=== PATIENT | female | born 1950 | race African-American/Black ===

== ENCOUNTER → 2022-09-11 | Outpatient (CLI) | payer MEDICARE, MEDICAID ==
[~2022-09-11] MED LIST: ALBU18; AMLO-496 PO; ASPI81CH43; ATOR-47 PO; BECL80AE9; CARV25TA55 PO; DORZOLAMIDE TIMOLOL; DOXY-332 PO; FERR325T20 PO; FURO40TA4 PO; IBU800T; LOSA-69 PO; NITROSTAT; PRED20TA2 PO; SULF500T37
[2022-09-11 15:05] LABS: Eosinophils # (auto) 0 10 ^3/uL (0-0.8); Lymphocytes # (auto) 1.4 10 ^3/uL (0.4-5.4)
[2022-09-11 15:07] LABS: Basophils # (auto) 0.1 10 ^3/uL (0-0.2); Basophils % (auto) 0.7 % (0.0-2.0); Eosinophils % (auto) 0.1 % (0.0-7.0); Hematocrit 39.7 % (36.0-46.0); Hemoglobin 12.9 g/dL (12.2-16.2); Lymphocytes % (auto) 19.7 % (10.0-50.0); Mean Corpuscular Hemoglobin 26.1 pg (28.0-32.0); Mean Corpuscular Hgb Conc. 32.5 g/dL (32.0-36.0); Mean Corpuscular Volume 80.5 fL (80.0-100.0); Monocytes # (auto) 0.6 10 ^3/uL (0-1.3); Monocytes % (auto) 7.7 % (0.0-12.0); Neutrophils # (auto) 5.2 10 ^3/uL (1.6-8.6); Neutrophils % (auto) 71.8 % (37.0-80.0); Nucleated Red Blood Cells % 0.4 %; Red Blood Cells 4.93 10^6/uL (4.0-5.20); White Blood Cell 7.3 10^3/uL (4.4-10.8)
[2022-09-11 15:09] LABS: Red Cell Distribution Width 20.9 % (11.8-14.3)
[2022-09-11 16:15] LABS: Albumin 3.4 g/dL (3.4-5.0); BUN/Creatinine Ratio 17.5 (10.0-20.0); Calcium 9.3 mg/dL (8.5-10.1); Potassium 3.9 mmol/L (3.5-5.1)
[2022-09-11 16:17] LABS: Bilirubin, Total 0.8 mg/dL (0.2-1.0); Total Protein 7.6 g/dL (6.4-8.2)
== END | disposition home or self-care (01) ==
LOC: LAB 14:35
PROVIDERS: ATTEND Student in an Organized Health Care Education/Training Program
DX: I12.9 Hypertensive chronic kidney disease with stage 1 through stage 4 chronic kidney disease, or unspecified chronic kidney disease (principal); N18.31 Chronic kidney disease, stage 3a; R73.03 Prediabetes; J96.00 Acute respiratory failure, unspecified whether with hypoxia or hypercapnia; Z79.899 Other long term (current) drug therapy
CPT/HCPCS: 36415; 80053; 80061; 83036; 85025

== ENCOUNTER 2022-09-25 16:12 | Inpatient (IN) | payer MEDICARE, MEDICAID ==
[~2022-09-25] VITALS: Ht 142.2 cm; Wt 70.7 kg
[2022-09-25 17:15] LABS: Basophils # (auto) 0.1 10 ^3/uL (0-0.2); Basophils % (auto) 1.1 % (0.0-2.0); Eosinophils # (auto) 0 10 ^3/uL (0-0.8); Eosinophils % (auto) 0.1 % (0.0-7.0); Hematocrit 38.5 % (36.0-46.0); Hemoglobin 11.8 g/dL (12.2-16.2); Mean Corpuscular Hgb Conc. 30.7 g/dL (32.0-36.0); Mean Corpuscular Volume 84.8 fL (80.0-100.0); Monocytes # (auto) 0.6 10 ^3/uL (0-1.3); Monocytes % (auto) 7.6 % (0.0-12.0); Neutrophils # (auto) 5.6 10 ^3/uL (1.6-8.6); Neutrophils % (auto) 67.2 % (37.0-80.0); Nucleated Red Blood Cells % 0.1 %; Red Blood Cells 4.55 10^6/uL (4.0-5.20); White Blood Cell 8.3 10^3/uL (4.4-10.8)
[2022-09-25 17:23] LABS: Albumin 3.2 g/dL (3.4-5.0); Calcium 8.5 mg/dL (8.5-10.1); Potassium 3.9 mmol/L (3.5-5.1)
[2022-09-25 17:28] LABS: BUN/Creatinine Ratio 13.3 (10.0-20.0); Bilirubin, Total 0.9 mg/dL (0.2-1.0); Total Protein 6.8 g/dL (6.4-8.2)
[2022-09-25] MEDS ORDERED: methylPREDNISolone SOD SUCC 125 MG/2 ML VL IV ONE (17:30)
[2022-09-25] MEDS ORDERED: FUROSEMIDE 40 MG/4 ML VIAL IV ONE (17:30)
[2022-09-26] MEDS ORDERED: ACETAMINOPHEN 325 MG TAB PO PRN (01:00)
[2022-09-26] MEDS ORDERED: ALBUTEROL SULF 2.5 MG/0.5ML(0.5%) NEB SOLN NEB PRN (01:00)
[2022-09-26 01:41] VITALS: BP 158/86
[2022-09-26 01:45] LABS: Cholesterol 162 mg/dL (< 200); Triglycerides 86 mg/dL (< 150)
[2022-09-26 01:48] LABS: HDL Cholesterol 49 mg/dL (40-59); LDL Cholesterol 105 mg/dL (< 100)
[2022-09-26] MEDS: SODIUM CHLORIDE 0.9% 1,000 ML IV SCH ×2 (01:54→17:40)
[2022-09-26] MEDS: ALBUTEROL SULF 2.5 MG/0.5ML(0.5%) NEB SOLN NEB SCH ×7 (02:00→22:26)
[2022-09-26] MEDS: IPRATROPIUM BROM 0.5 MG/2.5ML INH SOL NEB SCH ×7 (02:00→22:26)
[2022-09-26] MEDS ORDERED: PATIENTS OWN MEDICATION (Ferrous Sulfate (Ferosul) 1 TAB) PO SCH (10:00)
[2022-09-26] MEDS: CARVEDILOL 12.5 MG TAB PO SCH ×2 (10:00→22:08)
[2022-09-26] MEDS ORDERED: PATIENTS OWN MEDICATION (Carvedilol 1 TAB) PO SCH (10:00)
[2022-09-26] MEDS ORDERED: PATIENTS OWN MEDICATION (Amlodipine Besylate 1 TAB) PO SCH (10:00)
[2022-09-26 10:33] LABS: INR 1.12 (0.9-1.15); Partial Thromboplastin Time 27.9 sec (24.6-33.4)
[2022-09-26] MEDS: ENOXAPARIN SOD 40 MG/0.4 ML SYRINGE SC SCH (11:29)
[2022-09-26] MEDS: FUROSEMIDE 20 MG/2 ML VIAL IV SCH (11:29)
[2022-09-26] MEDS: LOSARTAN POTASSIUM 50 MG TAB PO SCH ×2 (11:29→22:07)
[2022-09-26] MEDS: FERROUS SULFATE 325mg EC TAB PO SCH ×2 (11:30→22:08)
[2022-09-26] MEDS: ASPirin 81 mg TAB PO SCH (11:30)
[2022-09-26] MEDS: amLODIPine BESYLATE 5 MG TAB PO SCH (11:30)
[2022-09-26] MEDS ORDERED: cefTRIAXone 1GM/50ML D5W 50 ML IV ONE (12:30)
[2022-09-26] MEDS ORDERED: AZITHROMYCIN 500MG/ 250ML 250 ML IV ONE (13:15)
[2022-09-26] MEDS ORDERED: diphenhdrAMINE HCL 50 MG/1 ML VL IV ONE ×2 (15:45→16:15)
[2022-09-26] MEDS ORDERED: diphenhdrAMINE HCL 50 MG/1 ML VL ONE (15:46)
[2022-09-26] MEDS ORDERED: methylPREDNISolone SOD SUCC 125 MG/2 ML VL ONE (15:49)
[2022-09-26] MEDS ORDERED: methylPREDNISolone SOD SUCC 125 MG/2 ML VL IV ONE (16:15)
[2022-09-26 20:00] VITALS: BP 123/87
[2022-09-26] MEDS ORDERED: CLON0.1T PO (20:31)
[2022-09-26] MEDS: ATORVASTATIN 20 MG TAB PO SCH (22:07)
[2022-09-26 22:08] VITALS: BP 123/87
[2022-09-27] MEDS: ALBUTEROL SULF 2.5 MG/0.5ML(0.5%) NEB SOLN NEB SCH ×6 (02:00→22:24)
[2022-09-27] MEDS: IPRATROPIUM BROM 0.5 MG/2.5ML INH SOL NEB SCH ×6 (02:00→22:24)
[2022-09-27 04:44] VITALS: BP 102/49
[2022-09-27 06:30] LABS: Albumin 2.6 g/dL (3.4-5.0); Basophils # (auto) 0 10 ^3/uL (0-0.2); Calcium 8.5 mg/dL (8.5-10.1); Eosinophils # (auto) 0 10 ^3/uL (0-0.8); Lymphocytes # (auto) 1.2 10 ^3/uL (0.4-5.4); Lymphocytes % (auto) 9.7 % (10.0-50.0); Monocytes # (auto) 0.6 10 ^3/uL (0-1.3)
[2022-09-27 06:32] LABS: Basophils % (auto) 0.1 % (0.0-2.0); Hematocrit 32.5 % (36.0-46.0); Hemoglobin 10.3 g/dL (12.2-16.2); Mean Corpuscular Hemoglobin 26.2 pg (28.0-32.0); Mean Corpuscular Hgb Conc. 31.6 g/dL (32.0-36.0); Mean Corpuscular Volume 82.9 fL (80.0-100.0); Monocytes % (auto) 4.5 % (0.0-12.0); Neutrophils # (auto) 10.8 10 ^3/uL (1.6-8.6); Neutrophils % (auto) 85.7 % (37.0-80.0); Nucleated Red Blood Cells % 0.1 %; Red Blood Cells 3.93 10^6/uL (4.0-5.20); Red Cell Distribution Width 19.8 % (11.8-14.3); White Blood Cell 12.6 10^3/uL (4.4-10.8)
[2022-09-27 06:36] LABS: BUN/Creatinine Ratio 21.7 (10.0-20.0); Bilirubin, Total 0.4 mg/dL (0.2-1.0); Total Protein 6.3 g/dL (6.4-8.2)
[2022-09-27] MEDS ORDERED: cefTRIAXone 1GM/50ML D5W 50 ML IV SCH (09:00)
[2022-09-27 09:04] VITALS: BP 126/54
[2022-09-27] MEDS: FERROUS SULFATE 325mg EC TAB PO SCH ×2 (09:24→21:29)
[2022-09-27] MEDS: amLODIPine BESYLATE 5 MG TAB PO SCH (09:24)
[2022-09-27] MEDS: LOSARTAN POTASSIUM 50 MG TAB PO SCH ×2 (09:24→21:29)
[2022-09-27] MEDS: ASPirin 81 mg TAB PO SCH (09:25)
[2022-09-27] MEDS: FUROSEMIDE 20 MG/2 ML VIAL IV SCH (09:25)
[2022-09-27] MEDS: CARVEDILOL 12.5 MG TAB PO SCH ×2 (09:25→21:29)
[2022-09-27] MEDS: ENOXAPARIN SOD 40 MG/0.4 ML SYRINGE SC SCH (09:26)
[2022-09-27] MEDS: AZITHROMYCIN 500MG/ 250ML 250 ML IV SCH (09:26)
[2022-09-27] MEDS: SODIUM CHLORIDE 0.9% 1,000 ML IV SCH (10:20)
[2022-09-27 12:23] VITALS: BP 114/63
[2022-09-27 16:28] VITALS: BP 106/49
[2022-09-27] MEDS: ATORVASTATIN 20 MG TAB PO SCH (21:32)
[2022-09-28] VITALS (8 sets, daily range): BP systolic 101–166; BP diastolic 52–83
[2022-09-28] MEDS: IPRATROPIUM BROM 0.5 MG/2.5ML INH SOL NEB SCH ×7 (02:00→22:06)
[2022-09-28] MEDS: ALBUTEROL SULF 2.5 MG/0.5ML(0.5%) NEB SOLN NEB SCH ×7 (02:00→22:06)
[2022-09-28] MEDS: SODIUM CHLORIDE 0.9% 1,000 ML IV SCH ×2 (03:00→19:40)
[2022-09-28] MEDS: ASPirin 81 mg TAB PO SCH (09:49)
[2022-09-28] MEDS: AZITHROMYCIN 500MG/ 250ML 250 ML IV SCH (09:49)
[2022-09-28] MEDS: FUROSEMIDE 20 MG/2 ML VIAL IV SCH (09:49)
[2022-09-28] MEDS: FERROUS SULFATE 325mg EC TAB PO SCH ×2 (09:49→21:30)
[2022-09-28] MEDS: amLODIPine BESYLATE 5 MG TAB PO SCH (09:50)
[2022-09-28] MEDS: LOSARTAN POTASSIUM 50 MG TAB PO SCH ×2 (09:50→21:30)
[2022-09-28] MEDS: CARVEDILOL 12.5 MG TAB PO SCH ×2 (09:50→21:30)
[2022-09-28] MEDS: ENOXAPARIN SOD 40 MG/0.4 ML SYRINGE SC SCH (09:50)
[2022-09-28] MEDS ORDERED: ALBUAER3 IN (10:50)
[2022-09-28] MEDS ORDERED: AZIT500T66 PO (10:50)
[2022-09-28] MEDS: ATORVASTATIN 20 MG TAB PO SCH (21:30)
[2022-09-29] MEDS: IPRATROPIUM BROM 0.5 MG/2.5ML INH SOL NEB SCH ×4 (02:19→15:04)
[2022-09-29] MEDS: ALBUTEROL SULF 2.5 MG/0.5ML(0.5%) NEB SOLN NEB SCH ×4 (02:19→15:04)
[2022-09-29 03:29] VITALS: BP 154/76
[2022-09-29 05:00] VITALS: BP 111/48
[2022-09-29 08:00] VITALS: BP 135/64
[2022-09-29 08:10] VITALS: BP 135/64
[2022-09-29] MEDS: FERROUS SULFATE 325mg EC TAB PO SCH (10:18)
[2022-09-29] MEDS: CARVEDILOL 12.5 MG TAB PO SCH (10:18)
[2022-09-29] MEDS: amLODIPine BESYLATE 5 MG TAB PO SCH (10:19)
[2022-09-29] MEDS: ENOXAPARIN SOD 40 MG/0.4 ML SYRINGE SC SCH (10:20)
[2022-09-29] MEDS: FUROSEMIDE 20 MG/2 ML VIAL IV SCH (10:20)
[2022-09-29] MEDS: ASPirin 81 mg TAB PO SCH (10:20)
[2022-09-29] MEDS: AZITHROMYCIN 500MG/ 250ML 250 ML IV SCH (10:20)
[2022-09-29] MEDS: LOSARTAN POTASSIUM 50 MG TAB PO SCH (10:22)
[2022-09-29 12:15] VITALS: BP 142/63
[2022-09-29] MEDS: SODIUM CHLORIDE 0.9% 1,000 ML IV SCH (12:20)
== END 2022-09-29 16:39 | disposition home or self-care (01) | DRG 139 ==
LOC: ER 16:12 → OVERFLOW 09-26 01:04 → WEST WING 09-26 18:25
PROVIDERS: ADMIT Nurse Practitioner Family; ATTEND Family Medicine
DX: J18.9 Pneumonia, unspecified organism (principal); J96.01 Acute respiratory failure with hypoxia; I27.0 Primary pulmonary hypertension; J44.1 Chronic obstructive pulmonary disease with (acute) exacerbation; J44.0 Chronic obstructive pulmonary disease with (acute) lower respiratory infection; E66.01 Morbid (severe) obesity due to excess calories; Z20.822 Contact with and (suspected) exposure to COVID-19; Z96.651 Presence of right artificial knee joint; M06.9 Rheumatoid arthritis, unspecified; I25.10 Atherosclerotic heart disease of native coronary artery without angina pectoris; E78.00 Pure hypercholesterolemia, unspecified; Z87.891 Personal history of nicotine dependence; Z82.49 Family history of ischemic heart disease and other diseases of the circulatory system; Z68.34 Body mass index [BMI] 34.0-34.9, adult; I25.2 Old myocardial infarction; Z98.51 Tubal ligation status; Z88.8 Allergy status to other drugs, medicaments and biological substances
CPT/HCPCS: 36415; 71045; 80053; 80061; 83735; 83880; 84443; 84484; 85025; 85610; 85730; 93005; 94640; 96365; 96368; 96372; 96375; 96376; G0378; J0696

== ENCOUNTER 2023-03-16 21:32 | Inpatient (IN) | payer MEDICARE, MEDICAID ==
[~2023-03-16] VITALS: Ht 142.2 cm; Wt 64.2 kg
[~2023-03-16 21:32] MED LIST changes: +ALBUAER3 IN; -AMLO-496 PO; +AMLO1TAB23 PO; +AZIT500T66 PO; +CLON0.1T PO; -DOXY-332 PO; -LOSA-69 PO; +LOSA50TA46 PO; -PRED20TA2 PO; -SULF500T37
[2023-03-16 22:05] LABS: Basophils # (auto) 0 10 ^3/uL (0-0.2); Basophils % (auto) 0.3 % (0.0-2.0); Eosinophils # (auto) 0 10 ^3/uL (0-0.8); Eosinophils % (auto) 0.1 % (0.0-7.0); Hemoglobin 13.7 g/dL (12.2-16.2); Lymphocytes # (auto) 2.8 10 ^3/uL (0.4-5.4); Lymphocytes % (auto) 26.8 % (10.0-50.0); Mean Corpuscular Hemoglobin 27.2 pg (28.0-32.0); Monocytes # (auto) 0.9 10 ^3/uL (0-1.3); Monocytes % (auto) 8.7 % (0.0-12.0); Neutrophils # (auto) 6.6 10 ^3/uL (1.6-8.6); Neutrophils % (auto) 64.1 % (37.0-80.0); Nucleated Red Blood Cells % 0.2 %; Red Blood Cells 5.06 10^6/uL (4.0-5.20); Red Cell Distribution Width 19.3 % (11.8-14.3); White Blood Cell 10.4 10^3/uL (4.4-10.8)
[2023-03-16 22:25] LABS: Alanine Aminotransferase 24 U/L (7-40); Alkaline Phosphatase 79 U/L (46-116); Anion Gap 4 (5-15); Aspartate Aminotransferase 13 U/L (13-40); BUN/Creatinine Ratio 13.3 (10.0-20.0); Bilirubin, Total 0.8 mg/dL (0.2-1.0); Blood Urea Nitrogen 11 mg/dL (9-23); Calcium 9.8 mg/dL (8.7-10.4); Carbon Dioxide 35 mmol/L (20-30); Chloride 99 mmol/L (98-107); Glucose 117 mg/dL (74-106); Magnesium 1.8 mg/dL (1.6-2.6); Potassium 3.8 mmol/L (3.5-5.1); Sodium 138 mmol/L (136-145); Total Protein 7.1 g/dL (5.7-8.2)
[2023-03-16 22:40] LABS: INR 1.08 (0.9-1.15); Partial Thromboplastin Time 25.6 SEC (24.5-34.5); Prothrombin Time 11.3 sec (9.3-11.8)
[2023-03-16 22:45] VITALS: PULSE 55; RESP 16; O2SAT 98
[2023-03-16 23:02] LABS: Urine Bacteria NONE SEEN /hpf (None Seen); Urine Blood Negative /uL (Negative); Urine Clarity Clear (Clear); Urine Color Yellow (Yellow); Urine Protein, UAD TRACE (Negative); Urine Specific Gravity 1.014 (1.001-1.035); Urine Urobilinogen Normal (Negative); Urine WBC 1 /hpf (0 - 5)
[2023-03-17] VITALS (8 sets, daily range): BP systolic 135–175; BP diastolic 56–67; PULSE 50–83; RESP 12–22; TEMP 97.9–98.1; O2SAT 91–100
[2023-03-17] MEDS ORDERED: cloNIDine HCL 0.1 MG TAB PO PRN (10:00)
[2023-03-17] MEDS ORDERED: ONDANSETRON HCL 4 MG/2 ML VIAL IV PRN (10:15)
[2023-03-17] MEDS ORDERED: ACETAMINOPHEN 325 MG TAB PO PRN (10:15)
[2023-03-17] MEDS ORDERED: MORPHINE SULFATE 4 MG/ML SYR/VIAL IV PRN (10:15)
[2023-03-17] MEDS ORDERED: NITROGLYCERIN 0.4 MG SL TAB SL PRN (10:15)
[2023-03-17] MEDS: ASPirin 81 mg TAB PO SCH (10:23)
[2023-03-17] MEDS: LOSARTAN POTASSIUM 50 MG TAB PO SCH ×2 (10:23→22:02)
[2023-03-17] MEDS: ALBUTEROL MEDNEB 2.5 mg/3ml NEB NEB SCH ×3 (10:45→22:23)
[2023-03-17] MEDS: IPRATROPIUM BROM 0.5 MG/2.5ML INH SOL NEB SCH ×4 (10:45→22:23)
[2023-03-17 11:37] LABS: INR 1.07 (0.9-1.15); Prothrombin Time 11.2 sec (9.3-11.8)
[2023-03-17] MEDS: FUROSEMIDE 40 MG/4 ML VIAL IV SCH (18:06)
[2023-03-17] MEDS: FERROUS SULFATE 325mg EC TAB PO SCH (22:01)
[2023-03-17] MEDS: ATORVASTATIN 20 MG TAB PO SCH (22:02)
[2023-03-17] MEDS ORDERED: SILD20TA12 PO (23:49)
[2023-03-17] MEDS ORDERED: PRED10TA PO (23:49)
[2023-03-17] MEDS ORDERED: FLUT1AER17 INH (23:49)
[2023-03-17] MEDS ORDERED: ASCO500T6 PO (23:49)
[2023-03-18] VITALS (19 sets, daily range): BP systolic 108–142; BP diastolic 45–95; PULSE 41–94; RESP 16–20; TEMP 97.6–98.5; O2SAT 93–100
[2023-03-18] MEDS: ALBUTEROL MEDNEB 2.5 mg/3ml NEB NEB SCH ×6 (02:06→19:54)
[2023-03-18] MEDS: IPRATROPIUM BROM 0.5 MG/2.5ML INH SOL NEB SCH ×6 (02:06→19:55)
[2023-03-18 05:59] LABS: Basophils # (auto) 0.1 10 ^3/uL (0-0.2); Basophils % (auto) 0.6 % (0.0-2.0); Eosinophils # (auto) 0 10 ^3/uL (0-0.8); Eosinophils % (auto) 0.1 % (0.0-7.0); Hematocrit 41.5 % (36.0-46.0); Hemoglobin 13.2 g/dL (12.2-16.2); Lymphocytes # (auto) 1.9 10 ^3/uL (0.4-5.4); Lymphocytes % (auto) 19.9 % (10.0-50.0); Mean Corpuscular Hemoglobin 27.3 pg (28.0-32.0); Mean Corpuscular Hgb Conc. 31.8 g/dL (32.0-36.0); Mean Corpuscular Volume 86.1 fL (80.0-100.0); Monocytes # (auto) 0.9 10 ^3/uL (0-1.3); Neutrophils # (auto) 6.6 10 ^3/uL (1.6-8.6); Neutrophils % (auto) 70.4 % (37.0-80.0); Red Blood Cells 4.82 10^6/uL (4.0-5.20); Red Cell Distribution Width 19.4 % (11.8-14.3); White Blood Cell 9.4 10^3/uL (4.4-10.8)
[2023-03-18] MEDS: FUROSEMIDE 40 MG/4 ML VIAL IV SCH ×2 (06:02→17:43)
[2023-03-18 06:14] LABS: Alanine Aminotransferase 21 U/L (7-40); Albumin 3.5 g/dL (3.2-4.8); Alkaline Phosphatase 76 U/L (46-116); Anion Gap 5 (5-15); Aspartate Aminotransferase 13 U/L (13-40); BUN/Creatinine Ratio 18.8 (10.0-20.0); Blood Urea Nitrogen 16 mg/dL (9-23); Calcium 9.1 mg/dL (8.7-10.4); Carbon Dioxide 33 mmol/L (20-30); Chloride 100 mmol/L (98-107); Glucose 102 mg/dL (74-106); Potassium 3.7 mmol/L (3.5-5.1); Sodium 138 mmol/L (136-145); Total Protein 6.4 g/dL (5.7-8.2)
[2023-03-18] MEDS: ASPirin 81 mg TAB PO SCH (10:06)
[2023-03-18] MEDS: FERROUS SULFATE 325mg EC TAB PO SCH ×2 (10:06→21:46)
[2023-03-18] MEDS: DOCUSATE SOD 100 MG CAP PO SCH (10:06)
[2023-03-18] MEDS: LOSARTAN POTASSIUM 50 MG TAB PO SCH ×2 (10:07→21:47)
[2023-03-18] MEDS: amLODIPine BESYLATE 5 MG TAB PO SCH (10:07)
[2023-03-18] MEDS ORDERED: AZITHROMYCIN 500MG/ 250ML 250 ML IV ONE (11:45)
[2023-03-18] MEDS: THROAT LOZENGES(CEPASTAT) MT PRN ×2 (16:15→22:29)
[2023-03-18] MEDS: ATORVASTATIN 20 MG TAB PO SCH (21:46)
[2023-03-18 23:46] LABS: COVID19 ANTIGEN SOFIA FIA NEGATIVE (NEGATIVE)
[2023-03-19] VITALS (14 sets, daily range): BP systolic 93–126; BP diastolic 46–84; PULSE 30–81; RESP 12–20; TEMP 97.7–98.3; O2SAT 92–100
[2023-03-19] MEDS: IPRATROPIUM BROM 0.5 MG/2.5ML INH SOL NEB SCH ×6 (02:53→22:00)
[2023-03-19] MEDS: ALBUTEROL MEDNEB 2.5 mg/3ml NEB NEB SCH ×6 (02:53→22:00)
[2023-03-19] MEDS: FUROSEMIDE 40 MG/4 ML VIAL IV SCH ×2 (06:03→17:55)
[2023-03-19] MEDS ORDERED: REGADENOSON 0.4 MG/5 ML SYRG IV ONE ×2 (08:00→08:53)
[2023-03-19] MEDS: AZITHROMYCIN 500MG/ 250ML 250 ML IV SCH (11:14)
[2023-03-19] MEDS: ASPirin 81 mg TAB PO SCH (11:15)
[2023-03-19] MEDS: LOSARTAN POTASSIUM 50 MG TAB PO SCH ×2 (11:15→21:44)
[2023-03-19] MEDS: FERROUS SULFATE 325mg EC TAB PO SCH ×2 (11:15→21:36)
[2023-03-19] MEDS: amLODIPine BESYLATE 5 MG TAB PO SCH (11:16)
[2023-03-19] MEDS: DOCUSATE SOD 100 MG CAP PO SCH (11:16)
[2023-03-19] MEDS: ATORVASTATIN 20 MG TAB PO SCH (21:36)
[2023-03-20] VITALS (16 sets, daily range): BP systolic 51–128; BP diastolic 43–91; PULSE 56–77; RESP 16–20; TEMP 97.5–98.1; O2SAT 94–100
[2023-03-20] MEDS: IPRATROPIUM BROM 0.5 MG/2.5ML INH SOL NEB SCH ×4 (02:00→13:36)
[2023-03-20] MEDS: ALBUTEROL MEDNEB 2.5 mg/3ml NEB NEB SCH ×4 (02:00→13:36)
[2023-03-20] MEDS: FUROSEMIDE 40 MG/4 ML VIAL IV SCH ×2 (06:41→18:34)
[2023-03-20] MEDS: amLODIPine BESYLATE 5 MG TAB PO SCH (09:48)
[2023-03-20] MEDS: DOCUSATE SOD 100 MG CAP PO SCH (09:48)
[2023-03-20] MEDS: AZITHROMYCIN 500MG/ 250ML 250 ML IV SCH (09:48)
[2023-03-20] MEDS: FERROUS SULFATE 325mg EC TAB PO SCH (09:48)
[2023-03-20] MEDS: LOSARTAN POTASSIUM 50 MG TAB PO SCH (09:49)
[2023-03-20] MEDS: ASPirin 81 mg TAB PO SCH (09:49)
[2023-03-20] MEDS ORDERED: AZIT500T66 PO (11:17)
== END 2023-03-20 19:08 | disposition home or self-care (01) | DRG 137 ==
LOC: ER 21:32 → TELE 03-17 10:19 → TELE-WESTW 03-17 21:57
PROVIDERS: ADMIT Nurse Practitioner Family; ATTEND Family Medicine
DX: J15.69 Pneumonia due to other Gram-negative bacteria (principal); J96.01 Acute respiratory failure with hypoxia; I50.43 Acute on chronic combined systolic (congestive) and diastolic (congestive) heart failure; I27.20 Pulmonary hypertension, unspecified; J45.901 Unspecified asthma with (acute) exacerbation; J44.0 Chronic obstructive pulmonary disease with (acute) lower respiratory infection; J84.9 Interstitial pulmonary disease, unspecified; J15.9 Unspecified bacterial pneumonia; J44.1 Chronic obstructive pulmonary disease with (acute) exacerbation; I11.0 Hypertensive heart disease with heart failure; Z20.822 Contact with and (suspected) exposure to COVID-19; I25.10 Atherosclerotic heart disease of native coronary artery without angina pectoris; M1A.9XX0 Chronic gout, unspecified, without tophus (tophi); E78.5 Hyperlipidemia, unspecified; M06.9 Rheumatoid arthritis, unspecified; Z87.891 Personal history of nicotine dependence; Z82.49 Family history of ischemic heart disease and other diseases of the circulatory system; Z98.51 Tubal ligation status; I25.2 Old myocardial infarction; Z88.8 Allergy status to other drugs, medicaments and biological substances
CPT/HCPCS: 36415; 71045; 78452; 80053; 81001; 83735; 83880; 84484; 85025; 85610; 85730; 87426; 93005; 93017; 93306; 94640; G0378

== ENCOUNTER 2023-06-11 09:46 | Inpatient (IN) | payer MEDICARE, MEDICAID ==
[~2023-06-11] VITALS: Ht 144.8 cm; Wt 70.9 kg
[~2023-06-11 09:46] MED LIST changes: -ALBU18; +ASCO500T6 PO; -DORZOLAMIDE TIMOLOL; +FLUT1AER17 INH; -IBU800T; -NITROSTAT; +PRED10TA PO; +SILD20TA12 PO
[2023-06-11] MEDS ORDERED: methylPREDNISolone SOD SUCC 125 MG/2 ML VL IV ONE (10:15)
[2023-06-11 10:45] LABS: Basophils # (auto) 0 10 ^3/uL (0-0.2); Basophils % (auto) 0.3 % (0.0-2.0); Eosinophils # (auto) 0 10 ^3/uL (0-0.8); Eosinophils % (auto) 0.2 % (0.0-7.0); Hematocrit 40.9 % (36.0-46.0); Hemoglobin 13.1 g/dL (12.2-16.2); Lymphocytes # (auto) 1.3 10 ^3/uL (0.4-5.4); Lymphocytes % (auto) 18.3 % (10.0-50.0); Mean Corpuscular Hemoglobin 29.1 pg (28.0-32.0); Mean Corpuscular Hgb Conc. 31.9 g/dL (32.0-36.0); Monocytes # (auto) 0.6 10 ^3/uL (0-1.3); Monocytes % (auto) 8.7 % (0.0-12.0); Neutrophils # (auto) 5.3 10 ^3/uL (1.6-8.6); Neutrophils % (auto) 72.5 % (37.0-80.0); Nucleated Red Blood Cells % 0.1 %; Red Cell Distribution Width 14.9 % (11.8-14.3); White Blood Cell 7.3 10^3/uL (4.4-10.8)
[2023-06-11 10:55] LABS: Urine Epithelial Cast None Seen /hpf (<5)
[2023-06-11] MEDS ORDERED: FUROSEMIDE 40 MG/4 ML VIAL IV ONE (11:00)
[2023-06-11 11:26] LABS: Urine Bacteria NONE SEEN /hpf (None Seen); Urine Blood Negative /uL (Negative); Urine Clarity Clear (Clear); Urine Hyaline Cast FEW /lpf (0 - 2); Urine Protein, UAD 1+ (Negative); Urine Specific Gravity 1.011 (1.001-1.035); Urine Urobilinogen Normal (Negative); Urine WBC <1 /hpf (0 - 5)
[2023-06-11 11:36] LABS: Urine Color Straw (Yellow)
[2023-06-11 12:04] LABS: Alkaline Phosphatase 112 U/L (46-116); Glucose 90 mg/dL (74-106)
[2023-06-11 12:05] LABS: Magnesium 1.8 mg/dL (1.6-2.6)
[2023-06-11 12:06] LABS: Albumin 4.2 g/dL (3.2-4.8); Aspartate Aminotransferase 19 U/L (13-40); Bilirubin, Total 0.6 mg/dL (0.2-1.0); Total Protein 7.6 g/dL (5.7-8.2)
[2023-06-11 12:09] LABS: Alanine Aminotransferase 13 U/L (7-40); Anion Gap 6 (5-15); BUN/Creatinine Ratio 9.9 (10.0-20.0); Blood Urea Nitrogen 8 mg/dL (9-23); Calcium 9.6 mg/dL (8.7-10.4); Carbon Dioxide 30 mmol/L (20-30); Chloride 104 mmol/L (98-107); Sodium 140 mmol/L (136-145)
[2023-06-11 13:35] LABS: Rapid Influenza A Negative (Negative)
[2023-06-11 13:38] LABS: Rapid Influenza B Positive (Negative)
[2023-06-11 13:39] LABS: COVID19 ANTIGEN SOFIA FIA POSITIVE (NEGATIVE)
[2023-06-11] MEDS ORDERED: NITROGLYCERIN 0.4 MG SL TAB SL PRN (14:15)
[2023-06-11] MEDS ORDERED: ALBUTEROL SULF 2.5 MG/0.5ML(0.5%) NEB SOLN NEB PRN (14:15)
[2023-06-11] MEDS ORDERED: cloNIDine HCL 0.1 MG TAB PO PRN (14:15)
[2023-06-11] MEDS ORDERED: AZITHROMYCIN 500MG/ 250ML 250 ML IV ONE (14:15)
[2023-06-11] MEDS ORDERED: cefTRIAXone 1GM/50ML D5W 50 ML IV ONE ×2 (14:15→14:25)
[2023-06-11] MEDS ORDERED: ACETAMINOPHEN 325 MG TAB PO PRN (14:15)
[2023-06-11] MEDS ORDERED: MORPHINE SULFATE INJ 2 MG/ml SYRG IV PRN (14:15)
[2023-06-11 14:29] LABS: Triglycerides 101 mg/dL (< 150)
[2023-06-11 14:30] LABS: LDL Cholesterol 168 mg/dL (< 100)
[2023-06-11 14:31] LABS: Cholesterol 226 mg/dL (< 200); HDL Cholesterol 45 mg/dL (40-59)
[2023-06-11] MEDS: SODIUM CHLORIDE 0.9% 1,000 ML IV SCH (14:44)
[2023-06-11 15:26] LABS: Magnesium 1.8 mg/dL (1.6-2.6)
[2023-06-11 15:50] LABS: CRP High Sensitivity 2.71 mg/dL (<1.0)
[2023-06-11 15:54] VITALS: BP 118/52; PULSE 63; RESP 18; TEMP 98.3; O2SAT 96
[2023-06-11] MEDS: ALBUTEROL SULF 2.5 MG/0.5ML(0.5%) NEB SOLN NEB SCH ×2 (18:00→22:00)
[2023-06-11] MEDS: IPRATROPIUM BROM 0.5 MG/2.5ML INH SOL NEB SCH ×2 (18:00→22:00)
[2023-06-12] VITALS (15 sets, daily range): BP systolic 107–157; BP diastolic 36–77; PULSE 52–81; RESP 16–20; TEMP 97.6–99; O2SAT 92–98
[2023-06-12] MEDS: ALBUTEROL SULF 2.5 MG/0.5ML(0.5%) NEB SOLN NEB SCH ×2 (01:41→07:29)
[2023-06-12] MEDS: IPRATROPIUM BROM 0.5 MG/2.5ML INH SOL NEB SCH ×2 (01:41→07:28)
[2023-06-12] MEDS: ASCORBIC ACID 500 MG TAB PO SCH ×2 (01:48→09:31)
[2023-06-12] MEDS: CARVEDILOL 12.5 MG TAB PO SCH ×3 (01:48→22:01)
[2023-06-12] MEDS: LOSARTAN POTASSIUM 50 MG TAB PO SCH ×3 (01:48→22:00)
[2023-06-12] MEDS: ATORVASTATIN 20 MG TAB PO SCH ×2 (01:49→22:00)
[2023-06-12] MEDS: FERROUS SULFATE 325mg EC TAB PO SCH ×3 (01:49→22:00)
[2023-06-12] MEDS: SILDENAFIL CITRATE 20 MG TAB PO SCH ×4 (01:49→22:00)
[2023-06-12] MEDS: SODIUM CHLORIDE 0.9% 1,000 ML IV SCH (01:50)
[2023-06-12 06:29] LABS: Basophils # (auto) 0 10 ^3/uL (0-0.2); Basophils % (auto) 0.1 % (0.0-2.0); Eosinophils # (auto) 0 10 ^3/uL (0-0.8); Hematocrit 38.2 % (36.0-46.0); Hemoglobin 12.3 g/dL (12.2-16.2); Lymphocytes % (auto) 11.3 % (10.0-50.0); Mean Corpuscular Hemoglobin 28.8 pg (28.0-32.0); Mean Corpuscular Hgb Conc. 32.4 g/dL (32.0-36.0); Mean Corpuscular Volume 89.1 fL (80.0-100.0); Monocytes # (auto) 0.3 10 ^3/uL (0-1.3); Monocytes % (auto) 2.9 % (0.0-12.0); Neutrophils # (auto) 7.5 10 ^3/uL (1.6-8.6); Neutrophils % (auto) 85.7 % (37.0-80.0); Red Blood Cells 4.28 10^6/uL (4.0-5.20); Red Cell Distribution Width 14.9 % (11.8-14.3); White Blood Cell 8.8 10^3/uL (4.4-10.8)
[2023-06-12 06:44] LABS: Alanine Aminotransferase 11 U/L (7-40); Albumin 3.7 g/dL (3.2-4.8); Alkaline Phosphatase 101 U/L (46-116); Anion Gap 7 (5-15); Aspartate Aminotransferase 16 U/L (13-40); BUN/Creatinine Ratio 15.4 (10.0-20.0); Blood Urea Nitrogen 14 mg/dL (9-23); Carbon Dioxide 30 mmol/L (20-30); Chloride 102 mmol/L (98-107); Glucose 157 mg/dL (74-106); Potassium 3.4 mmol/L (3.5-5.1); Sodium 139 mmol/L (136-145)
[2023-06-12 06:45] LABS: Bilirubin, Total 0.5 mg/dL (0.2-1.0); Total Protein 6.8 g/dL (5.7-8.2)
[2023-06-12] MEDS ORDERED: cefTRIAXone 1GM/50ML D5W 50 ML IV SCH (09:00)
[2023-06-12] MEDS: DexAMETHasone SOD PHOS 10MG/1ML VIAL INJ IV SCH (09:30)
[2023-06-12] MEDS: ASCORBIC ACID 1,000 MG TAB PO SCH (09:31)
[2023-06-12] MEDS: ZINC SULFATE 220mg CAP or TAB PO SCH (09:31)
[2023-06-12] MEDS: ASPirin 81 mg TAB PO SCH (09:31)
[2023-06-12] MEDS: CHOLECALCIFEROL (VITD3) 2,000 UNIT CAP/TAB PO SCH (09:31)
[2023-06-12] MEDS: ENOXAPARIN SOD 40 MG/0.4 ML SYRINGE SC SCH (09:37)
[2023-06-12] MEDS: amLODIPine BESYLATE 5 MG TAB PO SCH (09:37)
[2023-06-12] MEDS ORDERED: AZITHROMYCIN 500MG/ 250ML 250 ML IV SCH (10:00)
[2023-06-12] MEDS ORDERED: REMDESIVIR PER PHARMACY 0 ML IV SCH (12:00)
[2023-06-12] MEDS ORDERED: REMDESIVIR 200 MG in NS 210ml LOADING DOSE ADULT IV ONE (13:00)
[2023-06-12] MEDS: ALBUTEROL SULF HFA 90MCG INH 200DOSE IN SCH ×2 (14:00→22:10)
[2023-06-12] MEDS: OSELTAMIVIR 30 MG CAP PO SCH ×2 (14:42→22:00)
[2023-06-12] MEDS: DOXYCYCLINE 100MG/250ML 250 ML IV SCH (14:43)
[2023-06-12] MEDS ORDERED: SOD CHL 0.9%/ KCL 40MEQ 1,000 ML IV ONE (15:15)
[2023-06-13] VITALS (11 sets, daily range): BP systolic 103–163; BP diastolic 44–76; PULSE 48–71; RESP 16–18; TEMP 97.5–98.7; O2SAT 91–97
[2023-06-13] MEDS: DOXYCYCLINE 100MG/250ML 250 ML IV SCH ×2 (00:07→11:49)
[2023-06-13] MEDS: ALBUTEROL SULF HFA 90MCG INH 200DOSE IN SCH ×3 (06:00→22:22)
[2023-06-13] MEDS: SILDENAFIL CITRATE 20 MG TAB PO SCH ×3 (06:15→22:34)
[2023-06-13 06:55] LABS: Basophils # (auto) 0 10 ^3/uL (0-0.2); Basophils % (auto) 0.1 % (0.0-2.0); Eosinophils # (auto) 0 10 ^3/uL (0-0.8); Hematocrit 35.4 % (36.0-46.0); Hemoglobin 11.3 g/dL (12.2-16.2); Lymphocytes % (auto) 6.6 % (10.0-50.0); Mean Corpuscular Hemoglobin 28.7 pg (28.0-32.0); Mean Corpuscular Volume 89.5 fL (80.0-100.0); Monocytes # (auto) 1.1 10 ^3/uL (0-1.3); Monocytes % (auto) 7.8 % (0.0-12.0); Neutrophils # (auto) 12.5 10 ^3/uL (1.6-8.6); Neutrophils % (auto) 85.5 % (37.0-80.0); Red Blood Cells 3.95 10^6/uL (4.0-5.20); Red Cell Distribution Width 14.8 % (11.8-14.3); White Blood Cell 14.6 10^3/uL (4.4-10.8)
[2023-06-13 07:07] LABS: Chloride 104 mmol/L (98-107); Potassium 4.4 mmol/L (3.5-5.1); Sodium 139 mmol/L (136-145)
[2023-06-13 07:08] LABS: Anion Gap 6 (5-15); Carbon Dioxide 29 mmol/L (20-30)
[2023-06-13 07:09] LABS: Calcium 8.8 mg/dL (8.5-10.1)
[2023-06-13 07:13] LABS: BUN/Creatinine Ratio 18.4 (10.0-20.0); Blood Urea Nitrogen 16 mg/dL (9-23); Glucose 100 mg/dL (74-106)
[2023-06-13] MEDS: OSELTAMIVIR 30 MG CAP PO SCH ×2 (09:52→22:09)
[2023-06-13] MEDS: ASCORBIC ACID 1,000 MG TAB PO SCH (09:52)
[2023-06-13] MEDS: ZINC SULFATE 220mg CAP or TAB PO SCH (09:52)
[2023-06-13] MEDS: LOSARTAN POTASSIUM 50 MG TAB PO SCH ×2 (09:53→22:11)
[2023-06-13] MEDS: ENOXAPARIN SOD 40 MG/0.4 ML SYRINGE SC SCH (09:53)
[2023-06-13] MEDS: CHOLECALCIFEROL (VITD3) 2,000 UNIT CAP/TAB PO SCH (09:53)
[2023-06-13] MEDS: ASPirin 81 mg TAB PO SCH (09:54)
[2023-06-13] MEDS: amLODIPine BESYLATE 5 MG TAB PO SCH (09:54)
[2023-06-13] MEDS: FERROUS SULFATE 325mg EC TAB PO SCH ×2 (09:54→22:12)
[2023-06-13] MEDS: CARVEDILOL 12.5 MG TAB PO SCH ×2 (09:55→22:12)
[2023-06-13] MEDS: DexAMETHasone SOD PHOS 10MG/1ML VIAL INJ IV SCH (09:55)
[2023-06-13] MEDS: REMDESIVIR 100mg 100 MG in SODIUM CHL 0.9% 230 ML IV SCH (14:54)
[2023-06-13] MEDS: ATORVASTATIN 20 MG TAB PO SCH (22:09)
[2023-06-14] VITALS (10 sets, daily range): BP systolic 110–153; BP diastolic 48–76; PULSE 57–75; RESP 16–21; TEMP 97.3–98.1; O2SAT 90–97
[2023-06-14] MEDS: DOXYCYCLINE 100MG/250ML 250 ML IV SCH ×2 (00:58→11:35)
[2023-06-14] MEDS: SILDENAFIL CITRATE 20 MG TAB PO SCH ×3 (05:42→22:39)
[2023-06-14] MEDS: ALBUTEROL SULF HFA 90MCG INH 200DOSE IN SCH ×3 (06:39→19:29)
[2023-06-14] MEDS: ZINC SULFATE 220mg CAP or TAB PO SCH (08:42)
[2023-06-14] MEDS: FERROUS SULFATE 325mg EC TAB PO SCH ×2 (08:45→22:37)
[2023-06-14] MEDS: ASCORBIC ACID 1,000 MG TAB PO SCH (08:46)
[2023-06-14] MEDS: OSELTAMIVIR 30 MG CAP PO SCH ×2 (08:46→22:39)
[2023-06-14] MEDS: ENOXAPARIN SOD 40 MG/0.4 ML SYRINGE SC SCH (08:46)
[2023-06-14] MEDS: CHOLECALCIFEROL (VITD3) 2,000 UNIT CAP/TAB PO SCH (08:46)
[2023-06-14] MEDS: ASPirin 81 mg TAB PO SCH (08:47)
[2023-06-14] MEDS: amLODIPine BESYLATE 5 MG TAB PO SCH (08:47)
[2023-06-14] MEDS: LOSARTAN POTASSIUM 50 MG TAB PO SCH ×2 (08:48→22:38)
[2023-06-14] MEDS: CARVEDILOL 12.5 MG TAB PO SCH ×2 (08:48→22:40)
[2023-06-14] MEDS: DexAMETHasone SOD PHOS 10MG/1ML VIAL INJ IV SCH (08:48)
[2023-06-14] MEDS: REMDESIVIR 100mg 100 MG in SODIUM CHL 0.9% 230 ML IV SCH (15:28)
[2023-06-14] MEDS: ATORVASTATIN 20 MG TAB PO SCH (22:37)
[2023-06-14] MEDS: DOXYCYCLINE 100 MG TAB/CAP PO SCH (22:40)
[2023-06-15] VITALS (10 sets, daily range): BP systolic 110–140; BP diastolic 46–66; PULSE 52–72; RESP 16–20; TEMP 97.8–98.6; O2SAT 90–96
[2023-06-15 05:50] LABS: Alanine Aminotransferase 24 U/L (7-40); Albumin 3.8 g/dL (3.2-4.8); Alkaline Phosphatase 88 U/L (46-116); Anion Gap 4 (5-15); Aspartate Aminotransferase 21 U/L (13-40); BUN/Creatinine Ratio 21.7 (10.0-20.0); Bilirubin, Total 0.4 mg/dL (0.2-1.0); Blood Urea Nitrogen 18 mg/dL (9-23); Calcium 9.5 mg/dL (8.5-10.1); Carbon Dioxide 32 mmol/L (20-30); Chloride 105 mmol/L (98-107); Glucose 92 mg/dL (74-106); Potassium 4.6 mmol/L (3.5-5.1); Sodium 141 mmol/L (136-145)
[2023-06-15 05:51] LABS: Total Protein 6.7 g/dL (5.7-8.2)
[2023-06-15] MEDS: SILDENAFIL CITRATE 20 MG TAB PO SCH ×3 (06:47→22:40)
[2023-06-15] MEDS: ALBUTEROL SULF HFA 90MCG INH 200DOSE IN SCH ×3 (07:06→19:23)
[2023-06-15] MEDS: DexAMETHasone SOD PHOS 10MG/1ML VIAL INJ IV SCH (09:40)
[2023-06-15] MEDS: ENOXAPARIN SOD 40 MG/0.4 ML SYRINGE SC SCH (09:40)
[2023-06-15] MEDS: CARVEDILOL 12.5 MG TAB PO SCH ×2 (09:42→22:47)
[2023-06-15] MEDS: FERROUS SULFATE 325mg EC TAB PO SCH ×2 (09:42→22:41)
[2023-06-15] MEDS: ZINC SULFATE 220mg CAP or TAB PO SCH (09:42)
[2023-06-15] MEDS: ASCORBIC ACID 1,000 MG TAB PO SCH (09:42)
[2023-06-15] MEDS: amLODIPine BESYLATE 5 MG TAB PO SCH (09:42)
[2023-06-15] MEDS: DOXYCYCLINE 100 MG TAB/CAP PO SCH ×2 (09:42→22:40)
[2023-06-15] MEDS: OSELTAMIVIR 30 MG CAP PO SCH ×2 (09:42→22:40)
[2023-06-15] MEDS: ASPirin 81 mg TAB PO SCH (09:43)
[2023-06-15] MEDS: CHOLECALCIFEROL (VITD3) 2,000 UNIT CAP/TAB PO SCH (09:43)
[2023-06-15] MEDS: LOSARTAN POTASSIUM 50 MG TAB PO SCH ×2 (09:43→22:45)
[2023-06-15] MEDS ORDERED: guaiFENesin 200 MG/10 ML UD PO ONE (12:00)
[2023-06-15] MEDS ORDERED: guaiFENesin 200 MG/10 ML UD PO PRN (12:00)
[2023-06-15] MEDS: REMDESIVIR 100mg 100 MG in SODIUM CHL 0.9% 230 ML IV SCH (17:40)
[2023-06-15] MEDS: ATORVASTATIN 20 MG TAB PO SCH (22:40)
[2023-06-16] VITALS (11 sets, daily range): BP systolic 117–134; BP diastolic 49–82; PULSE 46–98; RESP 14–20; TEMP 97.4–98.4; O2SAT 94–98
[2023-06-16 05:39] LABS: Basophils # (auto) 0 10 ^3/uL (0-0.2); Eosinophils # (auto) 0 10 ^3/uL (0-0.8); Hematocrit 39.1 % (36.0-46.0); Hemoglobin 12.6 g/dL (12.2-16.2); Lymphocytes % (auto) 9.7 % (10.0-50.0); Mean Corpuscular Hemoglobin 28.9 pg (28.0-32.0); Mean Corpuscular Hgb Conc. 32.2 g/dL (32.0-36.0); Mean Corpuscular Volume 89.8 fL (80.0-100.0); Monocytes # (auto) 0.8 10 ^3/uL (0-1.3); Monocytes % (auto) 7.4 % (0.0-12.0); Neutrophils # (auto) 8.4 10 ^3/uL (1.6-8.6); Neutrophils % (auto) 82.9 % (37.0-80.0); Nucleated Red Blood Cells % 0.1 %; Red Blood Cells 4.36 10^6/uL (4.0-5.20); White Blood Cell 10.2 10^3/uL (4.4-10.8)
[2023-06-16 06:10] LABS: Anion Gap 5 (5-15); Carbon Dioxide 32 mmol/L (20-30); Chloride 102 mmol/L (98-107); Potassium 4.5 mmol/L (3.5-5.1); Sodium 139 mmol/L (136-145)
[2023-06-16] MEDS: SILDENAFIL CITRATE 20 MG TAB PO SCH ×3 (06:10→22:10)
[2023-06-16 06:11] LABS: Calcium 8.9 mg/dL (8.7-10.4)
[2023-06-16 06:16] LABS: Blood Urea Nitrogen 21 mg/dL (9-23); Glucose 99 mg/dL (74-106)
[2023-06-16] MEDS: ALBUTEROL SULF HFA 90MCG INH 200DOSE IN SCH ×4 (06:45→22:11)
[2023-06-16] MEDS: LOSARTAN POTASSIUM 50 MG TAB PO SCH ×2 (11:02→23:37)
[2023-06-16] MEDS: amLODIPine BESYLATE 5 MG TAB PO SCH (11:02)
[2023-06-16] MEDS: CARVEDILOL 12.5 MG TAB PO SCH ×2 (11:03→22:10)
[2023-06-16] MEDS: ASPirin 81 mg TAB PO SCH (11:04)
[2023-06-16] MEDS: OSELTAMIVIR 30 MG CAP PO SCH ×2 (11:04→22:10)
[2023-06-16] MEDS: DOXYCYCLINE 100 MG TAB/CAP PO SCH ×2 (11:04→22:10)
[2023-06-16] MEDS: ASCORBIC ACID 1,000 MG TAB PO SCH (11:05)
[2023-06-16] MEDS: ENOXAPARIN SOD 40 MG/0.4 ML SYRINGE SC SCH (11:05)
[2023-06-16] MEDS: DexAMETHasone SOD PHOS 10MG/1ML VIAL INJ IV SCH (11:05)
[2023-06-16] MEDS: ZINC SULFATE 220mg CAP or TAB PO SCH (11:05)
[2023-06-16] MEDS: CHOLECALCIFEROL (VITD3) 2,000 UNIT CAP/TAB PO SCH (11:05)
[2023-06-16] MEDS: FERROUS SULFATE 325mg EC TAB PO SCH ×2 (11:05→22:10)
[2023-06-16] MEDS: REMDESIVIR 100mg 100 MG in SODIUM CHL 0.9% 230 ML IV SCH (15:55)
[2023-06-16] MEDS: ATORVASTATIN 20 MG TAB PO SCH (22:10)
[2023-06-17] VITALS (14 sets, daily range): BP systolic 123–143; BP diastolic 48–85; PULSE 52–90; RESP 12–20; TEMP 97.7–98.1; O2SAT 94–98
[2023-06-17] MEDS: SILDENAFIL CITRATE 20 MG TAB PO SCH ×3 (05:48→21:57)
[2023-06-17] MEDS: ALBUTEROL SULF HFA 90MCG INH 200DOSE IN SCH ×3 (06:49→21:33)
[2023-06-17] MEDS: ENOXAPARIN SOD 40 MG/0.4 ML SYRINGE SC SCH (11:29)
[2023-06-17] MEDS: DOXYCYCLINE 100 MG TAB/CAP PO SCH (11:29)
[2023-06-17] MEDS: DexAMETHasone SOD PHOS 10MG/1ML VIAL INJ IV SCH (11:29)
[2023-06-17] MEDS: CHOLECALCIFEROL (VITD3) 2,000 UNIT CAP/TAB PO SCH (11:30)
[2023-06-17] MEDS: ASCORBIC ACID 1,000 MG TAB PO SCH (11:30)
[2023-06-17] MEDS: ASPirin 81 mg TAB PO SCH (11:30)
[2023-06-17] MEDS: ZINC SULFATE 220mg CAP or TAB PO SCH (11:30)
[2023-06-17] MEDS: FERROUS SULFATE 325mg EC TAB PO SCH ×2 (11:30→21:57)
[2023-06-17] MEDS: amLODIPine BESYLATE 5 MG TAB PO SCH (11:31)
[2023-06-17] MEDS: CARVEDILOL 12.5 MG TAB PO SCH ×2 (11:32→21:47)
[2023-06-17] MEDS: LOSARTAN POTASSIUM 50 MG TAB PO SCH ×2 (11:32→21:59)
[2023-06-17] MEDS: ATORVASTATIN 20 MG TAB PO SCH (21:55)
[2023-06-18] VITALS (10 sets, daily range): BP systolic 119–166; BP diastolic 55–78; PULSE 56–78; RESP 14–18; TEMP 97.5–97.8; O2SAT 95–98
[2023-06-18] MEDS: SILDENAFIL CITRATE 20 MG TAB PO SCH ×3 (05:12→22:06)
[2023-06-18] MEDS: ALBUTEROL SULF HFA 90MCG INH 200DOSE IN SCH ×3 (08:05→22:16)
[2023-06-18] MEDS: CARVEDILOL 12.5 MG TAB PO SCH ×2 (11:12→22:07)
[2023-06-18] MEDS: ENOXAPARIN SOD 40 MG/0.4 ML SYRINGE SC SCH (11:12)
[2023-06-18] MEDS: CHOLECALCIFEROL (VITD3) 2,000 UNIT CAP/TAB PO SCH (11:12)
[2023-06-18] MEDS: DexAMETHasone SOD PHOS 10MG/1ML VIAL INJ IV SCH (11:13)
[2023-06-18] MEDS: ASPirin 81 mg TAB PO SCH (11:13)
[2023-06-18] MEDS: amLODIPine BESYLATE 5 MG TAB PO SCH (11:13)
[2023-06-18] MEDS: FERROUS SULFATE 325mg EC TAB PO SCH ×2 (11:14→22:05)
[2023-06-18] MEDS: ZINC SULFATE 220mg CAP or TAB PO SCH (11:14)
[2023-06-18] MEDS: ASCORBIC ACID 1,000 MG TAB PO SCH (11:14)
[2023-06-18] MEDS: LOSARTAN POTASSIUM 50 MG TAB PO SCH ×2 (11:14→22:06)
[2023-06-18] MEDS ORDERED: DOXY-448 PO (14:36)
[2023-06-18] MEDS ORDERED: GUAI-41 PO (14:36)
[2023-06-18] MEDS: ATORVASTATIN 20 MG TAB PO SCH (22:06)
[2023-06-19] MEDS: SILDENAFIL CITRATE 20 MG TAB PO SCH (05:35)
[2023-06-19 06:27] VITALS: PULSE 65; RESP 16; O2SAT 95
[2023-06-19] MEDS: ALBUTEROL SULF HFA 90MCG INH 200DOSE IN SCH (06:27)
[2023-06-19 06:33] VITALS: PULSE 66; RESP 18; O2SAT 97
[2023-06-19 09:00] VITALS: BP 137/79; PULSE 62; RESP 18; TEMP 97.8; O2SAT 95
[2023-06-19] MEDS: ASCORBIC ACID 1,000 MG TAB PO SCH (09:35)
[2023-06-19] MEDS: ZINC SULFATE 220mg CAP or TAB PO SCH (09:35)
[2023-06-19] MEDS: amLODIPine BESYLATE 5 MG TAB PO SCH (09:35)
[2023-06-19] MEDS: FERROUS SULFATE 325mg EC TAB PO SCH (09:36)
[2023-06-19] MEDS: LOSARTAN POTASSIUM 50 MG TAB PO SCH (09:36)
[2023-06-19] MEDS: CHOLECALCIFEROL (VITD3) 2,000 UNIT CAP/TAB PO SCH (09:36)
[2023-06-19] MEDS: CARVEDILOL 12.5 MG TAB PO SCH (09:36)
[2023-06-19] MEDS: ASPirin 81 mg TAB PO SCH (09:36)
[2023-06-19] MEDS: DexAMETHasone SOD PHOS 10MG/1ML VIAL INJ IV SCH (09:37)
[2023-06-19] MEDS: ENOXAPARIN SOD 40 MG/0.4 ML SYRINGE SC SCH (09:37)
[2023-06-19 10:15] VITALS: O2SAT 95
== END 2023-06-19 13:10 | disposition home health service (06) | DRG 137 ==
LOC: ER 09:46 → TELE 14:16 → TELE-WESTW 23:45 → WEST WING 06-13 15:13
PROVIDERS: ADMIT Nurse Practitioner Family; ATTEND Nurse Practitioner Acute Care
PROC: XW033E5 Introduction of Remdesivir Anti-infective into Peripheral Vein, Percutaneous Approach, New Technology Group 5 (ICD-10-PCS; principal; 2023-06-12)
DX: U07.1 COVID-19 (principal); J96.21 Acute and chronic respiratory failure with hypoxia; J10.08 Influenza due to other identified influenza virus with other specified pneumonia; I27.20 Pulmonary hypertension, unspecified; M06.9 Rheumatoid arthritis, unspecified; E66.01 Morbid (severe) obesity due to excess calories; E78.5 Hyperlipidemia, unspecified; I10 Essential (primary) hypertension; Z68.33 Body mass index [BMI] 33.0-33.9, adult; D64.9 Anemia, unspecified; I25.10 Atherosclerotic heart disease of native coronary artery without angina pectoris; J44.0 Chronic obstructive pulmonary disease with (acute) lower respiratory infection; M10.9 Gout, unspecified; Z82.49 Family history of ischemic heart disease and other diseases of the circulatory system; Z99.81 Dependence on supplemental oxygen
CPT/HCPCS: 36415; 71045; 71275; 80048; 80053; 80061; 81001; 82306; 82728; 83036; 83605; 83615; 83735; 83880; 84443; 84484; 85025; 85379; 86141; 87426; 87804; 93005; 94640; 96374; 96375; 97163; 99291; G0378; G9035; J1100; J3490

== ENCOUNTER → 2023-08-10 | Outpatient (CLI) | payer MEDICARE, MEDICAID ==
[~2023-08-10] MED LIST changes: +DOXY-448 PO; +GUAI-41 PO
[2023-08-10 12:03] LABS: Alanine Aminotransferase 10 U/L (7-40); Albumin 4.4 g/dL (3.2-4.8); Alkaline Phosphatase 114 U/L (46-116); Anion Gap 6 (5-15); Aspartate Aminotransferase 19 U/L (13-40); Blood Urea Nitrogen 13 mg/dL (9-23); Carbon Dioxide 32 mmol/L (20-30); Chloride 102 mmol/L (98-107); Glucose 103 mg/dL (74-106); Sodium 140 mmol/L (136-145)
[2023-08-10 12:04] LABS: Total Protein 7.4 g/dL (5.7-8.2)
[2023-08-10 12:49] LABS: Bilirubin, Total 0.4 mg/dL (0.2-1.0)
== END | disposition home or self-care (01) ==
LOC: LAB 10:22
PROVIDERS: ATTEND Student in an Organized Health Care Education/Training Program
DX: I10 Essential (primary) hypertension (principal)
CPT/HCPCS: 36415; 80053

== ENCOUNTER 2024-01-01 07:11 | Day surgery (SDC) | payer MEDICARE, MEDICAID ==
[2024-01-01] VITALS (8 sets, daily range): BP systolic 96–174; BP diastolic 32–62; PULSE 48–62; RESP 12–17; O2SAT 93–100
[~2024-01-01] VITALS: Ht 144.8 cm; Wt 65.3 kg
[~2024-01-01 07:11] MED LIST changes: -AMLO1TAB23 PO; -ASCO500T6 PO; -ASPI81CH43; -ATOR-47 PO; -AZIT500T66 PO; -BECL80AE9; -CLON0.1T PO; +DORZ2SOL18 EACHEYE; -DOXY-448 PO; +FLUT1AER17 IN; -FLUT1AER17 INH; -GUAI-41 PO; +LATA0.008 EACHEYE; -LOSA50TA46 PO; +SILD20TA12 OR; -SILD20TA12 PO
[2024-01-01] MEDS ORDERED: IODIXANOL 320MG/ML 100ML BTL IV ONE (07:52)
[2024-01-01] MEDS ORDERED: HEPARIN IN NS 1000Units/500mL 1,500 ML ONE (07:52)
[2024-01-01 08:29] LABS: Basophils # (auto) 0.1 10 ^3/uL (0-0.2); Basophils % (auto) 0.6 % (0.0-2.0); Eosinophils # (auto) 0.1 10 ^3/uL (0-0.8); Eosinophils % (auto) 0.7 % (0.0-7.0); Hematocrit 39.4 % (36.0-46.0); Hemoglobin 12.7 g/dL (12.2-16.2); Lymphocytes # (auto) 1.6 10 ^3/uL (0.4-5.4); Lymphocytes % (auto) 18.8 % (10.0-50.0); Mean Corpuscular Hemoglobin 27.3 pg (28.0-32.0); Mean Corpuscular Hgb Conc. 32.2 g/dL (32.0-36.0); Mean Corpuscular Volume 84.6 fL (80.0-100.0); Monocytes # (auto) 0.8 10 ^3/uL (0-1.3); Monocytes % (auto) 9.8 % (0.0-12.0); Neutrophils # (auto) 5.9 10 ^3/uL (1.6-8.6); Neutrophils % (auto) 70.1 % (37.0-80.0); Red Blood Cells 4.66 10^6/uL (4.0-5.20); Red Cell Distribution Width 16.8 % (11.8-14.3); White Blood Cell 8.5 10^3/uL (4.4-10.8)
[2024-01-01] MEDS ORDERED: ANGIOMAX 250 MG VIAL IV ONE (08:58)
[2024-01-01] MEDS ORDERED: fentaNYL CITRATE 100 MCG/2 ML VL ONE (08:59)
[2024-01-01] MEDS ORDERED: MIDAZOLAM HCL 2MG/2ML 2ml VIAL (1mg/ml) ONE ×2 (09:00→09:03)
[2024-01-01] MEDS ORDERED: SODIUM CHL 0.9% 0 ML ONE (09:00)
[2024-01-01] MEDS ORDERED: LIDOCAINE 2%HCL (LOCAL ANESTH.) INJ 20ML MDV ONE (09:06)
[2024-01-01 09:11] LABS: Alanine Aminotransferase 11 U/L (7-40); Albumin 4.2 g/dL (3.2-4.8); Alkaline Phosphatase 117 U/L (46-116); Anion Gap 6 (5-15); Aspartate Aminotransferase 14 U/L (13-40); BUN/Creatinine Ratio 17.7 (10.0-20.0); Bilirubin, Total 0.7 mg/dL (0.2-1.0); Blood Urea Nitrogen 14 mg/dL (9-23); Calcium 9.5 mg/dL (8.7-10.4); Carbon Dioxide 31 mmol/L (20-30); Chloride 104 mmol/L (98-107); Glucose 110 mg/dL (74-106); Potassium 3.4 mmol/L (3.5-5.1); Sodium 141 mmol/L (136-145); Total Protein 7.1 g/dL (5.7-8.2)
[2024-01-01 09:15] LABS: INR 1.07 (0.9-1.15); Partial Thromboplastin Time 28.3 SEC (24.5-34.5); Prothrombin Time 11.3 sec (9.3-11.8)
[2024-01-01] MEDS ORDERED: HEPARIN SODIUM (PORCINE) 5000 UNITS/ML 1ML VIAL ONE (09:35)
== END 2024-01-01 13:50 | disposition home or self-care (01) ==
LOC: CATH 07:11
PROVIDERS: ATTEND Student in an Organized Health Care Education/Training Program
DX: I27.20 Pulmonary hypertension, unspecified (principal); R06.02 Shortness of breath; I11.0 Hypertensive heart disease with heart failure; I50.30 Unspecified diastolic (congestive) heart failure; E78.5 Hyperlipidemia, unspecified; M06.9 Rheumatoid arthritis, unspecified
CPT/HCPCS: 36415; 80053; 85025; 85610; 85730; 93460; C1760; C1769; C1894; J1644; J2250; J3010; J7030; Q9967; 99152; 99153

== ENCOUNTER 2024-03-02 14:31 | Emergency (ER) | payer MEDICARE, MEDICAID ==
[~2024-03-02] VITALS: Ht 144.8 cm; Wt 66.7 kg
[2024-03-02] MEDS ORDERED: AMOX875T4 PO (17:03)
[2024-03-02] MEDS ORDERED: PRED20TA2 PO (17:03)
[2024-03-02] MEDS: IPRATROPIUM BROM 0.5 MG/2.5ML INH SOL NEB ONE (17:21)
[2024-03-02] MEDS: ALBUTEROL SULF 2.5 MG/0.5ML(0.5%) NEB SOLN NEB ONE (17:21)
[2024-03-02 17:56] VITALS: BP 151/64; PULSE 69; RESP 16; O2SAT 95
== END 2024-03-02 19:09 | disposition home or self-care (01) ==
LOC: ER 14:31
DX: J44.1 Chronic obstructive pulmonary disease with (acute) exacerbation (principal); I11.9 Hypertensive heart disease without heart failure; M19.90 Unspecified osteoarthritis, unspecified site; E78.5 Hyperlipidemia, unspecified; Z90.89 Acquired absence of other organs; Z98.51 Tubal ligation status; Z87.891 Personal history of nicotine dependence
CPT/HCPCS: 71046; 94640

== ENCOUNTER 2024-03-07 16:59 | Emergency (ER) | payer MEDICARE, MEDICAID ==
[~2024-03-07] VITALS: Ht 157.5 cm; Wt 50.0 kg
[~2024-03-07 16:59] MED LIST changes: +AMOX875T4 PO; +PRED20TA2 PO
[2024-03-07 17:45] VITALS: BP 108/72; PULSE 16; RESP 18; O2SAT 98
[2024-03-07] MEDS ORDERED: CEPH500C PO (18:38)
[2024-03-07] MEDS ORDERED: DIP005TP EX (18:40)
[2024-03-07] MEDS: DexAMETHasone SOD PHOS 10MG/1ML VIAL INJ IM ONE (18:44)
== END 2024-03-07 18:47 | disposition home or self-care (01) ==
LOC: ER 16:59
DX: S70.361A Insect bite (nonvenomous), right thigh, initial encounter (principal); L08.9 Local infection of the skin and subcutaneous tissue, unspecified; I10 Essential (primary) hypertension; J44.1 Chronic obstructive pulmonary disease with (acute) exacerbation; Z79.899 Other long term (current) drug therapy; Z88.1 Allergy status to other antibiotic agents; Z90.89 Acquired absence of other organs; Z98.51 Tubal ligation status; Z87.891 Personal history of nicotine dependence; W57.XXXA Bitten or stung by nonvenomous insect and other nonvenomous arthropods, initial encounter; Y93.89 Activity, other specified; Y92.89 Other specified places as the place of occurrence of the external cause; Y99.8 Other external cause status
CPT/HCPCS: 96372; 99283; J1100

== ENCOUNTER 2024-04-10 20:42 | Inpatient (IN) | payer MEDICARE, MEDICAID ==
[~2024-04-10] VITALS: Ht 142.2 cm; Wt 64.9 kg
[~2024-04-10 20:42] MED LIST changes: +CEPH500C PO; +DIP005TP EX; -SILD20TA12 OR; +SILD20TA12 PO
[2024-04-10 21:37] LABS: Basophils # (auto) 0.1 10 ^3/uL (0-0.2); Basophils % (auto) 0.9 % (0.0-2.0); Eosinophils # (auto) 0.1 10 ^3/uL (0-0.8); Eosinophils % (auto) 0.7 % (0.0-7.0); Hematocrit 48.1 % (36.0-46.0); Hemoglobin 15.7 g/dL (12.2-16.2); Lymphocytes # (auto) 2.3 10 ^3/uL (0.4-5.4); Lymphocytes % (auto) 21.4 % (10.0-50.0); Mean Corpuscular Hemoglobin 28.4 pg (28.0-32.0); Mean Corpuscular Hgb Conc. 32.8 g/dL (32.0-36.0); Mean Corpuscular Volume 86.8 fL (80.0-100.0); Monocytes # (auto) 1.3 10 ^3/uL (0-1.3); Monocytes % (auto) 12.1 % (0.0-12.0); Neutrophils # (auto) 6.9 10 ^3/uL (1.6-8.6); Neutrophils % (auto) 64.9 % (37.0-80.0); Platelet Count (auto) 212 10^3/uL (140-450); Red Blood Cells 5.54 10^6/uL (4.0-5.20); Red Cell Distribution Width 15.8 % (11.8-14.3); White Blood Cell 10.6 10^3/uL (4.4-10.8)
[2024-04-10 21:39] LABS: Chloride 98 mmol/L (98-107); Potassium 3.9 mmol/L (3.5-5.1); Sodium 140 mmol/L (136-145)
[2024-04-10 21:40] LABS: Anion Gap 7 (5-15); Calcium 10.4 mg/dL (8.7-10.4); Carbon Dioxide 35 mmol/L (20-31)
[2024-04-10 21:45] LABS: BUN/Creatinine Ratio 16.1 (10.0-20.0); Blood Urea Nitrogen 14 mg/dL (9-23); Glucose 92 mg/dL (74-106)
[2024-04-10 23:39] LABS: Urine Bacteria None Seen /hpf (None Seen)
[2024-04-10] MEDS: cloNIDine HCL 0.1 MG TAB PO ONE (23:52)
[2024-04-10 23:57] LABS: Urine Blood Negative /uL (Negative); Urine Clarity Clear (Clear); Urine Color Yellow (Yellow); Urine Protein, UAD 1+ (Negative); Urine Specific Gravity 1.017 (1.001-1.035); Urine Urobilinogen Normal (Negative); Urine WBC 2 /hpf (0 - 5); Urine pH 6.5 (5.0-9.0)
[2024-04-11] VITALS (12 sets, daily range): BP systolic 101–163; BP diastolic 53–71; PULSE 62–78; RESP 16–20; TEMP 97.6–98.4; O2SAT 80–99
--- NOTE | 2024-04-11 00:09 | ED.PDOC ---
HPI Comments This patient is a pleasant 73-year-old female who was brought to the ED due to complaints of blood pressure concerns over the past few days. Patient has had blood pressure that has been accelerated and throughout the days. Patient has a history of hypertension and states that her blood pressure is not always well controlled. Patient denies any fever nausea or vomiting. Patient was hypertensive on arrival. Chief Complaint: High Blood Pressure Time Seen by MD: 20:50 Primary Care Provider: UNKNOWN Reviewed Notes: Nurses Notes Allergies: Coded Allergies: Ceftriaxone (Verified Allergy, Intermediate, 12/31/23) RASH COUGH Levofloxacin (Verified Allergy, Unknown, 12/31/23) Home Meds Active Scripts Betamethasone Dipropionate (Betamethasone Dipropionat) 0.05 % Cre, 1 GM EX BID for 7 Days, #15 GRAMS Thin layer to the affected areas twice daily x7 days. Prov:RAY UNGER [facility] 03/07/24 Cephalexin Monohydrate (Cephalexin) 500 Mg Cap, 1 CAP PO BID for 5 Days, #10 CAP Prov:RAY UNGER [facility] 03/07/24 Prednisone (Prednisone) 20 Mg Tab, 20 MG PO DAILY for 5 Days, #5 MG Prov:ALPESH MARIN [facility] 03/02/24 Amoxicillin & Pot Clavulanate (Amoxicillin/Potassium Cla) 875 Mg Tab, 1 TAB PO BID for 7 Days, #14 TAB Prov:ALPESH MARIN [facility] 03/02/24 Albuterol Sulfate (VENTOLIN MDI) 90 Mcg Ih, 90 MCG IN Q6HR, #1 INH Prov:XIOMARA MARKS MD 09/28/22 Reported Medications Latanoprost (LATANOPROST) 0.005 % Viktoriya, 1 DROP EACHEYE QPM for GLAUCOMA, #7.5 ML 3 Refills 12/31/23 Dorzolamide-Timolol (Dorzolamide Hcl/Timolol M) 1 Ml Viktoriya, 1 DROP EACHEYE BID, #10 ML 6 Refills 12/31/23 Aviuktanuaq-Uojfzhsnfypr-Uvklj (Trelegy Ellipta 200-62.5-25 Mcg/INH) 1 Aer Aer, 1 AER IN DAILY for COPD, AER 12/31/23 Sildenafil Citrate (SILDENAFIL CITRATE) 20 Mg Tab, 20 MG OR TID for PUL. HTN, TAB 12/31/23 Prednisone (Prednisone) 10 Mg Tab, 1 TAB PO DAILY 03/17/23 Furosemide (Furosemide) 40 Mg Tab, 1 TAB PO DAILY 07/31/22 Carvedilol (Carvedilol) 25 Mg Tab, 1 TAB PO BID 07/31/22 Ferrous Sulfate (Ferosul) 325 Mg Tab, 1 TAB PO BID 07/31/22 Information Source: Patient, Friend Mode of Arrival: Ambulatory Severity: Moderate Timing: Days Duration: Intermittent Prehospital treatment: Treatment Onset: At Rest Cardiac Risk Factors: HTN PE Risk Factors: None History of: None Associated Signs and Symptoms: None Past Medical History PAST MEDICAL HISTORY: Anemia, Angina, Arthritis, Asthma, CAD, Gout, High Lipids, HTN, TX Surgical History: Tonsillectomy, Tubal Ligation DISABILITY AIDE History: No Pertinent DISABILITY AIDE History Family History Family History: Reviewed,noncontributory to illness, Family hx of heart mervat Social History Smoker: Non-Smoker, Quit Greater Than 1 Year Alcohol: Denies ETOH Use Drugs: Denies Drug Use Lives In: Home Constitutional: denies: chills, diaphoresis, fatigue, fever, malaise, sweats, weakness, others EENTM: denies: blurred vision, double vision, ear bleeding, ear discharge, ear drainage, ear pain, ear ringing, eye pain, eye redness, hearing loss, mouth pain, mouth swelling, nasal discharge, nose bleeding, nose congestion, nose pain, photophobia, tearing, throat pain, throat swelling, voice changes, others Respiratory: denies: cough, hemoptysis, orthopnea, SOB at rest, shortness of breath, SOB with excertion, stridor, wheezing, others Cardiovascular: denies: chest pain, dizzy spells, diaphoresis, Dyspnea on exertion, edema, irregular heart beat, left arm pain, lightheadedness, palpitations, PND, syncope, others Gastrointestinal: denies: abdomen distended, abdominal pain, blood streaked bowels, constipated, diarrhea, dysphagia, difficulty swallowing, hematemesis, melena, nausea, poor appetite, poor fluid intake, rectal bleeding, rectal pain, vomiting, others Genitourinary: denies: abnormal vagina bleeding, burning, dyspareunia, dysuria, flank pain, frequency, hematuria, incontinence, pain, , vagina discharge, urgency, others Neurological: denies: dizziness, fainting, headache, left sided numbness, left sided weakness, numbness, paresthesia, pre-existing deficit, right sided numbness, right sided weakness, seizure, speech problems, tingling, tremors, we akness, others Musculoskeletal: denies: back pain, gout, joint pain, joint swelling, muscle pain, muscle stiffness, neck pain, others Integumetry: denies: bruises, change in color, change in hair/nails, dryness, laceration, lesions, lumps, rash, wounds, others Allergic/Immunocompromised: denies: Difficulty Healing, Frequent Infections, Hives, Itching, others Hematologic/Lymphatic: denies: anemia, blood clots, easy bleeding, easy bruising, swollen glands, others Endocrine: denies: excessive hunger, excessive sweating, excessive thirst, excessive urination, flushing, intolerance to cold, intolerance to heat, unexplained weight gain, unexplained weight loss, others Psychiatric: denies: anxiety, bipolar disorder, depression, hopeless, panic disorder, schizophrenia, sleepless, suicidal, others Physical Exam General Appearance: Mild Distress (Patient appears to be in mild distress due to anxiety rather than any physiological concerns.), Normal HEENT: Normal ENT Inspection, Pharynx Normal, TMs Normal Neck: Full Range of Motion, Non-Tender, Normal, Normal Inspection Respiratory: Chest Non-Tender, Lungs Clear, No Accessory Muscle Use, No Respiratory Distress, Normal Breath Sounds Cardiovascular: No Edema, No JVD, No Murmur, No Gallop, Normal Peripheral Pulses, Regular Rate/Rhythm, Other (Unremarkable cardiac evaluation) Breast Exam: Deferred Gastrointestinal: No Organomegaly, Non Tender, No Pulsatile Mass, Normal Bowel Sounds, Soft Genitalia: Deferred Pelvic: Deferred Rectal: Deferred Extremities: No calf tenderness, Normal capillary refill, Normal inspection, Normal range of motion, Non-tender, No pedal edema Neurologic: Alert, Normal Affect, Normal Mood Cerebellar Function: Normal Reflexes: Normal Skin: Dry, Normal Color, Warm Lymphatic: No Adenopathy Was a procedure done? Was a procedure done?: No CP Differential Dx Differential Diagnosis: Angina, Anxiety / Panic Attack, Atrial Dysrhythmia, AV Block 1st Degree, TX Differential Diagnosis: CHF, HTN Essential X-Ray, Labs, Meds, VS Vital Signs Date Time Temp Pulse Resp B/P (MAP) Pulse Ox O2 Delivery O2 Flow Rate FiO2 04/10/24 23:52 101/71 04/10/24 23:48 97.7 76 18 101/71 (81) 99 97.7 04/10/24 21:03 76 04/10/24 20:47 97.7 75 16 178/85 (116) 92 Lab Test 04/10/24 21:17 04/10/24 21:10 04/10/24 21:04 Range/Units B-Type Natriuretic Peptide 112.09 0-100 pg/mL White Blood Count 10.6 4.4-10.8 10^3/uL Red Blood Count 5.54 H 4.0-5.20 10^6/uL Hemoglobin 15.7 12.2-16.2 g/dL Hematocrit 48.1 H 36.0-46.0 % Mean Corpuscular Volume 86.8 80.0-100.0 fL Mean Corpuscular Hemoglobin 28.4 28.0-32.0 pg Mean Corpuscular Hemoglobin Concent 32.8 32.0-36.0 g/dL Red Cell Distribution Width 15.8 H 11.8-14.3 % Platelet Count 212 140-450 10^3/uL Mean Platelet Volume 8.9 6.9-10.8 fL Neutrophils (%) (Auto) 64.9 37.0-80.0 % Lymphocytes (%) (Auto) 21.4 10.0-50.0 % Monocytes (%) (Auto) 12.1 H 0.0-12.0 % Eosinophils (%) (Auto) 0.7 0.0-7.0 % Basophils (%) (Auto) 0.9 0.0-2.0 % Neutrophils # (Auto) 6.9 1.6-8.6 10 ^3/uL Lymphocytes # (Auto) 2.3 0.4-5.4 10 ^3/uL Monocytes # (Auto) 1.3 0-1.3 10 ^3/uL Eosinophils # (Auto) 0.1 0-0.8 10 ^3/uL Basophils # (Auto) 0.1 0-0.2 10 ^3/uL Nucleated Red Blood Cells 0.0 % Sodium Level 140 136-145 mmol/L Potassium Level 3.9 3.5-5.1 mmol/L Chloride Level 98 98-107 mmol/L Carbon Dioxide Level 35 H 20-31 mmol/L Anion Gap 7 5-15 Blood Urea Nitrogen 14 9-23 mg/dL Creatinine 0.87 0.550-1.02 mg/dL Glomerular Filtration Rate Calc 71 >90 mL/min BUN/Creatinine Ratio 16.1 10.0-20.0 Serum Glucose 92 74-106 mg/dL Calcium Level 10.4 8.7-10.4 mg/dL Troponin I High Sensitivity 12 </=34 ng/L Urine Color Yellow Yellow Urine Clarity Clear Clear Urine pH 6.5 5.0-9.0 Urine Specific [place] 1.017 1.001-1.035 Urine Protein 1+ H Negative Urine Ketones Negative Negative Urine Blood Negative Negative /uL Urine Nitrite Negative Negative Urine Bilirubin Negative Negative Urine Urobilinogen Normal Negative mg/dL Urine Leukocyte Esterase 2+ Negative /uL Urine RBC 1 0 - 4 /hpf Urine WBC 2 0 - 5 /hpf Urine Squamous Epithelial Cells Few <5 /hpf Urine Bacteria None seen None Seen /hpf Urine Glucose Normal Normal mg/dL X-Ray, Labs, Meds, VS Comment All studies performed the ED today were evaluated by me personally. Laboratories revealed a mild BNP elevation but other than that were relatively unremarkable. Patient has EKG revealed a sinus rhythm with ventricular bigeminy as well as atypical right bundle branch block. Rate was 76 with a HI interval of 196 and a QT interval of 424. Patient denies any history of by Keshawn and along with her elevated blood pressure concerns for the past few days. Patient will be admitted for an acute coronary syndrome and get a cardiac evaluation tomorrow. Time of 1ST Reevaluation: 00:08 Reevaluation 1ST: Improved Consultation: PCP, Cardiology Patient Education/Counseling: Diagnosis, Treatment Family Education/Counseling: Diagnosis, Treatment Departure 1 Departure Time of Disposition: 00:08 Impression: Primary Impression: Acute coronary syndrome Disposition: 09 ADMITTED INPATIENT Condition: Stable Discharged With: Self Critical Care Note Critical Care Time?: No Stability Stability form required: No Heart Score Heart Score: Heart Score Response (Comments) Value History Slightly Suspicious 0 EKG Repolarization Disturb 1 Age >65 2 Risk Factors 1 or 2 risk factors 1 Troponin Normal limit 0 Total 4 AMANDA DIAMOND PAC Apr 11, 2024 00:09
[2024-04-11] MEDS ORDERED: ACETAMINOPHEN 325 MG TAB PO PRN (00:30)
[2024-04-11] MEDS ORDERED: hydrALAZINE HCL 20 MG/ML VL IV PRN (00:30)
[2024-04-11] MEDS ORDERED: NITROGLYCERIN 0.4 MG SL TAB SL PRN (00:30)
[2024-04-11] MEDS ORDERED: ONDANSETRON HCL 4 MG/2 ML VIAL IV PRN (00:30)
[2024-04-11] MEDS ORDERED: MORPHINE SULFATE INJ 2 MG/ml SYRG IV PRN ×2 (00:30)
--- NOTE | 2024-04-11 00:40 | DVHHPRES ---
History of Present Illness Resident Creating Document: CHERYL BAI RESIDENT History of Present Illness Piper Recinos is a 73 years old female with a PMH of asthma, COPD, rheumatoid arthritis, HTN, type 2 DM, CHF presented to the ED with the chief complaints of elevated blood pressure for past few days. Patient reported she has been monitoring her blood pressure every day, yesterday morning she checked her blood pressure which was 175/95 and then she rechecked which showed 187/101, having headaches, mild chest discomfort which is pressure-like pain substernal, nonradiating, nothing make it better words, mild dizziness which prompted her to visit ED. on my assessment patient denies fever, nausea, vomiting, palpitations, diaphoresis, and other associated symptoms. Patient has a history of hypertension and states that her blood pressure is not always well controlled. Past Medical History asthma, COPD on home oxygen 2-3 L, rheumatoid arthritis, HTN, type 2 DM, CHF Past Surgical History Both knee replacement surgeries, right eye surgery Family History: None Past Social History Lives alone. Denies smoking, alcohol and other drug abuse Review of Systems Constitutional: Yes: Other (Headache); No: Fever, Chills, Sweats, Weakness, Malaise Eyes: No: Pain, Vision change, Conjunctivae inflammation, Eyelid inflammation, Other, Redness ENT: No: Ear pain, Ear discharge, Nose pain, Nose discharge, Nose congestion, Mouth pain, Mouth swelling, Throat pain, Throat swelling, Other Respiratory: No: Cough, Dry, Shortness of breath, SOB with excertion, Wheezing, Hemoptysis, Pleuritic Pain, Sputum, Wheezing, Other Cardiovascular: Chest Pain Gastrointestinal: No: Nausea, Vomiting, Abdominal Pain, Diarrhea, Constipation, Melena, Hematochezia, Other Genitourinary: No Dysuria, No Frequency, No Incontinence, No Hematuria, No Retention, No Other Musculoskeletal: No: other, neck pain, shoulder pain, arm pain, back pain, hand pain, leg pain, foot pain Skin: No: Rash, Lesions, Jaundice, Bruising, Other Neurological: No: Weakness, Numbness, Incoordination, Change in speech, Confusion, Seizures, Other Allergies: Coded Allergies: Ceftriaxone (Verified Allergy, Intermediate, 12/31/23) RASH COUGH Levofloxacin (Verified Allergy, Unknown, 12/31/23) Medications Current Medications Medications Dose Ordered Sig/Kristen Route Start Time Stop Time Status Last Admin Dose Admin Sodium Chloride 10 ml Q8HR IV 04/11/24 06:00 Ondansetron HCl 4 mg Q4HP PRN IV 04/11/24 00:30 UNV Acetaminophen 650 mg Q6HP PRN PO 04/11/24 00:30 UNV Morphine Sulfate 2 mg Q4HPRN PRN IV 04/11/24 00:30 UNV Enoxaparin Sodium 40 mg DAILY SC 04/11/24 00:30 UNV Nitroglycerin 0.4 mg Q5MINP PRN SL 04/11/24 00:30 UNV Morphine Sulfate 2 mg Q30M PRN IV 04/11/24 00:30 UNV Albuterol 90 mcg Q6HR IN 04/11/24 06:00 UNV Furosemide 40 mg DAILY PO 04/11/24 10:00 UNV Latanoprost 1 drop QPM EACHEYE 04/11/24 18:00 UNV Patient Own Medication 1 tab BID PO 04/11/24 10:00 UNV Exam Vital Signs Vital Signs Date Time Temp Pulse Resp B/P (MAP) Pulse Ox O2 Delivery O2 Flow Rate FiO2 04/11/24 00:03 Nasal Cannula* 3 32 04/10/24 23:52 101/71 04/10/24 23:48 97.7 76 18 99 97.7 Exam Pt is lying on bed General Appearance: Alert, Oriented X3, Cooperative, Not in acute distress HEENT: Atraumatic, Mucous membranes moist/pink Respiratory: Rales and wheezing bilateral lung tellez Cardiovascular: Regular rate, Normal S1, Normal S2, No murmurs Abdominal: Active bowel sounds, Soft, no distention, no tenderness Extremities: Trace edema, Normal pulses, No tenderness/swelling Skin: No Significant rash, except past surgical scars Neuro: Normal speech, sensorimotor deficits none Psych/Mental Status: Mental status NL, Mood NL Nurse was there as sharperone during examination Labs/Xrays Labs Test 04/10/24 21:17 04/10/24 21:10 04/10/24 21:04 Range/Units B-Type Natriuretic Peptide 112.09 0-100 pg/mL White Blood Count 10.6 4.4-10.8 10^3/uL Red Blood Count 5.54 H 4.0-5.20 10^6/uL Hemoglobin 15.7 12.2-16.2 g/dL Hematocrit 48.1 H 36.0-46.0 % Mean Corpuscular Volume 86.8 80.0-100.0 fL Mean Corpuscular Hemoglobin 28.4 28.0-32.0 pg Mean Corpuscular Hemoglobin Concent 32.8 32.0-36.0 g/dL Red Cell Distribution Width 15.8 H 11.8-14.3 % Platelet Count 212 140-450 10^3/uL Mean Platelet Volume 8.9 6.9-10.8 fL Neutrophils (%) (Auto) 64.9 37.0-80.0 % Lymphocytes (%) (Auto) 21.4 10.0-50.0 % Monocytes (%) (Auto) 12.1 H 0.0-12.0 % Eosinophils (%) (Auto) 0.7 0.0-7.0 % Basophils (%) (Auto) 0.9 0.0-2.0 % Neutrophils # (Auto) 6.9 1.6-8.6 10 ^3/uL Lymphocytes # (Auto) 2.3 0.4-5.4 10 ^3/uL Monocytes # (Auto) 1.3 0-1.3 10 ^3/uL Eosinophils # (Auto) 0.1 0-0.8 10 ^3/uL Basophils # (Auto) 0.1 0-0.2 10 ^3/uL Nucleated Red Blood Cells 0.0 % Sodium Level 140 136-145 mmol/L Potassium Level 3.9 3.5-5.1 mmol/L Chloride Level 98 98-107 mmol/L Carbon Dioxide Level 35 H 20-31 mmol/L Anion Gap 7 5-15 Blood Urea Nitrogen 14 9-23 mg/dL Creatinine 0.87 0.550-1.02 mg/dL Glomerular Filtration Rate Calc 71 >90 mL/min BUN/Creatinine Ratio 16.1 10.0-20.0 Serum Glucose 92 74-106 mg/dL Calcium Level 10.4 8.7-10.4 mg/dL Troponin I High Sensitivity 12 </=34 ng/L Urine Color Yellow Yellow Urine Clarity Clear Clear Urine pH 6.5 5.0-9.0 Urine Specific [place] 1.017 1.001-1.035 Urine Protein 1+ H Negative Urine Ketones Negative Negative Urine Blood Negative Negative /uL Urine Nitrite Negative Negative Urine Bilirubin Negative Negative Urine Urobilinogen Normal Negative mg/dL Urine Leukocyte Esterase 2+ Negative /uL Urine RBC 1 0 - 4 /hpf Urine WBC 2 0 - 5 /hpf Urine Squamous Epithelial Cells Few <5 /hpf Urine Bacteria None seen None Seen /hpf Urine Glucose Normal Normal mg/dL Assessment/Plan Assessment/Plan # chest pain rule out ACS -reviewed EKG -troponins negative -ordered chest pain protocol -monitor # hypertensive urgency -closely monitor blood pressure -initially given clonidine 0.2mg -resumed home meds -IV hydralazine 10 mg p.r.n. if blood pressure is more than 160 -ordered echocardiogram, pending -cardiology consultation if needed # COPD and asthma not in exacerbation -continue breathing treatments # CHF not in exacerbation -continue Lasix as directed Lovenox No GI PPX Cardiac diet for now Reconciled home meds Goals of care discussed with the patient for more than 27 minutes: Full code status Case management discussed with Dr. Garduno, patient and nurse Plan discussed with: Patient My Orders Orders - CHERYL BAI RESIDENT Procedure Category Date Status Time Admit ADMIT 04/11/24 Transmitted 00:27 Allergies SOPHIE 04/11/24 In Process 00:27 Code Status CODE 04/11/24 Transmitted 00:27 2 Gm Sodium Diet DIET 04/11/24 Transmitted Breakfast Sodium Chloride Lock PHA 04/11/24 In Process (Saline Lock Ns) 06:00 Ondansetron Hcl PHA 04/11/24 In Process (Zofran) 00:30 Complete Blood Count LAB 04/11/24 Logged 04:00 Comprehensive LAB 04/11/24 Logged Metabolic Panel 04:00 Cardiac DIET 04/11/24 Transmitted Diet-2gna,Lofat,Lochol Breakfast Echo 2d Mode Cardiac US 04/11/24 Logged DOP 00:27 Acetaminophen Tablet PHA 04/11/24 In Process (Tylenol Tablet) 00:30 Morphine Sulfate PHA 04/11/24 In Process Injection 00:30 Enoxaparin Sodium PHA 04/11/24 In Process (Lovenox) 00:30 Nitroglycerin PHA 04/11/24 In Process Sublingual (Ntrostat 00:30 Morphine Sulfate PHA 04/11/24 In Process Injection 00:30 Oxygen By Nasal RT 04/11/24 Transmitted Cannula 00:27 Stat Ekg For Chest SOPHIE 04/11/24 In Process Pain 00:27 Notify Of Changes [facility] 04/11/24 In Process From Base 00:27 Pet Care Attendant For [facility] 04/11/24 In Process 24 Hours 00:27 Emergency Dysrhythmia [facility] 04/11/24 In Process Protocol 00:27 Rhythm Strips Once [facility] 04/11/24 In Process Every Shift 00:27 Albuterol Inhaler PHA 04/11/24 In Process (Ventolin Hfa) 06:00 Furosemide Tablet PHA 04/11/24 In Process (Lasix Tablet) 10:00 Latanoprost (Xalatan) PHA 04/11/24 In Process 18:00 Hydralazine Injection PHA 04/11/24 In Process (Apresoline Inject 00:30 Carvedilol Tablet PHA 04/11/24 In Process (Coreg Tablet) 10:00 Date of Service: Apr 10, 2024 Billing Provider: BELL GARDUNO MD Common Visit Codes: 64555-[id number] INP/OBS CARE (HIGH) Secondary Visit Codes: 27616-[id number] CARE PLAN 30 MINUTES CHERYL BAI RESIDENT Apr 11, 2024 00:40 BELL GARDUNO MD Apr 11, 2024 14:59
[2024-04-11] MEDS: ENOXAPARIN SOD 40 MG/0.4 ML SYRINGE SC SCH (01:52)
[2024-04-11] MEDS ORDERED: ALBUTEROL SULF HFA 90MCG INH 200DOSE IN SCH (06:00)
[2024-04-11] MEDS: SODIUM CHLOR 0.9% PF (SALINE LOCK) 10ML VIAL/SYR IV SCH (06:07)
--- NOTE | 2024-04-11 06:28 | ECG ---
[facility] Test Date: 2024-04-10 Test Time: 21:03:29 Pat Name: JOSE MCCULLOUGH Department: er Room: 0246T B Gender: F [employer]: kyra : 1950 Requested By: AMANDA DIAMOND Order Number: [id number] Reading MD: Lamberto Brink Measurements Intervals [place] Rate: 76 P: -20 VA: 196 QRS: 70 QRSD: 124 T: 47 QT: 424 QTc: 477 Interpretive Statements Sinus rhythm Ventricular bigeminy IVCD, consider atypical RBBB Electronically Signed On 04-17-2024 13:19:31 PST by Lamberto Brink Please click the below link to view image of tracing.
[2024-04-11 09:20] LABS: Basophils # (auto) 0 10 ^3/uL (0-0.2); Basophils % (auto) 0.5 % (0.0-2.0); Eosinophils # (auto) 0.1 10 ^3/uL (0-0.8); Eosinophils % (auto) 0.8 % (0.0-7.0); Hematocrit 43.9 % (36.0-46.0); Hemoglobin 14.5 g/dL (12.2-16.2); Lymphocytes # (auto) 1.9 10 ^3/uL (0.4-5.4); Lymphocytes % (auto) 19.8 % (10.0-50.0); Mean Corpuscular Hemoglobin 28.6 pg (28.0-32.0); Mean Corpuscular Volume 86.8 fL (80.0-100.0); Monocytes # (auto) 0.9 10 ^3/uL (0-1.3); Monocytes % (auto) 9.9 % (0.0-12.0); Neutrophils # (auto) 6.6 10 ^3/uL (1.6-8.6); Nucleated Red Blood Cells % 0.1 %; Platelet Count (auto) 228 10^3/uL (140-450); Red Blood Cells 5.06 10^6/uL (4.0-5.20); Red Cell Distribution Width 15.4 % (11.8-14.3); White Blood Cell 9.6 10^3/uL (4.4-10.8)
[2024-04-11 09:29] LABS: Alanine Aminotransferase 13 U/L (7-40); Alkaline Phosphatase 107 U/L (46-116); Blood Alcohol < 3.0 mg/dL (<10); Calcium 9.9 mg/dL (8.7-10.4); Carbon Dioxide 34 mmol/L (20-31); Chloride 100 mmol/L (98-107); Glucose 111 mg/dL (74-106); Potassium 3.8 mmol/L (3.5-5.1); Sodium 142 mmol/L (136-145)
[2024-04-11 09:30] LABS: Albumin 4.1 g/dL (3.2-4.8); Anion Gap 8 (5-15); Aspartate Aminotransferase 12 U/L (13-40); BUN/Creatinine Ratio 20.2 (10.0-20.0); Bilirubin, Total 0.9 mg/dL (0.2-1.0); Blood Urea Nitrogen 20 mg/dL (9-23); Total Protein 6.8 g/dL (5.7-8.2)
[2024-04-11 09:40] LABS: INR 1.1 (0.9-1.15); Partial Thromboplastin Time 31.6 SEC (24.5-34.5); Prothrombin Time 11.6 sec (9.3-11.8)
[2024-04-11] MEDS ORDERED: PATIENTS OWN MEDICATION (Carvedilol 1 TAB) PO SCH (10:00)
[2024-04-11] MEDS: CARVEDILOL 12.5 MG TAB PO SCH (10:10)
[2024-04-11] MEDS: FUROSEMIDE 40 MG TAB PO SCH (10:11)
--- NOTE | 2024-04-11 10:33 | DVH ---
EXAM: XY CHEST XRAY 1 VIEW Indication:CHEST DISCOMFORT Technique: Single frontal view of the chest was obtained Comparison: XY CHEST PORTABLE on DOS: 06/16/23, XY CHEST XRAY 1 VIEW on DOS: 06/13/23, XY CHEST PORTABL E on DOS: 06/11/23, XY CHEST PORTABLE on DOS: 03/16/23, XY CHEST PORTABLE on DOS: 09/25/22 FINDINGS: Lines and Tubes: None Lungs: Pulmonary vascular congestion. Pleura: No effusion. No pneumothorax. Cardiomediastinal contours: Cardiomegaly. Bones: No acute osseous abnormality. IMPRESSION: Cardiomegaly with pulmonary vascular congestion.
[2024-04-11 14:40] LABS: Urine Bacteria None Seen /hpf (None Seen)
[2024-04-11 14:53] LABS: Urine Blood Negative /uL (Negative); Urine Clarity Clear (Clear); Urine Color Yellow (Yellow); Urine Protein, UAD Negative (Negative); Urine Specific Gravity 1.017 (1.001-1.035); Urine Urobilinogen Normal (Negative); Urine WBC 1 /hpf (0 - 5)
[2024-04-11 15:05] LABS: Amphetamine Screen, Urine Neg (NEGATIVE); Barbiturate Scree,Urine Neg (NEGATIVE); Benzodiazephine Screen, Urine Neg (NEGATIVE); Cannabinoid Screen, Urine Neg (NEGATIVE); Cocaine Screen, Urine Neg (NEGATIVE); Opiate Scree,Urine Neg (NEGATIVE); Phencyclidine Screen, Urine Neg (NEGATIVE)
--- NOTE | 2024-04-11 15:15 | DVHPNRES ---
Progress Note Date Seen: Apr 11, 2024 Resident Creating Document: CALI WITT RESIDENT Medical Necessity Reason Pt with a Central, PICC or Fol: No Subjective Review of Systems patient Is 73 years old female with past medical history of congestive heart failure, hypertension, COPD, asthma, CAD, AL, hypertension, hyperlipidemia, diabetes mellitus type 2, COPD, asthma, gout, rheumatoid arthritis, anemia presented to the ED with the chief complaints of elevated blood pressure for past few days. Patient reported she has been monitoring her blood pressure every day, yesterday morning she checked her blood pressure which was 175/95 and then she rechecked which showed 187/101, having headaches, mild chest discomfort which is pressure-like pain substernal, nonradiating, nothing make it better words, mild dizziness which prompted her to visit ED. on my assessment patient denies fever, nausea, vomiting, palpitations, diaphoresis, and other associated symptoms. Patient has a history of hypertension and states that her blood pressure is not always well controlled. Patient's initial lab workup included troponin I and BNP was negative. WBC 10.6, analysis revealed leukocyte esterase 2+, WBC 2 +RBC 1. [place] urinalysis revealed- nitrite negative leukocyte esterase negative WBC 1 urine bacteria none, UDS negative, plasma alcohol < 3, CXR revealed-Cardiomegaly with pulmonary vascular congestion. PMH-heart failure, COPD, asthma, CAD, AL, hypertension, hyperlipidemia, diabetes mellitus type 2, COPD, asthma, gout, rheumatoid arthritis, anemia PSH- bilateral total knee replacement, right eye surgery, Allergy- , levofloxacin, ceftriaxone Personal History/ Social History-Lives alone. Denies smoking, alcohol and other drug abuse Patient was seen today at the bedside. Patient reports feeling okay today Cardiovascular- deny acute chest pain or shortness of breath or cough or palpitation Respiratory- denies cough or short of breath or wheezing Gastrointestinal- denies any rectal bleeding, nausea or vomiting Musculoskeletal-denies acute joint swelling or tenderness or redness Neurological- denies acute dysarthria, dysphagia, change in vision Psychiatry- denies depression or SI or HI Skin- denies acute rash or purpura Patient was seen today for clinical evaluation. Labs than chart reviewed. Patient's initial lab workup included troponin I and BNP was negative. WBC 10.6, analysis revealed leukocyte esterase 2+, WBC 2 +RBC 1. Chest pain or shortness of breath. On 03/02/2024 patient had a right and left heart catheterization which revealed- Pulmonary hypertension likely multifactorial primarily due to diastolic heart failure from hypertensive heart disease. Lung addition can not be ruled out as playing factor also. Elevated left ventricular end-diastolic pressure indicating diastolic heart failure. No significant coronary artery disease was noted in the study done today. Pending echo 2D report. Objective vital signs Vital Sign Date Time Temp Pulse Resp B/P (MAP) Pulse Ox O2 Delivery O2 Flow Rate FiO2 04/11/24 12:43 68 130/58 04/11/24 12:41 97.6 16 94 97.6 04/11/24 08:00 Nasal Cannula* 3 32 Total Intake and Output 04/10/24 04/10/24 04/11/24 15:00 23:00 07:00 Intake Total 0 ml Balance 0 ml medications Current Medications Medications Dose Ordered Sig/Kristen Route Start Time Stop Time Status Last Admin Dose Admin Sodium Chloride 10 ml Q8HR IV 04/11/24 06:00 04/11/24 13:59 10 ML Ondansetron HCl 4 mg Q4HP PRN IV 04/11/24 00:30 Acetaminophen 650 mg Q6HP PRN PO 04/11/24 00:30 Morphine Sulfate 2 mg Q4HPRN PRN IV 04/11/24 00:30 Enoxaparin Sodium 40 mg DAILY SC 04/11/24 00:30 04/11/24 10:11 40 MG Nitroglycerin 0.4 mg Q5MINP PRN SL 04/11/24 00:30 Morphine Sulfate 2 mg Q30M PRN IV 04/11/24 00:30 Furosemide 40 mg DAILY PO 04/11/24 10:00 04/11/24 10:11 40 MG Latanoprost 1 drop QPM EACHEYE 04/11/24 18:00 Patient Own Medication 1 tab BID PO 04/11/24 10:00 UNV Hydralazine HCl 10 mg Q6HPRN PRN IV 04/11/24 00:30 Carvedilol 25 mg BID PO 04/11/24 10:00 04/11/24 10:10 25 MG Albuterol 2.5 mg Q4HPRN PRN NEB 04/11/24 00:45 Examination General examination- alert, oriented, conversant HEENT- PEERLA, no acute nasal discharge Cardiovascular- S1-S2 audible, rate and rhythm regular, no murmur Respiratory- CTAB, no wheeze or rhonchi Gastrointestinal-nontender, bowel sound+. Nondistended Musculoskeletal-no acute joint swelling or tenderness or redness# Lower extremity- no leg edema Neurological- cranial nerves intact, no acute dysarthria or dysphagia Psychiatry- denies depression or SI or HI Skin- no acute rash or purpura laboratory and microbiology Laboratory Tests 04/11/24 08:55 Test 04/11/24 08:55 Range/Units Serum Glucose 111 H 74-106 mg/dL Problem List/Assessment/Plan Problem List/Assessment/Plan # hypertensive urgency -continue hydralazine 10 mg q.6h p.r.n. -continue carvedilol 25 mg p.o. b.i.d. -Lasix 40 mg p.o. daily # acute chest pain likely due to hypertensive urgency -rule out ACS -EKG with a sinus rhythm -troponin I non-significant -continue morphine p.r.n. -continue nitroglycerin p.r.n. as prescribed -ASA 81 mg p.o. q.d. #Vitamin-D deficiency -vitamin-D 23.8 -continue ergo cholecalciferol 21563 units q.week # hypertensive urgency -closely monitor blood pressure -initially given clonidine 0.2mg -resumed home meds -IV hydralazine 10 mg p.r.n. if blood pressure is more than 160 -ordered echocardiogram, pending -cardiology consultation if needed # COPD and asthma not in exacerbation -continue nebulization as prescribed # CHF not in exacerbation -carvedilol 25 mg p.o. b.i.d. -continue Lasix 40 mg p.o. daily # pulmonary hypertension -continue sildenafil 20 mg p.o. t.i.d. # history of CAD, --EKG with a sinus rhythm -troponin I non-significant -continue morphine p.r.n. -continue nitroglycerin p.r.n. as prescribed -ASA 81 mg p.o. q.d. # hyperlipidemia -continue lipid profile 20 mg q.h.s. -monitor lipid profile every 6 months # rheumatoid arthritis-no acute flare -follow up out patient # history of gout -no acute flare Goals of care/advance care planning; FULL CODE; discussed with the patient, discussion >15 minutes PUD prophylaxis: DVT prophylaxis: Lovenox Plan discussed with Dr. Banks,,, nursing staff, patient Total time spent on patient evaluation, chart review, assessment and plan, discussion discussion >20 minutes Plan discussed with: Patient Plan discussed with: Patient, Other (RN) Date of Service: Apr 11, 2024 Billing Provider: JAIME BANKS MD Common Visit Codes: 09975-[id number] INP/OBS CARE(HIGH) Secondary Visit Codes: 51009-[id number] CARE PLAN 30 MINUTES CALI WITT RESIDENT Apr 11, 2024 15:15 JAIME BANKS MD Apr 12, 2024 11:38
[2024-04-11] MEDS: ASPirin 81 mg TAB PO ONE (16:43)
[2024-04-11] MEDS: ERGOCALCIFEROL 50,000 UNIT(1.25MG) CAP PO SCH (16:44)
[2024-04-11] MEDS: LATANOPROST 0.005 % OPTH(EYE) SOL 2.5ML EACHEYE SCH (17:50)
[2024-04-11] MEDS: ATORVASTATIN 20 MG TAB PO SCH (21:42)
[2024-04-11] MEDS: SILDENAFIL CITRATE 20 MG TAB PO SCH (21:43)
[2024-04-12] VITALS (10 sets, daily range): BP systolic 100–148; BP diastolic 44–82; PULSE 52–63; RESP 14–20; TEMP 97.6–98.4; O2SAT 96–100
[2024-04-12 06:37] LABS: Basophils # (auto) 0 10 ^3/uL (0-0.2); Basophils % (auto) 0.6 % (0.0-2.0); Eosinophils # (auto) 0.1 10 ^3/uL (0-0.8); Hematocrit 40.2 % (36.0-46.0); Hemoglobin 13.2 g/dL (12.2-16.2); Lymphocytes # (auto) 1.6 10 ^3/uL (0.4-5.4); Lymphocytes % (auto) 25.5 % (10.0-50.0); Mean Corpuscular Hemoglobin 28.8 pg (28.0-32.0); Mean Corpuscular Hgb Conc. 32.9 g/dL (32.0-36.0); Mean Corpuscular Volume 87.6 fL (80.0-100.0); Monocytes # (auto) 0.8 10 ^3/uL (0-1.3); Monocytes % (auto) 12.4 % (0.0-12.0); Neutrophils # (auto) 3.9 10 ^3/uL (1.6-8.6); Neutrophils % (auto) 60.5 % (37.0-80.0); Platelet Count (auto) 175 10^3/uL (140-450); Red Blood Cells 4.59 10^6/uL (4.0-5.20); Red Cell Distribution Width 15.3 % (11.8-14.3); White Blood Cell 6.5 10^3/uL (4.4-10.8)
[2024-04-12 06:50] LABS: Anion Gap 6 (5-15); Carbon Dioxide 33 mmol/L (20-31); Chloride 101 mmol/L (98-107); Potassium 3.9 mmol/L (3.5-5.1); Sodium 140 mmol/L (136-145)
[2024-04-12 06:52] LABS: Calcium 9.5 mg/dL (8.7-10.4)
[2024-04-12 06:56] LABS: BUN/Creatinine Ratio 21.7 (10.0-20.0); Blood Urea Nitrogen 18 mg/dL (9-23); Glucose 101 mg/dL (74-106)
--- NOTE | 2024-04-12 09:05 | DVHSR ---
APPROVED REPORT EXAM: Two-dimensional and M-mode echocardiogram with Doppler and color Doppler. Blood Pressure: 163/67 mmHg INDICATION Chest Pain RISK FACTORS Height: 58, Weight: 143 DIMENSIONS LVDd3.9 (3.8-5.7cm)LA (2D)4.2 (1.9-4.0cm)Aortic Root3.4 (2.0-3.7cm) LVDs3.0 (2.5-4.0cm)LA (MM) (1.9-4.0cm)Aortic Cusp Exc1.3 (1.5-2.0cm) EF (%) 50.0 (55-70%)Rt. Atrium4.3 (1.9-4.0cm)Asc. Aorta cm Mitral Valve MitralMitral Stenosis E wave1.07m/sMV Mean GR.mmHg A wave0.72m/sMV Peak GR.79mmHg E/A ratio1.52D MVAcm2 DECEL [id number] 1/2 [id number] IVRTmsDop MVA2.81cm2 Aortic Valve Aortic ValveAortic Stenosis V10.92m/Chu Mean GR.5mmHg V21.45m/Chu Peak GR.8mmHg LVOT Diameter2.3 (1.8-2.4cm)Doppler AVA2.63cm2 Tricuspid Valve TR Velocity3.01m/s [id number] Conclusion lvef 50% by visual estimate moderate lvh rv enlargement, normal function left atrium enlarged
[2024-04-12] MEDS: ALBUTEROL SULF 2.5 MG/0.5ML(0.5%) NEB SOLN NEB PRN (10:01)
[2024-04-12] MEDS: ASPirin 81 mg TAB PO SCH (10:48)
--- NOTE | 2024-04-12 16:50 | DVHDSRES ---
Discharge Summary Date of Admission Resident Creating Document: GIOVANY RIBERA RESIDENT Apr 11, 2024 at 00:29 Date of Discharge: Apr 12, 2024 Admitting Diagnosis Hypertensive urgency. Wounds: No wounds present at this time. Labs/Diagnostic Data: Laboratory Results Test 04/12/24 06:04 04/11/24 13:47 04/11/24 08:55 04/10/24 21:17 White Blood Count 6.5 10^3/uL (4.4-10.8) Red Blood Count 4.59 10^6/uL (4.0-5.20) Hemoglobin 13.2 g/dL (12.2-16.2) Hematocrit 40.2 % (36.0-46.0) Mean Corpuscular Volume 87.6 fL (80.0-100.0) Mean Corpuscular Hemoglobin 28.8 pg (28.0-32.0) Mean Corpuscular Hemoglobin Concent 32.9 g/dL (32.0-36.0) Red Cell Distribution Width 15.3 % (11.8-14.3) Platelet Count 175 10^3/uL (140-450) Mean Platelet Volume 8.6 fL (6.9-10.8) Neutrophils (%) (Auto) 60.5 % (37.0-80.0) Lymphocytes (%) (Auto) 25.5 % (10.0-50.0) Monocytes (%) (Auto) 12.4 % (0.0-12.0) Eosinophils (%) (Auto) 1.0 % (0.0-7.0) Basophils (%) (Auto) 0.6 % (0.0-2.0) Neutrophils # (Auto) 3.9 10 ^3/uL (1.6-8.6) Lymphocytes # (Auto) 1.6 10 ^3/uL (0.4-5.4) Monocytes # (Auto) 0.8 10 ^3/uL (0-1.3) Eosinophils # (Auto) 0.1 10 ^3/uL (0-0.8) Basophils # (Auto) 0 10 ^3/uL (0-0.2) Nucleated Red Blood Cells 0.0 % Sodium Level 140 mmol/L (136-145) Potassium Level 3.9 mmol/L (3.5-5.1) Chloride Level 101 mmol/L (98-107) Carbon Dioxide Level 33 mmol/L (20-31) Anion Gap 6 (5-15) Blood Urea Nitrogen 18 mg/dL (9-23) Creatinine 0.83 mg/dL (0.550-1.02) Glomerular Filtration Rate Calc 75 mL/min (>90) BUN/Creatinine Ratio 21.7 (10.0-20.0) Serum Glucose 101 mg/dL (74-106) Calcium Level 9.5 mg/dL (8.7-10.4) Urine Color Yellow (Yellow) Urine Clarity Clear (Clear) Urine pH 6.0 (5.0-9.0) Urine Specific [place] 1.017 (1.001-1.035) Urine Protein Negative (Negative) Urine Ketones Negative (Negative) Urine Blood Negative /uL (Negative) Urine Nitrite Negative (Negative) Urine Bilirubin Negative (Negative) Urine Urobilinogen Normal mg/dL (Negative) Urine Leukocyte Esterase Negative /uL (Negative) Urine RBC None seen /hpf (0 - 4) Urine WBC 1 /hpf (0 - 5) Urine Squamous Epithelial Cells None seen /hpf (<5) Urine Bacteria None seen /hpf (None Seen) Urine Glucose Normal mg/dL (Normal) Urine Opiates Screen Neg (NEGATIVE) Urine Fentanyl Screen Neg (NEGATIVE) Urine Barbiturates Screen Neg (NEGATIVE) Urine Phencyclidine Screen Neg (NEGATIVE) Urine Amphetamines Screen Neg (NEGATIVE) Urine Benzodiazepines Screen Neg (NEGATIVE) Urine Cocaine Screen Neg (NEGATIVE) Urine Cannabinoids Screen Neg (NEGATIVE) Prothrombin Time 11.6 sec (9.3-11.8) Prothrombin Time INR 1.10 (0.9-1.15) Activated Partial Thromboplast Time 31.6 SEC (24.5-34.5) Hemoglobin A1c 5.8 % A1C (<5.7) Total Bilirubin 0.9 mg/dL (0.2-1.0) Aspartate Amino Transferase (AST) 12 U/L (13-40) Alanine Aminotransferase (ALT) 13 U/L (7-40) Alkaline Phosphatase 107 U/L (46-116) Troponin I High Sensitivity 12 ng/L (</=34) Total Protein 6.8 g/dL (5.7-8.2) Albumin 4.1 g/dL (3.2-4.8) Vitamin B12 Level 1161 pg/mL (211-911) Vitamin D 25-Hydroxy 23.8 ng/mL (30.0-100) Thyroid Stimulating Hormone (TSH) 1.39 uIU/mL (0.55-4.78) Plasma/Serum Blood Alcohol < 3.0 mg/dL (<10) B-Type Natriuretic Peptide 112.09 pg/mL (0-100) Other Laboratory Tests 04/12/24 06:04 Brief Hx & Hospital Course: This is a 73 years old female with past medical history of congestive heart failure, hypertension, COPD, asthma, CAD, [place], hypertension, hyperlipidemia, diabetes mellitus type 2, COPD, asthma, gout, rheumatoid arthritis, anemia presented to the ED with the chief complaints of elevated blood pressure for past few days. Patient reported she has been monitoring her blood pressure every day, yesterday morning she checked her blood pressure which was 175/95 and then she rechecked which showed 187/101, having headaches, mild chest discomfort which is pressure-like pain substernal, nonradiating, nothing make it better or worse, mild dizziness which prompted her to visit ED. At admission patient denied fever, nausea, vomiting, palpitations, diaphoresis, and other associated symptoms. Patient has a history of hypertension and states that her blood pressure is not always well controlled. Patient's initial lab workup included troponin I and BNP was negative. Initial WBC was 10.6. urinalysis was not suggestive of UTI. UDS negative. Patient was placed back on carvedilol 25 mg b.i.d., furosemide 40 mg p.o. and other home medicine. Blood pressure has been well controlled at this time. Today, patient was examined at bedside, denied chest pain, shortness of breath, headache or any other symptoms of dizziness. Patient states that feels well overall and wanted to go home. Patient will be discharged on her home medications and we instructed to take hydralazine 10 mg only if systolic blood pressure is above 160mmhg. Otherwise just continue on carvedilol and furosemide. Patient agrees and understands the plan. ROS Constitutional: Denies weight loss, fever and chills. HEENT: Denies changes in vision and hearing. Respiratory: Denies shortness of breath and cough Cardiovascular: Denies chest discomfort or palpitations GI: Denies abdominal pain, nausea, vomiting and diarrhea. : Denies dysuria and urinary frequency. Musculoskeletal: Denies myalgias and joint pain Skin: Denies rash and pruritus. Neurological: Denies dizziness, headache, vision or hearing problems Physical Examination General: Patient alert and oriented in person, place and time. Patient following commands. HEENT: Normocephalic, atraumatic, moist mucous membranes Respiratory/pulmonary: Clear lungs bilaterally, no associated crackles or wheezes. Cardiovascular: Normal heart sounds S1 and S2 with no associated murmurs Abdomen: Abdomen nondistended, there is no pain to palpation in any of the abdominal quadrants, no palpable masses. Extremities: There is no peripheral edema present at the lower extremities. Peripheral Pulses: 3+ Radial (R). 3+ Radial (L). 3+ Dorsalis pedis (R). 3+ Dorsalis pedis(L) Skin: No rashes or pruritus, there is no sacral edema present at this time. Neurological: Intact cranial nerves with no focal neurologic deficits Consults/Reason for consult N/A Operations or Procedures EXAM: XY CHEST XRAY 1 VIEW Indication:CHEST DISCOMFORT Technique: Single frontal view of the chest was obtained Comparison: XY CHEST PORTABLE on DOS: 06/16/23, XY CHEST XRAY 1 VIEW on DOS: 06/13/23, XY CHEST PORTABLE on DOS: 06/11/23, XY CHEST PORTABLE on DOS: 03/16/23, XY CHEST PORTABLE on DOS: 09/25/22 FINDINGS: Lines and Tubes: None Lungs: Pulmonary vascular congestion. Pleura: No effusion. No pneumothorax. Cardiomediastinal contours: Cardiomegaly. Bones: No acute osseous abnormality. IMPRESSION: Cardiomegaly with pulmonary vascular congestion. Condition at Discharge: Good Final Diagnosis/Problems List hypertensive urgency acute chest pain likely due to hypertensive urgency Vitamin-D deficiency hypertensive urgency COPD and asthma not in exacerbation CHF not in exacerbation pulmonary hypertension history of CAD, hyperlipidemia rheumatoid arthritis-no acute flare history of gout Discharge Disposition: Home Discharge Instruct/Medications Diet: Regular Activity: No Restrictions, As Tolerated Follow Up/Referral: F/U with her PCP in 1 week Medications: Hydralazine 10mg PRN just if BP is >160mmgh Discharge Statement: "Patient was advised to return to the ER or call 911 if any headaches, dizziness, shortness of breath, chest pain, abdominal pain, bleeding, fevers, or worsening of medical condition. Patient was counseled about treatment plan, medications, possible side effects, patientverbalized understanding. All questions were answered to the best of my ability. This discharge took greater then 30 minutes in planning, reviewing documentation, counseling the patient, and discussing with other team members." ASSESSMENT ASSESSMENT Assessment hypertensive urgency acute chest pain likely due to hypertensive urgency Vitamin-D deficiency hypertensive urgency COPD and asthma not in exacerbation CHF not in exacerbation pulmonary hypertension history of CAD, hyperlipidemia rheumatoid arthritis-no acute flare history of gout GIOVANY RIBERA RESIDENT Apr 12, 2024 16:50
[2024-04-12] MEDS ORDERED: HYDR-2792 PO (16:54)
== END 2024-04-12 19:20 | disposition home or self-care (01) | DRG 199 ==
LOC: ER 20:42 → TELE 04-11 00:29 → TELE-EAST 04-11 03:09
PROVIDERS: ADMIT Internal Medicine Geriatric Medicine; ATTEND Internal Medicine Geriatric Medicine
DX: I16.0 Hypertensive urgency (principal); I24.9 Acute ischemic heart disease, unspecified; I27.20 Pulmonary hypertension, unspecified; I50.9 Heart failure, unspecified; I11.0 Hypertensive heart disease with heart failure; E55.9 Vitamin D deficiency, unspecified; J44.89 Other specified chronic obstructive pulmonary disease; I25.10 Atherosclerotic heart disease of native coronary artery without angina pectoris; M10.9 Gout, unspecified; Z96.653 Presence of artificial knee joint, bilateral; M06.9 Rheumatoid arthritis, unspecified; E11.9 Type 2 diabetes mellitus without complications; E78.5 Hyperlipidemia, unspecified; Z88.1 Allergy status to other antibiotic agents; Z98.51 Tubal ligation status; I25.2 Old myocardial infarction; Z87.891 Personal history of nicotine dependence; Z82.49 Family history of ischemic heart disease and other diseases of the circulatory system
CPT/HCPCS: 36415; 71045; 80048; 80053; 80307; 80320; 81001; 82306; 82607; 83036; 83880; 84443; 84484; 85025; 85610; 85730; 93005; 93306; 94640; G0378

== ENCOUNTER 2024-07-03 20:15 | Inpatient (IN) | payer MEDICARE, MEDICAID ==
[~2024-07-03] VITALS: Ht 170.2 cm; Wt 68.8 kg
[~2024-07-03 20:15] MED LIST changes: -ALBUAER3 IN; -AMOX875T4 PO; -CEPH500C PO; -DIP005TP EX; +HYDR-2792 PO; -PRED10TA PO; -PRED20TA2 PO
--- NOTE | 2024-07-03 21:31 | DVH ---
Exam: CT CT AB PEL WO CON-NO ORAL OR IV History: abd pain Comparison Study: None Technique: Multidetector spiral CT of the abdomen was performed from lung bases to pubic symphysis. I maging was performed without IV contrast. Axial, coronal and sagittal multiplanar reformats were obta ined from the axial data set by the technologist. Radiation dose : 1. Abdomen/Pelvis: CTDIvol [CTDIvol] mGy, DLP mGy*cm. Findings: Evaluation of solid organs is limited due to lack of intravenous contrast use. Lung Bases: No abnormality demonstrated. Liver: No abnormality demonstrated. Gallbladder and biliary Tree: Gallbladder not visualized. No no evidence of biliary ductal dilatation . Spleen: No abnormality demonstrated. Pancreas: No abnormality demonstrated. Adrenal Glands: No abnormality demonstrated. Kidneys: No abnormality demonstrated. No evidence of renal calculus or hydroureteronephrosis. Cyst no nima in lower pole of right kidney. Bladder: Non distended. Bowel: Stomach appears grossly unremarkable. No dilated or thick-walled loops of large or small bowel noted. Appendix not definitely visualized. Ascites: Absent Lymphadenopathy: No evidence of lymphadenopathy. Abdominal wall and Mesentery: Unremarkable. Vasculature: Considerable calcific atherosclerotic changes in abdominal aorta and iliac arteries with out aneurysmal dilatation. Pelvic Organs: Calcified uterine fibroids. Musculoskeletal: No aggressive bony lesions or fracture. IMPRESSION: 1. No acute abdominal or pelvic findings. Radiation optimization: All CT scans at this facility use at least one of these dose optimization elsie hniques: Automated exposure control mA and/or kV adjustment per patient size (includes targeted exams where dose is matched to clinical indication) or iterative reconstruction.
--- NOTE | 2024-07-03 23:17 | ED.PDOC ---
GI ASSESSMENT HPI Comments HPI: Poor Historian. 73-year-old female presents to emergency department for right lower quadrant pain radiating to the right lumbosacral area for the last two weeks intermittent in nature. No alleviating or precipitating factors. She also states having some two day history of worsening of her shortness of breath. She has history of CHF and COPD she has 2 L oxygen dependent at home. On arrival she was hypoxic and was placed on supplemental oxygen. She also complains of constipation. Denies any chest pain or fever or any other acute symptoms. Past medical history includes COPD on 2 L nasal cannula, CHF, rheumatoid arthritis, hypertension. Past Surgical History: REVIEW OF SYSTEMS: CONSTITUTIONAL: Denies acute: fever, diaphoresis, chills, HEAD: Denies acute: headache, photophobia Eyes: Denies acute: Double vision, vision loss, eye pain, eye discharge. EARS: Denies acute: tinnitus, hearing loss, ear discharge, ear pain, THROAT: Denies acute: sore throat, swelling, difficulty swallowing , pain with swallowing, change in voice. NECK: Denies acute: neck pain, neck swelling, stiff neck. HEART: Denies acute : chest pain, palpitations, LUNGS: Denies acute: wheezing, cough, hemoptysis ABDOMEN: Denies acute: Nausea, Vomiting, diarrhea, melena , hematemesis, hematochezia SKIN: Denies acute: rash, redness, lesions, itchiness. EXTREMITIES: Denies acute: calf pain, numbness, tingling, weakness, denies pain in extremity. Neuro: Denies acute: focal neurological deficit, motor or sensory focal neurological deficit, tremors, seizure like activity, confusion, dizziness, change in mental status, loss of bowel or bladder function, cauda equina like symptoms. : Denies acute: dysuria, hematuria, flank pain, increase in urinary frequency. PSYCH: Denies acute: hallucination, suicidal ideation, homicidal ideation. FEMALE: Denies acute: abnormal vaginal bleeding, foul odor, unusual discharge. PHYSICAL EXAM: General: no acute distress, awake and alert. Head: normocephalic, atraumatic. Neck: supple, trachea is midline, no swelling. Throat: Normal phonation. Eyes:, no erythema, no purulent discharge, no proptosis, no icterus. Heart: regular rate, regular rhythm, no significant murmur appreciated. Lungs: no apparent respiratory distress, Able to speak in full sentences. No wheezing, no rhonchi, no crackles. No stridors Clear to auscultation bilaterally. Abdomen: Right lower quadrant tender to palpation, non distended, soft, no guarding, no rebound, + bowel sounds. Neuro: Awake, Alert, oriented to name, self, situation, follows commands GCS=15. Speech is normal. Skin: no petechia, no purpura, no cyanosis, non-pale, not jaundice. Lower extremities: --trace bilateral - Pitting edema no deformity, no focal swelling, no calf TTP. Makes eye contact. moves all four extremities. Face: no apparent facial droop. ED COURSE: Chief Complaint: Abdominal Pain Time Seen by MD: 20:28 Primary Care Provider: UNKNOWN Reviewed Notes: Nurses Notes, Allergies Allergies: Coded Allergies: Ceftriaxone (Verified Allergy, Intermediate, 12/31/23) RASH COUGH Levofloxacin (Verified Allergy, Unknown, 12/31/23) Home Meds Active Scripts Hydralazine Hcl (Hydralazine Hcl) 10 Mg Tab, 10 MG PO DAILY PRN for 20 Days, #20 TAB Prov:GIOVANY RIBERA RESIDENT 04/12/24 Reported Medications Latanoprost (LATANOPROST) 0.005 % Viktoriya, 1 DROP EACHEYE QPM for GLAUCOMA, #7.5 ML 3 Refills 12/31/23 Dorzolamide-Timolol (Dorzolamide Hcl/Timolol M) 1 Ml Viktoriya, 1 DROP EACHEYE BID, #10 ML 6 Refills 12/31/23 Uutspkdylqp-Ejcawbobmnkf-Lnhye (Trelegy Ellipta 200-62.5-25 Mcg/INH) 1 Aer Aer, 1 AER IN DAILY for COPD, AER 12/31/23 Sildenafil Citrate (SILDENAFIL CITRATE) 20 Mg Tab, 20 MG PO TID for PUL. HTN, TAB 12/31/23 Furosemide (Furosemide) 40 Mg Tab, 1 TAB PO DAILY 07/31/22 Carvedilol (Carvedilol) 25 Mg Tab, 1 TAB PO BID 07/31/22 Ferrous Sulfate (Ferosul) 325 Mg Tab, 1 TAB PO BID 07/31/22 Information Source: Patient Mode of Arrival: Ambulatory Past Medical History PAST MEDICAL HISTORY: Anemia, Angina, Arthritis, Asthma, CAD, Gout, High Lipids, HTN, ID Surgical History: Tonsillectomy, Tubal Ligation CLIENT SERVICE CONSULTANT History: No Pertinent CLIENT SERVICE CONSULTANT History Family History Family History: Reviewed,noncontributory to illness, Family hx of heart mervat Social History Smoker: Non-Smoker, Quit Greater Than 1 Year Alcohol: Denies ETOH Use Drugs: Denies Drug Use Lives In: Home Was a procedure done? Was a procedure done?: No GI differential Dx Differential Diagnosis: Other (As far as the abdominal pain. DDX include Diverticulitis, colitis, gastroenteritis, acute abdomen, SBO, enteritis, constipation, volvulus, appendicitis, Gallbladder disease, choledocolithiasis, ascending cholangitis, pancreatitis, intraAbdominal mass/neoplasm, hepatitis, UTI, pylonephritis, kidney stone, aneurysm, dissection, Inflammatory bowel disease, gastroparesis, ischemic bowel, As far as the dyspnea: DDx include ACS, unstable angina, anxiety, PE, pneumothroax, neoplasm, cardiac ischemia, COPD, asthma, CHF, pleural effusion, tobacco abuse, pneumonia, hypoxia, hypercapnia, anemia., infection/sepsis., pulmonary edema. Asthma, Cardiac tamponade, infection.) X-Ray, Labs, Meds, VS Vital Signs Date Time Temp Pulse Resp B/P (MAP) Pulse Ox O2 Delivery O2 Flow Rate FiO2 07/03/24 20:43 Nasal Cannula* 2 28 07/03/24 20:43 98.4 88 18 160/85 (110) 81 Lab Test 07/04/24 00:24 07/03/24 23:12 Range/Units Troponin I High Sensitivity 20 18 </=34 ng/L White Blood Count 11.1 H 4.4-10.8 10^3/uL Red Blood Count 4.54 4.0-5.20 10^6/uL Hemoglobin 12.9 12.2-16.2 g/dL Hematocrit 39.5 36.0-46.0 % Mean Corpuscular Volume 87.0 80.0-100.0 fL Mean Corpuscular Hemoglobin 28.5 28.0-32.0 pg Mean Corpuscular Hemoglobin Concent 32.7 32.0-36.0 g/dL Red Cell Distribution Width 14.6 H 11.8-14.3 % Platelet Count 286 140-450 10^3/uL Mean Platelet Volume 8.6 6.9-10.8 fL Neutrophils (%) (Auto) 67.9 37.0-80.0 % Lymphocytes (%) (Auto) 20.8 10.0-50.0 % Monocytes (%) (Auto) 9.3 0.0-12.0 % Eosinophils (%) (Auto) 1.4 0.0-7.0 % Basophils (%) (Auto) 0.6 0.0-2.0 % Neutrophils # (Auto) 7.6 1.6-8.6 10 ^3/uL Lymphocytes # (Auto) 2.3 0.4-5.4 10 ^3/uL Monocytes # (Auto) 1.0 0-1.3 10 ^3/uL Eosinophils # (Auto) 0.2 0-0.8 10 ^3/uL Basophils # (Auto) 0.1 0-0.2 10 ^3/uL Nucleated Red Blood Cells 0.0 % Urine Color Yellow Yellow Urine Clarity Clear Clear Urine pH 5.5 5.0-9.0 Urine Specific [place] 1.018 1.001-1.035 Urine Protein 2+ H Negative Urine Ketones Negative Negative Urine Blood Negative Negative /uL Urine Nitrite Negative Negative Urine Bilirubin Negative Negative Urine Urobilinogen Normal Negative mg/dL Urine Leukocyte Esterase 1+ Negative /uL Urine RBC <1 0 - 4 /hpf Urine Microscopic WBC 4 0-5 /HPF Urine Squamous Epithelial Cells Few <5 /hpf Urine Bacteria None seen None Seen /hpf Urine Hyaline Casts Few 0 - 2 /lpf Urine Mucus Few None Seen Urine Glucose Normal Normal mg/dL Sodium Level 136 136-145 mmol/L Potassium Level 4.0 3.5-5.1 mmol/L Chloride Level 101 98-107 mmol/L Carbon Dioxide Level 26 20-31 mmol/L Anion Gap 9 5-15 Blood Urea Nitrogen 19 9-23 mg/dL Creatinine 1.18 H 0.550-1.02 mg/dL Glomerular Filtration Rate Calc 49 >90 mL/min BUN/Creatinine Ratio 16.1 10.0-20.0 Serum Glucose 115 H 74-106 mg/dL Lactic Acid Level 0.9 0.4-2.0 mmol/L Calcium Level 10.1 8.7-10.4 mg/dL Total Bilirubin 0.5 0.2-1.0 mg/dL Aspartate Amino Transferase (AST) 31 13-40 U/L Alanine Aminotransferase (ALT) 23 7-40 U/L Alkaline Phosphatase 131 H 46-116 U/L B-Type Natriuretic Peptide 526.22 0-100 pg/mL Total Protein 7.3 5.7-8.2 g/dL Albumin 4.6 3.2-4.8 g/dL Lipase 30 12-53 U/L Time of 1ST Reevaluation: 03:36 Reevaluation 1ST: Improved Patient Education/Counseling: Diagnosis, Treatment Family Education/Counseling: Other Comments Patient presented with the above HPI.--abdominal pain and dyspnea----workup was initiated. patient was found with the above mentioned diagnosis. the following medications were ordered: please refer to order lists of meds and tests obtained by myself Dr. Vargas. Patient ED course and VS have been stabilized. Patient has been reassessed in the ED and remained in a stable condition. Pertinent incidental findings were discussed with the patient and/or family. Patient/family voices understanding and is agreeable with plan. Patient has been observed in the ED adequate length of time to insure improvement/stability. Escalation of care considered: Consideration of escalation to observation or admission Patient was ADMITTED to the medicine team for further evaluation and treatment of their presentation. All the reports of any imaging studies that were ordered by myself were reviewed by myself. Departure 1 Departure Time of Disposition: 23:16 Impression: Primary Impression: Hypoxemia Additional Impressions: Abdominal pain CHF exacerbation COPD exacerbation Disposition: ADMITTED INPATIENT Admit to: Tele Condition: Guarded Discharged With: Self Critical Care Note Critical Care Time?: Yes (45 min-critical care time only) Heart Score Heart Score: Heart Score Response (Comments) Value History Moderate Suspicious 1 EKG Normal 0 Age >65 2 Risk Factors >3 or Hx ASHD 2 Troponin Normal limit 0 Total 5 LIZ VARGAS DO Jul 03, 2024 23:17
[2024-07-03 23:28] LABS: Basophils # (auto) 0.1 10 ^3/uL (0-0.2); Basophils % (auto) 0.6 % (0.0-2.0); Eosinophils # (auto) 0.2 10 ^3/uL (0-0.8); Eosinophils % (auto) 1.4 % (0.0-7.0); Hematocrit 39.5 % (36.0-46.0); Hemoglobin 12.9 g/dL (12.2-16.2); Lymphocytes # (auto) 2.3 10 ^3/uL (0.4-5.4); Lymphocytes % (auto) 20.8 % (10.0-50.0); Mean Corpuscular Hemoglobin 28.5 pg (28.0-32.0); Mean Corpuscular Hgb Conc. 32.7 g/dL (32.0-36.0); Monocytes % (auto) 9.3 % (0.0-12.0); Neutrophils # (auto) 7.6 10 ^3/uL (1.6-8.6); Neutrophils % (auto) 67.9 % (37.0-80.0); Platelet Count (auto) 286 10^3/uL (140-450); Red Blood Cells 4.54 10^6/uL (4.0-5.20); Red Cell Distribution Width 14.6 % (11.8-14.3); White Blood Cell 11.1 10^3/uL (4.4-10.8)
--- NOTE | 2024-07-03 23:39 | DVH ---
CHEST RADIOGRAPH Indication: SOB Technique: Single frontal view of the chest was obtained Comparison: XY CHEST XRAY 1 VIEW on DOS: 04/11/24, XY CHEST PORTABLE on DOS: 06/16/23, XY CHEST XRAY 1 VIEW on DOS: 06/13/23. Prior CT examination of the chest June 11 2023 FINDINGS: Prior CT examination of the chest patient had grossly enlarged pulmonary arteries patient has grossly enlarged pulmonary arteries in the study. Heart size borderline is unchanged. There is mild pulmonar y vascular congestion noted bilaterally. IMPRESSION: 1. Borderline heart size with grossly enlarged pulmonary arteries. If more imaging is required I woul d recommend a CT examination chest with contrast 1. .
[2024-07-03 23:45] LABS: Alanine Aminotransferase 23 U/L (7-40); Albumin 4.6 g/dL (3.2-4.8); Anion Gap 9 (5-15); Aspartate Aminotransferase 31 U/L (13-40); BUN/Creatinine Ratio 16.1 (10.0-20.0); Blood Urea Nitrogen 19 mg/dL (9-23); Calcium 10.1 mg/dL (8.7-10.4); Carbon Dioxide 26 mmol/L (20-31); Chloride 101 mmol/L (98-107)
[2024-07-03 23:46] LABS: Bilirubin, Total 0.5 mg/dL (0.2-1.0); Total Protein 7.3 g/dL (5.7-8.2)
[2024-07-03 23:47] LABS: Alkaline Phosphatase 131 U/L (46-116); Glucose 115 mg/dL (74-106); Sodium 136 mmol/L (136-145)
[2024-07-03 23:59] LABS: Lipase 30 U/L (12-53); Urine Bacteria None Seen /hpf (None Seen)
[2024-07-04] VITALS (8 sets, daily range): BP systolic 122; BP diastolic 53; PULSE 65–87; RESP 18–20; TEMP 97.5; O2SAT 92–100
[2024-07-04 00:08] LABS: Urine Blood Negative /uL (Negative); Urine Clarity Clear (Clear); Urine Color Yellow (Yellow); Urine Hyaline Cast FEW /lpf (0 - 2); Urine Mucus FEW (None Seen); Urine Protein, UAD 2+ (Negative); Urine Specific Gravity 1.018 (1.001-1.035); Urine Squamous Epithelial Cell FEW /hpf (<5); Urine Urobilinogen Normal (Negative); Urine WBC 4 /HPF (0-5); Urine pH 5.5 (5.0-9.0)
[2024-07-04] MEDS: ALBUTEROL SULF 2.5 MG/0.5ML(0.5%) NEB SOLN ONE ×2 (06:20→11:08)
[2024-07-04] MEDS: IPRATROPIUM BROM 0.5 MG/2.5ML INH SOL ONE ×2 (06:20→11:09)
[2024-07-04] MEDS: HYDROcodone-ACET 5/325MG TAB PO ONE (06:21)
[2024-07-04] MEDS: FUROSEMIDE 40 MG/4 ML VIAL IV ONE (06:26)
[2024-07-04] MEDS: methylPREDNISolone SOD SUCC 125 MG/2 ML VL IV ONE (06:26)
[2024-07-04] MEDS: ALBUTEROL SULF 2.5 MG/0.5ML(0.5%) NEB SOLN NEB ONE (06:48)
[2024-07-04] MEDS: IPRATROPIUM BROM 0.5 MG/2.5ML INH SOL NEB ONE (06:49)
[2024-07-04] MEDS ORDERED: IPRATROPIUM BROM 0.5 MG/2.5ML INH SOL NEB PRN (10:15)
[2024-07-04] MEDS ORDERED: ALBUTEROL SULF 2.5 MG/0.5ML(0.5%) NEB SOLN NEB PRN (10:15)
[2024-07-04] MEDS ORDERED: MEROPENEM 500MG IVPB 50 ML IV ONE (10:15)
[2024-07-04] MEDS ORDERED: HYDROcodone-ACET 5/325MG TAB PO PRN (10:15)
[2024-07-04] MEDS ORDERED: ONDANSETRON HCL 4 MG/2 ML VIAL IV PRN (10:15)
[2024-07-04] MEDS ORDERED: ACETAMINOPHEN 325 MG TAB PO PRN (10:15)
--- NOTE | 2024-07-04 10:15 | DVHHP2 ---
History of Present Illness Reason for Visit: Abdominal pain History of Present Illness Piper Recinos is a 73-year-old female with past medical history of CAD, hypertension, hyperlipidemia, COPD on 2 L nasal cannula at home, asthma, CHF, gout, VA, anemia, rheumatoid arthritis, tonsillectomy, tubal ligation, bilateral knee replacements, and right foot surgery who presents to the ED with abdominal pain radiating to the back, shortness of breath, and 3+ pitting edema bilateral lower extremities x2 days. Patient complains of pain in the abdomen 5/10 pressure like and constant. Patient reports that there are no alleviating or triggering factors. Patient denies any chest pain, nausea, vomiting, diarrhea, fever, chills, lightheadedness, weakness, and dizziness. Patient also reports that she quit smoking and quit drinking and does not use illicit drugs. Cardiovascular: CAD, CHF, HTN, VA, hyperipidemia Pulmonary: Asthma, COPD Heme/Onc: Anemia NOS Rheumatologic: Gout Past Medical History Rheumatoid arthritis Past Surgical History: Other (Bilateral knee replacement and right foot surgery), Tubal Ligation, Tonsillectomy Family History: Hypertension, Other (Mom with hypertension and dad with glaucoma) Smoke: Quit ALCOHOL: none Drugs: None Lives: Alone Domestic Violence: Neg Review of Systems Constitutional: No: Fever, Chills, Sweats, Weakness, Malaise, Other Eyes: No: Pain, Vision change, Conjunctivae inflammation, Eyelid inflammation, Other, Redness ENT: No: Ear pain, Ear discharge, Nose pain, Nose discharge, Nose congestion, Mouth pain, Mouth swelling, Throat pain, Throat swelling, Other Respiratory: Shortness of breath Cardiovascular: Edema; No: Chest Pain, Palpitations, Orthopnea, Paroxysmal Noc. Dyspnea, Lt Headedness, Other Gastrointestinal: Abdominal Pain; No: Nausea, Vomiting, Diarrhea, Constipation, Melena, Hematochezia, Other Genitourinary: No Dysuria, No Frequency, No Incontinence, No Hematuria, No Retention, No Other Musculoskeletal: No: other, neck pain, shoulder pain, arm pain, back pain, hand pain, leg pain, foot pain Skin: No: Rash, Lesions, Jaundice, Bruising, Other Neurological: No: Weakness, Numbness, Incoordination, Change in speech, Confusion, Seizures, Other Allergies: Coded Allergies: Ceftriaxone (Verified Allergy, Intermediate, 12/31/23) RASH COUGH Levofloxacin (Verified Allergy, Unknown, 12/31/23) Exam Vital Signs Vital Signs Date Time Temp Pulse Resp B/P (MAP) Pulse Ox O2 Delivery O2 Flow Rate FiO2 07/04/24 06:49 18 99 Simple Mask* 6 50 07/04/24 06:35 60 07/04/24 06:35 97.6 140/62 (88) 97.6 General Appearance: Alert, Oriented X3, Cooperative, No acute distress HEENT: Atraumatic, PERRLA, EOMI, Mucous membr. moist/pink Respiratory: Normal air movement Cardiovascular: Regular rate, Normal S1, Normal S2, No murmurs Abdominal: Normal bowel sounds, Soft, No tenderness, No hepatospenomegaly, No masses Extremities: No clubbing, No cyanosis, Normal pulses Skin: No significant lesion Neuro: Normal speech, Normal tone, Sensation intact Psych/Mental Status: Mental status NL, Mood NL Labs/Xrays Labs Test 07/04/24 00:24 07/03/24 23:12 Range/Units Troponin I High Sensitivity 20 </=34 ng/L White Blood Count 11.1 H 4.4-10.8 10^3/uL Red Blood Count 4.54 4.0-5.20 10^6/uL Hemoglobin 12.9 12.2-16.2 g/dL Hematocrit 39.5 36.0-46.0 % Mean Corpuscular Volume 87.0 80.0-100.0 fL Mean Corpuscular Hemoglobin 28.5 28.0-32.0 pg Mean Corpuscular Hemoglobin Concent 32.7 32.0-36.0 g/dL Red Cell Distribution Width 14.6 H 11.8-14.3 % Platelet Count 286 140-450 10^3/uL Mean Platelet Volume 8.6 6.9-10.8 fL Neutrophils (%) (Auto) 67.9 37.0-80.0 % Lymphocytes (%) (Auto) 20.8 10.0-50.0 % Monocytes (%) (Auto) 9.3 0.0-12.0 % Eosinophils (%) (Auto) 1.4 0.0-7.0 % Basophils (%) (Auto) 0.6 0.0-2.0 % Neutrophils # (Auto) 7.6 1.6-8.6 10 ^3/uL Lymphocytes # (Auto) 2.3 0.4-5.4 10 ^3/uL Monocytes # (Auto) 1.0 0-1.3 10 ^3/uL Eosinophils # (Auto) 0.2 0-0.8 10 ^3/uL Basophils # (Auto) 0.1 0-0.2 10 ^3/uL Nucleated Red Blood Cells 0.0 % Urine Color Yellow Yellow Urine Clarity Clear Clear Urine pH 5.5 5.0-9.0 Urine Specific [place] 1.018 1.001-1.035 Urine Protein 2+ H Negative Urine Ketones Negative Negative Urine Blood Negative Negative /uL Urine Nitrite Negative Negative Urine Bilirubin Negative Negative Urine Urobilinogen Normal Negative mg/dL Urine Leukocyte Esterase 1+ Negative /uL Urine RBC <1 0 - 4 /hpf Urine Microscopic WBC 4 0-5 /HPF Urine Squamous Epithelial Cells Few <5 /hpf Urine Bacteria None seen None Seen /hpf Urine Hyaline Casts Few 0 - 2 /lpf Urine Mucus Few None Seen Urine Glucose Normal Normal mg/dL Sodium Level 136 136-145 mmol/L Potassium Level 4.0 3.5-5.1 mmol/L Chloride Level 101 98-107 mmol/L Carbon Dioxide Level 26 20-31 mmol/L Anion Gap 9 5-15 Blood Urea Nitrogen 19 9-23 mg/dL Creatinine 1.18 H 0.550-1.02 mg/dL Glomerular Filtration Rate Calc 49 >90 mL/min BUN/Creatinine Ratio 16.1 10.0-20.0 Serum Glucose 115 H 74-106 mg/dL Lactic Acid Level 0.9 0.4-2.0 mmol/L Calcium Level 10.1 8.7-10.4 mg/dL Total Bilirubin 0.5 0.2-1.0 mg/dL Aspartate Amino Transferase (AST) 31 13-40 U/L Alanine Aminotransferase (ALT) 23 7-40 U/L Alkaline Phosphatase 131 H 46-116 U/L B-Type Natriuretic Peptide 526.22 0-100 pg/mL Total Protein 7.3 5.7-8.2 g/dL Albumin 4.6 3.2-4.8 g/dL Lipase 30 12-53 U/L CTA Chest with intravenous contrast INDICATION: ENLARGED PULMONARY ARTERIES COMPARISON: CT CT ANGIO CHEST CONTRAST on DOS: 06/11/23 TECHNIQUE: Multidetector spiral CTA of the chest was performed of the chest with intravenous contrast. PULMONARY ANGIOGRAPHY PROTOCOL was utilized using a bolus- tracking technique centered on the main pulmonary artery. Axial, coronal and sagittal multiplanar and MIP reformats were performed. CONTRAST: Type of contrast: Omni 350 Contrast injected: 100 ml Radiation dose : Chest: CTDI volume is 31 mGy. Dose-length product is 558.57 mGy*cm The dose indicators for CT are the volume computed Tomography (CT) dose Index (CTDIvol) and the dose Length product (DLP), and are measured in units of mGy and mGy-cm, respectively. These indicators are not patient dose, but values generated from the CT scanner acquisition factors. The report includes radiation exposure data for exposures received during this examination. Findings: Pulmonary artery: No pulmonary embolism. Marked dilation of the main pulmonary artery suggesting pulmonary arterial hypertension. Lower neck: Normal thyroid. Lungs: Atelectasis and scarring in the lung bases. Mild patchy ground-glass opacity in both lungs. Heart/Vascular Structures: Normal heart size. No pericardial effusion. Lymph Nodes: No adenopathy Pleura: No pleural effusion or significant pneumothorax. Musculoskeletal: No acute osseous abnormality. Soft tissues: Normal. Upper abdomen: Right renal cyst. IMPRESSION: 1. No pulmonary embolism. Marked dilation of the main pulmonary artery suggesting pulmonary arterial hypertension. 2. Patchy ground-glass opacities in both lungs likely related to subsegmental atelectasis. Superimposed infectious or inflammatory process is not excluded. Clinical correlation and continued follow-up is recommended. CHEST RADIOGRAPH Indication: SOB Technique: Single frontal view of the chest was obtained Comparison: XY CHEST XRAY 1 VIEW on DOS: 04/11/24, XY CHEST PORTABLE on DOS: 06/16/23, XY CHEST XRAY 1 VIEW on DOS: 06/13/23. Prior CT examination of the chest June 11 2023 FINDINGS: Prior CT examination of the chest patient had grossly enlarged pulmonary arteries patient has grossly enlarged pulmonary arteries in the study. Heart size borderline is unchanged. There is mild pulmonary vascular congestion noted bilaterally. IMPRESSION: 1. Borderline heart size with grossly enlarged pulmonary arteries. If more imaging is required I would recommend a CT examination chest with contrast Exam: CT CT AB PEL WO CON-NO ORAL OR IV History: abd pain Comparison Study: None Technique: Multidetector spiral CT of the abdomen was performed from lung bases to pubic symphysis. Imaging was performed without IV contrast. Axial, coronal and sagittal multiplanar reformats were obtained from the axial data set by the technologist. Radiation dose : 1. Abdomen/Pelvis: CTDIvol [CTDIvol] mGy, DLP mGy*cm. Findings: Evaluation of solid organs is limited due to lack of intravenous contrast use. Lung Bases: No abnormality demonstrated. Liver: No abnormality demonstrated. Gallbladder and biliary Tree: Gallbladder not visualized. No no evidence of biliary ductal dilatation. Spleen: No abnormality demonstrated. Pancreas: No abnormality demonstrated. Adrenal Glands: No abnormality demonstrated. Kidneys: No abnormality demonstrated. No evidence of renal calculus or hydroureteronephrosis. Cyst noted in lower pole of right kidney. Bladder: Non distended. Bowel: Stomach appears grossly unremarkable. No dilated or thick-walled loops of large or small bowel noted. Appendix not definitely visualized. Ascites: Absent Lymphadenopathy: No evidence of lymphadenopathy. Abdominal wall and Mesentery: Unremarkable. Vasculature: Considerable calcific atherosclerotic changes in abdominal aorta and iliac arteries without aneurysmal dilatation. Pelvic Organs: Calcified uterine fibroids. Musculoskeletal: No aggressive bony lesions or fracture. IMPRESSION: 1. No acute abdominal or pelvic findings. Radiation optimization: All CT scans at this facility use at least one of these dose optimization techniques: Automated exposure control mA and/or kV adjustment per patient size (includes targeted exams where dose is matched to clinical indication) or iterative reconstruction. Assessment/Plan Assessment/Plan Assessment/Plan: Intractable abdominal pain Leukocytosis probable PNA vs UTI HECTOR Pulmonary hypertension Labs Respiratory treatments Steroids given in ED Pain management Diuretics BNP Chest x-ray noted EKG Trop negative x2 UA Lipase L[address] abdomen pelvis noted CTA chest IV antibiotics-meropenem + doxycycline Antiemetics A.m. labs Supportive oxygen Patient on sildenafil GI consult History of CAD History of VA Continue home medications Monitor Chronic hypertension Continue home medications Chronic hyperlipidemia Continue home medications History of COPD History of Asthma Continue home medication Patient oxygen dependent 2 L nasal cannula at home continuous History of rheumatoid arthritis Continue home medication History of CHF Continue home medication History of anemia Monitor History of gout Continue home medication FEN/PPX Diet Hep-Lock DVT prophylaxis not indicated patient ambulating PUD prophylaxis -Protonix Admit to med surg Home medications reconciled Discussed plan of care with patient and nurse Plan discussed with: Patient My Orders Orders - MANUEL MAGALLANES Procedure Category Date Status Time Chest With Contrast CT 07/04/24 Logged 10:07 Furosemide Injection PHA 07/04/24 Verified (Lasix Injection) 18:00 Admit ADMIT 07/04/24 Verified 10:08 Allergies SOPHIE 07/04/24 Verified 10:08 Code Status CODE 07/04/24 Verified 10:08 Hydrocodone-Acet PHA 07/04/24 Verified 5/325mg Tab (Immaculata 10:15 Ondansetron Hcl PHA 07/04/24 Verified (Zofran) 10:15 Complete Blood Count LAB 07/05/24 Verified 04:00 Comprehensive LAB 07/05/24 Verified Metabolic Panel 04:00 Cardiac DIET 07/04/24 Verified Diet-2gna,Lofat,Lochol Lunch Acetaminophen Tablet PHA 07/04/24 Verified (Tylenol Tablet) 10:15 Meropenem 500mg X One PHA 07/04/24 Verified Ivpb 10:15 Meropenem 1gm Q12hr PHA 07/04/24 Verified ([id number]) 22:00 Date of Service: Jul 04, 2024 Billing Provider: MANUEL MAGALLANES Common Visit Codes: [id number] INP/OBS CARE (HIGH) MANUEL MAGALLANES Jul 04, 2024 10:15
[2024-07-04] MEDS: MEROPENEM 1GM IVPB 50 ML IV ONE ×2 (10:39→10:42)
[2024-07-04] MEDS: IOHEXOL 350 MG/ML 100ML IJ ONE (12:05)
--- NOTE | 2024-07-04 12:37 | DVH ---
CTA Chest with intravenous contrast INDICATION: ENLARGED PULMONARY ARTERIES COMPARISON: CT CT ANGIO CHEST CONTRAST on DOS: 06/11/23 TECHNIQUE: Multidetector spiral CTA of the chest was performed of the chest with intravenous contrast . PULMONARY ANGIOGRAPHY PROTOCOL was utilized using a bolus-tracking technique centered on the main p ulmonary artery. Axial, coronal and sagittal multiplanar and MIP reformats were performed. CONTRAST: Type of contrast: Omni 350 Contrast injected: 100 ml Radiation dose : Chest: CTDI volume is 31 mGy. Dose-length product is 558.57 mGy*cm The dose indicators for CT are the volume computed Tomography (CT) dose Index (CTDIvol) and the dose Length product (DLP), and are measured in units of mGy and mGy-cm, respectively. These indicators are not patient dose, but values generated from the CT scanner acquisition factors. The report includes radiation exposure data for exposures received during this examination. Findings: Pulmonary artery: No pulmonary embolism. Marked dilation of the main pulmonary artery suggesting pulmonary arterial hy pertension. Lower neck: Normal thyroid. Lungs: Atelectasis and scarring in the lung bases. Mild patchy ground-glass opacity in both lungs. Heart/Vascular Structures: Normal heart size. No pericardial effusion. Lymph Nodes: No adenopathy Pleura: No pleural effusion or significant pneumothorax. Musculoskeletal: No acute osseous abnormality. Soft tissues: Normal. Upper abdomen: Right renal cyst. IMPRESSION: 1. No pulmonary embolism. Marked dilation of the main pulmonary artery suggesting pulmonary arterial hypertension. 2. Patchy ground-glass opacities in both lungs likely related to subsegmental atelectasis. Superimpos ed infectious or inflammatory process is not excluded. Clinical correlation and continued follow-up is recommended. HS:Y
[2024-07-04] MEDS: ALBUTEROL SULF 2.5 MG/0.5ML(0.5%) NEB SOLN NEB SCH (15:04)
[2024-07-04] MEDS: IPRATROPIUM BROM 0.5 MG/2.5ML INH SOL NEB SCH (15:04)
[2024-07-04] MEDS: SILDENAFIL CITRATE 20 MG TAB PO SCH (15:41)
[2024-07-04] MEDS: DOXYCYCLINE 100MG/100ML 100 ML IV SCH (16:19)
--- NOTE | 2024-07-04 16:51 | DVHCONRES ---
Date Seen: Jul 04, 2024 Resident Creating Document: JERE GEORGE RESIDENT History of Present Illness 73-year-old female with PMHX of pulmonary hypertension, hypertension, COPD on 2 L home oxygen presented the ER with a chief complaint of abdominal pain, which started 3 days back. Patient reports that the abdominal pain is right-sided, radiates to the back and is unrelated to food. Associated symptoms include constipation, last bowel movement was 2/5. Denies nausea/vomiting/diarrhea. GI consulted for abdominal pain. Patient seen and examined in the holding area. Right flank pain. Right flank tenderness. Family History: Alcoholism G8 SISTER, , Cause: Natural of unknown etiology, Not a twin Cardiovascular disease G8 MOTHER, , Cause: Natural of unknown etiology, Not a twin G8 BROTHER, , Cause: Natural of unknown etiology, Not a twin Glaucoma G8 FATHER Ischemic heart disease G8 MOTHER, , Cause: Natural of unknown etiology, Not a twin Allergies: Coded Allergies: Ceftriaxone (Verified Allergy, Intermediate, 12/31/23) RASH COUGH Levofloxacin (Verified Allergy, Unknown, 12/31/23) Home Meds Active Scripts Hydralazine Hcl (Hydralazine Hcl) 10 Mg Tab, 10 MG PO DAILY PRN for 20 Days, #20 TAB Prov:GIOVANY RIBERA RESIDENT 04/12/24 Reported Medications Latanoprost (LATANOPROST) 0.005 % Viktoriya, 1 DROP EACHEYE QPM for GLAUCOMA, #7.5 ML 3 Refills 12/31/23 Dorzolamide-Timolol (Dorzolamide Hcl/Timolol M) 1 Ml Viktoriya, 1 DROP EACHEYE BID, #10 ML 6 Refills 12/31/23 Ytotclnxpkw-Iqwyhfbrubcn-Tzcwz (Trelegy Ellipta 200-62.5-25 Mcg/INH) 1 Aer Aer, 1 AER IN DAILY for COPD, AER 12/31/23 Sildenafil Citrate (SILDENAFIL CITRATE) 20 Mg Tab, 20 MG PO TID for PUL. HTN, TAB 12/31/23 Furosemide (Furosemide) 40 Mg Tab, 1 TAB PO DAILY 07/31/22 Carvedilol (Carvedilol) 25 Mg Tab, 1 TAB PO BID 07/31/22 Ferrous Sulfate (Ferosul) 325 Mg Tab, 1 TAB PO BID 07/31/22 Current Medications Current Medications Medications (Trade) Dose Ordered Sig/Kristen Route PRN Reason Start Time Stop Time Status Last Admin Furosemide (Lasix Injection) 40 mg BIDD IV 07/04/24 18:00 Acetaminophen/ Hydrocodone Bitart ([place] 5/325MG Tab) 1 tab Q4HP PRN PO MODERATE PAIN (4-6 PAIN SCALE) 07/04/24 10:15 Ondansetron HCl (Zofran) 4 mg Q4HP PRN IV NAUSEA / VOMITING 07/04/24 10:15 Acetaminophen (Tylenol Tablet) 650 mg Q6HP PRN PO PAIN SCALE 1-3 OR TEMP>100.4 07/04/24 10:15 Meropenem 50 ml @ 17 mls/hr Q12HR IV 07/04/24 22:00 Albuterol (Ventolin Medneb) 2.5 mg Q4HWA NEB 07/04/24 14:00 07/04/24 15:04 Albuterol (Ventolin Medneb) 2.5 mg Q2HPRN PRN NEB SHORTNESS OF BREATH 07/04/24 10:15 Ipratropium [place] (Atrovent Medneb) 0.5 mg Q4HWA NEB 07/04/24 14:00 07/04/24 15:04 Ipratropium [place] (Atrovent Medneb) 0.5 mg Q2HPRN PRN NEB SHORTNESS OF BREATH 07/04/24 10:15 Latanoprost (Xalatan) 1 drop QPM EACHEYE 07/04/24 18:00 Sildenafil Citrate (Revatio) 20 mg TID PO 07/04/24 14:00 07/04/24 15:41 Carvedilol (Coreg Tablet) 12.5 mg BID PO 07/04/24 22:00 Patient Own Medication 1 drop BID EACHEYE 07/04/24 22:00 Ferrous Sulfate 325 mg BID PO 07/04/24 22:00 Budesonide (Pulmicort) 0.5 mg BID NEB 07/04/24 22:00 Doxycycline Hyclate 100 ml @ 50 mls/hr Q12H IV 07/04/24 15:45 07/04/24 16:19 Pantoprazole Sodium (Protonix) 40 mg DAILY IV 07/05/24 10:00 Lactulose 30 ml DAILY PO 07/05/24 10:00 Review of Systems Eyes: No Pain, No Vision change, No Conjunctivae inflammation, No Eyelid inflammation, No Other, No Redness ENT: No Ear pain, No Ear discharge, No Nose pain, No Nose discharge, No Nose c ongestion, No Mouth pain, No Mouth swelling, No Throat pain, No Throat swelling, No Other Cardiovascular: No Chest Pain, No Palpitations, No Orthopnea, No PND, No Edema, No Lt Headedness, No Other Respiratory: No Cough, No Dry, No Shortness of breath, No SOB with exertion, No Wheezing, No Hemoptysis, No Pleuritic Pain, No Sputum, No Other Gastrointestinal: Reports abdominal pain, denies nausea, vomiting, diarrhea Genitourinary: No Dysuria, No Frequency, No Incontinence, No Hematuria, No Retention, No Other Musculoskeletal: No other, No neck pain, No shoulder pain, No arm pain, No back pain, No hand pain, No leg pain, No foot pain Skin: No Rash, No Lesions, No Jaundice, No Bruising, No Other Vital Signs Vital Signs Date Time Temp Pulse Resp B/P (MAP) Pulse Ox O2 Delivery O2 Flow Rate FiO2 07/04/24 15:10 87 18 98 07/04/24 15:04 Nasal Cannula 2.0 07/04/24 15:04 28 07/04/24 11:17 97.5 122/53 97.5 Labs/Diagnostic Data Labs Test 07/04/24 00:24 07/03/24 23:12 Range/Units Troponin I High Sensitivity 20 </=34 ng/L White Blood Count 11.1 H 4.4-10.8 10^3/uL Red Blood Count 4.54 4.0-5.20 10^6/uL Hemoglobin 12.9 12.2-16.2 g/dL Hematocrit 39.5 36.0-46.0 % Mean Corpuscular Volume 87.0 80.0-100.0 fL Mean Corpuscular Hemoglobin 28.5 28.0-32.0 pg Mean Corpuscular Hemoglobin Concent 32.7 32.0-36.0 g/dL Red Cell Distribution Width 14.6 H 11.8-14.3 % Platelet Count 286 140-450 10^3/uL Mean Platelet Volume 8.6 6.9-10.8 fL Neutrophils (%) (Auto) 67.9 37.0-80.0 % Lymphocytes (%) (Auto) 20.8 10.0-50.0 % Monocytes (%) (Auto) 9.3 0.0-12.0 % Eosinophils (%) (Auto) 1.4 0.0-7.0 % Basophils (%) (Auto) 0.6 0.0-2.0 % Neutrophils # (Auto) 7.6 1.6-8.6 10 ^3/uL Lymphocytes # (Auto) 2.3 0.4-5.4 10 ^3/uL Monocytes # (Auto) 1.0 0-1.3 10 ^3/uL Eosinophils # (Auto) 0.2 0-0.8 10 ^3/uL Basophils # (Auto) 0.1 0-0.2 10 ^3/uL Nucleated Red Blood Cells 0.0 % Urine Color Yellow Yellow Urine Clarity Clear Clear Urine pH 5.5 5.0-9.0 Urine Specific [place] 1.018 1.001-1.035 Urine Protein 2+ H Negative Urine Ketones Negative Negative Urine Blood Negative Negative /uL Urine Nitrite Negative Negative Urine Bilirubin Negative Negative Urine Urobilinogen Normal Negative mg/dL Urine Leukocyte Esterase 1+ Negative /uL Urine RBC <1 0 - 4 /hpf Urine Microscopic WBC 4 0-5 /HPF Urine Squamous Epithelial Cells Few <5 /hpf Urine Bacteria None seen None Seen /hpf Urine Hyaline Casts Few 0 - 2 /lpf Urine Mucus Few None Seen Urine Glucose Normal Normal mg/dL Sodium Level 136 136-145 mmol/L Potassium Level 4.0 3.5-5.1 mmol/L Chloride Level 101 98-107 mmol/L Carbon Dioxide Level 26 20-31 mmol/L Anion Gap 9 5-15 Blood Urea Nitrogen 19 9-23 mg/dL Creatinine 1.18 H 0.550-1.02 mg/dL Glomerular Filtration Rate Calc 49 >90 mL/min BUN/Creatinine Ratio 16.1 10.0-20.0 Serum Glucose 115 H 74-106 mg/dL Lactic Acid Level 0.9 0.4-2.0 mmol/L Calcium Level 10.1 8.7-10.4 mg/dL Total Bilirubin 0.5 0.2-1.0 mg/dL Aspartate Amino Transferase (AST) 31 13-40 U/L Alanine Aminotransferase (ALT) 23 7-40 U/L Alkaline Phosphatase 131 H 46-116 U/L B-Type Natriuretic Peptide 526.22 0-100 pg/mL Total Protein 7.3 5.7-8.2 g/dL Albumin 4.6 3.2-4.8 g/dL Lipase 30 12-53 U/L Assessment Right-sided abdominal pain Constipation Transaminitis COPD on 2 L home oxygen Pulmonary hypertension Hypertension Plan: Follow up with liver ultrasound and LFTs One dose of MiraLax 17 g oral Lactulose 30 mL p.o. daily Diet, soft diet Case discussed with Dr. Drummond Plan discussed with: Patient JERE GEORGE RESIDENT Jul 04, 2024 16:51
[2024-07-04] MEDS: FUROSEMIDE 40 MG/4 ML VIAL IV SCH (17:34)
[2024-07-04] MEDS: LATANOPROST 0.005 % OPTH(EYE) SOL 2.5ML EACHEYE SCH (18:00)
[2024-07-04] MEDS: POLYETHYLENE GLYCOL 17 GM PWDR PO ONE (18:14)
[2024-07-04] MEDS: TIMOLOL EACHEYE SCH (22:00)
[2024-07-04] MEDS: MEROPENEM 1GM IVPB 50 ML IV SCH (22:00)
[2024-07-04] MEDS: DORZOLAMIDE EACHEYE SCH (22:00)
[2024-07-04] MEDS: FERROUS SULFATE 325mg EC TAB PO SCH (22:05)
[2024-07-04] MEDS: CARVEDILOL 12.5 MG TAB PO SCH (22:16)
[2024-07-04] MEDS: BUDESONIDE (INHALATION) 0.5 MG/2 ML NEB NEB SCH (23:00)
[2024-07-05] VITALS (15 sets, daily range): BP systolic 104–142; BP diastolic 52–80; PULSE 61–82; RESP 14–20; TEMP 97.3–98.1; O2SAT 91–100
--- NOTE | 2024-07-05 08:17 | DVH ---
INDICATION: R/O gall stones TECHNIQUE: Multiple real-time sonographic images of the abdomen were obtained. COMPARISON: None FINDINGS: The liver is homogenous in echogenicity. The liver measures 13.8 cm cm. No intrahepatic bi liary ductal dilatation is noted. The gallbladder wall measures 0.1 cm and is unremarkable. No gallstones or sludge is seen. The com mon duct measures 0.4 cm and is unremarkable. No pericholecystic fluid is noted. Negative sonographi c nichole's sign. The right kidney measures 11.5 cm. No hydronephrosis. There is a cyst in the kidney measuring 4.2 x 4.1 x 3.4 cm. The left kidney measures 9.8 cm. No hydronephrosis. The pancreas is not well visualized due to obscuration from bowel gas. The visualized portions of the IVC and aorta are grossly unremarkable. IMPRESSION: 1. No gallstones. No acute finding. 2. Right cortical renal cyst.
[2024-07-05 09:24] LABS: Basophils # (auto) 0 10 ^3/uL (0-0.2); Basophils % (auto) 0.2 % (0.0-2.0); Eosinophils # (auto) 0 10 ^3/uL (0-0.8); Hematocrit 41.9 % (36.0-46.0); Hemoglobin 13.4 g/dL (12.2-16.2); Lymphocytes # (auto) 1.3 10 ^3/uL (0.4-5.4); Lymphocytes % (auto) 9.3 % (10.0-50.0); Mean Corpuscular Hemoglobin 28.2 pg (28.0-32.0); Mean Corpuscular Hgb Conc. 32.1 g/dL (32.0-36.0); Mean Corpuscular Volume 87.9 fL (80.0-100.0); Monocytes # (auto) 1.4 10 ^3/uL (0-1.3); Monocytes % (auto) 9.7 % (0.0-12.0); Neutrophils # (auto) 11.6 10 ^3/uL (1.6-8.6); Neutrophils % (auto) 80.8 % (37.0-80.0); Nucleated Red Blood Cells % 0.1 %; Platelet Count (auto) 266 10^3/uL (140-450); Red Blood Cells 4.76 10^6/uL (4.0-5.20); Red Cell Distribution Width 14.6 % (11.8-14.3); White Blood Cell 14.3 10^3/uL (4.4-10.8)
[2024-07-05 09:45] LABS: Alanine Aminotransferase 17 U/L (7-40); Albumin 4.5 g/dL (3.2-4.8); Anion Gap 9 (5-15); Aspartate Aminotransferase 20 U/L (13-40); BUN/Creatinine Ratio 23.4 (10.0-20.0); Bilirubin, Total 0.5 mg/dL (0.2-1.0); Blood Urea Nitrogen 22 mg/dL (9-23); Calcium 9.5 mg/dL (8.7-10.4); Chloride 99 mmol/L (98-107); Glucose 105 mg/dL (74-106); Potassium 3.8 mmol/L (3.5-5.1); Sodium 139 mmol/L (136-145)
[2024-07-05 09:46] LABS: Alkaline Phosphatase 119 U/L (46-116); Carbon Dioxide 31 mmol/L (20-31); Total Protein 7.2 g/dL (5.7-8.2)
[2024-07-05] MEDS: LACTULOSE 20Gm/30ML SOLN PO SCH (10:40)
[2024-07-05] MEDS: PANTOPRAZOLE 40 MG/10 ML VIAL INJ IV SCH (10:41)
--- NOTE | 2024-07-05 13:21 | DVHPN2 ---
Changes from previous H/P or p: No Changes Eyes: No Pain, No Vision change, No Conjunctivae inflammation, No Eyelid inflammation, No Other, No Redness ENT: No Ear pain, No Ear discharge, No Nose pain, No Nose discharge, No Nose congestion, No Mouth pain, No Mouth swelling, No Throat pain, No Throat swelling, No Other Cardiovascular: No Chest Pain, No Palpitations, No Orthopnea, No Paroxysmal Noc. Dyspnea; Edema; No Lt Headedness, No Other Respiratory: Shortness of breath Gastrointestinal: No Nausea, No Vomiting; Abdominal Pain; No Diarrhea, No Constipation, No Melena, No Hematochezia, No Other Genitourinary: No Dysuria, No Frequency, No Incontinence, No Hematuria, No Retention, No Other Musculoskeletal: No other, No neck pain, No shoulder pain, No arm pain, No back pain, No hand pain, No leg pain, No foot pain Skin: No Rash, No Lesions, No Jaundice, No Bruising, No Other Objective Vitals Vital Signs Date Time Temp Pulse Resp B/P (MAP) Pulse Ox O2 Delivery O2 Flow Rate FiO2 07/05/24 11:40 68 104/52 07/05/24 09:52 16 100 07/05/24 09:46 Nasal Cannula* 2 28 07/05/24 09:03 98.1 98.1 Intake/Output Intake and Output 07/05/24 07:00 Intake Total 50 ml Balance 50 ml Intake IV Total 50 ml Medications Current Medications Medications Dose Ordered Sig/Kristen Route Start Time Stop Time Status Last Admin Dose Admin Furosemide 40 mg BIDD IV 07/04/24 18:00 07/05/24 06:22 40 MG Acetaminophen/ Hydrocodone Bitart 1 tab Q4HP PRN PO 07/04/24 10:15 Ondansetron HCl 4 mg Q4HP PRN IV 07/04/24 10:15 Acetaminophen 650 mg Q6HP PRN PO 07/04/24 10:15 Meropenem 50 ml @ 17 mls/hr Q12HR IV 07/04/24 22:00 07/05/24 10:55 17 MLS/HR Albuterol 2.5 mg Q4HWA NEB 07/04/24 14:00 07/05/24 09:45 2.5 MG Albuterol 2.5 mg Q2HPRN PRN NEB 07/04/24 10:15 Ipratropium [place] 0.5 mg Q4HWA [facility] 07/04/24 14:00 07/05/24 09:46 0.5 MG Ipratropium [place] 0.5 mg Q2HPRN PRN [facility] 07/04/24 10:15 Latanoprost 1 drop QPM EACHEYE 07/04/24 18:00 Sildenafil Citrate 20 mg TID PO 07/04/24 14:00 07/05/24 06:21 20 MG Carvedilol 12.5 mg BID PO 07/04/24 22:00 07/05/24 10:41 12.5 MG Patient Own Medication 1 drop BID EACHEYE 07/04/24 22:00 Ferrous Sulfate 325 mg BID PO 07/04/24 22:00 07/05/24 10:40 325 MG Budesonide 0.5 mg BID NEB 07/04/24 22:00 07/05/24 07:46 0.5 MG Doxycycline Hyclate 100 ml @ 50 mls/hr Q12H IV 07/04/24 15:45 07/04/24 23:29 50 MLS/HR Pantoprazole Sodium 40 mg DAILY IV 07/05/24 10:00 07/05/24 10:41 40 MG Lactulose 30 ml DAILY PO 07/05/24 10:00 07/05/24 10:40 30 ML Laboratory Results Laboratory Tests 07/05/24 08:45 Chemistry Test 07/05/24 08:45 Albumin 4.5 g/dL (3.2-4.8) Calcium Level 9.5 mg/dL (8.7-10.4) Total Protein 7.2 g/dL (5.7-8.2) LFT Test 07/05/24 08:45 Alanine Aminotransferase (ALT) 17 U/L (7-40) Alkaline Phosphatase 119 U/L (46-116) H Aspartate Amino Transferase (AST) 20 U/L (13-40) Total Bilirubin 0.5 mg/dL (0.2-1.0) Urinalysis Test 07/03/24 23:12 Urine Color Yellow (Yellow) Urine Clarity Clear (Clear) Urine pH 5.5 (5.0-9.0) Urine Specific [place] 1.018 (1.001-1.035) Urine Protein 2+ (Negative) H Urine Ketones Negative (Negative) Urine Blood Negative /uL (Negative) Urine Nitrite Negative (Negative) Urine Bilirubin Negative (Negative) Urine Urobilinogen Normal mg/dL (Negative) Urine Leukocyte Esterase 1+ /uL (Negative) Urine RBC <1 /hpf (0 - 4) Urine Microscopic WBC 4 /HPF (0-5) Urine Squamous Epithelial Cells Few /hpf (<5) Urine Bacteria None seen /hpf (None Seen) Urine Hyaline Casts Few /lpf (0 - 2) Urine Mucus Few (None Seen) Urine Glucose Normal mg/dL (Normal) Labs and/or images reviewed: Labs reviewed by me, Image(s) reviewed by me Assessment/Plan Assessment/Plan Acute abdominal pain: CT abdomen pelvis without contrast negative Bilateral pneumonia: Doxycycline meropenem albuterol Atrovent Solu-Medrol Acute COPD exacerbation Acute CHF exacerbation Pulmonary hypertension Hypertensive urgency History of CAD Constipation Transaminitis Hypercholesterolemia Rheumatoid arthritis History of gout Time Spent 65 minutes Condition guarded Patient is full code Advanced care planning time 20 minutes Plan discussed with: Patient Date of Service: Jul 05, 2024 Billing Provider: XIOMARA MARKS MD Common Visit Codes: [id number] CARE 30-74 MIN XIOMARA MARKS MD Jul 05, 2024 13:21
--- NOTE | 2024-07-05 15:10 | DVHPN2 ---
Progress Note Date Seen: Jul 05, 2024 Resident Creating Document: JERE GEORGE RESIDENT Medical Necessity Reason Pt with a Central, PICC or Fol: No Subjective Review of Systems 73-year-old female with PMHX of pulmonary hypertension, hypertension, COPD on 2 L home oxygen presented the ER with a chief complaint of abdominal pain, which started 3 days back. Patient reports that the abdominal pain is right-sided, radiates to the back and is unrelated to food. Associated symptoms include constipation, last bowel movement was 2/5. Denies nausea/vomiting/diarrhea. GI consulted for abdominal pain. Patient seen and examined at the bedside. Reports feeling better. Objective vital signs Vital Sign Date Time Temp Pulse Resp B/P (MAP) Pulse Ox O2 Delivery O2 Flow Rate FiO2 07/05/24 14:53 63 16 99 07/05/24 14:47 Nasal Cannula 2.0 07/05/24 14:47 28 07/05/24 11:40 104/52 07/05/24 09:03 98.1 98.1 Total Intake and Output 07/04/24 07/04/24 07/05/24 15:00 23:00 07:00 Intake Total 50 ml Balance 50 ml medications Current Medications Medications Dose Ordered Sig/Kristen Route Start Time Stop Time Status Last Admin Dose Admin Furosemide 40 mg BIDD IV 07/04/24 18:00 07/05/24 06:22 40 MG Acetaminophen/ Hydrocodone Bitart 1 tab Q4HP PRN PO 07/04/24 10:15 Ondansetron HCl 4 mg Q4HP PRN IV 07/04/24 10:15 Acetaminophen 650 mg Q6HP PRN PO 07/04/24 10:15 Meropenem 50 ml @ 17 mls/hr Q12HR IV 07/04/24 22:00 07/05/24 10:55 17 MLS/HR Albuterol 2.5 mg Q4HWA NEB 07/04/24 14:00 07/05/24 14:46 2.5 MG Albuterol 2.5 mg Q2HPRN PRN NEB 07/04/24 10:[address] 0.5 mg Q4HWA NEB 07/04/24 14:00 07/05/24 14:[address] 0.5 mg Q2HPRN PRN NEB 07/04/24 10:15 Latanoprost 1 drop QPM EACHEYE 07/04/24 18:00 Sildenafil Citrate 20 mg TID PO 07/04/24 14:00 07/05/24 15:04 20 MG Carvedilol 12.5 mg BID PO 07/04/24 22:00 07/05/24 10:41 12.5 MG Patient Own Medication 1 drop BID EACHEYE 07/04/24 22:00 Ferrous Sulfate 325 mg BID PO 07/04/24 22:00 07/05/24 10:40 325 MG Budesonide 0.5 mg BID NEB 07/04/24 22:00 07/05/24 07:46 0.5 MG Doxycycline Hyclate 100 ml @ 50 mls/hr Q12H IV 07/04/24 15:45 07/04/24 23:29 50 MLS/HR Pantoprazole Sodium 40 mg DAILY IV 07/05/24 10:00 07/05/24 10:41 40 MG Lactulose 30 ml DAILY PO 07/05/24 10:00 07/05/24 10:40 30 ML Examination Patient lying in bed, in no acute distress General: Well-built, afebrile, palor, mucosae are moist Cardiovascular: Regular S1 and S2. No murmurs, gallops or rubs. No JVD elevation. No pedal edema Respiratory: Normal B/L air entry on room air. Clear lung sounds on auscultation Abdomen: Soft, nontender, nondistended, normoactive bowel sounds, no rebound tenderness, no organomegaly, no masses Genitourinary: Deferred MSK/skin: Mobilizes 4 limbs. Skin is dry and warm Neurological: No motor, no sensitive deficits, normal speech. Pupils are isocoric and reactive. Psych/Mental Status: A/Ox3 laboratory and microbiology Laboratory Tests 07/05/24 08:45 Test 07/05/24 08:45 Range/Units Serum Glucose 105 74-106 mg/dL Labs and/or images reviewed: Labs reviewed by me, Image(s) reviewed by me Problem List/Assessment/Plan Problem List/Assessment/Plan Right-sided abdominal pain likely musculoskeletal versus pneumonia ? Pneumonia Constipation Transaminitis COPD on 2 L home oxygen Pulmonary hypertension Hypertension Plan: Liver ultrasound unremarkable. Right cortical renal cyst. Given the negative abdominal CT scan, negative liver ultrasound, based on clinical findings, patient's abdominal pain is likely secondary to pneumonia versus musculoskeletal. No GI intervention is required at this time. Lactulose 30 mL p.o. daily Diet, soft diet Case discussed with Dr. Drummond Plan discussed with: Patient My Orders My Orders Orders - JERE GEORGE Procedure Category Date Status Time Lactulose Oral PHA 07/05/24 In Process 10:00 LIVER US 07/05/24 Resulted 07:00 JERE GEORGE Jul 05, 2024 15:10
[2024-07-06] VITALS (17 sets, daily range): BP systolic 114–152; BP diastolic 63–83; PULSE 58–74; RESP 14–20; TEMP 97.4–98; O2SAT 91–100
--- NOTE | 2024-07-06 10:09 | DVHPN2 ---
Changes from previous H/P or p: No Changes Eyes: No Pain, No Vision change, No Conjunctivae inflammation, No Eyelid inflammation, No Other, No Redness ENT: No Ear pain, No Ear discharge, No Nose pain, No Nose discharge, No Nose congestion, No Mouth pain, No Mouth swelling, No Throat pain, No Throat swelling, No Other Cardiovascular: No Chest Pain, No Palpitations, No Orthopnea, No Paroxysmal Noc. Dyspnea; Edema; No Lt Headedness, No Other Respiratory: Shortness of breath Gastrointestinal: No Nausea, No Vomiting; Abdominal Pain; No Diarrhea, No Constipation, No Melena, No Hematochezia, No Other Genitourinary: No Dysuria, No Frequency, No Incontinence, No Hematuria, No Retention, No Other Musculoskeletal: No other, No neck pain, No shoulder pain, No arm pain, No back pain, No hand pain, No leg pain, No foot pain Skin: No Rash, No Lesions, No Jaundice, No Bruising, No Other Objective Vitals Vital Signs Date Time Temp Pulse Resp B/P (MAP) Pulse Ox O2 Delivery O2 Flow Rate FiO2 07/06/24 09:25 74 147/83 07/06/24 09:00 97.4 18 91 97.4 07/06/24 07:16 Nasal Cannula 2.0 07/06/24 07:16 28 Intake/Output Intake and Output 07/06/24 07:00 Intake Total 300 ml Balance 300 ml Intake IV Total 300 ml Medications Current Medications Medications Dose Ordered Sig/Kristen Route Start Time Stop Time Status Last Admin Dose Admin Furosemide 40 mg BIDD IV 07/04/24 18:00 07/06/24 05:19 40 MG Acetaminophen/ Hydrocodone Bitart 1 tab Q4HP PRN PO 07/04/24 10:15 Ondansetron HCl 4 mg Q4HP PRN IV 07/04/24 10:15 Acetaminophen 650 mg Q6HP PRN PO 07/04/24 10:15 Meropenem 50 ml @ 17 mls/hr Q12HR IV 07/04/24 22:00 07/06/24 09:24 17 MLS/HR Albuterol 2.5 mg Q4HWA NEB 07/04/24 14:00 07/06/24 07:16 2.5 MG Albuterol 2.5 mg Q2HPRN PRN NEB 07/04/24 10:15 Ipratropium [place] 0.5 mg Q4HWA NEB 07/04/24 14:00 07/06/24 07:16 0.5 MG Ipratropium [place] 0.5 mg Q2HPRN PRN NEB 07/04/24 10:15 Latanoprost 1 drop QPM EACHEYE 07/04/24 18:00 Sildenafil Citrate 20 mg TID PO 07/04/24 14:00 07/06/24 05:19 20 MG Carvedilol 12.5 mg BID PO 07/04/24 22:00 07/06/24 09:25 12.5 MG Patient Own Medication 1 drop BID EACHEYE 07/04/24 22:00 Ferrous Sulfate 325 mg BID PO 07/04/24 22:00 07/06/24 09:25 325 MG Budesonide 0.5 mg BID NEB 07/04/24 22:00 07/06/24 07:16 0.5 MG Doxycycline Hyclate 100 ml @ 50 mls/hr Q12H IV 07/04/24 15:45 07/06/24 04:09 50 MLS/HR Pantoprazole Sodium 40 mg DAILY IV 07/05/24 10:00 07/06/24 09:24 40 MG Lactulose 30 ml DAILY PO 07/05/24 10:00 07/06/24 09:24 30 ML Laboratory Results Laboratory Tests 07/05/24 08:45 Urinalysis Test 07/03/24 23:12 Urine Color Yellow (Yellow) Urine Clarity Clear (Clear) Urine pH 5.5 (5.0-9.0) Urine Specific [place] 1.018 (1.001-1.035) Urine Protein 2+ (Negative) H Urine Ketones Negative (Negative) Urine Blood Negative /uL (Negative) Urine Nitrite Negative (Negative) Urine Bilirubin Negative (Negative) Urine Urobilinogen Normal mg/dL (Negative) Urine Leukocyte Esterase 1+ /uL (Negative) Urine RBC <1 /hpf (0 - 4) Urine Microscopic WBC 4 /HPF (0-5) Urine Squamous Epithelial Cells Few /hpf (<5) Urine Bacteria None seen /hpf (None Seen) Urine Hyaline Casts Few /lpf (0 - 2) Urine Mucus Few (None Seen) Urine Glucose Normal mg/dL (Normal) Labs and/or images reviewed: Labs reviewed by me, Image(s) reviewed by me Assessment/Plan Assessment/Plan Acute abdominal pain: CT abdomen pelvis without contrast negative Bilateral pneumonia: Doxycycline meropenem albuterol Atrovent Solu-Medrol Possible musculoskeletal pain Acute COPD exacerbation Acute CHF exacerbation Pulmonary hypertension Hypertensive urgency History of CAD Constipation Liver ultrasound negative PE ruled out Transaminitis Hypercholesterolemia Rheumatoid arthritis History of gout History of pneumonia COVID and flu two months ago Will check rapid flu test and COVID Time Spent 55 minutes Condition guarded Patient is full code Patient lives alone in [place] Daughter Nieves [phone] is her caregiver Advanced care planning time 20 minutes Plan discussed with: Patient Date of Service: Jul 06, 2024 Billing Provider: XIOMARA MARKS MD Common Visit Codes: [id number] INP/OBS CARE(HIGH) XIOMARA MARKS MD Jul 06, 2024 10:09
[2024-07-06 14:12] LABS: COVID19 ANTIGEN SOFIA FIA NEGATIVE (NEGATIVE); Rapid Influenza A Negative (Negative); Rapid Influenza B Negative (Negative)
--- NOTE | 2024-07-06 19:04 | DVHPN2 ---
Progress Note - Dictate Date Seen: Jul 06, 2024 Medical Necessity Reason Pt with a Central, PICC or Fol: No Subjective No new complaints Ambulating and tolerating diet Rapid flu and covid negative vital signs Vital Sign Date Time Temp Pulse Resp B/P (MAP) Pulse Ox O2 Delivery O2 Flow Rate FiO2 07/06/24 17:00 97.5 66 20 138/77 (97) 96 97.5 07/06/24 16:04 Nasal Cannula 2.0 07/06/24 16:04 28 Total Intake and Output 07/05/24 07/05/24 07/06/24 15:00 23:00 07:00 Intake Total 50 ml 150 ml Balance 50 ml 150 ml medications Current Medications Medications Dose Ordered Sig/Kristen Route Start Time Stop Time Status Last Admin Dose Admin Furosemide 40 mg BIDD IV 07/04/24 18:00 07/06/24 05:19 40 MG Acetaminophen/ Hydrocodone Bitart 1 tab Q4HP PRN PO 07/04/24 10:15 Ondansetron HCl 4 mg Q4HP PRN IV 07/04/24 10:15 Acetaminophen 650 mg Q6HP PRN PO 07/04/24 10:15 Meropenem 50 ml @ 17 mls/hr Q12HR IV 07/04/24 22:00 07/06/24 09:24 17 MLS/HR Albuterol 2.5 mg Q4HWA NEB 07/04/24 14:00 07/06/24 18:54 2.5 MG Albuterol 2.5 mg Q2HPRN PRN NEB 07/04/24 10:15 Ipratropium [place] 0.5 mg Q4HWA NEB 07/04/24 14:00 07/06/24 18:54 0.5 MG Ipratropium [place] 0.5 mg Q2HPRN PRN NEB 07/04/24 10:15 Latanoprost 1 drop QPM EACHEYE 07/04/24 18:00 Sildenafil Citrate 20 mg TID PO 07/04/24 14:00 07/06/24 13:58 20 MG Carvedilol 12.5 mg BID PO 07/04/24 22:00 07/06/24 09:25 12.5 MG Patient Own Medication 1 drop BID EACHEYE 07/04/24 22:00 Ferrous Sulfate 325 mg BID PO 07/04/24 22:00 07/06/24 09:25 325 MG Budesonide 0.5 mg BID NEB 07/04/24 22:00 07/06/24 18:54 0.5 MG Doxycycline Hyclate 100 ml @ 50 mls/hr Q12H IV 07/04/24 15:45 07/06/24 15:36 50 MLS/HR Pantoprazole Sodium 40 mg DAILY IV 07/05/24 10:00 07/06/24 09:24 40 MG Lactulose 30 ml DAILY PO 07/05/24 10:00 07/06/24 09:24 30 ML laboratory and microbiology Laboratory Tests 07/05/24 08:45 Test 07/05/24 08:45 Range/Units Serum Glucose 105 74-106 mg/dL Problems(with codes): (1) CHF exacerbation (2) COPD exacerbation (3) Abdominal pain Prognosis A/P Liver ultrasound unremarkable. Right cortical renal cyst. Given the negative abdominal CT scan, negative liver ultrasound, based on clinical findings, \ patient's abdominal pain is likely secondary to pneumonia versus musculoskeletal. No GI intervention is required at this time. On IV Abx; Lactulose 30 mL p.o. daily or prn for constipation MiraLax 17 g p.o. x1 dose today Discharge planning as per hospitalist Plan discussed with: Other (Dr Licea) HANSA OLMOS MD Jul 06, 2024 19:04
[2024-07-06] MEDS: POLYETHYLENE GLYCOL 17 GM PWDR PO ONE (19:15)
[2024-07-07] VITALS (13 sets, daily range): BP systolic 136–153; BP diastolic 85–92; PULSE 64–90; RESP 15–20; TEMP 97.5–98; O2SAT 92–100
--- NOTE | 2024-07-07 10:55 | DVHDS2 ---
Discharge Summary Date of Admission Jul 04, 2024 at 10:08 Date of Discharge: Jul 07, 2024 Admitting Diagnosis Shortness of breaths and abdominal pain Wounds: None Labs/Diagnostic Data: Laboratory Results Test 07/06/24 13:41 07/05/24 08:45 07/04/24 00:24 07/03/24 23:12 Influenza Type A Antigen Negative (Negative) Influenza Type B Antigen Negative (Negative) SARS-CoV-2 Antigen (Rapid) Negative (NEGATIVE) White Blood Count 14.3 10^3/uL (4.4-10.8) Red Blood Count 4.76 10^6/uL (4.0-5.20) Hemoglobin 13.4 g/dL (12.2-16.2) Hematocrit 41.9 % (36.0-46.0) Mean Corpuscular Volume 87.9 fL (80.0-100.0) Mean Corpuscular Hemoglobin 28.2 pg (28.0-32.0) Mean Corpuscular Hemoglobin Concent 32.1 g/dL (32.0-36.0) Red Cell Distribution Width 14.6 % (11.8-14.3) Platelet Count 266 10^3/uL (140-450) Mean Platelet Volume 8.7 fL (6.9-10.8) Neutrophils (%) (Auto) 80.8 % (37.0-80.0) Lymphocytes (%) (Auto) 9.3 % (10.0-50.0) Monocytes (%) (Auto) 9.7 % (0.0-12.0) Eosinophils (%) (Auto) 0.0 % (0.0-7.0) Basophils (%) (Auto) 0.2 % (0.0-2.0) Neutrophils # (Auto) 11.6 10 ^3/uL (1.6-8.6) Lymphocytes # (Auto) 1.3 10 ^3/uL (0.4-5.4) Monocytes # (Auto) 1.4 10 ^3/uL (0-1.3) Eosinophils # (Auto) 0 10 ^3/uL (0-0.8) Basophils # (Auto) 0 10 ^3/uL (0-0.2) Nucleated Red Blood Cells 0.1 % Sodium Level 139 mmol/L (136-145) Potassium Level 3.8 mmol/L (3.5-5.1) Chloride Level 99 mmol/L (98-107) Carbon Dioxide Level 31 mmol/L (20-31) Anion Gap 9 (5-15) Blood Urea Nitrogen 22 mg/dL (9-23) Creatinine 0.94 mg/dL (0.550-1.02) Glomerular Filtration Rate Calc 65 mL/min (>90) BUN/Creatinine Ratio 23.4 (10.0-20.0) Serum Glucose 105 mg/dL (74-106) Calcium Level 9.5 mg/dL (8.7-10.4) Total Bilirubin 0.5 mg/dL (0.2-1.0) Aspartate Amino Transferase (AST) 20 U/L (13-40) Alanine Aminotransferase (ALT) 17 U/L (7-40) Alkaline Phosphatase 119 U/L (46-116) Total Protein 7.2 g/dL (5.7-8.2) Albumin 4.5 g/dL (3.2-4.8) Troponin I High Sensitivity 20 ng/L (</=34) Urine Color Yellow (Yellow) Urine Clarity Clear (Clear) Urine pH 5.5 (5.0-9.0) Urine Specific [place] 1.018 (1.001-1.035) Urine Protein 2+ (Negative) Urine Ketones Negative (Negative) Urine Blood Negative /uL (Negative) Urine Nitrite Negative (Negative) Urine Bilirubin Negative (Negative) Urine Urobilinogen Normal mg/dL (Negative) Urine Leukocyte Esterase 1+ /uL (Negative) Urine RBC <1 /hpf (0 - 4) Urine Microscopic WBC 4 /HPF (0-5) Urine Squamous Epithelial Cells Few /hpf (<5) Urine Bacteria None seen /hpf (None Seen) Urine Hyaline Casts Few /lpf (0 - 2) Urine Mucus Few (None Seen) Urine Glucose Normal mg/dL (Normal) Lactic Acid Level 0.9 mmol/L (0.4-2.0) B-Type Natriuretic Peptide 526.22 pg/mL (0-100) Lipase 30 U/L (12-53) Other Laboratory Tests 07/05/24 08:45 Brief Hx & Hospital Course: 73-year-old female with a history of COVID and flu pneumonia in the past came in complaining of shortness of breaths and abdominal pain. CT abdomen pelvis is negative. Chest x-ray showed bilateral community-acquired pneumonia treated with the doxycycline and meropenem albuterol Atrovent and Solu-Medrol. Patient has a history of COPD CHF pulmonary hypertension coronary artery disease. Liver ultrasound was negative PE ruled out flu test negative COVID test negative history of gout and rheumatoid arthritis takes infusion once in three months by Dr. Pacheco The patient being discharged to halfway facility for three weeks of IV antibiotics for pneumonia. The son Linus and the plan is acceptable to him and the patient. Consults/Reason for consult GI Dr. Pao Drummond Operations or Procedures CT abdomen pelvis without contrast Condition at Discharge: Fair Final Diagnosis/Problems List Acute abdominal pain: CT abdomen pelvis without contrast negative Bilateral pneumonia: Doxycycline meropenem albuterol Atrovent Solu-Medrol Possible musculoskeletal pain Acute COPD exacerbation Acute CHF exacerbation Pulmonary hypertension Hypertensive urgency History of CAD Constipation Liver ultrasound negative PE ruled out Transaminitis Hypercholesterolemia Rheumatoid arthritis History of gout [facility]charge [facility] Discharge Instruct/Medications Diet: Cardiac 2g Na,low cholest Activity: Light activity Follow Up/Referral: Follow up with the [facility] Medications: Rocephin 1 g IV daily for three weeks Meropenem 1 g IV q.8 hours for three weeks Both for pneumonia 39 (Time taken for discharge summary 39 minutes) Discharge Statement: "Patient was advised to return to the ER or call 911 if any headaches, dizziness, shortness of breath, chest pain, abdominal pain, bleeding, fevers, or worsening of medical condition. Patient was counseled about treatment plan, medications, possible side effects, patientverbalized understanding. All questions were answered to the best of my ability. This discharge took greater then 30 minutes in planning, reviewing documentation, counseling the patient, and discussing with other team members." ASSESSMENT ASSESSMENT Hospital Course Improved Assessment Acute abdominal pain: CT abdomen pelvis without contrast negative Bilateral pneumonia: Doxycycline meropenem albuterol Atrovent Solu-Medrol Possible musculoskeletal pain Acute COPD exacerbation Acute CHF exacerbation Pulmonary hypertension Hypertensive urgency History of CAD Constipation Liver ultrasound negative PE ruled out Transaminitis Hypercholesterolemia Rheumatoid arthritis History of gout Date of Service: Jul 07, 2024 Billing Provider: XIOMARA MARKS MD Common Visit Codes: 40534-UWJ/OBS DISCH DAY >30min XIOMARA MARKS MD Jul 07, 2024 10:55
== END 2024-07-07 17:30 | DRG 177 ==
LOC: ER 20:15 → OVERFLOW 07-04 10:08 → CENTRAL 07-05 03:30
PROVIDERS: ADMIT Family Medicine; ATTEND Family Medicine
PROC: B54MZZA Ultrasonography of Right Upper Extremity Veins, Guidance (ICD-10-PCS; principal; 2024-07-07)
PROC: 05H933Z Insertion of Infusion Device into Right Brachial Vein, Percutaneous Approach (ICD-10-PCS; 2024-07-07)
DX: J15.69 Pneumonia due to other Gram-negative bacteria (principal); I50.31 Acute diastolic (congestive) heart failure; J44.0 Chronic obstructive pulmonary disease with (acute) lower respiratory infection; J44.1 Chronic obstructive pulmonary disease with (acute) exacerbation; I11.0 Hypertensive heart disease with heart failure; J15.9 Unspecified bacterial pneumonia; Z20.822 Contact with and (suspected) exposure to COVID-19; I16.0 Hypertensive urgency; M06.9 Rheumatoid arthritis, unspecified; I27.20 Pulmonary hypertension, unspecified; K59.00 Constipation, unspecified; R74.01 Elevation of levels of liver transaminase levels; E78.00 Pure hypercholesterolemia, unspecified; I25.10 Atherosclerotic heart disease of native coronary artery without angina pectoris; N28.1 Cyst of kidney, acquired; Z96.653 Presence of artificial knee joint, bilateral; Z82.49 Family history of ischemic heart disease and other diseases of the circulatory system; Z86.16 Personal history of COVID-19; Z87.01 Personal history of pneumonia (recurrent); Z87.891 Personal history of nicotine dependence; Z88.1 Allergy status to other antibiotic agents
CPT/HCPCS: 36415; 71045; 71275; 74176; 76705; 80053; 81001; 83605; 83690; 83880; 84484; 85025; 87426; 87804; 94640; 96374; 96375; 97163; 99291; G0378; J2185; J2470

== ENCOUNTER 2024-08-11 08:07 | Inpatient (IN) | payer MEDICARE, MEDICAID ==
[~2024-08-11] VITALS: Ht 142.2 cm; Wt 63.1 kg
[2024-08-11] MEDS: ALBUTEROL SULF 2.5 MG/0.5ML(0.5%) NEB SOLN ONE (07:29)
[2024-08-11] MEDS: IPRATROPIUM BROM 0.5 MG/2.5ML INH SOL ONE (07:29)
[2024-08-11] MEDS: IPRATROPIUM BROM 0.5 MG/2.5ML INH SOL NEB ONE ×2 (08:28→08:30)
[2024-08-11] MEDS: ALBUTEROL SULF 2.5 MG/0.5ML(0.5%) NEB SOLN NEB ONE ×2 (08:28→08:30)
[2024-08-11 08:44] LABS: Basophils # (auto) 0.1 10 ^3/uL (0-0.2); Basophils % (auto) 0.8 % (0.0-2.0); Eosinophils # (auto) 0.1 10 ^3/uL (0-0.8); Eosinophils % (auto) 1.3 % (0.0-7.0); Hemoglobin 13.1 g/dL (12.2-16.2); Lymphocytes # (auto) 1.1 10 ^3/uL (0.4-5.4); Mean Corpuscular Hemoglobin 27.4 pg (28.0-32.0); Mean Corpuscular Hgb Conc. 31.9 g/dL (32.0-36.0); Mean Corpuscular Volume 85.7 fL (80.0-100.0); Monocytes # (auto) 1.1 10 ^3/uL (0-1.3); Neutrophils # (auto) 4.7 10 ^3/uL (1.6-8.6); Neutrophils % (auto) 65.9 % (37.0-80.0); Nucleated Red Blood Cells % 0.1 %; Platelet Count (auto) 276 10^3/uL (140-450); Red Blood Cells 4.78 10^6/uL (4.0-5.20); Red Cell Distribution Width 14.9 % (11.8-14.3); White Blood Cell 7.1 10^3/uL (4.4-10.8)
[2024-08-11 08:51] LABS: Potassium 3.9 mmol/L (3.5-5.1); Sodium 137 mmol/L (136-145)
[2024-08-11 08:52] LABS: Anion Gap 7 (5-15); Calcium 9.8 mg/dL (8.7-10.4)
[2024-08-11 08:57] LABS: BUN/Creatinine Ratio 15.2 (10.0-20.0); Blood Urea Nitrogen 14 mg/dL (9-23)
[2024-08-11 08:58] LABS: Carbon Dioxide 32 mmol/L (20-31); Chloride 98 mmol/L (98-107); Glucose 115 mg/dL (74-106)
--- NOTE | 2024-08-11 09:02 | ED.PDOC ---
SOB-HPI HPI Comments 73F BIBA w/ prior Hx of Asthma, COPD, CHF, 2L of O2 VIA NC at home which all may be associated to the c/c of SOB. EMS reports that the pt was picked up from [facility] and was requested to go to [facility]. EMS state that when they arrived on scene, the facility nurses were already giving the pt a breathing Trx. EMS state that the pt was in the high 80's before giving the pt 4L which after brought up the SAT levels to the low 90's. EMS note that the pt informed them that she has been having a cough for 1 week. PMHx of Anemia, Angina, Arthritis, CAD, Gout, High Lipids, HTN and [place]. SHx of Tonsillectomy and Tubal Ligation. Denies chills, fever, N/V/D, CP or no other associated symptom's, modifiers, recent injuries or sick contacts at this time. Chief Complaint: Shortness of Breath Time Seen by MD: 08:20 Primary Care Provider: SELINA Pineda notes: Nurses Notes, Agency Sales Management Assistant Notes, Medications, Allergies Information Source: Patient, Emergency Med Personnel Mode of Arrival: EMS Severity: Moderate Timing: Came on: Gradually Duration: Since onset Context: At Rest PE Risk Factors: None History of: Asthma, COPD, CHF Prehospital treatment: Breathing Tx (at [facility]), None Associated Signs and Symptoms: Cough If cough with SOB: Non-Productive Past Medical History PAST MEDICAL HISTORY: Anemia, Angina, Arthritis, Asthma, CAD, CHF, COPD, Gout, High Lipids, HTN, [place] Past Medical History (Other): Home O2 Via 2L NC Surgical History: Tonsillectomy, Tubal Ligation MARKETING FINANCE MANAGER History: No Pertinent MARKETING FINANCE MANAGER History Family History Family History: Reviewed,noncontributory to illness, Unknown, Family hx of heart mervat Social History Smoker: Non-Smoker, Quit Greater Than 1 Year Alcohol: Denies ETOH Use Drugs: Denies Drug Use Lives In: Home Constitutional: denies: chills, diaphoresis, fatigue, fever, malaise, sweats, weakness, others EENTM: denies: blurred vision, double vision, ear bleeding, ear discharge, ear drainage, ear pain, ear ringing, eye pain, eye redness, hearing loss, mouth pain, mouth swelling, nasal discharge, nose bleeding, nose congestion, nose pain, photophobia, tearing, throat pain, throat swelling, voice changes, others Respiratory: reports: cough, shortness of breath; denies: hemoptysis, orthopnea, SOB at rest, SOB with excertion, stridor, wheezing, others Cardiovascular: denies: chest pain, dizzy spells, diaphoresis, Dyspnea on exertion, edema, irregular heart beat, left arm pain, lightheadedness, palpitations, PND, syncope, others Gastrointestinal: denies: abdomen distended, abdominal pain, blood streaked bowels, constipated, diarrhea, dysphagia, difficulty swallowing, hematemesis, melena, nausea, poor appetite, poor fluid intake, rectal bleeding, rectal pain, vomiting, others Genitourinary: denies: abnormal vagina bleeding, burning, dyspareunia, dysuria, flank pain, frequency, hematuria, incontinence, pain, , vagina discharge, urgency, others Neurological: denies: dizziness, fainting, headache, left sided numbness, left sided weakness, numbness, paresthesia, pre-existing deficit, right sided numbness, right sided weakness, seizure, speech problems, tingling, tremors, weakness, others Musculoskeletal: denies: back pain, gout, joint pain, joint swelling, muscle pain, muscle stiffness, neck pain, others Integumetry: denies: bruises, change in color, change in hair/nails, dryness, laceration, lesions, lumps, rash, wounds, others Allergic/Immunocompromised: denies: Difficulty Healing, Frequent Infections, Hives, Itching, others Hematologic/Lymphatic: denies: anemia, blood clots, easy bleeding, easy bruising, swollen glands, others Endocrine: denies: excessive hunger, excessive sweating, excessive thirst, excessive urination, flushing, intolerance to cold, intolerance to heat, unexplained weight gain, unexplained weight loss, others Psychiatric: denies: anxiety, bipolar disorder, depression, hopeless, panic disorder, schizophrenia, sleepless, suicidal, others All Other Systems: Reviewed and Negative Physical Exam General Appearance: Moderate Distress, Normal HEENT: Normal ENT Inspection, Pharynx Normal, TMs Normal Neck: Full Range of Motion, Non-Tender, Normal, Normal Inspection Respiratory: Accessory Muscle Use, Chest Non-Tender, Respiratory Distress, Wheezing Cardiovascular: No Edema, No JVD, No Murmur, No Gallop, Normal Peripheral Pulses, Regular Rate/Rhythm Breast Exam: Deferred Gastrointestinal: No Organomegaly, Non Tender, No Pulsatile Mass, Normal Bowel Sounds, Soft Genitalia: Deferred Pelvic: Deferred Rectal: Deferred Extremities: No calf tenderness, Normal capillary refill, Normal inspection, Normal range of motion, Non-tender, Pedal edema Musculoskeletal : Apperance: Normal Neurologic: Alert, software quality analyst II-XII nml as Tested, No Motor Deficits, Normal Affect, Normal Mood, No Sensory Deficits Cerebellar Function: NOT DONE Reflexes: NOT DONE Skin: Dry, Normal Color, Warm Peripheral Pulses: 3+ Radial (R), 3+ Radial (L) Lymphatic: No Adenopathy Was a procedure done? Was a procedure done?: No Differential Dx Differential Diagnosis: Anxiety, Asthma, Bronchitis, CHF, COPD X-Ray, Labs, Meds, VS Vital Signs Date Time Temp Pulse Resp B/P (MAP) Pulse Ox O2 Delivery O2 Flow Rate FiO2 08/11/24 08:30 16 92 Nasal Cannula* 4 36 08/11/24 08:13 94 Nasal Cannula* 4 36 08/11/24 08:13 98.7 85 16 170/100 (123) 94 98.7 Lab Test 08/11/24 08:33 Range/Units White Blood Count 7.1 4.4-10.8 10^3/uL Red Blood Count 4.78 4.0-5.20 10^6/uL Hemoglobin 13.1 12.2-16.2 g/dL Hematocrit 41.0 36.0-46.0 % Mean Corpuscular Volume 85.7 80.0-100.0 fL Mean Corpuscular Hemoglobin 27.4 L 28.0-32.0 pg Mean Corpuscular Hemoglobin Concent 31.9 L 32.0-36.0 g/dL Red Cell Distribution Width 14.9 H 11.8-14.3 % Platelet Count 276 140-450 10^3/uL Mean Platelet Volume 8.4 6.9-10.8 fL Neutrophils (%) (Auto) 65.9 37.0-80.0 % Lymphocytes (%) (Auto) 16.0 10.0-50.0 % Monocytes (%) (Auto) 16.0 H 0.0-12.0 % Eosinophils (%) (Auto) 1.3 0.0-7.0 % Basophils (%) (Auto) 0.8 0.0-2.0 % Neutrophils # (Auto) 4.7 1.6-8.6 10 ^3/uL Lymphocytes # (Auto) 1.1 0.4-5.4 10 ^3/uL Monocytes # (Auto) 1.1 0-1.3 10 ^3/uL Eosinophils # (Auto) 0.1 0-0.8 10 ^3/uL Basophils # (Auto) 0.1 0-0.2 10 ^3/uL Nucleated Red Blood Cells 0.1 % Sodium Level 137 136-145 mmol/L Potassium Level 3.9 3.5-5.1 mmol/L Chloride Level 98 98-107 mmol/L Carbon Dioxide Level 32 H 20-31 mmol/L Anion Gap 7 5-15 Blood Urea Nitrogen 14 9-23 mg/dL Creatinine 0.92 0.550-1.02 mg/dL Glomerular Filtration Rate Calc 67 >90 mL/min BUN/Creatinine Ratio 15.2 10.0-20.0 Serum Glucose 115 H 74-106 mg/dL Calcium Level 9.8 8.7-10.4 mg/dL Troponin I High Sensitivity 15 </=34 ng/L B-Type Natriuretic Peptide 273.61 0-100 pg/mL Current Medications Medications (Trade) Dose Ordered Sig/Kristen Route Start Time Stop Time Status Last Admin Albuterol (Ventolin Medneb) 5 mg ONCE ONCE NEB 08/11/24 08:15 08/11/24 08:16 DC 08/11/24 08:28 Ipratropium Todd (Atrovent Medneb) 0.5 mg ONCE ONCE NEB 08/11/24 08:15 08/11/24 08:16 DC 08/11/24 08:28 Patient alert. Complaining of shortness a breath. Using accessory muscles. Placed on oxygen. Was given breathing treatment. Was given Lasix pain Blood pressure elevated. She does have chronic history. EKG reviewed does not show any acute changes. Explained to the patient. Continue to monitor. Time of 1ST Reevaluation: 08:50 Reevaluation 1ST: Unchanged Patient Education/Counseling: Diagnosis, Treatment, Prognosis Family Education/Counseling: No Family Present Departure 1 Departure Time of Disposition: 09:04 Impression: Primary Impression: Acute respiratory failure Qualified Codes: J96.01 - Acute respiratory failure with hypoxia Additional Impressions: COPD exacerbation CHF exacerbation Qualified Codes: I50.43 - Acute on chronic combined systolic (congestive) and diastolic (congestive) heart failure Hypertensive urgency Disposition: ADMITTED INPATIENT Admit to: Med Surg Condition: Guarded Critical Care Note Critical Care Time?: Yes (90 min-critical care time only) Critical care comment: Placed on oxygen Stability Stability form required: No Heart Score Heart Score: Heart Score Response (Comments) Value History Slightly Suspicious 0 EKG Normal 0 Age >65 2 Risk Factors >3 or Hx ASHD 2 Troponin N/A 0 Total 4 I personally scribed for SOUMYA SPRINGER MD ([email or web address]) on 08/11/24 at 09:02. Electronically submitted by Ramakrishna Taylor ([email or web address]). SOUMYA SPRINGER MD Aug 11, 2024 09:02
--- NOTE | 2024-08-11 09:05 | DVH ---
XY CHEST PORTABLE, HISTORY: sob COMPARISON: XY CHEST PORTABLE on DOS: 07/03/24, XY CHEST XRAY 1 VIEW on DOS: 04/11/24, XY CHEST PORTABL E on DOS: 06/16/23 XY CHEST PORTABLE on DOS: 07/03/24, XY CHEST XRAY 1 VIEW on DOS: 04/11/24, XY CHEST PORTABLE on DOS: TECHNICAL DATA: 1 view of the chest was obtained. FINDINGS: Lines and tubes: None Cardiomediastinal silhouette: enlarged Pulmonary vasculature: prominent Lung expansion: normal Lung airspace: Patchy bibasilar opacities. Lung interstitium: normal Pleura: normal Pneumothorax: no Bones: Unremarkable Other: no IMPRESSION: Patchy bibasilar airspace opacities. Cardiomegaly.
[2024-08-11] MEDS: cloNIDine HCL 0.1 MG TAB PO ONE (09:15)
[2024-08-11] MEDS: methylPREDNISolone SOD SUCC 125 MG/2 ML VL IV ONE (09:38)
[2024-08-11] MEDS: MAGNESIUM SULFATE 1GM/100ML 100 ML IV ONE (09:38)
[2024-08-11] MEDS: FUROSEMIDE 40 MG/4 ML VIAL IV ONE (10:19)
[2024-08-11 10:22] VITALS: RESP 18
[2024-08-11] MEDS ORDERED: ONDANSETRON HCL 4 MG/2 ML VIAL IV PRN (13:00)
[2024-08-11] MEDS ORDERED: hydrALAZINE HCL 20 MG/ML VL IV PRN (13:00)
[2024-08-11] MEDS ORDERED: cefTRIAXone 1GM/50ML D5W 50 ML IV ONE (13:00)
[2024-08-11] MEDS ORDERED: ACETAMINOPHEN 325 MG TAB PO PRN (13:00)
[2024-08-11] MEDS ORDERED: DOCUSATE SOD 100 MG CAP PO PRN (13:00)
[2024-08-11] MEDS ORDERED: HYDROcodone-ACET 5/325MG TAB PO PRN (13:00)
[2024-08-11 13:29] VITALS: BP 117/65; PULSE 103; RESP 18; TEMP 98.9; O2SAT 95
--- NOTE | 2024-08-11 13:36 | DVHHP2 ---
History of Present Illness Reason for Visit: Shortness of breath History of Present Illness Piper Recinos is a 73-year-old female with past medical history of asthma, COPD, home oxygen at 2L/NC, CHF, hypertension, rheumatoid arthritis, and hyperlipidemia that came in for shortness of breath. Patient states that she was admitted about 1 month ago for abdominal pain, pneumonia. Patient lives alone, and was sent to [facility] for rehabilitation. She states she is not getting any better there. She would like to go home after being seen here. Patient states she came in today due to shortness of breath that began this morning. Chest X-ray shows bibasilar airspace opacities. Cardiovascular: CAD, CHF, HTN, ID, hyperipidemia Pulmonary: Asthma, COPD Rheumatologic: Rheumatoid arthritis Past Surgical History: Other (right foot), Total knee replacement (Bilateral), Tubal Ligation, Tonsillectomy Family History: None Smoke: No ALCOHOL: none Drugs: None Lives: with Family Review of Systems Constitutional: No: Fever, Chills, Sweats, Weakness, Malaise, Other Eyes: No: Pain, Vision change, Conjunctivae inflammation, Eyelid inflammation, Other, Redness ENT: No: Ear pain, Ear discharge, Nose pain, Nose discharge, Nose congestion, Mouth pain, Mouth swelling, Throat pain, Throat swelling, Other Respiratory: Cough, Shortness of breath, SOB with excertion, Wheezing; No: Dry, Hemoptysis, Pleuritic Pain, Sputum, Wheezing, Other Cardiovascular: No: Chest Pain, Palpitations, Orthopnea, Paroxysmal Noc. Dyspnea, Edema, Lt Headedness, Other Gastrointestinal: No: Nausea, Vomiting, Abdominal Pain, Diarrhea, Constipation, Melena, Hematochezia, Other Genitourinary: No Dysuria, No Frequency, No Incontinence, No Hematuria, No Retention, No Other Musculoskeletal: No: other, neck pain, shoulder pain, arm pain, back pain, hand pain, leg pain, foot pain Skin: No: Rash, Lesions, Jaundice, Bruising, Other Neurological: No: Weakness, Numbness, Incoordination, Change in speech, Confusion, Seizures, Other Allergies: Coded Allergies: Ceftriaxone (Verified Allergy, Intermediate, 12/31/23) RASH COUGH Levofloxacin (Verified Allergy, Unknown, 12/31/23) Exam Vital Signs Vital Signs Date Time Temp Pulse Resp B/P (MAP) Pulse Ox O2 Delivery O2 Flow Rate FiO2 08/11/24 10:22 18 Nasal Cannula* 4 36 08/11/24 09:11 98.9 103 117/65 (82) 95 98.9 General Appearance: Alert, Oriented X3, Cooperative, moderate distress HEENT: Atraumatic, PERRLA, Mucous membr. moist/pink Cardiovascular: Regular rate, Normal S1, Normal S2 Abdominal: Normal bowel sounds, Soft, No tenderness Extremities: No clubbing, No cyanosis, Normal pulses Skin: No rashes, No breakdown, No significant lesion Neuro: Normal speech, Other (states she is weak, and gets SOB with activity) Psych/Mental Status: Mental status NL, Mood NL Labs/Xrays Labs Test 08/11/24 11:40 08/11/24 08:33 Range/Units Troponin I High Sensitivity 23 </=34 ng/L White Blood Count 7.1 4.4-10.8 10^3/uL Red Blood Count 4.78 4.0-5.20 10^6/uL Hemoglobin 13.1 12.2-16.2 g/dL Hematocrit 41.0 36.0-46.0 % Mean Corpuscular Volume 85.7 80.0-100.0 fL Mean Corpuscular Hemoglobin 27.4 L 28.0-32.0 pg Mean Corpuscular Hemoglobin Concent 31.9 L 32.0-36.0 g/dL Red Cell Distribution Width 14.9 H 11.8-14.3 % Platelet Count 276 140-450 10^3/uL Mean Platelet Volume 8.4 6.9-10.8 fL Neutrophils (%) (Auto) 65.9 37.0-80.0 % Lymphocytes (%) (Auto) 16.0 10.0-50.0 % Monocytes (%) (Auto) 16.0 H 0.0-12.0 % Eosinophils (%) (Auto) 1.3 0.0-7.0 % Basophils (%) (Auto) 0.8 0.0-2.0 % Neutrophils # (Auto) 4.7 1.6-8.6 10 ^3/uL Lymphocytes # (Auto) 1.1 0.4-5.4 10 ^3/uL Monocytes # (Auto) 1.1 0-1.3 10 ^3/uL Eosinophils # (Auto) 0.1 0-0.8 10 ^3/uL Basophils # (Auto) 0.1 0-0.2 10 ^3/uL Nucleated Red Blood Cells 0.1 % Sodium Level 137 136-145 mmol/L Potassium Level 3.9 3.5-5.1 mmol/L Chloride Level 98 98-107 mmol/L Carbon Dioxide Level 32 H 20-31 mmol/L Anion Gap 7 5-15 Blood Urea Nitrogen 14 9-23 mg/dL Creatinine 0.92 0.550-1.02 mg/dL Glomerular Filtration Rate Calc 67 >90 mL/min BUN/Creatinine Ratio 15.2 10.0-20.0 Serum Glucose 115 H 74-106 mg/dL Calcium Level 9.8 8.7-10.4 mg/dL B-Type Natriuretic Peptide 273.61 0-100 pg/mL XY CHEST PORTABLE, FINDINGS: Lines and tubes: None Cardiomediastinal silhouette: enlarged Pulmonary vasculature: prominent Lung expansion: normal Lung airspace: Patchy bibasilar opacities. Lung interstitium: normal Pleura: normal Pneumothorax: no Bones: Unremarkable Other: no IMPRESSION: Patchy bibasilar airspace opacities. Cardiomegaly. 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 Procedure Category Date Status Time Admit ADMIT 08/11/24 Transmitted 12:58 Code Status CODE 08/11/24 Transmitted 12:58 Sodium Chloride Lock PHA 08/11/24 Transmitted (Saline Lock Ns) 14:00 Hydrocodone-Acet PHA 08/11/24 Transmitted 5/325mg Tab ([place] 13:00 Ondansetron Hcl PHA 08/11/24 Transmitted (Zofran) 13:00 Docusate Sodium PHA 08/11/24 Transmitted Capsule (Colace 13:00 Fall Risk Precautions SOPHIE 08/11/[address] 12:58 Complete Blood Count LAB 08/12/24 Verified 04:00 Comprehensive LAB 08/12/24 Verified Metabolic Panel 04:00 Cardiac DIET 08/11/24 Transmitted Diet-2gna,Lofat,Lochol Lunch Pt Request For Service PT 08/11/24 Transmitted 12:58 Condition: Serious SOPHIE 08/11/24 Transmitted 12:58 Acetaminophen Tablet PHA 08/11/24 Transmitted (Tylenol Tablet) 13:00 Ceftriaxone Ivpb PHA 08/12/24 Transmitted Rocephin 09:00 Ceftriaxone Ivpb PHA 08/11/24 Transmitted Rocephin 13:00 Azithromycin 500mg/ PHA 08/12/24 Transmitted 250ml (Zithromax 50 10:00 Azithromycin 500mg/ PHA 08/11/24 Transmitted 250ml (Zithromax 50 13:00 Albuterol Medneb PHA 08/11/24 Transmitted (Ventolin Medneb) 18:00 Ipratropium Medneb PHA 08/11/24 Transmitted (Atrovent Medneb) 18:00 Methylprednisolone PHA 08/11/24 Transmitted Sod Succ (Solu Medrol 22:00 Hydralazine Injection PHA 08/11/24 Transmitted (Apresoline Inject 13:00 Furosemide Tablet PHA 08/12/24 Transmitted (Lasix Tablet) 10:00 Latanoprost (Xalatan) PHA 08/11/24 Transmitted 18:00 Sildenafil Citrate PHA 08/11/24 Transmitted (Revatio) 14:00 (Nf) Carvedilol PHA 08/11/24 Transmitted 22:00 (NF) PHA 08/11/24 Transmitted Dorzolamide-Timolol 22:00 (Nf) Ferrous Sulfate PHA 08/11/24 Transmitted (Ferosul) 22:00 Date of Service: Aug 11, 2024 Billing Provider: LEVON COLIN Common Visit Codes: [id number] INP/OBS CARE (HIGH) LEVON COLIN Aug 11, 2024 13:36
[2024-08-11] MEDS: SODIUM CHLOR 0.9% PF (SALINE LOCK) 10ML VIAL/SYR IV SCH (14:00)
[2024-08-11] MEDS: SILDENAFIL CITRATE 20 MG TAB PO SCH (15:30)
[2024-08-11] MEDS: AZITHROMYCIN 500MG/ 250ML 250 ML IV ONE (15:40)
[2024-08-11] MEDS: LATANOPROST 0.005 % OPTH(EYE) SOL 2.5ML EACHEYE SCH (18:00)
[2024-08-11 18:40] VITALS: PULSE 85; PULSE 88; RESP 18; O2SAT 100; O2SAT 99
[2024-08-11 20:26] VITALS: PULSE 92; RESP 14; O2SAT 89
[2024-08-11] MEDS: IPRATROPIUM BROM 0.5 MG/2.5ML INH SOL NEB SCH (20:32)
[2024-08-11] MEDS: ALBUTEROL SULF 2.5 MG/0.5ML(0.5%) NEB SOLN NEB SCH (20:33)
[2024-08-11 21:00] VITALS: BP 131/62; PULSE 50; RESP 15; TEMP 98.2; O2SAT 94
[2024-08-11 21:33] VITALS: BP 131/62; PULSE 50; RESP 15; TEMP 98.2; O2SAT 94
[2024-08-11] MEDS: TIMOLOL EACHEYE SCH (22:00)
[2024-08-11] MEDS: DORZOLAMIDE EACHEYE SCH (22:00)
[2024-08-11] MEDS: CARVEDILOL 12.5 MG TAB PO SCH (22:00)
[2024-08-11] MEDS ORDERED: CEFEPIME 1GM/ 50ML 50 ML IV SCH (22:00)
[2024-08-11] MEDS: methylPREDNISolone SOD SUCC 40 MG/ML VL IV SCH (22:03)
[2024-08-11] MEDS: FERROUS SULFATE 325mg EC TAB PO SCH (22:04)
[2024-08-12] VITALS (46 sets, daily range): BP systolic 89–197; BP diastolic 35–128; PULSE 65–119; RESP 13–28; TEMP 97–98.4; O2SAT 89–100
--- NOTE | 2024-08-12 00:01 | ECG ---
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
[2024-08-12 07:25] LABS: Basophils # (auto) 0 10 ^3/uL (0-0.2); Basophils % (auto) 0.4 % (0.0-2.0); Eosinophils # (auto) 0 10 ^3/uL (0-0.8); Hematocrit 36.5 % (36.0-46.0); Hemoglobin 11.9 g/dL (12.2-16.2); Lymphocytes # (auto) 0.9 10 ^3/uL (0.4-5.4); Lymphocytes % (auto) 12.7 % (10.0-50.0); Mean Corpuscular Hemoglobin 27.9 pg (28.0-32.0); Mean Corpuscular Hgb Conc. 32.6 g/dL (32.0-36.0); Mean Corpuscular Volume 85.7 fL (80.0-100.0); Monocytes # (auto) 0.6 10 ^3/uL (0-1.3); Monocytes % (auto) 8.4 % (0.0-12.0); Neutrophils # (auto) 5.7 10 ^3/uL (1.6-8.6); Neutrophils % (auto) 78.5 % (37.0-80.0); Platelet Count (auto) 302 10^3/uL (140-450); Red Blood Cells 4.25 10^6/uL (4.0-5.20); Red Cell Distribution Width 14.7 % (11.8-14.3); White Blood Cell 7.2 10^3/uL (4.4-10.8)
[2024-08-12 07:46] LABS: Alanine Aminotransferase 17 U/L (7-40); Albumin 4.2 g/dL (3.2-4.8); Anion Gap 8 (5-15); Aspartate Aminotransferase 20 U/L (13-40); BUN/Creatinine Ratio 20.7 (10.0-20.0); Bilirubin, Total 0.5 mg/dL (0.2-1.0); Blood Urea Nitrogen 18 mg/dL (9-23); Calcium 9.6 mg/dL (8.7-10.4); Chloride 100 mmol/L (98-107); Sodium 142 mmol/L (136-145); Total Protein 6.9 g/dL (5.7-8.2)
[2024-08-12 07:47] LABS: Alkaline Phosphatase 119 U/L (46-116); Carbon Dioxide 34 mmol/L (20-31); Glucose 129 mg/dL (74-106)
[2024-08-12] MEDS ORDERED: cefTRIAXone 1GM/50ML D5W 50 ML IV SCH (09:00)
[2024-08-12] MEDS: AZITHROMYCIN 500MG/ 250ML 250 ML IV SCH (09:57)
[2024-08-12] MEDS: FUROSEMIDE 40 MG TAB PO SCH (09:57)
[2024-08-12] MEDS: NOREPINEPHRINE 8 MG/250ML KIT 250 ML IV ONE (10:50)
[2024-08-12] MEDS: DOPamine 1600MCG/ML D5W 0 ML IV ONE (10:50)
[2024-08-12] MEDS: EPINEPHrine HCL 250 ML IV ONE (10:50)
[2024-08-12] MEDS: fentaNYL Drip 2500mCg/250mlNS 250 ML IV ONE (10:59)
[2024-08-12] MEDS: MIDAZOLAM DRIP 50 mg/50mL 50 ML IV ONE (11:00)
[2024-08-12] MEDS: VASOPRESSIN 20 UNIT/ML ONE (11:23)
[2024-08-12] MEDS: SODIUM BICARB 8.4% 50Meq/50ml SYR Vial IV ONE ×2 (11:39)
[2024-08-12] MEDS: HYDROCORTISONE SOD SUCC 100 MG/2ML INJ VIAL ONE (11:45)
[2024-08-12] MEDS: HYDROCORTISONE SOD SUCC 100 MG/2ML INJ VIAL IV ONE (11:46)
[2024-08-12] MEDS: ALBUTEROL SULF 2.5 MG/0.5ML(0.5%) NEB SOLN ONE (11:47)
[2024-08-12] MEDS: SODIUM CHLORIDE 0.9% 1,000 ML IV ONE (11:50)
[2024-08-12] MEDS: NOREPINEPHRINE 8 MG/250ML KIT 250 ML IV SCH (11:58)
[2024-08-12] MEDS: fentaNYL Drip 2500mCg/250mlNS 250 ML IV SCH (12:00)
[2024-08-12] MEDS: DOPamine 1600MCG/ML D5W 250 ML IV SCH (12:08)
[2024-08-12] MEDS: EPINEPHrine HCL 250 ML IV SCH (12:15)
[2024-08-12] MEDS: MIDAZOLAM DRIP 50 mg/50mL 50 ML IV SCH (12:30)
--- NOTE | 2024-08-12 12:37 | DVH ---
CHEST RADIOGRAPH Indication: s/p intubation central line Technique: Single frontal view of the chest was obtained COMPARISON: XY CHEST PORTABLE on DOS: 08/11/24, XY CHEST PORTABLE on DOS: 07/03/24, XY CHEST XRAY 1 VIEW on DOS: 04/11/24, XY CHEST PORTABLE on DOS: 06/16/23, XY CHEST XRAY 1 VIEW on DOS: 06/13/23 FINDINGS: Lines and Tubes: Endotracheal tube in satisfactory position. Left central venous catheter in uncertai n position. Lungs: Multifocal airspace disease. Pleura: No effusion. No pneumothorax. Cardiomediastinal contours: Cardiomegaly. Bones: Unremarkable IMPRESSION: Left central venous catheter overlies the left upper chest and may be not position. Clinical correla tion advised.
[2024-08-12] MEDS: VASOPRESSIN 20 UNITS in SODIUM CHL 0.9% 99 ML IV SCH (12:45)
--- NOTE | 2024-08-12 13:20 | RESUS ---
CODE BLUE ASSESSSMENT History of Events History of Events: Code assist initally paged due to MST nurse finding patient slumped over while in sitting position. Per bedside RN, patient noted to have stiffness to bilateral upper and lower extremities. Patient was unresponsive to verbal stimuli. Per bedside RN, patient then noted to become bradycardic with aganol respirations. Code assist was then converted to code blue where CPR was initiaed by bedside RN. Initial Information Date: Aug 12, 2024 Time: : [place]rest: [place] Witnessed: Yes CPR started initial time: : CPR started by whom: Hospital Staff Pre-Hospital Care: Pre-Code Care (inpatient) Type of arrest: Cardiac Spontaneous Respirations: No Pulse Present: No Monitoring: Pulse Oximetry, Telemetry Crash Cart Opened and Supplies: Yes Airway Ventilation Breathing at Onset: Assisted Oxygen Delivery Method: Ambu-Bag Time of first Assisted Ventila: :31 Artificial Ventilation: Bag/Mask Intubation Time: :40 Intubation Size: 8.0 cuffed Intubated by: Dr White Intubation Attempts: 4 Intubated orally: Yes CO2 indicator used: Yes Confirmation: Auscultation, Exhaled CO2 Suctioning (Oral/Tracheal): Yes Circulation Circulation #1: Time: 11:33 Circulation Comment: PEA Circulation #2: Time: 11:35 Circulation Comment: PEA Circulation #3: Time: 11:37 Circulation Comment: PEA Circulation #4: Time: 11:39 Circulation Comment: PEA Circulation #5: Time: 11:41 Circulation Comment: PEA Circulation #6: Time: 11:43 Pulse Rate (adult): 44 Circulation Comment: ROSC UNABLE TO OBTAIN BP PULSE LOST AT 1145 AND CPR RESUMED Circulation #7: Time: 11:45 Circulation Comment: PEA Circulation #8: Time: 11:47 Circulation Comment: PEA Circulation #9: Time: 11:49 Pulse Rate (adult): 124 Blood Pressure Systolic: 170 Blood Pressure Diastolic: 101 Circulation Comment: ROSC Procedure - IV Procedure - IV : IV Side: Left IV Location: Wrist IV Catheter Type: Saline Lock IV Placed: In Hospital Comment IV ESTABLISHED PRIOR TO CODE Procedure - Intraosseous Time of intraosseous: 11:40 Site of Intraosseous: Tibia stacy-medial Intraosseous inserted by: UNSUCCESSFUL ATTEMPT BY DR HURD. PRESSURE DRESSING APPLIED Number of attempts for Intraos: 1 Medications & Response Medications and Responses #1: Medication Time: 11:33 ADULT Medications Given ADULT: Epinephrine 1 mg Route of Administration: IV Medications and Responses #2: Medication Time: 11:36 ADULT Medications Given ADULT: Epinephrine 1 mg, Sodium Bacarbinate 50 meq Route of Administration: IV Medications and Responses #3: Medication Time: 11:39 ADULT Medications Given ADULT: Epinephrine 1 mg Route of Administration: IV Medications and Responses #4: Medication Time: 11:42 ADULT Medications Given ADULT: Epinephrine 1 mg, Sodium Bacarbinate 50 meq Medications and Responses #5: Medication Time: 11:43 ADULT Medications Given ADULT: Atropine 1 mg Route of Administration: IV Medications and Responses #6: Medication Time: 11:45 ADULT Medications Given ADULT: Epinephrine 0.5 mg Route of Administration: IV Medications and Responses #7: Medication Time: 11:48 ADULT Medications Given ADULT: Epinephrine 1 mg Route of Administration: IV Procedure - Central Venous Cat Central venous catheter time: 11:58 Central venous catheter site: Lt Subclavian Comment: DR WHITE Nurses Notes Rodessa Coma Scale Eye Opening: None (1) Rodessa Coma Scale Verbal: None (1) Angel Coma Scale Motor: None (1) Glascow Total: 3 Pupil Reaction: Sluggish Bedside Blood Glucose: 250 EKG Rhythm: Sinus Tachycardia Nurses Notes - Comment: PATIENT UPGRADED TO ICU STATUS. CARE ENDORSED TO ICU RESOURCE RN. Time Code Ended Time Code Ended: 11:49 Post Arrest Status: Ventilated Outcome of code: Successful Family notified: Yes Attending called: Yes Code Team Present: DR COTY NICHOLAS PIPE TESTER ISRRAEL PIPE TESTER TERRENCE RN RACHANA RN SHELBI PISANO RN SARAHY CCT SUZY ROSC Time of ROSC: 11:49 Sarahy Meléndez Aug 12, 2024 13:20 EDITH WHITE MD Aug 14, 2024 18:09
[2024-08-12] MEDS: ALBUTEROL SULF 2.5 MG/0.5ML(0.5%) NEB SOLN NEB ONE (13:26)
[2024-08-12 13:28] LABS: Base Excess -0.3 mmol/L (-2.0-3.0)
--- NOTE | 2024-08-12 13:29 | DVHNC2 ---
Procedure - Procedure: Endotracheal Intubation INDICATION: Acute respiratory failure, accessory muscle usage Physician: Edith White MD PGY3 Attending: Dr Bella CONSENT: Emergent procedure. Implied. Patient medications and allergies reviewed. Patient identification and proposed procedure were verified prior to the procedure by the physician, and a nurse in the patient's room. The heart rate, respiratory rate, oxygen saturations, blood pressure, adequacy of pulmonary ventilation, and response to care were monitored throughout the procedure. The physical status of the patient was reassessed after the procedure. PROCEDURE SUMMARY: A time out was performed. My hands were washed immediately prior to the procedure. I wore a surgical cap, mask with protective eyewear, gown and gloves throughout the procedure. The patient was placed on a potline monitor including continuous pulse oximetry. The patient received 16 mg Etomidate and 50 mg rocuronium for induction. Cricoid pressure was maintained from time induction agent was given to time of cuff balloon inflation. Using a MAC 4 GlideoScope and a size 8.0 endotracheal tube with stylet, the patient was intubated on the1st attempt. Patient was very anterior. The stylet was removed and cuff balloon was inflated. Appropriate endotracheal tube position was confirmed by direct visualization of vocal cord passage, fogging of the tube, CO2 colorimetric indicator and symmetric breath sounds. The tube was secured at 21 cm at the lips. Post intubation chest x-ray is demonstrates the ETT between 6 cm above the olman. CPT Code: 46366 EDITH WHITE RESIDENT Aug 12, 2024 13:29
--- NOTE | 2024-08-12 13:38 | DVHNC2 ---
EDITH WHITE RESIDENT 08/12/24 1338: Procedure - ULTRASOUND-GUIDED LEFT INTERNAL JUGULAR CENTRAL VENOUS CANNULATION CPT Codes: 57022 (ultrasound guidance) 68211 (insertion of non-tunneled centrally inserted central venous catheter) 58953 (CXR interpretation) Attending: Dr Hernandez Resident: Dr White PGY3 Patient medications and allergies reviewed. The risks and benefits of the procedure and the sedation options and risk were discussed with the patient's healthcare proxy. All questions were answered and informed consent was obtained. Patient identification and proposed procedure were verified prior to the procedure by the physician, and a nurse in the patient's room. The heart rate, respiratory rate, oxygen saturations, blood pressure, adequacy of pulmonary ventilation, and response to care were monitored throughout the pr ocedure. The physical status of the patient was reassessed after the procedure. DATE: 08/12/2024 PHYSICIAN: Edith White PREOPERATIVE DIAGNOSIS: Shock, Cardiogenic vs Septic POSTOPERATIVE DIAGNOSIS: Shock, Cardiogenic vs Septic PROCEDURE PERFORMED: Limited Ultrasound-guided LEFT internal jugular central line placement. ANESTHESIA: 2 mL of 1% lidocaine plain. ESTIMATED BLOOD LOSS: less than 5 mL. SPECIMENS: None. COMPLICATIONS: None. INDICATIONS FOR PROCEDURE: The patient is in need of large bore IV access for administration of fluids, including blood products and vasoactive drugs, possible transvenous cardiac pacing and CVP monitoring for hemodynamic instability. DESCRIPTION OF PROCEDURE IN DETAIL: The patient was lying in the Trendelenburg position with head turned 30 degrees away from the insertion site. The skin was thoroughly sponged with chlorhexidine and allowed to dry. All persons involved were shielded with hair nets, face masks and sterile gowns. With sterile-gloved hands the LEFT neck area was draped with the large disposable sterile field provided in the pre-manufactured kit. The skin and subcutaneous tissues superficial to the LEFT internal jugular vein were anesthetized with 2 mL of 1% lidocaine. The LEFT internal jugular vein was identified on ultrasound from the angle of the mandible down into the supraclavicular fossa using the linear ultrasound probe in the transverse orientation. The carotid artery was identified and avoided utilizing color-flow. The internal jugular vein was then placed in the center of the ultrasound field and compressed for patency. A movement artifact was identified as the needle was advanced through the skin and advanced toward the vessel. A real time hyperechoic signal revealed visualization of vascular needle entry into the lumen as blood was noted to flashback in the syringe. The needle was then held in place while the guide wire was advanced. The needle was then removed. Direct visualization of guide wire location within the vein was noted on ultrasound indicating proper placement and was document in the electronic medical record chart. A skin dilator was advanced over the guidewire and removed, and the triple-lumen catheter was then advanced over the guide wire into proper position. The guide wire was removed and discarded. The ports were aspirated which showed good blood return and then carefully flushed with normal saline. The catheter was stabilized and sutured to the skin with 2-0 silk at 2 anchor points. A sterile bio-patch and dressing was placed over the catheter, including the insertion site. The patient tolerated the procedure well. A chest x-ray was ordered for position confirmation. I reviewed the image immediately a fter it was taken at bedside. Post-procedure chest x-ray demonstrates the central line in the superior vena and no evidence of any pneumothorax. An image recording of the procedure accompanies the chart. ROSHAN HERNANDEZ MD 08/17/24 1158: Date of Service: Aug 12, 2024 Billing Provider: ROSHAN HERNANDEZ MD Common Visit Codes: PROCEDURE ONLY Procedure Codes: [id number] NON-TUNNEL CV CATH EDITH WHITE Aug 12, 2024 13:38 ROSHAN HERNANDEZ MD Aug 17, 2024 11:58
[2024-08-12] MEDS: PROPOFOL 100 ML IV SCH (13:45)
[2024-08-12] MEDS: PHENYLEPHRINE IV 250 ML IV SCH (13:45)
--- NOTE | 2024-08-12 13:46 | DVHNC2 ---
EDITH WHITE RESIDENT 08/12/24 1346: Procedure - Therapeutic Bronchoscopy procedure note: Indications: poor air entry, Possible mucous plugging. Medicines: See ENROLLMENT ELIGIBILITY REPRESENTATIVE notes. Complications: None Attending: Dr Hernandez Resident: Dr Domenico White PGY3. Procedure: Patient medications and allergies reviewed. The risks and benefits of the procedure and the sedation options and risk were discussed with the patient's healthcare proxy. All questions were answered and informed consent was obtained. Patient identification and proposed procedure were verified prior to the procedure by the physician, and a nurse, and the respiratory therapist in ICU room. The heart rate, respiratory rate, oxygen saturations, blood pressure, adequacy of pulmonary ventilation, and response to care were monitored throughout the procedure. The physical status of the patient was reassessed after the procedure. After obtaining informed consent, the bronchoscope was introduced through the endotracheal tube and advanced into the trachea bronchial tree of both lungs. The procedure was accomplished without difficulty. The patient tolerated the procedure well. Findings: The trachea is in normal caliber. The olman is sharp. The tracheobronchial tree of the right lung was examined to at least the first subsegmental level. The bronchial mucosa and anatomy in the right lung are normal. There are no endobronchial lesions. There was copious whitish secretions from right main stem bronchus onward throughout R1-R3. The left upper lobe, lingula, and left lower lobe were examined to at least the first subsegmental level. Bronchial mucosa and anatomy in the left upper lobe and lingula are normal. There were no endobronchial lesions. There was copious whitish secretions from left main stem bronchus onward throughout L6-L10. Mucous plugging removed from L6-L10. There was no active bleeding at the completion of the procedure. Estimated blood loss: Less than 5 mL. Impression: Left lower lobe atelectasis due to mucous plugging Mucous plugging from L6-L10 and R1-R3 Recommendation: Pulmonary toileting Procedure codes: 14580, bronchoscopy, rigid and flexible, including fluoroscopic guidance, one performed; with bronchial endobronchial removal of mucous plugging, single or multiple sites ROSHAN HERNANDEZ MD 08/17/24 1158: Date of Service: Aug 12, 2024 Billing Provider: ROSHAN HERNANDEZ MD Common Visit Codes: PROCEDURE ONLY Procedure Codes: [id number] EDITH WHITE RESIDENT Aug 12, 2024 13:46 ROSHAN HERNANDEZ MD Aug 17, 2024 11:58
--- NOTE | 2024-08-12 15:08 | DVHPN2 ---
Reviewed: Care Plan, H&P, Labs, Medications, Previous Orders, Radiology Changes from previous H/P or p: Changes (Patient coded and got intubated) Eyes: No Pain, No Vision change, No Conjunctivae inflammation, No Eyelid inflammation, No Other, No Redness ENT: No Ear pain, No Ear discharge, No Nose pain, No Nose discharge, No Nose congestion, No Mouth pain, No Mouth swelling, No Throat pain, No Throat swelling, No Other Cardiovascular: No Chest Pain, No Palpitations, No Orthopnea, No Paroxysmal Noc. Dyspnea, No Edema, No Lt Headedness, No Other Respiratory: Cough; No Dry; Shortness of breath, SOB with excertion, Wheezing; No Hemoptysis, No Pleuritic Pain, No Sputum, No Other Gastrointestinal: No Nausea, No Vomiting, No Abdominal Pain, No Diarrhea, No Constipation, No Melena, No Hematochezia, No Other Genitourinary: No Dysuria, No Frequency, No Incontinence, No Hematuria, No Retention, No Other Musculoskeletal: No other, No neck pain, No shoulder pain, No arm pain, No back pain, No hand pain, No leg pain, No foot pain Skin: No Rash, No Lesions, No Jaundice, No Bruising, No Other Objective Vitals Vital Signs Date Time Temp Pulse Resp B/P (MAP) Pulse Ox O2 Delivery O2 Flow Rate FiO2 08/12/24 14:15 86 26 187/107 (133) 100 100 08/12/24 13:26 Mechanical Ventilator+ 08/12/24 11:22 2 08/12/24 09:00 98.4 98.4 Intake/Output Intake and Output 08/12/24 07:00 Intake Total 365 ml Balance 365 ml Intake Oral 240 ml IV Total 125 ml # Voids 2 Medications Current Medications Medications Dose Ordered Sig/Kristen Route Start Time Stop Time Status Last Admin Dose Admin Sodium Chloride 10 ml Q8HR IV 08/11/24 14:00 08/12/24 05:39 10 ML Acetaminophen/ Hydrocodone Bitart 1 tab Q4HP PRN PO 08/11/24 13:00 Ondansetron HCl 4 mg Q4HP PRN IV 08/11/24 13:00 Docusate Sodium 100 mg BIDPRN PRN PO 08/11/24 13:00 Acetaminophen 650 mg Q6HP PRN PO 08/11/24 13:00 Azithromycin 250 ml @ 125 mls/hr DAILY IV 08/12/24 10:00 08/12/24 09:57 125 MLS/HR Albuterol 2.5 mg Q6HWA NEB 08/11/24 18:00 08/12/24 11:22 2.5 MG Ipratropium [facility] 0.5 mg Q6HWA NEB 08/11/24 18:00 08/12/24 11:22 0.5 MG Hydralazine HCl 10 mg Q6HP PRN IV 08/11/24 13:00 Furosemide 40 mg DAILY PO 08/12/24 10:00 08/12/24 09:57 40 MG Latanoprost 1 drop QPM EACHEYE 08/11/24 18:00 08/11/24 18:00 1 DROP Sildenafil Citrate 20 mg TID PO 08/11/24 14:00 08/12/24 05:39 20 MG Carvedilol 25 mg BID PO 08/11/24 22:00 08/12/24 09:56 25 MG Patient Own Medication 1 drop BID EACHEYE 08/11/24 22:00 Ferrous Sulfate 325 mg BID PO 08/11/24 22:00 08/12/24 09:56 325 MG Albuterol 2.5 mg Q2HPRN PRN NEB 08/11/24 20:45 Ipr[address]rop[address] [facility] 0.5 mg Q2HPRN PRN NEB 08/11/24 20:45 Dopamine HCl/ Dextrose 250 ml @ 13.069 mls/ hr Q19H8M IV 08/12/24 13:45 Epinephrine HCl 250 ml @ 7.5 mls/hr Q24H IV 08/12/24 13:45 Norepinephrine Bitartrate 250 ml @ 3.75 mls/hr Q24H IV 08/12/24 13:45 08/12/24 11:58 3.75 MLS/HR Phenylephrine HCl 250 ml @ 30 mls/hr Q8H20M IV 08/12/24 13:45 Propofol 100 ml @ 2.091 mls/ hr Q24H IV 08/12/24 13:45 Midazolam HCl 50 ml @ 1 mls/hr Q24H IV 08/12/24 13:45 Fentanyl Citrate 250 ml @ 2.5 mls/hr Q24H IV 08/12/24 13:45 Hydrocortisone Sodium Succinate 100 mg Q8HR IV 08/12/24 22:00 Vasopressin 20 units/Sodium Chloride 100 ml @ 9 mls/hr Q11H7M IV 08/12/24 13:45 Laboratory Results Laboratory Tests 08/12/24 06:21 Chemistry Test 08/12/24 06:21 Albumin 4.2 g/dL (3.2-4.8) Calcium Level 9.6 mg/dL (8.7-10.4) Total Protein 6.9 g/dL (5.7-8.2) LFT Test 08/12/24 06:21 Alanine Aminotransferase (ALT) 17 U/L (7-40) Alkaline Phosphatase 119 U/L (46-116) H Aspartate Amino Transferase (AST) 20 U/L (13-40) Total Bilirubin 0.5 mg/dL (0.2-1.0) Blood Gas Results Test 08/12/24 12:20 Arterial Blood pH 7.215 (7.350-7.450) FiO2 % 100.0 Labs and/or images reviewed: Labs reviewed by me, Image(s) reviewed by me Assessment/Plan Assessment/Plan Patient coded at 11:30 a.m. on 08/12/2024, before I saw the patient Cardiac arrest successfully resuscitated, status post intubation by Dr. White continue pressors and sedation Acute hypoxic respiratory failure: Intubated Possible aspiration pneumonia: Rocephin azithromycin Acute COPD exacerbation: Albuterol Atrovent Possible seizures after admission: Neurology consult for Dr. Mayorga Atrial flutter and bradycardia: Consult for Cardiology Dr. Schulte History of pulmonary hypertension: Continue sildenafil Acute exacerbation of chronic systolic congestive heart failure: Lasix Coreg D-dimer ordered History of gout History of rheumatoid arthritis DVT prophylaxis SCDs GI prophylaxis pantoprazole Condition serious Prognosis poor Seen in [facility] [phone], Debbie and care asst [facility] [phone] bedside and I discussed the current diagnosis management and poor prognosis with them. Time Spent 70 minutes Patient is full code Advanced care planning time 20 mts Plan discussed with: Patient My Orders Orders - XIOMARA MARKS MD Procedure Category Date Status Time D-Dimer LAB 08/12/24 Logged 14:47 *Consult CONS 08/12/24 Transmitted / 14:53 * Cardiology Consult CONS 08/12/24 Transmitted 14:53 * Neurology Consult CONS 08/12/24 Transmitted 14:53 Date of Service: Aug 12, 2024 Billing Provider: XIOMARA MARKS MD Common Visit Codes: [id number] CARE 30-74 MIN XIOMARA MARKS MD Aug 12, 2024 15:08
[2024-08-12] MEDS: PANTOPRAZOLE 40 MG/10 ML VIAL INJ IV ONE (15:22)
[2024-08-12] MEDS ORDERED: ATROPINE SULF 1 MG/10ml SYR IV ONE (15:40)
[2024-08-12 15:43] LABS: Base Excess 8.2 mmol/L (-2.0-3.0)
--- NOTE | 2024-08-12 19:21 | DVHINCON2 ---
GREGORY MENCHACA [facility] 08/12/241920: Date Seen: Aug 12, 2024 Referring Physician MD Marco A Reason for Consultation A-flutter History of Present Illness This is a 73-year-old female who presented to the emergency room via EMS with a chief complaint of SOB. At time of assessment, the patient was found endotracheally intubated with 60% FiO2, on dual vasopressors, and chemically sedated. Information obtained from records and daughter at bedside. It appears the patient spoke with her daughter over the phone with complaints of SOB with an associated cough which has been worsening over the past week. Upon EMS arrival, the patient was found with O2 saturation levels in the 80s% for which she was provided supplemental oxygenation. She was subsequently endotracheally intubated during a Code Blue earlier today. Upon assessment, a 12 lead electrocardiogram was obtained revealing a sinus rhythm with PVCs. Serial t roponin levels are negative. Follows up in the outpatient setting with primary net ui developer Dr. Quintero/Dr. Brink. Significant medical history includes moderate pulmonary hypertension, hypertension, COPD with O2 dependence, rheumatoid arthritis, and gout. Past Medical History Past medical history reviewed. No other significant than mentioned above. Past Surgical History Right foot Bilateral total knee replacement BTL Tonsillectomy Family History: Alcoholism G8 SISTER, , Cause: Natural of unknown etiology, Not a twin Cardiovascular disease G8 MOTHER, , Cause: Natural of unknown etiology, Not a twin G8 BROTHER, , Cause: Natural of unknown etiology, Not a twin Glaucoma G8 FATHER Ischemic heart disease G8 MOTHER, , Cause: Natural of unknown etiology, Not a twin Family History Family history reviewed. Social History Denies the use of illicit drugs, alcohol, or tobacco use. Allergies: Coded Allergies: Ceftriaxone (Verified Allergy, Intermediate, 12/31/23) RASH COUGH Levofloxacin (Verified Allergy, Unknown, 12/31/23) Home Meds Active Scripts Hydralazine Hcl (Hydralazine Hcl) 10 Mg Tab, 10 MG PO DAILY PRN for 20 Days, #20 TAB Prov:GIOVANY RIBERA RESIDENT 04/12/24 Reported Medications Latanoprost (LATANOPROST) 0.005 % Viktoriya, 1 DROP EACHEYE QPM for GLAUCOMA, #7.5 ML 3 Refills 8/5/24 Dorzolamide-Timolol (Dorzolamide Hcl/Timolol M) 1 Ml Viktoriya, 1 DROP EACHEYE BID, #10 ML 6 Refills 12/31/23 Pvaeuokavbb-Qvpaswuakrnl-Atcwb (Trelegy Ellipta 200-62.5-25 Mcg/INH) 1 Aer Aer, 1 AER IN DAILY for COPD, AER 12/31/23 Sildenafil Citrate (SILDENAFIL CITRATE) 20 Mg Tab, 20 MG PO TID for PUL. HTN, TAB 12/31/23 Furosemide (Furosemide) 40 Mg Tab, 1 TAB PO DAILY 07/31/22 Carvedilol (Carvedilol) 25 Mg Tab, 1 TAB PO BID 07/31/22 Ferrous Sulfate (Ferosul) 325 Mg Tab, 1 TAB PO BID 07/31/22 Home Meds Home medications reviewed. Current Medications Current Medications Medications (Trade) Dose Ordered Sig/Kristen Route PRN Reason Start Time Stop Time Status Last Admin Ceftriaxone Sodium 50 ml @ 100 mls/hr DAILY@09 IV 08/12/24 09:00 08/11/24 14:58 DC Azithromycin 250 ml @ 125 mls/hr DAILY IV 08/12/24 10:00 08/12/24 09:57 Methylprednisolone Sodium Succinate (Solu Medrol) 40 mg BID IV 08/11/24 22:00 08/12/24 13:40 DC 08/12/24 09:57 Furosemide (Lasix Tablet) 40 mg DAILY PO 08/12/24 10:00 08/12/24 09:57 Carvedilol (Coreg Tablet) 25 mg BID PO 08/11/24 22:00 08/12/24 09:56 Patient Own Medication 1 drop BID EACHEYE 08/11/24 22:00 Ferrous Sulfate 325 mg BID PO 08/11/24 22:00 08/12/24 09:56 Cefepime HCl 50 ml @ 12.5 mls/hr Q12HR IV 08/11/24 22:00 08/11/24 18:13 DC Albuterol (Ventolin Medneb) 2.5 mg Q2HPRN PRN NEB SHORTNESS OF BREATH 08/11/24 20:45 Ipratropium Ruth (Atrovent Medneb) 0.5 mg Q2HPRN PRN NEB SHORTNESS OF BREATH 08/11/24 20:45 Dopamine HCl/ Dextrose 250 ml @ 13.069 mls/ hr Q19H8M IV 08/12/24 13:45 08/12/24 12:08 Epinephrine HCl 250 ml @ 7.5 mls/hr Q24H IV 08/12/24 13:45 08/12/24 12:15 Norepinephrine Bitartrate 250 ml @ 3.75 mls/hr Q24H IV 08/12/24 13:45 08/12/24 11:58 Phenylephrine HCl 250 ml @ 30 mls/hr Q8H20M IV 08/12/24 13:45 Propofol 100 ml @ 2.091 mls/ hr Q24H IV 08/12/24 13:45 Midazolam HCl 50 ml @ 1 mls/hr Q24H IV 08/12/24 13:45 08/12/24 12:30 Fentanyl Citrate 250 ml @ 2.5 mls/hr Q24H IV 08/12/24 13:45 08/12/24 12:00 Hydrocortisone Sodium Succinate (Solu-CORTEF INJECTION) 100 mg Q8HR IV 08/12/24 22:00 Vasopressin 20 units/Sodium Chloride 100 ml @ 9 mls/hr Q11H7M IV 08/12/24 13:45 08/12/24 12:45 Pantoprazole Sodium (Protonix) 40 mg DAILY IV 08/13/24 10:00 Review of Systems Constitutional: No symptom reported Ears, Nose, & Throat: No symptom reported Eyes: No symptom reported Neurological: No symptoms reported Pulmonary/Respiratory: SOB, cough Cardiovascular: No symptom reported Gastrointestinal: No symptom reported Genitourinary: No symptom reported Musculoskeletal: No symptom reported Skin: No symptom reported Psychiatric: No symptom reported Endocrine: No symptom reported Hemotologic/Lymphatic: No symptom reported Vital Signs Vital Signs Date Time Temp Pulse Resp B/P (MAP) Pulse Ox O2 Delivery O2 Flow Rate FiO2 08/12/24 18:30 161/114 08/12/24 18:10 99 Mechanical Ventilator+ 60 60 08/12/24 18:00 68 26 08/12/24 16:31 97.9 208.2 08/12/24 11:22 2 Physical Exam General Appearance: Endotracheally intubated with 60% FiO2. Chemically sedated. On dual vasopressor Head Exam: Normal inspection Neck Exam: Normal inspection. Normal alignment Pulmonary/Respiratory: Coarse bilateral breath sounds Cardiovascular/Chest: Regular rate and rhythm. S1, S2. Sinus rhythm with PVCs. No murmurs. No JVD. Peripheral Pulses: 2+ Radial (R). 2+ Radial (L). 2+ Pedal (R). 2+ Pedal (L) Abdominal Exam: Normal bowel sounds. Soft. Ankle Exam: Negative ankle edema Lower extremities: Negative lower extremity edema Neuro/Mental Status: Chemically sedated Thoughts/Psych: Unable to assess at this time Appearance: Withdrawn Skin Exam: Normal inspection. Normal color. Warm. Dry Labs/Diagnostic Data Labs Test 08/12/24 15:55 08/12/24 15:28 08/12/24 12:20 08/12/24 06:21 Range/Units D-Dimer, Quantitative 22.61 H 0.0-0.49 mg/L FEU Blood Gas Specimen Type Arterial Blood Gas Sample Site Left radial Blood Gas Patient Temperature 37.0 Arterial Blood Date Drawn [id number] Arterial Blood pH 7.474 H 7.350-7.450 Arterial Blood Partial Pressure CO2 45.8 H 32.0-45.0 mmHg Arterial Blood Partial Pressure O2 245.1 H 83.0-108.0 mmHg Arterial Blood HCO3 32.9 H 21.0-28.0 mmol/L Arterial Blood Oxygen Saturation 99.6 H 94.0-98.0 % Arterial Blood Base Excess 8.2 H -2.0-3.0 mmol/L Arterial Blood Oxyhemoglobin 98.1 H 94.0-98.0 % Arterial Blood Carboxyhemoglobin 0.9 0.5-1.5 % Arterial Blood Methemoglobin 0.6 0.0-1.5 % Harpreet Test Modified Blood Gas Total Hemoglobin 13.50 12.0-16.0 g/dL Blood Gas Set Respiration Rate 26.0 Blood Gas Modality Vent - ac FiO2 % 100.0 Blood Gas Inspiratory Pressure 33.0 Blood Gas PEEP or CPAP 5.0 Blood Gas Liter Flow 15.00 Blood Gas Critical Value Read Back Yes Blood Gas Notified Whom Blood Gas Notified Time [id number] Blood Gas Notified By Bdownard validation engineer White Blood Count 7.2 4.4-10.8 10^3/uL Red Blood Count 4.25 4.0-5.20 10^6/uL Hemoglobin 11.9 L 12.2-16.2 g/dL Hematocrit 36.5 # 36.0-46.0 % Mean Corpuscular Volume 85.7 80.0-100.0 fL Mean Corpuscular Hemoglobin 27.9 L 28.0-32.0 pg Mean Corpuscular Hemoglobin Concent 32.6 32.0-36.0 g/dL Red Cell Distribution Width 14.7 H 11.8-14.3 % Platelet Count 302 140-450 10^3/uL Mean Platelet Volume 8.6 6.9-10.8 fL Neutrophils (%) (Auto) 78.5 37.0-80.0 % Lymphocytes (%) (Auto) 12.7 10.0-50.0 % Monocytes (%) (Auto) 8.4 0.0-12.0 % Eosinophils (%) (Auto) 0.0 0.0-7.0 % Basophils (%) (Auto) 0.4 0.0-2.0 % Neutrophils # (Auto) 5.7 1.6-8.6 10 ^3/uL Lymphocytes # (Auto) 0.9 0.4-5.4 10 ^3/uL Monocytes # (Auto) 0.6 0-1.3 10 ^3/uL Eosinophils # (Auto) 0 0-0.8 10 ^3/uL Basophils # (Auto) 0 0-0.2 10 ^3/uL Nucleated Red Blood Cells 0.0 % Sodium Level 142 # 136-145 mmol/L Potassium Level 4.0 3.5-5.1 mmol/L Chloride Level 100 98-107 mmol/L Carbon Dioxide Level 34 H 20-31 mmol/L Anion Gap 8 5-15 Blood Urea Nitrogen 18 9-23 mg/dL Creatinine 0.87 0.550-1.02 mg/dL Glomerular Filtration Rate Calc 71 >90 mL/min BUN/Creatinine Ratio 20.7 H 10.0-20.0 Serum Glucose 129 H 74-106 mg/dL Calcium Level 9.6 8.7-10.4 mg/dL Total Bilirubin 0.5 0.2-1.0 mg/dL Aspartate Amino Transferase (AST) 20 13-40 U/L Alanine Aminotransferase (ALT) 17 7-40 U/L Alkaline Phosphatase 119 H 46-116 U/L Total Protein 6.9 5.7-8.2 g/dL Albumin 4.2 3.2-4.8 g/dL Test 08/11/24 11:40 08/11/24 08:33 Range/Units Troponin I High Sensitivity 23 </=34 ng/L B-Type Natriuretic Peptide 273.61 0-100 pg/mL Assessment Cardiopulmonary arrest with ROSC Acute on chronic hypoxic respiratory failure COPD exacerbation Pulmonary hypertension Type III, moderate degree Plan/Recommendation (Dr. Caro) A transthoracic echocardiogram from 04/12/2024 revealed an LVEF of 50% with moderate LVH, RV and left atrium enlargement. The patient also underwent a recent right and left cardiac catheterization on 12/2023 revealing no significant coronary artery disease, elevated left ventricular end-diastolic pressures indicating diastolic heart failure, and pulmonary hypertension deemed to be multifactorial primarily secondary to diastolic heart failure in addition to chronic lung processes for which she was initiated on Sildenafil therapy on 04/2024. A twelve lead electrocardiogram was obtained revealing a sinus rhythm with PVCs. We will obtain a repeat transthoracic echocardiogram given car diopulmonary arrest. In the meantime, titrate down vasopressors given elevated SBPs. Rest of plan per clinical course. Thank you for allowing us to participate in this patient's care. Please call if you have any questions or concerns. Critical care time: 40 min. This medical document was created using an electronic medical record system with voice recognition software and computerized dictation system. Although this document has been carefully reviewed, there might still be some phonetic and typographical errors. Occasional wrong-word or ``sound-alike substitutions may have occurred due to the inherent limitations of voice recognition software. These areas are purely typographical due to imperfections of the software programs and do not reflect any compromise in the patient's medical care. Please read the chart carefully and recognize, using context, where these substitutions have occurred. Plan discussed with: Daughter, Other NYHA Physical activity limitations: NA Date of Service: Aug 12, 2024 Billing Provider: GREGORY MENCHACA [facility] Cardiology Common Codes: 43127-MKFFDHAB CARE 30-74 MIN CHET TAYLOR DO 08/12/241932: Date Seen: Aug 12, 2024 Family History: Alcoholism G8 SISTER, , Cause: Natural of unknown etiology, Not a twin Cardiovascular disease G8 MOTHER, , Cause: Natural of unknown etiology, Not a twin G8 BROTHER, , Cause: Natural of unknown etiology, Not a twin Glaucoma G8 FATHER Ischemic heart disease G8 MOTHER, , Cause: Natural of unknown etiology, Not a twin Allergies: Coded Allergies: Ceftriaxone (Verified Allergy, Intermediate, 12/31/23) RASH COUGH Levofloxacin (Verified Allergy, Unknown, 12/31/23) Home Meds Active Scripts Hydralazine Hcl (Hydralazine Hcl) 10 Mg Tab, 10 MG PO DAILY PRN for 20 Days, #20 TAB Prov:GIOVANY RIBERA RESIDENT 04/12/24 Reported Medications Latanoprost (LATANOPROST) 0.005 % Viktoriya, 1 DROP EACHEYE QPM for GLAUCOMA, #7.5 ML 3 Refills 12/31/23 Dorzolamide-Timolol (Dorzolamide Hcl/Timolol M) 1 Ml Viktoriya, 1 DROP EACHEYE BID, #10 ML 6 Refills 12/31/23 Czafdejyith-Ihkjfjhfpwhl-Pubjq (Trelegy Ellipta 200-62.5-25 Mcg/INH) 1 Aer Aer, 1 AER IN DAILY for COPD, AER 12/31/23 Sildenafil Citrate (SILDENAFIL CITRATE) 20 Mg Tab, 20 MG PO TID for PUL. HTN, TAB 12/31/23 Furosemide (Furosemide) 40 Mg Tab, 1 TAB PO DAILY 07/31/22 Carvedilol (Carvedilol) 25 Mg Tab, 1 TAB PO BID 07/31/22 Ferrous Sulfate (Ferosul) 325 Mg Tab, 1 TAB PO BID 07/31/22 Plan/Recommendation The patient was seen and discussed with Olga Menchaca NP. I agree with her Assessment and Plan, which was formulated with me. Plan discussed with: Other Date of Service: Aug 12, 2024 Billing Provider: CHET TAYLOR DO Cardiology Common Codes: 12221-[id number] CARE 30-74 MIN GREGORY MENCHACA [employer] Aug 12, 2024 19:21 CHET TAYLOR DO Aug 12, 2024 19:33
--- NOTE | 2024-08-12 20:22 | DVHINCON2 ---
Date of service: Aug 12, [address] Strickland Reason for Consultation Possible seizure History of Present Illness Ms. Recinos is a 73 years old female with a history of hypertension, dyslipidemia, coronary artery disease, heart attack, congestive heart failure, asthma, COPD on home oxygen, gout, anemia, the patient was admitted found her fdc on 08/11/2024 with a chief company of shortness of breath, at this time, she was intubated, sedated, nonresponsive to stroke painful stimuli, the history is obtained from her nurse and chart review The patient was admitted to the telemetry, around 08/12/2024 11:31, when she was going through respiratory therapy, the patient had an event where her body stiffened up with shaking, and she becomes cyanotic, which was followed by c ataract arrest, and code blue called out, it took about 18 minutes to resuscitate her, meanwhile she was received intubation, and was transferred to ICU after worse ABG, 08/12/2024: Respiratory acidosis, hypoxia WBC/HB/PLT/MCV, 08/12/2024: 7.2/11.9/302/85.7 CMP, 08/12/2024: Unremarkable HGB A1c, 04/11/2024: 500 TG/HDL/LDL/HDL, 05/2023: 101/2026/186/45 Vitamin B12, 03/2024: 1161 TSH, 03/2024: 1.39 Chest x-ray, 08/12/2024: Left central venous catheter overlies the left upper chest and may be not position. Clinical correlation advised. Endotracheal tube in satisfactory position. Left central venous catheter in uncertain position. Past Medical History Hypertension, dyslipidemia, coronary artery disease, heart attack, congestive heart failure, asthma, COPD on home oxygen, gout, anemia Past Surgical History Tonsillectomy, tubal ligation, bilateral knee surgery Family History: Alcoholism G8 SISTER, , Cause: Natural of unknown etiology, Not a twin Cardiovascular disease G8 MOTHER, , Cause: Natural of unknown etiology, Not a twin G8 BROTHER, , Cause: Natural of unknown etiology, Not a twin Glaucoma G8 FATHER Ischemic heart disease G8 MOTHER, , Cause: Natural of unknown etiology, Not a twin Family History Heart disease, alcohol problem Social History Smoker: Non-Smoker, Quit Greater Than 1 Year Alcohol: Denies ETOH Use Drugs: Denies Drug Use Allergies: Coded Allergies: Ceftriaxone (Verified Allergy, Intermediate, 12/31/23) RASH COUGH Levofloxacin (Verified Allergy, Unknown, 12/31/23) Home Meds Active Scripts Hydralazine Hcl (Hydralazine Hcl) 10 Mg Tab, 10 MG PO DAILY PRN for 20 Days, #20 TAB Prov:GIOVANY RIBERA RESIDENT 04/12/24 Reported Medications Latanoprost (LATANOPROST) 0.005 % Viktoriya, 1 DROP EACHEYE QPM for GLAUCOMA, #7.5 ML 3 Refills 12/31/23 Dorzolamide-Timolol (Dorzolamide Hcl/Timolol M) 1 Ml Viktoriya, 1 DROP EACHEYE BID, #10 ML 6 Refills 12/31/23 Xpoooaucytb-Rbcsehmncqzp-Vvffj (Trelegy Ellipta 200-62.5-25 Mcg/INH) 1 Aer Aer, 1 AER IN DAILY for COPD, AER 12/31/23 Sildenafil Citrate (SILDENAFIL CITRATE) 20 Mg Tab, 20 MG PO TID for PUL. HTN, TAB 12/31/23 Furosemide (Furosemide) 40 Mg Tab, 1 TAB PO DAILY 07/31/22 Carvedilol (Carvedilol) 25 Mg Tab, 1 TAB PO BID 07/31/22 Ferrous Sulfate (Ferosul) 325 Mg Tab, 1 TAB PO BID 07/31/22 Current Medications Current Medications Medications (Trade) Dose Ordered Sig/Kristen Route PRN Reason Start Time Stop Time Status Last Admin Ceftriaxone Sodium 50 ml @ 100 mls/hr DAILY@09 IV 08/12/24 09:00 08/11/24 14:58 DC Azithromycin 250 ml @ 125 mls/hr DAILY IV 08/12/24 10:00 08/12/24 09:57 Methylprednisolone Sodium Succinate (Solu Medrol) 40 mg BID IV 08/11/24 22:00 08/12/24 13:40 DC 08/12/24 09:57 Furosemide (Lasix Tablet) 40 mg DAILY PO 08/12/24 10:00 08/12/24 09:57 Carvedilol (Coreg Tablet) 25 mg BID PO 08/11/24 22:00 08/12/24 09:56 Patient Own Medication 1 drop BID EACHEYE 08/11/24 22:00 Ferrous Sulfate 325 mg BID PO 08/11/24 22:00 08/12/24 09:56 Cefepime HCl 50 ml @ 12.5 mls/hr Q12HR IV 08/11/24 22:00 08/11/24 18:13 DC Albuterol (Ventolin Medneb) 2.5 mg Q2HPRN PRN NEB SHORTNESS OF BREATH 08/11/24 20:45 Ipratropium [place] (Atrovent Medneb) 0.5 mg Q2HPRN PRN NEB SHORTNESS OF BREATH 08/11/24 20:45 Dopamine HCl/ Dextrose 250 ml @ 13.069 mls/ hr Q19H8M IV 08/12/24 13:45 08/12/24 19:20 DC 08/12/24 12:08 Epinephrine HCl 250 ml @ 7.5 mls/hr Q24H IV 08/12/24 13:45 08/12/24 19:20 DC 08/12/24 12:15 Norepinephrine Bitartrate 250 ml @ 3.75 mls/hr Q24H IV 08/12/24 13:45 08/12/24 11:58 Phenylephrine HCl 250 ml @ 30 mls/hr Q8H20M IV 08/12/24 13:45 08/12/24 19:20 DC Propofol 100 ml @ 2.091 mls/ hr Q24H IV 08/12/24 13:45 Midazolam HCl 50 ml @ 1 mls/hr Q24H IV 08/12/24 13:45 08/12/24 12:30 Fentanyl Citrate 250 ml @ 2.5 mls/hr Q24H IV 08/12/24 13:45 08/12/24 12:00 Hydrocortisone Sodium Succinate (Solu-CORTEF INJECTION) 100 mg Q8HR IV 08/12/24 22:00 Vasopressin 20 units/Sodium Chloride 100 ml @ 9 mls/hr Q11H7M IV 08/12/24 13:45 08/12/24 12:45 Pantoprazole Sodium (Protonix) 40 mg DAILY IV 08/13/24 10:00 Review of Systems Unobtainable Vital Signs Vital Signs Date Time Temp Pulse Resp B/P (MAP) Pulse Ox O2 Delivery O2 Flow Rate FiO2 08/12/24 18:30 161/114 08/12/24 18:10 99 Mechanical Ventilator+ 60 60 08/12/24 18:00 68 26 08/12/24 16:31 97.9 208.2 08/12/24 11:22 2 Physical Exam The patient is well-nourished and well-developed with no distress. The patient is intubated HEENT: Normocephalic, neck supple, no carotid bruits Lungs: Clear to auscultation Cardiovascular: Regular rate and region, S1, S2, no murmurs Abdomen: Soft, nontender, normal bowel sounds MENTAL STATUS: Not responsive to the surroundings, CRANIAL NERVES: Pupils are equal, round and reactive.There are corneal reflexes and doll's eyes phenomenon. No signs of facial weakness. There are weak gagging or coughing reflexes SENSATION: No responses to pain stimuli. MOTOR: Normal tone in the upper and lower extremity. Normal muscle bulk. No fasciculations. No spontaneous movement. REFLEXES: Deep tendon reflexes are symmetrical. No pathological reflexes. CEREBELLAR/COORDINATION: Deferred GAIT/STATION: deferred. Labs/Diagnostic Data Labs Test 08/12/24 15:55 08/12/24 15:28 08/12/24 12:20 08/12/24 06:21 Range/Units D-Dimer, Quantitative 22.61 H 0.0-0.49 mg/L FEU Blood Gas Specimen Type Arterial Blood Gas Sample Site Left radial Blood Gas Patient Temperature 37.0 Arterial Blood Date Drawn [id number] Arterial Blood pH 7.474 H 7.350-7.450 Arterial Blood Partial Pressure CO2 45.8 H 32.0-45.0 mmHg Arterial Blood Partial Pressure O2 245.1 H 83.0-108.0 mmHg Arterial Blood HCO3 32.9 H 21.0-28.0 mmol/L Arterial Blood Oxygen Saturation 99.6 H 94.0-98.0 % Arterial Blood Base Excess 8.2 H -2.0-3.0 mmol/L Arterial Blood Oxyhemoglobin 98.1 H 94.0-98.0 % Arterial Blood Carboxyhemoglobin 0.9 0.5-1.5 % Arterial Blood Methemoglobin 0.6 0.0-1.5 % Harpreet Test Modified Blood Gas Total Hemoglobin 13.50 12.0-16.0 g/dL Blood Gas Set Respiration Rate 26.0 Blood Gas Modality Vent - ac FiO2 % 100.0 Blood Gas Inspiratory Pressure 33.0 Blood Gas PEEP or CPAP 5.0 Blood Gas Liter Flow 15.00 Blood Gas Critical Value Read Back Yes Blood Gas Notified Whom Blood Gas Notified Time [id number] Blood Gas Notified By Bdownard ic designer custom White Blood Count 7.2 4.4-10.8 10^3/uL Red Blood Count 4.25 4.0-5.20 10^6/uL Hemoglobin 11.9 L 12.2-16.2 g/dL Hematocrit 36.5 # 36.0-46.0 % Mean Corpuscular Volume 85.7 80.0-100.0 fL Mean Corpuscular Hemoglobin 27.9 L 28.0-32.0 pg Mean Corpuscular Hemoglobin Concent 32.6 32.0-36.0 g/dL Red Cell Distribution Width 14.7 H 11.8-14.3 % Platelet Count 302 140-450 10^3/uL Mean Platelet Volume 8.6 6.9-10.8 fL Neutrophils (%) (Auto) 78.5 37.0-80.0 % Lymphocytes (%) (Auto) 12.7 10.0-50.0 % Monocytes (%) (Auto) 8.4 0.0-12.0 % Eosinophils (%) (Auto) 0.0 0.0-7.0 % Basophils (%) (Auto) 0.4 0.0-2.0 % Neutrophils # (Auto) 5.7 1.6-8.6 10 ^3/uL Lymphocytes # (Auto) 0.9 0.4-5.4 10 ^3/uL Monocytes # (Auto) 0.6 0-1.3 10 ^3/uL Eosinophils # (Auto) 0 0-0.8 10 ^3/uL Basophils # (Auto) 0 0-0.2 10 ^3/uL Nucleated Red Blood Cells 0.0 % Sodium Level 142 # 136-145 mmol/L Potassium Level 4.0 3.5-5.1 mmol/L Chloride Level 100 98-107 mmol/L Carbon Dioxide Level 34 H 20-31 mmol/L Anion Gap 8 5-15 Blood Urea Nitrogen 18 9-23 mg/dL Creatinine 0.87 0.550-1.02 mg/dL Glomerular Filtration Rate Calc 71 >90 mL/min BUN/Creatinine Ratio 20.7 H 10.0-20.0 Serum Glucose 129 H 74-106 mg/dL Calcium Level 9.6 8.7-10.4 mg/dL Total Bilirubin 0.5 0.2-1.0 mg/dL Aspartate Amino Transferase (AST) 20 13-40 U/L Alanine Aminotransferase (ALT) 17 7-40 U/L Alkaline Phosphatase 119 H 46-116 U/L Total Protein 6.9 5.7-8.2 g/dL Albumin 4.2 3.2-4.8 g/dL Test 08/11/24 11:40 08/11/24 08:33 Range/Units Troponin I High Sensitivity 23 </=34 ng/L B-Type Natriuretic Peptide 273.61 0-100 pg/mL Assessment Coma Hypoxic encephalopathy Metabolic encephalopathy Toxic encephalopathy Cardiopulmonary arrest Respiratory failure Hypoxia Status post CPR Acidosis Elevated D-dimer, to rule out pulmonary emboli Seizure-like activity to rule out seizure attack Plan/Recommendation Monitoring Supportive treatment ICU care Follow-up labs CT head CTA chest EEG Respiratory support/vent management Stabilize vitals/pressor drip Oxygen DVT prophylaxis GI prophylaxis More recommendation per clinical course Progress: Guarded Critical care time spent 45 minutes This medical document was created using an electronic medical record system with [employer]bit dictation system. Although this document has been carefully reviewed, there may still be some phonetic and typographical errors. These areas are purely typographical due to imperfections of the software programs, and do not reflect any compromise in the patient's medical care. Plan discussed with: Other PATRIZIA SHERWOOD MD Aug 12, 2024 20:22
[2024-08-12 20:44] LABS: Base Excess 10.6 mmol/L (-2.0-3.0)
[2024-08-12] MEDS: HYDROCORTISONE SOD SUCC 100 MG/2ML INJ VIAL IV SCH (21:39)
[2024-08-12 21:50] LABS: Base Excess 9.3 mmol/L (-2.0-3.0)
[2024-08-12] MEDS: IOHEXOL 350 MG/ML 100ML IJ ONE (21:59)
--- NOTE | 2024-08-12 22:07 | DVHNC2 ---
Procedure - Right Radial Arterial Line procedure note Indication: Hemodynamic monitoring, frequent blood ABG draws. Knitted Cloth Examiner: Dr. White Date: 08/12/24 Time: 1415 hours Consent: Consent was obtained from patient's healthcare proxy prior to procedure. Indications, risks, and benefits were explained at length. Patient medications and allergies reviewed. The risks and benefits of the procedure and the sedation options and risk were discussed with the patient's healthcare proxy. All questions were answered and informed consent was obtained. Patient identification and proposed procedure were verified prior to the procedure by the physician, and a nurse in the patient's room. The heart rate, respiratory rate, oxygen saturations, blood pressure, adequacy of pulmonary ventilation, and response to care were monitored throughout the procedure. The physical status of the patient was reassessed after the procedure. Procedure summary: A time-out was performed. My hands were washed immediately prior to the procedure. I wore surgical cap, mask with protective eyewear, sterile gown and sterile gloves throughout the procedure. After an Harpreet test was performed to ensure adequate perfusion, the RIGHT wrist was prepped using chlorhexidine scrub and draped in sterile fashion using sterile towels. The radial pulse was identified with the use of ultrasound. The wrist was positioned in the usual fashion. Anesthesia was achieved using 1% lidocaine. Using the radial arterial line kit, needle was inserted into the radial artery using ultrasound guidance. Arterial blood flow was seen to pulsate in the flash chamber. The internal guidewire was advanced easily into the radial artery. The catheter was then advanced over the wire and the needle and wire were withdrawn. The catheter was sutured into place with 1 sutures. A sterile Biopatch and Tegaderm was placed o annabelle the catheter at the insertion site. The patient tolerated the procedure without any hemodynamic compromise. At the time of procedure completion, the catheter was connected to the third steel pourer and calibrated. Appropriate waveform and blood pressure tracing was observed. Estimated blood loss is less than 5 mL. CPT: 88364 Arterial line insertion CPT: 00961 US add-on EDITH WHITE MD Aug 12, 2024 22:07
--- NOTE | 2024-08-12 22:13 | DVHINCON2 ---
Date of service: Aug 12, 2024 Referring Physician Demetris Strickland MD Reason for Consultation Acute hypoxic respiratory failure requiring mechanical ventilator History of Present Illness A 73-year-old woman with past medical history of asthma, COPD, home oxygen at 2 LPM NC, coronary artery disease, CHF, WI, hypertension, hyperlipidemia and rheumatoid arthritis who presented to ED on 08/11/24 with c/o shortness of breath. Patient reports being admitted about 1 month ago for abdominal pain, pneumonia. Patient lives alone, and was sent to [facility] for rehabilitation. Pt expressed wish to go home after being seen here since did not feel she was improving at rehab center. Patient reported shortness of breath, onset AM of presentation. Chest x-ray showed bibasilar airspace opacities. Patient was admitted for further care. Pulmonary consultation is requested for evaluation and management of acute hypoxic respiratory failure requiring mechanical ventilator. Review of Systems: Unable to obtain d/t intubated status. Past Medical History: Asthma, COPD (home oxygen at 2 LPM NC), coronary artery disease, CHF, WI, hypertension, hyperlipidemia and rheumatoid arthritis Past Surgical History: Other (right foot), Total knee replacement (Bilateral), Tubal Ligation, Tonsillectomy Medications: Reviewed. Allergies: Ceftriaxone and levofloxacin Family History: Alcoholism Cardiovascular disease Glaucoma Ischemic heart disease. Social History: Nonsmoker. No alcohol or illicit drug use. Family History: Alcoholism G8 SISTER, , Cause: Natural of unknown etiology, Not a twin Cardiovascular disease G8 MOTHER, , Cause: Natural of unknown etiology, Not a twin G8 BROTHER, , Cause: Natural of unknown etiology, Not a twin Glaucoma G8 FATHER Ischemic heart disease G8 MOTHER, , Cause: Natural of unknown etiology, Not a twin Allergies: Coded Allergies: Ceftriaxone (Verified Allergy, Intermediate, 12/31/23) RASH COUGH Levofloxacin (Verified Allergy, Unknown, 12/31/23) Home Meds Active Scripts Hydralazine Hcl (Hydralazine Hcl) 10 Mg Tab, 10 MG PO DAILY PRN for 20 Days, #20 TAB Prov:GIOVANY RIBERA RESIDENT 04/12/24 Reported Medications Latanoprost (LATANOPROST) 0.005 % Viktoriya, 1 DROP EACHEYE QPM for GLAUCOMA, #7.5 ML 3 Refills 8/5/24 Dorzolamide-Timolol (Dorzolamide Hcl/Timolol M) 1 Ml Viktoriya, 1 DROP EACHEYE BID, #10 ML 6 Refills 12/31/23 Vdyqbmlxlwh-Nzxdhkrlwsxl-Pshfw (Trelegy Ellipta 200-62.5-25 Mcg/INH) 1 Aer Aer, 1 AER IN DAILY for COPD, AER 12/31/23 Sildenafil Citrate (SILDENAFIL CITRATE) 20 Mg Tab, 20 MG PO TID for PUL. HTN, TAB 12/31/23 Furosemide (Furosemide) 40 Mg Tab, 1 TAB PO DAILY 07/31/22 Carvedilol (Carvedilol) 25 Mg Tab, 1 TAB PO BID 07/31/22 Ferrous Sulfate (Ferosul) 325 Mg Tab, 1 TAB PO BID 07/31/22 Current Medications Current Medications Medications (Trade) Dose Ordered Sig/Kristen Route PRN Reason Start Time Stop Time Status Last Admin Ceftriaxone Sodium 50 ml @ 100 mls/hr DAILY@09 IV 08/12/24 09:00 08/11/24 14:58 DC Azithromycin 250 ml @ 125 mls/hr DAILY IV 08/12/24 10:00 08/12/24 09:57 Furosemide (Lasix Tablet) 40 mg DAILY PO 08/12/24 10:00 08/12/24 09:57 Dopamine HCl/ Dextrose 250 ml @ 13.069 mls/ hr Q19H8M IV 08/12/24 13:45 08/12/24 19:20 DC 08/12/24 12:08 Epinephrine HCl 250 ml @ 7.5 mls/hr Q24H IV 08/12/24 13:45 08/12/24 19:20 DC 08/12/24 12:15 Norepinephrine Bitartrate 250 ml @ 3.75 mls/hr Q24H IV 08/12/24 13:45 08/12/24 11:58 Phenylephrine HCl 250 ml @ 30 mls/hr Q8H20M IV 08/12/24 13:45 08/12/24 19:20 DC Propofol 100 ml @ 2.091 mls/ hr Q24H IV 08/12/24 13:45 Midazolam HCl 50 ml @ 1 mls/hr Q24H IV 08/12/24 13:45 08/12/24 12:30 Fentanyl Citrate 250 ml @ 2.5 mls/hr Q24H IV 08/12/24 13:45 08/12/24 12:00 Hydrocortisone Sodium Succinate (Solu-CORTEF INJECTION) 100 mg Q8HR IV 08/12/24 22:00 08/12/24 21:39 Vasopressin 20 units/Sodium Chloride 100 ml @ 9 mls/hr Q11H7M IV 08/12/24 13:45 08/12/24 12:45 Pantoprazole Sodium (Protonix) 40 mg DAILY IV 08/13/24 10:00 Vital Signs Vital Signs Date Time Temp Pulse Resp B/P (MAP) Pulse Ox O2 Delivery O2 Flow Rate FiO2 08/12/24 21:40 105/52 08/12/24 20:29 84 20 98 40 08/12/24 20:15 97.9 208.2 08/12/24 18:10 Mechanical Ventilator+ 08/12/24 11:22 2 Physical Exam Gen.: Patient lying in bed in medical ICU. Sedated, intubated on mechanical ventilator. Head: Normocephalic, atraumatic. Eyes: PERRLA. Ears: Normal external anatomy. Throat: Endotracheal tube and orogastric tube in place. Neck: Supple, trachea midline. Chest: Transmitted breath sounds bilaterally. Decreased air entry bilaterally. No wheezing. Bibasilar crackles. Cardiovascular: Positive S1, positive S2. Regular rate and rhythm. Abdomen: Positive bowel sounds in all 4 quadrants. Soft, nontender, nondistended. : Martins in place. Normal external genitalia. Rectal: Deferred. Skin: Warm, dry. Intact. Extremities: 2+ radial pulses bilaterally. No lower extremity edema. Neuro: Sedated. Labs/Diagnostic Data Labs Test 08/12/24 21:25 08/12/24 20:20 08/12/24 15:55 08/12/24 15:28 Range/Units Blood Gas Specimen Type Arterial Blood Gas Sample Site Arterial line Blood Gas Patient Temperature 37.0 Arterial Blood Date Drawn [id number] Arterial Blood pH 7.464 H 7.350-7.450 Arterial Blood Partial Pressure CO2 49.1 H 32.0-45.0 mmHg Arterial Blood Partial Pressure O2 65.3 L 83.0-108.0 mmHg Arterial Blood HCO3 34.5 H 21.0-28.0 mmol/L Arterial Blood Oxygen Saturation 91.2 L 94.0-98.0 % Arterial Blood Base Excess 9.3 H -2.0-3.0 mmol/L Arterial Blood Oxyhemoglobin 90.3 L 94.0-98.0 % Arterial Blood Carboxyhemoglobin 0.6 0.5-1.5 % Arterial Blood Methemoglobin 0.4 0.0-1.5 % Harpreet Test N/a Blood Gas Total Hemoglobin 12.30 12.0-16.0 g/dL Blood Gas Set Respiration Rate 20.0 Blood Gas Modality Vent - ac Blood Gas Spontaneous Rate 20 FiO2 % 40.0 Blood Gas Tidal Volume 400.0 Blood Gas Spontaneous Tidal Volume 400 Blood Gas PEEP or CPAP 5.0 Bl Gas Inspiratory/Expiratory Ratio 1:2.4 Specimen Drawn By Rocael damon rt Blood Gas Comments D-Dimer, Quantitative 22.61 H 0.0-0.49 mg/L FEU Blood Gas Inspiratory Pressure 33.0 Test 08/12/24 12:20 08/12/24 06:21 08/11/24 11:40 08/11/24 08:33 Range/Units Blood Gas Liter Flow 15.00 Blood Gas Critical Value Read Back Yes Blood Gas Notified Whom Blood Gas Notified Time [id number] Blood Gas Notified By Bdownard marine water tender White Blood Count 7.2 4.4-10.8 10^3/uL Red Blood Count 4.25 4.0-5.20 10^6/uL Hemoglobin 11.9 L 12.2-16.2 g/dL Hematocrit 36.5 # 36.0-46.0 % Mean Corpuscular Volume 85.7 80.0-100.0 fL Mean Corpuscular Hemoglobin 27.9 L 28.0-32.0 pg Mean Corpuscular Hemoglobin Concent 32.6 32.0-36.0 g/dL Red Cell Distribution Width 14.7 H 11.8-14.3 % Platelet Count 302 140-450 10^3/uL Mean Platelet Volume 8.6 6.9-10.8 fL Neutrophils (%) (Auto) 78.5 37.0-80.0 % Lymphocytes (%) (Auto) 12.7 10.0-50.0 % Monocytes (%) (Auto) 8.4 0.0-12.0 % Eosinophils (%) (Auto) 0.0 0.0-7.0 % Basophils (%) (Auto) 0.4 0.0-2.0 % Neutrophils # (Auto) 5.7 1.6-8.6 10 ^3/uL Lymphocytes # (Auto) 0.9 0.4-5.4 10 ^3/uL Monocytes # (Auto) 0.6 0-1.3 10 ^3/uL Eosinophils # (Auto) 0 0-0.8 10 ^3/uL Basophils # (Auto) 0 0-0.2 10 ^3/uL Nucleated Red Blood Cells 0.0 % Sodium Level 142 # 136-145 mmol/L Potassium Level 4.0 3.5-5.1 mmol/L Chloride Level 100 98-107 mmol/L Carbon Dioxide Level 34 H 20-31 mmol/L Anion Gap 8 5-15 Blood Urea Nitrogen 18 9-23 mg/dL Creatinine 0.87 0.550-1.02 mg/dL Glomerular Filtration Rate Calc 71 >90 mL/min BUN/Creatinine Ratio 20.7 H 10.0-20.0 Serum Glucose 129 H 74-106 mg/dL Calcium Level 9.6 8.7-10.4 mg/dL Total Bilirubin 0.5 0.2-1.0 mg/dL Aspartate Amino Transferase (AST) 20 13-40 U/L Alanine Aminotransferase (ALT) 17 7-40 U/L Alkaline Phosphatase 119 H 46-116 U/L Total Protein 6.9 5.7-8.2 g/dL Albumin 4.2 3.2-4.8 g/dL Troponin I High Sensitivity 23 </=34 ng/L B-Type Natriuretic Peptide 273.61 0-100 pg/mL Assessment Impression: Acute hypoxic respiratory failure Acute hypercarbic respiratory failure On mechanical ventilator Acute metabolic encephalopathy Shock, septic vs cardiogenic Bilateral pneumonia Obesity BMI 36.1 Mucous plugging Atelectasis Pulmonary hypertension, RVSP 51 mmHg (03/2024) COPD, Moderate obstructive ventilatory defect Reduced DLCO Plan: s/p cardiac arrest. s/p intubation on mechanical ventilator. Patient was switched from PC mode to AC mode in the evening. Initially required PC mode due to difficulty with ventilation/oxygenation. ABG was alkalemic Changed RR to 20, VT 450, PEEP 5, FiO2 50% Titrate FIO2 to keep O2 saturation above 90%. VAP bundle. Daily ABG and CXR while intubated Sedate for ventilator synchrony S/p therapeutic bronchoscopy today, removed mucous plugging from L6-L10 and R1- R3. S/p central line and arterial line placement See separate procedure notes for details of procedures. On pressors for hemodynamic support Levophed 8 mcg/min, vasopressin 0.03 units/min Titrate to keep mean arterial pressure greater than 65 mmHg Off dopamine and epinephrine. CXR image and report reviewed. Devices in place. Multifocal airspace disease. No pneumothorax. No pleural effusion. ABG reviewed. Continue antibiotics. IV steroids Monitor renal function Monitor electrolytes. Supplement as necessary. Monitor ins and outs. GI prophylaxis. DVT prophylaxis. Prognosis: Poor given patient's multiple co-morbidities. Condition: Critical Rest of plan per hospitalist and other consultants. A total of 35 minutes of critical care time was spent reviewing the patient record, examining the patient, making a diagnostic and therapeutic plan, discussing this plan with the medical personnel, following up on diagnostic studies and following the patient for clinical stability excluding any and all procedures. At least 50% of this time was spent in direct, [id number] contact. Thank you, Dr. Strickland, for allowing me to participate in this patient's care. Further recommendations will depend on the patient's clinical course. Please do not hesitate to contact me if you have any questions or concerns. This medical document was created using an electronic medical record system with [employer] Experience dictation system. Although these documentations are being carefully reviewed, there may still be some phonetic and typographical changes. The errors are purely typographical, due to imperfection on the software program, and do not reflect any compromise in the patient's medical care. Plan discussed with: Other (RN/Dr. Strickland) EDITH ANSARI MD Aug 12, 2024 22:13
--- NOTE | 2024-08-12 23:48 | DVH ---
CT HEAD WITHOUT CONTRAST INDICATION: s/p CPR EXAM DATE: 08/12/2024 11:10 PM COMPARISON: None RADIATION DOSE: CTDIvol: 55.97 mGy, DLP: 1650.47 mGy*cm PROCEDURE: CT scans of the head were obtained from the vertex to the skull base. Sagittal and coronal reconstructions were provided. All CT scans at this medical facility are performed using dose modulation techniques as appropriate t o a performed exam including the following: Automated exposure control was utilized; adjustment of th e MA and/or KV according to patient size; and use of iterative reconstruction technique. FINDINGS: Dense calcifications in the vertebral arteries. There is a minimal cortical atrophy with no signs of stroke or hemorrhage. Patient has nasogastric tube in place. There is soft tissue in the right enlisted aircrew/aerial observer/gunner al auditory canal clinical correlation is advised. ML are unremarkable internal auditory canals unrem arkable. Mastoid air cells are well aerated. Paranasal sinuses unremarkable orbits are normal. Calvarium is intact. There are no midline shifts or focal mass effect hippocampal structures are symmetric and midline str uctures are unremarkable given the level of atrophy. IMPRESSION: 1. Very mild cortical atrophy otherwise unremarkable study .
[2024-08-12 23:57] LABS: Basophils # (auto) 0 10 ^3/uL (0-0.2); Basophils % (auto) 0.3 % (0.0-2.0); Eosinophils # (auto) 0 10 ^3/uL (0-0.8); Hematocrit 32.9 % (36.0-46.0); Hemoglobin 10.8 g/dL (12.2-16.2); Lymphocytes # (auto) 0.9 10 ^3/uL (0.4-5.4); Lymphocytes % (auto) 6.3 % (10.0-50.0); Mean Corpuscular Hemoglobin 28.1 pg (28.0-32.0); Mean Corpuscular Hgb Conc. 32.9 g/dL (32.0-36.0); Mean Corpuscular Volume 85.4 fL (80.0-100.0); Monocytes # (auto) 1.4 10 ^3/uL (0-1.3); Monocytes % (auto) 9.8 % (0.0-12.0); Neutrophils # (auto) 11.8 10 ^3/uL (1.6-8.6); Neutrophils % (auto) 83.6 % (37.0-80.0); Nucleated Red Blood Cells % 0.1 %; Platelet Count (auto) 264 10^3/uL (140-450); Red Blood Cells 3.85 10^6/uL (4.0-5.20); Red Cell Distribution Width 14.7 % (11.8-14.3); White Blood Cell 14.1 10^3/uL (4.4-10.8)
[2024-08-13] VITALS (107 sets, daily range): BP systolic 86–154; BP diastolic 37–81; PULSE 60–84; RESP 16–18; TEMP 95.7–98.2; O2SAT 90–100
--- NOTE | 2024-08-13 00:05 | DVH ---
INDICATION: rule out PE COMPARISON: CT CT ANGIO CHEST CONTRAST on DOS: 07/04/24, CT CT ANGIO CHEST CONTRAST on DOS: 06/11/23 TECHNIQUE: Multidetector CTA of the chest was performed of the chest with 100 cc of intravenous contr ast. PULMONARY ANGIOGRAPHY PROTOCOL was utilized using a bolus-tracking technique centered on the ginger n pulmonary artery. Axial, coronal and sagittal multiplanar and MIP reformats were performed. Radiation Dose : 1. Chest: CTDI volume is 55.97 mGy. Dose-length product is 1650.47 mGy*cm The dose indicators for CT are the volume Computed Tomography (CT) Dose Index (CTDIvol) and the Dose Length Product (DLP), and are measured in units of mGy and mGy-cm, respectively. These indicators are not patient dose, but values generated from the CT scanner acquisition factors. The report includes radiation exposure data for exposures received during this examination. Study was done after administration 100 cc of omnipaque 350 none wasted Findings:. Patient has a endotracheal tube in the trachea pulmonary arteries are grossly enlarged the main pulmo nary artery measures 5.3 cm in caliber, right pulmonary artery measures 3.13 cm in caliber in the lef t pulmonary artery measures 2.67 cm in caliber. Heart is enlarged. There is a posterior consolidated right lower lobe evidence for bilateral interstitial infiltrates and possibly edema. No evidence for pulmonary embolus the ascending aorta measures 3.77 cm. Also bilateral small consolidates in the post erior right and left lower lobes. IMPRESSION: Grossly enlarged pulmonary arteries underlying pulmonary arterial hypertension is suspect ed no pulmonary embolusThere are bilateral infiltrates in the lung bases
[2024-08-13 00:13] LABS: INR 1.17 (0.9-1.15); Partial Thromboplastin Time 24.7 SEC (24.5-34.5); Prothrombin Time 12.2 sec (9.3-11.8)
[2024-08-13] MEDS: PIPERACILLIN-TAZOB 3.375GM 100 ML IV SCH (00:15)
[2024-08-13] MEDS ORDERED: HEPARIN DRIP/D5W 100UNITS/ML 250 ML IV SCH (00:30)
[2024-08-13] MEDS ORDERED: HEPARIN SODIUM (PORCINE) 5000 UNITS/ML 1ML VIAL IV ONE (00:30)
--- NOTE | 2024-08-13 01:01 | DVH ---
Bilateral lower extremity venous duplex Clinical History: elevated d-dimer r/o dvt Comparison: None Technique: Duplex Doppler evaluation of the deep venous systems of both lower extremities from the common femora l veins to the popliteal veins including color Doppler and spectral/pulsed waveform analysis was perf ormed. Findings: RIGHT SIDE: The common femoral vein demonstrates appropriate compressibility and waveform variability. There is compressibility/patency of the great saphenous vein at the proximal thigh. The femoral vein demonstrates appropriate compressibility and waveform variability. The deep femoral vein demonstrates appropriate compressibility and waveform variability. The popliteal vein demonstrates appropriate compressibility and waveform variability. There is normal compressibility at the tibioperoneal trunk. LEFT SIDE: The common femoral vein demonstrates appropriate compressibility and waveform variability. There is compressibility/patency of the great saphenous vein at the proximal thigh. The femoral vein demonstrates appropriate compressibility and waveform variability. The deep femoral vein demonstrates appropriate compressibility and waveform variability. The popliteal vein demonstrates appropriate compressibility and waveform variability. There is normal compressibility at the tibioperoneal trunk. Impression: No evidence of right or left femoropopliteal venous thrombosis.
[2024-08-13 05:10] LABS: Basophils # (auto) 0 10 ^3/uL (0-0.2); Eosinophils # (auto) 0 10 ^3/uL (0-0.8); Lymphocytes # (auto) 0.9 10 ^3/uL (0.4-5.4); Mean Corpuscular Volume 86.4 fL (80.0-100.0)
[2024-08-13 05:13] LABS: Basophils % (auto) 0.2 % (0.0-2.0); Hematocrit 34.8 % (36.0-46.0); Lymphocytes % (auto) 7.7 % (10.0-50.0); Mean Corpuscular Hemoglobin 27.2 pg (28.0-32.0); Mean Corpuscular Hgb Conc. 31.5 g/dL (32.0-36.0); Monocytes % (auto) 8.4 % (0.0-12.0); Neutrophils # (auto) 9.5 10 ^3/uL (1.6-8.6); Neutrophils % (auto) 83.7 % (37.0-80.0); Platelet Count (auto) 252 10^3/uL (140-450); Red Blood Cells 4.02 10^6/uL (4.0-5.20); Red Cell Distribution Width 14.8 % (11.8-14.3); White Blood Cell 11.4 10^3/uL (4.4-10.8)
--- NOTE | 2024-08-13 05:15 | DVH ---
EXAM: XR Chest, 1 View CLINICAL INDICATION: INTUBATED TECHNIQUE: Frontal view of the chest. COMPARISON: XY CHEST XRAY 1 VIEW on DOS: 08/12/24, XY CHEST PORTABLE on DOS: 08/11/24, XY CHEST TIM BLE on DOS: 07/03/24, XY CHEST XRAY 1 VIEW on DOS: 04/11/24, XY CHEST PORTABLE on DOS: 06/16/23 FINDINGS: LUNGS AND PLEURAL SPACES: Mild pulmonary congestion. No consolidation. No pneumothorax. HEART: Unremarkable. No cardiomegaly. MEDIASTINUM: Unremarkable. Normal mediastinal contour. BONES/JOINTS: Unremarkable. No acute fracture. TUBES, LINES AND DEVICES: ET tube is 2.9 cm from the olman. Enteric tube tip cannot be seen but i s below the diaphragm. OTHER FINDINGS: . . IMPRESSION: 1. ET tube is 2.9 cm from the olman. 2. Mild pulmonary congestion.
[2024-08-13 05:24] LABS: Albumin 3.5 g/dL (3.2-4.8); Alkaline Phosphatase 109 U/L (46-116); Anion Gap 9 (5-15); BUN/Creatinine Ratio 25.4 (10.0-20.0); Chloride 102 mmol/L (98-107); Potassium 3.7 mmol/L (3.5-5.1); Total Protein 5.9 g/dL (5.7-8.2)
[2024-08-13 05:25] LABS: Bilirubin, Total 0.6 mg/dL (0.2-1.0)
[2024-08-13 05:47] LABS: Alanine Aminotransferase 91 U/L (7-40); Aspartate Aminotransferase 88 U/L (13-40); Blood Urea Nitrogen 31 mg/dL (9-23); Calcium 8.7 mg/dL (8.7-10.4); Carbon Dioxide 36 mmol/L (20-31); Glucose 157 mg/dL (74-106); Sodium 147 mmol/L (136-145)
[2024-08-13 07:29] LABS: Base Excess 8.9 mmol/L (-2.0-3.0)
--- NOTE | 2024-08-13 08:53 | DVHPN2 ---
Progress Note - Dictate Date Seen: Aug 13, 2024 Medical Necessity Reason Pt with a Central, PICC or Fol: Yes The following are medically ne: Martins Catheter Subjective Ms. Recinos is a 73 years old female with a history of hypertension, dyslipidemia, coronary artery disease, heart attack, congestive heart failure, asthma, COPD on home oxygen, gout, anemia, the patient was admitted found her senior living on 08/11/2024 with a chief company of shortness of breath I have seen and examined the patient, I have talked to her nurse and son. She is intubated, sedated, nonresponsive painful stimuli, pupils are reactive, she was gag reflexes ABG, 08/12/2024: Respiratory acidosis, hypoxia WBC/HB/PLT/MCV, 08/12/2024: 7.2/11.9/302/85.7 CMP, 08/12/2024: Unremarkable HGB A1c, 04/11/2024: 500 TG/HDL/LDL/HDL, 05/2023: 101/6/186/45 Vitamin B12, 03/2024: 1161 TSH, 03/2024: 1.39 Extremity venous study, 08/13/2024: No evidence of right or left femoropopliteal venous thrombosis. Chest x-ray, 08/12/2024: Left central venous catheter overlies the left upper chest and may be not position. Clinical correlation advised. Endotracheal tube in satisfactory position. Left central venous catheter in uncertain position CT head, 08/12/2024: Very mild cortical atrophy otherwise unremarkable study CTA chest, 08/13/2024: Grossly enlarged pulmonary arteries underlying pulmonary arterial hypertension is suspected no pulmonary embolus There are bilateral infiltrates in the lung bases vital signs Vital Sign Date Time Temp Pulse Resp B/P (MAP) Pulse Ox O2 Delivery O2 Flow Rate FiO2 08/13/24 07:32 76 18 128/56 (80) 95 40 08/13/24 06:45 96.8 206.2 08/13/24 06:00 Mechanical Ventilator+ 08/12/24 11:22 2 Total Intake and Output 08/12/24 08/12/24 08/13/24 15:00 23:00 07:00 Intake Total 659.275 ml 322.00 ml 279.5 ml Output Total 250 ml Balance 659.275 ml 322.00 ml 29.5 ml medications Current Medications Medications Dose Ordered Sig/Kristen Route Start Time Stop Time Status Last Admin Dose Admin Sodium Chloride 10 ml Q8HR IV 08/11/24 14:00 08/13/24 05:27 10 ML Acetaminophen/ Hydrocodone Bitart 1 tab Q4HP PRN PO 08/11/24 13:00 Ondansetron HCl 4 mg Q4HP PRN IV 08/11/24 13:00 Docusate Sodium 100 mg BIDPRN PRN PO 08/11/24 13:00 Acetaminophen 650 mg Q6HP PRN PO 08/11/24 13:00 Azithromycin 250 ml @ 125 mls/hr DAILY IV 08/12/24 10:00 08/12/24 09:57 125 MLS/HR Albuterol 2.5 mg Q6HWA NEB 08/11/24 18:00 08/13/24 06:18 2.5 MG Ipratropium [place] 0.5 mg Q6HWA NEB 08/11/24 18:00 08/13/24 06:18 0.5 MG Hydralazine HCl 10 mg Q6HP PRN IV 08/11/24 13:00 Furosemide 40 mg DAILY PO 08/12/24 10:00 08/12/24 09:57 40 MG Latanoprost 1 drop QPM EACHEYE 08/11/24 18:00 08/11/24 18:00 1 DROP Sildenafil Citrate 20 mg TID PO 08/11/24 14:00 08/13/24 05:26 20 MG Carvedilol 25 mg BID PO 08/11/24 22:00 08/12/24 09:56 25 MG Patient Own Medication 1 drop BID EACHEYE 08/11/24 22:00 Ferrous Sulfate 325 mg BID PO 08/11/24 22:00 08/12/24 21:39 325 MG Albuterol 2.5 mg Q2HPRN PRN NEB 08/11/24 20:45 Ipratropium [place] 0.5 mg Q2HPRN PRN NEB 08/11/24 20:45 Norepinephrine Bitartrate 250 ml @ 3.75 mls/hr Q24H IV 08/12/24 13:45 08/12/24 11:58 3.75 MLS/HR Propofol 100 ml @ 2.091 mls/ hr Q24H IV 08/12/24 13:45 Midazolam HCl 50 ml @ 1 mls/hr Q24H IV 08/12/24 13:45 08/13/24 04:20 5 MLS/HR Fentanyl Citrate 250 ml @ 2.5 mls/hr Q24H IV 08/12/24 13:45 08/12/24 12:00 10 MLS/HR Hydrocortisone Sodium Succinate 100 mg Q8HR IV 08/12/24 22:00 08/13/24 05:26 100 MG Vasopressin 20 units/Sodium Chloride 100 ml @ 9 mls/hr Q11H7M IV 08/12/24 13:45 08/13/24 02:04 9 MLS/HR Pantoprazole Sodium 40 mg DAILY IV 08/13/24 10:00 Piperacillin Sod/ Tazobactam Sod 100 ml @ 25 mls/hr Q8HR IV 08/12/24 23:30 08/13/24 05:26 25 MLS/HR Enoxaparin Sodium 40 mg DAILY SC 08/13/24 10:00 objective The patient is well-nourished and well-developed with no distress. The patient is intubated MENTAL STATUS: Subjective, CRANIAL NERVES: Pupils are equal, round and reactive.There are corneal reflexes and doll's eyes phenomenon. No signs of facial weakness. There are weak gagging or coughing reflexes SENSATION: No responses to pain stimuli. MOTOR: Normal tone in the upper and lower extremity. Normal muscle bulk. No fasciculations. No spontaneous movement. REFLEXES: Deep tendon reflexes are symmetrical. No pathological reflexes. CEREBELLAR/COORDINATION: Deferred GAIT/STATION: deferred. laboratory and microbiology Laboratory Tests 08/13/24 04:34 Test 08/13/24 04:34 Range/Units Serum Glucose 157 H 74-106 mg/dL Problem List Coma Hypoxic encephalopathy Metabolic encephalopathy Toxic encephalopathy Cardiopulmonary arrest Respiratory failure Hypoxia Status post CPR Acidosis Seizure-like activity to rule out seizure attack Assessment/Plan Monitoring Supportive treatment ICU care Follow-up labs Follow-up CT head (we have ordered) EEG Respiratory support/vent management Stabilize vitals/pressor drip Oxygen DVT prophylaxis GI prophylaxis More recommendation per clinical course This medical document was created using an electronic medical record system with [employer] system. Although this document has been carefully reviewed, there may still be some phonetic and typographical errors. These areas are purely typographical due to imperfections of the software programs, and do not reflect any compromise in the patient's medical care. Prognosis guarded Dietary Evaluation Review Interpretation of weight loss: up to 20% in 1 year Plan discussed with: Son, Other Critical Care Time(min): 35 PATRIZIA SHERWOOD MD Aug 13, 2024 08:53
[2024-08-13] MEDS: PANTOPRAZOLE 40 MG/10 ML VIAL INJ IV SCH (09:33)
[2024-08-13] MEDS: ENOXAPARIN SOD 40 MG/0.4 ML SYRINGE SC SCH (09:34)
--- NOTE | 2024-08-13 10:14 | DVHPN2 ---
Consult Progress Note Date Seen: Aug 13, 2024 Subjective Other Systems: No ovrnight cardiac events reported Objective vital signs Vital Sign Date Time Temp Pulse Resp B/P (MAP) Pulse Ox O2 Delivery O2 Flow Rate FiO2 08/13/24 09:36 83 98/48 08/13/24 09:34 18 95 40 08/13/24 06:45 96.8 206.2 08/13/24 06:00 Mechanical Ventilator+ 08/12/24 11:22 2 Total Intake and Output 08/12/24 08/12/24 08/13/24 15:00 23:00 07:00 Intake Total 659.275 ml 322.00 ml 279.5 ml Output Total 250 ml Balance 659.275 ml 322.00 ml 29.5 ml medications Current Medications Medications Dose Ordered Sig/Kristen Route Start Time Stop Time Status Last Admin Dose Admin Sodium Chloride 10 ml Q8HR IV 08/11/24 14:00 08/13/24 05:27 10 ML Acetaminophen/ Hydrocodone Bitart 1 tab Q4HP PRN PO 08/11/24 13:00 Ondansetron HCl 4 mg Q4HP PRN IV 08/11/24 13:00 Docusate Sodium 100 mg BIDPRN PRN PO 08/11/24 13:00 Acetaminophen 650 mg Q6HP PRN PO 08/11/24 13:00 Azithromycin 250 ml @ 125 mls/hr DAILY IV 08/12/24 10:00 08/13/24 09:37 125 MLS/HR Albuterol 2.5 mg Q6HWA NEB 08/11/24 18:00 08/13/24 06:18 2.5 MG Ipratropium [place] 0.5 mg Q6HWA NEB 08/11/24 18:00 08/13/24 06:18 0.5 MG Hydralazine HCl 10 mg Q6HP PRN IV 08/11/24 13:00 Furosemide 40 mg DAILY PO 08/12/24 10:00 08/13/24 09:36 40 MG Latanoprost 1 drop QPM EACHEYE 08/11/24 18:00 08/11/24 18:00 1 DROP Sildenafil Citrate 20 mg TID PO 08/11/24 14:00 08/13/24 05:26 20 MG Carvedilol 25 mg BID PO 08/11/24 22:00 08/12/24 09:56 25 MG Patient Own Medication 1 drop BID EACHEYE 08/11/24 22:00 Ferrous Sulfate 325 mg BID PO 08/11/24 22:00 08/13/24 09:36 325 MG Albuterol 2.5 mg Q2HPRN PRN NEB 08/11/24 20:45 Ipratropium [place] 0.5 mg Q2HPRN PRN NEB 08/11/24 20:45 Norepinephrine Bitartrate 250 ml @ 3.75 mls/hr Q24H IV 08/12/24 13:45 08/12/24 11:58 3.75 MLS/HR Propofol 100 ml @ 2.091 mls/ hr Q24H IV 08/12/24 13:45 Midazolam HCl 50 ml @ 1 mls/hr Q24H IV 08/12/24 13:45 08/13/24 04:20 5 MLS/HR Fentanyl Citrate 250 ml @ 2.5 mls/hr Q24H IV 08/12/24 13:45 08/13/24 09:37 12.5 MLS/HR Hydrocortisone Sodium Succinate 100 mg Q8HR IV 08/12/24 22:00 08/13/24 05:26 100 MG Vasopressin 20 units/Sodium Chloride 100 ml @ 9 mls/hr Q11H7M IV 08/12/24 13:45 08/13/24 02:04 9 MLS/HR Pantoprazole Sodium 40 mg DAILY IV 08/13/24 10:00 08/13/24 09:33 40 MG Piperacillin Sod/ Tazobactam Sod 100 ml @ 25 mls/hr Q8HR IV 08/12/24 23:30 08/13/24 05:26 25 MLS/HR Enoxaparin Sodium 40 mg DAILY SC 08/13/24 10:00 08/13/24 09:34 40 MG Examination: GENERAL:Abnormal, LUNGS:Abnormal (Endotracheally intubated with 40% FiO2), CVS:Abnormal (Sinus rhythm with ectopi. On low-dose levophed drip), NEURO:Abnormal (Chemically sedated) laboratory and microbiology Laboratory Tests 08/13/24 04:34 Test 08/13/24 04:34 Range/Units Serum Glucose 157 H 74-106 mg/dL Problem List/Assessment/Plan Problem List/Assessment/Plan Septic shock with bilateral pneumonia Cardiopulmonary arrest with ROSC, likely 2/2 above Acute on chronic hypoxic respiratory failure Pulmonary hypertension Type III, moderate degree, on Sildenafil Acute on chronic decompensated HFpEF COPD exacerbation Plan/Recommendation (Dr. Brink) A transthoracic echocardiogram from 04/12/2024 revealed an LVEF of 50% with moderate LVH, RV and left atrium enlargement. A recent right and left cardiac catheterization on 12/2023 revealed no significant coronary artery disease, elevated left ventricular end-diastolic pressures indicating diastolic heart failure, and pulmonary hypertension deemed to be multifactorial primarily secondary to diastolic heart failure in addition to chronic lung processes for which she was initiated on Sildenafil therapy on 04/2024. A twelve lead electrocardiogram and patient monitor reviewed with findings of a sinus rhythm with ectopi and no evidence of A-flutter/A-fib rhythms. We will obtain a repeat transthoracic echocardiogram given cardiopulmonary arrest. In the meantime, titrate down vasopressor as tolerated. ABX therapy per primary care team. Continue pulmonology recommendations. DVT/VTE prophylaxis. Follows up in the outpatient setting with Dr. Brink with upcoming appointment on 08/28/2024 at 1500. Rest of plan per clinical course. Thank you for allowing us to participate in this patient's care. Please call if you have any questions or concerns. Critical care time: 30 min. This medical document was created using an electronic medical record system with voice recognition software and computerized dictation system. Although this document has been carefully reviewed, there might still be some phonetic and typographical errors. Occasional wrong-word or ``sound-alike substitutions may have occurred due to the inherent limitations of voice recognition software. These areas are purely typographical due to imperfections of the software programs and do not reflect any compromise in the patient's medical care. Please read the chart carefully and recognize, using context, where these substitutions have occurred. Plan discussed with: Other (Brother) Date of Service: Aug 13, 2024 Billing Provider: GREGORY MENCHACA Cardiology Common Codes: 26685-[id number] CARE 30-74 MIN GREGORY MENCHACA Aug 13, 2024 10:14
[2024-08-13] MEDS: NOREPINEPHRINE 8 MG/250ML KIT 250 ML IV SCH (14:00)
[2024-08-13] MEDS ORDERED: VANCOMYCIN PER PHARMACY 0 MG IV SCH (15:30)
--- NOTE | 2024-08-13 15:38 | DVHPN2 ---
Progress Note Date Seen: Aug 13, 2024 Medical Necessity Reason Pt with a Central, PICC or Fol: Yes The following are medically ne: Central Line, Vigil Catheter Reason for vigil catheter: Strict I&O Subjective Patient reports: No new complaints Review of Systems: HEENT:Normal, CVS:Normal, RESPIRATORY:Normal, GI:Normal, :Normal, MSK:Normal, NEURO:Normal Objective vital signs Vital Sign Date Time Temp Pulse Resp B/P (MAP) Pulse Ox O2 Delivery O2 Flow Rate FiO2 08/13/24 15:00 98.2 79 18 107/50 (69) 94 208.8 110/53 (72) 08/13/24 14:00 Mechanical Ventilator+ 35 35 08/12/24 11:22 2 Total Intake and Output 08/12/24 08/12/24 08/13/24 15:00 23:00 07:00 Intake Total 659.275 ml 322.00 ml 297.0 ml Output Total 250 ml Balance 659.275 ml 322.00 ml 47.0 ml medications Current Medications Medications Dose Ordered Sig/Kristen Route Start Time Stop Time Status Last Admin Dose Admin Sodium Chloride 10 ml Q8HR IV 08/11/24 14:00 08/13/24 14:15 10 ML Ondansetron HCl 4 mg Q4HP PRN IV 08/11/24 13:00 Docusate Sodium 100 mg BIDPRN PRN PO 08/11/24 13:00 Acetaminophen 650 mg Q6HP PRN PO 08/11/24 13:00 Albuterol 2.5 mg Q6HWA NEB 08/11/24 18:00 08/13/24 11:33 2.5 MG Ipratropium [place] 0.5 mg Q6HWA NEB 08/11/24 18:00 08/13/24 11:34 0.5 MG Latanoprost 1 drop QPM EACHEYE 08/11/24 18:00 08/11/24 18:00 1 DROP Patient Own Medication 1 drop BID EACHEYE 08/11/24 22:00 08/13/24 14:16 1 DROP Albuterol 2.5 mg Q2HPRN PRN NEB 08/11/24 20:45 Ipratropium [place] 0.5 mg Q2HPRN PRN NEB 08/11/24 20:45 Propofol 100 ml @ 2.091 mls/ hr Q24H IV 08/12/24 13:45 Midazolam HCl 50 ml @ 1 mls/hr Q24H IV 08/12/24 13:45 08/13/24 14:15 5 MLS/HR Fentanyl Citrate 250 ml @ 2.5 mls/hr Q24H IV 08/12/24 13:45 08/13/24 09:37 12.5 MLS/HR Pantoprazole Sodium 40 mg DAILY IV 08/13/24 10:00 08/13/24 09:33 40 MG Piperacillin Sod/ Tazobactam Sod 100 ml @ 25 mls/hr Q8HR IV 08/12/24 23:30 08/13/24 14:15 25 MLS/HR Enoxaparin Sodium 40 mg DAILY SC 08/13/24 10:00 08/13/24 09:34 40 MG Norepinephrine Bitartrate 250 ml @ 1.875 mls/ hr Q24H IV 08/13/24 14:00 UNV Vancomycin HCl 0 ml @ 0 mls/hr UD IV 08/13/24 15:30 UNV Methylprednisolone Sodium Succinate 40 mg Q8HR IV 08/13/24 22:00 UNV Enteral Nutritional Formula 1,000 ml 30ML/HR GT 08/13/24 15:30 UNV Examination: GENERAL:Normal, HEENT:Normal, NECK:Normal, LUNGS:Normal, LUNGS:Abnormal (intubated, sedated), CVS:Normal, ABDOMEN:Normal, MSK:Normal, SKIN:Normal, NEURO:Normal, :Normal laboratory and microbiology Laboratory Tests 08/13/24 04:34 Test 08/13/24 04:34 Range/Units Serum Glucose 157 H 74-106 mg/dL Microbiology Date/Time Source Procedure Growth Status 08/13/24 02:49 Sputum Gram Stain - Final Resulted 08/13/24 02:49 Sputum Respiratory Culture Pending Resulted Problem List/Assessment/Plan Problem List/Assessment/Plan #1 acute resp failure: cont acv #2 s/p cpr #3 copd with exacerbation: cont iv steroids #4 shock ?septic: iv antibiotics, iv pressors #5 pulmonary htn #6 acute diastolic heart failure #7 acute renal failure ?vasomotor nephropathy #8 transaminitis #9 obesity #10 RA #11 gout long dw son Linus regards plan of care at bedside Plan discussed with: Son My Orders My Orders Orders - ROSHAN HERNANDEZ MD Procedure Category Date Status Time Norepinephrine 8 PHA 08/13/24 Logged Mg/250ml Kit 14:00 Urinalysis LAB 08/13/24 Uncollected 15:27 Vancomycin Per PHA 08/13/24 Logged Pharmacy 15:30 Methylprednisolone PHA 08/13/24 Logged Sod Succ (Solu Medrol 22:00 Nutritional PHA 08/13/24 Logged Supplements (Jevity 15:30 Comprehensive LAB 08/14/24 Verified Metabolic Panel 06:00 Complete Blood Count LAB 08/14/24 Verified 06:00 Chest Portable XY 08/14/24 Logged 06:00 Abg W/ Co-Ox RT 08/14/24 Logged 06:00 Dietary Evaluation Review Interpretation of weight loss: up to 20% in 1 year Critical Care Time (mins): 81 (critical care time including dw family was 81 mins) Date of Service: Aug 13, 2024 Billing Provider: ROSHAN HERNANDEZ MD Common Visit Codes: 89919-[id number] CARE 30-74 MIN, 25307-[id number] CARE-EACH +30MIN ROSHAN HERNANDEZ MD Aug 13, 2024 15:38
[2024-08-13 16:06] LABS: Urine Bacteria None Seen /hpf (None Seen)
[2024-08-13 16:15] LABS: Urine Blood 3+ /uL (Negative); Urine Budding Yeast OCCASIONAL /hpf (None Seen); Urine Clarity Ex.Turbid (Clear); Urine Color Colorless (Yellow); Urine Protein, UAD TRACE (Negative); Urine Specific Gravity 1.024 (1.001-1.035); Urine Squamous Epithelial Cell FEW /hpf (<5); Urine Urobilinogen Normal (Negative); Urine WBC 41 /HPF (0-5); Urine pH 5.5 (5.0-9.0)
[2024-08-13] MEDS: VANCOMYCIN 1GM/200ML PM 250 ML IV ONE (17:00)
[2024-08-13] MEDS: methylPREDNISolone SOD SUCC 40 MG/ML VL IV SCH (22:34)
[2024-08-13 22:47] LABS: Chloride 102 mmol/L (98-107); Potassium 3.6 mmol/L (3.5-5.1)
[2024-08-13 22:48] LABS: Anion Gap 7 (5-15)
[2024-08-13 22:53] LABS: BUN/Creatinine Ratio 21.5 (10.0-20.0)
[2024-08-13 22:54] LABS: Magnesium 2.4 mg/dL (1.6-2.6)
--- NOTE | 2024-08-13 23:00 | DVHEEG2 ---
Neurology EEG Procedural Note Procedural Note EXAM DATE: 08/13/2024 REFERRING DOCTOR: Dr. Sherwood TECHNIQUE: Eighteen channels of EEG, 2 channels of EOG, and 1 channel of EKG were recorded using the International 10/20 system. CLINICAL DATA: The patient was referred for an EEG evaluation for the evidence of seizure disorder. MEDICATIONS: See chart BACKGROUND ACTIVITY: There was significant amount of electrode artifacts in the recording. The record showed diffuse low amplitude mixed delta and theta activity over both hemispheres, that was reactive to external stimuli ACTIVATION: Hyperventilation: Not done Photic Stimulation: Not done Sleep: Unresponsiveness IMPRESSION: This is a remarkably abnormal EEG, this EEG is seen in severe cerebral dysfunction due to metabolic/hypoxic encephalopathy or medication effect, please correlate clinically The EKG channel showed an irregular heart rate of 78/min [place] [address] PATRIZIA SHERWOOD MD Aug 13, 2024 23:00
[2024-08-13 23:03] LABS: Blood Urea Nitrogen 26 mg/dL (9-23); Calcium 8.4 mg/dL (8.7-10.4); Carbon Dioxide 37 mmol/L (20-31); Glucose 117 mg/dL (74-106); Sodium 146 mmol/L (136-145)
[2024-08-14] VITALS (109 sets, daily range): BP systolic 102–182; BP diastolic 43–90; PULSE 54–111; RESP 11–23; TEMP 97.9–99; O2SAT 90–100
[2024-08-14 04:58] LABS: Basophils # (auto) 0 10 ^3/uL (0-0.2); Basophils % (auto) 0.2 % (0.0-2.0); Eosinophils # (auto) 0 10 ^3/uL (0-0.8); Hematocrit 32.9 % (36.0-46.0); Hemoglobin 10.6 g/dL (12.2-16.2); Lymphocytes # (auto) 0.6 10 ^3/uL (0.4-5.4); Lymphocytes % (auto) 6.9 % (10.0-50.0); Mean Corpuscular Hemoglobin 27.5 pg (28.0-32.0); Mean Corpuscular Hgb Conc. 32.2 g/dL (32.0-36.0); Mean Corpuscular Volume 85.4 fL (80.0-100.0); Monocytes # (auto) 0.4 10 ^3/uL (0-1.3); Monocytes % (auto) 4.6 % (0.0-12.0); Neutrophils # (auto) 8.2 10 ^3/uL (1.6-8.6); Neutrophils % (auto) 88.3 % (37.0-80.0); Nucleated Red Blood Cells % 0.2 %; Platelet Count (auto) 229 10^3/uL (140-450); Red Blood Cells 3.85 10^6/uL (4.0-5.20); Red Cell Distribution Width 15.3 % (11.8-14.3); White Blood Cell 9.3 10^3/uL (4.4-10.8)
--- NOTE | 2024-08-14 05:09 | DVH ---
CHEST RADIOGRAPH Indication: RESP FAILURE Technique: Single frontal view of the chest was obtained COMPARISON: XY CHEST PORTABLE on DOS: 08/13/24, XY CHEST XRAY 1 VIEW on DOS: 08/12/24, XY CHEST PORTABL E on DOS: 08/11/24, XY CHEST PORTABLE on DOS: 07/03/24, XY CHEST XRAY 1 VIEW on DOS: 04/11/24 FINDINGS: Lines and Tubes: Endotracheal tube in satisfactory position. Left central venous catheter in satisfac tory position and left-sided SVC. Lungs: Multifocal airspace disease. Pleura: No effusion. No pneumothorax. Cardiomediastinal contours: Unremarkable Bones: Unremarkable IMPRESSION: Lines and tubes in satisfactory position. No significant interval change.
[2024-08-14 05:17] LABS: Albumin 3.5 g/dL (3.2-4.8); Alkaline Phosphatase 92 U/L (46-116); Anion Gap 8 (5-15); BUN/Creatinine Ratio 24.4 (10.0-20.0); Bilirubin, Total 0.5 mg/dL (0.2-1.0); Chloride 103 mmol/L (98-107); Potassium 3.7 mmol/L (3.5-5.1); Total Protein 5.8 g/dL (5.7-8.2)
[2024-08-14 05:21] LABS: Alanine Aminotransferase 69 U/L (7-40); Aspartate Aminotransferase 50 U/L (13-40); Blood Urea Nitrogen 29 mg/dL (9-23); Calcium 8.5 mg/dL (8.7-10.4); Carbon Dioxide 37 mmol/L (20-31); Glucose 133 mg/dL (74-106); Sodium 148 mmol/L (136-145)
[2024-08-14 05:31] LABS: Urine Bacteria FEW /hpf (None Seen); Urine Blood 3+ /uL (Negative); Urine Budding Yeast MANY /hpf (None Seen); Urine Clarity Ex.Turbid (Clear); Urine Color Colorless (Yellow); Urine Hyaline Cast FEW /lpf (0 - 2); Urine Mucus FEW (None Seen); Urine Protein, UAD TRACE (Negative); Urine Specific Gravity 1.016 (1.001-1.035); Urine Squamous Epithelial Cell FEW /hpf (<5); Urine Urobilinogen Normal (Negative); Urine WBC 20 /HPF (0-5); Urine pH 5.5 (5.0-9.0)
[2024-08-14 07:11] LABS: Base Excess 9.2 mmol/L (-2.0-3.0)
--- NOTE | 2024-08-14 08:10 | DVHPN2 ---
Consult Progress Note Date Seen: Aug 14, 2024 Subjective Other Systems: No overnight cardiac events reported Objective vital signs Vital Sign Date Time Temp Pulse Resp B/P (MAP) Pulse Ox O2 Delivery O2 Flow Rate FiO2 08/14/24 07:55 77 18 93 Mechanical Ventilator+ 40 40 08/14/24 07:45 98.1 118/65 (82) 208.6 115/52 (73) 08/12/24 11:22 2 Total Intake and Output 08/13/24 08/13/24 08/14/24 15:00 23:00 07:00 Intake Total 189.875 ml 259.500 ml 195.000 ml Balance 189.875 ml 259.500 ml 195.000 ml medications Current Medications Medications Dose Ordered Sig/Kristen Route Start Time Stop Time Status Last Admin Dose Admin Sodium Chloride 10 ml Q8HR IV 08/11/24 14:00 08/14/24 08:03 10 ML Ondansetron HCl 4 mg Q4HP PRN IV 08/11/24 13:00 Docusate Sodium 100 mg BIDPRN PRN PO 08/11/24 13:00 Acetaminophen 650 mg Q6HP PRN PO 08/11/24 13:00 Albuterol 2.5 mg Q6HWA NEB 08/11/24 18:00 08/14/24 05:51 2.5 MG Ipratropium [place] 0.5 mg Q6HWA NEB 08/11/24 18:00 08/14/24 05:51 0.5 MG Latanoprost 1 drop QPM EACHEYE 08/11/24 18:00 08/13/24 18:00 1 DROP Patient Own Medication 1 drop BID EACHEYE 08/11/24 22:00 08/14/24 08:03 1 DROP Albuterol 2.5 mg Q2HPRN PRN NEB 08/11/24 20:45 Ipratropium [place] 0.5 mg Q2HPRN PRN NEB 08/11/24 20:45 Propofol 100 ml @ 2.091 mls/ hr Q24H IV 08/12/24 13:45 Midazolam HCl 50 ml @ 1 mls/hr Q24H IV 08/12/24 13:45 08/14/24 01:18 4 MLS/HR Fentanyl Citrate 250 ml @ 2.5 mls/hr Q24H IV 08/12/24 13:45 08/14/24 03:34 10 MLS/HR Pantoprazole Sodium 40 mg DAILY IV 08/13/24 10:00 08/14/24 08:02 40 MG Piperacillin Sod/ Tazobactam Sod 100 ml @ 25 mls/hr Q8HR IV 08/12/24 23:30 08/14/24 05:52 25 MLS/HR Enoxaparin Sodium 40 mg DAILY SC 08/13/24 10:00 08/14/24 08:02 40 MG Norepinephrine Bitartrate 250 ml @ 1.875 mls/ hr Q24H IV 08/13/24 14:00 Vancomycin HCl 0 ml @ 0 mls/hr UD IV 08/13/24 15:30 Methylprednisolone Sodium Succinate 40 mg Q8HR IV 08/13/24 22:00 08/14/24 05:52 40 MG Enteral Nutritional Formula 1,000 ml 30ML/HR GT 08/13/24 15:30 Examination: LUNGS:Abnormal (Endotracheally intubated with 40% FiO2), CVS:Normal (Off vasopressors. Sinus rhythm with ectopi), NEURO:Abnormal (Chemically sedated) laboratory and microbiology Laboratory Tests 08/14/24 04:30 Test 08/14/24 04:30 Range/Units Serum Glucose 133 H 74-106 mg/dL Problem List/Assessment/Plan Problem List/Assessment/Plan Septic shock with bilateral pneumonia Cardiopulmonary arrest with ROSC, likely 2/2 above Acute on chronic hypoxic respiratory failure Pulmonary hypertension Type III, moderate degree, on Sildenafil Acute on chronic decompensated HFpEF COPD exacerbation Plan/Recommendation (Dr. Brink) Transthoracic echocardiogram revealed a preserved left ventricular function with concentric LVH and right atrial enlargement. A recent right and left cardiac catheterization on 12/2023 revealed no significant coronary artery disease, elevated left ventricular end-diastolic pressures indicating diastolic heart failure, and pulmonary hypertension deemed to be multifactorial primarily secondary to diastolic heart failure in addition to chronic lung processes for which she was initiated on Sildenafil therapy on 04/2024. A twelve lead electrocardiogram and patient monitor reviewed with findings of a sinus rhythm with ectopi and no evidence of A-flutter/A-fib rhythms. Continue ABX therapy per primary care team. Continue pulmonology recommendations. DVT/VTE prophylaxis. Follows up in the outpatient setting with Dr. Brink with upcoming appointment on 08/28/2024 at 1500. There is no further cardiac work-up indicated at this time. Kindly call if in need to continue following up. Thank you for allowing us to participate in this patient's care. Critical care time: 30 min. This medical document was created using an electronic medical record system with voice recognition software and computerized dictation system. Although this document has been carefully reviewed, there might still be some phonetic and typographical errors. Occasional wrong-word or ``sound-alike substitutions may have occurred due to the inherent limitations of voice recognition software. These areas are purely typographical due to imperfections of the software programs and do not reflect any compromise in the patient's medical care. Please read the chart carefully and recognize, using context, where these substitutions have occurred. Plan discussed with: Other Dietary Evaluation Review Interpretation of weight loss: up to 20% in 1 year Date of Service: Aug 14, 2024 Billing Provider: GREGORY MENCHACA Cardiology Common Codes: [id number]-[id number] CARE 30-74 MIN GREGORY MENCHACA Aug 14, 2024 08:10
--- NOTE | 2024-08-14 08:21 | DVHPNRES ---
Progress Note Date Seen: Aug 14, 2024 Resident Creating Document: CALI WITT Medical Necessity Reason Pt with a Central, PICC or Fol: Yes The following are medically ne: Central Line, Vigil Catheter Reason for vigil catheter: Strict I&O Subjective Review of Systems Patient is 73 years old female with past medical history of asthma, COPD, on home oxygen NCO2 2L/mnt, CAD-MN, CHF, pulmonary hypertension, hypertension, hyperlipidemia, rheumatoid arthritis, gout, anemia came to the hospital with shortness of breaths. Information gathered from reviewing the chart and talking to the family. Having chest pain and shortness of breaths for couple of days before she came into the hospital. Patient was admitted the hospital 1 month before with the abdominal pain, pneumonia. Following discharge patient was sent to [facility] for rehabilitation. Significant initial lab workup-troponin I with a normal limit, BNP elevated 273. CXR-Patchy bibasilar airspace opacities. Cardiomegaly. CT head-08/12/2024 -Very mild cortical atrophy otherwise unremarkable study. CT angio on 08/13/2024- grossly enlarged the main pulmonary artery measures 5.3 cm in caliber, right pulmonary artery measures 3.13 cm in caliber in the left pulmonary artery measures 2.67 cm in caliber. Heart is enlarged. There is a posterior consolidated right lower lobe evidence for bilateral interstitial infiltrates and possibly edema. No evidence for pulmonary embolus the ascending aorta measures 3.77 cm. Also bilateral small consolidates in the posterior right and left lower lobes. Grossly enlarged pulmonary arteries underlying pulmonary arterial hypertension is suspected no pulmonary embolus. There are bilateral infiltrates in the lung bases. One 08/13/2024 Doppler study of the lower extremity negative for DVT. ECHO 2D on 08/14/24 revealed-LVEF 60%, concentric left ventricular hypertrophy with right ventricle and right atrial enlargement. Patient had several visits over the year in this hospital. In July 17, 2024, April 16, 2024, June 16, 2023, February 2023, August 14, 2022, September 2012, August 2012, August 2012 Code assist was called on 08/12/2024-patient was found to have unresponsive, stiffness of the bilateral upper and lower extremity, bradycardia, agonal respiration. Code assist was converted to code blue were severe was initiated by bedside RN. Status post CPR. ROSC 20 minutes Patient was intubated on 08/12/2024. Left internal jugular central line was placed on 08/12/2024 Bronchoscopy was done on 08/12/2024-impression- Left lower lobe atelectasis due to mucous plugging. Mucous plugging from L6-L10 and R1-R3 Echo 2D- 04/12/2024 revealed an LVEF of 50% with moderate LVH, RV and left atrium enlargement. The patient also underwent a recent right and left cardiac catheterization on 12/2023 revealing no significant coronary artery disease, elevated left ventricular end-diastolic pressures indicating diastolic heart failure, and pulmonary hypertension deemed to be multifactorial primarily secondary to diastolic heart failure in addition to chronic lung processes for which she was initiated on Sildenafil therapy on 04/2024. Patient had nuclear stress test in -03/19/2023 negative for ischemia, LVEF 59% PMH-heart failure, COPD, asthma, pulmonary hypertension, CAD, MN, hypertension, hyperlipidemia, diabetes mellitus type 2, COPD, asthma, gout, rheumatoid arthritis, anemia PSH- tubal ligation, right foot surgery, tonsillectomy, bilateral total knee replacement, right eye surgery, Allergy- , levofloxacin, ceftriaxone Personal History/ Social History- No history of smoking, alcohol and other drug abuse Patient on ventilator, details of the other system could not be reviewed Patient was seen today for clinical evaluation. Labs and chart reviewed. Overnight patient's BP ranging from 112-146/49-66, -pulse 56 -84, temperature 98.2-99.0, Lab workup ABG on 11/14/2024 pH 7.45, pCO2 49.9, PO2 68.4, bicarbonate 34.4. WBC 7.1> 7.2> 14.1> 11.4> 9.3 Hemoglobin 13.1> 11.9> 10.8> 11.0> 10.6 platelet 276>> 302 264> 252> 229 Sodium 137> 142> 147> 146> 148 Potassium> 3.9> 4.0> 3.7> 3.6> 3.7 Serum creatinine 0.92> 0.87> 1.22> 1.21> 1.19 Serum> bilirubin 0.5> 0.6>0.5 AST> 20 88> 50 ALT 17> 91> 69 Blood culture preliminary no growth so far Respiratory Culture preliminary no growth Drips- fentanyl, propofol, status post Levophed Patient on antibiotic Zosyn and vancomycin Patient with pulmonary hypertension, restarted sildenafil, Patient was seen by neurologist Dr. Mayorga, recommendation reviewed and appreciated, MRI of the brain in place as per recommendation of Dr. Mayorga MRI of the brain- No acute intracranial pathology Dr. Hernandez reduced methylprednisolone from 40 mg Q8H to 40 mg q.12 hours, order for wound consult in place Provider spoke to patient's daughter Ms. Nieves Levy,-[phone], discussed patient's current medical condition, plan of care, answered her questions Objective vital signs Vital Sign Date Time Temp Pulse Resp B/P (MAP) Pulse Ox O2 Delivery O2 Flow Rate FiO2 08/14/24 07:55 77 18 93 Mechanical Ventilator+ 40 40 08/14/24 07:36 106/51 (69) 08/14/24 06:45 97.9 208.2 08/12/24 11:22 2 Total Intake and Output 08/13/24 08/13/24 08/14/24 15:00 23:00 07:00 Intake Total 189.875 ml 259.500 ml 195.000 ml Balance 189.875 ml 259.500 ml 195.000 ml medications Current Medications Medications Dose Ordered Sig/Kristen Route Start Time Stop Time Status Last Admin Dose Admin Sodium Chloride 10 ml Q8HR IV 08/11/24 14:00 08/14/24 05:53 10 ML Ondansetron HCl 4 mg Q4HP PRN IV 08/11/24 13:00 Docusate Sodium 100 mg BIDPRN PRN PO 08/11/24 13:00 Acetaminophen 650 mg Q6HP PRN PO 08/11/24 13:00 Albuterol 2.5 mg Q6HWA NEB 08/11/24 18:00 08/14/24 05:51 2.5 MG Ipratropium [place] 0.5 mg Q6HWA NEB 08/11/24 18:00 08/14/24 05:51 0.5 MG Latanoprost 1 drop QPM EACHEYE 08/11/24 18:00 08/13/24 18:00 1 DROP Patient Own Medication 1 drop BID EACHEYE 08/11/24 22:00 08/13/24 14:16 1 DROP Albuterol 2.5 mg Q2HPRN PRN NEB 08/11/24 20:45 Ipratropium [place] 0.5 mg Q2HPRN PRN NEB 08/11/24 20:45 Propofol 100 ml @ 2.091 mls/ hr Q24H IV 08/12/24 13:45 Midazolam HCl 50 ml @ 1 mls/hr Q24H IV 08/12/24 13:45 08/14/24 01:18 4 MLS/HR Fentanyl Citrate 250 ml @ 2.5 mls/hr Q24H IV 08/12/24 13:45 08/14/24 03:34 10 MLS/HR Pantoprazole Sodium 40 mg DAILY IV 08/13/24 10:00 08/13/24 09:33 40 MG Piperacillin Sod/ Tazobactam Sod 100 ml @ 25 mls/hr Q8HR IV 08/12/24 23:30 08/14/24 05:52 25 MLS/HR Enoxaparin Sodium 40 mg DAILY SC 08/13/24 10:00 08/13/24 09:34 40 MG Norepinephrine Bitartrate 250 ml @ 1.875 mls/ hr Q24H IV 08/13/24 14:00 Vancomycin HCl 0 ml @ 0 mls/hr UD IV 08/13/24 15:30 Methylprednisolone Sodium Succinate 40 mg Q8HR IV 08/13/24 22:00 08/14/24 05:52 40 MG Enteral Nutritional Formula 1,000 ml 30ML/HR GT 08/13/24 15:30 Examination General examination- patient on mechanical ventilation, on sedation HEENT- PEERLA, no acute nasal discharge Cardiovascular- S1-S2 audible, rate and rhythm regular, no murmur Respiratory- bilateral lung crackles+, + wheezing Gastrointestinal-nontender, bowel sound+. Nondistended Musculoskeletal-swan neck deformity on bilateral hands+, edematous bilateral hands Lower extremity- mild pedal edema+ Neurological- Could not be assessed as patient is on ventilator and sedation Skin- no acute rash or purpura laboratory and microbiology Laboratory Tests 08/14/24 04:30 Test 08/14/24 04:30 Range/Units Serum Glucose 133 H 74-106 mg/dL Microbiology Date/Time Source Procedure Growth Status 08/13/24 04:40 Blood Blood Culture - Preliminary NO GROWTH AFTER 24 HOURS OF INCUBATION. Resulted 08/13/24 02:49 Sputum Gram Stain - Final Resulted 3/19/25 02:49 Sputum Respiratory Culture Pending Resulted Problem List/Assessment/Plan Problem List/Assessment/Plan Assessment and plan Neurology # metabolic encephalopathy/toxic encephalopathy/hypoxic encephalopathy -status post cardiac arrest, status post CPR -patient on mechanical ventilation, on sedation -CT head very mild cortical atrophy -MRI of the brain- No acute intracranial pathology -continue current management Cardiovascular -Acute diastolic heart failure -echo 2D on 08/13/2024-LVEF 60%, concentric LVH with right ventricle and right atrial enlargement. -CAD -pulmonary hypertension -history of hypertension -hyperlipidemia -continue nebulization Respiratory -acute respiratory failure -acute exacerbation of COPD -pulmonary hypertension -Blood culture preliminary no growth so far -Respiratory Culture preliminary no growth -continue nebulization -methylprednisolone 40 mg IV q.12 hours -sildenafil 20 mg t.i.d. Gastrointestinal -transaminitis -monitor CMP Genitourinary/renal -HECTOR likely due to VMN -right kidney cyst in the lower pole -avoid dehydration and nephrotoxic drugs Infectious disease -? Septic shock -acute pneumonia Gram-positive versus Gram-negative -continue Zosyn and vancomycin as prescribed Hemato oncology -anemia of chronic disease -monitor CBC Endocrinology/ metabolic disorder -obesity Musculoskeletal -rheumatoid arthritis -gout -continue current management Skin or elementary -wound care consult in place Lines-left internal jugular central line and right radial artery line Drips-fentanyl, midazolam ETT Vigil's catheter Goals of care/advance care planning Code status ; discussed with >15 minutes PUD prophylaxis: Pantoprazole DVT prophylaxis: Lovenox Plan discussed with Dr. Hernandez , nursing staff, daughter Total time spent on patient evaluation, chart review, assessment and plan, total critical time spent including monitoring mechanical ventilation and excluding procedures was 81 minutes Plan discussed with: Daughter (RN) Dietary Evaluation Review Interpretation of weight loss: up to 20% in 1 year Date of Service: Aug 14, 2024 Billing Provider: ROSHAN HERNANDEZ MD Common Visit Codes: 66368-[id number] CARE 30-74 MIN, 10209-MFAFCCFQ CARE-EACH +30MIN CALI WITT Aug 14, 2024 08:21 ROSHAN HERNANDEZ MD Aug 17, 2024 12:16
--- NOTE | 2024-08-14 09:34 | ECG ---
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
--- NOTE | 2024-08-14 09:36 | DVHSR ---
APPROVED REPORT EXAM: Two-dimensional and M-mode echocardiogram with Doppler and color Doppler. Blood Pressure: 128/56 mmHg INDICATION Cardiac Arrest RISK FACTORS Height: 4'8", Weight: 161 DIMENSIONS LVDd3.5 (3.8-5.7cm)LA (2D)3.8 (1.9-4.0cm)Aortic Root3.0 (2.0-3.7cm) LVDs2.4 (2.5-4.0cm)LA (MM) (1.9-4.0cm)Aortic Cusp Exc1.2 (1.5-2.0cm) EF (%) 60.0 (55-70%)Rt. Atrium4.7 (1.9-4.0cm)Asc. Aorta cm IVSd1.0 (0.7-1.1cm)RV (D)4.1 (1.8-2.4cm) PWd1.2 (0.7-1.1cm) Mitral Valve MitralMitral Stenosis E wave1.09m/sMV Mean GR.mmHg A wave0.37m/sMV Peak GR.mmHg E/A ratio2.92D MVAcm2 DECEL [id number] 1/2 Timems Aortic Valve Aortic ValveAortic Stenosis V10.78m/Chu Mean GR.4mmHg V21.32m/Chu Peak GR.7mmHg LVOT Diameter1.9 (1.8-2.4cm)Doppler AVA1.67cm2 Pulmonic Valve V21.01m/s Tricuspid Valve TR Velocity3.05m/s [id number] Other Information Quality : Technically LimitedRhythm : Technically limited study due to body habitus and on vent. Conclusion Technically good study. Undetermined rhythm. Concentric LVH with right ventricle and right atrial enlargement. Mild concentric LVH. Valves appear to be structurally normal. Mild aortic sclerosis without stenosis. Right ventricular function appears preserved. Left ventricular function appears normal however there is abnormal septal motion due to an intraventricular conduction delay. Doppler reveals moderate tricuspid regurgitation. No pericardial effusion masses or vegetations discernible.
[2024-08-14] MEDS ORDERED: FUROSEMIDE 20 MG/2 ML VIAL IV SCH (10:00)
--- NOTE | 2024-08-14 10:40 | DVHPN2 ---
Progress Note - Dictate Date Seen: Aug 14, 2024 Medical Necessity Reason Pt with a Central, PICC or Fol: Yes The following are medically ne: Central Line, Vigil Catheter Reason for vigil catheter: Strict I&O Subjective Ms. Recinos is a 73 years old female with a history of hypertension, dyslipidemia, coronary artery disease, heart attack, congestive heart failure, asthma, COPD on home oxygen, gout, anemia, the patient was admitted found her custodial on 08/11/2024 with a chief company of shortness of breath I have seen and examined the patient, I have talked to her nurse and son. She is intubated, sedated, responsive to painful stimuli, pupils are equal and reactive (RN: Right pupil is slightly bigger earlier this morning) ABG, 08/12/2024: Respiratory acidosis, hypoxia WBC/HB/PLT/MCV, 08/12/2024: 7.2/11.9/302/85.7 CMP, 08/12/2024: Unremarkable HGB A1c, 04/11/2024: 500 TG/HDL/LDL/HDL, 05/2023: 101/6/186/45 Vitamin B12, 03/2024: 1161 TSH, 03/2024: 1.39 EEG 08/13/2024: Remarkably abnormal Extremity venous study, 08/13/2024: No evidence of right or left femoropopliteal venous thrombosis. Chest x-ray, 08/12/2024: Left central venous catheter overlies the left upper chest and may be not position. Clinical correlation advised. Endotracheal tube in satisfactory position. Left central venous catheter in uncertain position CT head, 08/12/2024: Very mild cortical atrophy otherwise unremarkable study CTA chest, 08/13/2024: Grossly enlarged pulmonary arteries underlying pulmonary arterial hypertension is suspected no pulmonary embolus There are bilateral infiltrates in the lung bases vital signs Vital Sign Date Time Temp Pulse Resp B/P (MAP) Pulse Ox O2 Delivery O2 Flow Rate FiO2 08/14/24 10:27 69 18 139/70 (93) 98 40 08/14/24 09:35 Mechanical Ventilator+ 08/14/24 09:15 98.1 208.6 08/12/24 11:22 2 Total Intake and Output 08/13/24 08/13/24 08/14/24 15:00 23:00 07:00 Intake Total 189.875 ml 259.500 ml 202.000 ml Balance 189.875 ml 259.500 ml 202.000 ml medications Current Medications Medications Dose Ordered Sig/Kristen Route Start Time Stop Time Status Last Admin Dose Admin Sodium Chloride 10 ml Q8HR IV 08/11/24 14:00 08/14/24 08:03 10 ML Ondansetron HCl 4 mg Q4HP PRN IV 08/11/24 13:00 Docusate Sodium 100 mg BIDPRN PRN PO 08/11/24 13:00 Acetaminophen 650 mg Q6HP PRN PO 08/11/24 13:00 Albuterol 2.5 mg Q6HWA NEB 08/11/24 18:00 08/14/24 05:51 2.5 MG Ipratropium [place] 0.5 mg Q6HWA NEB 08/11/24 18:00 08/14/24 05:51 0.5 MG Latanoprost 1 drop QPM EACHEYE 08/11/24 18:00 08/13/24 18:00 1 DROP Patient Own Medication 1 drop BID EACHEYE 08/11/24 22:00 08/14/24 08:03 1 DROP Albuterol 2.5 mg Q2HPRN PRN NEB 08/11/24 20:45 Ipratropium [place] 0.5 mg Q2HPRN PRN NEB 08/11/24 20:45 Propofol 100 ml @ 2.091 mls/ hr Q24H IV 08/12/24 13:45 Midazolam HCl 50 ml @ 1 mls/hr Q24H IV 08/12/24 13:45 08/14/24 01:18 4 MLS/HR Fentanyl Citrate 250 ml @ 2.5 mls/hr Q24H IV 08/12/24 13:45 08/14/24 03:34 10 MLS/HR Pantoprazole Sodium 40 mg DAILY IV 08/13/24 10:00 08/14/24 08:02 40 MG Piperacillin Sod/ Tazobactam Sod 100 ml @ 25 mls/hr Q8HR IV 08/12/24 23:30 08/14/24 05:52 25 MLS/HR Enoxaparin Sodium 40 mg DAILY SC 08/13/24 10:00 08/14/24 08:02 40 MG Norepinephrine Bitartrate 250 ml @ 1.875 mls/ hr Q24H IV 08/13/24 14:00 Vancomycin HCl 0 ml @ 0 mls/hr UD IV 08/13/24 15:30 Methylprednisolone Sodium Succinate 40 mg Q8HR IV 08/13/24 22:00 08/14/24 05:52 40 MG Enteral Nutritional Formula 1,000 ml 30ML/HR GT 08/13/24 15:30 Vancomycin HCl 100 ml @ 100 mls/hr Q24H IV 08/14/24 17:00 objective The patient is well-nourished and well-developed with no distress. The patient is intubated MENTAL STATUS: Subjective, CRANIAL NERVES: Pupils are equal, round and reactive.There are corneal reflexes and doll's eyes phenomenon. No signs of facial weakness. There are weak gagging or coughing reflexes SENSATION: No responses to pain stimuli. MOTOR: Normal tone in the upper and lower extremity. Normal muscle bulk. No fasciculations. No spontaneous movement. REFLEXES: Deep tendon reflexes are symmetrical. No pathological reflexes. CEREBELLAR/COORDINATION: Deferred GAIT/STATION: deferred. laboratory and microbiology Laboratory Tests 08/14/24 04:30 Test 08/14/24 04:30 Range/Units Serum Glucose 133 H 74-106 mg/dL Problem List Coma Hypoxic encephalopathy Metabolic encephalopathy Toxic encephalopathy Cardiopulmonary arrest Respiratory failure Hypoxia Status post CPR Acidosis Seizure-like activity to rule out seizure attack Reported anisocoria with right-sided slightly weaker on 08/14/2024 Assessment/Plan Monitoring Supportive treatment ICU care Follow-up labs MR brain Follow-up CT head if the patient was not a MRI candidate Respiratory support/vent management Stabilize vitals/pressor drip Oxygen DVT prophylaxis GI prophylaxis More recommendation per clinical course This medical document was created using an electronic medical record system with [employer] dictation system. Although this document has been carefully reviewed, there may still be some phonetic and typographical errors. These areas are purely typographical due to imperfections of the software programs, and do not reflect any compromise in the patient's medical care. Prognosis guarded Dietary Evaluation Review Interpretation of weight loss: up to 20% in 1 year Plan discussed with: Son, Other Critical Care Time(min): 30 PATRIZIA SHERWOOD MD Aug 14, 2024 10:40
--- NOTE | 2024-08-14 10:54 | ECG ---
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
[2024-08-14] MEDS: SILDENAFIL CITRATE 20 MG TAB PO SCH (12:28)
[2024-08-14] MEDS: FREE WATER GT SCH (12:28)
--- NOTE | 2024-08-14 15:58 | DVH ---
MR brain HISTORY: s/p cardiac arrest Comparison: CT brain 08/12/2024 TECHNIQUE: MR was performed with a surface coil at 1.5 T magnet. Sagittal, axial and coronal T1 and T 2-weighted images were obtained. FINDINGS: No areas of restricted diffusion on diffusion-weighted images. No areas of T2 star signal hypointensity on gradient echo images No areas of T2 signal hyperintensity on FLAIR imaging sequences No hydrocephalus. No midline shift. No extra-axial fluid collections Orbits paranasal sinuses sella and cerebellopontine angles are unremarkable in appearance IMPRESSION: 1. No acute intracranial pathology
--- NOTE | 2024-08-14 16:13 | ECG ---
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
[2024-08-14] MEDS: VANCOMYCIN 750MG KIT 100 ML IV SCH (16:31)
[2024-08-14] MEDS: methylPREDNISolone SOD SUCC 40 MG/ML VL IV SCH (21:32)
[2024-08-15] VITALS (113 sets, daily range): BP systolic 110–187; BP diastolic 49–112; PULSE 14–130; RESP 14–29; TEMP 97.3–100.3; O2SAT 88–100
[2024-08-15 05:12] LABS: Basophils # (auto) 0 10 ^3/uL (0-0.2); Eosinophils # (auto) 0 10 ^3/uL (0-0.8); Hematocrit 32.7 % (36.0-46.0); Hemoglobin 10.5 g/dL (12.2-16.2); Lymphocytes # (auto) 0.8 10 ^3/uL (0.4-5.4); Lymphocytes % (auto) 6.3 % (10.0-50.0); Mean Corpuscular Hemoglobin 27.7 pg (28.0-32.0); Mean Corpuscular Hgb Conc. 32.3 g/dL (32.0-36.0); Mean Corpuscular Volume 85.8 fL (80.0-100.0); Monocytes # (auto) 0.7 10 ^3/uL (0-1.3); Monocytes % (auto) 5.6 % (0.0-12.0); Neutrophils # (auto) 10.7 10 ^3/uL (1.6-8.6); Neutrophils % (auto) 88.1 % (37.0-80.0); Platelet Count (auto) 217 10^3/uL (140-450); Red Blood Cells 3.81 10^6/uL (4.0-5.20); White Blood Cell 12.1 10^3/uL (4.4-10.8)
[2024-08-15 05:32] LABS: Albumin 3.5 g/dL (3.2-4.8); Alkaline Phosphatase 88 U/L (46-116); Anion Gap 7 (5-15); Aspartate Aminotransferase 37 U/L (13-40); BUN/Creatinine Ratio 26.5 (10.0-20.0); Calcium 8.9 mg/dL (8.7-10.4); Chloride 104 mmol/L (98-107); Potassium 3.7 mmol/L (3.5-5.1); Total Protein 5.9 g/dL (5.7-8.2)
[2024-08-15 05:33] LABS: Bilirubin, Total 0.5 mg/dL (0.2-1.0)
[2024-08-15 05:34] LABS: Alanine Aminotransferase 56 U/L (7-40); Blood Urea Nitrogen 26 mg/dL (9-23); Carbon Dioxide 37 mmol/L (20-31); Glucose 134 mg/dL (74-106); Magnesium 2.7 mg/dL (1.6-2.6); Sodium 148 mmol/L (136-145)
--- NOTE | 2024-08-15 05:47 | DVH ---
CHEST RADIOGRAPH Indication: PNA Technique: Single frontal view of the chest was obtained Comparison: XY CHEST PORTABLE on DOS: 08/14/24 FINDINGS: Lines and Tubes: The endotracheal tube, enteric tube are unchanged in position. Left central venous catheter also unchanged in position. Lungs: Hazy bilateral opacities are unchanged. Pleura: No effusion. No pneumothorax. Cardiomediastinal contours: Enlarged but stable Cardiovascular silhouette. Bones: No acute osseous abnormality. IMPRESSION: 1. No significant interval change.
--- NOTE | 2024-08-15 06:52 | DVHPNRES ---
Progress Note Date Seen: Aug 15, 2024 Resident Creating Document: CALI WITT RESIDENT Medical Necessity Reason Pt with a Central, PICC or Fol: Yes The following are medically ne: Central Line, Vigil Catheter Reason for vigil catheter: Strict I&O Subjective Review of Systems Patient is 73 years old female with past medical history of asthma, COPD, on home oxygen NCO2 2L/mnt, CAD-[place], CHF, pulmonary hypertension, hypertension, hyperlipidemia, rheumatoid arthritis, gout, anemia came to the hospital with shortness of breaths. Information gathered from reviewing the chart and talking to the family. Having chest pain and shortness of breaths for couple of days before she came into the hospital. Patient was admitted the hospital 1 month before with the abdominal pain, pneumonia. Following discharge patient was sent to [facility] for rehabilitation. Significant initial lab workup-troponin I with a normal limit, BNP elevated 273. CXR-Patchy bibasilar airspace opacities. Cardiomegaly. CT head-08/12/2024 -Very mild cortical atrophy otherwise unremarkable study. CT angio on 08/13/2024- grossly enlarged the main pulmonary artery measures 5.3 cm in caliber, right pulmonary artery measures 3.13 cm in caliber in the left pulmonary artery measures 2.67 cm in caliber. Heart is enlarged. There is a posterior consolidated right lower lobe evidence for bilateral interstitial infiltrates and possibly edema. No evidence for pulmonary embolus the ascending aorta measures 3.77 cm. Also bilateral small consolidates in the posterior right and left lower lobes. Grossly enlarged pulmonary arteries underlying pulmonary arterial hypertension is suspected no pulmonary embolus. There are bilateral infiltrates in the lung bases. One 08/13/2024 Doppler study of the lower extremity negative for DVT. ECHO 2D on 08/14/24 revealed-LVEF 60%, concentric left ventricular hypertrophy with right ventricle and right atrial enlargement. Patient had several visits over the year in this hospital. In July 17, 2024, April 16, 2024, June 16, 2023, February 2023, August 14, 2022, September 2012, August 2012, August 2012 Code assist was called on 08/12/2024-patient was found to have unresponsive, stiffness of the bilateral upper and lower extremity, bradycardia, agonal respiration. Code assist was converted to code blue were severe was initiated by bedside RN. Status post CPR. ROSC 20 minutes Patient was intubated on 08/12/2024. Left internal jugular central line was placed on 08/12/2024 Bronchoscopy was done on 08/12/2024-impression- Left lower lobe atelectasis due to mucous plugging. Mucous plugging from L6-L10 and R1-R3 Echo 2D- 04/12/2024 revealed an LVEF of 50% with moderate LVH, RV and left atrium enlargement. The patient also underwent a recent right and left cardiac catheterization on 12/2023 revealing no significant coronary artery disease, elevated left ventricular end-diastolic pressures indicating diastolic heart failure, and pulmonary hypertension deemed to be multifactorial primarily secondary to diastolic heart failure in addition to chronic lung processes for which she was initiated on Sildenafil therapy on 04/2024. Patient had nuclear stress test in -03/19/2023 negative for ischemia, LVEF 59% PMH-heart failure, COPD, asthma, pulmonary hypertension, CAD, [place], hypertension, hyperlipidemia, diabetes mellitus type 2, COPD, asthma, gout, rheumatoid arthritis, anemia PSH- tubal ligation, right foot surgery, tonsillectomy, bilateral total knee replacement, right eye surgery, Allergy- , levofloxacin, ceftriaxone Personal History/ Social History- No history of smoking, alcohol and other drug abuse Patient was seen today for clinical evaluation. Labs and chart reviewed. On 08/15/2024 failed CPAP trial as patient was not awake or alert, off sedation or pressor Plan is to do CPAP trial at a.m. No sedative please Overnight patient's BP ranging from 108-160/55-89, -pulse 70-110, temperature 98.1-98.0, I/O- intake 1268, output 1000 mL, positive balance 268 Lab workup All sedatives were off, patient with a poor response, CPAP trial failed this morning. ABG on 11/15/2024-Ph- 7.43, PCO2 46.1, PO2 80.4, bicarbonate 30.5 WBC 7.1> 7.2> 14.1> 11.4> 9.3> 12.1 Hemoglobin 13.1> 11.9> 10.8> 11.0> 10.5 platelet 276>> 302 264> 252> 229> 217 Sodium 137> 142> 147> 146> 148> 148 Potassium> 3.9> 4.0> 3.7> 3.6> 3.7> 3.7 Serum creatinine 0.92> 0.87> 1.22> 1.21> 1.19> 0.98 BUN 18> 31> 26> 29> 26 Serum> bilirubin 0.5> 0.6>0.5> 0.5 AST> 20 88> 50> 37 ALT 17> 91> 69> 56 Blood culture no growth [place] far [place] [id number] colony-forming units per mL yeast Respiratory Culture preliminary no growth Patient on antibiotic Zosyn and vancomycin Provider spoke to patient's daughter Ms. Nieves Levy,-[phone], discussed patient's current medical condition, plan of care, answered her questions Objective vital signs Vital Sign Date Time Temp Pulse Resp B/P (MAP) Pulse Ox O2 Delivery O2 Flow Rate FiO2 08/15/24 06:30 88 18 128/71 (90) 94 141/72 (95) 08/15/24 06:13 35 08/15/24 06:00 Mechanical Ventilator+ 08/15/24 04:01 98.2 98.2 Total Intake and Output 08/14/24 08/14/24 08/15/24 15:00 23:00 07:00 Intake Total 108.5 ml 600 ml 553 ml Output Total 400 ml 600 ml Balance 108.5 ml 200 ml -47 ml medications Current Medications Medications Dose Ordered Sig/Kristen Route Start Time Stop Time Status Last Admin Dose Admin Sodium Chloride 10 ml Q8HR IV 08/11/24 14:00 08/15/24 05:35 10 ML Ondansetron HCl 4 mg Q4HP PRN IV 08/11/24 13:00 Docusate Sodium 100 mg BIDPRN PRN PO 08/11/24 13:00 Acetaminophen 650 mg Q6HP PRN PO 08/11/24 13:00 Albuterol 2.5 mg Q6HWA NEB 08/11/24 18:00 08/15/24 06:13 2.5 MG Ipratropium Auberry 0.5 mg Q6HWA NEB 08/11/24 18:00 08/15/24 06:13 0.5 MG Latanoprost 1 drop QPM EACHEYE 08/11/24 18:00 08/14/24 17:31 1 DROP Patient Own Medication 1 drop BID EACHEYE 08/11/24 22:00 08/14/24 22:00 1 DROP Albuterol 2.5 mg Q2HPRN PRN NEB 08/11/24 20:45 Ipratropium Auberry 0.5 mg Q2HPRN PRN NEB 08/11/24 20:45 Propofol 100 ml @ 2.091 mls/ hr Q24H IV 08/12/24 13:45 Midazolam HCl 50 ml @ 1 mls/hr Q24H IV 08/12/24 13:45 08/14/24 01:18 4 MLS/HR Fentanyl Citrate 250 ml @ 2.5 mls/hr Q24H IV 08/12/24 13:45 08/14/24 03:34 10 MLS/HR Pantoprazole Sodium 40 mg DAILY IV 08/13/24 10:00 08/14/24 08:02 40 MG Piperacillin Sod/ Tazobactam Sod 100 ml @ 25 mls/hr Q8HR IV 08/12/24 23:30 08/15/24 05:35 25 MLS/HR Enoxaparin Sodium 40 mg DAILY SC 08/13/24 10:00 08/14/24 08:02 40 MG Norepinephrine Bitartrate 250 ml @ 1.875 mls/ hr Q24H IV 08/13/24 14:00 Vancomycin HCl 0 ml @ 0 mls/hr UD IV 08/13/24 15:30 Enteral Nutritional Formula 1,000 ml 30ML/HR GT 08/13/24 15:30 Vancomycin HCl 100 ml @ 100 mls/hr Q24H IV 08/14/24 17:00 08/14/24 16:31 100 MLS/HR Purified Water 200 ml Q6HR GT 08/14/24 12:00 08/15/24 05:35 200 ML Methylprednisolone Sodium Succinate 40 mg Q12HR IV 08/14/24 22:00 08/14/24 21:32 40 MG Sildenafil Citrate 20 mg TID@08,14,20 PO 08/14/24 14:00 08/14/24 20:12 20 MG Examination General examination- patient on mechanical ventilation, on sedation HEENT- PEERLA, no acute nasal discharge Cardiovascular- S1-S2 audible, rate and rhythm regular, no murmur Respiratory- bilateral lung crackles+, + wheezing Gastrointestinal-nontender, bowel sound+. Nondistended Musculoskeletal-swan neck deformity on bilateral hands+, edematous bilateral hands Lower extremity- mild pedal edema+ Neurological- Could not be assessed as patient is on ventilator and sedation Skin- no acute rash or purpura laboratory and microbiology Laboratory Tests 08/15/24 04:55 Test 08/15/24 04:55 Range/Units Serum Glucose 134 H 74-106 mg/dL Microbiology Date/Time Source Procedure Growth Status 08/13/24 04:40 Blood Blood Culture - Preliminary NO GROWTH AFTER 48 HOURS OF INCUBATION. Resulted 08/13/24 03:00 Urine - Vigil Port Urine Culture - Preliminary Resulted 08/13/24 02:49 Sputum Gram Stain - Final Resulted 08/13/24 02:49 Sputum Respiratory Culture - Preliminary Resulted Problem List/Assessment/Plan Problem List/Assessment/Plan Assessment and plan On 08/15/2024 failed CPAP trial as patient was not awake or alert, off sedation or pressor Plan is to do CPAP trial at a.m. No sedative please Neurology # metabolic encephalopathy/toxic encephalopathy/hypoxic encephalopathy -status post cardiac arrest, status post CPR -patient on mechanical ventilation, on sedation -CT head very mild cortical atrophy -MRI of the brain- No acute intracranial pathology -continue current management Cardiovascular -Acute diastolic heart failure -echo 2D on 08/13/2024-LVEF 60%, concentric LVH with right ventricle and right atrial enlargement. -CAD -pulmonary hypertension -history of hypertension -hyperlipidemia -continue nebulization Respiratory -acute respiratory failure -acute exacerbation of COPD -pulmonary hypertension -failed CPAP trial on 08/15/2024 -Blood culture no growth so far -Urine [place] [id number] colony-forming units per mL yeast -Respiratory Culture preliminary no growth -continue nebulization -methylprednisolone 40 mg IV q.12 hours -sildenafil 20 mg t.i.d. Gastrointestinal -transaminitis -monitor CMP Genitourinary/renal -HECTOR likely due to VMN -right kidney cyst in the lower pole -avoid dehydration and nephrotoxic drugs Infectious disease -? Septic shock -acute pneumonia Gram-positive versus Gram-negative -continue Zosyn and vancomycin as prescribed Hemato oncology -anemia of chronic disease -monitor CBC Endocrinology/ metabolic disorder -obesity Musculoskeletal -rheumatoid arthritis -gout -continue current management Skin or elementary -wound care consult in place Lines-left internal jugular central line and right radial artery line Drips- ETT Vigil's catheter Goals of care/advance care planning Code status ; discussed with >15 minutes PUD prophylaxis: Pantoprazole DVT prophylaxis: Lovenox Plan discussed with Dr. Ortega , nursing staff, daughter Total time spent on patient evaluation, chart review, assessment and plan, total critical time spent including monitoring mechanical ventilation, CPAP trial 83 minutes Plan discussed with: Daughter (RN), Other (RN) My Orders My Orders Orders - CALI WITT Procedure Category Date Status Time Abg W/ Co-Ox RT 08/15/24 Logged 06:00 Chest Portable XY 08/15/24 Resulted 05:00 Dietary Evaluation Review Comments: 1) EN Glucerna Jevity Jose Alejandro @ 35ml/hr(goal) along with Pro-stat 1 pk TID. Start @ 30ml/hr increase 10ml/hr Q4H until goal is reached. water flush 50ml Q4H if allowed. 2) Consider TPN/PN if NPO>7 days 3) Advance diet as medically feasible 4) Continue current plan of care Expected Outcomes/Goals: Pt will meet >75% estimated needs Fu 2-3 days Interpretation of weight loss: up to 20% in 1 year CALI WITT RESIDENT Aug 15, 2024 06:52
[2024-08-15] MEDS: ALBUTEROL SULF 2.5 MG/0.5ML(0.5%) NEB SOLN NEB ONE (07:54)
[2024-08-15] MEDS: IPRATROPIUM BROM 0.5 MG/2.5ML INH SOL NEB ONE (07:54)
[2024-08-15] MEDS: FLUCONAZOLE 200MG/100ML 100 ML IV ONE (08:03)
[2024-08-15] MEDS: FUROSEMIDE 20 MG/2 ML VIAL IV ONE (08:04)
[2024-08-15 08:05] LABS: Base Excess 5.5 mmol/L (-2.0-3.0)
[2024-08-15] MEDS: hydrALAZINE HCL 20 MG/ML VL IV PRN (17:02)
--- NOTE | 2024-08-15 21:09 | DVHPN2 ---
Progress Note - Dictate Date Seen: Aug 15, 2024 Medical Necessity Reason Pt with a Central, PICC or Fol: Yes The following are medically ne: Central Line, Vigil Catheter Reason for vigil catheter: Strict I&O Subjective Ms. Recinos is a 73 years old female with a history of hypertension, dyslipidemia, coronary artery disease, heart attack, congestive heart failure, asthma, COPD on home oxygen, gout, anemia, the patient was admitted found her residential on 08/11/2024 with a chief company of shortness of breath I have seen and examined the patient, I have talked to her nurse She is intubated, sedated, responsive to painful stimuli, pupils are equal and reactive She was on CPAP earlier today Fentanyl 25 mcg/hour, preset 0.4 mcg ABG, 08/12/2024: Respiratory acidosis, hypoxia WBC/HB/PLT/MCV, 08/12/2024: 7.2/11.9/302/85.7 CMP, 08/12/2024: Unremarkable HGB A1c, 04/11/2024: 500 TG/HDL/LDL/HDL, 05/2023: 101/6/186/45 Vitamin B12, 03/2024: 1161 TSH, 03/2024: 1.39 EEG 08/13/2024: Remarkably abnormal Extremity venous study, 08/13/2024: No evidence of right or left femoropopliteal venous thrombosis. Chest x-ray, 08/12/2024: Left central venous catheter overlies the left upper chest and may be not position. Clinical correlation advised. Endotracheal tube in satisfactory position. Left central venous catheter in uncertain position Chest x-ray, 08/15/24: Hazy bilateral opacities are unchanged CT head, 08/12/2024: Very mild cortical atrophy otherwise unremarkable study CTA chest, 08/13/2024: Grossly enlarged pulmonary arteries underlying pulmonary arterial hypertension is suspected no pulmonary embolus There are bilateral infiltrates in the lung bases MRI brain, 07/17/24: No acute intracranial pathology vital signs Vital Sign Date Time Temp Pulse Resp B/P (MAP) Pulse Ox O2 Delivery O2 Flow Rate FiO2 08/15/24 20:00 35 08/15/24 20:00 78 08/15/24 20:00 18 93 Mechanical Ventilator+ 08/15/24 19:20 163/100 08/15/24 17:15 99.3 99.3 Total Intake and Output 08/14/24 08/14/24 08/15/24 15:00 23:00 07:00 Intake Total 108.5 ml 600 ml 553 ml Output Total 400 ml 600 ml Balance 108.5 ml 200 ml -47 ml medications Current Medications Medications Dose Ordered Sig/Kristen Route Start Time Stop Time Status Last Admin Dose Admin Sodium Chloride 10 ml Q8HR IV 08/11/24 14:00 08/15/24 08:04 10 ML Ondansetron HCl 4 mg Q4HP PRN IV 08/11/24 13:00 Docusate Sodium 100 mg BIDPRN PRN PO 08/11/24 13:00 Acetaminophen 650 mg Q6HP PRN PO 08/11/24 13:00 Albuterol 2.5 mg Q6HWA NEB 08/11/24 18:00 08/15/24 18:57 2.5 MG Ipratropium Casper 0.5 mg Q6HWA [facility] 08/11/24 18:00 08/15/24 18:57 0.5 MG Latanoprost 1 drop QPM EACHEYE 08/11/24 18:00 08/15/24 16:31 1 DROP Patient Own Medication 1 drop BID EACHEYE 08/11/24 22:00 08/15/24 08:04 1 DROP Albuterol 2.5 mg Q2HPRN PRN NEB 08/11/24 20:45 Ipratropium Casper 0.5 mg Q2HPRN PRN NEB 08/11/24 20:45 Propofol 100 ml @ 2.091 mls/ hr Q24H IV 08/12/24 13:45 Midazolam HCl 50 ml @ 1 mls/hr Q24H IV 08/12/24 13:45 08/14/24 01:18 4 MLS/HR Fentanyl Citrate 250 ml @ 2.5 mls/hr Q24H IV 08/12/24 13:45 08/15/24 19:20 2.5 MLS/HR Pantoprazole Sodium 40 mg DAILY IV 08/13/24 10:00 08/15/24 08:03 40 MG Piperacillin Sod/ Tazobactam Sod 100 ml @ 25 mls/hr Q8HR IV 08/12/24 23:30 08/15/24 13:18 25 MLS/HR Enoxaparin Sodium 40 mg DAILY SC 08/13/24 10:00 08/15/24 08:03 40 MG Norepinephrine Bitartrate 250 ml @ 1.875 mls/ hr Q24H IV 08/13/24 14:00 Vancomycin HCl 0 ml @ 0 mls/hr UD IV 08/13/24 15:30 Enteral Nutritional Formula 1,000 ml 30ML/HR GT 08/13/24 15:30 Vancomycin HCl 100 ml @ 100 mls/hr Q24H IV 08/14/24 17:00 08/15/24 16:33 100 MLS/HR Purified Water 200 ml Q6HR GT 08/14/24 12:00 08/15/24 16:31 200 ML Methylprednisolone Sodium Succinate 40 mg Q12HR IV 08/14/24 22:00 08/15/24 08:03 40 MG Sildenafil Citrate 20 mg TID@08,14,20 PO 08/14/24 14:00 08/15/24 19:56 20 MG Fluconazole 100 ml @ 100 mls/hr DAILY IV 08/16/24 10:00 Hydralazine HCl 10 mg Q6HP PRN IV 08/15/24 15:30 08/15/24 17:02 10 MG Dexmedetomidine HCl 400 mcg/ Dextrose 100 ml @ 3.655 mls/ hr Q24H IV 08/15/24 17:30 08/15/24 17:38 3.655 MLS/HR objective The patient is well-nourished and well-developed with no distress. The patient is intubated MENTAL STATUS: Subjective, CRANIAL NERVES: Pupils are equal, round and reactive.There are corneal reflexes and doll's eyes phenomenon. No signs of facial weakness. There are weak gagging or coughing reflexes SENSATION: Responses to pain stimuli. MOTOR: Normal tone in the upper and lower extremity. Normal muscle bulk. No fasciculations. No spontaneous movement. REFLEXES: Deep tendon reflexes are symmetrical. No pathological reflexes. CEREBELLAR/COORDINATION: Deferred GAIT/STATION: deferred. laboratory and microbiology Laboratory Tests 08/15/24 04:55 Test 08/15/24 04:55 Range/Units Serum Glucose 134 H 74-106 mg/dL Problem List Coma Hypoxic encephalopathy Metabolic encephalopathy Toxic encephalopathy Cardiopulmonary arrest Respiratory failure Hypoxia Status post CPR Sepsis Pneumonia Acidosis Seizure-like activity to rule out seizure attack Reported anisocoria with right-sided slightly weaker on 08/14/2024 Assessment/Plan Monitoring Supportive treatment ICU care Follow-up labs Respiratory support/vent management Stabilize vitals Antibiotics Oxygen DVT prophylaxis GI prophylaxis More recommendation per clinical course This medical document was created using an electronic medical record system with [employer] dictation system. Although this document has been carefully reviewed, there may still be some phonetic and typographical errors. These areas are purely typographical due to imperfections of the software programs, and do not reflect any compromise in the patient's medical care. Prognosis Guarded Dietary Evaluation Review Comments: 1) EN Glucerna Jevity Jose Alejandro @ 35ml/hr(goal) along with Pro-stat 1 pk TID. Start @ 30ml/hr increase 10ml/hr Q4H until goal is reached. water flush 50ml Q4H if allowed. 2) Consider TPN/PN if NPO>7 days 3) Advance diet as medically feasible 4) Continue current plan of care Expected Outcomes/Goals: Pt will meet >75% estimated needs Fu 2-3 days Interpretation of weight loss: up to 20% in 1 year Plan discussed with: Other PATRIZIA SHERWOOD MD Aug 15, 2024 21:09
[2024-08-16] VITALS (108 sets, daily range): BP systolic 84–190; BP diastolic 53–128; PULSE 51–126; RESP 11–31; TEMP 97.7–99.3; O2SAT 16–99
[2024-08-16 03:42] LABS: Basophils # (auto) 0 10 ^3/uL (0-0.2); Basophils % (auto) 0.1 % (0.0-2.0); Eosinophils # (auto) 0 10 ^3/uL (0-0.8); Hematocrit 37.4 % (36.0-46.0); Hemoglobin 11.9 g/dL (12.2-16.2); Lymphocytes # (auto) 0.8 10 ^3/uL (0.4-5.4); Lymphocytes % (auto) 5.9 % (10.0-50.0); Mean Corpuscular Hemoglobin 27.2 pg (28.0-32.0); Mean Corpuscular Hgb Conc. 31.9 g/dL (32.0-36.0); Mean Corpuscular Volume 85.2 fL (80.0-100.0); Monocytes # (auto) 0.6 10 ^3/uL (0-1.3); Neutrophils # (auto) 11.5 10 ^3/uL (1.6-8.6); Platelet Count (auto) 228 10^3/uL (140-450); Red Blood Cells 4.39 10^6/uL (4.0-5.20); Red Cell Distribution Width 15.2 % (11.8-14.3); White Blood Cell 12.9 10^3/uL (4.4-10.8)
[2024-08-16 03:49] LABS: Alkaline Phosphatase 93 U/L (46-116); Anion Gap 7 (5-15); BUN/Creatinine Ratio 27.8 (10.0-20.0); Bilirubin, Total 0.8 mg/dL (0.2-1.0); Blood Urea Nitrogen 22 mg/dL (9-23); Calcium 9.6 mg/dL (8.7-10.4); Chloride 103 mmol/L (98-107); Magnesium 2.6 mg/dL (1.6-2.6); Sodium 143 mmol/L (136-145); Total Protein 6.6 g/dL (5.7-8.2)
[2024-08-16 03:51] LABS: Alanine Aminotransferase 58 U/L (7-40); Aspartate Aminotransferase 43 U/L (13-40); Carbon Dioxide 33 mmol/L (20-31); Glucose 160 mg/dL (74-106); Potassium 3.5 mmol/L (3.5-5.1)
--- NOTE | 2024-08-16 06:19 | DVH ---
CHEST RADIOGRAPH Indication: PNA/CHF Technique: Single frontal view of the chest was obtained COMPARISON: XY CHEST PORTABLE on DOS: 08/15/24, XY CHEST PORTABLE on DOS: 08/14/24, XY CHEST PORTABLE o n DOS: 08/13/24, XY CHEST XRAY 1 VIEW on DOS: 08/12/24, XY CHEST PORTABLE on DOS: 08/11/24 FINDINGS: Lines and Tubes: Lines and tubes are unchanged. Lungs: Multifocal bilateral pulmonary opacities are stable in appearance. Pleura: No effusion. No pneumothorax. Cardiomediastinal contours: Unremarkable Bones: Unremarkable IMPRESSION: 1. No evidence of significant interval change. Stable appearing multifocal bilateral pulmonary opacit ies.
[2024-08-16 06:36] LABS: Base Excess 6.9 mmol/L (-2.0-3.0)
[2024-08-16] MEDS: FLUCONAZOLE 200MG/100ML 100 ML IV SCH (07:43)
[2024-08-16] MEDS: POTASSIUM CHL 20MEQ/50ML 50 ML IV SCH (09:19)
--- NOTE | 2024-08-16 14:21 | DVHPN2 ---
Subjective no respons to pain, titrate sedation, doing otherwise well on CPAP. add oral medication to assist sedation titration critical care time 50 minutes Reviewed: Care Plan, H&P, Labs, Medications, Previous Orders, Radiology Changes from previous H/P or p: No Changes Eyes: No Pain, No Vision change, No Conjunctivae inflammation, No Eyelid inflammation, No Other, No Redness ENT: No Ear pain, No Ear discharge, No Nose pain, No Nose discharge, No Nose congestion, No Mouth pain, No Mouth swelling, No Throat pain, No Throat swelling, No Other Cardiovascular: No Chest Pain, No Palpitations, No Orthopnea, No Paroxysmal Noc. Dyspnea, No Edema, No Lt Headedness, No Other Respiratory: Cough; No Dry; Shortness of breath, SOB with excertion, Wheezing; No Hemoptysis, No Pleuritic Pain, No Sputum, No Other Gastrointestinal: No Nausea, No Vomiting, No Abdominal Pain, No Diarrhea, No Constipation, No Melena, No Hematochezia, No Other Genitourinary: No Dysuria, No Frequency, No Incontinence, No Hematuria, No Retention, No Other Musculoskeletal: No other, No neck pain, No shoulder pain, No arm pain, No back pain, No hand pain, No leg pain, No foot pain Skin: No Rash, No Lesions, No Jaundice, No Bruising, No Other Objective Vitals Vital Signs Date Time Temp Pulse Resp B/P (MAP) Pulse Ox O2 Delivery O2 Flow Rate FiO2 08/16/24 13:33 22 94 Mechanical Ventilator+ 35 35 08/16/24 13:33 118 08/16/24 13:15 172/107 (128) 08/16/24 12:00 99.1 99.1 Intake/Output Intake and Output 08/16/24 07:00 Intake Total 1086.385 ml Output Total 3175 ml Balance -2088.615 ml Intake Oral 500 ml IV Total 586.385 ml Output Urine Total 3175 ml Medications Current Medications Medications Dose Ordered Sig/Kristen Route Start Time Stop Time Status Last Admin Dose Admin Sodium Chloride 10 ml Q8HR IV 08/11/24 14:00 08/16/24 09:23 10 ML Ondansetron HCl 4 mg Q4HP PRN IV 08/11/24 13:00 Docusate Sodium 100 mg BIDPRN PRN PO 08/11/24 13:00 Acetaminophen 650 mg Q6HP PRN PO 08/11/24 13:00 Albuterol 2.5 mg Q6HWA NEB 08/11/24 18:00 08/16/24 12:31 2.5 MG Ipratropium [place] 0.5 mg Q6HWA NEB 08/11/24 18:00 08/16/24 12:31 0.5 MG Latanoprost 1 drop QPM EACHEYE 08/11/24 18:00 08/15/24 16:31 1 DROP Patient Own Medication 1 drop BID EACHEYE 08/11/24 22:00 08/16/24 07:39 1 DROP Albuterol 2.5 mg Q2HPRN PRN NEB 08/11/24 20:45 Ipratropium [place] 0.5 mg Q2HPRN PRN NEB 08/11/24 20:45 Propofol 100 ml @ 2.091 mls/ hr Q24H IV 08/12/24 13:45 Midazolam HCl 50 ml @ 1 mls/hr Q24H IV 08/12/24 13:45 08/14/24 01:18 4 MLS/HR Fentanyl Citrate 250 ml @ 2.5 mls/hr Q24H IV 08/12/24 13:45 08/15/24 19:20 2.5 MLS/HR Pantoprazole Sodium 40 mg DAILY IV 08/13/24 10:00 08/16/24 07:42 40 MG Piperacillin Sod/ Tazobactam Sod 100 ml @ 25 mls/hr Q8HR IV 08/12/24 23:30 08/16/24 12:51 25 MLS/HR Enoxaparin Sodium 40 mg DAILY SC 08/13/24 10:00 08/16/24 07:43 40 MG Norepinephrine Bitartrate 250 ml @ 1.875 mls/ hr Q24H IV 08/13/24 14:00 Vancomycin HCl 0 ml @ 0 mls/hr UD IV 08/13/24 15:30 Enteral Nutritional Formula 1,000 ml 30ML/HR GT 08/13/24 15:30 Vancomycin HCl 100 ml @ 100 mls/hr Q24H IV 08/14/24 17:00 08/15/24 16:33 100 MLS/HR Purified Water 200 ml Q6HR GT 08/14/24 12:00 08/16/24 12:00 200 ML Methylprednisolone Sodium Succinate 40 mg Q12HR IV 08/14/24 22:00 08/16/24 07:43 40 MG Sildenafil Citrate 20 mg TID@08,14,20 PO 08/14/24 14:00 08/16/24 12:51 20 MG Fluconazole 100 ml @ 100 mls/hr DAILY IV 08/16/24 10:00 08/16/24 07:43 100 MLS/HR Hydralazine HCl 10 mg Q6HP PRN IV 08/15/24 15:30 08/16/24 12:52 10 MG Dexmedetomidine HCl 400 mcg/ Dextrose 100 ml @ 3.655 mls/ hr Q24H IV 08/15/24 17:30 08/16/24 05:13 5.483 MLS/HR Laboratory Results Laboratory Tests 08/16/24 02:51 Chemistry Test 08/16/24 02:51 Albumin 4.0 g/dL (3.2-4.8) Calcium Level 9.6 mg/dL (8.7-10.4) Magnesium Level 2.6 mg/dL (1.6-2.6) Total Protein 6.6 g/dL (5.7-8.2) LFT Test 08/16/24 02:51 Alanine Aminotransferase (ALT) 58 U/L (7-40) H Alkaline Phosphatase 93 U/L (46-116) Aspartate Amino Transferase (AST) 43 U/L (13-40) H Total Bilirubin 0.8 mg/dL (0.2-1.0) Urinalysis Test 08/14/24 04:30 Urine Color Colorless (Yellow) Urine Clarity Ex.turbid (Clear) Urine pH 5.5 (5.0-9.0) Urine Specific [place] 1.016 (1.001-1.035) Urine Protein Trace (Negative) H Urine Ketones Negative (Negative) Urine Blood 3+ /uL (Negative) H Urine Nitrite Negative (Negative) Urine Bilirubin Negative (Negative) Urine Urobilinogen Normal mg/dL (Negative) Urine Leukocyte Esterase 1+ /uL (Negative) Urine RBC 494 /hpf (0 - 4) Urine Microscopic WBC 20 /HPF (0-5) H Urine Squamous Epithelial Cells Few /hpf (<5) Urine Uric Acid Crystals Many /hpf (None Seen) Urine Bacteria Few /hpf (None Seen) H Urine Hyaline Casts Few /lpf (0 - 2) Urine Mucus Few (None Seen) Urine Yeast (Budding) Many /hpf (None Seen) Urine Glucose Normal mg/dL (Normal) Blood Gas Results Test 08/16/24 06:32 Arterial Blood pH 7.484 (7.350-7.450) FiO2 % 35.0 Microbiology Microbiology Date/Time Source Procedure Growth Status 08/13/24 04:40 Blood Blood Culture - Preliminary NO GROWTH AFTER 72 HOURS OF INCUBATION. Resulted 08/13/24 03:00 Urine - [place] Urine Culture - Final Complete 08/13/24 02:49 Sputum Gram Stain - Final Complete 08/13/24 02:49 Sputum Respiratory Culture - Final Complete Assessment/Plan Assessment/Plan On 08/15/2024 failed CPAP trial as patient was not awake or alert, off sedation or pressor Plan is to do CPAP trial at a.m. No sedative please Neurology # metabolic encephalopathy/toxic encephalopathy/hypoxic encephalopathy -status post cardiac arrest, status post CPR -patient on mechanical ventilation, on sedation -CT head very mild cortical atrophy -MRI of the brain- No acute intracranial pathology -continue current management daily SAT Cardiovascular -Acute diastolic heart failure -echo 2D on 08/13/2024-LVEF 60%, concentric LVH with right ventricle and right atrial enlargement. -CAD -pulmonary hypertension -history of hypertension -hyperlipidemia -continue nebulization Respiratory -acute respiratory failure -acute exacerbation of COPD -pulmonary hypertension -failed CPAP trial on 08/15/2024 -Blood culture no growth so far -Urine culture less than 42253 colony-forming units per mL yeast -Respiratory Culture preliminary no growth -continue nebulization -methylprednisolone 40 mg IV q.12 hours -sildenafil 20 mg t.i.d. doing well on CPAP, no mental status Gastrointestinal -transaminitis -monitor CMP Genitourinary/renal -HECTOR likely due to VMN -right kidney cyst in the lower pole -avoid dehydration and nephrotoxic drugs Infectious disease -? Septic shock -acute pneumonia Gram-positive versus Gram-negative -continue Zosyn and vancomycin as prescribed Hemato oncology -anemia of chronic disease -monitor CBC Endocrinology/ metabolic disorder -obesity Musculoskeletal -rheumatoid arthritis -gout -continue current management Skin or elementary -wound care consult in place Plan discussed with: Raul Date of Service: Aug 16, 2024 Billing Provider: EVANGELIST BOUDREAUX MD Common Visit Codes: [id number] CARE 30-74 MIN EVANGELIST BOUDREAUX MD Aug 16, 2024 14:21
--- NOTE | 2024-08-16 20:13 | DVHPN2 ---
Progress Note - Dictate Date Seen: Aug 16, 2024 Medical Necessity Reason Pt with a Central, PICC or Fol: Yes The following are medically ne: Central Line, Vigil Catheter Reason for vigil catheter: Strict I&O Subjective Patient seen and examined at bedside. Intubated on mechanical ventilator. Overnight events reviewed. vital signs Vital Sign Date Time Temp Pulse Resp B/P (MAP) Pulse Ox O2 Delivery O2 Flow Rate FiO2 08/16/24 18:55 81 18 161/84 (109) 98 30 08/16/24 18:45 98.3 98.3 08/16/24 17:35 Mechanical Ventilator+ Total Intake and Output 08/15/24 08/15/24 08/16/24 15:00 23:00 07:00 Intake Total 150 ml 767.905 ml 168.48 ml Output Total 1650 ml 1525 ml Balance 150 ml -882.095 ml -1356.52 ml medications Current Medications Medications Dose Ordered Sig/Kristen Route Start Time Stop Time Status Last Admin Dose Admin Sodium Chloride 10 ml Q8HR IV 08/11/24 14:00 08/16/24 09:23 10 ML Ondansetron HCl 4 mg Q4HP PRN IV 08/11/24 13:00 Docusate Sodium 100 mg BIDPRN PRN PO 08/11/24 13:00 Acetaminophen 650 mg Q6HP PRN PO 08/11/24 13:00 Albuterol 2.5 mg Q6HWA NEB 08/11/24 18:00 08/16/24 18:55 2.5 MG Ipratropium [place] 0.5 mg Q6HWA NEB 08/11/24 18:00 08/16/24 18:55 0.5 MG Latanoprost 1 drop QPM EACHEYE 08/11/24 18:00 08/16/24 16:33 1 DROP Patient Own Medication 1 drop BID EACHEYE 08/11/24 22:00 08/16/24 07:39 1 DROP Albuterol 2.5 mg Q2HPRN PRN NEB 08/11/24 20:45 Ipratropium [place] 0.5 mg Q2HPRN PRN NEB 08/11/24 20:45 Propofol 100 ml @ 2.091 mls/ hr Q24H IV 08/12/24 13:45 Midazolam HCl 50 ml @ 1 mls/hr Q24H IV 08/12/24 13:45 08/14/24 01:18 4 MLS/HR Fentanyl Citrate 250 ml @ 2.5 mls/hr Q24H IV 08/12/24 13:45 08/15/24 19:20 2.5 MLS/HR Pantoprazole Sodium 40 mg DAILY IV 08/13/24 10:00 08/16/24 07:42 40 MG Piperacillin Sod/ Tazobactam Sod 100 ml @ 25 mls/hr Q8HR IV 08/12/24 23:30 08/16/24 12:51 25 MLS/HR Enoxaparin Sodium 40 mg DAILY SC 08/13/24 10:00 08/16/24 07:43 40 MG Norepinephrine Bitartrate 250 ml @ 1.875 mls/ hr Q24H IV 08/13/24 14:00 Vancomycin HCl 0 ml @ 0 mls/hr UD IV 08/13/24 15:30 Enteral Nutritional Formula 1,000 ml 30ML/HR GT 08/13/24 15:30 Vancomycin HCl 100 ml @ 100 mls/hr Q24H IV 08/14/24 17:00 08/16/24 16:33 100 MLS/HR Purified Water 200 ml Q6HR GT 08/14/24 12:00 08/16/24 16:33 200 ML Methylprednisolone Sodium Succinate 40 mg Q12HR IV 08/14/24 22:00 08/16/24 07:43 40 MG Sildenafil Citrate 20 mg TID@08,14,20 PO 08/14/24 14:00 08/16/24 19:37 20 MG Fluconazole 100 ml @ 100 mls/hr DAILY IV 08/16/24 10:00 08/16/24 07:43 100 MLS/HR Hydralazine HCl 10 mg Q6HP PRN IV 08/15/24 15:30 08/16/24 12:52 10 MG Dexmedetomidine HCl 400 mcg/ Dextrose 100 ml @ 3.655 mls/ hr Q24H IV 08/15/24 17:30 08/16/24 19:14 7.31 MLS/HR objective Gen.: Patient lying in bed in medical ICU. Intubated on mechanical ventilator. Head: Normocephalic, atraumatic. Eyes: PERRLA. Ears: Normal external anatomy. Throat: Endotracheal tube and orogastric tube in place. Neck: Supple, trachea midline. Chest: Transmitted breath sounds bilaterally. Decreased air entry bilaterally. No wheezing. Bibasilar crackles. Cardiovascular: Positive S1, positive S2. Regular rate and rhythm. Abdomen: Positive bowel sounds in all 4 quadrants. Soft, nontender, nondistended. : Vigil in place. Normal external genitalia. Rectal: Deferred. Skin: Warm, dry. Intact. Extremities: 2+ radial pulses bilaterally. No lower extremity edema. Neuro: Off sedation laboratory and microbiology Laboratory Tests 08/16/24 02:51 Test 08/16/24 02:51 Range/Units Serum Glucose 160 H 74-106 mg/dL Assessment/Plan Impression: Acute hypoxic respiratory failure Acute hypercarbic respiratory failure On mechanical ventilator Acute metabolic encephalopathy Shock, septic vs cardiogenic Bilateral pneumonia Obesity BMI 36.1 Mucous plugging Atelectasis Pulmonary hypertension, RVSP 51 mmHg (03/2024) COPD, Moderate obstructive ventilatory defect Reduced DLCO Events: Remains on vent support AC mode; RR 18, VT 400, PEEP 5, FiO2 30% Off sedation On Precedex drip IV fluids Fentanyl drip 25 mcg/hr for analgesia Continue antibiotics ABG reviewed, notable for alkalemia CXR reviewed, shows stable-appearing multifocal bilateral pulmonary opacities. Placed on CPAP at 10:53 AM- PS 10, PEEP 5. Labs and imaging reviewed. Rest of plan as noted below. Plan: s/p cardiac arrest. s/p intubation on mechanical ventilator. AC mode; RR 18, VT 400, PEEP 5, FiO2 30% Titrate FIO2 to keep O2 saturation above 90%. VAP bundle. Daily ABG and CXR while intubated Off sedation S/p therapeutic bronchoscopy on 08/12/24, removed mucous plugging from L6-L10 and R1-R3. S/p central line and arterial line placement See separate procedure notes for details of procedures. Pressors if necessary for hemodynamic support Titrate to keep mean arterial pressure greater than 65 mmHg Continue antibiotics. IV steroids Monitor renal function Monitor electrolytes. Supplement as necessary. Monitor ins and outs. GI prophylaxis. DVT prophylaxis. Prognosis: Poor given patient's multiple co-morbidities. Condition: Critical Rest of plan per hospitalist and other consultants. A total of 35 minutes of critical care time was spent reviewing the patient record, examining the patient, making a diagnostic and therapeutic plan, discussing this plan with the medical personnel, following up on diagnostic studies and following the patient for clinical stability excluding any and all procedures. At least 50% of this time was spent in direct, [id number]-sddw contact. Thank you, Dr. Strickland, for allowing me to participate in this patient's care. Further recommendations will depend on the patient's clinical course. Please do not hesitate to contact me if you have any questions or concerns. This medical document was created using an electronic medical record system with [employer] dictation system. Although these documentations are being carefully reviewed, there may still be some phonetic and typographical changes. The errors are purely typographical, due to imperfection on the software program, and do not reflect any compromise in the patient's medical care. Dietary Evaluation Review Recommendations by RD: Protein Supplementation Comments: 1) Increase TF rate from 30 mL/hr to 35 mL/hr. Initiate Pro-Stat @ 30 mL bid. Goal rate (including Pro-Stat) will provide 1208 kcals, 77g Pro, and 1178 mL free H2O (including flushes) per 24 hrs. Goal rate will meet ~ 100% estimated daily energy needs and ~94% estimated daily protein needs 2) Initiate vitamin C @ 500 mg and zinc sulfate @ 220 mg qd for 7 days 3) Advance to cardiac diet when medically feasible, pending OFFSET LABEL REWINDER approval 4) F/u with cardiology and pulmonology 5) Continue to monitor I&O, labs, and skin integrity Expected Outcomes/Goals: 1) appetite and labs to improve 2) diet to advance 3) f/u in 2-3 Interpretation of weight loss: up to 20% in 1 year Plan discussed with: Other (KIKO Joy) Critical Care Time(min): 35 EDITH ANSARI MD Aug 16, 2024 20:13
[2024-08-16] MEDS: Jevity 1.2 Cal/Fiber 1 Liter GT SCH (22:24)
[2024-08-17] VITALS (90 sets, daily range): BP systolic 93–193; BP diastolic 53–130; PULSE 58–129; RESP 10–26; TEMP 97–98.3; O2SAT 91–99
[2024-08-17 05:28] LABS: Basophils # (auto) 0 10 ^3/uL (0-0.2); Eosinophils # (auto) 0 10 ^3/uL (0-0.8); Hematocrit 38.5 % (36.0-46.0); Hemoglobin 12.5 g/dL (12.2-16.2); Lymphocytes # (auto) 0.7 10 ^3/uL (0.4-5.4); Lymphocytes % (auto) 5.8 % (10.0-50.0); Mean Corpuscular Hemoglobin 27.6 pg (28.0-32.0); Mean Corpuscular Hgb Conc. 32.4 g/dL (32.0-36.0); Mean Corpuscular Volume 85.2 fL (80.0-100.0); Monocytes # (auto) 0.5 10 ^3/uL (0-1.3); Monocytes % (auto) 3.8 % (0.0-12.0); Neutrophils # (auto) 11.6 10 ^3/uL (1.6-8.6); Neutrophils % (auto) 90.4 % (37.0-80.0); Platelet Count (auto) 242 10^3/uL (140-450); Red Blood Cells 4.52 10^6/uL (4.0-5.20); Red Cell Distribution Width 15.1 % (11.8-14.3); White Blood Cell 12.9 10^3/uL (4.4-10.8)
[2024-08-17 05:45] LABS: Alkaline Phosphatase 96 U/L (46-116); Anion Gap 10 (5-15); BUN/Creatinine Ratio 30.8 (10.0-20.0); Bilirubin, Total 1.2 mg/dL (0.2-1.0); Calcium 9.7 mg/dL (8.7-10.4); Chloride 99 mmol/L (98-107); Potassium 3.8 mmol/L (3.5-5.1); Sodium 140 mmol/L (136-145); Total Protein 6.7 g/dL (5.7-8.2)
[2024-08-17 05:50] LABS: Alanine Aminotransferase 70 U/L (7-40); Aspartate Aminotransferase 49 U/L (13-40); Blood Urea Nitrogen 24 mg/dL (9-23); Carbon Dioxide 31 mmol/L (20-31); Glucose 163 mg/dL (74-106)
[2024-08-17 07:18] LABS: Base Excess 2.5 mmol/L (-2.0-3.0)
[2024-08-17] MEDS ORDERED: METOPROLOL SUCCINATE XL 50 MG TAB PO SCH (13:00)
--- NOTE | 2024-08-17 13:49 | DVHPN2 ---
Subjective still no mental status, tachy off sedation, pupil more sluggish compared to yest, repeat CTH. discusse eduardo son bedside if her mental status not improcing might have to aim for trach critical care time 50 minutes Reviewed: Care Plan, H&P, Labs, Medications, Previous Orders, Radiology Changes from previous H/P or p: No Changes Eyes: No Pain, No Vision change, No Conjunctivae inflammation, No Eyelid inflammation, No Other, No Redness ENT: No Ear pain, No Ear discharge, No Nose pain, No Nose discharge, No Nose congestion, No Mouth pain, No Mouth swelling, No Throat pain, No Throat swelling, No Other Cardiovascular: No Chest Pain, No Palpitations, No Orthopnea, No Paroxysmal Noc. Dyspnea, No Edema, No Lt Headedness, No Other Respiratory: Cough; No Dry; Shortness of breath, SOB with excertion, Wheezing; No Hemoptysis, No Pleuritic Pain, No Sputum, No Other Gastrointestinal: No Nausea, No Vomiting, No Abdominal Pain, No Diarrhea, No Constipation, No Melena, No Hematochezia, No Other Genitourinary: No Dysuria, No Frequency, No Incontinence, No Hematuria, No Retention, No Other Musculoskeletal: No other, No neck pain, No shoulder pain, No arm pain, No back pain, No hand pain, No leg pain, No foot pain Skin: No Rash, No Lesions, No Jaundice, No Bruising, No Other Objective Vitals Vital Signs Date Time Temp Pulse Resp B/P (MAP) Pulse Ox O2 Delivery O2 Flow Rate FiO2 08/17/24 13:20 119 19 175/110 96 08/17/24 12:02 30 08/17/24 12:00 Mechanical Ventilator+ 08/17/24 12:00 98.3 98.3 Intake/Output Intake and Output 08/17/24 07:00 Intake Total 1671.980 ml Output Total 1550 ml Balance 121.980 ml Intake Oral 850 ml IV Total 721.980 ml Tube Feeding 100 ml Output Urine Total 1550 ml Medications Current Medications Medications Dose Ordered Sig/Kristen Route Start Time Stop Time Status Last Admin Dose Admin Sodium Chloride 10 ml Q8HR IV 08/11/24 14:00 08/17/24 07:53 10 ML Ondansetron HCl 4 mg Q4HP PRN IV 08/11/24 13:00 Docusate Sodium 100 mg BIDPRN PRN PO 08/11/24 13:00 Acetaminophen 650 mg Q6HP PRN PO 08/11/24 13:00 Albuterol 2.5 mg Q6HWA NEB 08/11/24 18:00 08/17/24 12:01 2.5 MG Ipratropium [place] 0.5 mg Q6HWA NEB 08/11/24 18:00 08/17/24 12:01 0.5 MG Latanoprost 1 drop QPM EACHEYE 08/11/24 18:00 08/16/24 16:33 1 DROP Patient Own Medication 1 drop BID EACHEYE 08/11/24 22:00 08/17/24 07:52 1 DROP Albuterol 2.5 mg Q2HPRN PRN NEB 08/11/24 20:45 Ipratropium [place] 0.5 mg Q2HPRN PRN NEB 08/11/24 20:45 Propofol 100 ml @ 2.091 mls/ hr Q24H IV 08/12/24 13:45 Midazolam HCl 50 ml @ 1 mls/hr Q24H IV 08/12/24 13:45 08/14/24 01:18 4 MLS/HR Fentanyl Citrate 250 ml @ 2.5 mls/hr Q24H IV 08/12/24 13:45 08/15/24 19:20 2.5 MLS/HR Pantoprazole Sodium 40 mg DAILY IV 08/13/24 10:00 08/17/24 07:52 40 MG Piperacillin Sod/ Tazobactam Sod 100 ml @ 25 mls/hr Q8HR IV 08/12/24 23:30 08/17/24 06:03 25 MLS/HR Enoxaparin Sodium 40 mg DAILY SC 08/13/24 10:00 08/17/24 07:52 40 MG Vancomycin HCl 0 ml @ 0 mls/hr UD IV 08/13/24 15:30 Enteral Nutritional Formula 1,000 ml 30ML/HR GT 08/13/24 15:30 08/16/24 22:24 1,000 ML Vancomycin HCl 100 ml @ 100 mls/hr Q24H IV 08/14/24 17:00 08/16/24 16:33 100 MLS/HR Purified Water 200 ml Q6HR GT 08/14/24 12:00 08/17/24 11:13 200 ML Methylprednisolone Sodium Succinate 40 mg Q12HR IV 08/14/24 22:00 08/17/24 07:52 40 MG Sildenafil Citrate 20 mg TID@08,14,20 PO 08/14/24 14:00 08/17/24 07:52 20 MG Fluconazole 100 ml @ 100 mls/hr DAILY IV 08/16/24 10:00 08/17/24 07:52 100 MLS/HR Hydralazine HCl 10 mg Q6HP PRN IV 08/15/24 15:30 08/17/24 06:32 10 MG Dexmedetomidine HCl 400 mcg/ Dextrose 100 ml @ 3.655 mls/ hr Q24H IV 08/15/24 17:30 08/17/24 09:01 9.138 MLS/HR Metoprolol Succinate 25 mg BID PO 08/17/24 22:00 Laboratory Results Laboratory Tests 08/17/24 04:40 Chemistry Test 08/17/24 04:40 Albumin 4.0 g/dL (3.2-4.8) Calcium Level 9.7 mg/dL (8.7-10.4) Total Protein 6.7 g/dL (5.7-8.2) LFT Test 08/17/24 04:40 Alanine Aminotransferase (ALT) 70 U/L (7-40) H Alkaline Phosphatase 96 U/L (46-116) Aspartate Amino Transferase (AST) 49 U/L (13-40) H Total Bilirubin 1.2 mg/dL (0.2-1.0) H Urinalysis Test 08/14/24 04:30 Urine Color Colorless (Yellow) Urine Clarity Ex.turbid (Clear) Urine pH 5.5 (5.0-9.0) Urine Specific [place] 1.016 (1.001-1.035) Urine Protein Trace (Negative) H Urine Ketones Negative (Negative) Urine Blood 3+ /uL (Negative) H Urine Nitrite Negative (Negative) Urine Bilirubin Negative (Negative) Urine Urobilinogen Normal mg/dL (Negative) Urine Leukocyte Esterase 1+ /uL (Negative) Urine RBC 494 /hpf (0 - 4) Urine Microscopic WBC 20 /HPF (0-5) H Urine Squamous Epithelial Cells Few /hpf (<5) Urine Uric Acid Crystals Many /hpf (None Seen) Urine Bacteria Few /hpf (None Seen) H Urine Hyaline Casts Few /lpf (0 - 2) Urine Mucus Few (None Seen) Urine Yeast (Budding) Many /hpf (None Seen) Urine Glucose Normal mg/dL (Normal) Blood Gas Results Test 08/17/24 07:13 Arterial Blood pH 7.471 (7.350-7.450) FiO2 % 30.0 Microbiology Microbiology Date/Time Source Procedure Growth Status 08/13/24 04:40 Blood Blood Culture - Preliminary NO GROWTH AFTER 72 HOURS OF INCUBATION. Resulted 08/13/24 03:00 Urine - [place] Urine Culture - Final Complete 08/13/24 02:49 Sputum Gram Stain - Final Complete 08/13/24 02:49 Sputum Respiratory Culture - Final Complete Assessment/Plan Assessment/Plan On 08/15/2024 failed CPAP trial as patient was not awake or alert, off sedation or pressor Plan is to do CPAP trial at a.m. No sedative please Neurology # metabolic encephalopathy/toxic encephalopathy/hypoxic encephalopathy -status post cardiac arrest, status post CPR -patient on mechanical ventilation, on sedation -CT head very mild cortical atrophy -MRI of the brain- No acute intracranial pathology -continue current management daily SAT [facility] Cardiovascular -Acute diastolic heart failure -echo 2D on 08/13/2024-LVEF 60%, concentric LVH with right ventricle and right atrial enlargement. -CAD -pulmonary hypertension -history of hypertension -hyperlipidemia -continue nebulization Respiratory -acute respiratory failure -acute exacerbation of COPD -pulmonary hypertension -failed CPAP trial on 08/15/2024 -Blood culture no growth so far -Urine culture less [place] 34148 colony-forming units per mL yeast -Respiratory Culture preliminary no growth -continue nebulization -methylprednisolone 40 mg IV q.12 hours -sildenafil 20 mg t.i.d. doing well on CPAP, no mental status Gastrointestinal -transaminitis -monitor CMP Genitourinary/renal -HECTOR likely due to VMN -right kidney cyst in the lower pole -avoid dehydration and nephrotoxic drugs Infectious disease -? Septic shock -acute pneumonia Gram-positive versus Gram-negative -continue Zosyn and vancomycin as prescribed Hemato oncology -anemia of chronic disease -monitor CBC Endocrinology/ metabolic disorder -obesity Musculoskeletal -rheumatoid arthritis -gout -continue current management Skin or elementary -wound care consult in place Plan discussed with: Son My Orders Orders - EVANGELIST BOUDREAUX MD Procedure Category Date Status Time Electrocardigram EKG 08/17/24 Logged 07:[address] 08/17/24 Logged 12:17 Metoprolol Xl PHA 08/17/24 In Process Succinate (Toprol Xl) 22:00 Date of Service: Aug 17, 2024 Billing Provider: EVANGELIST BOUDREAUX MD Common Visit Codes: [id number] CARE 30-74 MIN EVANGELIST BOUDREAUX MD Aug 17, 2024 13:49
[2024-08-17] MEDS: METOPROLOL SUCCINATE XL 50 MG TAB PO ONE (14:05)
--- NOTE | 2024-08-17 15:01 | DVH ---
CT HEAD WITHOUT CONTRAST INDICATION: MENTAL STATUS EXAM DATE: 08/17/2024 02:31 PM COMPARISON: CT HEAD WITHOUT CONTRAST on DOS: 08/12/24 RADIATION DOSE: CTDIvol: 58.21 mGy, DLP: 1030.68 mGy*cm PROCEDURE: CT scans of the head were obtained from the vertex to the skull base. Sagittal and coronal reconstructions were provided. All CT scans at this medical facility are performed using dose modulation techniques as appropriate t o a performed exam including the following: Automated exposure control was utilized; adjustment of th e MA and/or KV according to patient size; and use of iterative reconstruction technique. FINDINGS: There is sulcal and ventricular prominence. The brainshows normal morphology and wolf-whi te matter differentiation, without intracranial hemorrhage, extra-axial fluid collection, mass effect or acute large vessel infarct. The ventricles are normal in size. The basal cisterns are patent. The skull and visible facial bones are intact. The paranasal sinuses, mastoid air cells and middle ear c avities are well-aerated. The soft tissues of the scalp are unremarkable. IMPRESSION: No acute intracranial abnormality.
[2024-08-17] MEDS ORDERED: VANCOMYCIN 750mg/150ml 150 ML IV SCH (17:30)
[2024-08-17] MEDS: METOPROLOL SUCCINATE XL 50 MG TAB PO SCH (22:11)
--- NOTE | 2024-08-17 23:04 | DVHPN2 ---
Progress Note - Dictate Date Seen: Aug 17, 2024 Medical Necessity Reason Pt with a Central, PICC or Fol: Yes The following are medically ne: Central Line, Vigil Catheter Reason for vigil catheter: Strict I&O Subjective Patient seen and examined at bedside. Intubated on mechanical ventilator. Overnight events reviewed. vital signs Vital Sign Date Time Temp Pulse Resp B/P (MAP) Pulse Ox O2 Delivery O2 Flow Rate FiO2 08/17/24 22:30 92 17 156/78 (104) 95 08/17/24 22:24 30 08/17/24 22:00 Mechanical Ventilator+ 08/17/24 20:00 97.8 97.8 Total Intake and Output 08/16/24 08/16/24 08/17/24 15:00 23:00 07:00 Intake Total 335.309 ml 748.48 ml 588.191 ml Output Total 950 ml 600 ml Balance 335.309 ml -201.52 ml -11.809 ml medications Current Medications Medications Dose Ordered Sig/Kristen Route Start Time Stop Time Status Last Admin Dose Admin Sodium Chloride 10 ml Q8HR IV 08/11/24 14:00 08/17/24 22:09 10 ML Ondansetron HCl 4 mg Q4HP PRN IV 08/11/24 13:00 Docusate Sodium 100 mg BIDPRN PRN PO 08/11/24 13:00 Acetaminophen 650 mg Q6HP PRN PO 08/11/24 13:00 Albuterol 2.5 mg Q6HWA NEB 08/11/24 18:00 08/17/24 18:15 2.5 MG Ipratropium [place] 0.5 mg Q6HWA NEB 08/11/24 18:00 08/17/24 18:15 0.5 MG Latanoprost 1 drop QPM EACHEYE 08/11/24 18:00 08/17/24 17:34 1 DROP Patient Own Medication 1 drop BID EACHEYE 08/11/24 22:00 08/17/24 22:09 1 DROP Albuterol 2.5 mg Q2HPRN PRN NEB 08/11/24 20:45 Ipratropium [place] 0.5 mg Q2HPRN PRN NEB 08/11/24 20:45 Propofol 100 ml @ 2.091 mls/ hr Q24H IV 08/12/24 13:45 Midazolam HCl 50 ml @ 1 mls/hr Q24H IV 08/12/24 13:45 08/14/24 01:18 4 MLS/HR Fentanyl Citrate 250 ml @ 2.5 mls/hr Q24H IV 08/12/24 13:45 08/15/24 19:20 2.5 MLS/HR Pantoprazole Sodium 40 mg DAILY IV 08/13/24 10:00 08/17/24 07:52 40 MG Piperacillin Sod/ Tazobactam Sod 100 ml @ 25 mls/hr Q8HR IV 08/12/24 23:30 08/17/24 22:13 25 MLS/HR Enoxaparin Sodium 40 mg DAILY SC 08/13/24 10:00 08/17/24 07:52 40 MG Vancomycin HCl 0 ml @ 0 mls/hr UD IV 08/13/24 15:30 Enteral Nutritional Formula 1,000 ml 30ML/HR GT 08/13/24 15:30 08/16/24 22:24 1,000 ML Purified Water 200 ml Q6HR GT 08/14/24 12:00 08/17/24 17:34 200 ML Methylprednisolone Sodium Succinate 40 mg Q12HR IV 08/14/24 22:00 08/17/24 22:12 40 MG Sildenafil Citrate 20 mg TID@08,14,20 PO 08/14/24 14:00 08/17/24 19:34 20 MG Fluconazole 100 ml @ 100 mls/hr DAILY IV 08/16/24 10:00 08/17/24 07:52 100 MLS/HR Hydralazine HCl 10 mg Q6HP PRN IV 08/15/24 15:30 08/17/24 18:23 10 MG Dexmedetomidine HCl 400 mcg/ Dextrose 100 ml @ 3.655 mls/ hr Q24H IV 08/15/24 17:30 08/17/24 09:01 9.138 MLS/HR Metoprolol Succinate 25 mg BID PO 08/17/24 22:00 08/17/24 22:11 25 MG Vancomycin HCl 150 ml @ 150 mls/hr Q12H IV 08/18/24 05:00 objective Gen.: Patient lying in bed in medical ICU. Intubated on mechanical ventilator. Head: Normocephalic, atraumatic. Eyes: PERRLA. Ears: Normal external anatomy. Throat: Endotracheal tube and orogastric tube in place. Neck: Supple, trachea midline. Chest: Transmitted breath sounds bilaterally. Decreased air entry bilaterally. No wheezing. Bibasilar crackles. Cardiovascular: Positive S1, positive S2. Regular rate and rhythm. Abdomen: Positive bowel sounds in all 4 quadrants. Soft, nontender, nondistended. : Vigil in place. Normal external genitalia. Rectal: Deferred. Skin: Warm, dry. Intact. Extremities: 2+ radial pulses bilaterally. No lower extremity edema. Neuro: Off sedation laboratory and microbiology Laboratory Tests 08/17/24 04:40 Test 08/17/24 04:40 Range/Units Serum Glucose 163 H 74-106 mg/dL Assessment/Plan Impression: Acute hypoxic respiratory failure Acute hypercarbic respiratory failure On mechanical ventilator Acute metabolic encephalopathy Shock, septic vs cardiogenic Bilateral pneumonia Obesity BMI 36.1 Mucous plugging Atelectasis Pulmonary hypertension, RVSP 51 mmHg (03/2024) COPD, Moderate obstructive ventilatory defect Reduced DLCO Events: Remains on vent support AC mode; RR 18, VT 400, PEEP 5, FiO2 30% Off sedation On Precedex drip Fentanyl drip for analgesia Continue antibiotics ABG reviewed, notable for alkalemia Placed on CPAP - patient tolerated CT head obtained today, results pending Labs and imaging reviewed. Rest of plan as noted below. Plan: s/p cardiac arrest. s/p intubation on mechanical ventilator. AC mode; RR 18, VT 400, PEEP 5, FiO2 30% Titrate FIO2 to keep O2 saturation above 90%. VAP bundle. Daily ABG and CXR while intubated Off sedation S/p therapeutic bronchoscopy on 08/12/24, removed mucous plugging from L6-L10 and R1-R3. S/p central line and arterial line placement See separate procedure notes for details of procedures. Pressors if necessary for hemodynamic support Titrate to keep mean arterial pressure greater than 65 mmHg Continue antibiotics. IV steroids Monitor renal function Monitor electrolytes. Supplement as necessary. Monitor ins and outs. GI prophylaxis. DVT prophylaxis. Prognosis: Poor given patient's multiple co-morbidities. Condition: Critical Rest of plan per hospitalist and other consultants. A total of 35 minutes of critical care time was spent reviewing the patient record, examining the patient, making a diagnostic and therapeutic plan, discussing this plan with the medical personnel, following up on diagnostic studies and following the patient for clinical stability excluding any and all procedures. At least 50% of this time was spent in direct, [id number] contact. Thank you, Dr. Strickland, for allowing me to participate in this patient's care. Further recommendations will depend on the patient's clinical course. Please do not hesitate to contact me if you have any questions or concerns. This medical document was created using an electronic medical record system with [employer] dictation system. Although these documentations are being carefully reviewed, there may still be some phonetic and typographical changes. The errors are purely typographical, due to imperfection on the software program, and do not reflect any compromise in the patient's medical care. Dietary Evaluation Review Recommendations by RD: Protein Supplementation Comments: 1) Increase TF rate from 30 mL/hr to 35 mL/hr. Initiate Pro-Stat @ 30 mL bid. Goal rate (including Pro-Stat) will provide 1208 kcals, 77g Pro, and 1178 mL free H2O (including flushes) per 24 hrs. Goal rate will meet ~ 100% estimated daily energy needs and ~94% estimated daily protein needs 2) Initiate vitamin C @ 500 mg and zinc sulfate @ 220 mg qd for 7 days 3) Advance to cardiac diet when medically feasible, pending [employer] approval 4) F/u with cardiology and pulmonology 5) Continue to monitor I&O, labs, and skin integrity Expected Outcomes/Goals: 1) appetite and labs to improve 2) diet to advance 3) f/u in 2-3 Interpretation of weight loss: up to 20% in 1 year Plan discussed with: Other (RN Rogerio) Critical Care Time(min): 35 EDITH ANSARI MD Aug 17, 2024 23:04
--- NOTE | 2024-08-17 23:40 | DVHPN2 ---
Progress Note - Dictate Date Seen: Aug 17, 2024 Medical Necessity Reason Pt with a Central, PICC or Fol: Yes The following are medically ne: Central Line, Vigil Catheter Reason for vigil catheter: Strict I&O Subjective Ms. Recinos is a 73 years old female with a history of hypertension, dyslipidemia, coronary artery disease, heart attack, congestive heart failure, asthma, COPD on home oxygen, gout, anemia, the patient was admitted found her correction on 08/11/2024 with a chief company of shortness of breath I have seen and examined the patient, I have talked to her nurse She is intubated, sedated, eyes are open, but he is nonresponsive to verbal stimuli Fentanyl 25 mcg/hour, preset 0.4 mcg ABG, 08/12/2024: Respiratory acidosis, hypoxia WBC/HB/PLT/MCV, 08/12/2024: 7.2/11.9/302/85.7 CMP, 08/12/2024: Unremarkable HGB A1c, 04/11/2024: 500 TG/HDL/LDL/HDL, 05/2023: 101/6/186/45 Vitamin B12, 03/2024: 1161 TSH, 03/2024: 1.39 EEG 08/13/2024: Remarkably abnormal Extremity venous study, 08/13/2024: No evidence of right or left femoropopliteal venous thrombosis. Chest x-ray, 08/12/2024: Left central venous catheter overlies the left upper chest and may be not position. Clinical correlation advised. Endotracheal tube in satisfactory position. Left central venous catheter in uncertain position Chest x-ray, 08/15/24: Hazy bilateral opacities are unchanged CT head, 08/12/2024: Very mild cortical atrophy otherwise unremarkable study CT head, 08/17/2024: No acute intracranial abnormality CTA chest, 08/13/2024: Grossly enlarged pulmonary arteries underlying pulmonary arterial hypertension is suspected no pulmonary embolus There are bilateral infiltrates in the lung bases MRI brain, 07/17/24: No acute intracranial pathology vital signs Vital Sign Date Time Temp Pulse Resp B/P (MAP) Pulse Ox O2 Delivery O2 Flow Rate FiO2 08/17/24 22:30 92 17 156/78 (104) 95 08/17/24 22:24 30 08/17/24 22:00 Mechanical Ventilator+ 08/17/24 20:00 97.8 97.8 Total Intake and Output 08/16/24 08/16/24 08/17/24 15:00 23:00 07:00 Intake Total 335.309 ml 748.48 ml 588.191 ml Output Total 950 ml 600 ml Balance 335.309 ml -201.52 ml -11.809 ml medications Current Medications Medications Dose Ordered Sig/Kristen Route Start Time Stop Time Status Last Admin Dose Admin Sodium Chloride 10 ml Q8HR IV 08/11/24 14:00 08/17/24 22:09 10 ML Ondansetron HCl 4 mg Q4HP PRN IV 08/11/24 13:00 Docusate Sodium 100 mg BIDPRN PRN PO 08/11/24 13:00 Acetaminophen 650 mg Q6HP PRN PO 08/11/24 13:00 Albuterol 2.5 mg Q6HWA NEB 08/11/24 18:00 08/17/24 18:15 2.5 MG Ipratropium [place] 0.5 mg Q6HWA NEB 08/11/24 18:00 08/17/24 18:15 0.5 MG Latanoprost 1 drop QPM EACHEYE 08/11/24 18:00 08/17/24 17:34 1 DROP Patient Own Medication 1 drop BID EACHEYE 08/11/24 22:00 08/17/24 22:09 1 DROP Albuterol 2.5 mg Q2HPRN PRN NEB 08/11/24 20:45 Ipratropium [place] 0.5 mg Q2HPRN PRN NEB 08/11/24 20:45 Propofol 100 ml @ 2.091 mls/ hr Q24H IV 08/12/24 13:45 Midazolam HCl 50 ml @ 1 mls/hr Q24H IV 08/12/24 13:45 08/14/24 01:18 4 MLS/HR Fentanyl Citrate 250 ml @ 2.5 mls/hr Q24H IV 08/12/24 13:45 08/15/24 19:20 2.5 MLS/HR Pantoprazole Sodium 40 mg DAILY IV 08/13/24 10:00 08/17/24 07:52 40 MG Piperacillin Sod/ Tazobactam Sod 100 ml @ 25 mls/hr Q8HR IV 08/12/24 23:30 08/17/24 22:13 25 MLS/HR Enoxaparin Sodium 40 mg DAILY SC 08/13/24 10:00 08/17/24 07:52 40 MG Vancomycin HCl 0 ml @ 0 mls/hr UD IV 08/13/24 15:30 Enteral Nutritional Formula 1,000 ml 30ML/HR GT 08/13/24 15:30 08/16/24 22:24 1,000 ML Purified Water 200 ml Q6HR GT 08/14/24 12:00 08/17/24 17:34 200 ML Methylprednisolone Sodium Succinate 40 mg Q12HR IV 08/14/24 22:00 08/17/24 22:12 40 MG Sildenafil Citrate 20 mg TID@08,14,20 PO 08/14/24 14:00 08/17/24 19:34 20 MG Fluconazole 100 ml @ 100 mls/hr DAILY IV 08/16/24 10:00 08/17/24 07:52 100 MLS/HR Hydralazine HCl 10 mg Q6HP PRN IV 08/15/24 15:30 08/17/24 18:23 10 MG Dexmedetomidine HCl 400 mcg/ Dextrose 100 ml @ 3.655 mls/ hr Q24H IV 08/15/24 17:30 08/17/24 09:01 9.138 MLS/HR Metoprolol Succinate 25 mg BID PO 08/17/24 22:00 08/17/24 22:11 25 MG Vancomycin HCl 150 ml @ 150 mls/hr Q12H IV 08/18/24 05:00 objective The patient is well-nourished and well-developed with no distress. The patient is intubated MENTAL STATUS: Subjective, CRANIAL NERVES: Pupils are equal, round and reactive. There are corneal reflexes and doll's eyes phenomenon. No signs of facial weakness. There are gagging or coughing reflexes SENSATION: Responses to pain stimuli. MOTOR: Normal tone in the upper and lower extremity. Normal muscle bulk. No fasciculations. No spontaneous movement. REFLEXES: Deep tendon reflexes are symmetrical. No pathological reflexes. CEREBELLAR/COORDINATION: Deferred GAIT/STATION: deferred. laboratory and microbiology Laboratory Tests 08/17/24 04:40 Test 08/17/24 04:40 Range/Units Serum Glucose 163 H 74-106 mg/dL Problem List Coma Hypoxic encephalopathy Metabolic encephalopathy Toxic encephalopathy Cardiopulmonary arrest Respiratory failure Hypoxia Status post CPR Sepsis Pneumonia Acidosis Seizure-like activity to rule out seizure attack Reported anisocoria with right-sided slightly weaker on 08/14/2024 Assessment/Plan Monitoring Supportive treatment ICU care Follow-up labs Respiratory support/vent management Stabilize vitals Antibiotics Oxygen DVT prophylaxis GI prophylaxis More recommendation per clinical course This medical document was created using an electronic medical record system with [employer] dictation system. Although this document has been carefully reviewed, there may still be some phonetic and typographical errors. These areas are purely typographical due to imperfections of the software programs, and do not reflect any compromise in the patient's medical care. Prognosis Guarded Dietary Evaluation Review Recommendations by RD: Protein Supplementation Comments: 1) Increase TF rate from 30 mL/hr to 35 mL/hr. Initiate Pro-Stat @ 30 mL bid. Goal rate (including Pro-Stat) will provide 1208 kcals, 77g Pro, and 1178 mL free H2O (including flushes) per 24 hrs. Goal rate will meet ~ 100% estimated daily energy needs and ~94% estimated daily protein needs 2) Initiate vitamin C @ 500 mg and zinc sulfate @ 220 mg qd for 7 days 3) Advance to cardiac diet when medically feasible, pending [employer] approval 4) F/u with cardiology and pulmonology 5) Continue to monitor I&O, labs, and skin integrity Expected Outcomes/Goals: 1) appetite and labs to improve 2) diet to advance 3) f/u in 2-3 Interpretation of weight loss: up to 20% in 1 year Plan discussed with: PATRIZIA Gottlieb MD Aug 17, 2024 23:40
[2024-08-18] VITALS (110 sets, daily range): BP systolic 93–216; BP diastolic 50–127; PULSE 59–122; RESP 15–27; TEMP 97.9–99; O2SAT 91–98
[2024-08-18] MEDS: VANCOMYCIN 750mg/150ml 150 ML IV SCH (04:53)
--- NOTE | 2024-08-18 06:57 | DVHPNRES ---
Progress Note Date Seen: Aug 18, 2024 Resident Creating Document: CALI WITT Medical Necessity Reason Pt with a Central, PICC or Fol: Yes The following are medically ne: Central Line, Vigil Catheter Reason for vigil catheter: Strict I&O Subjective Review of Systems Patient is 73 years old female with past medical history of asthma, COPD, on home oxygen NCO2 2L/mnt, CAD-NH, CHF, pulmonary hypertension, hypertension, hyperlipidemia, rheumatoid arthritis, gout, anemia came to the hospital with shortness of breaths. Information gathered from reviewing the chart and talking to the family. Having chest pain and shortness of breaths for couple of days before she came into the hospital. Patient was admitted the hospital 1 month before with the abdominal pain, pneumonia. Following discharge patient was sent to [facility] for rehabilitation. Significant initial lab workup-troponin I with a normal limit, BNP elevated 273. CXR-Patchy bibasilar airspace opacities. Cardiomegaly. CT head-08/12/2024 -Very mild cortical atrophy otherwise unremarkable study. CT angio on 08/13/2024- grossly enlarged the main pulmonary artery measures 5.3 cm in caliber, right pulmonary artery measures 3.13 cm in caliber in the left pulmonary artery measures 2.67 cm in caliber. Heart is enlarged. There is a posterior consolidated right lower lobe evidence for bilateral interstitial infiltrates and possibly edema. No evidence for pulmonary embolus the ascending aorta measures 3.77 cm. Also bilateral small consolidates in the posterior right and left lower lobes. Grossly enlarged pulmonary arteries underlying pulmonary arterial hypertension is suspected no pulmonary embolus. There are bilateral infiltrates in the lung bases. One 08/13/2024 Doppler study of the lower extremity negative for DVT. ECHO 2D on 08/14/24 revealed-LVEF 60%, concentric left ventricular hypertrophy with right ventricle and right atrial enlargement. On 08/14/2024- MRI of the brain-no acute abnormality noted. On 08/18/2023 CT head- No acute intracranial abnormality.. Patient had several visits over the year in this hospital. In July 17, 2024, April 16, 2024, June 16, 2023, February 2023, August 14, 2022, September 2012, August 2012, August 2012 Code assist was called on 08/12/2024-patient was found to have unresponsive, stiffness of the bilateral upper and lower extremity, bradycardia, agonal respiration. Code assist was converted to code blue were severe was initiated by bedside RN. Status post CPR. ROSC 20 minutes Patient was intubated on 08/12/2024. Left internal jugular central line was placed on 08/12/2024 Bronchoscopy was done on 08/12/2024-impression- Left lower lobe atelectasis due to mucous plugging. Mucous plugging from L6-L10 and R1-R3 Echo 2D- 04/12/2024 revealed an LVEF of 50% with moderate LVH, RV and left atrium enlargement. The patient also underwent a recent right and left cardiac catheterization on 12/2023 revealing no significant coronary artery disease, elevated left ventricular end-diastolic pressures indicating diastolic heart failure, and pulmonary hypertension deemed to be multifactorial primarily secondary to diastolic heart failure in addition to chronic lung processes for which she was initiated on Sildenafil therapy on 04/2024. Patient had nuclear stress test in -03/19/2023 negative for ischemia, LVEF 59% PMH-heart failure, COPD, asthma, pulmonary hypertension, CAD, NH, hypertension, hyperlipidemia, diabetes mellitus type 2, COPD, asthma, gout, rheumatoid arthritis, anemia PSH- tubal ligation, right foot surgery, tonsillectomy, bilateral total knee replacement, right eye surgery, Allergy- , levofloxacin, ceftriaxone Personal History/ Social History- No history of smoking, alcohol and other drug abuse Failed CPAP trial on 0 08/15/24, 08/16/2024, 08/18/24, Patient was not fully awake. On 08/18/2023 CT head- No acute intracranial abnormality. Patient was seen by neurologist, recommendation reviewed and appreciated Patient was seen today for clinical evaluation. Labs and chart reviewed. Overnight patient's BP ranging from 93-175/53-107, -pulse 61-117, temperature 97.0-98.3, Restarted home medication Coreg 6.25 mg b.i.d. I/O- intake 1846, output 1300 mL, positive balance 464 Lab workup ABG on 11/18/2024-PH 7.46, PCO2 43.3, PO2 77.9, HCO3 30.2, WBC 7.1> 7.2> 14.1> 11.4> 9.3> 12.1>? 12.9 >12.9> 15.5 Hemoglobin 13.1> 11.9> 10.8> 11.0> 10.5> 11.9> 12.5> 13.4 platelet 276>> 302 264> 252> 229> 217> 228> 242> 295 Sodium 137> 142> 147> 146> 148> 148> 143> 148>> 143 >140> 139 Potassium> 3.9> 4.0> 3.7> 3.6> 3.7> 3.7> 3.5> 3.8> 3.5> 3.8> 3.9 Serum creatinine 0.92> 0.87> 1.22> 1.21> 1.19> 0.98> 0.78> 0.81>0.88 BUN 18> 31> 26> 29> 26> 22> 24> 31 Serum> bilirubin 0.5> 0.6>0.5> 0.5 0.8> 1.2> AST> 20 88> 50> 37> 43> 49 ALT 17> 91> 69> 56> 58> 70 Blood culture no growth so far Urine culture <[id number] CFU Yeast Respiratory Culture preliminary no growth Patient on antibiotic Zosyn and vancomycin Provider spoke to patient's daughter Ms. Nieves Levy,-[phone], discussed patient's current medical condition, plan of care, answered her questions Objective vital signs Vital Sign Date Time Temp Pulse Resp B/P (MAP) Pulse Ox O2 Delivery O2 Flow Rate FiO2 08/18/24 06:45 68 18 110/61 (77) 94 08/18/24 06:07 30 08/18/24 06:00 Mechanical Ventilator+ 08/18/24 04:00 98.1 98.1 Total Intake and Output 08/17/24 08/17/24 08/18/24 15:00 23:00 07:00 Intake Total 302.723 ml 607.808 ml 818.67 ml Output Total 750 ml 550 ml Balance 302.723 ml -142.192 ml 268.67 ml medications Current Medications Medications Dose Ordered Sig/Kristen Route Start Time Stop Time Status Last Admin Dose Admin Sodium Chloride 10 ml Q8HR IV 08/11/24 14:00 08/18/24 05:43 10 ML Ondansetron HCl 4 mg Q4HP PRN IV 08/11/24 13:00 Docusate Sodium 100 mg BIDPRN PRN PO 08/11/24 13:00 Acetaminophen 650 mg Q6HP PRN PO 08/11/24 13:00 Albuterol 2.5 mg Q6HWA NEB 08/11/24 18:00 08/18/24 06:06 2.5 MG Ipratropium [place] 0.5 mg Q6HWA NEB 08/11/24 18:00 08/18/24 06:06 0.5 MG Latanoprost 1 drop QPM EACHEYE 08/11/24 18:00 08/17/24 17:34 1 DROP Patient Own Medication 1 drop BID EACHEYE 08/11/24 22:00 08/17/24 22:09 1 DROP Albuterol 2.5 mg Q2HPRN PRN NEB 08/11/24 20:45 Ipratropium [place] 0.5 mg Q2HPRN PRN NEB 08/11/24 20:45 Propofol 100 ml @ 2.091 mls/ hr Q24H IV 08/12/24 13:45 Midazolam HCl 50 ml @ 1 mls/hr Q24H IV 08/12/24 13:45 08/14/24 01:18 4 MLS/HR Fentanyl Citrate 250 ml @ 2.5 mls/hr Q24H IV 08/12/24 13:45 08/15/24 19:20 2.5 MLS/HR Pantoprazole Sodium 40 mg DAILY IV 08/13/24 10:00 08/17/24 07:52 40 MG Piperacillin Sod/ Tazobactam Sod 100 ml @ 25 mls/hr Q8HR IV 08/12/24 23:30 08/18/24 05:43 25 MLS/HR Enoxaparin Sodium 40 mg DAILY SC 08/13/24 10:00 08/17/24 07:52 40 MG Vancomycin HCl 0 ml @ 0 mls/hr UD IV 08/13/24 15:30 Enteral Nutritional Formula 1,000 ml 30ML/HR GT 08/13/24 15:30 08/16/24 22:24 1,000 ML Purified Water 200 ml Q6HR GT 08/14/24 12:00 08/18/24 05:43 200 ML Methylprednisolone Sodium Succinate 40 mg Q12HR IV 08/14/24 22:00 08/17/24 22:12 40 MG Sildenafil Citrate 20 mg TID@08,14,20 PO 08/14/24 14:00 08/17/24 19:34 20 MG Fluconazole 100 ml @ 100 mls/hr DAILY IV 08/16/24 10:00 08/17/24 07:52 100 MLS/HR Hydralazine HCl 10 mg Q6HP PRN IV 08/15/24 15:30 08/18/24 00:16 10 MG Dexmedetomidine HCl 400 mcg/ Dextrose 100 ml @ 3.655 mls/ hr Q24H IV 08/15/24 17:30 08/18/24 00:22 7.31 MLS/HR Metoprolol Succinate 25 mg BID PO 08/17/24 22:00 08/17/24 22:11 25 MG Vancomycin HCl 150 ml @ 150 mls/hr Q12H IV 08/18/24 05:00 08/18/24 04:53 150 MLS/HR Examination General examination- patient on mechanical ventilation, on sedation HEENT- PEERLA, no acute nasal discharge Cardiovascular- S1-S2 audible, rate and rhythm regular, no murmur Respiratory- bilateral lung crackles+, + wheezing Gastrointestinal-nontender, bowel sound+. Nondistended Musculoskeletal-swan neck deformity on bilateral hands+, edematous bilateral hands Lower extremity- mild pedal edema+ Neurological- Could not be assessed as patient is on ventilator and sedation Skin- no acute rash or purpura laboratory and microbiology Laboratory Tests 08/18/24 04:42 08/17/24 04:40 Test 08/17/24 04:40 Range/Units Serum Glucose 163 H 74-106 mg/dL Microbiology Date/Time Source Procedure Growth Status 08/13/24 04:40 Blood Blood Culture - Final NO GROWTH AFTER 5 DAYS OF INCUBATION. Complete 08/13/24 03:00 Urine - Vigil [place] Urine Culture - Final Complete 08/13/24 02:49 Sputum Gram Stain - Final Complete 08/13/24 02:49 Sputum Respiratory Culture - Final Complete Problem List/Assessment/Plan Problem List/Assessment/Plan Assessment and plan On 08/15/2024 failed CPAP trial as patient was not awake or alert, off sedation or pressor Plan is to do CPAP trial at a.m. No sedative please Neurology # metabolic encephalopathy/toxic encephalopathy/hypoxic encephalopathy -status post cardiac arrest, status post CPR -patient on mechanical ventilation, on sedation -CT head very mild cortical atrophy -MRI of the brain- No acute intracranial pathology -continue current management Cardiovascular -Acute diastolic heart failure -echo 2D on 08/13/2024-LVEF 60%, concentric LVH with right ventricle and right atrial enlargement. -CAD -pulmonary hypertension -history of hypertension -hyperlipidemia -continue nebulization -continue Coreg 6.25 mg b.i.d. Respiratory -acute hypoxic respiratory failure -acute exacerbation of COPD -pulmonary hypertension -failed CPAP trial on 08/18/2024 -Blood culture no growth so far -Urine culture less [place] 59056 colony-forming units per mL yeast -Respiratory Culture preliminary no growth -continue nebulization -methylprednisolone 40 mg IV q.12 hours -sildenafil 20 mg t.i.d. Gastrointestinal -transaminitis -monitor CMP Genitourinary/renal -HECTOR likely due to VMN -right kidney cyst in the lower pole -avoid dehydration and nephrotoxic drugs Infectious disease -? Septic shock -acute pneumonia Gram-positive versus Gram-negative -continue Zosyn and vancomycin as prescribed Hemato oncology -anemia of chronic disease -monitor CBC Endocrinology/ metabolic disorder -obesity Musculoskeletal -rheumatoid arthritis -gout -continue current management Skin or elementary -wound care consult in place Lines-left internal jugular central line and right radial artery line-08/12/2024 Drips- ETT Vigil's catheter Arterial line placed on 08/12/2024 Goals of care/advance care planning Code status ; discussed with >15 minutes PUD prophylaxis: Pantoprazole DVT prophylaxis: Lovenox Plan discussed with Dr. Hernandez, nursing staff, daughter Total time spent on patient evaluation, chart review, assessment and plan, total critical time spent including monitoring mechanical ventilation, CPAP trial, excluding procedure 63 minutes Plan discussed with: Daughter, Other (RN) Dietary Evaluation Review Recommendations by RD: Protein Supplementation Comments: 1) Increase TF rate from 30 mL/hr to 35 mL/hr. Initiate Pro-Stat @ 30 mL bid. Goal rate (including Pro-Stat) will provide 1208 kcals, 77g Pro, and 1178 mL free H2O (including flushes) per 24 hrs. Goal rate will meet ~ 100% estimated daily energy needs and ~94% estimated daily protein needs 2) Initiate vitamin C @ 500 mg and zinc sulfate @ 220 mg qd for 7 days 3) Advance to cardiac diet when medically feasible, pending PRESS TENDER STAR SIGNAL approval 4) F/u with cardiology and pulmonology 5) Continue to monitor I&O, labs, and skin integrity Expected Outcomes/Goals: 1) appetite and labs to improve 2) diet to advance 3) f/u in 2-3 Interpretation of weight loss: up to 20% in 1 year Date of Service: Aug 18, 2024 Billing Provider: ROSHAN HERNANDEZ MD Common Visit Codes: 47431-[id number] CARE 30-74 MIN CALI WITT RESIDENT Aug 18, 2024 06:57 ROSHAN HERNANDEZ MD Aug 19, 2024 15:06
[2024-08-18 07:28] LABS: Base Excess 5.8 mmol/L (-2.0-3.0)
[2024-08-18 07:38] LABS: Anion Gap 11 (5-15); Carbon Dioxide 31 mmol/L (20-31); Potassium 3.9 mmol/L (3.5-5.1); Sodium 139 mmol/L (136-145)
[2024-08-18 07:39] LABS: Calcium 9.8 mg/dL (8.7-10.4); Chloride 97 mmol/L (98-107)
[2024-08-18 07:43] LABS: Basophils # (auto) 0 10 ^3/uL (0-0.2); Basophils % (auto) 0.1 % (0.0-2.0); Eosinophils # (auto) 0 10 ^3/uL (0-0.8); Hematocrit 42.1 % (36.0-46.0); Hemoglobin 13.4 g/dL (12.2-16.2); Lymphocytes # (auto) 0.9 10 ^3/uL (0.4-5.4); Mean Corpuscular Hgb Conc. 31.8 g/dL (32.0-36.0); Mean Corpuscular Volume 84.8 fL (80.0-100.0); Monocytes # (auto) 0.6 10 ^3/uL (0-1.3); Monocytes % (auto) 4.3 % (0.0-12.0); Neutrophils # (auto) 13.4 10 ^3/uL (1.6-8.6); Neutrophils % (auto) 89.6 % (37.0-80.0); Platelet Count (auto) 295 10^3/uL (140-450); Red Blood Cells 4.96 10^6/uL (4.0-5.20); Red Cell Distribution Width 15.3 % (11.8-14.3)
[2024-08-18 07:44] LABS: BUN/Creatinine Ratio 35.2 (10.0-20.0); Blood Urea Nitrogen 31 mg/dL (9-23); Glucose 213 mg/dL (74-106)
--- NOTE | 2024-08-18 08:05 | ECG ---
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
--- NOTE | 2024-08-18 09:21 | DVHPN2 ---
Progress Note - Dictate Date Seen: Aug 18, 2024 Medical Necessity Reason Pt with a Central, PICC or Fol: Yes The following are medically ne: Central Line, Vigil Catheter Reason for vigil catheter: Strict I&O Subjective Ms. Recinos is a 73 years old female with a history of hypertension, dyslipidemia, coronary artery disease, heart attack, congestive heart failure, asthma, COPD on home oxygen, gout, anemia, the patient was admitted found her group home on 08/11/2024 with a chief company of shortness of breath I have seen and examined the patient, I have talked to her nurse She is intubated, sedated, eyes are open, she is responsive to verbal stimuli, but not able to follow Her nurse is trying to wean her off sedation, and she was on CPAP intermittently in the last few days Fentanyl 25 mcg/hour, preset 0. 2mcg ABG, 08/12/2024: Respiratory acidosis, hypoxia WBC/HB/PLT/MCV, 08/12/2024: 7.2/11.9/302/85.7 CMP, 08/12/2024: Unremarkable HGB A1c, 04/11/2024: 500 TG/HDL/LDL/HDL, 05/2023: 101/2026/186/45 Vitamin B12, 03/2024: 1161 TSH, 03/2024: 1.39 EEG 08/13/2024: Remarkably abnormal Extremity venous study, 08/13/2024: No evidence of right or left femoropopliteal venous thrombosis. Chest x-ray, 08/12/2024: Left central venous catheter overlies the left upper chest and may be not position. Clinical correlation advised. Endotracheal tube in satisfactory position. Left central venous catheter in uncertain position Chest x-ray, 08/15/24: Hazy bilateral opacities are unchanged CT head, 08/12/2024: Very mild cortical atrophy otherwise unremarkable study CT head, 08/17/2024: No acute intracranial abnormality CTA chest, 08/13/2024: Grossly enlarged pulmonary arteries underlying pulmonary arterial hypertension is suspected no pulmonary embolus There are bilateral infiltrates in the lung bases MRI brain, 07/17/24: No acute intracranial pathology vital signs Vital Sign Date Time Temp Pulse Resp B/P (MAP) Pulse Ox O2 Delivery O2 Flow Rate FiO2 08/18/24 08:00 79 21 176/110 (132) 96 30 08/18/24 08:00 99.0 99.0 08/18/24 07:45 Mechanical Ventilator+ Total Intake and Output 08/17/24 08/17/24 08/18/24 15:00 23:00 07:00 Intake Total 302.723 ml 607.808 ml 851.653 ml Output Total 750 ml 550 ml Balance 302.723 ml -142.192 ml 301.653 ml medications Current Medications Medications Dose Ordered Sig/Kristen Route Start Time Stop Time Status Last Admin Dose Admin Sodium Chloride 10 ml Q8HR IV 08/11/24 14:00 08/18/24 05:43 10 ML Ondansetron HCl 4 mg Q4HP PRN IV 08/11/24 13:00 Docusate Sodium 100 mg BIDPRN PRN PO 08/11/24 13:00 Acetaminophen 650 mg Q6HP PRN PO 08/11/24 13:00 Albuterol 2.5 mg Q6HWA NEB 08/11/24 18:00 08/18/24 06:06 2.5 MG Ipratropium [place] 0.5 mg Q6HWA NEB 08/11/24 18:00 08/18/24 06:06 0.5 MG Latanoprost 1 drop QPM EACHEYE 08/11/24 18:00 08/17/24 17:34 1 DROP Patient Own Medication 1 drop BID EACHEYE 08/11/24 22:00 08/18/24 07:58 1 DROP Albuterol 2.5 mg Q2HPRN PRN NEB 08/11/24 20:45 Ipratropium [place] 0.5 mg Q2HPRN PRN NEB 08/11/24 20:45 Propofol 100 ml @ 2.091 mls/ hr Q24H IV 08/12/24 13:45 Midazolam HCl 50 ml @ 1 mls/hr Q24H IV 08/12/24 13:45 08/14/24 01:18 4 MLS/HR Fentanyl Citrate 250 ml @ 2.5 mls/hr Q24H IV 08/12/24 13:45 08/15/24 19:20 2.5 MLS/HR Pantoprazole Sodium 40 mg DAILY IV 08/13/24 10:00 08/18/24 08:11 40 MG Piperacillin Sod/ Tazobactam Sod 100 ml @ 25 mls/hr Q8HR IV 08/12/24 23:30 08/18/24 05:43 25 MLS/HR Enoxaparin Sodium 40 mg DAILY SC 08/13/24 10:00 08/18/24 08:12 40 MG Vancomycin HCl 0 ml @ 0 mls/hr UD IV 08/13/24 15:30 Enteral Nutritional Formula 1,000 ml 30ML/HR GT 08/13/24 15:30 08/16/24 22:24 1,000 ML Purified Water 200 ml Q6HR GT 08/14/24 12:00 08/18/24 05:43 200 ML Methylprednisolone Sodium Succinate 40 mg Q12HR IV 08/14/24 22:00 08/18/24 08:11 40 MG Sildenafil Citrate 20 mg TID@08,14,20 PO 08/14/24 14:00 08/18/24 08:11 20 MG Fluconazole 100 ml @ 100 mls/hr DAILY IV 08/16/24 10:00 08/18/24 08:11 100 MLS/HR Hydralazine HCl 10 mg Q6HP PRN IV 08/15/24 15:30 08/18/24 00:16 10 MG Dexmedetomidine HCl 400 mcg/ Dextrose 100 ml @ 3.655 mls/ hr Q24H IV 08/15/24 17:30 08/18/24 00:22 7.31 MLS/HR Metoprolol Succinate 25 mg BID PO 08/17/24 22:00 08/17/24 22:11 25 MG Vancomycin HCl 150 ml @ 150 mls/hr Q12H IV 08/18/24 05:00 08/18/24 04:53 150 MLS/HR objective The patient is well-nourished and well-developed with no distress. The patient is intubated MENTAL STATUS: Subjective, CRANIAL NERVES: Pupils are equal, round and reactive. There are corneal reflexes and doll's eyes phenomenon. No signs of facial weakness. There are gagging or coughing reflexes SENSATION: Responses to pain stimuli. MOTOR: Normal tone in the upper and lower extremity. Normal muscle bulk. No fasciculations. No spontaneous movement. REFLEXES: Deep tendon reflexes are symmetrical. No pathological reflexes. CEREBELLAR/COORDINATION: Deferred GAIT/STATION: deferred. laboratory and microbiology Laboratory Tests 08/18/24 04:42 Test 08/18/24 04:42 Range/Units Serum Glucose 213 H 74-106 mg/dL Problem List Coma Hypoxic encephalopathy Metabolic encephalopathy Toxic encephalopathy Cardiopulmonary arrest Respiratory failure Hypoxia Status post CPR Sepsis Pneumonia Acidosis Seizure-like activity to rule out seizure attack Reported anisocoria with right-sided slightly weaker on 08/14/2024 Assessment/Plan Monitoring Supportive treatment ICU care Follow-up labs Respiratory support/vent management Stabilize vitals Antibiotics Oxygen DVT prophylaxis GI prophylaxis Gradually wean off sedation as tolerated More recommendation per clinical course This medical document was created using an electronic medical record system with [employer] dictation system. Although this document has been carefully reviewed, there may still be some phonetic and typographical errors. These areas are purely typographical due to imperfections of the software programs, and do not reflect any compromise in the patient's medical care. Prognosis guarded Dietary Evaluation Review Recommendations by RD: Protein Supplementation Comments: 1) Increase TF rate from 30 mL/hr to 35 mL/hr. Initiate Pro-Stat @ 30 mL bid. Goal rate (including Pro-Stat) will provide 1208 kcals, 77g Pro, and 1178 mL free H2O (including flushes) per 24 hrs. Goal rate will meet ~ 100% estimated daily energy needs and ~94% estimated daily protein needs 2) Initiate vitamin C @ 500 mg and zinc sulfate @ 220 mg qd for 7 days 3) Advance to cardiac diet when medically feasible, pending CONTROL ROOM OPERATOR approval 4) F/u with cardiology and pulmonology 5) Continue to monitor I&O, labs, and skin integrity Expected Outcomes/Goals: 1) appetite and labs to improve 2) diet to advance 3) f/u in 2-3 Interpretation of weight loss: up to 20% in 1 year Plan discussed with: PATRIZIA Gottlieb MD Aug 18, 2024 09:21
[2024-08-18] MEDS: cloNIDine HCL 0.1 MG TAB PO ONE (11:01)
[2024-08-18] MEDS: LABETALOL HCL 20 MG/4 ML VL IV PRN (12:34)
[2024-08-18] MEDS: LACTULOSE 20Gm/30ML SOLN PO ONE (15:58)
[2024-08-18] MEDS: CARVEDILOL 12.5 MG TAB PO ONE (15:59)
[2024-08-18] MEDS: FREE WATER GT SCH (16:33)
[2024-08-18] MEDS: LACTULOSE 20Gm/30ML SOLN PO SCH (18:41)
[2024-08-18] MEDS: LABETALOL HCL 20 MG/4 ML VL IV ONE (20:58)
[2024-08-18] MEDS: CARVEDILOL 12.5 MG TAB PO SCH (21:15)
[2024-08-19] VITALS (109 sets, daily range): BP systolic 89–206; BP diastolic 52–116; PULSE 62–102; RESP 12–28; TEMP 97.6–98.4; O2SAT 91–99
[2024-08-19 05:37] LABS: Basophils # (auto) 0 10 ^3/uL (0-0.2); Basophils % (auto) 0.2 % (0.0-2.0); Eosinophils # (auto) 0 10 ^3/uL (0-0.8)
[2024-08-19 05:43] LABS: Hematocrit 41.3 % (36.0-46.0); Hemoglobin 12.9 g/dL (12.2-16.2); Lymphocytes # (auto) 0.6 10 ^3/uL (0.4-5.4); Lymphocytes % (auto) 4.6 % (10.0-50.0); Mean Corpuscular Hgb Conc. 31.2 g/dL (32.0-36.0); Mean Corpuscular Volume 86.5 fL (80.0-100.0); Monocytes # (auto) 0.7 10 ^3/uL (0-1.3); Neutrophils # (auto) 12.5 10 ^3/uL (1.6-8.6); Neutrophils % (auto) 90.2 % (37.0-80.0); Nucleated Red Blood Cells % 0.1 %; Platelet Count (auto) 167 10^3/uL (140-450); Red Blood Cells 4.77 10^6/uL (4.0-5.20); Red Cell Distribution Width 15.7 % (11.8-14.3); White Blood Cell 13.9 10^3/uL (4.4-10.8)
[2024-08-19 06:00] LABS: Alanine Aminotransferase 108 U/L (7-40); Albumin 3.8 g/dL (3.2-4.8); Alkaline Phosphatase 86 U/L (46-116); Anion Gap 9 (5-15); Aspartate Aminotransferase 61 U/L (13-40); BUN/Creatinine Ratio 31.1 (10.0-20.0); Bilirubin, Total 0.9 mg/dL (0.2-1.0); Blood Urea Nitrogen 23 mg/dL (9-23); Carbon Dioxide 29 mmol/L (20-31); Chloride 102 mmol/L (98-107); Glucose 184 mg/dL (74-106); Magnesium 2.2 mg/dL (1.6-2.6); Potassium 3.2 mmol/L (3.5-5.1); Sodium 140 mmol/L (136-145); Total Protein 6.2 g/dL (5.7-8.2)
--- NOTE | 2024-08-19 06:04 | DVH ---
EXAM: XR Chest, 1 View CLINICAL INDICATION: PNA TECHNIQUE: Frontal view of the chest. COMPARISON: XY CHEST PORTABLE on DOS: 08/16/24, XY CHEST PORTABLE on DOS: 08/15/24, XY CHEST PORTABLE on DOS: 08/14/24, XY CHEST PORTABLE on DOS: 08/13/24, XY CHEST XRAY 1 VIEW on DOS: 08/12/24 FINDINGS: LUNGS AND PLEURAL SPACES: See below. HEART: Cardiomegaly with mild congestion. MEDIASTINUM: Unremarkable. Normal mediastinal contour. BONES/JOINTS: Unremarkable. No acute fracture. TUBES, LINES AND DEVICES: Stable tubes and lines. OTHER FINDINGS: . .. IMPRESSION: Cardiomegaly with mild congestion.
[2024-08-19 06:11] LABS: Calcium 9.1 mg/dL (8.7-10.4)
[2024-08-19] MEDS ORDERED: POTASSIUM CHL 20MEQ/100ML 100 ML IV SCH (06:45)
--- NOTE | 2024-08-19 07:27 | DVHPNRES ---
Progress Note Date Seen: Aug 19, 2024 Resident Creating Document: CALI WITT Medical Necessity Reason Pt with a Central, PICC or Fol: Yes The following are medically ne: Central Line, Vigil Catheter Reason for vigil catheter: Strict I&O Subjective Review of Systems Patient is 73 years old female with past medical history of asthma, COPD, on home oxygen NCO2 2L/mnt, CAD-MO, CHF, pulmonary hypertension, hypertension, hyperlipidemia, rheumatoid arthritis, gout, anemia came to the hospital with shortness of breaths. Information gathered from reviewing the chart and talking to the family. Having chest pain and shortness of breaths for couple of days before she came into the hospital. Patient was admitted the hospital 1 month before with the abdominal pain, pneumonia. Following discharge patient was sent to [facility] for rehabilitation. Significant initial lab workup-troponin I with a normal limit, BNP elevated 273. CXR-Patchy bibasilar airspace opacities. Cardiomegaly. CT head-08/12/2024 -Very mild cortical atrophy otherwise unremarkable study. CT angio on 08/13/2024- grossly enlarged the main pulmonary artery measures 5.3 cm in caliber, right pulmonary artery measures 3.13 cm in caliber in the left pulmonary artery measures 2.67 cm in caliber. Heart is enlarged. There is a posterior consolidated right lower lobe evidence for bilateral interstitial infiltrates and possibly edema. No evidence for pulmonary embolus the ascending aorta measures 3.77 cm. Also bilateral small consolidates in the posterior right and left lower lobes. Grossly enlarged pulmonary arteries underlying pulmonary arterial hypertension is suspected no pulmonary embolus. There are bilateral infiltrates in the lung bases. One 08/13/2024 Doppler study of the lower extremity negative for DVT. ECHO 2D on 08/14/24 revealed-LVEF 60%, concentric left ventricular hypertrophy with right ventricle and right atrial enlargement. On 08/14/2024- MRI of the brain-no acute abnormality noted. On 08/18/2023 CT head- No acute intracranial abnormality.. Patient had several visits over the year in this hospital. In July 17, 2024, April 16, 2024, June 16, 2023, February 2023, August 14, 2022, September 2012, August 2012, August 2012 Code assist was called on 08/12/2024-patient was found to have unresponsive, stiffness of the bilateral upper and lower extremity, bradycardia, agonal respiration. Code assist was converted to code blue were severe was initiated by bedside RN. Status post CPR. ROSC 20 minutes Patient was intubated on 08/12/2024. Left internal jugular central line was placed on 08/12/2024 Bronchoscopy was done on 08/12/2024-impression- Left lower lobe atelectasis due to mucous plugging. Mucous plugging from L6-L10 and R1-R3 Echo 2D- 04/12/2024 revealed an LVEF of 50% with moderate LVH, RV and left atrium enlargement. The patient also underwent a recent right and left cardiac catheterization on 12/2023 revealing no significant coronary artery disease, elevated left ventricular end-diastolic pressures indicating diastolic heart failure, and pulmonary hypertension deemed to be multifactorial primarily secondary to diastolic heart failure in addition to chronic lung processes for which she was initiated on Sildenafil therapy on 04/2024. Patient had nuclear stress test in -03/19/2023 negative for ischemia, LVEF 59% PMH-heart failure, COPD, asthma, pulmonary hypertension, CAD, MO, hypertension, hyperlipidemia, diabetes mellitus type 2, COPD, asthma, gout, rheumatoid arthritis, anemia PSH- tubal ligation, right foot surgery, tonsillectomy, bilateral total knee replacement, right eye surgery, Allergy- , levofloxacin, ceftriaxone Personal History/ Social History- No history of smoking, alcohol and other drug abuse Patient is off sedation but patient, awake but not following, Patient was seen today for clinical evaluation. Labs and chart reviewed. Overnight patient's BP ranging from 134-196/24-103, -pulse 70-102, temperature 97.5-99.0 Discontinued hydralazine, ordered clonidine 0.1 mg p.o. b.i.d., amlodipine 10 mg p.o. daily, increase labetalol 20 mg IV q.2h p.r.n. I/O- intake 1836, output 1450 mL, positive balance 86 Lab workup ABG on 08/19/2024-pH 7.45, pCO2 41.5, PO2 86.4, bicarbonate 28.3 WBC 7.1> 7.2> 14.1> 11.4> 9.3> 12.1>? 12.9 >12.9> 15.0> 13.9 Hemoglobin 13.1> 11.9> 10.8> 11.0> 10.5> 11.9> 12.5> 13.4> 12.9 platelet 276>> 302 264> 252> 229> 217> 228> 242> 295> 167 Sodium 137> 142> 147> 146> 148> 148> 143> 148>> 143 >140> 139> 140 Potassium> 3.9> 4.0> 3.7> 3.6> 3.7> 3.7> 3.5> 3.8> 3.5> 3.8> 3.9> 3.2 Serum creatinine 0.92> 0.87> 1.22> 1.21> 1.19> 0.98> 0.78> 0.81>0.88> 0.74 BUN 18> 31> 26> 29> 26> 22> 24> 31> 23 Serum> bilirubin 0.5> 0.6>0.5> 0.5 0.8> 1.2> 0.9 AST> 20 88> 50> 37> 43> 49> 61 ALT 17> 91> 69> 56> 58> 70> 108 Blood culture no growth so far Urine culture <[id number] CFU Yeast Respiratory Culture preliminary no growth Patient on antibiotic Zosyn and vancomycin Provider spoke to patient's daughter Ms. Nieves Levy,-[phone], discussed patient's current medical condition, plan of care, answered her questions Objective vital signs Vital Sign Date Time Temp Pulse Resp B/P (MAP) Pulse Ox O2 Delivery O2 Flow Rate FiO2 08/19/24 07:00 86 24 173/97 (122) 96 30 08/19/24 06:00 Mechanical Ventilator+ 08/19/24 04:00 97.6 97.6 Total Intake and Output 08/18/24 08/18/24 08/19/24 15:00 23:00 07:00 Intake Total 246.552 ml 690.208 ml 416.448 ml Output Total 850 ml 600 ml Balance 246.552 ml -159.792 ml -183.552 ml medications Current Medications Medications Dose Ordered Sig/Kristen Route Start Time Stop Time Status Last Admin Dose Admin Sodium Chloride 10 ml Q8HR IV 08/11/24 14:00 08/19/24 05:10 10 ML Ondansetron HCl 4 mg Q4HP PRN IV 08/11/24 13:00 Docusate Sodium 100 mg BIDPRN PRN PO 08/11/24 13:00 Acetaminophen 650 mg Q6HP PRN PO 08/11/24 13:00 Albuterol 2.5 mg Q6HWA NEB 08/11/24 18:00 08/19/24 05:31 2.5 MG Ipratropium [place] 0.5 mg Q6HWA NEB 08/11/24 18:00 08/19/24 05:31 0.5 MG Latanoprost 1 drop QPM EACHEYE 08/11/24 18:00 08/18/24 21:16 1 DROP Patient Own Medication 1 drop BID EACHEYE 08/11/24 22:00 08/18/24 22:22 1 DROP Albuterol 2.5 mg Q2HPRN PRN NEB 08/11/24 20:45 Ipratropium [place] 0.5 mg Q2HPRN PRN NEB 08/11/24 20:45 Propofol 100 ml @ 2.091 mls/ hr Q24H IV 08/12/24 13:45 Midazolam HCl 50 ml @ 1 mls/hr Q24H IV 08/12/24 13:45 08/14/24 01:18 4 MLS/HR Fentanyl Citrate 250 ml @ 2.5 mls/hr Q24H IV 08/12/24 13:45 08/15/24 19:20 2.5 MLS/HR Pantoprazole Sodium 40 mg DAILY IV 08/13/24 10:00 08/18/24 08:11 40 MG Piperacillin Sod/ Tazobactam Sod 100 ml @ 25 mls/hr Q8HR IV 08/12/24 23:30 08/19/24 06:21 25 MLS/HR Enoxaparin Sodium 40 mg DAILY SC 08/13/24 10:00 08/18/24 08:12 40 MG Vancomycin HCl 0 ml @ 0 mls/hr UD IV 08/13/24 15:30 Enteral Nutritional Formula 1,000 ml 30ML/HR GT 08/13/24 15:30 08/16/24 22:24 1,000 ML Methylprednisolone Sodium Succinate 40 mg Q12HR IV 08/14/24 22:00 08/18/24 21:14 40 MG Sildenafil Citrate 20 mg TID@08,14,20 PO 08/14/24 14:00 08/18/24 21:13 20 MG Fluconazole 100 ml @ 100 mls/hr DAILY IV 08/16/24 10:00 08/18/24 08:11 100 MLS/HR Hydralazine HCl 10 mg Q6HP PRN IV 08/15/24 15:30 08/19/24 06:22 10 MG Dexmedetomidine HCl 400 mcg/ Dextrose 100 ml @ 3.655 mls/ hr Q24H IV 08/15/24 17:30 08/18/24 17:14 5.483 MLS/HR Vancomycin HCl 150 ml @ 150 mls/hr Q12H IV 08/18/24 05:00 08/19/24 05:09 150 MLS/HR Labetalol HCl 10 mg Q2HPRN PRN IV 08/18/24 12:15 08/18/24 22:23 10 MG Purified Water 100 ml Q6HR GT 08/18/24 18:00 08/19/24 05:09 100 ML Carvedilol 25 mg Q12HR PO 08/18/24 22:00 08/18/24 21:15 25 MG Lactulose 30 ml Q6HR PO 08/18/24 18:00 08/18/24 23:54 30 ML Potassium Chloride 50 ml @ 25 mls/hr Q2H IV 08/19/24 07:00 08/19/24 10:59 Examination General examination- patient on mechanical ventilation, on sedation HEENT- PEERLA, no acute nasal discharge Cardiovascular- S1-S2 audible, rate and rhythm regular, no murmur Respiratory- bilateral lung crackles+, + wheezing Gastrointestinal-nontender, bowel sound+. Nondistended Musculoskeletal-swan neck deformity on bilateral hands+, edematous bilateral hands Lower extremity- mild pedal edema+ Neurological- Could not be assessed as patient is on ventilator and sedation Skin- no acute rash or purpura laboratory and microbiology Laboratory Tests 08/19/24 04:50 Test 08/19/24 04:50 Range/Units Serum Glucose 184 H 74-106 mg/dL Microbiology Date/Time Source Procedure Growth Status 08/13/24 04:40 Blood Blood Culture - Final NO GROWTH AFTER 5 DAYS OF INCUBATION. Complete 08/13/24 03:00 Urine - Vigil [place] Urine Culture - Final Complete 08/13/24 02:49 Sputum Gram Stain - Final Complete 08/13/24 02:49 Sputum Respiratory Culture - Final Complete Problem List/Assessment/Plan Problem List/Assessment/Plan Assessment and plan On 08/15/2024 failed CPAP trial as patient was not awake or alert, off sedation or pressor Plan is to do CPAP trial at a.m. No sedative please Neurology # metabolic encephalopathy/toxic encephalopathy/hypoxic encephalopathy -status post cardiac arrest, status post CPR -patient on mechanical ventilation, on sedation -CT head very mild cortical atrophy -MRI of the brain- No acute intracranial pathology -continue current management Cardiovascular -Acute diastolic heart failure -echo 2D on 08/13/2024-LVEF 60%, concentric LVH with right ventricle and right atrial enlargement. -CAD -pulmonary hypertension -history of hypertension -hyperlipidemia -continue nebulization -continue Coreg 6.25 mg b.i.d. Respiratory -acute hypoxic respiratory failure -acute exacerbation of COPD -pulmonary hypertension -failed CPAP trial on 08/18/2024 -Blood culture no growth so far -Urine culture less [place] 23221 colony-forming units per mL yeast -Respiratory Culture preliminary no growth -continue nebulization -methylprednisolone 40 mg IV q.12 hours -sildenafil 20 mg t.i.d. Gastrointestinal -transaminitis -monitor CMP Genitourinary/renal -HECTOR likely due to VMN -right kidney cyst in the lower pole -avoid dehydration and nephrotoxic drugs Infectious disease -? Septic shock -acute pneumonia Gram-positive versus Gram-negative -continue Zosyn and vancomycin as prescribed Hemato oncology -anemia of chronic disease -monitor CBC Endocrinology/ metabolic disorder -obesity Musculoskeletal -rheumatoid arthritis -gout -continue current management Skin or elementary -wound care consult in place Lines-left internal jugular central line and right radial artery line-08/12/2024 Drips- ETT Vigil's catheter Arterial line placed on 08/12/2024 Goals of care/advance care planning Code status ; discussed with >25 minutes PUD prophylaxis: Pantoprazole DVT prophylaxis: Lovenox Plan discussed with Dr. Hernandez, nursing staff, daughter Total time spent on patient evaluation, chart review, assessment and plan, total critical time spent including monitoring mechanical ventilation, excluding procedure 67 minutes Plan discussed with: Daughter, Other (RN) My Orders My Orders Orders - CALI WITT RESIDENT Procedure Category Date Status Time Cpap Trial For Am ORDERS 08/18/24 Transmitted 09:58 Labetalol Hcl PHA 08/18/24 In Process (Labetalol Hcl) 12:15 Chest Portable XY 08/19/24 Resulted 04:00 Abg W/ Co-Ox RT 08/19/24 Logged 05:00 Cpap Trial For Am ORDERS 08/18/24 Transmitted 17:16 Dietary Evaluation Review Recommendations by RD: Protein Supplementation Comments: 1) Increase TF rate from 30 mL/hr to 35 mL/hr. Initiate Pro-Stat @ 30 mL bid. Goal rate (including Pro-Stat) will provide 1208 kcals, 77g Pro, and 1178 mL free H2O (including flushes) per 24 hrs. Goal rate will meet ~ 100% estimated daily energy needs and ~94% estimated daily protein needs 2) Initiate vitamin C @ 500 mg and zinc sulfate @ 220 mg qd for 7 days 3) Advance to cardiac diet when medically feasible, pending SHIPPING AND RECEIVING approval 4) F/u with cardiology and pulmonology 5) Continue to monitor I&O, labs, and skin integrity Expected Outcomes/Goals: 1) appetite and labs to improve 2) diet to advance 3) f/u in 2-3 Interpretation of weight loss: up to 20% in 1 year Date of Service: Aug 19, 2024 Billing Provider: ROSHAN HERNANDEZ MD Common Visit Codes: [id number] CARE 30-74 MIN CALI WITT RESIDENT Aug 19, 2024 07:27 ROSHAN HERNANDEZ MD Aug 20, 2024 16:09
[2024-08-19] MEDS: hydrALAZINE HCL 25 MG TAB PO ONE (08:53)
[2024-08-19] MEDS: POTASSIUM CHL 20MEQ/50ML 50 ML IV SCH (09:26)
[2024-08-19] MEDS: hydrALAZINE HCL 25 MG TAB PO SCH (09:35)
--- NOTE | 2024-08-19 10:31 | DVHPN2 ---
Progress Note - Dictate Date Seen: Aug 19, 2024 Medical Necessity Reason Pt with a Central, PICC or Fol: Yes The following are medically ne: Central Line, Vigil Catheter Reason for vigil catheter: Strict I&O Subjective Ms. Recinos is a 73 years old female with a history of hypertension, dyslipidemia, coronary artery disease, heart attack, congestive heart failure, asthma, COPD on home oxygen, gout, anemia, the patient was admitted found her intermediate on 08/11/2024 with a chief company of shortness of breath I have seen and examined the patient, I have talked to her nurse. She is intubated, sedated, eyes are open, she is not responsive to visual threat or verbal stimuli, she does not move the extremities Precedex 0.2 mcg ABG, 08/12/2024: Respiratory acidosis, hypoxia WBC/HB/PLT/MCV, 08/12/2024: 7.2/11.9/302/85.7, 08/19/2024: 13.9/12.9/167/86.5 CMP, 08/12/2024: Unremarkable HGB A1c, 04/11/2024: 500 TBI/AST/ALT/AP, 08/19/2024: 0.19/61/108/86 TG/HDL/LDL/HDL, 05/2023: 101/2026/186/45 Vitamin B12, 03/2024: 1161 TSH, 03/2024: 1.39 EEG 08/13/2024: Remarkably abnormal Extremity venous study, 08/13/2024: No evidence of right or left femoropopliteal venous thrombosis. Chest x-ray, 08/12/2024: Left central venous catheter overlies the left upper chest and may be not position. Clinical correlation advised. Endotracheal tube in satisfactory position. Left central venous catheter in uncertain position Chest x-ray, 08/15/24: Hazy bilateral opacities are unchanged CT head, 08/12/2024: Very mild cortical atrophy otherwise unremarkable study CT head, 08/17/2024: No acute intracranial abnormality CTA chest, 08/13/2024: Grossly enlarged pulmonary arteries underlying pulmonary arterial hypertension is suspected no pulmonary embolus There are bilateral infiltrates in the lung bases MRI brain, 07/17/24: No acute intracranial pathology vital signs Vital Sign Date Time Temp Pulse Resp B/P (MAP) Pulse Ox O2 Delivery O2 Flow Rate FiO2 08/19/24 09:35 198/99 08/19/24 09:04 101 23 94 30 08/19/24 08:00 97.9 97.9 08/19/24 06:00 Mechanical Ventilator+ Total Intake and Output 08/18/24 08/18/24 08/19/24 15:00 23:00 07:00 Intake Total 246.552 ml 690.208 ml 566.448 ml Output Total 850 ml 600 ml Balance 246.552 ml -159.792 ml -33.552 ml medications Current Medications Medications Dose Ordered Sig/Kristen Route Start Time Stop Time Status Last Admin Dose Admin Sodium Chloride 10 ml Q8HR IV 08/11/24 14:00 08/19/24 05:10 10 ML Ondansetron HCl 4 mg Q4HP PRN IV 08/11/24 13:00 Docusate Sodium 100 mg BIDPRN PRN PO 08/11/24 13:00 Acetaminophen 650 mg Q6HP PRN PO 08/11/24 13:00 Albuterol 2.5 mg Q6HWA NEB 08/11/24 18:00 08/19/24 05:31 2.5 MG Ipratropium [place] 0.5 mg Q6HWA NEB 08/11/24 18:00 08/19/24 05:31 0.5 MG Latanoprost 1 drop QPM EACHEYE 08/11/24 18:00 08/18/24 21:16 1 DROP Patient Own Medication 1 drop BID EACHEYE 08/11/24 22:00 08/19/24 10:00 1 DROP Albuterol 2.5 mg Q2HPRN PRN NEB 08/11/24 20:45 Ipratropium [place] 0.5 mg Q2HPRN PRN NEB 08/11/24 20:45 Propofol 100 ml @ 2.091 mls/ hr Q24H IV 08/12/24 13:45 Midazolam HCl 50 ml @ 1 mls/hr Q24H IV 08/12/24 13:45 08/14/24 01:18 4 MLS/HR Fentanyl Citrate 250 ml @ 2.5 mls/hr Q24H IV 08/12/24 13:45 08/15/24 19:20 2.5 MLS/HR Pantoprazole Sodium 40 mg DAILY IV 08/13/24 10:00 08/19/24 09:44 40 MG Piperacillin Sod/ Tazobactam Sod 100 ml @ 25 mls/hr Q8HR IV 08/12/24 23:30 08/19/24 06:21 25 MLS/HR Enoxaparin Sodium 40 mg DAILY SC 08/13/24 10:00 08/19/24 09:45 40 MG Vancomycin HCl 0 ml @ 0 mls/hr UD IV 08/13/24 15:30 Enteral Nutritional Formula 1,000 ml 30ML/HR GT 08/13/24 15:30 08/16/24 22:24 1,000 ML Methylprednisolone Sodium Succinate 40 mg Q12HR IV 08/14/24 22:00 08/19/24 09:45 40 MG Sildenafil Citrate 20 mg TID@08,14,20 PO 08/14/24 14:00 08/19/24 09:44 20 MG Fluconazole 100 ml @ 100 mls/hr DAILY IV 08/16/24 10:00 08/18/24 08:11 100 MLS/HR Hydralazine HCl 10 mg Q6HP PRN IV 08/15/24 15:30 08/19/24 06:22 10 MG Dexmedetomidine HCl 400 mcg/ Dextrose 100 ml @ 3.655 mls/ hr Q24H IV 08/15/24 17:30 08/18/24 17:14 5.483 MLS/HR Vancomycin HCl 150 ml @ 150 mls/hr Q12H IV 08/18/24 05:00 08/19/24 05:09 150 MLS/HR Labetalol HCl 10 mg Q2HPRN PRN IV 08/18/24 12:15 08/18/24 22:23 10 MG Purified Water 100 ml Q6HR GT 08/18/24 18:00 08/19/24 05:09 100 ML Carvedilol 25 mg Q12HR PO 08/18/24 22:00 08/18/24 21:15 25 MG Lactulose 30 ml Q6HR PO 08/18/24 18:00 08/18/24 23:54 30 ML Potassium Chloride 50 ml @ 25 mls/hr Q2H IV 08/19/24 07:00 08/19/24 10:59 08/19/24 09:26 25 MLS/HR Hydralazine HCl 50 mg Q12HR PO 08/19/24 10:00 objective The patient is well-nourished and well-developed with no distress. The patient is intubated MENTAL STATUS: Subjective, CRANIAL NERVES: Pupils are equal, round and reactive, right to is minimally bigger. Eyes are neutral position. No signs of facial weakness. There are gagging or coughing reflexes SENSATION: Responses to pain stimuli. MOTOR: Normal tone in the upper and lower extremity. Normal muscle bulk. No fasciculations. No spontaneous movement. REFLEXES: Deep tendon reflexes are symmetrical. No pathological reflexes. CEREBELLAR/COORDINATION: Deferred GAIT/STATION: deferred. laboratory and microbiology Laboratory Tests 08/19/24 04:50 Test 08/19/24 04:50 Range/Units Serum Glucose 184 H 74-106 mg/dL Problem List Coma Hypoxic encephalopathy Metabolic encephalopathy Toxic encephalopathy Cardiopulmonary arrest Respiratory failure Hypoxia Status post CPR Sepsis Pneumonia Acidosis Seizure-like activity to rule out seizure attack Reported anisocoria with right-sided slightly weaker on 08/14/2024, evident physical examination on 08/19/2024 Assessment/Plan Monitoring Supportive treatment ICU care Follow-up labs Respiratory support/vent management Stabilize vitals Antibiotics Oxygen DVT prophylaxis GI prophylaxis Gradually wean off sedation as tolerated More recommendation per clinical course This medical document was created using an electronic medical record system with [employer] dictation system. Although this document has been carefully reviewed, there may still be some phonetic and typographical errors. These areas are purely typographical due to imperfections of the software programs, and do not reflect any compromise in the patient's medical care. Prognosis guarded Dietary Evaluation Review Recommendations by RD: Protein Supplementation Comments: 1) Increase TF rate from 30 mL/hr to 35 mL/hr. Initiate Pro-Stat @ 30 mL bid. Goal rate (including Pro-Stat) will provide 1208 kcals, 77g Pro, and 1178 mL free H2O (including flushes) per 24 hrs. Goal rate will meet ~ 100% estimated daily energy needs and ~94% estimated daily protein needs 2) Initiate vitamin C @ 500 mg and zinc sulfate @ 220 mg qd for 7 days 3) Advance to cardiac diet when medically feasible, pending BIND[employer] TECHNICIAN approval 4) F/u with cardiology and pulmonology 5) Continue to monitor I&O, labs, and skin integrity Expected Outcomes/Goals: 1) appetite and labs to improve 2) diet to advance 3) f/u in 2-3 Interpretation of weight loss: up to 20% in 1 year Plan discussed with: Other PATRIZIA SHERWOOD MD Aug 19, 2024 10:31
[2024-08-19] MEDS: cloNIDine HCL 0.1 MG TAB PO ONE (15:45)
[2024-08-19] MEDS: amLODIPine BESYLATE 5 MG TAB PO ONE (16:26)
[2024-08-19] MEDS: LABETALOL HCL 20 MG/4 ML VL IV PRN (17:19)
[2024-08-19] MEDS: VANCOMYCIN 1GM/200ML PM 250 ML IV SCH (21:01)
[2024-08-19] MEDS: cloNIDine HCL 0.1 MG TAB PO SCH (21:43)
[2024-08-20] VITALS (109 sets, daily range): BP systolic 101–185; BP diastolic 47–97; PULSE 71–93; RESP 16–25; TEMP 97.4–98.9; O2SAT 92–100
--- NOTE | 2024-08-20 05:00 | DVH ---
CHEST RADIOGRAPH Indication: PNA Technique: Single frontal view of the chest was obtained Comparison: XY CHEST PORTABLE on DOS: 08/19/24 FINDINGS: Lines and Tubes: The endotracheal tube and enteric tube are unchanged in position. Lungs: Pulmonary vascular congestion is unchanged. Pleura: No effusion. No pneumothorax. Cardiomediastinal contours: Stable Cardiovascular silhouette. Bones: No acute osseous abnormality. IMPRESSION: Unchanged pulmonary vascular congestion.
[2024-08-20 05:35] LABS: Basophils # (auto) 0 10 ^3/uL (0-0.2); Basophils % (auto) 0.1 % (0.0-2.0); Eosinophils # (auto) 0 10 ^3/uL (0-0.8); Hematocrit 39.6 % (36.0-46.0); Hemoglobin 12.7 g/dL (12.2-16.2); Lymphocytes # (auto) 0.6 10 ^3/uL (0.4-5.4); Lymphocytes % (auto) 3.9 % (10.0-50.0); Mean Corpuscular Volume 84.6 fL (80.0-100.0); Monocytes # (auto) 0.7 10 ^3/uL (0-1.3); Monocytes % (auto) 4.3 % (0.0-12.0); Neutrophils # (auto) 14.2 10 ^3/uL (1.6-8.6); Neutrophils % (auto) 91.7 % (37.0-80.0); Nucleated Red Blood Cells % 0.1 %; Platelet Count (auto) 221 10^3/uL (140-450); Red Blood Cells 4.68 10^6/uL (4.0-5.20); Red Cell Distribution Width 14.9 % (11.8-14.3); White Blood Cell 15.5 10^3/uL (4.4-10.8)
[2024-08-20 05:46] LABS: Albumin 3.7 g/dL (3.2-4.8); Alkaline Phosphatase 83 U/L (46-116); Anion Gap 6 (5-15); Aspartate Aminotransferase 33 U/L (13-40); BUN/Creatinine Ratio 29.2 (10.0-20.0); Blood Urea Nitrogen 19 mg/dL (9-23); Calcium 9.3 mg/dL (8.7-10.4); Carbon Dioxide 30 mmol/L (20-31); Chloride 101 mmol/L (98-107); Magnesium 2.4 mg/dL (1.6-2.6); Potassium 3.6 mmol/L (3.5-5.1); Sodium 137 mmol/L (136-145); Total Protein 6.1 g/dL (5.7-8.2)
[2024-08-20 05:54] LABS: Alanine Aminotransferase 80 U/L (7-40); Glucose 183 mg/dL (74-106)
--- NOTE | 2024-08-20 06:14 | DVHPNRES ---
Progress Note Date Seen: Aug 20, 2024 Resident Creating Document: CALI WITT Medical Necessity Reason Pt with a Central, PICC or Fol: Yes The following are medically ne: Central Line, Vigil Catheter Reason for vigil catheter: Strict I&O Subjective Review of Systems Patient is 73 years old female with past medical history of asthma, COPD, on home oxygen NCO2 2L/mnt, CAD-CA, CHF, pulmonary hypertension, hypertension, hyperlipidemia, rheumatoid arthritis, gout, anemia came to the hospital with shortness of breaths. Information gathered from reviewing the chart and talking to the family. Having chest pain and shortness of breaths for couple of days before she came into the hospital. Patient was admitted the hospital 1 month before with the abdominal pain, pneumonia. Following discharge patient was sent to [facility] for rehabilitation. Significant initial lab workup-troponin I with a normal limit, BNP elevated 273. CXR-Patchy bibasilar airspace opacities. Cardiomegaly. CT head-08/12/2024 -Very mild cortical atrophy otherwise unremarkable study. CT angio on 08/13/2024- grossly enlarged the main pulmonary artery measures 5.3 cm in caliber, right pulmonary artery measures 3.13 cm in caliber in the left pulmonary artery measures 2.67 cm in caliber. Heart is enlarged. There is a posterior consolidated right lower lobe evidence for bilateral interstitial infiltrates and possibly edema. No evidence for pulmonary embolus the ascending aorta measures 3.77 cm. Also bilateral small consolidates in the posterior right and left lower lobes. Grossly enlarged pulmonary arteries underlying pulmonary arterial hypertension is suspected no pulmonary embolus. There are bilateral infiltrates in the lung bases. One 08/13/2024 Doppler study of the lower extremity negative for DVT. ECHO 2D on 08/14/24 revealed-LVEF 60%, concentric left ventricular hypertrophy with right ventricle and right atrial enlargement. On 08/14/2024- MRI of the brain-no acute abnormality noted. On 08/18/2023 CT head- No acute intracranial abnormality.. Patient had several visits over the year in this hospital. In July 17, 2024, April 16, 2024, June 16, 2023, February 2023, August 14, 2022, September 2012, August 2012, August 2012 Code assist was called on 08/12/2024-patient was found to have unresponsive, stiffness of the bilateral upper and lower extremity, bradycardia, agonal respiration. Code assist was converted to code blue were severe was initiated by bedside RN. Status post CPR. ROSC 20 minutes Patient was intubated on 08/12/2024. Left internal jugular central line was placed on 08/12/2024 Bronchoscopy was done on 08/12/2024-impression- Left lower lobe atelectasis due to mucous plugging. Mucous plugging from L6-L10 and R1-R3 Echo 2D- 04/12/2024 revealed an LVEF of 50% with moderate LVH, RV and left atrium enlargement. The patient also underwent a recent right and left cardiac catheterization on 12/2023 revealing no significant coronary artery disease, elevated left ventricular end-diastolic pressures indicating diastolic heart failure, and pulmonary hypertension deemed to be multifactorial primarily secondary to diastolic heart failure in addition to chronic lung processes for which she was initiated on Sildenafil therapy on 04/2024. Patient had nuclear stress test in -03/19/2023 negative for ischemia, LVEF 59% PMH-heart failure, COPD, asthma, pulmonary hypertension, CAD, CA, hypertension, hyperlipidemia, diabetes mellitus type 2, COPD, asthma, gout, rheumatoid arthritis, anemia PSH- tubal ligation, right foot surgery, tonsillectomy, bilateral total knee replacement, right eye surgery, Allergy- , levofloxacin, ceftriaxone Personal History/ Social History- No history of smoking, alcohol and other drug abuse Patient was seen today for clinical evaluation. Labs and chart reviewed. Overnight patient's BP ranging from 132-162/68-88, Pulse 77-94, temperature 97.6-98.7 I/O , intake 603, output 675, negative balance 71 Lab workup Decreased methylprednisolone from 40-20 mg b.i.d. Discontinue central line, order for PICC line in place Patient with eye opening but not following command, Arterial line to cough on 08/20/2024 ABG on 08/19/2024-PH 7.46, PCO2 43.2, PO2 85.0, bicarbonate 30.5 CXR no significant change WBC 7.1> 7.2> 14.1> 11.4> 9.3> 12.1>? 12.9 >12.9> 15.0> 13.9> 15.5 Hemoglobin 13.1> 11.9> 10.8> 11.0> 10.5> 11.9> 12.5> 13.4> 12.9> 12.7 platelet 276>> 302 264> 252> 229> 217> 228> 242> 295> 167> 221 Sodium 137> 142> 147> 146> 148> 148> 143> 148>> 143 >140> 139> 140> 137 Potassium> 3.9> 4.0> 3.7> 3.6> 3.7> 3.7> 3.5> 3.8> 3.5> 3.8> 3.9> 3.2> 3.2 Serum creatinine 0.92> 0.87> 1.22> 1.21> 1.19> 0.98> 0.78> 0.81>0.88> 0.74> 0.65 BUN 18> 31> 26> 29> 26> 22> 24> 31> 23> 19 Serum> bilirubin 0.5> 0.6>0.5> 0.5 0.8> 1.2> 0.9 > 1.0 AST> 20 88> 50> 37> 43> 49> 61> 33 ALT 17> 91> 69> 56> 58> 70> 108> 80 Blood culture no growth so far Urine culture <63010 CFU Yeast Respiratory Culture preliminary no growth Patient on antibiotic Zosyn and vancomycin Provider spoke to patient's daughter Ms. Nieves Levy,-[phone], discussed patient's current medical condition, plan of care, answered her questions Objective vital signs Vital Sign Date Time Temp Pulse Resp B/P (MAP) Pulse Ox O2 Delivery O2 Flow Rate FiO2 08/20/24 05:15 87 20 149/79 (102) 96 164/77 (106) 08/20/24 04:10 30 08/20/24 04:00 Mechanical Ventilator+ 08/20/24 04:00 97.4 97.4 Total Intake and Output 08/19/24 08/19/24 08/20/24 15:00 23:00 07:00 Intake Total 223.758 ml 380 ml Output Total 675 ml Balance 223.758 ml -295 ml medications Current Medications Medications Dose Ordered Sig/Kristen Route Start Time Stop Time Status Last Admin Dose Admin Sodium Chloride 10 ml Q8HR IV 08/11/24 14:00 08/20/24 05:41 10 ML Ondansetron HCl 4 mg Q4HP PRN IV 08/11/24 13:00 Docusate Sodium 100 mg BIDPRN PRN PO 08/11/24 13:00 Acetaminophen 650 mg Q6HP PRN PO 08/11/24 13:00 Albuterol 2.5 mg Q6HWA NEB 08/11/24 18:00 08/19/24 18:07 2.5 MG Ipratropium [place] 0.5 mg Q6HWA NEB 08/11/24 18:00 08/19/24 18:07 0.5 MG Latanoprost 1 drop QPM EACHEYE 08/11/24 18:00 08/18/24 21:16 1 DROP Patient Own Medication 1 drop BID EACHEYE 08/11/24 22:00 08/19/24 21:56 1 DROP Albuterol 2.5 mg Q2HPRN PRN NEB 08/11/24 20:45 Ipratropium [place] 0.5 mg Q2HPRN PRN NEB 08/11/24 20:45 Fentanyl Citrate 250 ml @ 2.5 mls/hr Q24H IV 08/12/24 13:45 08/15/24 19:20 2.5 MLS/HR Pantoprazole Sodium 40 mg DAILY IV 08/13/24 10:00 08/19/24 09:44 40 MG Piperacillin Sod/ Tazobactam Sod 100 ml @ 25 mls/hr Q8HR IV 08/12/24 23:30 08/19/24 22:48 25 MLS/HR Enoxaparin Sodium 40 mg DAILY SC 08/13/24 10:00 08/19/24 09:45 40 MG Vancomycin HCl 0 ml @ 0 mls/hr UD IV 08/13/24 15:30 Enteral Nutritional Formula 1,000 ml 30ML/HR GT 08/13/24 15:30 08/16/24 22:24 1,000 ML Methylprednisolone Sodium Succinate 40 mg Q12HR IV 08/14/24 22:00 08/19/24 21:40 40 MG Sildenafil Citrate 20 mg TID@08,14,20 PO 08/14/24 14:00 08/19/24 20:16 20 MG Fluconazole 100 ml @ 100 mls/hr DAILY IV 08/16/24 10:00 08/19/24 11:19 100 MLS/HR Hydralazine HCl 10 mg Q6HP PRN IV 08/15/24 15:30 08/19/24 06:22 10 MG Dexmedetomidine HCl 400 mcg/ Dextrose 100 ml @ 3.655 mls/ hr Q24H IV 08/15/24 17:30 08/18/24 17:14 5.483 MLS/HR Purified Water 100 ml Q6HR GT 08/18/24 18:00 08/19/24 23:40 100 ML Carvedilol 25 mg Q12HR PO 08/18/24 22:00 08/19/24 21:42 25 MG Vancomycin HCl 250 ml @ 200 mls/hr Q16H IV 08/19/24 21:00 08/19/24 21:01 200 MLS/HR Labetalol HCl 20 mg Q2HPRN PRN IV 08/19/24 15:15 08/19/24 23:09 20 MG Amlodipine Besylate 10 mg DAILY PO 08/20/24 10:00 Clonidine HCl 0.1 mg BID PO 08/19/24 22:00 08/19/24 21:43 0.1 MG Examination General examination- patient on mechanical ventilation, HEENT- PEERLA, no acute nasal discharge Cardiovascular- S1-S2 audible, rate and rhythm regular, no murmur Respiratory- bilateral lung crackles+, + wheezing Gastrointestinal-nontender, bowel sound+. Nondistended Musculoskeletal-swan neck deformity on bilateral hands+, edematous bilateral hands Lower extremity- mild pedal edema+ Skin- no acute rash or purpura laboratory and microbiology Laboratory Tests 08/20/24 04:45 Test 08/20/24 04:45 Range/Units Serum Glucose 183 H 74-106 mg/dL Microbiology Date/Time Source Procedure Growth Status 08/13/24 04:40 Blood Blood Culture - Final NO GROWTH AFTER 5 DAYS OF INCUBATION. Complete 08/13/24 03:00 Urine - Vigil [place] Urine Culture - Final Complete 08/13/24 02:49 Sputum Gram Stain - Final Complete 08/13/24 02:49 Sputum Respiratory Culture - Final Complete Problem List/Assessment/Plan Problem List/Assessment/Plan Assessment and plan Neurology # metabolic encephalopathy/toxic encephalopathy/hypoxic encephalopathy -status post cardiac arrest, status post CPR -patient on mechanical ventilation, on sedation -CT head very mild cortical atrophy -MRI of the brain- No acute intracranial pathology -continue current management Cardiovascular -Acute diastolic heart failure -echo 2D on 08/13/2024-LVEF 60%, concentric LVH with right ventricle and right atrial enlargement. -CAD -pulmonary hypertension -history of hypertension -hyperlipidemia -continue nebulization -continue Coreg 6.25 mg b.i.d. Respiratory -acute hypoxic respiratory failure -acute exacerbation of COPD -pulmonary hypertension -Blood culture no growth so far -Urine culture [place] 25023 colony-forming units per mL yeast -Respiratory Culture preliminary no growth -continue nebulization -methylprednisolone 20 mg IV q.12 hours -sildenafil 20 mg t.i.d. Gastrointestinal -transaminitis -monitor CMP Genitourinary/renal -HECTOR likely due to VMN -right kidney cyst in the lower pole -avoid dehydration and nephrotoxic drugs Infectious disease -? Septic shock -acute pneumonia Gram-positive versus Gram-negative -continue Zosyn and vancomycin as prescribed Hemato oncology -anemia of chronic disease -monitor CBC Endocrinology/ metabolic disorder -obesity Musculoskeletal -rheumatoid arthritis -gout -continue current management Skin or elementary -wound care consult in place Lines-left internal jugular central line and right radial artery line- 08/12/2024, took off on 08/20/2024 PICC line ETT Vigil's catheter Goals of care/advance care planning Code status ; discussed with >25 minutes PUD prophylaxis: Pantoprazole DVT prophylaxis: Lovenox Plan discussed with Dr. Hernandez, nursing staff, daughter Total time spent on patient evaluation, chart review, assessment and plan, total critical time spent including monitoring mechanical ventilation excluding procedure 53 minutes Plan discussed with: Son, Other My Orders My Orders Orders - CALI WITT RESIDENT Procedure Category Date Status Time Abg W/ Co-Ox RT 08/20/24 Logged 05:00 Chest Portable XY 08/20/24 Resulted 07:00 Dietary Evaluation Review Recommendations by RD: Protein Supplementation Comments: 1) Increase TF rate from 30 mL/hr to 35 mL/hr. Initiate Pro-Stat @ 30 mL bid. Goal rate (including Pro-Stat) will provide 1208 kcals, 77g Pro, and 1178 mL free H2O (including flushes) per 24 hrs. Goal rate will meet ~ 100% estimated daily energy needs and ~94% estimated daily protein needs 2) Initiate vitamin C @ 500 mg and zinc sulfate @ 220 mg qd for 7 days 3) Advance to cardiac diet when medically feasible, pending HEART DOCTOR approval 4) F/u with cardiology and pulmonology 5) Continue to monitor I&O, labs, and skin integrity Expected Outcomes/Goals: 1) appetite and labs to improve 2) diet to advance 3) f/u in 2-3 Interpretation of weight loss: up to 20% in 1 year Date of Service: Aug 20, 2024 Billing Provider: ROSHAN HERNANDEZ MD Common Visit Codes: [id number] CARE 30-74 MIN CALI WITT RESIDENT Aug 20, 2024 06:14 ROSHAN HERNANDEZ MD Aug 21, 2024 12:56
--- NOTE | 2024-08-20 09:47 | DVHPN2 ---
Progress Note - Dictate Date Seen: Aug 20, 2024 Medical Necessity Reason Pt with a Central, PICC or Fol: Yes The following are medically ne: Central Line, Vigil Catheter Reason for vigil catheter: Strict I&O Subjective Ms. Recinos is a 73 years old female with a history of hypertension, dyslipidemia, coronary artery disease, heart attack, congestive heart failure, asthma, COPD on home oxygen, gout, anemia, the [facility] with a chief company of shortness of breath I have seen and examined the patient, I have talked to her nurse. She is intubated, eyes are open, she is not responsive to visual threat or verbal stimuli, she does not track, she moves the jaw, but does not move the extremities She has been off the EEG and since 08/19/24 3:00 p.m. ABG, 08/12/2024: Respiratory acidosis, hypoxia WBC/HB/PLT/MCV, 08/12/2024: 7.2/11.9/302/85.7, 08/19/2024: 13.9/12.9/167/86.5 CMP, 08/12/2024: Unremarkable HGB A1c, 04/11/2024: 500 TBI/AST/ALT/AP, 08/19/2024: 0.19/61/108/86 TG/HDL/LDL/HDL, 05/2023: 101/2026/186/45 Vitamin B12, 03/2024: 1161 TSH, 03/2024: 1.39 EEG 08/13/2024: Remarkably abnormal Extremity venous study, 08/13/2024: No evidence of right or left femoropopliteal venous thrombosis. Chest x-ray, 08/12/2024: Left central venous catheter overlies the left upper chest and may be not position. Clinical correlation advised. Endotracheal tube in satisfactory position. Left central venous catheter in uncertain position Chest x-ray, 08/15/24: Hazy bilateral opacities are unchanged CT head, 08/12/2024: Very mild cortical atrophy otherwise unremarkable study CT head, 08/17/2024: No acute intracranial abnormality CTA chest, 08/13/2024: Grossly enlarged pulmonary arteries underlying pulmonary arterial hypertension is suspected no pulmonary embolus There are bilateral infiltrates in the lung bases MRI brain, 07/17/24: No acute intracranial pathology vital signs Vital Sign Date Time Temp Pulse Resp B/P (MAP) Pulse Ox O2 Delivery O2 Flow Rate FiO2 08/20/24 08:08 79 20 171/84 (113) 100 30 08/20/24 08:03 Mechanical Ventilator+ 08/20/24 08:00 98.2 98.2 Total Intake and Output 08/19/24 08/19/24 08/20/24 15:00 23:00 07:00 Intake Total 223.758 ml 630 ml 100 ml Output Total 675 ml 700 ml Balance 223.758 ml -45 ml -600 ml medications Current Medications Medications Dose Ordered Sig/Kristen Route Start Time Stop Time Status Last Admin Dose Admin Sodium Chloride 10 ml Q8HR IV 08/11/24 14:00 08/20/24 05:41 10 ML Ondansetron HCl 4 mg Q4HP PRN IV 08/11/24 13:00 Docusate Sodium 100 mg BIDPRN PRN PO 08/11/24 13:00 Acetaminophen 650 mg Q6HP PRN PO 08/11/24 13:00 Albuterol 2.5 mg Q6HWA NEB 08/11/24 18:00 08/20/24 06:48 2.5 MG Ipratropium [place] 0.5 mg Q6HWA NEB 08/11/24 18:00 08/20/24 06:48 0.5 MG Latanoprost 1 drop QPM EACHEYE 08/11/24 18:00 08/18/24 21:16 1 DROP Patient Own Medication 1 drop BID EACHEYE 08/11/24 22:00 08/19/24 21:56 1 DROP Albuterol 2.5 mg Q2HPRN PRN NEB 08/11/24 20:45 Ipratropium [place] 0.5 mg Q2HPRN PRN NEB 08/11/24 20:45 Fentanyl Citrate 250 ml @ 2.5 mls/hr Q24H IV 08/12/24 13:45 08/15/24 19:20 2.5 MLS/HR Pantoprazole Sodium 40 mg DAILY IV 08/13/24 10:00 08/19/24 09:44 40 MG Piperacillin Sod/ Tazobactam Sod 100 ml @ 25 mls/hr Q8HR IV 08/12/24 23:30 08/20/24 06:14 25 MLS/HR Enoxaparin Sodium 40 mg DAILY SC 08/13/24 10:00 08/19/24 09:45 40 MG Vancomycin HCl 0 ml @ 0 mls/hr UD IV 08/13/24 15:30 Enteral Nutritional Formula 1,000 ml 30ML/HR GT 08/13/24 15:30 08/16/24 22:24 1,000 ML Methylprednisolone Sodium Succinate 40 mg Q12HR IV 08/14/24 22:00 08/19/24 21:40 40 MG Sildenafil Citrate 20 mg TID@08,14,20 PO 08/14/24 14:00 08/19/24 20:16 20 MG Fluconazole 100 ml @ 100 mls/hr DAILY IV 08/16/24 10:00 08/19/24 11:19 100 MLS/HR Hydralazine HCl 10 mg Q6HP PRN IV 08/15/24 15:30 08/19/24 06:22 10 MG Dexmedetomidine HCl 400 mcg/ Dextrose 100 ml @ 3.655 mls/ hr Q24H IV 08/15/24 17:30 08/18/24 17:14 5.483 MLS/HR Purified Water 100 ml Q6HR GT 08/18/24 18:00 08/19/24 23:40 100 ML Carvedilol 25 mg Q12HR PO 08/18/24 22:00 08/19/24 21:42 25 MG Vancomycin HCl 250 ml @ 200 mls/hr Q16H IV 08/19/24 21:00 08/19/24 21:01 200 MLS/HR Labetalol HCl 20 mg Q2HPRN PRN IV 08/19/24 15:15 08/20/24 06:20 20 MG Amlodipine Besylate 10 mg DAILY PO 08/20/24 10:00 Clonidine HCl 0.1 mg BID PO 08/19/24 22:00 08/19/24 21:43 0.1 MG objective The patient is well-nourished and well-developed with no distress. The patient is intubated MENTAL STATUS: Subjective, CRANIAL NERVES: Pupils are equal, round and reactive. Eyes are neutral position, spontaneous blinking. No signs of facial weakness. There are gagging or coughing reflexes SENSATION: Responses to pain stimuli. MOTOR: Normal tone in the upper and lower extremity. Normal muscle bulk. No fasciculations. No spontaneous movement. REFLEXES: Deep tendon reflexes are symmetrical. No pathological reflexes. CEREBELLAR/COORDINATION: Deferred GAIT/STATION: deferred. laboratory and microbiology Laboratory Tests 08/20/24 04:45 Test 08/20/24 04:45 Range/Units Serum Glucose 183 H 74-106 mg/dL Problem List Coma, resolved Hypoxic encephalopathy Metabolic encephalopathy Toxic encephalopathy ? Permanent vegetative status Cardiopulmonary arrest Respiratory failure Hypoxia Status post CPR Sepsis Pneumonia Acidosis Seizure-like activity to rule out seizure attack Reported anisocoria with right-sided slightly weaker on 08/14/2024, evident physical examination on 08/19/2024 Assessment/Plan Monitoring Supportive treatment ICU care Follow-up labs Respiratory support/vent management Stabilize vitals Antibiotics Oxygen DVT prophylaxis GI prophylaxis Gradually wean off sedation as tolerated More recommendation per clinical course What try to talk to her daughterlv, This medical document was created using an electronic medical record system with [employer] dictation system. Although this document has been carefully reviewed, there may still be some phonetic and typographical errors. These areas are purely typographical due to imperfections of the software programs, and do not reflect any compromise in the patient's medical care. Prognosis guarded Dietary Evaluation Review Recommendations by RD: Protein Supplementation Comments: 1) Increase TF rate from 30 mL/hr to 35 mL/hr. Initiate Pro-Stat @ 30 mL bid. Goal rate (including Pro-Stat) will provide 1208 kcals, 77g Pro, and 1178 mL free H2O (including flushes) per 24 hrs. Goal rate will meet ~ 100% estimated daily energy needs and ~94% estimated daily protein needs 2) Initiate vitamin C @ 500 mg and zinc sulfate @ 220 mg qd for 7 days 3) Advance to cardiac diet when medically feasible, pending [employer] approval 4) F/u with cardiology and pulmonology 5) Continue to monitor I&O, labs, and skin integrity Expected Outcomes/Goals: 1) appetite and labs to improve 2) diet to advance 3) f/u in 2-3 Interpretation of weight loss: up to 20% in 1 year Plan discussed with: Other Critical Care Time(min): 30 PATRIZIA SHERWOOD MD Aug 20, 2024 09:47
[2024-08-20] MEDS: IPRATROPIUM BROM 0.5 MG/2.5ML INH SOL NEB PRN (10:09)
[2024-08-20] MEDS: ALBUTEROL SULF 2.5 MG/0.5ML(0.5%) NEB SOLN NEB PRN (10:09)
[2024-08-20] MEDS: amLODIPine BESYLATE 5 MG TAB PO SCH (11:44)
[2024-08-20 17:45] LABS: INR 1.13 (0.9-1.15); Partial Thromboplastin Time 28.5 SEC (24.5-34.5); Prothrombin Time 11.8 sec (9.3-11.8)
[2024-08-20] MEDS: LIDOCAINE 1% (LOCAL ANESTH.) PF 5ml SDV ID ONE (19:00)
--- NOTE | 2024-08-20 19:47 | DVH ---
EXAM: XY CHEST PORTABLE TECHNIQUE: Single frontal chest radiograph CLINICAL HISTORY: PICC LINE PLACEMENT. COMPARISON: XY CHEST PORTABLE on DOS: 08/20/24, CT angio chest from 07/04/2024 Findings/Impression: Frontal chest radiograph demonstrates that the patient is rotated to the left. no acute osseous or pace perficial soft tissue abnormalities. Endotracheal tube terminates 5.2 cm from the olman. Enteric tube is overlying the plane of the stoma ch. Left-sided IJ catheter and left upper extremity PICC are located within a left-sided, duplicated SVC. The trachea is midline. Cardiomegaly with enlarged pulmonary arteries. Coarsened interstitial markings. No pneumothorax, pleural effusions, or consolidations.
[2024-08-20] MEDS: SODIUM CHLOR 0.9% PF (SALINE LOCK) 10ML VIAL/SYR IV SCH (22:00)
[2024-08-20] MEDS: methylPREDNISolone SOD SUCC 40 MG/ML VL IV SCH (22:08)
[2024-08-21] VITALS (109 sets, daily range): BP systolic 88–149; BP diastolic 41–80; PULSE 36–90; RESP 14–24; TEMP 97.7–98.8; O2SAT 92–100
--- NOTE | 2024-08-21 07:42 | DVHPNRES ---
Progress Note Date Seen: Aug 21, 2024 Resident Creating Document: CALI WITT Medical Necessity Reason Pt with a Central, PICC or Fol: Yes The following are medically ne: Central Line, Vigil Catheter Reason for vigil catheter: Strict I&O Subjective Review of Systems Patient had several visits over the year in this hospital. In July 17, 2024, April 16, 2024, June 16, 2023, February 2023, August 14, 2022, September 2012, August 2012, August 2012 Code assist was called on 08/12/2024-patient was found to have unresponsive, stiffness of the bilateral upper and lower extremity, bradycardia, agonal respiration. Code assist was converted to code blue were severe was initiated by bedside RN. Status post CPR. ROSC 20 minutes Patient was intubated on 08/12/2024. Left internal jugular central line was placed on 08/12/2024 Bronchoscopy was done on 08/12/2024-impression- Left lower lobe atelectasis due to mucous plugging. Mucous plugging from L6-L10 and R1-R3 Echo 2D- 04/12/2024 revealed an LVEF of 50% with moderate LVH, RV and left atrium enlargement. The patient also underwent a recent right and left cardiac catheterization on 12/2023 revealing no significant coronary artery disease, elevated left ventricular end-diastolic pressures indicating diastolic heart failure, and pulmonary hypertension deemed to be multifactorial primarily secondary to diastolic heart failure in addition to chronic lung processes for which she was initiated on Sildenafil therapy on 04/2024. Patient had nuclear stress test in -03/19/2023 negative for ischemia, LVEF 59% PMH-heart failure, COPD, asthma, pulmonary hypertension, CAD, NV, hypertension, hyperlipidemia, diabetes mellitus type 2, COPD, asthma, gout, rheumatoid arthritis, anemia PSH- tubal ligation, right foot surgery, tonsillectomy, bilateral total knee replacement, right eye surgery, Allergy- , levofloxacin, ceftriaxone Personal History/ Social History- No history of smoking, alcohol and other drug abuse Patient was seen today for clinical evaluation. Labs and chart reviewed. Overnight patient's BP ranging from 99-143/44-88, Pulse 53-87, temperature 97.4- 98.9 I/O , intake 1298, output 950, negative balance 348 Patient off sedation or vasopressor, on eye-opening but no communication or defensive reflects mechanism. Patient still on ventilator, plan is to do a tracheostomy Patient was having bradycardia, blood pressure also trending down time to time, reduced Coreg from 25to 12.5 mg b.i.d. Arterial line and central line was removed Lab workup EKG -AF ABG -pH 7.46, pCO2 38.7, PO2 80.0, bicarbonate 27.1 CXR no significant change WBC 7.1> 7.2> 14.1> 11.4> 9.3> 12.1>? 12.9 >12.9> 15.0> 13.9> 15.5> 16.1, Hemoglobin 13.1> 11.9> 10.8> 11.0> 10.5> 11.9> 12.5> 13.4> 12.9> 12.7> 11.9 platelet 276>> 302 264> 252> 229> 217> 228> 242> 295> 167> 221> 197 Sodium 137> 142> 147> 146> 148> 148> 143> 148>> 143 >140> 139> 140> 137> 138 Potassium> 3.9> 4.0> 3.7> 3.6> 3.7> 3.7> 3.5> 3.8> 3.5> 3.8> 3.9> 3.2> 3.2> 3.6> 3.7 Serum creatinine 0.92> 0.87> 1.22> 1.21> 1.19> 0.98> 0.78> 0.81>0.88> 0.74> 0.65> 0.74 BUN 18> 31> 26> 29> 26> 22> 24> 31> 23> 19> 19 Serum> bilirubin 0.5> 0.6>0.5> 0.5 0.8> 1.2> 0.9 > 1.0> 0.8 AST> 20 88> 50> 37> 43> 49> 61> 33> 28 ALT 17> 91> 69> 56> 58> 70> 108> 80> 63 Blood culture no growth so far Urine culture <62850 CFU Yeast Respiratory Culture preliminary no growth Patient on antibiotic Zosyn and vancomycin Provider spoke to patient's daughter Ms. Nieves Levy,-[phone], discussed patient's current medical condition, plan of care, answered her questions Objective vital signs Vital Sign Date Time Temp Pulse Resp B/P (MAP) Pulse Ox O2 Delivery O2 Flow Rate FiO2 08/21/24 06:45 75 18 111/55 (73) 96 08/21/24 06:03 30 08/21/24 06:00 Mechanical Ventilator+ 08/21/24 04:00 97.7 97.7 Total Intake and Output 08/20/24 08/20/24 08/21/24 15:00 23:00 07:00 Intake Total 100 ml 380 ml 818 ml Output Total 0 ml 500 ml 450 ml Balance 100 ml -120 ml 368 ml medications Current Medications Medications Dose Ordered Sig/Kristen Route Start Time Stop Time Status Last Admin Dose Admin Sodium Chloride 10 ml Q8HR IV 08/11/24 14:00 08/21/24 06:11 10 ML Ondansetron HCl 4 mg Q4HP PRN IV 08/11/24 13:00 Docusate Sodium 100 mg BIDPRN PRN PO 08/11/24 13:00 Acetaminophen 650 mg Q6HP PRN PO 08/11/24 13:00 Albuterol 2.5 mg Q6HWA NEB 08/11/24 18:00 08/21/24 06:02 2.5 MG Ipratropium [place] 0.5 mg Q6HWA NEB 08/11/24 18:00 08/21/24 06:03 0.5 MG Latanoprost 1 drop QPM EACHEYE 08/11/24 18:00 08/18/24 21:16 1 DROP Patient Own Medication 1 drop BID EACHEYE 08/11/24 22:00 08/20/24 22:09 1 DROP Albuterol 2.5 mg Q2HPRN PRN NEB 08/11/24 20:45 08/20/24 10:09 2.5 MG Ipratropium [place] 0.5 mg Q2HPRN PRN NEB 08/11/24 20:45 08/20/24 10:09 0.5 MG Fentanyl Citrate 250 ml @ 2.5 mls/hr Q24H IV 08/12/24 13:45 08/15/24 19:20 2.5 MLS/HR Pantoprazole Sodium 40 mg DAILY IV 08/13/24 10:00 08/20/24 10:29 40 MG Piperacillin Sod/ Tazobactam Sod 100 ml @ 25 mls/hr Q8HR IV 08/12/24 23:30 08/21/24 06:10 25 MLS/HR Enoxaparin Sodium 40 mg DAILY SC 08/13/24 10:00 08/20/24 10:36 40 MG Vancomycin HCl 0 ml @ 0 mls/hr UD IV 08/13/24 15:30 Enteral Nutritional Formula 1,000 ml 30ML/HR GT 08/13/24 15:30 08/16/24 22:24 1,000 ML Sildenafil Citrate 20 mg TID@08,14,20 PO 08/14/24 14:00 08/20/24 20:53 20 MG Fluconazole 100 ml @ 100 mls/hr DAILY IV 08/16/24 10:00 08/20/24 10:29 100 MLS/HR Hydralazine HCl 10 mg Q6HP PRN IV 08/15/24 15:30 08/19/24 06:22 10 MG Dexmedetomidine HCl 400 mcg/ Dextrose 100 ml @ 3.655 mls/ hr Q24H IV 08/15/24 17:30 08/18/24 17:14 5.483 MLS/HR Purified Water 100 ml Q6HR GT 08/18/24 18:00 08/21/24 06:10 100 ML Carvedilol 25 mg Q12HR PO 08/18/24 22:00 08/20/24 22:07 25 MG Vancomycin HCl 250 ml @ 200 mls/hr Q16H IV 08/19/24 21:00 08/21/24 04:55 200 MLS/HR Labetalol HCl 20 mg Q2HPRN PRN IV 08/19/24 15:15 08/20/24 06:20 20 MG Amlodipine Besylate 10 mg DAILY PO 08/20/24 10:00 08/20/24 11:44 10 MG Clonidine HCl 0.1 mg BID PO 08/19/24 22:00 08/20/24 22:08 0.1 MG Methylprednisolone Sodium Succinate 20 mg Q12HR IV 08/20/24 22:00 08/20/24 22:08 20 MG Sodium Chloride 10 ml QSHIFT@10,22 IV 08/20/24 22:00 Examination General examination- patient on mechanical ventilation, HEENT- PEERLA, no acute nasal discharge Cardiovascular- S1-S2 audible, rate and rhythm regular, no murmur Respiratory- bilateral lung crackles+, + wheezing Gastrointestinal-nontender, bowel sound+. Nondistended Musculoskeletal-swan neck deformity on bilateral hands+, edematous bilateral hands Lower extremity- No leg edema Skin- no acute rash or purpura laboratory and microbiology Laboratory Tests 08/20/24 04:45 Test 08/20/24 04:45 Range/Units Serum Glucose 183 H 74-106 mg/dL Microbiology Date/Time Source Procedure Growth Status 08/13/24 04:40 Blood Blood Culture - Final NO GROWTH AFTER 5 DAYS OF INCUBATION. Complete 08/13/24 03:00 Urine - Vigil [place] Urine Culture - Final Complete 08/13/24 02:49 Sputum Gram Stain - Final Complete 08/13/24 02:49 Sputum Respiratory Culture - Final Complete Problem List/Assessment/Plan Problem List/Assessment/Plan Assessment and plan Neurology # metabolic encephalopathy/toxic encephalopathy/hypoxic encephalopathy -status post cardiac arrest, status post CPR -patient on mechanical ventilation, -CT head very mild cortical atrophy -MRI of the brain- No acute intracranial pathology -continue current management Cardiovascular -Acute diastolic heart failure -New One set AF patient on DVT prophylaxis -paroxysmal Bradycardia -echo 2D on 08/13/2024-LVEF 60%, concentric LVH with right ventricle and right atrial enlargement. -CAD -pulmonary hypertension -history of hypertension -hyperlipidemia -continue nebulization -continue Coreg 12.5 mg b.i.d. Respiratory -acute hypoxic respiratory failure -acute exacerbation of COPD -pulmonary hypertension -failed CPAP trial on 08/18/2024 -Blood culture no growth so far -Urine culture less [place] 76272 colony-forming units per mL yeast -Respiratory Culture preliminary no growth -continue nebulization -methylprednisolone 20 mg IV q.12 hours -sildenafil 20 mg t.i.d. Gastrointestinal -transaminitis -monitor CMP Genitourinary/renal -HECTOR likely due to VMN -right kidney cyst in the lower pole -avoid dehydration and nephrotoxic drugs Infectious disease -? Septic shock -acute pneumonia Gram-positive versus Gram-negative -continue Zosyn and vancomycin as prescribed Hemato oncology -anemia of chronic disease -monitor CBC Endocrinology/ metabolic disorder -obesity Musculoskeletal -rheumatoid arthritis -gout -continue current management Skin or elementary -wound care consult in place PICC line ETT Vigil's catheter Goals of care/advance care planning Code status ; discussed with >25 minutes PUD prophylaxis: Pantoprazole DVT prophylaxis: Lovenox Plan discussed with Dr. Hernandez, nursing staff, daughter Total time spent on patient evaluation, chart review, assessment and plan, total critical time spent including monitoring mechanical ventilation excluding procedure 61 minutes Plan discussed with: Daughter (RN ), Other (RN) Dietary Evaluation Review Recommendations by RD: Protein Supplementation Comments: 1) Increase TF rate from 30 mL/hr to 35 mL/hr. Initiate Pro-Stat @ 30 mL bid. Goal rate (including Pro-Stat) will provide 1208 kcals, 77g Pro, and 1178 mL free H2O (including flushes) per 24 hrs. Goal rate will meet ~ 100% estimated daily energy needs and ~94% estimated daily protein needs 2) Initiate vitamin C @ 500 mg and zinc sulfate @ 220 mg qd for 7 days 3) Advance to cardiac diet when medically feasible, pending CARE SERVICES MANAGER approval 4) F/u with cardiology and pulmonology 5) Continue to monitor I&O, labs, and skin integrity Expected Outcomes/Goals: 1) appetite and labs to improve 2) diet to advance 3) f/u in 2-3 Interpretation of weight loss: up to 20% in 1 year Date of Service: Aug 21, 2024 Billing Provider: ROSHAN HERNANDEZ MD Common Visit Codes: 85132-IKUSOMQO CARE 30-74 MIN CALI WITT RESIDENT Aug 21, 2024 07:42 ROSHAN HERNANDEZ MD Aug 23, 2024 20:08
[2024-08-21 08:05] LABS: Base Excess 3.2 mmol/L (-2.0-3.0)
--- NOTE | 2024-08-21 08:17 | DVH ---
EXAM: XY CHEST PORTABLE Indication: Re-eval left sided PICC tip location Technique: Single frontal view of the chest was obtained Comparison: XY CHEST PORTABLE on DOS: 08/20/24, XY CHEST PORTABLE on DOS: 08/20/24, XY CHEST PORTABLE o n DOS: 08/19/24, XY CHEST PORTABLE on DOS: 08/16/24, XY CHEST PORTABLE on DOS: 08/15/24 FINDINGS: Lines and Tubes: Endotracheal tube projects 5 cm above the olman. Enteric tube tip projects over th e expected region stomach. Left-sided IJ catheter and left upper extremity PICC are located within a left-sided, duplicated SVC. Lungs: Pulmonary vascular congestion. Pleura: No effusion. No pneumothorax. Cardiomediastinal contours: Cardiomegaly. Atherosclerotic vascular calcifications of the thoracic aor ta are noted. Bones: No acute osseous abnormality. IMPRESSION: No significant change compared to prior exam.
[2024-08-21 08:25] LABS: Basophils # (auto) 0 10 ^3/uL (0-0.2); Basophils % (auto) 0.1 % (0.0-2.0); Eosinophils # (auto) 0 10 ^3/uL (0-0.8); Hematocrit 36.7 % (36.0-46.0); Hemoglobin 11.9 g/dL (12.2-16.2); Lymphocytes # (auto) 0.6 10 ^3/uL (0.4-5.4); Lymphocytes % (auto) 3.6 % (10.0-50.0); Mean Corpuscular Hemoglobin 27.3 pg (28.0-32.0); Mean Corpuscular Hgb Conc. 32.3 g/dL (32.0-36.0); Mean Corpuscular Volume 84.6 fL (80.0-100.0); Monocytes # (auto) 0.8 10 ^3/uL (0-1.3); Monocytes % (auto) 5.2 % (0.0-12.0); Neutrophils # (auto) 14.7 10 ^3/uL (1.6-8.6); Neutrophils % (auto) 91.1 % (37.0-80.0); Platelet Count (auto) 197 10^3/uL (140-450); Red Blood Cells 4.34 10^6/uL (4.0-5.20); Red Cell Distribution Width 14.7 % (11.8-14.3); White Blood Cell 16.1 10^3/uL (4.4-10.8)
[2024-08-21 08:40] LABS: Albumin 3.6 g/dL (3.2-4.8); Alkaline Phosphatase 77 U/L (46-116); Anion Gap 11 (5-15); Aspartate Aminotransferase 28 U/L (13-40); BUN/Creatinine Ratio 25.7 (10.0-20.0); Bilirubin, Total 0.8 mg/dL (0.2-1.0); Blood Urea Nitrogen 19 mg/dL (9-23); Calcium 9.2 mg/dL (8.7-10.4); Carbon Dioxide 29 mmol/L (20-31); Chloride 98 mmol/L (98-107); Magnesium 2.2 mg/dL (1.6-2.6); Potassium 3.7 mmol/L (3.5-5.1); Sodium 138 mmol/L (136-145); Total Protein 5.8 g/dL (5.7-8.2)
[2024-08-21 08:51] LABS: Alanine Aminotransferase 63 U/L (7-40); Glucose 197 mg/dL (74-106)
--- NOTE | 2024-08-21 10:41 | DVHPN2 ---
Progress Note - Dictate Date Seen: Aug 21, 2024 Medical Necessity Reason Pt with a Central, PICC or Fol: Yes The following are medically ne: Central Line, Vigil Catheter Reason for vigil catheter: Strict I&O Subjective Ms. Recinos is a 73 years old female with a history of hypertension, dyslipidemia, coronary artery disease, heart attack, congestive heart failure, asthma, COPD on home oxygen, gout, anemia, the patient was admitted found her prison on 08/11/2024 with a chief company of shortness of breath I have seen and examined the patient, I have talked to her nurse. She is intubated, eyes are closed (was open earlier), she is not responsive to visual threat, sudden loud noise/verbal stimuli, she does not move the extremities She has been off sedation since 08/19/24 3:00 p.m. ABG, 08/12/2024: Respiratory acidosis, hypoxia WBC/HB/PLT/MCV, 08/12/2024: 7.2/11.9/302/85.7, 08/19/2024: 13.9/12.9/167/86.5 CMP, 08/12/2024: Unremarkable HGB A1c, 04/11/2024: 500 TBI/AST/ALT/AP, 08/19/2024: 0.19/61/108/86 TG/HDL/LDL/HDL, 05/2023: 101/6/186/45 Vitamin B12, 03/2024: 1161 TSH, 03/2024: 1.39 EEG 08/13/2024: Remarkably abnormal Extremity venous study, 08/13/2024: No evidence of right or left femoropopliteal venous thrombosis. Chest x-ray, 08/12/2024: Left central venous catheter overlies the left upper chest and may be not position. Clinical correlation advised. Endotracheal tube in satisfactory position. Left central venous catheter in uncertain position Chest x-ray, 08/15/24: Hazy bilateral opacities are unchanged CT head, 08/12/2024: Very mild cortical atrophy otherwise unremarkable study CT head, 08/17/2024: No acute intracranial abnormality CTA chest, 08/13/2024: Grossly enlarged pulmonary arteries underlying pulmonary arterial hypertension is suspected no pulmonary embolus There are bilateral infiltrates in the lung bases MRI brain, 07/17/24: No acute intracranial pathology vital signs Vital Sign Date Time Temp Pulse Resp B/P (MAP) Pulse Ox O2 Delivery O2 Flow Rate FiO2 08/21/24 10:30 73 15 122/56 (78) 97 08/21/24 10:00 30 08/21/24 09:56 Mechanical Ventilator+ 08/21/24 08:00 98.1 98.1 Total Intake and Output 08/20/24 08/20/24 08/21/24 15:00 23:00 07:00 Intake Total 100 ml 380 ml 843 ml Output Total 0 ml 500 ml 450 ml Balance 100 ml -120 ml 393 ml medications Current Medications Medications Dose Ordered Sig/Kristen Route Start Time Stop Time Status Last Admin Dose Admin Sodium Chloride 10 ml Q8HR IV 08/11/24 14:00 08/21/24 06:11 10 ML Ondansetron HCl 4 mg Q4HP PRN IV 08/11/24 13:00 Docusate Sodium 100 mg BIDPRN PRN PO 08/11/24 13:00 Acetaminophen 650 mg Q6HP PRN PO 08/11/24 13:00 Albuterol 2.5 mg Q6HWA NEB 08/11/24 18:00 08/21/24 06:02 2.5 MG Ipratropium [place] 0.5 mg Q6HWA NEB 08/11/24 18:00 08/21/24 06:03 0.5 MG Latanoprost 1 drop QPM EACHEYE 08/11/24 18:00 08/18/24 21:16 1 DROP Patient Own Medication 1 drop BID EACHEYE 08/11/24 22:00 08/20/24 22:09 1 DROP Albuterol 2.5 mg Q2HPRN PRN NEB 08/11/24 20:45 08/20/24 10:09 2.5 MG Ipratropium [place] 0.5 mg Q2HPRN PRN NEB 08/11/24 20:45 08/20/24 10:09 0.5 MG Fentanyl Citrate 250 ml @ 2.5 mls/hr Q24H IV 08/12/24 13:45 08/15/24 19:20 2.5 MLS/HR Pantoprazole Sodium 40 mg DAILY IV 08/13/24 10:00 08/21/24 08:47 40 MG Piperacillin Sod/ Tazobactam Sod 100 ml @ 25 mls/hr Q8HR IV 08/12/24 23:30 08/21/24 06:10 25 MLS/HR Enoxaparin Sodium 40 mg DAILY SC 08/13/24 10:00 08/21/24 08:47 40 MG Vancomycin HCl 0 ml @ 0 mls/hr UD IV 08/13/24 15:30 Enteral Nutritional Formula 1,000 ml 30ML/HR GT 08/13/24 15:30 08/16/24 22:24 1,000 ML Sildenafil Citrate 20 mg TID@08,14,20 PO 08/14/24 14:00 08/20/24 20:53 20 MG Fluconazole 100 ml @ 100 mls/hr DAILY IV 08/16/24 10:00 08/21/24 08:46 100 MLS/HR Hydralazine HCl 10 mg Q6HP PRN IV 08/15/24 15:30 08/19/24 06:22 10 MG Dexmedetomidine HCl 400 mcg/ Dextrose 100 ml @ 3.655 mls/ hr Q24H IV 08/15/24 17:30 08/18/24 17:14 5.483 MLS/HR Purified Water 100 ml Q6HR GT 08/18/24 18:00 08/21/24 06:10 100 ML Carvedilol 25 mg Q12HR PO 08/18/24 22:00 08/21/24 10:09 25 MG Labetalol HCl 20 mg Q2HPRN PRN IV 08/19/24 15:15 08/20/24 06:20 20 MG Amlodipine Besylate 10 mg DAILY PO 08/20/24 10:00 08/21/24 08:48 10 MG Clonidine HCl 0.1 mg BID PO 08/19/24 22:00 08/21/24 10:09 0.1 MG Methylprednisolone Sodium Succinate 20 mg Q12HR IV 08/20/24 22:00 08/21/24 08:47 20 MG Sodium Chloride 10 ml QSHIFT@10,22 IV 08/20/24 22:00 08/21/24 08:47 10 ML Vancomycin HCl 250 ml @ 200 mls/hr Q12H IV 08/21/24 17:00 objective The patient is well-nourished and well-developed with no distress. The patient is intubated MENTAL STATUS: Subjective, CRANIAL NERVES: Pupils are equal, round and reactive. Eyes are neutral position, spontaneous blinking. No signs of facial weakness. There are gagging or coughing reflexes SENSATION: Responses to pain stimuli. MOTOR: Normal tone in the upper and lower extremity. Normal muscle bulk. No fasciculations. No spontaneous movement. REFLEXES: Deep tendon reflexes are symmetrical. No pathological reflexes. CEREBELLAR/COORDINATION: Deferred GAIT/STATION: deferred. laboratory and microbiology Laboratory Tests 08/21/24 04:31 Test 08/21/24 04:31 Range/Units Serum Glucose 197 H 74-106 mg/dL Problem List Coma, resolved Hypoxic encephalopathy Metabolic encephalopathy Toxic encephalopathy ? Permanent vegetative status Cardiopulmonary arrest Respiratory failure Hypoxia Status post CPR Sepsis Pneumonia Acidosis Seizure-like activity to rule out seizure attack Reported anisocoria with right-sided slightly weaker on 08/14/2024, evident physical examination on 08/19/2024 Assessment/Plan Monitoring Supportive treatment ICU care Follow-up labs Respiratory support/vent management Stabilize vitals Antibiotics Oxygen DVT prophylaxis GI prophylaxis Gradually wean off sedation as tolerated More recommendation per clinical course Will try to talk to her daughter, lv, This medical document was created using an electronic medical record system with [employer] dictation system. Although this document has been carefully reviewed, there may still be some phonetic and typographical errors. These areas are purely typographical due to imperfections of the software programs, and do not reflect any compromise in the patient's medical care. Prognosis guarded Dietary Evaluation Review Recommendations by RD: Protein Supplementation Comments: 1) Increase TF rate from 30 mL/hr to 35 mL/hr. Initiate Pro-Stat @ 30 mL bid. Goal rate (including Pro-Stat) will provide 1208 kcals, 77g Pro, and 1178 mL free H2O (including flushes) per 24 hrs. Goal rate will meet ~ 100% estimated daily energy needs and ~94% estimated daily protein needs 2) Initiate vitamin C @ 500 mg and zinc sulfate @ 220 mg qd for 7 days 3) Advance to cardiac diet when medically feasible, pending LICENSED EMBALMER SUPERVISOR approval 4) F/u with cardiology and pulmonology 5) Continue to monitor I&O, labs, and skin integrity Expected Outcomes/Goals: 1) appetite and labs to improve 2) diet to advance 3) f/u in 2-3 Interpretation of weight loss: up to 20% in 1 year Plan discussed with: PATRIZIA Gottlieb MD Aug 21, 2024 10:41
[2024-08-21] MEDS ORDERED: Jevity 1.2 Cal/Fiber 1 Liter GT SCH (13:00)
[2024-08-21] MEDS: VANCOMYCIN 1GM/200ML PM 250 ML IV SCH (17:02)
[2024-08-21] MEDS: CARVEDILOL 12.5 MG TAB PO SCH (22:32)
[2024-08-22] VITALS (114 sets, daily range): BP systolic 106–135; BP diastolic 48–90; PULSE 49–94; RESP 15–35; TEMP 97.5–98.6; O2SAT 94–100
[2024-08-22 05:23] LABS: Albumin 3.5 g/dL (3.2-4.8); Alkaline Phosphatase 75 U/L (46-116); Anion Gap 7 (5-15); Aspartate Aminotransferase 27 U/L (13-40); BUN/Creatinine Ratio 28.7 (10.0-20.0); Calcium 9.2 mg/dL (8.7-10.4); Carbon Dioxide 30 mmol/L (20-31); Chloride 102 mmol/L (98-107); Magnesium 2.3 mg/dL (1.6-2.6); Sodium 139 mmol/L (136-145)
[2024-08-22 05:24] LABS: Alanine Aminotransferase 53 U/L (7-40); Blood Urea Nitrogen 25 mg/dL (9-23); Glucose 243 mg/dL (74-106); Potassium 3.5 mmol/L (3.5-5.1); Total Protein 5.6 g/dL (5.7-8.2)
[2024-08-22 05:25] LABS: Bilirubin, Total 0.7 mg/dL (0.2-1.0)
--- NOTE | 2024-08-22 05:56 | DVH ---
EXAM: XR Chest, 1 View CLINICAL INDICATION: PNA TECHNIQUE: Frontal view of the chest. COMPARISON: XY CHEST PORTABLE on DOS: 08/21/24, XY CHEST PORTABLE on DOS: 08/20/24, XY CHEST PORTABLE on DOS: 08/20/24, XY CHEST PORTABLE on DOS: 08/19/24, XY CHEST PORTABLE on DOS: 08/16/24 FINDINGS: LUNGS AND PLEURAL SPACES: Pulmonary congestion and edema. Pneumonia cannot be excluded. No pneumot horax. HEART: Unremarkable. No cardiomegaly. MEDIASTINUM: Unremarkable. Normal mediastinal contour. BONES/JOINTS: Unremarkable. No acute fracture. TUBES, LINES AND DEVICES: The endotracheal tube (ETT) is in satisfactory position. OTHER FINDINGS: . Enteric below. IMPRESSION: Pulmonary congestion and edema. Pneumonia cannot be excluded.
--- NOTE | 2024-08-22 05:58 | DVH ---
Exam: US US GUIDED VASCULAR ACCESS Date: 08/21/2024 10:16 AM Clinical History: picc line placement Comparison: None Findings: Targeted sonographic evaluation of the right basilic vein was obtained utilizing grayscale and color Doppler imaging. IMPRESSION: Sonographic assistance for central line placement. Please refer to procedural report for detailed fin dings.
--- NOTE | 2024-08-22 07:00 | DVHPNRES ---
Progress Note Date Seen: Aug 22, 2024 Resident Creating Document: CALI WITT Medical Necessity Reason Pt with a Central, PICC or Fol: Yes The following are medically ne: Central Line, Vigil Catheter Reason for vigil catheter: Strict I&O Subjective Review of Systems Patient had several visits over the year in this hospital. In July 17, 2024, April 16, 2024, June 16, 2023, February 2023, August 14, 2022, September 2012, August 2012, August 2012 Code assist was called on 08/12/2024-patient was found to have unresponsive, stiffness of the bilateral upper and lower extremity, bradycardia, agonal respiration. Code assist was converted to code blue were severe was initiated by bedside RN. Status post CPR. ROSC 20 minutes Patient was intubated on 08/12/2024. Left internal jugular central line was placed on 08/12/2024 Bronchoscopy was done on 08/12/2024-impression- Left lower lobe atelectasis due to mucous plugging. Mucous plugging from L6-L10 and R1-R3 Echo 2D- 04/12/2024 revealed an LVEF of 50% with moderate LVH, RV and left atrium enlargement. The patient also underwent a recent right and left cardiac catheterization on 12/2023 revealing no significant coronary artery disease, elevated left ventricular end-diastolic pressures indicating diastolic heart failure, and pulmonary hypertension deemed to be multifactorial primarily secondary to diastolic heart failure in addition to chronic lung processes for which she was initiated on Sildenafil therapy on 04/2024. Patient had nuclear stress test in -03/19/2023 negative for ischemia, LVEF 59% PMH-heart failure, COPD, asthma, pulmonary hypertension, CAD, OR, hypertension, hyperlipidemia, diabetes mellitus type 2, COPD, asthma, gout, rheumatoid arthritis, anemia PSH- tubal ligation, right foot surgery, tonsillectomy, bilateral total knee replacement, right eye surgery, Allergy- , levofloxacin, ceftriaxone Personal History/ Social History- No history of smoking, alcohol and other drug abuse Patient was seen today for clinical evaluation. Labs and chart reviewed. Overnight patient's BP ranging from 112-125/52-71, pulse 49-71, temperature with a 7 point 5-98.5 I/O , intake 1728, output 1200, negative balance 528 Patient is off sedatives or vasopressor. Patient is awake but not communicative Ordered Lasix 20 mg IV b.i.d. Plan is to do a CPAP trial tomorrow a.m if patient is awake and alert and communicative and patient is able to protect her airway Ordered fecal occult blood test as hemoglobin dropped down to 9.5 Lab workup On monitor patient still running AFib, ordered cardiology consult ABG -PH 7.45, pCO2 38, PO2 76.6, bicarbonate 26.5 CXR no significant change WBC 7.1> 7.2> 14.1> 11.4> 9.3> 12.1>? 12.9 >12.9> 15.0> 13.9> 15.5> 16.1> 14.4 Hemoglobin 13.1> 11.9> 10.8> 11.0> 10.5> 11.9> 12.5> 13.4> 12.9> 12.7> 11.9> 9.5- platelet 276>> 302 264> 252> 229> 217> 228> 242> 295> 167> 221> 197> 148 Sodium 137> 142> 147> 146> 148> 148> 143> 148>> 143 >140> 139> 140> 137> 138> one 139 Potassium> 3.9> 4.0> 3.7> 3.6> 3.7> 3.7> 3.5> 3.8> 3.5> 3.8> 3.9> 3.2> 3.2> 3.6> 3.7> 3.5 Serum creatinine 0.92> 0.87> 1.22> 1.21> 1.19> 0.98> 0.78> 0.81>0.88> 0.74> 0.65> 0.74> 0.84 BUN 18> 31> 26> 29> 26> 22> 24> 31> 23> 19> 19> 25 Serum> bilirubin 0.5> 0.6>0.5> 0.5 0.8> 1.2> 0.9 > 1.0> 0.8> 0.7 AST> 20 88> 50> 37> 43> 49> 61> 33> 28> 27 ALT 17> 91> 69> 56> 58> 70> 108> 80> 63> 53 Blood culture no growth so far Urine culture <[id number] CFU Yeast Respiratory Culture preliminary no growth Patient on antibiotic Zosyn and vancomycin Provider spoke to patient's daughter Ms. Nieves Levy,-[phone], discussed patient's current medical condition, plan of care, answered her questions Objective vital signs Vital Sign Date Time Temp Pulse Resp B/P (MAP) Pulse Ox O2 Delivery O2 Flow Rate FiO2 08/22/24 06:45 58 19 113/62 (79) 97 08/22/24 06:43 30 08/22/24 06:00 Mechanical Ventilator+ 08/22/24 04:00 98.0 98.0 Total Intake and Output 08/21/24 08/21/24 08/22/24 15:00 23:00 07:00 Intake Total 200 ml 785 ml 718 ml Output Total 450 ml 750 ml Balance 200 ml 335 ml -32 ml medications Current Medications Medications Dose Ordered Sig/Kristen Route Start Time Stop Time Status Last Admin Dose Admin Sodium Chloride 10 ml Q8HR IV 08/11/24 14:00 08/22/24 05:52 10 ML Ondansetron HCl 4 mg Q4HP PRN IV 08/11/24 13:00 Docusate Sodium 100 mg BIDPRN PRN PO 08/11/24 13:00 Acetaminophen 650 mg Q6HP PRN PO 08/11/24 13:00 Albuterol 2.5 mg Q6HWA NEB 08/11/24 18:00 08/22/24 06:43 2.5 MG Ipratropium [place] 0.5 mg Q6HWA NEB 08/11/24 18:00 08/22/24 06:43 0.5 MG Latanoprost 1 drop QPM EACHEYE 08/11/24 18:00 08/18/24 21:16 1 DROP Patient Own Medication 1 drop BID EACHEYE 08/11/24 22:00 08/21/24 22:33 1 DROP Albuterol 2.5 mg Q2HPRN PRN NEB 08/11/24 20:45 08/20/24 10:09 2.5 MG Ipratropium [place] 0.5 mg Q2HPRN PRN NEB 08/11/24 20:45 08/20/24 10:09 0.5 MG Pantoprazole Sodium 40 mg DAILY IV 08/13/24 10:00 08/21/24 08:47 40 MG Piperacillin Sod/ Tazobactam Sod 100 ml @ 25 mls/hr Q8HR IV 08/12/24 23:30 08/22/24 05:52 25 MLS/HR Enoxaparin Sodium 40 mg DAILY SC 08/13/24 10:00 08/21/24 08:47 40 MG Vancomycin HCl 0 ml @ 0 mls/hr UD IV 08/13/24 15:30 Sildenafil Citrate 20 mg TID@08,14,20 PO 08/14/24 14:00 08/21/24 20:13 20 MG Fluconazole 100 ml @ 100 mls/hr DAILY IV 08/16/24 10:00 08/21/24 08:46 100 MLS/HR Hydralazine HCl 10 mg Q6HP PRN IV 08/15/24 15:30 08/19/24 06:22 10 MG Dexmedetomidine HCl 400 mcg/ Dextrose 100 ml @ 3.655 mls/ hr Q24H IV 08/15/24 17:30 08/18/24 17:14 5.483 MLS/HR Purified Water 100 ml Q6HR GT 08/18/24 18:00 08/21/24 17:02 100 ML Labetalol HCl 20 mg Q2HPRN PRN IV 08/19/24 15:15 08/20/24 06:20 20 MG Amlodipine Besylate 10 mg DAILY PO 08/20/24 10:00 08/21/24 08:48 10 MG Clonidine HCl 0.1 mg BID PO 08/19/24 22:00 08/21/24 22:32 0.1 MG Methylprednisolone Sodium Succinate 20 mg Q12HR IV 08/20/24 22:00 08/21/24 22:31 20 MG Sodium Chloride 10 ml QSHIFT@10,22 IV 08/20/24 22:00 08/21/24 08:47 10 ML Vancomycin HCl 250 ml @ 200 mls/hr Q12H IV 08/21/24 17:00 08/22/24 04:55 200 MLS/HR Carvedilol 12.5 mg Q12HR PO 08/21/24 22:00 08/21/24 22:32 12.5 MG Enteral Nutritional Formula 1,000 ml 40ML/HR GT 08/21/24 13:00 Examination General examination- patient on mechanical ventilation, HEENT- PEERLA, no acute nasal discharge Cardiovascular- S1-S2 audible, rate and rhythm regular, no murmur Respiratory- bilateral lung crackles+, + wheezing Gastrointestinal-nontender, bowel sound+. Nondistended Musculoskeletal-swan neck deformity on bilateral hands+, edematous bilateral hands Lower extremity- No leg edema Skin- no acute rash or purpura laboratory and microbiology Laboratory Tests 08/22/24 04:30 Test 08/22/24 04:30 Range/Units Serum Glucose 243 H 74-106 mg/dL Microbiology Date/Time Source Procedure Growth Status 08/13/24 04:40 Blood Blood Culture - Final NO GROWTH AFTER 5 DAYS OF INCUBATION. Complete 08/13/24 03:00 Urine - Vigil [place] Urine Culture - Final Complete 08/13/24 02:49 Sputum Gram Stain - Final Complete 08/13/24 02:49 Sputum Respiratory Culture - Final Complete Problem List/Assessment/Plan Problem List/Assessment/Plan Assessment and plan Patient is off sedatives or vasopressor. Patient is awake but not communicative Ordered Lasix 20 mg IV b.i.d. Plan is to do a CPAP trial tomorrow a.m. if patient is awake and alert and communicative and patient is able to protect her airway Ordered fecal occult blood test as hemoglobin dropped down to 9.5 Neurology # metabolic encephalopathy/toxic encephalopathy/hypoxic encephalopathy -status post cardiac arrest, status post CPR -patient on mechanical ventilation, -Reported anisocoria with right-sided slightly weaker -CT head very mild cortical atrophy -MRI of the brain- No acute intracranial pathology -continue current management Cardiovascular -Acute diastolic heart failure -[place] set AF patient on DVT prophylaxis -paroxysmal Bradycardia -Echo 2D on 08/13/2024-LVEF 60%, concentric LVH with right ventricle and right atrial enlargement. -CAD -pulmonary hypertension -history of hypertension -hyperlipidemia -continue nebulization -continue Coreg 12.5 mg b.i.d.- hold if bradycardia Respiratory -acute hypoxic respiratory failure -acute exacerbation of COPD -pulmonary hypertension -failed CPAP trial on 08/18/2024 -Blood culture no growth so far -Urine culture less than 41925 colony-forming units per mL yeast -Respiratory Culture preliminary no growth -continue nebulization -methylprednisolone 20 mg IV q.12 hours -sildenafil 20 mg t.i.d. Gastrointestinal -transaminitis -monitor CMP Genitourinary/renal -HECTOR likely due to VMN -right kidney cyst in the lower pole -avoid dehydration and nephrotoxic drugs Infectious disease -? Septic shock -acute pneumonia Gram-positive versus Gram-negative -continue Zosyn and vancomycin as prescribed Hemato oncology -anemia of chronic disease -ordered fecal occult blood test -monitor CBC Endocrinology/ metabolic disorder -obesity Musculoskeletal -rheumatoid arthritis -gout -continue current management Skin or elementary -wound care consult in place PICC line ETT Vigil's catheter Goals of care/advance care planning Code status ; discussed with >25 minutes PUD prophylaxis: Pantoprazole DVT prophylaxis: Lovenox Plan discussed with Dr. Ortega, nursing staff, daughter Total time spent on patient evaluation, chart review, assessment and plan, total critical time spent including monitoring mechanical ventilation excluding procedure 61 minutes Plan discussed with: Daughter, Other (RN) My Orders My Orders Orders - CALI WITT Procedure Category Date Status Time Complete Blood Count LAB 08/22/24 Logged 04:00 Chest Portable XY 08/22/24 Resulted 04:00 Abg W/ Co-Ox RT 08/22/24 Logged 05:00 Dietary Evaluation Review Recommendations by RD: Protein Supplementation Comments: 1) Increase TF rate from 30 mL/hr to 35 mL/hr. Initiate Pro-Stat @ 30 mL bid. Goal rate (including Pro-Stat) will provide 1208 kcals, 77g Pro, and 1178 mL free H2O (including flushes) per 24 hrs. Goal rate will meet ~ 100% estimated daily energy needs and ~94% estimated daily protein needs 2) Initiate vitamin C @ 500 mg and zinc sulfate @ 220 mg qd for 7 days 3) Advance to cardiac diet when medically feasible, pending CORE RESCUER approval 4) F/u with cardiology and pulmonology 5) Continue to monitor I&O, labs, and skin integrity Expected Outcomes/Goals: 1) appetite and labs to improve 2) diet to advance 3) f/u in 2-3 Interpretation of weight loss: up to 20% in 1 year CALI WITT Aug 22, 2024 07:00
[2024-08-22 08:47] LABS: Base Excess 2.4 mmol/L (-2.0-3.0)
[2024-08-22 09:05] LABS: Hematocrit 30.4 % (36.0-46.0); Hemoglobin 9.5 g/dL (12.2-16.2); Mean Corpuscular Hgb Conc. 31.2 g/dL (32.0-36.0); Mean Corpuscular Volume 86.6 fL (80.0-100.0); Platelet Count (auto) 148 10^3/uL (140-450); Red Blood Cells 3.51 10^6/uL (4.0-5.20); White Blood Cell 14.4 10^3/uL (4.4-10.8)
[2024-08-22 09:09] LABS: Band Neutrophils % (manual) 0; Basophils % (manual) 0 (0.0-2.0); Blast Cells 0; Eosinophils % (manual) 0 (0-7); Metamyelocytes % 0; Myelocytes % 0; Promyelocytes % 0; Reactive Lymphocytes 0
[2024-08-22 10:11] LABS: Lymphocytes % (manual) 4 (10.0-50.0); Monocytes % (manual) 6 (0-12); Platelet Estimate Adequate
--- NOTE | 2024-08-22 11:48 | DVHPN2 ---
Progress Note - Dictate Date Seen: Aug 22, 2024 Medical Necessity Reason Pt with a Central, PICC or Fol: Yes The following are medically ne: Central Line, Vigil Catheter Reason for vigil catheter: Strict I&O Subjective Ms. Recinos is a 73 years old female with a history of hypertension, dyslipidemia, coronary artery disease, heart attack, congestive heart failure, asthma, COPD on home oxygen, gout, anemia, the patient was admitted found her snf on 08/11/2024 with a chief company of shortness of breath I have seen and examined the patient, I have talked to her nurse. Her son is in the room with her, eyes open, but she does not follow verbal commands. Nurse and her son reports the patient was followed earlier this morning A returned to the units last evening, talking to her daughter, son and other family member. At that time, I confirmed the patient was was able to follow verbal commands from her family members ABG, 08/12/2024: Respiratory acidosis, hypoxia WBC/HB/PLT/MCV, 08/12/2024: 7.2/11.9/302/85.7, 08/19/2024: 13.9/12.9/167/86.5 CMP, 08/12/2024: Unremarkable HGB A1c, 04/11/2024: 500 TBI/AST/ALT/AP, 08/19/2024: 0.19/61/108/86 TG/HDL/LDL/HDL, 05/2023: 101/6/186/45 Vitamin B12, 03/2024: 1161 TSH, 03/2024: 1.39 EEG 08/13/2024: Remarkably abnormal Extremity venous study, 08/13/2024: No evidence of right or left femoropopliteal venous thrombosis. Chest x-ray, 08/12/2024: Left central venous catheter overlies the left upper chest and may be not position. Clinical correlation advised. Endotracheal tube in satisfactory position. Left central venous catheter in uncertain position Chest x-ray, 08/15/24: Hazy bilateral opacities are unchanged CT head, 08/12/2024: Very mild cortical atrophy otherwise unremarkable study CT head, 08/17/2024: No acute intracranial abnormality CTA chest, 08/13/2024: Grossly enlarged pulmonary arteries underlying pulmonary arterial hypertension is suspected no pulmonary embolus There are bilateral infiltrates in the lung bases MRI brain, 07/17/24: No acute intracranial pathology vital signs Vital Sign Date Time Temp Pulse Resp B/P (MAP) Pulse Ox O2 Delivery O2 Flow Rate FiO2 08/22/24 11:35 30 08/22/24 11:35 18 95 Mechanical Ventilator+ 08/22/24 11:30 66 119/56 (77) 08/22/24 08:00 97.5 97.5 Total Intake and Output 08/21/24 08/21/24 08/22/24 15:00 23:00 07:00 Intake Total 200 ml 785 ml 743 ml Output Total 450 ml 750 ml Balance 200 ml 335 ml -7 ml medications Current Medications Medications Dose Ordered Sig/Kristen Route Start Time Stop Time Status Last Admin Dose Admin Sodium Chloride 10 ml Q8HR IV 08/11/24 14:00 08/22/24 05:52 10 ML Ondansetron HCl 4 mg Q4HP PRN IV 08/11/24 13:00 Docusate Sodium 100 mg BIDPRN PRN PO 08/11/24 13:00 Acetaminophen 650 mg Q6HP PRN PO 08/11/24 13:00 Albuterol 2.5 mg Q6HWA NEB 08/11/24 18:00 08/22/24 06:43 2.5 MG Ipratropium [place] 0.5 mg Q6HWA NEB 08/11/24 18:00 08/22/24 06:43 0.5 MG Latanoprost 1 drop QPM EACHEYE 08/11/24 18:00 08/18/24 21:16 1 DROP Patient Own Medication 1 drop BID EACHEYE 08/11/24 22:00 08/21/24 22:33 1 DROP Albuterol 2.5 mg Q2HPRN PRN NEB 08/11/24 20:45 08/20/24 10:09 2.5 MG Ipratropium [place] 0.5 mg Q2HPRN PRN NEB 08/11/24 20:45 08/20/24 10:09 0.5 MG Pantoprazole Sodium 40 mg DAILY IV 08/13/24 10:00 08/22/24 07:54 40 MG Piperacillin Sod/ Tazobactam Sod 100 ml @ 25 mls/hr Q8HR IV 08/12/24 23:30 08/22/24 05:52 25 MLS/HR Enoxaparin Sodium 40 mg DAILY SC 08/13/24 10:00 08/22/24 07:55 40 MG Vancomycin HCl 0 ml @ 0 mls/hr UD IV 08/13/24 15:30 Sildenafil Citrate 20 mg TID@08,14,20 PO 08/14/24 14:00 08/22/24 07:54 20 MG Fluconazole 100 ml @ 100 mls/hr DAILY IV 08/16/24 10:00 08/22/24 07:54 100 MLS/HR Hydralazine HCl 10 mg Q6HP PRN IV 08/15/24 15:30 08/19/24 06:22 10 MG Dexmedetomidine HCl 400 mcg/ Dextrose 100 ml @ 3.655 mls/ hr Q24H IV 08/15/24 17:30 08/18/24 17:14 5.483 MLS/HR Purified Water 100 ml Q6HR GT 08/18/24 18:00 08/21/24 17:02 100 ML Labetalol HCl 20 mg Q2HPRN PRN IV 08/19/24 15:15 08/20/24 06:20 20 MG Amlodipine Besylate 10 mg DAILY PO 08/20/24 10:00 08/22/24 10:01 10 MG Clonidine HCl 0.1 mg BID PO 08/19/24 22:00 08/21/24 22:32 0.1 MG Methylprednisolone Sodium Succinate 20 mg Q12HR IV 08/20/24 22:00 08/22/24 07:54 20 MG Sodium Chloride 10 ml QSHIFT@10,22 IV 08/20/24 22:00 08/22/24 07:55 10 ML Vancomycin HCl 250 ml @ 200 mls/hr Q12H IV 08/21/24 17:00 08/22/24 04:55 200 MLS/HR Carvedilol 12.5 mg Q12HR PO 08/21/24 22:00 08/21/24 22:32 12.5 MG Enteral Nutritional Formula 1,000 ml 40ML/HR GT 08/21/24 13:00 objective The patient is well-nourished and well-developed with no distress. MENTAL STATUS: Subjective, CRANIAL NERVES: pupils are equal round and reactive to light briskly, normal external eye movement, normal sensation and motor examination in the lateral trigeminal nerve distribution, no facial weakness SENSATION: Responses to pain stimuli. MOTOR: Normal tone in the upper and lower extremity. Normal muscle bulk. No fasciculations. Move the fingers minimally REFLEXES: Deep tendon reflexes are symmetrical. No pathological reflexes. CEREBELLAR/COORDINATION: Deferred GAIT/STATION: deferred. laboratory and microbiology Laboratory Tests 08/22/24 08:15 08/22/24 04:30 Test 08/22/24 04:30 Range/Units Serum Glucose 243 H 74-106 mg/dL Problem List Coma, resolved Hypoxic encephalopathy Metabolic encephalopathy Toxic encephalopathy Cardiopulmonary arrest Respiratory failure Hypoxia Status post CPR Sepsis Pneumonia Acidosis Seizure-like activity to rule out seizure attack Reported anisocoria with right-sided slightly weaker on 08/14/2024, evident physical examination on 08/19/2024 Assessment/Plan Monitoring Supportive treatment ICU care Follow-up labs Respiratory support Stabilize vitals Antibiotics Oxygen DVT prophylaxis GI prophylaxis More recommendation per clinical course This medical document was created using an electronic medical record system with [employer] dictation system. Although this document has been carefully reviewed, there may still be some phonetic and typographical errors. These areas are purely typographical due to imperfections of the software programs, and do not reflect any compromise in the patient's medical care. Prognosis poor Dietary Evaluation Review Recommendations by RD: Protein Supplementation Comments: 1) Increase TF rate from 30 mL/hr to 35 mL/hr. Initiate Pro-Stat @ 30 mL bid. Goal rate (including Pro-Stat) will provide 1208 kcals, 77g Pro, and 1178 mL free H2O (including flushes) per 24 hrs. Goal rate will meet ~ 100% estimated daily energy needs and ~94% estimated daily protein needs 2) Initiate vitamin C @ 500 mg and zinc sulfate @ 220 mg qd for 7 days 3) Advance to cardiac diet when medically feasible, pending S[employer]OL [employer]SPORTATION DIRECTOR approval 4) F/u with cardiology and pulmonology 5) Continue to monitor I&O, labs, and skin integrity Expected Outcomes/Goals: 1) appetite and labs to improve 2) diet to advance 3) f/u in 2-3 Interpretation of weight loss: up to 20% in 1 year Plan discussed with: Raul, Daniel PATRIZIA SHERWOOD MD Aug 22, 2024 11:48
--- NOTE | 2024-08-22 12:27 | ECG ---
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
--- NOTE | 2024-08-22 15:30 | ECG ---
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: : 1950 Requested By: ROSHAN HERNANDEZ Order Number: [id number] Reading MD: Lamberto Brink Measurements Intervals [place] Rate: 56 P: 0 OR: 0 QRS: 97 QRSD: 110 T: -85 QT: 446 QTc: 430 Interpretive Statements Atrial fibrillation with slow ventricular response with premature ventricular or aberrantly conducted complexes Possible Right ventricular hypertrophy ST & T wave abnormality, consider inferior ischemia or digitalis effect ST & T wave abnormality, consider anterolateral ischemia or digitalis effect Electronically Signed On 08-27-2024 20:46:23 PDT by Lamberto Brink Please click the below link to view image of tracing.
--- NOTE | 2024-08-22 15:31 | ECG ---
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
[2024-08-22] MEDS: FUROSEMIDE 20 MG/2 ML VIAL IV ONE (17:23)
--- NOTE | 2024-08-22 22:14 | DVHINCON2 ---
Date of service: Aug 22, 2024 Referring Physician Jase Reason for Consultation A-fib History of Present Illness This is a 73 year old female with a PMH of Asthma, COPD, CHF who was brought in by EMS from [facility] on 08/11 with complaints of SOB and a cough. EMS stated that when they arrived on scene, [facility] nurses were already giving the patient a breathing treatment. EMS noted that the patient's O2 sats were in the high 80's before placing her 4L O2 which after brought up the sat levels to the low 90's. Chest x-ray showed patchy bibasilar airspace opacities and cardiomegaly. Patient was admitted to the hospital. Patient was subsequently endotracheally intubated during a Code Blue on 08/12. I have been asked to evaluate this patient from cardiology perspective. Family History: Alcoholism G8 SISTER, , Cause: Natural of unknown etiology, Not a twin Cardiovascular disease G8 MOTHER, , Cause: Natural of unknown etiology, Not a twin G8 BROTHER, , Cause: Natural of unknown etiology, Not a twin Glaucoma G8 FATHER Ischemic heart disease G8 MOTHER, , Cause: Natural of unknown etiology, Not a twin Allergies: Coded Allergies: Ceftriaxone (Verified Allergy, Intermediate, 12/31/23) RASH COUGH Levofloxacin (Verified Allergy, Unknown, 12/31/23) Home Meds Active Scripts Hydralazine Hcl (Hydralazine Hcl) 10 Mg Tab, 10 MG PO DAILY PRN for 20 Days, #20 TAB Prov:GIOVANY RIBERA RESIDENT 04/12/24 Reported Medications Latanoprost (LATANOPROST) 0.005 % Viktoriya, 1 DROP EACHEYE QPM for GLAUCOMA, #7.5 ML 3 Refills 12/31/23 Dorzolamide-Timolol (Dorzolamide Hcl/Timolol M) 1 Ml Viktoriya, 1 DROP EACHEYE BID, #10 ML 6 Refills 12/31/23 Mbtvqiwhvgd-Wmpvnwdbixhz-Obddm (Trelegy Ellipta 200-62.5-25 Mcg/INH) 1 Aer Aer, 1 AER IN DAILY for COPD, AER 12/31/23 Sildenafil Citrate (SILDENAFIL CITRATE) 20 Mg Tab, 20 MG PO TID for PUL. HTN, TAB 12/31/23 Furosemide (Furosemide) 40 Mg Tab, 1 TAB PO DAILY 07/31/22 Carvedilol (Carvedilol) 25 Mg Tab, 1 TAB PO BID 07/31/22 Ferrous Sulfate (Ferosul) 325 Mg Tab, 1 TAB PO BID 07/31/22 Current Medications Current Medications Medications (Trade) Dose Ordered Sig/Kristen Route PRN Reason Start Time Stop Time Status Last Admin Vancomycin HCl 250 ml @ 200 mls/hr Q12H IV 08/21/24 17:00 08/22/24 04:55 Carvedilol (Coreg Tablet) 12.5 mg Q12HR PO 08/21/24 22:00 08/21/24 22:32 Review of Systems Unable to review: Patient is intubated. Vital Signs Vital Signs Date Time Temp Pulse Resp B/P (MAP) Pulse Ox O2 Delivery O2 Flow Rate FiO2 08/22/24 13:37 30 08/22/24 13:37 78 08/22/24 13:36 18 97 Mechanical Ventilator+ 08/22/24 13:35 113/57 (75) 08/22/24 12:00 98.4 98.4 Physical Exam GENERAL: Intubated on ventilator. LUNGS: Decreased breath sounds. CARDIOVASCULAR: Heart sounds are good. ABDOMEN: Soft. Labs/Diagnostic Data Labs Test 08/22/24 08:34 08/22/24 08:15 08/22/24 04:30 08/21/24 04:31 Range/Units Blood Gas Specimen Type Arterial Blood Gas Sample Site Left radial Blood Gas Patient Temperature 37.0 Arterial Blood Date Drawn [id number] Arterial Blood pH 7.456 H 7.350-7.450 Arterial Blood Partial Pressure CO2 38.4 32.0-45.0 mmHg Arterial Blood Partial Pressure O2 76.6 L 83.0-108.0 mmHg Arterial Blood HCO3 26.5 21.0-28.0 mmol/L Arterial Blood Oxygen Saturation 94.9 94.0-98.0 % Arterial Blood Base Excess 2.4 -2.0-3.0 mmol/L Arterial Blood Oxyhemoglobin 93.8 L 94.0-98.0 % Arterial Blood Carboxyhemoglobin 0.6 0.5-1.5 % Arterial Blood Methemoglobin 0.6 0.0-1.5 % Harpreet Test Modified Blood Gas Total Hemoglobin 8.60 L 12.0-16.0 g/dL Blood Gas Set Respiration Rate 18.0 Blood Gas Modality Vent - ac FiO2 % 30.0 Blood Gas Tidal Volume 400.0 Blood Gas PEEP or CPAP 5.0 White Blood Count 14.4 H 4.4-10.8 10^3/uL Red Blood Count 3.51 L 4.0-5.20 10^6/uL Hemoglobin 9.5 #L 12.2-16.2 g/dL Hematocrit 30.4 #L 36.0-46.0 % Mean Corpuscular Volume 86.6 80.0-100.0 fL Mean Corpuscular Hemoglobin 27.0 L 28.0-32.0 pg Mean Corpuscular Hemoglobin Concent 31.2 L 32.0-36.0 g/dL Red Cell Distribution Width 15.0 H 11.8-14.3 % Platelet Count 148 140-450 10^3/uL Mean Platelet Volume 9.8 6.9-10.8 fL Neutrophils (%) (Auto) 37.0-80.0 % Lymphocytes (%) (Auto) 10.0-50.0 % Monocytes (%) (Auto) 0.0-12.0 % Basophils (%) (Auto) 0.0-2.0 % Neutrophils # (Auto) 1.6-8.6 10 ^3/uL Lymphocytes # (Auto) 0.4-5.4 10 ^3/uL Monocytes # (Auto) 0-1.3 10 ^3/uL Differential Total Cells Counted 100.0 100 Neutrophils % (Manual) 90 H 37.0-80.0 Band Neutrophils % (Manual) 0 Lymphocytes % (Manual) 4 L 10.0-50.0 Monocytes % (Manual) 6 0-12 Eosinophils % (Manual) 0 0-7 Basophils % (Manual) 0 0.0-2.0 Metamyelocytes % (manual) 0 Myelocytes % (Manual) 0 Promyelocytes % (Manual) 0 Blast Cells % (Manual) 0 Reactive Lymphocytes 0 Platelet Estimate Adequate Sodium Level 139 136-145 mmol/L Potassium Level 3.5 3.5-5.1 mmol/L Chloride Level 102 98-107 mmol/L Carbon Dioxide Level 30 20-31 mmol/L Anion Gap 7 5-15 Blood Urea Nitrogen 25 H 9-23 mg/dL Creatinine 0.87 0.550-1.02 mg/dL Glomerular Filtration Rate Calc 71 >90 mL/min BUN/Creatinine Ratio 28.7 H 10.0-20.0 Serum Glucose 243 H 74-106 mg/dL Calcium Level 9.2 8.7-10.4 mg/dL Magnesium Level 2.3 1.6-2.6 mg/dL Total Bilirubin 0.7 0.2-1.0 mg/dL Aspartate Amino Transferase (AST) 27 13-40 U/L Alanine Aminotransferase (ALT) 53 H 7-40 U/L Alkaline Phosphatase 75 46-116 U/L Total Protein 5.6 L 5.7-8.2 g/dL Albumin 3.5 3.2-4.8 g/dL Eosinophils (%) (Auto) 0.0 0.0-7.0 % Eosinophils # (Auto) 0 0-0.8 10 ^3/uL Basophils # (Auto) 0 0-0.2 10 ^3/uL Nucleated Red Blood Cells 0.0 % Vancomycin Level Trough 13.6 H 5-10 ug/mL Test 08/20/24 14:09 08/16/24 06:32 08/14/24 04:30 08/12/24 21:25 Range/Units Prothrombin Time 11.8 9.3-11.8 sec Prothrombin Time INR 1.13 0.9-1.15 Activated Partial Thromboplast Time 28.5 24.5-34.5 SEC Blood Gas Comments Urine Color Colorless Yellow Urine Clarity Ex.turbid Clear Urine pH 5.5 5.0-9.0 Urine Specific [place] 1.016 1.001-1.035 Urine Protein Trace H Negative Urine Ketones Negative Negative Urine Blood 3+ H Negative /uL Urine Nitrite Negative Negative Urine Bilirubin Negative Negative Urine Urobilinogen Normal Negative mg/dL Urine Leukocyte Esterase 1+ Negative /uL Urine RBC 494 0 - 4 /hpf Urine Microscopic WBC 20 H 0-5 /HPF Urine Squamous Epithelial Cells Few <5 /hpf Urine Uric Acid Crystals Many None Seen /hpf Urine Bacteria Few H None Seen /hpf Urine Hyaline Casts Few 0 - 2 /lpf Urine Mucus Few None Seen Urine Yeast (Budding) Many None Seen /hpf Urine Glucose Normal Normal mg/dL Random Vancomycin Level 10.4 H 5-10 ug/mL Blood Gas Spontaneous Rate 20 Blood Gas Spontaneous Tidal Volume 400 Bl Gas Inspiratory/Expiratory Ratio 1:2.4 Specimen Drawn By Rocael damon rt Test 08/12/24 15:55 08/12/24 15:28 08/12/24 12:20 08/11/24 11:40 Range/Units D-Dimer, Quantitative 22.61 H 0.0-0.49 mg/L FEU Blood Gas Inspiratory Pressure 33.0 Blood Gas Liter Flow 15.00 Blood Gas Critical Value Read Back Yes Blood Gas Notified Whom Blood Gas Notified Time [id number] Blood Gas Notified By Bdownard radio electrician Troponin I High Sensitivity 23 </=34 ng/L Test 08/11/24 08:33 Range/Units B-Type Natriuretic Peptide 273.61 0-100 pg/mL Microbiology Date/Time Source Procedure Growth Status 08/13/24 04:40 Blood Blood Culture - Final NO GROWTH AFTER 5 DAYS OF INCUBATION. Complete 08/13/24 03:00 Urine - [place] Urine Culture - Final Complete 08/13/24 02:49 Sputum Gram Stain - Final Complete 08/13/24 02:49 Sputum Respiratory Culture - Final Complete Assessment Metabolic encephalopathy/toxic encephalopathy/hypoxic encephalopathy. Status post cardiac arrest. Acute diastolic heart failure. New onset AFib. Paroxysmal Bradycardia . Acute hypoxic respiratory failure. Acute exacerbation of COPD. Pulmonary hypertension. Transaminitis. HECTOR. Pneumonia. Anemia of chronic disease. Obesity. Rheumatoid arthritis. Gout. Hypertension. Hyperlipidemia. Plan/Recommendation I agree with your ongoing assessment and care of plan. Coreg, Amlodipine, Clonidine. DVT and GI prophylactics. Diuretics with Lasix. IV Labetalol for SBP >150 IV Hydralazine for SBP > 150. IV antibiotics as ordered. Additional plan as per the hospital course. Critical care time of 90 minutes provided to include time spent evaluation of patient at bedside, when appropriate patient/family education for diagnosis, treatment plan, review of pertinent medical information and discussion of care with specialty providers and PCP. Mechanical ventilator parameters, treatment and adjustments have personally been reviewed by me and treatment plan by spinning operator has also been reviewed. Plan discussed with: Other ASHLEY BRADFORD MD Aug 22, 2024 14:25
[2024-08-23] VITALS (109 sets, daily range): BP systolic 100–139; BP diastolic 45–82; PULSE 62–98; RESP 14–27; TEMP 97.5–99.1; O2SAT 82–100
--- NOTE | 2024-08-23 04:17 | DVH ---
CHEST RADIOGRAPH Indication: PNA Technique: Single frontal view of the chest was obtained COMPARISON: XY CHEST PORTABLE on DOS: 08/22/24, XY CHEST PORTABLE on DOS: 08/21/24, XY CHEST PORTABLE o n DOS: 08/20/24, XY CHEST PORTABLE on DOS: 08/20/24, XY CHEST PORTABLE on DOS: 08/19/24 FINDINGS: Lines and Tubes: Unchanged Lungs: Persistent mild diffuse increased prominence of the pulmonary vasculature. No evidence of foca l consolidation. Pleura: No effusion. No pneumothorax. Cardiomediastinal contours: Unremarkable Bones: Unremarkable IMPRESSION: 1. Stable mild diffuse increased prominence of the pulmonary vasculature. 2. Lines and tubes unchanged.
[2024-08-23] MEDS: FUROSEMIDE 20 MG/2 ML VIAL IV SCH (05:57)
[2024-08-23 06:03] LABS: Basophils # (auto) 0 10 ^3/uL (0-0.2); Basophils % (auto) 0.1 % (0.0-2.0); Eosinophils # (auto) 0 10 ^3/uL (0-0.8); Hematocrit 36.4 % (36.0-46.0); Hemoglobin 11.6 g/dL (12.2-16.2); Lymphocytes # (auto) 0.4 10 ^3/uL (0.4-5.4); Lymphocytes % (auto) 2.3 % (10.0-50.0); Mean Corpuscular Hemoglobin 27.1 pg (28.0-32.0); Mean Corpuscular Hgb Conc. 31.8 g/dL (32.0-36.0); Mean Corpuscular Volume 85.2 fL (80.0-100.0); Monocytes # (auto) 0.9 10 ^3/uL (0-1.3); Monocytes % (auto) 4.7 % (0.0-12.0); Neutrophils # (auto) 16.9 10 ^3/uL (1.6-8.6); Neutrophils % (auto) 92.9 % (37.0-80.0); Platelet Count (auto) 177 10^3/uL (140-450); Red Blood Cells 4.27 10^6/uL (4.0-5.20); Red Cell Distribution Width 15.4 % (11.8-14.3); White Blood Cell 18.2 10^3/uL (4.4-10.8)
[2024-08-23 06:19] LABS: Albumin 3.6 g/dL (3.2-4.8); Alkaline Phosphatase 76 U/L (46-116); Anion Gap 5 (5-15); Aspartate Aminotransferase 28 U/L (13-40); BUN/Creatinine Ratio 24.5 (10.0-20.0); Bilirubin, Total 0.7 mg/dL (0.2-1.0); Calcium 9.2 mg/dL (8.7-10.4); Chloride 102 mmol/L (98-107); Magnesium 2.4 mg/dL (1.6-2.6); Sodium 140 mmol/L (136-145)
[2024-08-23 06:25] LABS: Alanine Aminotransferase 49 U/L (7-40); Blood Urea Nitrogen 24 mg/dL (9-23); Carbon Dioxide 33 mmol/L (20-31); Glucose 265 mg/dL (74-106); Potassium 3.5 mmol/L (3.5-5.1); Total Protein 5.7 g/dL (5.7-8.2)
[2024-08-23 08:29] LABS: Base Excess 4.6 mmol/L (-2.0-3.0)
[2024-08-23] MEDS ORDERED: VANCOMYCIN 1GM/200ML PM 250 ML IV ONE (13:00)
[2024-08-23] MEDS: AZITHROMYCIN 500MG/ 250ML 250 ML IV ONE (13:45)
[2024-08-23] MEDS ORDERED: DEXTROSE (50%) 50ML SYRG IV PRN (14:15)
--- NOTE | 2024-08-23 17:03 | DVHPN2 ---
Subjective Intubated Reviewed: Care Plan, H&P, Labs, Medications, Previous Orders, Radiology, Other (Consultants) Changes from previous H/P or p: No Changes Objective Vitals Vital Signs Date Time Temp Pulse Resp B/P (MAP) Pulse Ox O2 Delivery O2 Flow Rate FiO2 08/23/24 16:00 18 100 Mechanical Ventilator+ 30 30 08/23/24 16:00 80 08/23/24 15:45 118/69 (85) 08/23/24 12:00 98.3 98.3 Intake/Output Intake and Output 08/23/24 07:00 Intake Total 1193 ml Output Total 1800 ml Balance -607 ml Intake Oral 280 ml IV Total 325 ml Tube Feeding 588 ml Output Urine Total 1800 ml General Appearance: Other (Intubated. Minimally opens the eyes and close them tight when I tried to check her pupils) HEENT: Atraumatic Lungs: Other (Few crackles bilaterally) Cardiovascular: Regular rate Abdomen: Soft Neuro: Other (Not following commands) Medications Current Medications Medications Dose Ordered Sig/Kristen Route Start Time Stop Time Status Last Admin Dose Admin Sodium Chloride 10 ml Q8HR IV 08/11/24 14:00 08/23/24 14:00 10 ML Ondansetron HCl 4 mg Q4HP PRN IV 08/11/24 13:00 Docusate Sodium 100 mg BIDPRN PRN PO 08/11/24 13:00 Acetaminophen 650 mg Q6HP PRN PO 08/11/24 13:00 Albuterol 2.5 mg Q6HWA NEB 08/11/24 18:00 08/23/24 11:47 2.5 MG Ipratropium [place] 0.5 mg Q6HWA NEB 08/11/24 18:00 08/23/24 11:46 0.5 MG Latanoprost 1 drop QPM EACHEYE 08/11/24 18:00 08/18/24 21:16 1 DROP Patient Own Medication 1 drop BID EACHEYE 08/11/24 22:00 08/23/24 10:00 1 DROP Albuterol 2.5 mg Q2HPRN PRN NEB 08/11/24 20:45 08/20/24 10:09 2.5 MG Ipratropium [place] 0.5 mg Q2HPRN PRN NEB 08/11/24 20:45 08/20/24 10:09 0.5 MG Pantoprazole Sodium 40 mg DAILY IV 08/13/24 10:00 08/23/24 08:40 40 MG Piperacillin Sod/ Tazobactam Sod 100 ml @ 25 mls/hr Q8HR IV 08/12/24 23:30 08/23/24 16:00 25 MLS/HR Enoxaparin Sodium 40 mg DAILY SC 08/13/24 10:00 08/23/24 08:42 40 MG Sildenafil Citrate 20 mg TID@08,14,20 PO 08/14/24 14:00 08/23/24 15:59 20 MG Hydralazine HCl 10 mg Q6HP PRN IV 08/15/24 15:30 08/19/24 06:22 10 MG Purified Water 100 ml Q6HR GT 08/18/24 18:00 08/23/24 12:00 100 ML Labetalol HCl 20 mg Q2HPRN PRN IV 08/19/24 15:15 08/20/24 06:20 20 MG Amlodipine Besylate 10 mg DAILY PO 08/20/24 10:00 08/22/24 10:01 10 MG Clonidine HCl 0.1 mg BID PO 08/19/24 22:00 08/21/24 22:32 0.1 MG Methylprednisolone Sodium Succinate 20 mg Q12HR IV 08/20/24 22:00 08/23/24 08:40 20 MG Sodium Chloride 10 ml QSHIFT@10,22 IV 08/20/24 22:00 08/23/24 08:41 10 ML Carvedilol 12.5 mg Q12HR PO 08/21/24 22:00 08/21/24 22:32 12.5 MG Enteral Nutritional Formula 1,000 ml 40ML/HR GT 08/21/24 13:00 Furosemide 20 mg BIDD IV 08/23/24 06:00 08/23/24 05:57 20 MG Azithromycin 250 ml @ 125 mls/hr DAILY IV 08/24/24 10:00 Linezolid 300 ml @ 150 mls/hr Q12HR IV 08/23/24 22:00 Diagnostic Test (Pha) 1 strip ACHS 08/23/24 17:00 Insulin Human Regular ACHS SC 08/23/24 17:00 Dextrose 50 ml UD PRN IV 08/23/24 14:15 Laboratory Results Laboratory Tests 08/23/24 05:35 Chemistry Test 08/23/24 05:35 Albumin 3.6 g/dL (3.2-4.8) Calcium Level 9.2 mg/dL (8.7-10.4) Magnesium Level 2.4 mg/dL (1.6-2.6) Total Protein 5.7 g/dL (5.7-8.2) LFT Test 08/23/24 05:35 Alanine Aminotransferase (ALT) 49 U/L (7-40) H Alkaline Phosphatase 76 U/L (46-116) Aspartate Amino Transferase (AST) 28 U/L (13-40) Total Bilirubin 0.7 mg/dL (0.2-1.0) Urinalysis Test 08/14/24 04:30 Urine Color Colorless (Yellow) Urine Clarity Ex.turbid (Clear) Urine pH 5.5 (5.0-9.0) Urine Specific [place] 1.016 (1.001-1.035) Urine Protein Trace (Negative) H Urine Ketones Negative (Negative) Urine Blood 3+ /uL (Negative) H Urine Nitrite Negative (Negative) Urine Bilirubin Negative (Negative) Urine Urobilinogen Normal mg/dL (Negative) Urine Leukocyte Esterase 1+ /uL (Negative) Urine RBC 494 /hpf (0 - 4) Urine Microscopic WBC 20 /HPF (0-5) H Urine Squamous Epithelial Cells Few /hpf (<5) Urine Uric Acid Crystals Many /hpf (None Seen) Urine Bacteria Few /hpf (None Seen) H Urine Hyaline Casts Few /lpf (0 - 2) Urine Mucus Few (None Seen) Urine Yeast (Budding) Many /hpf (None Seen) Urine Glucose Normal mg/dL (Normal) Blood Gas Results Test 08/23/24 07:13 Arterial Blood pH 7.452 (7.350-7.450) FiO2 % 30.0 Microbiology Microbiology Date/Time Source Procedure Growth Status 08/13/24 04:40 Blood Blood Culture - Final NO GROWTH AFTER 5 DAYS OF INCUBATION. Complete 08/13/24 03:00 Urine - [place] Urine Culture - Final Complete 08/13/24 02:49 Sputum Gram Stain - Final Complete 08/13/24 02:49 Sputum Respiratory Culture - Final Complete Assessment/Plan Assessment/Plan Status post cardiac arrest/CPR Acute respiratory failure COPD exacerbation and pneumonia Heart failure with acute exacerbation Pulmonary hypertension Coronary artery disease Chronic respiratory failure AFib Dyslipidemia Gout Hypertension Rheumatoid arthritis Plan: Discontinue vancomycin due to the deterioration of kidney function. Repeat labs. Add Zyvox. Add Zithromax. CPK. Urine culture. Chest x-ray BNP and ABGs. Further plan per orders. Total critical care time 50 minutes Plan discussed with: Son, Other (Nursing) My Orders Orders - SAM MA MD Procedure Category Date Status Time Azithromycin 500mg/ PHA 08/24/24 In Process 250ml (Zithromax 50 10:00 Linezolid 600mg/300ml PHA 08/23/24 In Process (Zyvox) 22:00 Complete Blood Count LAB 08/24/24 Verified 06:00 Comprehensive LAB 08/24/24 Verified Metabolic Panel 06:00 B-Type Natriuretic LAB 08/24/24 Verified Peptide 06:00 Chest Portable XY 08/24/24 Logged 06:00 Abg W/ Co-Ox RT 08/24/24 Logged 06:00 Urinalysis LAB 08/23/24 Logged 13:39 Urine Bacterial MADELINE 08/23/24 Logged Culture 13:39 Date of Service: Aug 23, 2024 Billing Provider: SAM MA MD Common Visit Codes: [id number] CARE 30-74 MIN SAM MA MD Aug 23, 2024 17:03
[2024-08-23] MEDS: ACCU-CHEK COMFORT CURVE STRIP VI SCH (17:25)
[2024-08-23] MEDS: InsuLIN REG 1unit/0.01ml Soln (100units/ml) SC SCH (17:32)
[2024-08-23 19:06] LABS: Urine Bacteria FEW /hpf (None Seen); Urine Blood 2+ /uL (Negative); Urine Budding Yeast FEW /hpf (None Seen); Urine Clarity Turbid (Clear); Urine Color Colorless (Yellow); Urine Mucus FEW (None Seen); Urine Protein, UAD Negative (Negative); Urine Specific Gravity 1.006 (1.001-1.035); Urine Squamous Epithelial Cell None Seen /hpf (<5); Urine Urobilinogen Normal (Negative); Urine WBC 80 /HPF (0-5); Urine WBC Clumps PRESENT /hpf (None Seen); Urine pH 6.5 (5.0-9.0)
[2024-08-23] MEDS: LINEZOLID 600MG/300ML 300 ML IV SCH (20:57)
--- NOTE | 2024-08-23 21:24 | DVHPN2 ---
Progress Note - Dictate Date Seen: Aug 23, 2024 Medical Necessity Reason Pt with a Central, PICC or Fol: Yes The following are medically ne: Central Line, Vigil Catheter Reason for vigil catheter: Strict I&O Subjective Ms. Recinos is a 73 years old female with a history of hypertension, dyslipidemia, coronary artery disease, heart attack, congestive heart failure, asthma, COPD on home oxygen, gout, anemia, the patient was admitted found her senior care on 08/11/2024 with a chief company of shortness of breath I have seen and examined the patient, I have talked to her nurse. She looks weakness day, she was awake, she tracks, but she does not follow verbal commands, she does not move her arms or legs ABG, 08/12/2024: Respiratory acidosis, hypoxia WBC/HB/PLT/MCV, 08/12/2024: 7.2/11.9/302/85.7, 08/19/2024: 13.9/12.9/167/86.5 CMP, 08/12/2024: Unremarkable HGB A1c, 04/11/2024: 500 TBI/AST/ALT/AP, 08/19/2024: 0.19/61/108/86 TG/HDL/LDL/HDL, 05/2023: 101/6/186/45 Vitamin B12, 03/2024: 1161 TSH, 03/2024: 1.39 EEG 08/13/2024: Remarkably abnormal Extremity venous study, 08/13/2024: No evidence of right or left femoropopliteal venous thrombosis. Chest x-ray, 08/12/2024: Left central venous catheter overlies the left upper chest and may be not position. Clinical correlation advised. Endotracheal tube in satisfactory position. Left central venous catheter in uncertain position Chest x-ray, 08/15/24: Hazy bilateral opacities are unchanged CT head, 08/12/2024: Very mild cortical atrophy otherwise unremarkable study CT head, 08/17/2024: No acute intracranial abnormality CTA chest, 08/13/2024: Grossly enlarged pulmonary arteries underlying pulmonary arterial hypertension is suspected no pulmonary embolus There are bilateral infiltrates in the lung bases MRI brain, 07/17/24: No acute intracranial pathology vital signs Vital Sign Date Time Temp Pulse Resp B/P (MAP) Pulse Ox O2 Delivery O2 Flow Rate FiO2 08/23/24 20:10 78 18 116/59 (78) 97 30 08/23/24 20:00 98.3 98.3 08/23/24 20:00 Mechanical Ventilator+ Total Intake and Output 08/22/24 08/22/24 08/23/24 15:00 23:00 07:00 Intake Total 200 ml 555 ml 438 ml Output Total 625 ml 1175 ml Balance 200 ml -70 ml -737 ml medications Current Medications Medications Dose Ordered Sig/Kristen Route Start Time Stop Time Status Last Admin Dose Admin Sodium Chloride 10 ml Q8HR IV 08/11/24 14:00 08/23/24 14:00 10 ML Ondansetron HCl 4 mg Q4HP PRN IV 08/11/24 13:00 Docusate Sodium 100 mg BIDPRN PRN PO 08/11/24 13:00 Acetaminophen 650 mg Q6HP PRN PO 08/11/24 13:00 Albuterol 2.5 mg Q6HWA NEB 08/11/24 18:00 08/23/24 18:52 2.5 MG Ipratropium [place] 0.5 mg Q6HWA NEB 08/11/24 18:00 08/23/24 18:52 0.5 MG Latanoprost 1 drop QPM EACHEYE 08/11/24 18:00 08/18/24 21:16 1 DROP Patient Own Medication 1 drop BID EACHEYE 08/11/24 22:00 08/23/24 10:00 1 DROP Albuterol 2.5 mg Q2HPRN PRN NEB 08/11/24 20:45 08/20/24 10:09 2.5 MG Ipratropium [place] 0.5 mg Q2HPRN PRN NEB 08/11/24 20:45 08/20/24 10:09 0.5 MG Pantoprazole Sodium 40 mg DAILY IV 08/13/24 10:00 08/23/24 08:40 40 MG Piperacillin Sod/ Tazobactam Sod 100 ml @ 25 mls/hr Q8HR IV 08/12/24 23:30 08/23/24 16:00 25 MLS/HR Enoxaparin Sodium 40 mg DAILY SC 08/13/24 10:00 08/23/24 08:42 40 MG Sildenafil Citrate 20 mg TID@08,14,20 PO 08/14/24 14:00 08/23/24 19:50 20 MG Hydralazine HCl 10 mg Q6HP PRN IV 08/15/24 15:30 08/19/24 06:22 10 MG Purified Water 100 ml Q6HR GT 08/18/24 18:00 08/23/24 17:33 100 ML Labetalol HCl 20 mg Q2HPRN PRN IV 08/19/24 15:15 08/20/24 06:20 20 MG Amlodipine Besylate 10 mg DAILY PO 08/20/24 10:00 08/22/24 10:01 10 MG Clonidine HCl 0.1 mg BID PO 08/19/24 22:00 08/21/24 22:32 0.1 MG Methylprednisolone Sodium Succinate 20 mg Q12HR IV 08/20/24 22:00 08/23/24 08:40 20 MG Sodium Chloride 10 ml QSHIFT@10,22 IV 08/20/24 22:00 08/23/24 08:41 10 ML Carvedilol 12.5 mg Q12HR PO 08/21/24 22:00 08/21/24 22:32 12.5 MG Enteral Nutritional Formula 1,000 ml 40ML/HR GT 08/21/24 13:00 Furosemide 20 mg BIDD IV 08/23/24 06:00 08/23/24 17:33 20 MG Azithromycin 250 ml @ 125 mls/hr DAILY IV 08/24/24 10:00 Linezolid 300 ml @ 150 mls/hr Q12HR IV 08/23/24 22:00 08/23/24 20:57 150 MLS/HR Diagnostic Test (Pha) 1 strip ACHS 08/23/24 17:00 08/23/24 17:25 1 STRIP Insulin Human Regular ACHS SC 08/23/24 17:00 08/23/24 17:32 8 UNITS Dextrose 50 ml UD PRN IV 08/23/24 14:15 objective The patient is well-nourished and well-developed with no distress. MENTAL STATUS: Subjective, CRANIAL NERVES: pupils are equal round and reactive to light briskly, normal external eye movement, normal sensation and motor examination in the lateral trigeminal nerve distribution, no facial weakness SENSATION: Responses to pain stimuli. MOTOR: Normal tone in the upper and lower extremity. Normal muscle bulk. No fasciculations. No spontaneous extremity movement REFLEXES: Deep tendon reflexes are symmetrical. No pathological reflexes. CEREBELLAR/COORDINATION: Deferred GAIT/STATION: deferred. laboratory and microbiology Laboratory Tests 08/23/24 05:35 Test 08/23/24 05:35 Range/Units Serum Glucose 265 H 74-106 mg/dL Problem List Coma, resolved Hypoxic encephalopathy Metabolic encephalopathy Toxic encephalopathy Cardiopulmonary arrest Respiratory failure Hypoxia Status post CPR Sepsis Pneumonia Acidosis Seizure-like activity to rule out seizure attack Reported anisocoria with right-sided slightly weaker on 08/14/2024, evident physical examination on 08/19/2024 Assessment/Plan Monitoring Supportive treatment ICU care Follow-up labs Respiratory support Stabilize vitals Antibiotics Oxygen DVT prophylaxis GI prophylaxis More recommendation per clinical course This medical document was created using an electronic medical record system with doxo dictation system. Although this document has been carefully reviewed, there may still be some phonetic and typographical errors. These areas are purely typographical due to imperfections of the software programs, and do not reflect any compromise in the patient's medical care. Prognosis guarded Dietary Evaluation Review Recommendations by RD: Protein Supplementation Comments: 1) Increase TF rate from 30 mL/hr to 35 mL/hr. Initiate Pro-Stat @ 30 mL bid. Goal rate (including Pro-Stat) will provide 1208 kcals, 77g Pro, and 1178 mL free H2O (including flushes) per 24 hrs. Goal rate will meet ~ 100% estimated daily energy needs and ~94% estimated daily protein needs 2) Initiate vitamin C @ 500 mg and zinc sulfate @ 220 mg qd for 7 days 3) Advance to cardiac diet when medically feasible, pending DEPUTY COURT approval 4) F/u with cardiology and pulmonology 5) Continue to monitor I&O, labs, and skin integrity Expected Outcomes/Goals: 1) appetite and labs to improve 2) diet to advance 3) f/u in 2-3 Interpretation of weight loss: up to 20% in 1 year Plan discussed with: PATRIZIA Gottlieb MD Aug 23, 2024 21:24
--- NOTE | 2024-08-23 22:50 | DVHPN2 ---
Progress Note - Dictate Date Seen: Aug 23, 2024 Medical Necessity Reason Pt with a Central, PICC or Fol: Yes The following are medically ne: Central Line, Vigil Catheter Reason for vigil catheter: Strict I&O Subjective Patient seen and examined at bedside. Intubated on mechanical ventilator. Overnight events reviewed. vital signs Vital Sign Date Time Temp Pulse Resp B/P (MAP) Pulse Ox O2 Delivery O2 Flow Rate FiO2 08/23/24 22:17 83 18 120/64 (82) 95 30 08/23/24 22:00 Mechanical Ventilator+ 08/23/24 20:00 98.3 98.3 Total Intake and Output 08/22/24 08/22/24 08/23/24 15:00 23:00 07:00 Intake Total 200 ml 555 ml 438 ml Output Total 625 ml 1175 ml Balance 200 ml -70 ml -737 ml medications Current Medications Medications Dose Ordered Sig/Kristen Route Start Time Stop Time Status Last Admin Dose Admin Sodium Chloride 10 ml Q8HR IV 08/11/24 14:00 08/23/24 22:08 10 ML Ondansetron HCl 4 mg Q4HP PRN IV 08/11/24 13:00 Docusate Sodium 100 mg BIDPRN PRN PO 08/11/24 13:00 Acetaminophen 650 mg Q6HP PRN PO 08/11/24 13:00 Albuterol 2.5 mg Q6HWA NEB 08/11/24 18:00 08/23/24 18:52 2.5 MG Ipratropium [place] 0.5 mg Q6HWA NEB 08/11/24 18:00 08/23/24 18:52 0.5 MG Latanoprost 1 drop QPM EACHEYE 08/11/24 18:00 08/18/24 21:16 1 DROP Patient Own Medication 1 drop BID EACHEYE 08/11/24 22:00 08/23/24 22:08 1 DROP Albuterol 2.5 mg Q2HPRN PRN NEB 08/11/24 20:45 08/20/24 10:09 2.5 MG Ipratropium [place] 0.5 mg Q2HPRN PRN NEB 08/11/24 20:45 08/20/24 10:09 0.5 MG Pantoprazole Sodium 40 mg DAILY IV 08/13/24 10:00 08/23/24 08:40 40 MG Piperacillin Sod/ Tazobactam Sod 100 ml @ 25 mls/hr Q8HR IV 08/12/24 23:30 08/23/24 16:00 25 MLS/HR Enoxaparin Sodium 40 mg DAILY SC 08/13/24 10:00 08/23/24 08:42 40 MG Sildenafil Citrate 20 mg TID@08,14,20 PO 08/14/24 14:00 08/23/24 19:50 20 MG Hydralazine HCl 10 mg Q6HP PRN IV 08/15/24 15:30 08/19/24 06:22 10 MG Purified Water 100 ml Q6HR GT 08/18/24 18:00 08/23/24 17:33 100 ML Labetalol HCl 20 mg Q2HPRN PRN IV 08/19/24 15:15 08/20/24 06:20 20 MG Amlodipine Besylate 10 mg DAILY PO 08/20/24 10:00 08/22/24 10:01 10 MG Clonidine HCl 0.1 mg BID PO 08/19/24 22:00 08/21/24 22:32 0.1 MG Methylprednisolone Sodium Succinate 20 mg Q12HR IV 08/20/24 22:00 08/23/24 22:08 20 MG Sodium Chloride 10 ml QSHIFT@10,22 IV 08/20/24 22:00 08/23/24 08:41 10 ML Carvedilol 12.5 mg Q12HR PO 08/21/24 22:00 08/21/24 22:32 12.5 MG Enteral Nutritional Formula 1,000 ml 40ML/HR GT 08/21/24 13:00 Furosemide 20 mg BIDD IV 08/23/24 06:00 08/23/24 17:33 20 MG Azithromycin 250 ml @ 125 mls/hr DAILY IV 08/24/24 10:00 Linezolid 300 ml @ 150 mls/hr Q12HR IV 08/23/24 22:00 08/23/24 20:57 150 MLS/HR Diagnostic Test (Pha) 1 strip ACHS 08/23/24 17:00 08/23/24 22:08 1 STRIP Insulin Human Regular ACHS SC 08/23/24 17:00 08/23/24 22:09 6 UNITS Dextrose 50 ml UD PRN IV 08/23/24 14:15 objective Gen.: Patient lying in bed in medical ICU. Intubated on mechanical ventilator. Head: Normocephalic, atraumatic. Eyes: PERRLA. Ears: Normal external anatomy. Throat: Endotracheal tube and orogastric tube in place. Neck: Supple, trachea midline. Chest: Transmitted breath sounds bilaterally. Decreased air entry bilaterally. No wheezing. Bibasilar crackles. Cardiovascular: Positive S1, positive S2. Regular rate and rhythm. Abdomen: Positive bowel sounds in all 4 quadrants. Soft, nontender, nondistended. : Vigil in place. Normal external genitalia. Rectal: Deferred. Skin: Warm, dry. Intact. Extremities: 2+ radial pulses bilaterally. No lower extremity edema. Neuro: Off sedation laboratory and microbiology Laboratory Tests 08/23/24 05:35 Test 08/23/24 05:35 Range/Units Serum Glucose 265 H 74-106 mg/dL Assessment/Plan Impression: Acute hypoxic respiratory failure Acute hypercarbic respiratory failure On mechanical ventilator Acute metabolic encephalopathy Shock, septic vs cardiogenic Bilateral pneumonia Obesity BMI 36.1 Mucous plugging Atelectasis Pulmonary hypertension, RVSP 51 mmHg (03/2024) COPD, Moderate obstructive ventilatory defect Reduced DLCO Events: Remains on vent support AC mode; RR 18, VT 400, PEEP 5, FiO2 30% Remains off sedation ABG reviewed, notable for alkalemia CXR reveals stable mild diffuse increased prominence of the pulmonary vasculature. Devices in place. Continue antibiotics Continue antifungals Continue bronchodilators Steroids IV. Accu-Cheks, ISS. Diurese PRN Monitor renal function Tube feeds for nutritional support Awaiting for mentation to improve Labs and imaging reviewed. Rest of plan as noted below. Plan: s/p cardiac arrest. s/p intubation on mechanical ventilator. AC mode; RR 18, VT 400, PEEP 5, FiO2 30% Titrate FIO2 to keep O2 saturation above 90%. VAP bundle. Daily ABG and CXR while intubated Off sedation S/p therapeutic bronchoscopy on 08/12/24, removed mucous plugging from L6-L10 and R1-R3. S/p central line and arterial line placement See separate procedure notes for details of procedures. Pressors if necessary for hemodynamic support Titrate to keep mean arterial pressure greater than 65 mmHg Continue antibiotics. IV steroids Monitor renal function Monitor electrolytes. Supplement as necessary. Monitor ins and outs. GI prophylaxis. DVT prophylaxis. Prognosis: Poor given patient's multiple co-morbidities. Condition: Critical Rest of plan per hospitalist and other consultants. A total of 35 minutes of critical care time was spent reviewing the patient record, examining the patient, making a diagnostic and therapeutic plan, discussing this plan with the medical personnel, following up on diagnostic studies and following the patient for clinical stability excluding any and all procedures. At least 50% of this time was spent in direct, [id number] contact. Thank you, Dr. Strickland, for allowing me to participate in this patient's care. Further recommendations will depend on the patient's clinical course. Please do not hesitate to contact me if you have any questions or concerns. This medical document was created using an electronic medical record system with [employer] dictation system. Although these documentations are being carefully reviewed, there may still be some phonetic and typographical changes. The errors are purely typographical, due to imperfection on the software program, and do not reflect any compromise in the patient's medical care. Dietary Evaluation Review Recommendations by RD: Protein Supplementation Comments: 1) Increase TF rate from 30 mL/hr to 35 mL/hr. Initiate Pro-Stat @ 30 mL bid. Goal rate (including Pro-Stat) will provide 1208 kcals, 77g Pro, and 1178 mL free H2O (including flushes) per 24 hrs. Goal rate will meet ~ 100% estimated daily energy needs and ~94% estimated daily protein needs 2) Initiate vitamin C @ 500 mg and zinc sulfate @ 220 mg qd for 7 days 3) Advance to cardiac diet when medically feasible, pending [employer] approval 4) F/u with cardiology and pulmonology 5) Continue to monitor I&O, labs, and skin integrity Expected Outcomes/Goals: 1) appetite and labs to improve 2) diet to advance 3) f/u in 2-3 Interpretation of weight loss: up to 20% in 1 year Plan discussed with: Other (KIKO Montesinos) Critical Care Time(min): 35 EDITH ANSARI MD Aug 23, 2024 22:50
--- NOTE | 2024-08-23 23:45 | DVHPN2 ---
Progress Note - Dictate Date Seen: Aug 23, 2024 Medical Necessity Reason Pt with a Central, PICC or Fol: Yes The following are medically ne: Central Line, Vigil Catheter Reason for vigil catheter: Strict I&O Subjective Patient was seen and evaluated in follow up in the ICU. Patient is intubated and sedated on ventilator. 30% FiO2. Patient is able to open eyes however does not follow verbal commands. WBC 18.2, CO2 33, BUN 24, ALT 49. Chest x-ray shows stable mild diffuse increased prominence of the pulmonary vasculature. vital signs Vital Sign Date Time Temp Pulse Resp B/P (MAP) Pulse Ox O2 Delivery O2 Flow Rate FiO2 08/23/24 12:00 98.3 82 20 114/58 (76) 100 98.3 08/23/24 10:00 Mechanical Ventilator+ 30 30 Total Intake and Output 08/22/24 08/22/24 08/23/24 15:00 23:00 07:00 Intake Total 200 ml 555 ml 438 ml Output Total 625 ml 1175 ml Balance 200 ml -70 ml -737 ml medications Current Medications Medications Dose Ordered Sig/Kristen Route Start Time Stop Time Status Last Admin Dose Admin Sodium Chloride 10 ml Q8HR IV 08/11/24 14:00 08/23/24 05:53 10 ML Ondansetron HCl 4 mg Q4HP PRN IV 08/11/24 13:00 Docusate Sodium 100 mg BIDPRN PRN PO 08/11/24 13:00 Acetaminophen 650 mg Q6HP PRN PO 08/11/24 13:00 Albuterol 2.5 mg Q6HWA NEB 08/11/24 18:00 08/23/24 11:47 2.5 MG Ipratropium [place] 0.5 mg Q6HWA NEB 08/11/24 18:00 08/23/24 11:46 0.5 MG Latanoprost 1 drop QPM EACHEYE 08/11/24 18:00 08/18/24 21:16 1 DROP Patient Own Medication 1 drop BID EACHEYE 08/11/24 22:00 08/23/24 10:00 1 DROP Albuterol 2.5 mg Q2HPRN PRN NEB 08/11/24 20:45 08/20/24 10:09 2.5 MG Ipratropium [place] 0.5 mg Q2HPRN PRN NEB 08/11/24 20:45 08/20/24 10:09 0.5 MG Pantoprazole Sodium 40 mg DAILY IV 08/13/24 10:00 08/23/24 08:40 40 MG Piperacillin Sod/ Tazobactam Sod 100 ml @ 25 mls/hr Q8HR IV 08/12/24 23:30 08/23/24 05:56 25 MLS/HR Enoxaparin Sodium 40 mg DAILY SC 08/13/24 10:00 08/23/24 08:42 40 MG Vancomycin HCl 0 ml @ 0 mls/hr UD IV 08/13/24 15:30 Sildenafil Citrate 20 mg TID@08,14,20 PO 08/14/24 14:00 08/23/24 08:39 20 MG Hydralazine HCl 10 mg Q6HP PRN IV 08/15/24 15:30 08/19/24 06:22 10 MG Purified Water 100 ml Q6HR GT 08/18/24 18:00 08/21/24 17:02 100 ML Labetalol HCl 20 mg Q2HPRN PRN IV 08/19/24 15:15 08/20/24 06:20 20 MG Amlodipine Besylate 10 mg DAILY PO 08/20/24 10:00 08/22/24 10:01 10 MG Clonidine HCl 0.1 mg BID PO 08/19/24 22:00 08/21/24 22:32 0.1 MG Methylprednisolone Sodium Succinate 20 mg Q12HR IV 08/20/24 22:00 08/23/24 08:40 20 MG Sodium Chloride 10 ml QSHIFT@10,22 IV 08/20/24 22:00 08/23/24 08:41 10 ML Carvedilol 12.5 mg Q12HR PO 08/21/24 22:00 08/21/24 22:32 12.5 MG Enteral Nutritional Formula 1,000 ml 40ML/HR GT 08/21/24 13:00 Furosemide 20 mg BIDD IV 08/23/24 06:00 08/23/24 05:57 20 MG objective GENERAL: Intubated on ventilator. LUNGS: Decreased breath sounds. CARDIOVASCULAR: Heart sounds are good. ABDOMEN: Soft. laboratory and microbiology Laboratory Tests 08/23/24 05:35 Test 08/23/24 05:35 Range/Units Serum Glucose 265 H 74-106 mg/dL Problem List Metabolic encephalopathy/toxic encephalopathy/hypoxic encephalopathy. Status post cardiac arrest. Acute diastolic heart failure. New onset AFib. Paroxysmal Bradycardia . Acute hypoxic respiratory failure. Acute exacerbation of COPD. Pulmonary hypertension. Transaminitis. HECTOR. Pneumonia. Anemia of chronic disease. Obesity. Rheumatoid arthritis. Gout. Hypertension. Hyperlipidemia. Assessment/Plan Continued all current supportive medical care. Coreg, Amlodipine, Clonidine. DVT and GI prophylactics. Diuretics with Lasix. IV Labetalol for SBP >150 IV Hydralazine for SBP > 150. IV antibiotics as ordered. Additional plan as per the hospital course. Critical care time of 45 minutes provided to include time spent evaluation of patient at bedside, when appropriate patient/family education for diagnosis, treatment plan, review of pertinent medical information and discussion of care with specialty providers and PCP. 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 Dietary Evaluation Review Recommendations by RD: Protein Supplementation Comments: 1) Increase TF rate from 30 mL/hr to 35 mL/hr. Initiate Pro-Stat @ 30 mL bid. Goal rate (including Pro-Stat) will provide 1208 kcals, 77g Pro, and 1178 mL free H2O (including flushes) per 24 hrs. Goal rate will meet ~ 100% estimated daily energy needs and ~94% estimated daily protein needs 2) Initiate vitamin C @ 500 mg and zinc sulfate @ 220 mg qd for 7 days 3) Advance to cardiac diet when medically feasible, pending [employer]OX [employer] approval 4) F/u with cardiology and pulmonology 5) Continue to monitor I&O, labs, and skin integrity Expected Outcomes/Goals: 1) appetite and labs to improve 2) diet to advance 3) f/u in 2-3 Interpretation of weight loss: up to 20% in 1 year Plan discussed with: ASHLEY Waggoner MD Aug 23, 2024 12:54
[2024-08-24] VITALS (103 sets, daily range): BP systolic 103–167; BP diastolic 45–99; PULSE 60–102; RESP 16–24; TEMP 97.5–98.5; O2SAT 81–100
--- NOTE | 2024-08-24 02:17 | DVH ---
CHEST RADIOGRAPH Indication: fu Technique: Single frontal view of the chest was obtained COMPARISON: XY CHEST PORTABLE on DOS: 08/23/24, XY CHEST PORTABLE on DOS: 08/22/24, XY CHEST PORTABLE o n DOS: 08/21/24, XY CHEST PORTABLE on DOS: 08/20/24, XY CHEST PORTABLE on DOS: 08/20/24 FINDINGS: Lines and Tubes: Unchanged Lungs: Clear Pleura: No effusion. No pneumothorax. Cardiomediastinal contours: Unremarkable Bones: Unremarkable IMPRESSION: 1. No acute disease. 2. Lines and tubes unchanged.
[2024-08-24 05:47] LABS: Basophils # (auto) 0 10 ^3/uL (0-0.2); Basophils % (auto) 0.1 % (0.0-2.0); Eosinophils # (auto) 0 10 ^3/uL (0-0.8); Hematocrit 36.3 % (36.0-46.0); Hemoglobin 11.5 g/dL (12.2-16.2); Lymphocytes # (auto) 0.4 10 ^3/uL (0.4-5.4); Lymphocytes % (auto) 1.9 % (10.0-50.0); Mean Corpuscular Hemoglobin 27.1 pg (28.0-32.0); Mean Corpuscular Hgb Conc. 31.8 g/dL (32.0-36.0); Mean Corpuscular Volume 85.4 fL (80.0-100.0); Monocytes % (auto) 4.8 % (0.0-12.0); Neutrophils # (auto) 18.7 10 ^3/uL (1.6-8.6); Neutrophils % (auto) 93.2 % (37.0-80.0); Platelet Count (auto) 177 10^3/uL (140-450); Red Blood Cells 4.25 10^6/uL (4.0-5.20); White Blood Cell 20.1 10^3/uL (4.4-10.8)
[2024-08-24 06:01] LABS: Albumin 3.7 g/dL (3.2-4.8); Alkaline Phosphatase 83 U/L (46-116); Anion Gap 9 (5-15); Aspartate Aminotransferase 21 U/L (13-40); BUN/Creatinine Ratio 24.7 (10.0-20.0); Bilirubin, Total 0.7 mg/dL (0.2-1.0); Blood Urea Nitrogen 23 mg/dL (9-23); Calcium 9.3 mg/dL (8.7-10.4); Sodium 136 mmol/L (136-145); Total Protein 5.9 g/dL (5.7-8.2)
[2024-08-24 06:21] LABS: Base Excess 5.9 mmol/L (-2.0-3.0)
[2024-08-24 06:43] LABS: Alanine Aminotransferase 42 U/L (7-40); Carbon Dioxide 33 mmol/L (20-31); Chloride 94 mmol/L (98-107); Glucose 334 mg/dL (74-106); Potassium 3.5 mmol/L (3.5-5.1)
[2024-08-24] MEDS: AZITHROMYCIN 500MG/ 250ML 250 ML IV SCH (10:37)
[2024-08-24] MEDS ORDERED: ERTAPENEM SOD INJ 1 GM in SODIUM CHL 0.9% 50 ML IV ONE (13:15)
[2024-08-24] MEDS ORDERED: BISACODYL 10 MG RECT SUPP PR PRN ×2 (14:00→14:15)
--- NOTE | 2024-08-24 14:02 | DVHPN2 ---
Subjective Intubated. Not following command Reviewed: Care Plan, H&P, Labs, Medications, Previous Orders, Radiology, Other (Consultants) Changes from previous H/P or p: No Changes Objective Vitals Vital Signs Date Time Temp Pulse Resp B/P (MAP) Pulse Ox O2 Delivery O2 Flow Rate FiO2 08/24/24 12:45 67 18 118/76 (90) 100 30 08/24/24 12:00 98.5 98.5 08/24/24 08:00 Mechanical Ventilator+ Intake/Output Intake and Output 08/24/24 07:00 Intake Total 1621 ml Output Total 2225 ml Balance -604 ml Intake Oral 500 ml IV Total 475 ml Tube Feeding 646 ml Output Urine Total 2225 ml General Appearance: Other (Intubated. Not following command) HEENT: Atraumatic Lungs: Other (Few crackles bilaterally) Cardiovascular: Regular rate Abdomen: Soft Neuro: Other (Closes eyes tight when trying to examine her pupils) Medications Current Medications Medications Dose Ordered Sig/Kristen Route Start Time Stop Time Status Last Admin Dose Admin Sodium Chloride 10 ml Q8HR IV 08/11/24 14:00 08/24/24 06:16 10 ML Ondansetron HCl 4 mg Q4HP PRN IV 08/11/24 13:00 Docusate Sodium 100 mg BIDPRN PRN PO 08/11/24 13:00 Acetaminophen 650 mg Q6HP PRN PO 08/11/24 13:00 Albuterol 2.5 mg Q6HWA NEB 08/11/24 18:00 08/24/24 12:55 2.5 MG Ipratropium [place] 0.5 mg Q6HWA NEB 08/11/24 18:00 08/24/24 12:55 0.5 MG Latanoprost 1 drop QPM EACHEYE 08/11/24 18:00 08/18/24 21:16 1 DROP Patient Own Medication 1 drop BID EACHEYE 08/11/24 22:00 08/24/24 10:00 1 DROP Albuterol 2.5 mg Q2HPRN PRN NEB 08/11/24 20:45 08/20/24 10:09 2.5 MG Ipratropium [place] 0.5 mg Q2HPRN PRN NEB 08/11/24 20:45 08/20/24 10:09 0.5 MG Pantoprazole Sodium 40 mg DAILY IV 08/13/24 10:00 08/24/24 10:35 40 MG Sildenafil Citrate 20 mg TID@08,14,20 PO 08/14/24 14:00 08/24/24 10:35 20 MG Hydralazine HCl 10 mg Q6HP PRN IV 08/15/24 15:30 08/19/24 06:22 10 MG Purified Water 100 ml Q6HR GT 08/18/24 18:00 08/23/24 17:33 100 ML Labetalol HCl 20 mg Q2HPRN PRN IV 08/19/24 15:15 08/20/24 06:20 20 MG Amlodipine Besylate 10 mg DAILY PO 08/20/24 10:00 08/22/24 10:01 10 MG Clonidine HCl 0.1 mg BID PO 08/19/24 22:00 08/21/24 22:32 0.1 MG Methylprednisolone Sodium Succinate 20 mg Q12HR IV 08/20/24 22:00 08/24/24 10:36 20 MG Sodium Chloride 10 ml QSHIFT@10,22 IV 08/20/24 22:00 08/24/24 10:36 10 ML Carvedilol 12.5 mg Q12HR PO 08/21/24 22:00 08/24/24 10:48 12.5 MG Enteral Nutritional Formula 1,000 ml 40ML/HR GT 08/21/24 13:00 Furosemide 20 mg BIDD IV 08/23/24 06:00 08/24/24 06:24 20 MG Azithromycin 250 ml @ 125 mls/hr DAILY IV 08/24/24 10:00 08/24/24 10:37 125 MLS/HR Linezolid 300 ml @ 150 mls/hr Q12HR IV 08/23/24 22:00 08/24/24 10:37 150 MLS/HR Diagnostic Test (Pha) 1 strip ACHS 08/23/24 17:00 08/24/24 11:30 1 STRIP Insulin Human Regular ACHS SC 08/23/24 17:00 08/24/24 12:13 8 UNITS Dextrose 50 ml UD PRN IV 08/23/24 14:15 Micafungin Sodium 100 mg/Sodium Chloride 100 ml @ 100 mls/hr DAILY IV 08/25/24 10:00 Ertapenem 1 gm/ Sodium Chloride 50 ml @ 100 mls/hr DAILY IV 08/25/24 10:00 Future hold Laboratory Results Laboratory Tests 08/24/24 05:14 Chemistry Test 08/24/24 05:14 Albumin 3.7 g/dL (3.2-4.8) Calcium Level 9.3 mg/dL (8.7-10.4) Total Protein 5.9 g/dL (5.7-8.2) Cardiac Markers Test 08/24/24 05:14 B-Type Natriuretic Peptide 301.08 pg/mL (0-100) LFT Test 08/24/24 05:14 Alanine Aminotransferase (ALT) 42 U/L (7-40) H Alkaline Phosphatase 83 U/L (46-116) Aspartate Amino Transferase (AST) 21 U/L (13-40) Total Bilirubin 0.7 mg/dL (0.2-1.0) Urinalysis Test 08/14/24 04:30 08/23/24 18:36 Urine Uric Acid Crystals Many /hpf (None Seen) Urine Hyaline Casts Few /lpf (0 - 2) Urine Color Colorless (Yellow) Urine Clarity Turbid (Clear) H Urine pH 6.5 (5.0-9.0) Urine Specific [place] 1.006 (1.001-1.035) Urine Protein Negative (Negative) Urine Ketones Negative (Negative) Urine Blood 2+ /uL (Negative) H Urine Nitrite Negative (Negative) Urine Bilirubin Negative (Negative) Urine Urobilinogen Normal mg/dL (Negative) Urine Leukocyte Esterase 3+ /uL (Negative) Urine RBC 110 /hpf (0 - 4) Urine WBC Clumps Present /hpf (None Seen) Urine Microscopic WBC 80 /HPF (0-5) H Urine Squamous Epithelial Cells None seen /hpf (<5) Urine Bacteria Few /hpf (None Seen) H Urine Mucus Few (None Seen) Urine Yeast (Budding) Few /hpf (None Seen) Urine Glucose 2+ mg/dL (Normal) H Blood Gas Results Test 08/24/24 06:14 Arterial Blood pH 7.450 (7.350-7.450) FiO2 % 30.0 Microbiology Microbiology Date/Time Source Procedure Growth Status 08/23/24 18:36 Voided Urine Urine Culture - Preliminary Resulted 08/13/24 04:40 Blood Blood Culture - Final NO GROWTH AFTER 5 DAYS OF INCUBATION. Complete 08/13/24 02:49 Sputum Gram Stain - Final Complete 08/13/24 02:49 Sputum Respiratory Culture - Final Complete Assessment/Plan Assessment/Plan Status post cardiac arrest/CPR Acute respiratory failure COPD exacerbation and pneumonia Heart failure with acute exacerbation Pulmonary hypertension Coronary artery disease Chronic respiratory failure AFib Dyslipidemia Gout Hypertension Rheumatoid arthritis Plan: Add anti fungus. Start ertapenem. Waiting for urine culture. Repeat CBC. Head CT. Further plan per orders. Total critical care time 40 minutes Plan discussed with: Son, Other (Nursing) My Orders Orders - SAM MA MD Procedure Category Date Status Time Micafungin Sodium PHA 08/25/24 In Process (Mycamine) 10:00 Micafungin Sodium PHA 08/24/24 In Process (Mycamine) 13:15 Ertapenem Sod Inj PHA 08/25/24 In Process (Invanz) 10:00 Ertapenem Sod Inj PHA 08/24/24 In Process (Invanz) 14:00 Date of Service: Aug 24, 2024 Billing Provider: SAM MA MD Common Visit Codes: [id number] CARE 30-74 MIN SAM MA MD Aug 24, 2024 14:02
[2024-08-24] MEDS: MICAFUNGIN SODIUM 100 MG in SODIUM CHL 0.9% 100 ML IV ONE (16:08)
[2024-08-24] MEDS: ERTAPENEM SOD INJ 1 GM in SODIUM CHL 0.9% 50 ML IV ONE (16:09)
--- NOTE | 2024-08-24 16:12 | DVH ---
EXAM: CT HEAD WITHOUT CONTRAST INDICATION: OFF SEDATION X5 DAYS. NON-RESPONSIVE TO COMMANDS TECHNIQUE: CT of the head without intravenous contrast. Radiation Dose Information: CT Dose: CTDI volume is 53.0 mGy. Dose-length product is 938.66 mGy*cm The dose indicators for CT are the volume Computed Tomography (CT) Dose Index (CTDIvol) and the Dose Length Product (DLP), and are measured in units of mGy and mGy-cm, respectively. These indicators are not patient dose, but values generated from the CT scanner acquisition factors. The report includes radiation exposure data for exposures received during this examination. COMPARISON: CT HEAD WITHOUT CONTRAST on DOS: 08/17/24, CT HEAD WITHOUT CONTRAST on DOS: 08/12/24 FINDINGS: There is no evidence of acute intracranial hemorrhage, extra-axial collection, mass effect, midline s hift, herniation or hydrocephalus. The ventricles, sulci and cisterns are age appropriate. The wolf-white differentiation is intact. Patchy periventricular and subcortical white matter hypoattenuation is nonspecific but may be related to small vessel ischemic disease. The visualized paranasal sinuses and mastoid air cells are clear. The surrounding soft tissues and osseous structures are unremarkable. IMPRESSION: 1. No acute intracranial hemorrhage. 2. No CT findings of territorial ischemia. HS:Y
[2024-08-24] MEDS: POTASSIUM CHL 20MEQ/50ML 50 ML IV SCH (21:01)
--- NOTE | 2024-08-24 21:05 | DVHPN2 ---
Progress Note - Dictate Date Seen: Aug 24, 2024 Medical Necessity Reason Pt with a Central, PICC or Fol: Yes The following are medically ne: Central Line, Vigil Catheter Reason for vigil catheter: Strict I&O Subjective Patient seen and examined at bedside. Intubated on mechanical ventilator. Overnight events reviewed. vital signs Vital Sign Date Time Temp Pulse Resp B/P (MAP) Pulse Ox O2 Delivery O2 Flow Rate FiO2 08/24/24 20:30 88 18 145/73 (97) 100 08/24/24 20:00 30 08/24/24 20:00 Mechanical Ventilator+ 08/24/24 20:00 97.8 97.8 Total Intake and Output 08/23/24 08/23/24 08/24/24 14:59 22:59 06:59 Intake Total 75 ml 744 ml 827 ml Output Total 1125 ml 1100 ml Balance 75 ml -381 ml -273 ml medications Current Medications Medications Dose Ordered Sig/Kristen Route Start Time Stop Time Status Last Admin Dose Admin Sodium Chloride 10 ml Q8HR IV 08/11/24 14:00 08/24/24 16:09 10 ML Ondansetron HCl 4 mg Q4HP PRN IV 08/11/24 13:00 Docusate Sodium 100 mg BIDPRN PRN PO 08/11/24 13:00 Acetaminophen 650 mg Q6HP PRN PO 08/11/24 13:00 Albuterol 2.5 mg Q6HWA [facility] 08/11/24 18:00 08/24/24 18:05 2.5 MG Ipratropium [place] 0.5 mg Q6HWA NEB 08/11/24 18:00 08/24/24 18:05 0.5 MG Latanoprost 1 drop QPM EACHEYE 08/11/24 18:00 08/24/24 18:09 1 DROP Patient Own Medication 1 drop BID EACHEYE 08/11/24 22:00 08/24/24 10:00 1 DROP Albuterol 2.5 mg Q2HPRN PRN NEB 08/11/24 20:45 08/20/24 10:09 2.5 MG Ipratropium [place] 0.5 mg Q2HPRN PRN NEB 08/11/24 20:45 08/20/24 10:09 0.5 MG Pantoprazole Sodium 40 mg DAILY IV 08/13/24 10:00 08/24/24 10:35 40 MG Sildenafil Citrate 20 mg TID@08,14,20 PO 08/14/24 14:00 08/24/24 20:52 20 MG Hydralazine HCl 10 mg Q6HP PRN IV 08/15/24 15:30 08/24/24 18:01 10 MG Purified Water 100 ml Q6HR GT 08/18/24 18:00 08/23/24 17:33 100 ML Labetalol HCl 20 mg Q2HPRN PRN IV 08/19/24 15:15 08/20/24 06:20 20 MG Amlodipine Besylate 10 mg DAILY PO 08/20/24 10:00 08/22/24 10:01 10 MG Clonidine HCl 0.1 mg BID PO 08/19/24 22:00 08/21/24 22:32 0.1 MG Methylprednisolone Sodium Succinate 20 mg Q12HR IV 08/20/24 22:00 08/24/24 10:36 20 MG Sodium Chloride 10 ml QSHIFT@10,22 IV 08/20/24 22:00 08/24/24 10:36 10 ML Carvedilol 12.5 mg Q12HR PO 08/21/24 22:00 08/24/24 10:48 12.5 MG Enteral Nutritional Formula 1,000 ml 40ML/HR GT 08/21/24 13:00 Furosemide 20 mg BIDD IV 08/23/24 06:00 08/24/24 18:00 20 MG Azithromycin 250 ml @ 125 mls/hr DAILY IV 08/24/24 10:00 08/24/24 10:37 125 MLS/HR Linezolid 300 ml @ 150 mls/hr Q12HR IV 08/23/24 22:00 08/24/24 10:37 150 MLS/HR Diagnostic Test (Pha) 1 strip ACHS 08/23/24 17:00 08/24/24 17:00 1 STRIP Insulin Human Regular ACHS SC 08/23/24 17:00 08/24/24 17:53 6 UNITS Dextrose 50 ml UD PRN IV 08/23/24 14:15 Micafungin Sodium 100 mg/Sodium Chloride 100 ml @ 100 mls/hr DAILY IV 08/25/24 10:00 Ertapenem 1 gm/ Sodium Chloride 50 ml @ 100 mls/hr DAILY IV 08/25/24 10:00 Future hold Bisacodyl [address] 08/24/24 14:15 Potassium Chloride 100 ml @ 50 mls/hr Q2H IV 08/24/24 22:00 08/25/24 01:59 UNV Potassium Chloride 50 ml @ 25 mls/hr Q2H IV 08/24/24 19:45 08/24/24 23:44 objective Gen.: Patient lying in bed in medical ICU. Intubated on mechanical ventilator. Head: Normocephalic, atraumatic. Eyes: PERRLA. Ears: Normal external anatomy. Throat: Endotracheal tube and orogastric tube in place. Neck: Supple, trachea midline. Chest: Transmitted breath sounds bilaterally. Decreased air entry bilaterally. No wheezing. Bibasilar crackles. Cardiovascular: Positive S1, positive S2. Regular rate and rhythm. Abdomen: Positive bowel sounds in all 4 quadrants. Soft, nontender, nondistended. : Vigil in place. Normal external genitalia. Rectal: Deferred. Skin: Warm, dry. Intact. Extremities: 2+ radial pulses bilaterally. No lower extremity edema. Neuro: Off sedation laboratory and microbiology Laboratory Tests 08/24/24 05:14 Test 08/24/24 05:14 Range/Units Serum Glucose 334 H 74-106 mg/dL Assessment/Plan Impression: Acute hypoxic respiratory failure Acute hypercarbic respiratory failure On mechanical ventilator Acute metabolic encephalopathy Shock, septic vs cardiogenic Bilateral pneumonia Obesity BMI 36.1 Mucous plugging Atelectasis Pulmonary hypertension, RVSP 51 mmHg (03/2024) COPD, Moderate obstructive ventilatory defect Reduced DLCO Events: Remains on vent support AC mode; RR 18, VT 400, PEEP 5, FiO2 30% Remains off sedation Head CT showed no acute intracranial hemorrhage or ischemia. ABG reviewed, compensated CXR reviewed, shows no acute disease. Devices in place. Continue antibiotics Continue antifungals Continue bronchodilators Steroids IV. Accu-Cheks, ISS. Diurese PRN Monitor renal function Tube feeds for nutritional support Awaiting for mentation to improve CPAP in AM. Labs and imaging reviewed. Rest of plan as noted below. Plan: s/p cardiac arrest. s/p intubation on mechanical ventilator. AC mode; RR 18, VT 400, PEEP 5, FiO2 30% Titrate FIO2 to keep O2 saturation above 90%. VAP bundle. Daily ABG and CXR while intubated Off sedation S/p therapeutic bronchoscopy on 08/12/24, removed mucous plugging from L6-L10 and R1-R3. S/p central line and arterial line placement See separate procedure notes for details of procedures. Pressors if necessary for hemodynamic support Titrate to keep mean arterial pressure greater than 65 mmHg Continue antibiotics. IV steroids Monitor renal function Monitor electrolytes. Supplement as necessary. Monitor ins and outs. GI prophylaxis. DVT prophylaxis. Prognosis: Poor given patient's multiple co-morbidities. Condition: Critical Rest of plan per hospitalist and other consultants. A total of 35 minutes of critical care time was spent reviewing the patient record, examining the patient, making a diagnostic and therapeutic plan, discussing this plan with the medical personnel, following up on diagnostic studies and following the patient for clinical stability excluding any and all procedures. At least 50% of this time was spent in direct, [id number] contact. Thank you, Dr. Strickland, for allowing me to participate in this patient's care. Further recommendations will depend on the patient's clinical course. Please do not hesitate to contact me if you have any questions or concerns. This medical document was created using an electronic medical record system with [employer] computerized dictation system. Although these documentations are being carefully reviewed, there may still be some phonetic and typographical changes. The errors are purely typographical, due to imperfection on the software program, and do not reflect any compromise in the patient's medical care. Dietary Evaluation Review Recommendations by RD: Protein Supplementation Comments: 1) Increase TF rate from 30 mL/hr to 35 mL/hr. Initiate Pro-Stat @ 30 mL bid. Goal rate (including Pro-Stat) will provide 1208 kcals, 77g Pro, and 1178 mL free H2O (including flushes) per 24 hrs. Goal rate will meet ~ 100% estimated daily energy needs and ~94% estimated daily protein needs 2) Initiate vitamin C @ 500 mg and zinc sulfate @ 220 mg qd for 7 days 3) Advance to cardiac diet when medically feasible, pending FREIGHT REPRESENTATIVE approval 4) F/u with cardiology and pulmonology 5) Continue to monitor I&O, labs, and skin integrity Expected Outcomes/Goals: 1) appetite and labs to improve 2) diet to advance 3) f/u in 2-3 Interpretation of weight loss: up to 20% in 1 year Plan discussed with: Other (KIKO Saavedra) Critical Care Time(min): 35 EDITH ANSARI MD Aug 24, 2024 21:05
[2024-08-24] MEDS ORDERED: POTASSIUM CHL 20MEQ/100ML 100 ML IV SCH (22:00)
[2024-08-25] VITALS (78 sets, daily range): BP systolic 107–163; BP diastolic 50–90; PULSE 71–99; RESP 10–24; TEMP 97.1–99.3; O2SAT 98–100
--- NOTE | 2024-08-25 | DVHPN2 ---
Progress Note - Dictate Date Seen: Aug 24, 2024 Medical Necessity Reason Pt with a Central, PICC or Fol: Yes The following are medically ne: Central Line, Vigil Catheter Reason for vigil catheter: Strict I&O Subjective Patient was seen and evaluated in follow up in the ICU. Patient is intubated and sedated on ventilator. 30% FiO2. Patient is awake, opens eyes and tracks however does not follow verbal commands or move extremities. WBC 20.1, CL 94, CO2 33, GLUC 302. vital signs Vital Sign Date Time Temp Pulse Resp B/P (MAP) Pulse Ox O2 Delivery O2 Flow Rate FiO2 08/24/24 12:45 67 18 118/76 (90) 100 30 08/24/24 12:00 98.5 98.5 08/24/24 08:00 Mechanical Ventilator+ Total Intake and Output 08/23/24 08/23/24 08/24/24 15:00 23:00 07:00 Intake Total 50 ml 744 ml 827 ml Output Total 1125 ml 1100 ml Balance 50 ml -381 ml -273 ml medications Current Medications Medications Dose Ordered Sig/Kristen Route Start Time Stop Time Status Last Admin Dose Admin Sodium Chloride 10 ml Q8HR IV 08/11/24 14:00 08/24/24 06:16 10 ML Ondansetron HCl 4 mg Q4HP PRN IV 08/11/24 13:00 Docusate Sodium 100 mg BIDPRN PRN PO 08/11/24 13:00 Acetaminophen 650 mg Q6HP PRN PO 08/11/24 13:00 Albuterol 2.5 mg Q6HWA NEB 08/11/24 18:00 08/24/24 12:55 2.5 MG Ipratropium [place] 0.5 mg Q6HWA NEB 08/11/24 18:00 08/24/24 12:55 0.5 MG Latanoprost 1 drop QPM EACHEYE 08/11/24 18:00 08/18/24 21:16 1 DROP Patient Own Medication 1 drop BID EACHEYE 08/11/24 22:00 08/24/24 10:00 1 DROP Albuterol 2.5 mg Q2HPRN PRN NEB 08/11/24 20:45 08/20/24 10:09 2.5 MG Ipratropium [place] 0.5 mg Q2HPRN PRN NEB 08/11/24 20:45 08/20/24 10:09 0.5 MG Pantoprazole Sodium 40 mg DAILY IV 08/13/24 10:00 08/24/24 10:35 40 MG Sildenafil Citrate 20 mg TID@08,14,20 PO 08/14/24 14:00 08/24/24 10:35 20 MG Hydralazine HCl 10 mg Q6HP PRN IV 08/15/24 15:30 08/19/24 06:22 10 MG Purified Water 100 ml Q6HR GT 08/18/24 18:00 08/23/24 17:33 100 ML Labetalol HCl 20 mg Q2HPRN PRN IV 08/19/24 15:15 08/20/24 06:20 20 MG Amlodipine Besylate 10 mg DAILY PO 08/20/24 10:00 08/22/24 10:01 10 MG Clonidine HCl 0.1 mg BID PO 08/19/24 22:00 08/21/24 22:32 0.1 MG Methylprednisolone Sodium Succinate 20 mg Q12HR IV 08/20/24 22:00 08/24/24 10:36 20 MG Sodium Chloride 10 ml QSHIFT@10,22 IV 08/20/24 22:00 08/24/24 10:36 10 ML Carvedilol 12.5 mg Q12HR PO 08/21/24 22:00 08/24/24 10:48 12.5 MG Enteral Nutritional Formula 1,000 ml 40ML/HR GT 08/21/24 13:00 Furosemide 20 mg BIDD IV 08/23/24 06:00 08/24/24 06:24 20 MG Azithromycin 250 ml @ 125 mls/hr DAILY IV 08/24/24 10:00 08/24/24 10:37 125 MLS/HR Linezolid 300 ml @ 150 mls/hr Q12HR IV 08/23/24 22:00 08/24/24 10:37 150 MLS/HR Diagnostic Test (Pha) 1 strip ACHS 08/23/24 17:00 08/24/24 11:30 1 STRIP Insulin Human Regular ACHS SC 08/23/24 17:00 08/24/24 12:13 8 UNITS Dextrose 50 ml UD PRN IV 08/23/24 14:15 Micafungin Sodium 100 mg/Sodium Chloride 100 ml @ 100 mls/hr DAILY IV 08/25/24 10:00 Ertapenem 1 gm/ Sodium Chloride 50 ml @ 100 mls/hr DAILY IV 08/25/24 10:00 Future hold Bisacodyl 10 mg QHSP PRN NE 08/24/24 14:15 objective GENERAL: Intubated on ventilator. LUNGS: Decreased breath sounds. CARDIOVASCULAR: Heart sounds are good. ABDOMEN: Soft. laboratory and microbiology Laboratory Tests 08/24/24 05:14 Test 08/24/24 05:14 Range/Units Serum Glucose 334 H 74-106 mg/dL Problem List Metabolic encephalopathy/toxic encephalopathy/hypoxic encephalopathy. Status post cardiac arrest. Acute diastolic heart failure. New onset AFib. Paroxysmal Bradycardia . Acute hypoxic respiratory failure. Acute exacerbation of COPD. Pulmonary hypertension. Transaminitis. HECTOR. Pneumonia. Anemia of chronic disease. Obesity. Rheumatoid arthritis. Gout. Hypertension. Hyperlipidemia. Assessment/Plan Continued all current supportive medical care. Coreg, Amlodipine, Clonidine. DVT and GI prophylactics. Diuretics with Lasix. IV Labetalol for SBP >150 IV Hydralazine for SBP > 150. IV antibiotics as ordered. Additional plan as per the hospital course. Critical care time of 45 minutes provided to include time spent evaluation of patient at bedside, when appropriate patient/family education for diagnosis, treatment plan, review of pertinent medical information and discussion of care with specialty providers and PCP. Mechanical ventilator parameters, treatment and adjustments have personally been reviewed by me and treatment plan by clinician oncology has also been reviewed. Dietary Evaluation Review Recommendations by RD: Protein Supplementation Comments: 1) Increase TF rate from 30 mL/hr to 35 mL/hr. Initiate Pro-Stat @ 30 mL bid. Goal rate (including Pro-Stat) will provide 1208 kcals, 77g Pro, and 1178 mL free H2O (including flushes) per 24 hrs. Goal rate will meet ~ 100% estimated daily energy needs and ~94% estimated daily protein needs 2) Initiate vitamin C @ 500 mg and zinc sulfate @ 220 mg qd for 7 days 3) Advance to cardiac diet when medically feasible, pending ENERGY ENGINEER approval 4) F/u with cardiology and pulmonology 5) Continue to monitor I&O, labs, and skin integrity Expected Outcomes/Goals: 1) appetite and labs to improve 2) diet to advance 3) f/u in 2-3 Interpretation of weight loss: up to 20% in 1 year Plan discussed with: Other ASHLEY BRADFORD MD Aug 24, 2024 14:44
[2024-08-25 07:19] LABS: Base Excess 4.7 mmol/L (-2.0-3.0)
--- NOTE | 2024-08-25 08:00 | DVHPNRES ---
Progress Note Date Seen: Aug 25, 2024 Resident Creating Document: CALI WITT Medical Necessity Reason Pt with a Central, PICC or Fol: Yes The following are medically ne: Central Line, Vigil Catheter Reason for vigil catheter: Strict I&O Subjective Review of Systems Patient is 73 years old female with past medical history of asthma, COPD, on home oxygen NCO2 2L/mnt, CAD-MD, CHF, pulmonary hypertension, hypertension, hyperlipidemia, rheumatoid arthritis, gout, anemia came to the hospital with shortness of breaths. Information gathered from reviewing the chart and talking to the family. Having chest pain and shortness of breaths for couple of days before she came into the hospital. Patient was admitted the hospital 1 month before with the abdominal pain, pneumonia. Following discharge patient was sent to [facility] for rehabilitation. Significant initial lab workup-troponin I with a normal limit, BNP elevated 273. CXR-Patchy bibasilar airspace opacities. Cardiomegaly. CT head-08/12/2024 -Very mild cortical atrophy otherwise unremarkable study. CT angio on 08/13/2024- grossly enlarged the main pulmonary artery measures 5.3 cm in caliber, right pulmonary artery measures 3.13 cm in caliber in the left pulmonary artery measures 2.67 cm in caliber. Heart is enlarged. There is a posterior consolidated right lower lobe evidence for bilateral interstitial infiltrates and possibly edema. No evidence for pulmonary embolus the ascending aorta measures 3.77 cm. Also bilateral small consolidates in the posterior right and left lower lobes. Grossly enlarged pulmonary arteries underlying pulmonary arterial hypertension is suspected no pulmonary embolus. There are bilateral infiltrates in the lung bases. One 08/13/2024 Doppler study of the lower extremity negative for DVT. ECHO 2D on 08/14/24 revealed-LVEF 60%, concentric left ventricular hypertrophy with right ventricle and right atrial enlargement. On 08/14/2024- MRI of the brain-no acute abnormality noted. On 08/18/2023 CT head- No acute intracranial abnormality.. Patient had several visits over the year in this hospital. In July 17, 2024, April 16, 2024, June 16, 2023, February 2023, August 14, 2022, September 2012, August 2012, August 2012 Code assist was called on 08/12/2024-patient was found to have unresponsive, stiffness of the bilateral upper and lower extremity, bradycardia, agonal respiration. Code assist was converted to code blue were severe was initiated by bedside RN. Status post CPR. ROSC 20 minutes Patient was intubated on 08/12/2024. Left internal jugular central line was placed on 08/12/2024 Bronchoscopy was done on 08/12/2024-impression- Left lower lobe atelectasis due to mucous plugging. Mucous plugging from L6-L10 and R1-R3 Echo 2D- 04/12/2024 revealed an LVEF of 50% with moderate LVH, RV and left atrium enlargement. The patient also underwent a recent right and left cardiac catheterization on 12/2023 revealing no significant coronary artery disease, elevated left ventricular end-diastolic pressures indicating diastolic heart failure, and pulmonary hypertension deemed to be multifactorial primarily secondary to diastolic heart failure in addition to chronic lung processes for which she was initiated on Sildenafil therapy on 04/2024. Patient had nuclear stress test in -03/19/2023 negative for ischemia, LVEF 59% PMH-heart failure, COPD, asthma, pulmonary hypertension, CAD, MD, hypertension, hyperlipidemia, diabetes mellitus type 2, COPD, asthma, gout, rheumatoid arthritis, anemia PSH- tubal ligation, right foot surgery, tonsillectomy, bilateral total knee replacement, right eye surgery, Allergy- , levofloxacin, ceftriaxone Personal History/ Social History- No history of smoking, alcohol and other drug abuse Patient was seen today for clinical evaluation. Labs and chart reviewed. Overnight patient's BP ranging from 118-158/61-99, pulse 71-94 temperature-97.2-98.5 I/O , intake 1728, output 1200, negative balance 528 Patient's eye opening but no communication, Patient was Started on ertapenem ON 08/23/2024 urine culture negative Ordered for surgeon consult for tracheostomy tube in place Lab workup CT head on 08/24/2024-1. No acute intracranial hemorrhage. 2. No CT findings of territorial ischemia. ABG -7.46, pCO2 41.2, PO2 88.9, bicarbonate 28.9 CXR no significant change WBC 7.1> 7.2> 14.1> 11.4> 9.3> 12.1>? 12.9 >12.9> 15.0> 13.9> 15.5> 16.1> 14.4> 18.2> 20.1> 21.3 Hemoglobin 13.1> 11.9> 10.8> 11.0> 10.5> 11.9> 12.5> 13.4> 12.9> 12.7> 11.9> 9.5> 11.6> 11.5> 11.9 platelet 276>> 302 264> 252> 229> 217> 228> 242> 295> 167> 221> 197> 148> 177> 177> 189 Sodium 137> 142> 147> 146> 148> 148> 143> 148>> 143 >140> 139> 140> 137> 138> 139> 140> 136> 136 Potassium> 3.9> 4.0> 3.7> 3.6> 3.7> 3.7> 3.5> 3.8> 3.5> 3.8> 3.9> 3.2> 3.2> 3.6> 3.7> 3.5> 4.1 Serum creatinine 0.92> 0.87> 1.22> 1.21> 1.19> 0.98> 0.78> 0.81>0.88> 0.74> 0.65> 0.74> 0.84> 0.91 BUN 18> 31> 26> 29> 26> 22> 24> 31> 23> 19> 19> 25> 23> 23 Serum> bilirubin 0.5> 0.6>0.5> 0.5 0.8> 1.2> 0.9 > 1.0> 0.8> 0.7 AST> 20 88> 50> 37> 43> 49> 61> 33> 28> 27 ALT 17> 91> 69> 56> 58> 70> 108> 80> 63> 53> 41 Blood culture no growth so far Respiratory Culture no growth Patient on antibiotic ertapenem Provider spoke to patient's daughter Ms. Nieves Levy,-[phone], discussed patient's current medical condition, plan of care, answered her questions Objective vital signs Vital Sign Date Time Temp Pulse Resp B/P (MAP) Pulse Ox O2 Delivery O2 Flow Rate FiO2 08/25/24 07:22 91 20 153/82 (105) 100 30 08/25/24 06:00 Mechanical Ventilator+ 08/25/24 04:00 97.2 97.2 Total Intake and Output 08/24/24 08/24/24 08/25/24 15:00 23:00 07:00 Intake Total 955 ml 757 ml Output Total 1325 ml 850 ml Balance -370 ml -93 ml medications Current Medications Medications Dose Ordered Sig/Kristen Route Start Time Stop Time Status Last Admin Dose Admin Sodium Chloride 10 ml Q8HR IV 08/11/24 14:00 08/25/24 06:20 10 ML Ondansetron HCl 4 mg Q4HP PRN IV 08/11/24 13:00 Docusate Sodium 100 mg BIDPRN PRN PO 08/11/24 13:00 Acetaminophen 650 mg Q6HP PRN PO 08/11/24 13:00 Albuterol 2.5 mg Q6HWA NEB 08/11/24 18:00 08/25/24 05:51 2.5 MG Ipratropium [place] 0.5 mg Q6HWA NEB 08/11/24 18:00 08/25/24 05:51 0.5 MG Latanoprost 1 drop QPM EACHEYE 08/11/24 18:00 08/24/24 18:09 1 DROP Patient Own Medication 1 drop BID EACHEYE 08/11/24 22:00 08/24/24 22:16 1 DROP Albuterol 2.5 mg Q2HPRN PRN NEB 08/11/24 20:45 08/20/24 10:09 2.5 MG Ipratropium [place] 0.5 mg Q2HPRN PRN NEB 08/11/24 20:45 08/20/24 10:09 0.5 MG Pantoprazole Sodium 40 mg DAILY IV 08/13/24 10:00 08/24/24 10:35 40 MG Sildenafil Citrate 20 mg TID@08,14,20 PO 08/14/24 14:00 08/24/24 20:52 20 MG Hydralazine HCl 10 mg Q6HP PRN IV 08/15/24 15:30 08/24/24 18:01 10 MG Purified Water 100 ml Q6HR GT 08/18/24 18:00 08/23/24 17:33 100 ML Labetalol HCl 20 mg Q2HPRN PRN IV 08/19/24 15:15 08/20/24 06:20 20 MG Amlodipine Besylate 10 mg DAILY PO 08/20/24 10:00 08/22/24 10:01 10 MG Clonidine HCl 0.1 mg BID PO 08/19/24 22:00 08/21/24 22:32 0.1 MG Methylprednisolone Sodium Succinate 20 mg Q12HR IV 08/20/24 22:00 08/24/24 22:15 20 MG Sodium Chloride 10 ml QSHIFT@10,22 IV 08/20/24 22:00 08/24/24 10:36 10 ML Carvedilol 12.5 mg Q12HR PO 08/21/24 22:00 08/24/24 22:14 12.5 MG Enteral Nutritional Formula 1,000 ml 40ML/HR GT 08/21/24 13:00 Furosemide 20 mg BIDD IV 08/23/24 06:00 08/25/24 06:23 20 MG Linezolid 300 ml @ 150 mls/hr Q12HR IV 08/23/24 22:00 08/24/24 22:16 150 MLS/HR Diagnostic Test (Pha) 1 strip ACHS 08/23/24 17:00 08/25/24 06:45 1 STRIP Insulin Human Regular ACHS SC 08/23/24 17:00 08/25/24 06:47 8 UNITS Dextrose 50 ml UD PRN IV 08/23/24 14:15 Bisacodyl 10 mg QHSP PRN [place] 08/24/24 14:15 Potassium Chloride 100 ml @ 50 mls/hr Q2H IV 08/24/24 22:00 08/25/24 01:59 UNV Azithromycin 250 ml @ 125 mls/hr 1200 IV 08/25/24 12:00 Micafungin Sodium 100 mg/Sodium Chloride 100 ml @ 100 mls/hr 0000 IV 08/26/24 00:00 Ertapenem 1 gm/ Sodium Chloride 50 ml @ 100 mls/hr 1400 IV 08/25/24 14:00 Examination General examination- patient on mechanical ventilation, HEENT- PEERLA, no acute nasal discharge Cardiovascular- S1-S2 audible, rate and rhythm regular, no murmur Respiratory- bilateral lung crackles+, + wheezing Gastrointestinal-nontender, bowel sound+. Nondistended Musculoskeletal-swan neck deformity on bilateral hands+, edematous bilateral hands Lower extremity- No leg edema Skin- no acute rash or purpura laboratory and microbiology Laboratory Tests 08/24/24 05:14 Test 08/24/24 05:14 Range/Units Serum Glucose 334 H 74-106 mg/dL Microbiology Date/Time Source Procedure Growth Status 08/23/24 18:36 Voided Urine Urine Culture - Preliminary Resulted 08/13/24 04:40 Blood Blood Culture - Final NO GROWTH AFTER 5 DAYS OF INCUBATION. Complete 08/13/24 02:49 Sputum Gram Stain - Final Complete 08/13/24 02:49 Sputum Respiratory Culture - Final Complete Problem List/Assessment/Plan Problem List/Assessment/Plan Assessment and plan Neurology # metabolic encephalopathy/toxic encephalopathy/hypoxic encephalopathy -status post cardiac arrest, status post CPR -patient on mechanical ventilation, -Reported anisocoria with right-sided slightly weaker -CT head very mild cortical atrophy -MRI of the brain- No acute intracranial pathology -continue current management Cardiovascular -Acute diastolic heart failure -New One set AF patient on DVT prophylaxis -paroxysmal Bradycardia -Echo 2D on 08/13/2024-LVEF 60%, concentric LVH with right ventricle and right atrial enlargement. -CAD -pulmonary hypertension -history of hypertension -hyperlipidemia -continue nebulization -continue Coreg 12.5 mg b.i.d.- hold if bradycardia Respiratory -acute hypoxic respiratory failure -acute exacerbation of COPD -pulmonary hypertension -failed CPAP trial on 08/18/2024 -Blood culture no growth so far -Urine culture [place] 50293 colony-forming units per mL yeast -Respiratory Culture preliminary no growth -continue nebulization -sildenafil 20 mg t.i.d. Gastrointestinal -transaminitis -monitor CMP Genitourinary/renal -HECTOR likely due to VMN -right kidney cyst in the lower pole -avoid dehydration and nephrotoxic drugs Infectious disease -? Septic shock -acute pneumonia Gram-positive versus Gram-negative -continue ertapenem as prescribed Hemato oncology -anemia of chronic disease -monitor CBC Endocrinology/ metabolic disorder -obesity Musculoskeletal -rheumatoid arthritis -gout -continue current management Skin or elementary -wound care consult in place PICC line ETT Vigil's catheter Goals of care/advance care planning Code status ; discussed with >25 minutes PUD prophylaxis: Pantoprazole DVT prophylaxis: Lovenox Plan discussed with Dr. Hernandez, nursing staff, daughter Total time spent on patient evaluation, chart review, assessment and plan, total critical time spent including monitoring mechanical ventilation excluding procedure 63 minutes Plan discussed with: Daughter, Other (RN) Dietary Evaluation Review Recommendations by RD: Protein Supplementation Comments: 1) Increase TF rate from 30 mL/hr to 35 mL/hr. Initiate Pro-Stat @ 30 mL bid. Goal rate (including Pro-Stat) will provide 1208 kcals, 77g Pro, and 1178 mL free H2O (including flushes) per 24 hrs. Goal rate will meet ~ 100% estimated daily energy needs and ~94% estimated daily protein needs 2) Initiate vitamin C @ 500 mg and zinc sulfate @ 220 mg qd for 7 days 3) Advance to cardiac diet when medically feasible, pending UPHOLSTERY TECH approval 4) F/u with cardiology and pulmonology 5) Continue to monitor I&O, labs, and skin integrity Expected Outcomes/Goals: 1) appetite and labs to improve 2) diet to advance 3) f/u in 2-3 Interpretation of weight loss: up to 20% in 1 year Date of Service: Aug 25, 2024 Billing Provider: ROSHAN HERNANDEZ MD Common Visit Codes: 56170-DMEMAZRZ CARE 30-74 MIN CALI WITT RESIDENT Aug 25, 2024 08:00 ROSHAN HERNANDEZ MD Aug 26, 2024 15:48
[2024-08-25 09:13] LABS: Hematocrit 36.3 % (36.0-46.0); Hemoglobin 11.9 g/dL (12.2-16.2); Mean Corpuscular Hemoglobin 27.6 pg (28.0-32.0); Mean Corpuscular Hgb Conc. 32.7 g/dL (32.0-36.0); Mean Corpuscular Volume 84.5 fL (80.0-100.0); Platelet Count (auto) 189 10^3/uL (140-450); Red Blood Cells 4.29 10^6/uL (4.0-5.20); Red Cell Distribution Width 15.2 % (11.8-14.3); White Blood Cell 21.3 10^3/uL (4.4-10.8)
[2024-08-25 09:30] LABS: Albumin 3.8 g/dL (3.2-4.8); Alkaline Phosphatase 86 U/L (46-116); Aspartate Aminotransferase 26 U/L (13-40); BUN/Creatinine Ratio 25.3 (10.0-20.0); Bilirubin, Total 0.5 mg/dL (0.2-1.0); Blood Urea Nitrogen 23 mg/dL (9-23); Calcium 9.4 mg/dL (8.7-10.4); Magnesium 2.1 mg/dL (1.6-2.6); Potassium 4.1 mmol/L (3.5-5.1); Sodium 136 mmol/L (136-145); Total Protein 6.1 g/dL (5.7-8.2)
[2024-08-25 09:33] LABS: Alanine Aminotransferase 41 U/L (7-40); Carbon Dioxide 33 mmol/L (20-31); Glucose 294 mg/dL (74-106)
[2024-08-25 09:39] LABS: INR 1.07 (0.9-1.15); Partial Thromboplastin Time 23.7 SEC (24.5-34.5); Prothrombin Time 11.3 sec (9.3-11.8)
[2024-08-25 09:51] LABS: Band Neutrophils % (manual) 0; Basophils % (manual) 0 (0.0-2.0); Blast Cells 0; Eosinophils % (manual) 0 (0-7); Metamyelocytes % 0; Myelocytes % 0; Promyelocytes % 0; Reactive Lymphocytes 0
--- NOTE | 2024-08-25 09:56 | DVHPN2 ---
Progress Note - Dictate Date Seen: Aug 25, 2024 Medical Necessity Reason Pt with a Central, PICC or Fol: Yes The following are medically ne: Central Line, Vigil Catheter Reason for vigil catheter: Strict I&O Subjective Ms. Recinos is a 73 years old female with a history of hypertension, dyslipidemia, coronary artery disease, heart attack, congestive heart failure, asthma, COPD on home oxygen, gout, anemia, the patient was admitted found her [facility] on 08/11/2024 with a chief company of shortness of breath I have seen and examined the patient, I have talked to her nurse. She is awake, her eyes closed with strong resistance when I tried to open them, she does not follow any verbal commands, she does not move the arms and legs ABG, 08/12/2024: Respiratory acidosis, hypoxia WBC/HB/PLT/MCV, 08/12/2024: 7.2/11.9/302/85.7, 08/19/2024: 13.9/12.9/167/86.5 CMP, 08/12/2024: Unremarkable HGB A1c, 04/11/2024: 500 TBI/AST/ALT/AP, 08/19/2024: 0.19/61/108/86 TG/HDL/LDL/HDL, 05/2023: 101/2026/186/45 Vitamin B12, 03/2024: 1161 TSH, 03/2024: 1.39 EEG 08/13/2024: Remarkably abnormal Extremity venous study, 08/13/2024: No evidence of right or left femoropopliteal venous thrombosis. Chest x-ray, 08/12/2024: Left central venous catheter overlies the left upper chest and may be not position. Clinical correlation advised. Endotracheal tube in satisfactory position. Left central venous catheter in uncertain position Chest x-ray, 08/15/24: Hazy bilateral opacities are unchanged CT head, 08/12/2024: Very mild cortical atrophy otherwise unremarkable study CT head, 08/17/2024: No acute intracranial abnormality CT head, 08/24/2024: 1. No acute intracranial hemorrhage. 2. No CT findings of territorial ischemia CTA chest, 08/13/2024: Grossly enlarged pulmonary arteries underlying pulmonary arterial hypertension is suspected no pulmonary embolus There are bilateral infiltrates in the lung bases MRI brain, 07/17/24: No acute intracranial pathology vital signs Vital Sign Date Time Temp Pulse Resp B/P (MAP) Pulse Ox O2 Delivery O2 Flow Rate FiO2 08/25/24 09:19 90 19 112/58 (76) 100 30 08/25/24 08:00 Mechanical Ventilator+ 08/25/24 04:00 97.2 97.2 Total Intake and Output 08/24/24 08/24/24 08/25/24 15:00 23:00 07:00 Intake Total 955 ml 757 ml Output Total 1325 ml 850 ml Balance -370 ml -93 ml medications Current Medications Medications Dose Ordered Sig/Kristen Route Start Time Stop Time Status Last Admin Dose Admin Ondansetron HCl 4 mg Q4HP PRN IV 08/11/24 13:00 Docusate Sodium 100 mg BIDPRN PRN PO 08/11/24 13:00 Acetaminophen 650 mg Q6HP PRN PO 08/11/24 13:00 Albuterol 2.5 mg Q6HWA NEB 08/11/24 18:00 08/25/24 05:51 2.5 MG Ipratropium [place] 0.5 mg Q6HWA NEB 08/11/24 18:00 08/25/24 05:51 0.5 MG Latanoprost 1 drop QPM EACHEYE 08/11/24 18:00 08/24/24 18:09 1 DROP Patient Own Medication 1 drop BID EACHEYE 08/11/24 22:00 08/25/24 08:00 1 DROP Albuterol 2.5 mg Q2HPRN PRN NEB 08/11/24 20:45 08/20/24 10:09 2.5 MG Ipratropium [place] 0.5 mg Q2HPRN PRN NEB 08/11/24 20:45 08/20/24 10:09 0.5 MG Pantoprazole Sodium 40 mg DAILY IV 08/13/24 10:00 08/24/24 10:35 40 MG Sildenafil Citrate 20 mg TID@08,14,20 PO 08/14/24 14:00 08/25/24 07:57 20 MG Hydralazine HCl 10 mg Q6HP PRN IV 08/15/24 15:30 08/24/24 18:01 10 MG Purified Water 100 ml Q6HR GT 08/18/24 18:00 08/23/24 17:33 100 ML Labetalol HCl 20 mg Q2HPRN PRN IV 08/19/24 15:15 08/20/24 06:20 20 MG Amlodipine Besylate 10 mg DAILY PO 08/20/24 10:00 08/22/24 10:01 10 MG Clonidine HCl 0.1 mg BID PO 08/19/24 22:00 08/21/24 22:32 0.1 MG Methylprednisolone Sodium Succinate 20 mg Q12HR IV 08/20/24 22:00 08/24/24 22:15 20 MG Sodium Chloride 10 ml QSHIFT@10,22 IV 08/20/24 22:00 08/24/24 10:36 10 ML Carvedilol 12.5 mg Q12HR PO 08/21/24 22:00 08/24/24 22:14 12.5 MG Enteral Nutritional Formula 1,000 ml 40ML/HR GT 08/21/24 13:00 Furosemide 20 mg BIDD IV 08/23/24 06:00 08/25/24 06:23 20 MG Linezolid 300 ml @ 150 mls/hr Q12HR IV 08/23/24 22:00 08/24/24 22:16 150 MLS/HR Diagnostic Test (Pha) 1 strip ACHS 08/23/24 17:00 08/25/24 06:45 1 STRIP Insulin Human Regular ACHS SC 08/23/24 17:00 08/25/24 06:47 8 UNITS Dextrose 50 ml UD PRN IV 08/23/24 14:15 Bisacodyl 10 mg QHSP PRN [place] 08/24/24 14:15 Potassium Chloride 100 ml @ 50 mls/hr Q2H IV 08/24/24 22:00 08/25/24 01:59 UNV Azithromycin 250 ml @ 125 mls/hr 1200 IV 08/25/24 12:00 Micafungin Sodium 100 mg/Sodium Chloride 100 ml @ 100 mls/hr 0000 IV 08/26/24 00:00 Ertapenem 1 gm/ Sodium Chloride 50 ml @ 100 mls/hr 1400 IV 08/25/24 14:00 objective The patient is well-nourished and well-developed with no distress. MENTAL STATUS: Subjective, CRANIAL NERVES: pupils are equal round and reactive to light briskly, normal external eye movement, normal sensation and motor examination in the lateral trigeminal nerve distribution, no facial weakness SENSATION: Responses to pain stimuli. MOTOR: Normal tone in the upper and lower extremity. Normal muscle bulk. No fasciculations. No spontaneous extremity movement REFLEXES: Deep tendon reflexes are symmetrical. No pathological reflexes. CEREBELLAR/COORDINATION: Deferred GAIT/STATION: deferred. laboratory and microbiology Laboratory Tests 08/25/24 08:17 Test 08/25/24 08:17 Range/Units Serum Glucose 294 H 74-106 mg/dL Problem List Coma, resolved Hypoxic encephalopathy Metabolic encephalopathy Toxic encephalopathy Cardiopulmonary arrest Respiratory failure Hypoxia Status post CPR Sepsis Pneumonia Acidosis Seizure-like activity to rule out seizure attack Reported anisocoria with right-sided slightly weaker on 08/14/2024, evident physical examination on 08/19/2024 Assessment/Plan Monitoring Supportive treatment ICU care Follow-up labs Respiratory support Stabilize vitals Antibiotics Oxygen DVT prophylaxis GI prophylaxis Up to chair Physical therapy More recommendation per clinical course This medical document was created using an electronic medical record system with [employer] dictation system. Although this document has been carefully reviewed, there may still be some phonetic and typographical errors. These areas are purely typographical due to imperfections of the software programs, and do not reflect any compromise in the patient's medical care. Prognosis poor Dietary Evaluation Review Recommendations by RD: Protein Supplementation Comments: 1) Increase TF rate from 30 mL/hr to 35 mL/hr. Initiate Pro-Stat @ 30 mL bid. Goal rate (including Pro-Stat) will provide 1208 kcals, 77g Pro, and 1178 mL free H2O (including flushes) per 24 hrs. Goal rate will meet ~ 100% estimated daily energy needs and ~94% estimated daily protein needs 2) Initiate vitamin C @ 500 mg and zinc sulfate @ 220 mg qd for 7 days 3) Advance to cardiac diet when medically feasible, pending PEDICURIST approval 4) F/u with cardiology and pulmonology 5) Continue to monitor I&O, labs, and skin integrity Expected Outcomes/Goals: 1) appetite and labs to improve 2) diet to advance 3) f/u in 2-3 Interpretation of weight loss: up to 20% in 1 year Plan discussed with: PATRIZIA Gottlieb MD Aug 25, 2024 09:56
[2024-08-25] MEDS ORDERED: MICAFUNGIN SODIUM 100 MG in SODIUM CHL 0.9% 100 ML IV SCH (10:00)
[2024-08-25] MEDS ORDERED: ERTAPENEM SOD INJ 1 GM in SODIUM CHL 0.9% 50 ML IV SCH (10:00)
[2024-08-25 10:14] LABS: Anion Gap 5 (5-15); Chloride 98 mmol/L (98-107)
[2024-08-25 11:29] LABS: Lymphocytes % (manual) 4 (10.0-50.0); Monocytes % (manual) 3 (0-12); Platelet Estimate Adequate
[2024-08-25] MEDS ORDERED: Glucerna 1.2 Cal 1Liter BOTTLE GT SCH (12:00)
[2024-08-25] MEDS: AZITHROMYCIN 500MG/ 250ML 250 ML IV SCH (12:36)
--- NOTE | 2024-08-25 14:17 | DVH ---
EXAM: XY CHEST PORTABLE Indication: Pain Pneumonia Technique: Single frontal view of the chest was obtained Comparison: XY CHEST PORTABLE on DOS: 08/24/24, XY CHEST PORTABLE on DOS: 08/23/24, XY CHEST PORTABLE o n DOS: 08/22/24, XY CHEST PORTABLE on DOS: 08/21/24, XY CHEST PORTABLE on DOS: 08/20/24 FINDINGS: Lines and Tubes: Enteric tube projects over expected region of the stomach. Endotracheal tube project s 4 cm above the olman. Lungs: Mild pulmonary vascular congestion. Pleura: No effusion. No pneumothorax. Cardiomediastinal contours: Cardiomegaly. Bones: No acute osseous abnormality. IMPRESSION: Cardiomegaly with mild pulmonary vascular congestion.
[2024-08-25] MEDS: ERTAPENEM SOD INJ 1 GM in SODIUM CHL 0.9% 50 ML IV SCH (15:34)
--- NOTE | 2024-08-25 17:16 | DVHINCON2 ---
Date of service: Aug 25, 2024 Family History: Alcoholism G8 SISTER, , Cause: Natural of unknown etiology, Not a twin Cardiovascular disease G8 MOTHER, , Cause: Natural of unknown etiology, Not a twin G8 BROTHER, , Cause: Natural of unknown etiology, Not a twin Glaucoma G8 FATHER Ischemic heart disease G8 MOTHER, , Cause: Natural of unknown etiology, Not a twin Allergies: Coded Allergies: Ceftriaxone (Verified Allergy, Intermediate, 12/31/23) RASH COUGH Levofloxacin (Verified Allergy, Unknown, 12/31/23) Home Meds Active Scripts Hydralazine Hcl (Hydralazine Hcl) 10 Mg Tab, 10 MG PO DAILY PRN for 20 Days, #20 TAB Prov:GIOVANY RIBERA RESIDENT 04/12/24 Reported Medications Latanoprost (LATANOPROST) 0.005 % Viktoriya, 1 DROP EACHEYE QPM for GLAUCOMA, #7.5 ML 3 Refills 12/31/23 Dorzolamide-Timolol (Dorzolamide Hcl/Timolol M) 1 Ml Viktoriya, 1 DROP EACHEYE BID, #10 ML 6 Refills 12/31/23 Cdmsdjtqjug-Rstzqyxaefqz-Fisvt (Trelegy Ellipta 200-62.5-25 Mcg/INH) 1 Aer Aer, 1 AER IN DAILY for COPD, AER 12/31/23 Sildenafil Citrate (SILDENAFIL CITRATE) 20 Mg Tab, 20 MG PO TID for PUL. HTN, TAB 12/31/23 Furosemide (Furosemide) 40 Mg Tab, 1 TAB PO DAILY 07/31/22 Carvedilol (Carvedilol) 25 Mg Tab, 1 TAB PO BID 07/31/22 Ferrous Sulfate (Ferosul) 325 Mg Tab, 1 TAB PO BID 07/31/22 Current Medications Current Medications Medications (Trade) Dose Ordered Sig/Kristen Route PRN Reason Start Time Stop Time Status Last Admin Micafungin Sodium 100 mg/Sodium Chloride 100 ml @ 100 mls/hr DAILY IV 08/25/24 10:00 08/25/24 07:43 DC Ertapenem 1 gm/ Sodium Chloride 50 ml @ 100 mls/hr DAILY IV 08/25/24 10:00 08/25/24 07:44 DC Potassium Chloride 100 ml @ 50 mls/hr Q2H IV 08/24/24 22:00 08/25/24 01:59 UNV Potassium Chloride 50 ml @ 25 mls/hr Q2H IV 08/24/24 19:45 08/24/24 23:44 DC 08/24/24 22:13 Azithromycin 250 ml @ 125 mls/hr 1200 IV 08/25/24 12:00 08/25/24 15:28 DC 08/25/24 12:36 Micafungin Sodium 100 mg/Sodium Chloride 100 ml @ 100 mls/hr 0000 IV 08/26/24 00:00 08/25/24 15:28 DC Ertapenem 1 gm/ Sodium Chloride 50 ml @ 100 mls/hr 1400 IV 08/25/24 14:00 08/25/24 15:34 Enteral Nutritional Formula (Glucerna 1.2 Jose Alejandro) 1,000 ml 35ML/HR GT 08/25/24 12:00 Amino Acid Protein (Pro-Stat Sugar Free) 30 ml BID GT 08/25/24 22:00 Vital Signs Vital Signs Date Time Temp Pulse Resp B/P (MAP) Pulse Ox O2 Delivery O2 Flow Rate FiO2 08/25/24 16:18 92 19 121/77 (92) 100 30 08/25/24 16:00 Mechanical Ventilator+ 08/25/24 12:00 99.3 99.3 Labs/Diagnostic Data Labs Test 08/25/24 11:26 08/25/24 08:17 08/25/24 06:42 08/24/24 05:14 Range/Units POC Glucose 286 H 70-106 mg/dl White Blood Count 21.3 H 4.4-10.8 10^3/uL Red Blood Count 4.29 4.0-5.20 10^6/uL Hemoglobin 11.9 L 12.2-16.2 g/dL Hematocrit 36.3 36.0-46.0 % Mean Corpuscular Volume 84.5 80.0-100.0 fL Mean Corpuscular Hemoglobin 27.6 L 28.0-32.0 pg Mean Corpuscular Hemoglobin Concent 32.7 32.0-36.0 g/dL Red Cell Distribution Width 15.2 H 11.8-14.3 % Platelet Count 189 140-450 10^3/uL Mean Platelet Volume 10.1 6.9-10.8 fL Neutrophils (%) (Auto) 37.0-80.0 % Lymphocytes (%) (Auto) 10.0-50.0 % Monocytes (%) (Auto) 0.0-12.0 % Basophils (%) (Auto) 0.0-2.0 % Neutrophils # (Auto) 1.6-8.6 10 ^3/uL Lymphocytes # (Auto) 0.4-5.4 10 ^3/uL Monocytes # (Auto) 0-1.3 10 ^3/uL Differential Total Cells Counted 100.0 100 Neutrophils % (Manual) 93 H 37.0-80.0 Band Neutrophils % (Manual) 0 Lymphocytes % (Manual) 4 L 10.0-50.0 Monocytes % (Manual) 3 0-12 Eosinophils % (Manual) 0 0-7 Basophils % (Manual) 0 0.0-2.0 Metamyelocytes % (manual) 0 Myelocytes % (Manual) 0 Promyelocytes % (Manual) 0 Blast Cells % (Manual) 0 Reactive Lymphocytes 0 Platelet Estimate Adequate Prothrombin Time 11.3 9.3-11.8 sec Prothrombin Time INR 1.07 0.9-1.15 Activated Partial Thromboplast Time 23.7 L 24.5-34.5 SEC Sodium Level 136 136-145 mmol/L Potassium Level 4.1 3.5-5.1 mmol/L Chloride Level 98 98-107 mmol/L Carbon Dioxide Level 33 H 20-31 mmol/L Anion Gap 5 5-15 Blood Urea Nitrogen 23 9-23 mg/dL Creatinine 0.91 0.550-1.02 mg/dL Glomerular Filtration Rate Calc 67 >90 mL/min BUN/Creatinine Ratio 25.3 H 10.0-20.0 Serum Glucose 294 H 74-106 mg/dL Calcium Level 9.4 8.7-10.4 mg/dL Magnesium Level 2.1 1.6-2.6 mg/dL Total Bilirubin 0.5 0.2-1.0 mg/dL Aspartate Amino Transferase (AST) 26 13-40 U/L Alanine Aminotransferase (ALT) 41 H 7-40 U/L Alkaline Phosphatase 86 46-116 U/L Total Protein 6.1 5.7-8.2 g/dL Albumin 3.8 3.2-4.8 g/dL Blood Gas Specimen Type Arterial Blood Gas Sample Site Right radial Blood Gas Patient Temperature 37.0 Arterial Blood Date Drawn [id number] Arterial Blood pH 7.464 H 7.350-7.450 Arterial Blood Partial Pressure CO2 41.2 32.0-45.0 mmHg Arterial Blood Partial Pressure O2 88.9 83.0-108.0 mmHg Arterial Blood HCO3 28.9 H 21.0-28.0 mmol/L Arterial Blood Oxygen Saturation 96.6 94.0-98.0 % Arterial Blood Base Excess 4.7 H -2.0-3.0 mmol/L Arterial Blood Oxyhemoglobin 95.3 94.0-98.0 % Arterial Blood Carboxyhemoglobin 0.8 0.5-1.5 % Arterial Blood Methemoglobin 0.5 0.0-1.5 % Harpreet Test Modified Blood Gas Total Hemoglobin 13.00 12.0-16.0 g/dL Blood Gas Set Respiration Rate 18.0 Blood Gas Modality Vent - ac FiO2 % 30.0 Blood Gas Tidal Volume 400.0 Blood Gas PEEP or CPAP 5.0 Eosinophils (%) (Auto) 0.0 0.0-7.0 % Eosinophils # (Auto) 0 0-0.8 10 ^3/uL Basophils # (Auto) 0 0-0.2 10 ^3/uL Nucleated Red Blood Cells 0.0 % B-Type Natriuretic Peptide 301.08 0-100 pg/mL Random Vancomycin Level 18.1 H 5-10 ug/mL Test 08/23/24 18:36 08/23/24 05:35 08/22/24 16:04 08/16/24 06:32 Range/Units Urine Color Colorless Yellow Urine Clarity Turbid H Clear Urine pH 6.5 5.0-9.0 Urine Specific [place] 1.006 1.001-1.035 Urine Protein Negative Negative Urine Ketones Negative Negative Urine Blood 2+ H Negative /uL Urine Nitrite Negative Negative Urine Bilirubin Negative Negative Urine Urobilinogen Normal Negative mg/dL Urine Leukocyte Esterase 3+ Negative /uL Urine RBC 110 0 - 4 /hpf Urine WBC Clumps Present None Seen /hpf Urine Microscopic WBC 80 H 0-5 /HPF Urine Squamous Epithelial Cells None seen <5 /hpf Urine Bacteria Few H None Seen /hpf Urine Mucus Few None Seen Urine Yeast (Budding) Few None Seen /hpf Urine Glucose 2+ H Normal mg/dL Creatine Kinase 22 L 34-145 U/L Vancomycin Level Trough 25.4 H 5-10 ug/mL Blood Gas Comments Test 08/14/24 04:30 08/12/24 21:25 08/12/24 15:55 08/12/24 15:28 Range/Units Urine Uric Acid Crystals Many None Seen /hpf Urine Hyaline Casts Few 0 - 2 /lpf Blood Gas Spontaneous Rate 20 Blood Gas Spontaneous Tidal Volume 400 Bl Gas Inspiratory/Expiratory Ratio 1:2.4 Specimen Drawn By Rocael damon rt D-Dimer, Quantitative 22.61 H 0.0-0.49 mg/L FEU Blood Gas Inspiratory Pressure 33.0 Test 08/12/24 12:20 08/11/24 11:40 Range/Units Blood Gas Liter Flow 15.00 Blood Gas Critical Value Read Back Yes Blood Gas Notified Whom Blood Gas Notified Time [id number] Blood Gas Notified By Bdownard tube molder fiberglass Troponin I High Sensitivity 23 </=34 ng/L Microbiology Date/Time Source Procedure Growth Status 08/23/24 18:36 Voided Urine Urine Culture - Preliminary Resulted 08/13/24 04:40 Blood Blood Culture - Final NO GROWTH AFTER 5 DAYS OF INCUBATION. Complete 08/13/24 02:49 Sputum Gram Stain - Final Complete 08/13/24 02:49 Sputum Respiratory Culture - Final Complete Assessment [id number] VENTILATOR DEPENDENCE CONSIDER TRACH BASED ON FAMILY DECISION Plan discussed with: Other SHELBY OLMOS MD Aug 25, 2024 17:16
--- NOTE | 2024-08-25 18:09 | DVHINCON2 ---
DATE OF CONSULTATION: 08/25/2024 HISTORY OF PRESENT ILLNESS: This patient is 73 years old, intubated, not able to give history. Most of the information obtained from the records and nursing staff and family. They were present at the bedside. I was asked to see her regarding a possibility of elective tracheostomy. She has been intubated for more than two weeks and she has history of asthma, COPD, home oxygen, hypertension, rheumatoid arthritis and was in rehab for pneumonia in ____. She came in with shortness of breath. Chest x-ray showed opacities and was intubated. PAST MEDICAL HISTORY: CAD, CHF, hypertension. PAST SURGICAL HISTORY: Please refer to records. She has had right foot total knee replacement, tubal ligation and a tonsillectomy. PHYSICAL EXAMINATION: VITAL SIGNS: Afebrile, stable signs. Intubated. CHEST AND LUNGS: Clear. HEART: Within normal limits. ABDOMEN: Soft. NEUROLOGIC: Not assessed. CLINICAL IMPRESSION: Ventilator dependence. PLAN: Will be to consider tracheostomy. Family is going to decide and let us know and then she can be planned for that elective procedure. MD MANUEL Cummings/ALIDA/CHRISTIAN TID: [id number] RECEIPT: [id number] cc:
--- NOTE | 2024-08-25 22:05 | DVHPN2 ---
Progress Note - Dictate Date Seen: Aug 25, 2024 Medical Necessity Reason Pt with a Central, PICC or Fol: Yes The following are medically ne: Central Line, Vigil Catheter Reason for vigil catheter: Strict I&O Subjective Patient was seen and evaluated in follow up in the ICU. Patient is intubated and sedated on ventilator. 30% FiO2. Patient is awake. Does not follow commands. Family to discuss possible trach. WBC 21.3, CO2 33, ALT 41.Chest x-ray shows cardiomegaly with mild pulmonary vascular congestion. vital signs Vital Sign Date Time Temp Pulse Resp B/P (MAP) Pulse Ox O2 Delivery O2 Flow Rate FiO2 08/25/24 21:50 86 19 142/67 (92) 100 30 08/25/24 20:00 98.2 98.2 08/25/24 18:00 Mechanical Ventilator+ Total Intake and Output 08/24/24 08/24/24 08/25/24 15:00 23:00 07:00 Intake Total 955 ml 757 ml Output Total 1325 ml 850 ml Balance -370 ml -93 ml medications Current Medications Medications Dose Ordered Sig/Kristen Route Start Time Stop Time Status Last Admin Dose Admin Ondansetron HCl 4 mg Q4HP PRN IV 08/11/24 13:00 Docusate Sodium 100 mg BIDPRN PRN PO 08/11/24 13:00 Acetaminophen 650 mg Q6HP PRN PO 08/11/24 13:00 Albuterol 2.5 mg Q6HWA NEB 08/11/24 18:00 08/25/24 18:29 2.5 MG Ipratropium [place] 0.5 mg Q6HWA NEB 08/11/24 18:00 08/25/24 18:29 0.5 MG Latanoprost 1 drop QPM EACHEYE 08/11/24 18:00 08/25/24 17:58 1 DROP Patient Own Medication 1 drop BID EACHEYE 08/11/24 22:00 08/25/24 08:00 1 DROP Albuterol 2.5 mg Q2HPRN PRN NEB 08/11/24 20:45 08/20/24 10:09 2.5 MG Ipratropium [place] 0.5 mg Q2HPRN PRN NEB 08/11/24 20:45 08/20/24 10:09 0.5 MG Pantoprazole Sodium 40 mg DAILY IV 08/13/24 10:00 08/25/24 11:14 40 MG Sildenafil Citrate 20 mg TID@08,14,20 PO 08/14/24 14:00 08/25/24 20:48 20 MG Hydralazine HCl 10 mg Q6HP PRN IV 08/15/24 15:30 08/24/24 18:01 10 MG Labetalol HCl 20 mg Q2HPRN PRN IV 08/19/24 15:15 08/20/24 06:20 20 MG Amlodipine Besylate 10 mg DAILY PO 08/20/24 10:00 08/25/24 11:15 10 MG Clonidine HCl 0.1 mg BID PO 08/19/24 22:00 08/25/24 12:35 0.1 MG Sodium Chloride 10 ml QSHIFT@10,22 IV 08/20/24 22:00 08/25/24 11:14 10 ML Carvedilol 12.5 mg Q12HR PO 08/21/24 22:00 08/25/24 17:54 12.5 MG Furosemide 20 mg BIDD IV 08/23/24 06:00 08/25/24 17:58 20 MG Diagnostic Test (Pha) 1 strip ACHS 08/23/24 17:00 08/25/24 17:00 1 STRIP Insulin Human Regular ACHS SC 08/23/24 17:00 08/25/24 17:57 6 UNITS Dextrose 50 ml UD PRN IV 08/23/24 14:15 Bisacodyl 10 mg QHSP PRN FL 08/24/24 14:15 Potassium Chloride 100 ml @ 50 mls/hr Q2H IV 08/24/24 22:00 08/25/24 01:59 UNV Ertapenem 1 gm/ Sodium Chloride 50 ml @ 100 mls/hr 1400 IV 08/25/24 14:00 08/25/24 15:34 100 MLS/HR Enteral Nutritional Formula 1,000 ml 35ML/HR GT 08/25/24 12:00 Amino Acid Protein 30 ml BID GT 08/25/24 22:00 objective GENERAL: Intubated on ventilator. LUNGS: Decreased breath sounds. CARDIOVASCULAR: Heart sounds are good. ABDOMEN: Soft. laboratory and microbiology Laboratory Tests 08/25/24 08:17 Test 08/25/24 08:17 Range/Units Serum Glucose 294 H 74-106 mg/dL Problem List Metabolic encephalopathy/toxic encephalopathy/hypoxic encephalopathy. Status post cardiac arrest. Acute diastolic heart failure. New onset AFib. Paroxysmal Bradycardia . Acute hypoxic respiratory failure. Acute exacerbation of COPD. Pulmonary hypertension. Transaminitis. HECTOR. Pneumonia. Anemia of chronic disease. Obesity. Rheumatoid arthritis. Gout. Hypertension. Hyperlipidemia. Assessment/Plan Continued all current supportive medical care. Coreg, Amlodipine, Clonidine. DVT and GI prophylactics. Diuretics with Lasix. IV Labetalol for SBP >150 IV Hydralazine for SBP > 150. IV antibiotics as ordered. Additional plan as per the hospital course. Critical care time of 45 minutes provided to include time spent evaluation of patient at bedside, when appropriate patient/family education for diagnosis, treatment plan, review of pertinent medical information and discussion of care with specialty providers and PCP. Mechanical ventilator parameters, treatment and adjustments have personally been reviewed by me and treatment plan by washing tub operator has also been reviewed. Dietary Evaluation Review Recommendations by RD: Protein Supplementation Comments: 1) Increase TF rate from 30 mL/hr to 35 mL/hr. Initiate Pro-Stat @ 30 mL bid. Goal rate (including Pro-Stat) will provide 1208 kcals, 77g Pro, and 1178 mL free H2O (including flushes) per 24 hrs. Goal rate will meet ~ 100% estimated daily energy needs and ~94% estimated daily protein needs 2) Initiate vitamin C @ 500 mg and zinc sulfate @ 220 mg qd for 7 days 3) Advance to cardiac diet when medically feasible, pending DRIVE AWAY DRIVER approval 4) F/u with cardiology and pulmonology 5) Continue to monitor I&O, labs, and skin integrity Expected Outcomes/Goals: 1) appetite and labs to improve 2) diet to advance 3) f/u in 2-3 Interpretation of weight loss: up to 20% in 1 year Plan discussed with: ASHLEY Waggoner MD Aug 25, 2024 22:05
[2024-08-25] MEDS: Pro-Stat SF 30ml Vanilla GT SCH (22:12)
[2024-08-26] VITALS (58 sets, daily range): BP systolic 90–125; BP diastolic 42–80; PULSE 64–100; RESP 13–21; TEMP 97.4–98.9; O2SAT 96–100
[2024-08-26] MEDS ORDERED: MICAFUNGIN SODIUM 100 MG in SODIUM CHL 0.9% 100 ML IV SCH
--- NOTE | 2024-08-26 05:16 | DVH ---
EXAM: XR Chest, 1 View CLINICAL INDICATION: PNA TECHNIQUE: Frontal view of the chest. COMPARISON: XY CHEST PORTABLE on DOS: 08/25/24, XY CHEST PORTABLE on DOS: 08/24/24, XY CHEST PORTABLE on DOS: 08/23/24, XY CHEST PORTABLE on DOS: 08/22/24, XY CHEST PORTABLE on DOS: 08/21/24, XR Chest date d 08/25/2024 FINDINGS: LUNGS AND PLEURAL SPACES: Pulmonary venous congestion. No consolidation. No pneumothorax. HEART: Unremarkable. No cardiomegaly. MEDIASTINUM: Unremarkable. Normal mediastinal contour. BONES/JOINTS: Unremarkable. No acute fracture. TUBES, LINES AND DEVICES: The endotracheal tube (ETT) is in satisfactory position. Enteric tube ti p cannot be seen but is below the diaphragm. OTHER FINDINGS: . IMPRESSION: Pulmonary venous congestion.
[2024-08-26 05:29] LABS: Basophils # (auto) 0 10 ^3/uL (0-0.2); Basophils % (auto) 0.2 % (0.0-2.0); Eosinophils # (auto) 0 10 ^3/uL (0-0.8); Eosinophils % (auto) 0.1 % (0.0-7.0); Hematocrit 34.7 % (36.0-46.0); Hemoglobin 11.3 g/dL (12.2-16.2); Lymphocytes % (auto) 5.2 % (10.0-50.0); Mean Corpuscular Hemoglobin 27.6 pg (28.0-32.0); Mean Corpuscular Hgb Conc. 32.7 g/dL (32.0-36.0); Mean Corpuscular Volume 84.3 fL (80.0-100.0); Monocytes # (auto) 1.3 10 ^3/uL (0-1.3); Monocytes % (auto) 6.5 % (0.0-12.0); Neutrophils # (auto) 17.3 10 ^3/uL (1.6-8.6); Platelet Count (auto) 179 10^3/uL (140-450); Red Blood Cells 4.12 10^6/uL (4.0-5.20); Red Cell Distribution Width 15.3 % (11.8-14.3); White Blood Cell 19.7 10^3/uL (4.4-10.8)
[2024-08-26 05:34] LABS: Alanine Aminotransferase 33 U/L (7-40); Alkaline Phosphatase 81 U/L (46-116); Anion Gap 3 (5-15); Aspartate Aminotransferase 23 U/L (13-40); BUN/Creatinine Ratio 33.3 (10.0-20.0); Calcium 9.7 mg/dL (8.7-10.4); Chloride 100 mmol/L (98-107); Potassium 3.7 mmol/L (3.5-5.1); Sodium 138 mmol/L (136-145); Total Protein 5.8 g/dL (5.7-8.2)
[2024-08-26 05:35] LABS: Albumin 3.7 g/dL (3.2-4.8); Bilirubin, Total 0.5 mg/dL (0.2-1.0)
[2024-08-26 05:43] LABS: Blood Urea Nitrogen 26 mg/dL (9-23); Carbon Dioxide 35 mmol/L (20-31); Glucose 124 mg/dL (74-106)
[2024-08-26 07:00] LABS: Base Excess 5.5 mmol/L (-2.0-3.0)
--- NOTE | 2024-08-26 07:02 | DVHPNRES ---
Progress Note Date Seen: Aug 26, 2024 Resident Creating Document: CALI WITT Medical Necessity Reason Pt with a Central, PICC or Fol: Yes The following are medically ne: Central Line, Vigil Catheter Reason for vigil catheter: Strict I&O Subjective Review of Systems Patient is 73 years old female with past medical history of asthma, COPD, on home oxygen NCO2 2L/mnt, CAD-FL, CHF, pulmonary hypertension, hypertension, hyperlipidemia, rheumatoid arthritis, gout, anemia came to the hospital with shortness of breaths. Information gathered from reviewing the chart and talking to the family. Having chest pain and shortness of breaths for couple of days before she came into the hospital. Patient was admitted the hospital 1 month before with the abdominal pain, pneumonia. Following discharge patient was sent to [facility] for rehabilitation. Significant initial lab workup-troponin I with a normal limit, BNP elevated 273. CXR-Patchy bibasilar airspace opacities. Cardiomegaly. CT head-08/12/2024 -Very mild cortical atrophy otherwise unremarkable study. CT angio on 08/13/2024- grossly enlarged the main pulmonary artery measures 5.3 cm in caliber, right pulmonary artery measures 3.13 cm in caliber in the left pulmonary artery measures 2.67 cm in caliber. Heart is enlarged. There is a posterior consolidated right lower lobe evidence for bilateral interstitial infiltrates and possibly edema. No evidence for pulmonary embolus the ascending aorta measures 3.77 cm. Also bilateral small consolidates in the posterior right and left lower lobes. Grossly enlarged pulmonary arteries underlying pulmonary arterial hypertension is suspected no pulmonary embolus. There are bilateral infiltrates in the lung bases. One 08/13/2024 Doppler study of the lower extremity negative for DVT. ECHO 2D on 08/14/24 revealed-LVEF 60%, concentric left ventricular hypertrophy with right ventricle and right atrial enlargement. On 08/14/2024- MRI of the brain-no acute abnormality noted. On 08/18/2023 CT head- No acute intracranial abnormality.. Patient had several visits over the year in this hospital. In July 17, 2024, April 16, 2024, June 16, 2023, February 2023, August 14, 2022, September 2012, August 2012, August 2012 Code assist was called on 08/12/2024-patient was found to have unresponsive, stiffness of the bilateral upper and lower extremity, bradycardia, agonal respiration. Code assist was converted to code blue were severe was initiated by bedside RN. Status post CPR. ROSC 20 minutes Patient was intubated on 08/12/2024. Left internal jugular central line was placed on 08/12/2024 Bronchoscopy was done on 08/12/2024-impression- Left lower lobe atelectasis due to mucous plugging. Mucous plugging from L6-L10 and R1-R3 Echo 2D- 04/12/2024 revealed an LVEF of 50% with moderate LVH, RV and left atrium enlargement. The patient also underwent a recent right and left cardiac catheterization on 12/2023 revealing no significant coronary artery disease, elevated left ventricular end-diastolic pressures indicating diastolic heart failure, and pulmonary hypertension deemed to be multifactorial primarily secondary to diastolic heart failure in addition to chronic lung processes for which she was initiated on Sildenafil therapy on 04/2024. Patient had nuclear stress test in -03/19/2023 negative for ischemia, LVEF 59% PMH-heart failure, COPD, asthma, pulmonary hypertension, CAD, [place], hypertension, hyperlipidemia, diabetes mellitus type 2, COPD, asthma, gout, rheumatoid arthritis, anemia PSH- tubal ligation, right foot surgery, tonsillectomy, bilateral total knee replacement, right eye surgery, Allergy- , levofloxacin, ceftriaxone Personal History/ Social History- No history of smoking, alcohol and other drug abuse Patient was seen today for clinical evaluation. Labs and chart reviewed. Overnight patient's BP ranging from 99-142/53-70, pulse 64-92, temperature-97.2-98.9 I/O , intake 1336, output 2225, negative balance 889 Patient's eye opening but no communication, Patient on Ertapenem On 08/23/2024 urine culture negative Ordered for surgeon consult for tracheostomy tube in place -patient was seen surgery Dr. Drummond, recommendation reviewed and appreciated. Had a meeting with the family today. Family agreed for tracheostomy and PEG tube placement Consult for tracheostomy and PEG tube in place Patient's family still deciding about tracheostomy Patient has Vigil's catheter was changed on 0 08/25/[address] head on 08/24/2024-1. No acute intracranial hemorrhage. 2. No CT findings of territorial ischemia. ABG -pH 7.47, pCO2 41.0, PO2 101.2, bicarbonate 29.6 CXR no significant change WBC 7.1> 7.2> 14.1> 11.4> 9.3> 12.1>? 12.9 >12.9> 15.0> 13.9> 15.5> 16.1> 14.4> 18.2> 20.1> 21.3> 19.7 Hemoglobin 13.1> 11.9> 10.8> 11.0> 10.5> 11.9> 12.5> 13.4> 12.9> 12.7> 11.9> 9.5> 11.6> 11.5> 11.9> 11.3 platelet 276>> 302 264> 252> 229> 217> 228> 242> 295> 167> 221> 197> 148> 177> 177> 189> 179 Sodium 137> 142> 147> 146> 148> 148> 143> 148>> 143 >140> 139> 140> 137> 138> 139> 140> 136> 136> 138 Potassium> 3.9> 4.0> 3.7> 3.6> 3.7> 3.7> 3.5> 3.8> 3.5> 3.8> 3.9> 3.2> 3.2> 3.6> 3.7> 3.5> 4.1> 3.7 Serum creatinine 0.92> 0.87> 1.22> 1.21> 1.19> 0.98> 0.78> 0.81>0.88> 0.74> 0.65> 0.74> 0.84> 0.91> 0.78 BUN 18> 31> 26> 29> 26> 22> 24> 31> 23> 19> 19> 25> 23> 23> 35 Serum> bilirubin 0.5> 0.6>0.5> 0.5 0.8> 1.2> 0.9 > 1.0> 0.8> 0.7> .5 AST> 20 88> 50> 37> 43> 49> 61> 33> 28> 23 ALT 17> 91> 69> 56> 58> 70> 108> 80> 63> 53> 41>33 Blood culture no growth so far Respiratory Culture no growth Patient on antibiotic ertapenem Provider spoke to patient's daughter Ms. Nieves Levy,-[phone], discussed patient's current medical condition, plan of care, answered her questions Objective vital signs Vital Sign Date Time Temp Pulse Resp B/P (MAP) Pulse Ox O2 Delivery O2 Flow Rate FiO2 08/26/24 06:16 103/64 08/26/24 06:01 79 21 98 30 08/26/24 06:00 Mechanical Ventilator+ 08/26/24 04:00 97.6 97.6 Total Intake and Output 08/25/24 08/25/24 08/26/24 15:00 23:00 07:00 Intake Total 300 ml 1036 ml 0 ml Output Total 1375 ml 850 ml Balance 300 ml -339 ml -850 ml medications Current Medications Medications Dose Ordered Sig/Kristen Route Start Time Stop Time Status Last Admin Dose Admin Ondansetron HCl 4 mg Q4HP PRN IV 08/11/24 13:00 Docusate Sodium 100 mg BIDPRN PRN PO 08/11/24 13:00 Acetaminophen 650 mg Q6HP PRN PO 08/11/24 13:00 Albuterol 2.5 mg Q6HWA NEB 08/11/24 18:00 08/26/24 06:01 2.5 MG Ipratropium [place] 0.5 mg Q6HWA NEB 08/11/24 18:00 08/26/24 06:01 0.5 MG Latanoprost 1 drop QPM EACHEYE 08/11/24 18:00 08/25/24 17:58 1 DROP Patient Own Medication 1 drop BID EACHEYE 08/11/24 22:00 08/25/24 22:13 1 DROP Albuterol 2.5 mg Q2HPRN PRN NEB 08/11/24 20:45 08/20/24 10:09 2.5 MG Ipratropium [place] 0.5 mg Q2HPRN PRN NEB 08/11/24 20:45 08/20/24 10:09 0.5 MG Pantoprazole Sodium 40 mg DAILY IV 08/13/24 10:00 08/25/24 11:14 40 MG Sildenafil Citrate 20 mg TID@08,14,20 PO 08/14/24 14:00 08/25/24 20:48 20 MG Hydralazine HCl 10 mg Q6HP PRN IV 08/15/24 15:30 08/24/24 18:01 10 MG Labetalol HCl 20 mg Q2HPRN PRN IV 08/19/24 15:15 08/20/24 06:20 20 MG Amlodipine Besylate 10 mg DAILY PO 08/20/24 10:00 08/25/24 11:15 10 MG Clonidine HCl 0.1 mg BID PO 08/19/24 22:00 08/26/24 01:15 0.1 MG Sodium Chloride 10 ml QSHIFT@10,22 IV 08/20/24 22:00 08/25/24 22:11 10 ML Carvedilol 12.5 mg Q12HR PO 08/21/24 22:00 08/25/24 22:11 12.5 MG Furosemide 20 mg BIDD IV 08/23/24 06:00 08/26/24 06:16 20 MG Diagnostic Test (Pha) 1 strip ACHS 08/23/24 17:00 08/26/24 06:46 1 STRIP Insulin Human Regular ACHS SC 08/23/24 17:00 08/25/24 22:39 6 UNITS Dextrose 50 ml UD PRN IV 08/23/24 14:15 Bisacodyl 10 mg QHSP PRN [place] 08/24/24 14:15 Potassium Chloride 100 ml @ 50 mls/hr Q2H IV 08/24/24 22:00 08/25/24 01:59 UNV Ertapenem 1 gm/ Sodium Chloride 50 ml @ 100 mls/hr 1400 IV 08/25/24 14:00 08/25/24 15:34 100 MLS/HR Enteral Nutritional Formula 1,000 ml 35ML/HR GT 08/25/24 12:00 Amino Acid Protein 30 ml BID GT 08/25/24 22:00 08/25/24 22:12 30 ML Examination General examination- patient on mechanical ventilation, HEENT- PEERLA, no acute nasal discharge Cardiovascular- S1-S2 audible, rate and rhythm regular, no murmur Respiratory-CTAB Gastrointestinal-nontender, bowel sound+. Nondistended Musculoskeletal-swan neck deformity on bilateral hands+, edematous bilateral hands Lower extremity- No leg edema Skin- no acute rash or purpura laboratory and microbiology Laboratory Tests 08/26/24 04:30 Test 08/26/24 04:30 Range/Units Serum Glucose 124 H 74-106 mg/dL Microbiology Date/Time Source Procedure Growth Status 08/23/24 18:36 Voided Urine Urine Culture - Preliminary Resulted 08/13/24 04:40 Blood Blood Culture - Final NO GROWTH AFTER 5 DAYS OF INCUBATION. Complete 08/13/24 02:49 Sputum Gram Stain - Final Complete 08/13/24 02:49 Sputum Respiratory Culture - Final Complete Problem List/Assessment/Plan Problem List/Assessment/Plan Assessment and plan Neurology # metabolic encephalopathy/toxic encephalopathy/hypoxic encephalopathy -status post cardiac arrest, status post CPR -patient on mechanical ventilation, -Reported anisocoria with right-sided slightly weaker -CT head very mild cortical atrophy -MRI of the brain- No acute intracranial pathology -continue current management Cardiovascular -Acute diastolic heart failure -[place] set AF patient on DVT prophylaxis -paroxysmal Bradycardia -Echo 2D on 08/13/2024-LVEF 60%, concentric LVH with right ventricle and right atrial enlargement. -CAD -pulmonary hypertension -history of hypertension -hyperlipidemia -continue nebulization -continue Coreg 12.5 mg b.i.d.- hold if bradycardia Respiratory -acute hypoxic respiratory failure -acute exacerbation of COPD -pulmonary hypertension -failed CPAP trial on 08/18/2024 -Blood culture no growth so far -Urine culture [place] 28289 colony-forming units per mL yeast -Respiratory Culture preliminary no growth -continue nebulization -sildenafil 20 mg t.i.d. Gastrointestinal -transaminitis -monitor CMP Genitourinary/renal -suspected UTI -HECTOR likely due to VMN -right kidney cyst in the lower pole -avoid dehydration and nephrotoxic drugs Infectious disease -Septic shock- Improved -acute pneumonia Gram-positive versus Gram-negative -continue ertapenem as prescribed Hemato oncology -anemia of chronic disease -monitor CBC Endocrinology/ metabolic disorder -obesity Musculoskeletal -rheumatoid arthritis -gout -continue current management Skin or elementary -wound care consult in place PICC line ETT Vigil's catheter Goals of care/advance care planning Code status ; discussed with >25 minutes PUD prophylaxis: Pantoprazole DVT prophylaxis: Lovenox Plan discussed with Dr. Hernandez, nursing staff, daughter Total time spent on patient evaluation, chart review, assessment and plan, total critical time spent including monitoring mechanical ventilation excluding procedure 53 minutes Plan discussed with: Daughter, Son, Other (RN) My Orders My Orders Orders - CALI WITT RESIDENT Procedure Category Date Status Time * Dietary Consult CONS 08/25/24 Transmitted 09:10 Mrsa Screen MADELINE 08/25/24 Logged 13:30 Nutritional PHA 08/25/24 In Process Supplements (Glucerna 12:00 Amino Acids-Protein PHA 08/25/24 In Process Hydrolysat (Pro-Stat 22:00 Chest Portable XY 08/25/24 Resulted 13:07 * Surgical Consult CONS 08/25/24 Transmitted Mrsa Screen MADELINE 08/25/24 In Process 13:42 Chest Portable XY 08/26/24 Resulted 04:00 Abg W/ Co-Ox RT 08/26/24 Logged 05:00 Magnesium LAB 08/26/24 Logged 06:52 Dietary Evaluation Review Recommendations by RD: Protein Supplementation Comments: 1) Increase TF rate from 30 mL/hr to 35 mL/hr. Initiate Pro-Stat @ 30 mL bid. Goal rate (including Pro-Stat) will provide 1208 kcals, 77g Pro, and 1178 mL free H2O (including flushes) per 24 hrs. Goal rate will meet ~ 100% estimated daily energy needs and ~94% estimated daily protein needs 2) Initiate vitamin C @ 500 mg and zinc sulfate @ 220 mg qd for 7 days 3) Advance to cardiac diet when medically feasible, pending INDUSTRIAL WASTE INSPECTOR approval 4) F/u with cardiology and pulmonology 5) Continue to monitor I&O, labs, and skin integrity Expected Outcomes/Goals: 1) appetite and labs to improve 2) diet to advance 3) f/u in 2-3 Interpretation of weight loss: up to 20% in 1 year Date of Service: Aug 26, 2024 Billing Provider: ROSHAN HERNANDEZ MD Common Visit Codes: [id number] CARE 30-74 MIN CALI WITT RESIDENT Aug 26, 2024 07:02 ROSHAN HERNANDEZ MD Sep 06, 2024 20:12
--- NOTE | 2024-08-26 08:26 | DVHPN2 ---
Progress Note Date Seen: Aug 26, 2024 Medical Necessity Reason Pt with a Central, PICC or Fol: Yes The following are medically ne: Central Line, Vigil Catheter Reason for vigil catheter: Strict I&O Objective vital signs Vital Sign Date Time Temp Pulse Resp B/P (MAP) Pulse Ox O2 Delivery O2 Flow Rate FiO2 08/26/24 08:02 91 18 111/59 (76) 99 30 08/26/24 08:00 97.7 97.7 08/26/24 06:00 Mechanical Ventilator+ Total Intake and Output 08/25/24 08/25/24 08/26/24 15:00 23:00 07:00 Intake Total 300 ml 1036 ml 0 ml Output Total 1375 ml 850 ml Balance 300 ml -339 ml -850 ml medications Current Medications Medications Dose Ordered Sig/Kristen Route Start Time Stop Time Status Last Admin Dose Admin Ondansetron HCl 4 mg Q4HP PRN IV 08/11/24 13:00 Docusate Sodium 100 mg BIDPRN PRN PO 08/11/24 13:00 Acetaminophen 650 mg Q6HP PRN PO 08/11/24 13:00 Albuterol 2.5 mg Q6HWA NEB 08/11/24 18:00 08/26/24 06:01 2.5 MG Ipratropium [place] 0.5 mg Q6HWA NEB 08/11/24 18:00 08/26/24 06:01 0.5 MG Latanoprost 1 drop QPM EACHEYE 08/11/24 18:00 08/25/24 17:58 1 DROP Patient Own Medication 1 drop BID EACHEYE 08/11/24 22:00 08/25/24 22:13 1 DROP Albuterol 2.5 mg Q2HPRN PRN NEB 08/11/24 20:45 08/20/24 10:09 2.5 MG Ipratropium [place] 0.5 mg Q2HPRN PRN NEB 08/11/24 20:45 08/20/24 10:09 0.5 MG Pantoprazole Sodium 40 mg DAILY IV 08/13/24 10:00 08/25/24 11:14 40 MG Sildenafil Citrate 20 mg TID@08,14,20 PO 08/14/24 14:00 08/25/24 20:48 20 MG Hydralazine HCl 10 mg Q6HP PRN IV 08/15/24 15:30 08/24/24 18:01 10 MG Labetalol HCl 20 mg Q2HPRN PRN IV 08/19/24 15:15 08/20/24 06:20 20 MG Amlodipine Besylate 10 mg DAILY PO 08/20/24 10:00 08/25/24 11:15 10 MG Clonidine HCl 0.1 mg BID PO 08/19/24 22:00 08/26/24 01:15 0.1 MG Sodium Chloride 10 ml QSHIFT@10,22 IV 08/20/24 22:00 08/25/24 22:11 10 ML Carvedilol 12.5 mg Q12HR PO 08/21/24 22:00 08/25/24 22:11 12.5 MG Furosemide 20 mg BIDD IV 08/23/24 06:00 08/26/24 06:16 20 MG Diagnostic Test (Pha) 1 strip ACHS 08/23/24 17:00 08/26/24 06:46 1 STRIP Insulin Human Regular ACHS SC 08/23/24 17:00 08/25/24 22:39 6 UNITS Dextrose 50 ml UD PRN IV 08/23/24 14:15 Bisacodyl 10 mg QHSP PRN [place] 08/24/24 14:15 Potassium Chloride 100 ml @ 50 mls/hr Q2H IV 08/24/24 22:00 08/25/24 01:59 UNV Ertapenem 1 gm/ Sodium Chloride 50 ml @ 100 mls/hr 1400 IV 08/25/24 14:00 08/25/24 15:34 100 MLS/HR Enteral Nutritional Formula 1,000 ml 35ML/HR GT 08/25/24 12:00 Amino Acid Protein 30 ml BID GT 08/25/24 22:00 08/25/24 22:12 30 ML laboratory and microbiology Laboratory Tests 08/26/24 04:30 Test 08/26/24 04:30 Range/Units Serum Glucose 124 H 74-106 mg/dL Microbiology Date/Time Source Procedure Growth Status 08/23/24 18:36 Voided Urine Urine Culture - Preliminary Resulted 08/13/24 04:40 Blood Blood Culture - Final NO GROWTH AFTER 5 DAYS OF INCUBATION. Complete 08/13/24 02:49 Sputum Gram Stain - Final Complete 08/13/24 02:49 Sputum Respiratory Culture - Final Complete Problem List/Assessment/Plan Problem List/Assessment/Plan INTUBATED AFEBRILE VSS ABD SOFT FAMILY TO DECIDE FOR ELECTIVE TRACHEOSTOMY Plan discussed with: Other Dietary Evaluation Review Recommendations by RD: Protein Supplementation Comments: 1) Increase TF rate from 30 mL/hr to 35 mL/hr. Initiate Pro-Stat @ 30 mL bid. Goal rate (including Pro-Stat) will provide 1208 kcals, 77g Pro, and 1178 mL free H2O (including flushes) per 24 hrs. Goal rate will meet ~ 100% estimated daily energy needs and ~94% estimated daily protein needs 2) Initiate vitamin C @ 500 mg and zinc sulfate @ 220 mg qd for 7 days 3) Advance to cardiac diet when medically feasible, pending STORAGE ADMINISTRATOR approval 4) F/u with cardiology and pulmonology 5) Continue to monitor I&O, labs, and skin integrity Expected Outcomes/Goals: 1) appetite and labs to improve 2) diet to advance 3) f/u in 2-3 Interpretation of weight loss: up to 20% in 1 year SHELBY OLMOS MD Aug 26, 2024 08:26
--- NOTE | 2024-08-26 14:19 | DVHPN2 ---
Progress Note - Dictate Date Seen: Aug 26, 2024 Medical Necessity Reason Pt with a Central, PICC or Fol: Yes The following are medically ne: Central Line, Vigil Catheter Reason for vigil catheter: Strict I&O Subjective Ms. Recinos is a 73 years old female with a history of hypertension, dyslipidemia, coronary artery disease, heart attack, congestive heart failure, asthma, COPD on home oxygen, gout, anemia, the patient was admitted found her alf on 08/11/2024 with a chief company of shortness of breath I have seen and examined the patient, I have talked to her nurse. She is awake, she tracks twice during my physical examination, but she does not move the extremities, or follows verbal commands Later, she tracks her son Pupils are equal ABG, 08/12/2024: Respiratory acidosis, hypoxia WBC/HB/PLT/MCV, 08/12/2024: 7.2/11.9/302/85.7, 08/19/2024: 13.9/12.9/167/86.5 CMP, 08/12/2024: Unremarkable HGB A1c, 04/11/2024: 500 TBI/AST/ALT/AP, 08/19/2024: 0.19/61/108/86 TG/HDL/LDL/HDL, 05/2023: 101/2026/186/45 Vitamin B12, 03/2024: 1161 TSH, 03/2024: 1.39 EEG 08/13/2024: Remarkably abnormal Extremity venous study, 08/13/2024: No evidence of right or left femoropopliteal venous thrombosis. Chest x-ray, 08/12/2024: Left central venous catheter overlies the left upper chest and may be not position. Clinical correlation advised. Endotracheal tube in satisfactory position. Left central venous catheter in uncertain position Chest x-ray, 08/15/24: Hazy bilateral opacities are unchanged CXR, 08/26/2024: Pulmonary venous congestion CT head, 08/12/2024: Very mild cortical atrophy otherwise unremarkable study CT head, 08/17/2024: No acute intracranial abnormality CT head, 08/24/2024: 1. No acute intracranial hemorrhage. 2. No CT findings of territorial ischemia CTA chest, 08/13/2024: Grossly enlarged pulmonary arteries underlying pulmonary arterial hypertension is suspected no pulmonary embolus There are bilateral infiltrates in the lung bases MRI brain, 07/17/24: No acute intracranial pathology vital signs Vital Sign Date Time Temp Pulse Resp B/P (MAP) Pulse Ox O2 Delivery O2 Flow Rate FiO2 08/26/24 12:00 82 08/26/24 12:00 30 08/26/24 12:00 18 100 Mechanical Ventilator+ 08/26/24 12:00 97.7 114/60 (78) 97.7 Total Intake and Output 08/25/24 08/25/24 08/26/24 15:00 23:00 07:00 Intake Total 300 ml 1036 ml 0 ml Output Total 1375 ml 850 ml Balance 300 ml -339 ml -850 ml medications Current Medications Medications Dose Ordered Sig/Kristen Route Start Time Stop Time Status Last Admin Dose Admin Ondansetron HCl 4 mg Q4HP PRN IV 08/11/24 13:00 Docusate Sodium 100 mg BIDPRN PRN PO 08/11/24 13:00 Acetaminophen 650 mg Q6HP PRN PO 08/11/24 13:00 Albuterol 2.5 mg Q6HWA NEB 08/11/24 18:00 08/26/24 11:58 2.5 MG Ipratropium [place] 0.5 mg Q6HWA NEB 08/11/24 18:00 08/26/24 11:58 0.5 MG Latanoprost 1 drop QPM EACHEYE 08/11/24 18:00 08/25/24 17:58 1 DROP Patient Own Medication 1 drop BID EACHEYE 08/11/24 22:00 08/26/24 11:09 1 DROP Albuterol 2.5 mg Q2HPRN PRN NEB 08/11/24 20:45 08/20/24 10:09 2.5 MG Ipratropium [place] 0.5 mg Q2HPRN PRN NEB 08/11/24 20:45 08/20/24 10:09 0.5 MG Pantoprazole Sodium 40 mg DAILY IV 08/13/24 10:00 08/26/24 11:10 40 MG Sildenafil Citrate 20 mg TID@08,14,20 PO 08/14/24 14:00 08/26/24 09:00 20 MG Hydralazine HCl 10 mg Q6HP PRN IV 08/15/24 15:30 08/24/24 18:01 10 MG Labetalol HCl 20 mg Q2HPRN PRN IV 08/19/24 15:15 08/20/24 06:20 20 MG Amlodipine Besylate 10 mg DAILY PO 08/20/24 10:00 08/25/24 11:15 10 MG Clonidine HCl 0.1 mg BID PO 08/19/24 22:00 08/26/24 11:11 0.1 MG Sodium Chloride 10 ml QSHIFT@10,22 IV 08/20/24 22:00 08/26/24 11:10 10 ML Carvedilol 12.5 mg Q12HR PO 08/21/24 22:00 08/26/24 11:11 12.5 MG Furosemide 20 mg BIDD IV 08/23/24 06:00 08/26/24 06:16 20 MG Diagnostic Test (Pha) 1 strip ACHS 08/23/24 17:00 08/26/24 11:13 1 STRIP Insulin Human Regular ACHS SC 08/23/24 17:00 08/26/24 11:13 3 UNITS Dextrose 50 ml UD PRN IV 08/23/24 14:15 Bisacodyl 10 mg QHSP PRN [place] 08/24/24 14:15 Potassium Chloride 100 ml @ 50 mls/hr Q2H IV 08/24/24 22:00 08/25/24 01:59 UNV Ertapenem 1 gm/ Sodium Chloride 50 ml @ 100 mls/hr 1400 IV 08/25/24 14:00 08/25/24 15:34 100 MLS/HR Enteral Nutritional Formula 1,000 ml 35ML/HR GT 08/25/24 12:00 Amino Acid Protein 30 ml BID GT 08/25/24 22:00 08/26/24 11:09 30 ML objective The patient is well-nourished and well-developed with no distress. MENTAL STATUS: Subjective, CRANIAL NERVES: pupils are equal round and reactive to light briskly, normal external eye movement, normal sensation and motor examination in the lateral trigeminal nerve distribution, no facial weakness SENSATION: Responses to pain stimuli. MOTOR: Normal tone in the upper and lower extremity. Normal muscle bulk. No fasciculations. No spontaneous extremity movement REFLEXES: Deep tendon reflexes are symmetrical. No pathological reflexes. CEREBELLAR/COORDINATION: Deferred GAIT/STATION: deferred. laboratory and microbiology Laboratory Tests 08/26/24 04:30 Test 08/26/24 04:30 Range/Units Serum Glucose 124 H 74-106 mg/dL Problem List Coma, resolved Hypoxic encephalopathy Metabolic encephalopathy Toxic encephalopathy Cardiopulmonary arrest Respiratory failure Hypoxia Status post CPR Sepsis Pneumonia Acidosis Seizure-like activity to rule out seizure attack Reported anisocoria with right-sided slightly weaker on 08/14/2024, evident physical examination on 08/19/2024 Assessment/Plan Monitoring Supportive treatment ICU care Follow-up labs Respiratory support Stabilize vitals Antibiotics Oxygen DVT prophylaxis GI prophylaxis Up to chair Physical therapy More recommendation per clinical course This medical document was created using an electronic medical record system with [employer] dictation system. Although this document has been carefully reviewed, there may still be some phonetic and typographical errors. These areas are purely typographical due to imperfections of the software programs, and do not reflect any compromise in the patient's medical care. Prognosis guarded Dietary Evaluation Review Recommendations by RD: Protein Supplementation Comments: 1) Increase TF rate from 30 mL/hr to 35 mL/hr. Initiate Pro-Stat @ 30 mL bid. Goal rate (including Pro-Stat) will provide 1208 kcals, 77g Pro, and 1178 mL free H2O (including flushes) per 24 hrs. Goal rate will meet ~ 100% estimated daily energy needs and ~94% estimated daily protein needs 2) Initiate vitamin C @ 500 mg and zinc sulfate @ 220 mg qd for 7 days 3) Advance to cardiac diet when medically feasible, pending MANAGER INTERNSHIP approval 4) F/u with cardiology and pulmonology 5) Continue to monitor I&O, labs, and skin integrity Expected Outcomes/Goals: 1) appetite and labs to improve 2) diet to advance 3) f/u in 2-3 Interpretation of weight loss: up to 20% in 1 year Plan discussed with: Raul, Other PATRIZIA SHERWOOD MD Aug 26, 2024 14:19
[2024-08-26] MEDS: predniSONE 5 MG TAB NG ONE (18:22)
--- NOTE | 2024-08-26 19:12 | DVHINCON2 ---
Date of service: Aug 26, [address] Del Rio Reason for Consultation Possible PEG tube placement History of Present Illness 73 y.o.female currently with prolonged ventilator dependence. She has history of asthma, COPD, home oxygen, hypertension, rheumatoid arthritis She was admitted with hypoxic respiratory failure and pneumonia requiring intubation. Chest x-ray showed opacities. Pt is scheduled for a tentative tracheostomy tomorrow Gi is being consulted for possible PEG tube placement Past Medical History Cardiovascular: CAD, CHF, HTN, [place], hyperipidemia Pulmonary: Asthma, COPD Rheumatologic: Rheumatoid arthritis Past Surgical History Past Surgical History: Other (right foot), Total knee replacement (Bilateral), Tubal Ligation, Tonsillectomy Family History: Alcoholism G8 SISTER, , Cause: Natural of unknown etiology, Not a twin Cardiovascular disease G8 MOTHER, , Cause: Natural of unknown etiology, Not a twin G8 BROTHER, , Cause: Natural of unknown etiology, Not a twin Glaucoma G8 FATHER Ischemic heart disease G8 MOTHER, , Cause: Natural of unknown etiology, Not a twin Allergies: Coded Allergies: Ceftriaxone (Verified Allergy, Intermediate, 12/31/23) RASH COUGH Levofloxacin (Verified Allergy, Unknown, 12/31/23) Home Meds Active Scripts Hydralazine Hcl (Hydralazine Hcl) 10 Mg Tab, 10 MG PO DAILY PRN for 20 Days, #20 TAB Prov:GIOVANY RIBERA RESIDENT 04/12/24 Reported Medications Latanoprost (LATANOPROST) 0.005 % Viktoriya, 1 DROP EACHEYE QPM for GLAUCOMA, #7.5 ML 3 Refills 12/31/23 Dorzolamide-Timolol (Dorzolamide Hcl/Timolol M) 1 Ml Viktoriya, 1 DROP EACHEYE BID, #10 ML 6 Refills 12/31/23 Fjwntzincfg-Rhbsmzinnlyc-Rwwss (Trelegy Ellipta 200-62.5-25 Mcg/INH) 1 Aer Aer, 1 AER IN DAILY for COPD, AER 12/31/23 Sildenafil Citrate (SILDENAFIL CITRATE) 20 Mg Tab, 20 MG PO TID for PUL. HTN, TAB 12/31/23 Furosemide (Furosemide) 40 Mg Tab, 1 TAB PO DAILY 07/31/22 Carvedilol (Carvedilol) 25 Mg Tab, 1 TAB PO BID 07/31/22 Ferrous Sulfate (Ferosul) 325 Mg Tab, 1 TAB PO BID 07/31/22 Current Medications Current Medications Medications (Trade) Dose Ordered Sig/Kristen Route PRN Reason Start Time Stop Time Status Last Admin Micafungin Sodium 100 mg/Sodium Chloride 100 ml @ 100 mls/hr 0000 IV 08/26/24 00:00 08/25/24 15:28 DC Amino Acid Protein (Pro-Stat Sugar Free) 30 ml BID GT 08/25/24 22:00 08/26/24 11:09 Prednisone 10 mg DAILY NG 08/27/24 10:00 Amlodipine Besylate (Norvasc Tablet) 10 mg DAILY@1700 PO 08/27/24 17:00 Vital Signs Vital Signs Date Time Temp Pulse Resp B/P (MAP) Pulse Ox O2 Delivery O2 Flow Rate FiO2 08/26/24 18:25 113/50 08/26/24 18:00 89 08/26/24 18:00 30 08/26/24 18:00 18 98 Mechanical Ventilator+ 08/26/24 16:00 98.9 98.9 Physical Exam VITAL SIGNS: Afebrile, stable signs. Intubated.sedated CHEST AND LUNGS: b/l coarse breath sounds HEART: Within normal limits.S1S2 rrr ABDOMEN: Soft.NT ND Ext no c/c/e Labs/Diagnostic Data Labs Test 08/26/24 17:07 08/26/24 06:46 08/26/24 04:30 08/25/24 08:17 Range/Units POC Glucose 175 H 70-106 mg/dl Blood Gas Specimen Type Arterial Blood Gas Sample Site Right radial Blood Gas Patient Temperature 37.0 Arterial Blood Date Drawn [id number] Arterial Blood pH 7.476 H 7.350-7.450 Arterial Blood Partial Pressure CO2 41.0 32.0-45.0 mmHg Arterial Blood Partial Pressure O2 101.2 83.0-108.0 mmHg Arterial Blood HCO3 29.6 H 21.0-28.0 mmol/L Arterial Blood Oxygen Saturation 97.5 94.0-98.0 % Arterial Blood Base Excess 5.5 H -2.0-3.0 mmol/L Arterial Blood Oxyhemoglobin 96.4 94.0-98.0 % Arterial Blood Carboxyhemoglobin 0.5 0.5-1.5 % Arterial Blood Methemoglobin 0.6 0.0-1.5 % Harpreet Test Modified Blood Gas Total Hemoglobin 12.80 12.0-16.0 g/dL Blood Gas Set Respiration Rate 18.0 Blood Gas Modality Vent - ac FiO2 % 30.0 Blood Gas Tidal Volume 400.0 Blood Gas PEEP or CPAP 5.0 White Blood Count 19.7 H 4.4-10.8 10^3/uL Red Blood Count 4.12 4.0-5.20 10^6/uL Hemoglobin 11.3 L 12.2-16.2 g/dL Hematocrit 34.7 L 36.0-46.0 % Mean Corpuscular Volume 84.3 80.0-100.0 fL Mean Corpuscular Hemoglobin 27.6 L 28.0-32.0 pg Mean Corpuscular Hemoglobin Concent 32.7 32.0-36.0 g/dL Red Cell Distribution Width 15.3 H 11.8-14.3 % Platelet Count 179 140-450 10^3/uL Mean Platelet Volume 10.4 6.9-10.8 fL Neutrophils (%) (Auto) 88.0 H 37.0-80.0 % Lymphocytes (%) (Auto) 5.2 L 10.0-50.0 % Monocytes (%) (Auto) 6.5 0.0-12.0 % Eosinophils (%) (Auto) 0.1 0.0-7.0 % Basophils (%) (Auto) 0.2 0.0-2.0 % Neutrophils # (Auto) 17.3 H 1.6-8.6 10 ^3/uL Lymphocytes # (Auto) 1.0 0.4-5.4 10 ^3/uL Monocytes # (Auto) 1.3 0-1.3 10 ^3/uL Eosinophils # (Auto) 0 0-0.8 10 ^3/uL Basophils # (Auto) 0 0-0.2 10 ^3/uL Nucleated Red Blood Cells 0.0 % Sodium Level 138 136-145 mmol/L Potassium Level 3.7 3.5-5.1 mmol/L Chloride Level 100 98-107 mmol/L Carbon Dioxide Level 35 H 20-31 mmol/L Anion Gap 3 L 5-15 Blood Urea Nitrogen 26 H 9-23 mg/dL Creatinine 0.78 0.550-1.02 mg/dL Glomerular Filtration Rate Calc 81 >90 mL/min BUN/Creatinine Ratio 33.3 H 10.0-20.0 Serum Glucose 124 H 74-106 mg/dL Calcium Level 9.7 8.7-10.4 mg/dL Magnesium Level 2.2 1.6-2.6 mg/dL Total Bilirubin 0.5 0.2-1.0 mg/dL Aspartate Amino Transferase (AST) 23 13-40 U/L Alanine Aminotransferase (ALT) 33 7-40 U/L Alkaline Phosphatase 81 46-116 U/L Total Protein 5.8 5.7-8.2 g/dL Albumin 3.7 3.2-4.8 g/dL Differential Total Cells Counted 100.0 100 Neutrophils % (Manual) 93 H 37.0-80.0 Band Neutrophils % (Manual) 0 Lymphocytes % (Manual) 4 L 10.0-50.0 Monocytes % (Manual) 3 0-12 Eosinophils % (Manual) 0 0-7 Basophils % (Manual) 0 0.0-2.0 Metamyelocytes % (manual) 0 Myelocytes % (Manual) 0 Promyelocytes % (Manual) 0 Blast Cells % (Manual) 0 Reactive Lymphocytes 0 Platelet Estimate Adequate Prothrombin Time 11.3 9.3-11.8 sec Prothrombin Time INR 1.07 0.9-1.15 Activated Partial Thromboplast Time 23.7 L 24.5-34.5 SEC Test 08/24/24 05:14 08/23/24 18:36 08/23/24 05:35 08/22/24 16:04 Range/Units B-Type Natriuretic Peptide 301.08 0-100 pg/mL Random Vancomycin Level 18.1 H 5-10 ug/mL Urine Color Colorless Yellow Urine Clarity Turbid H Clear Urine pH 6.5 5.0-9.0 Urine Specific [place] 1.006 1.001-1.035 Urine Protein Negative Negative Urine Ketones Negative Negative Urine Blood 2+ H Negative /uL Urine Nitrite Negative Negative Urine Bilirubin Negative Negative Urine Urobilinogen Normal Negative mg/dL Urine Leukocyte Esterase 3+ Negative /uL Urine RBC 110 0 - 4 /hpf Urine WBC Clumps Present None Seen /hpf Urine Microscopic WBC 80 H 0-5 /HPF Urine Squamous Epithelial Cells None seen <5 /hpf Urine Bacteria Few H None Seen /hpf Urine Mucus Few None Seen Urine Yeast (Budding) Few None Seen /hpf Urine Glucose 2+ H Normal mg/dL Creatine Kinase 22 L 34-145 U/L Vancomycin Level Trough 25.4 H 5-10 ug/mL Test 08/16/24 06:32 08/14/24 04:30 08/12/24 21:25 08/12/24 15:55 Range/Units Blood Gas Comments Urine Uric Acid Crystals Many None Seen /hpf Urine Hyaline Casts Few 0 - 2 /lpf Blood Gas Spontaneous Rate 20 Blood Gas Spontaneous Tidal Volume 400 Bl Gas Inspiratory/Expiratory Ratio 1:2.4 Specimen Drawn By Rocael damon rt D-Dimer, Quantitative 22.61 H 0.0-0.49 mg/L FEU Test 08/12/24 15:28 08/12/24 12:20 08/11/24 11:40 Range/Units Blood Gas Inspiratory Pressure 33.0 Blood Gas Liter Flow 15.00 Blood Gas Critical Value Read Back Yes Blood Gas Notified Whom Blood Gas Notified Time [id number] Blood Gas Notified By Bdownard inspector canvas products Troponin I High Sensitivity 23 </=34 ng/L Microbiology Date/Time Source Procedure Growth Status 08/25/24 13:42 Nose MRSA Screen - Final Complete 08/23/24 18:36 Voided Urine Urine Culture - Preliminary Presumptive Nell albicans Resulted 08/13/24 04:40 Blood Blood Culture - Final NO GROWTH AFTER 5 DAYS OF INCUBATION. Complete 08/13/24 02:49 Sputum Gram Stain - Final Complete 08/13/24 02:49 Sputum Respiratory Culture - Final Complete CXR IMPRESSION: Pulmonary venous congestion. Problems(with codes): (1) Ventilator dependence (2) Pneumonia (3) CHF exacerbation (4) COPD exacerbation (5) Acute respiratory failure (6) Pulmonary vascular congestion Plan/Recommendation Plan Patient is scheduled for a tentative tracheostomy in the next couple of days After that I will follow up with the patient and arrange a PEG tube placement later this week Discussed with the family at bedside risks and ulcer were explained Further recommendations as per clinical course Plan discussed with: Other (Dr Del Rio and family at bedside) HANSA OLMOS MD Aug 26, 2024 19:12
--- NOTE | 2024-08-26 21:40 | DVHPN2 ---
Progress Note - Dictate Date Seen: Aug 26, 2024 Medical Necessity Reason Pt with a Central, PICC or Fol: Yes The following are medically ne: Central Line, Vigil Catheter Reason for vigil catheter: Strict I&O Subjective Patient was seen and evaluated in follow up in the ICU. Patient is intubated and sedated on ventilator. 30% FiO2. Patient opens eyes and tracks but does not follow commands. Patient is deciding for elective tracheostomy. WBC 19.7, CO2 35, BUN 26. Chest x-ray shows pulmonary venous congestion. MRSA is negative. vital signs Vital Sign Date Time Temp Pulse Resp B/P (MAP) Pulse Ox O2 Delivery O2 Flow Rate FiO2 08/26/24 20:00 97.4 86 18 112/68 (83) 97 97.4 08/26/24 18:00 30 08/26/24 18:00 Mechanical Ventilator+ Total Intake and Output 08/25/24 08/25/24 08/26/24 15:00 23:00 07:00 Intake Total 300 ml 1036 ml 0 ml Output Total 1375 ml 850 ml Balance 300 ml -339 ml -850 ml medications Current Medications Medications Dose Ordered Sig/Kristen Route Start Time Stop Time Status Last Admin Dose Admin Ondansetron HCl 4 mg Q4HP PRN IV 08/11/24 13:00 Docusate Sodium 100 mg BIDPRN PRN PO 08/11/24 13:00 Acetaminophen 650 mg Q6HP PRN PO 08/11/24 13:00 Albuterol 2.5 mg Q6HWA NEB 08/11/24 18:00 08/26/24 18:00 2.5 MG Ipratropium [place] 0.5 mg Q6HWA NEB 08/11/24 18:00 08/26/24 18:00 0.5 MG Albuterol 2.5 mg Q2HPRN PRN NEB 08/11/24 20:45 08/20/24 10:09 2.5 MG Ipratropium [place] 0.5 mg Q2HPRN PRN NEB 08/11/24 20:45 08/20/24 10:09 0.5 MG Pantoprazole Sodium 40 mg DAILY IV 08/13/24 10:00 08/26/24 11:10 40 MG Sildenafil Citrate 20 mg TID@08,14,20 PO 08/14/24 14:00 08/26/24 20:43 20 MG Hydralazine HCl 10 mg Q6HP PRN IV 08/15/24 15:30 08/24/24 18:01 10 MG Labetalol HCl 20 mg Q2HPRN PRN IV 08/19/24 15:15 08/20/24 06:20 20 MG Clonidine HCl 0.1 mg BID PO 08/19/24 22:00 08/26/24 11:11 0.1 MG Sodium Chloride 10 ml QSHIFT@10,22 IV 08/20/24 22:00 08/26/24 11:10 10 ML Carvedilol 12.5 mg Q12HR PO 08/21/24 22:00 08/26/24 11:11 12.5 MG Furosemide 20 mg BIDD IV 08/23/24 06:00 08/26/24 18:25 20 MG Diagnostic Test (Pha) 1 strip ACHS 08/23/24 17:00 08/26/24 18:22 1 STRIP Insulin Human Regular ACHS SC 08/23/24 17:00 08/26/24 18:23 3 UNITS Dextrose 50 ml UD PRN IV 08/23/24 14:15 Bisacodyl 10 mg QHSP PRN WA 08/24/24 14:15 Potassium Chloride 100 ml @ 50 mls/hr Q2H IV 08/24/24 22:00 08/25/24 01:59 UNV Ertapenem 1 gm/ Sodium Chloride 50 ml @ 100 mls/hr 1400 IV 08/25/24 14:00 08/26/24 16:26 100 MLS/HR Enteral Nutritional Formula 1,000 ml 35ML/HR GT 08/25/24 12:00 Amino Acid Protein 30 ml BID GT 08/25/24 22:00 08/26/24 11:09 30 ML Prednisone 10 mg DAILY NG 08/27/24 10:00 Amlodipine Besylate 10 mg DAILY@1700 PO 08/27/24 17:00 objective GENERAL: Intubated on ventilator. LUNGS: Decreased breath sounds. CARDIOVASCULAR: Heart sounds are good. ABDOMEN: Soft. laboratory and microbiology Laboratory Tests 08/26/24 04:30 Test 08/26/24 04:30 Range/Units Serum Glucose 124 H 74-106 mg/dL Problem List Metabolic encephalopathy/toxic encephalopathy/hypoxic encephalopathy. Status post cardiac arrest. Acute diastolic heart failure. New onset AFib. Paroxysmal Bradycardia . Acute hypoxic respiratory failure. Acute exacerbation of COPD. Pulmonary hypertension. Transaminitis. HECTOR. Pneumonia. Anemia of chronic disease. Obesity. Rheumatoid arthritis. Gout. Hypertension. Hyperlipidemia. Assessment/Plan Continued all current supportive medical care. Amlodipine, Coreg, Clonidine. IV antibiotics as ordered. Diuretics with Lasix. IV Labetalol for SBP >150 IV Hydralazine for SBP > 150. GI prophylactics. Additional plan as per the hospital course. Critical care time of 45 minutes provided to include time spent evaluation of patient at bedside, when appropriate patient/family education for diagnosis, treatment plan, review of pertinent medical information and discussion of care with specialty providers and PCP. Mechanical ventilator parameters, treatment and adjustments have personally been reviewed by me and treatment plan by seo coordinator has also been reviewed. Dietary Evaluation Review Recommendations by RD: Protein Supplementation Comments: 1) Increase TF rate from 30 mL/hr to 35 mL/hr. Initiate Pro-Stat @ 30 mL bid. Goal rate (including Pro-Stat) will provide 1208 kcals, 77g Pro, and 1178 mL free H2O (including flushes) per 24 hrs. Goal rate will meet ~ 100% estimated daily energy needs and ~94% estimated daily protein needs 2) Initiate vitamin C @ 500 mg and zinc sulfate @ 220 mg qd for 7 days 3) Advance to cardiac diet when medically feasible, pending NOVELTY PRINTING MACHINE OPERATOR approval 4) F/u with cardiology and pulmonology 5) Continue to monitor I&O, labs, and skin integrity Expected Outcomes/Goals: 1) appetite and labs to improve 2) diet to advance 3) f/u in 2-3 Interpretation of weight loss: up to 20% in 1 year Plan discussed with: ASHLEY Waggoner MD Aug 26, 2024 21:40
[2024-08-27] VITALS (64 sets, daily range): BP systolic 61–142; BP diastolic 34–94; PULSE 67–99; RESP 14–34; TEMP 97.4–99.4; O2SAT 95–100
[2024-08-27 05:10] LABS: Basophils # (auto) 0 10 ^3/uL (0-0.2); Basophils % (auto) 0.2 % (0.0-2.0); Eosinophils # (auto) 0 10 ^3/uL (0-0.8); Eosinophils % (auto) 0.2 % (0.0-7.0); Hematocrit 35.4 % (36.0-46.0); Hemoglobin 11.7 g/dL (12.2-16.2); Lymphocytes # (auto) 0.7 10 ^3/uL (0.4-5.4); Lymphocytes % (auto) 4.7 % (10.0-50.0); Mean Corpuscular Hemoglobin 27.8 pg (28.0-32.0); Mean Corpuscular Hgb Conc. 32.9 g/dL (32.0-36.0); Mean Corpuscular Volume 84.3 fL (80.0-100.0); Monocytes % (auto) 6.2 % (0.0-12.0); Neutrophils # (auto) 13.5 10 ^3/uL (1.6-8.6); Neutrophils % (auto) 88.7 % (37.0-80.0); Platelet Count (auto) 149 10^3/uL (140-450); Red Cell Distribution Width 15.3 % (11.8-14.3); White Blood Cell 15.2 10^3/uL (4.4-10.8)
--- NOTE | 2024-08-27 05:15 | DVH ---
EXAM: XR Chest, 1 View CLINICAL INDICATION: PNA TECHNIQUE: Frontal view of the chest. COMPARISON: XY CHEST PORTABLE on DOS: 08/26/24, XY CHEST PORTABLE on DOS: 08/25/24, XY CHEST PORTABLE on DOS: 08/24/24, XY CHEST PORTABLE on DOS: 08/23/24, XY CHEST PORTABLE on DOS: 08/22/24 FINDINGS: LUNGS AND PLEURAL SPACES: See below. HEART: Cardiomegaly with mild congestion. MEDIASTINUM: Unremarkable. Normal mediastinal contour. BONES/JOINTS: Unremarkable. No acute fracture. TUBES, LINES AND DEVICES: Stable tubes and lines. OTHER FINDINGS: . .. IMPRESSION: Cardiomegaly with mild congestion.
[2024-08-27 05:24] LABS: INR 1.05 (0.9-1.15); Prothrombin Time 11.1 sec (9.3-11.8)
[2024-08-27 05:30] LABS: Alanine Aminotransferase 33 U/L (7-40); Alkaline Phosphatase 97 U/L (46-116); Anion Gap 8 (5-15); Aspartate Aminotransferase 23 U/L (13-40); BUN/Creatinine Ratio 42.2 (10.0-20.0); Calcium 9.7 mg/dL (8.7-10.4); Chloride 98 mmol/L (98-107); Potassium 3.6 mmol/L (3.5-5.1); Sodium 139 mmol/L (136-145)
[2024-08-27 05:31] LABS: Albumin 3.8 g/dL (3.2-4.8); Bilirubin, Total 0.7 mg/dL (0.2-1.0)
[2024-08-27 05:33] LABS: Blood Urea Nitrogen 38 mg/dL (9-23); Carbon Dioxide 33 mmol/L (20-31); Glucose 158 mg/dL (74-106)
--- NOTE | 2024-08-27 06:19 | DVHPNRES ---
Progress Note Date Seen: Aug 27, 2024 Resident Creating Document: CALI WITT Medical Necessity Reason Pt with a Central, PICC or Fol: Yes The following are medically ne: Central Line, Vigil Catheter Reason for vigil catheter: Strict I&O Subjective Review of Systems Patient is 73 years old female with past medical history of asthma, COPD, on home oxygen NCO2 2L/mnt, CAD-CA, CHF, pulmonary hypertension, hypertension, hyperlipidemia, rheumatoid arthritis, gout, anemia came to the hospital with shortness of breaths. Information gathered from reviewing the chart and talking to the family. Having chest pain and shortness of breaths for couple of days before she came into the hospital. Patient was admitted the hospital 1 month before with the abdominal pain, pneumonia. Following discharge patient was sent to [facility] for rehabilitation. Significant initial lab workup-troponin I with a normal limit, BNP elevated 273. CXR-Patchy bibasilar airspace opacities. Cardiomegaly. CT head-08/12/2024 -Very mild cortical atrophy otherwise unremarkable study. CT angio on 08/13/2024- grossly enlarged the main pulmonary artery measures 5.3 cm in caliber, right pulmonary artery measures 3.13 cm in caliber in the left pulmonary artery measures 2.67 cm in caliber. Heart is enlarged. There is a posterior consolidated right lower lobe evidence for bilateral interstitial infiltrates and possibly edema. No evidence for pulmonary embolus the ascending aorta measures 3.77 cm. Also bilateral small consolidates in the posterior right and left lower lobes. Grossly enlarged pulmonary arteries underlying pulmonary arterial hypertension is suspected no pulmonary embolus. There are bilateral infiltrates in the lung bases. One 08/13/2024 Doppler study of the lower extremity negative for DVT. ECHO 2D on 08/14/24 revealed-LVEF 60%, concentric left ventricular hypertrophy with right ventricle and right atrial enlargement. On 08/14/2024- MRI of the brain-no acute abnormality noted. On 08/18/2023 CT head- No acute intracranial abnormality.. Patient had several visits over the year in this hospital. In July 17, 2024, April 16, 2024, June 16, 2023, February 2023, August 14, 2022, September 2012, August 2012, August 2012 Code assist was called on 08/12/2024-patient was found to have unresponsive, stiffness of the bilateral upper and lower extremity, bradycardia, agonal respiration. Code assist was converted to code blue were severe was initiated by bedside RN. Status post CPR. ROSC 20 minutes Patient was intubated on 08/12/2024. Left internal jugular central line was placed on 08/12/2024 Bronchoscopy was done on 08/12/2024-impression- Left lower lobe atelectasis due to mucous plugging. Mucous plugging from L6-L10 and R1-R3 Echo 2D- 04/12/2024 revealed an LVEF of 50% with moderate LVH, RV and left atrium enlargement. The patient also underwent a recent right and left cardiac catheterization on 12/2023 revealing no significant coronary artery disease, elevated left ventricular end-diastolic pressures indicating diastolic heart failure, and pulmonary hypertension deemed to be multifactorial primarily secondary to diastolic heart failure in addition to chronic lung processes for which she was initiated on Sildenafil therapy on 04/2024. Patient had nuclear stress test in -03/19/2023 negative for ischemia, LVEF 59% PMH-heart failure, COPD, asthma, pulmonary hypertension, CAD, CA, hypertension, hyperlipidemia, diabetes mellitus type 2, COPD, asthma, gout, rheumatoid arthritis, anemia PSH- tubal ligation, right foot surgery, tonsillectomy, bilateral total knee replacement, right eye surgery, Allergy- , levofloxacin, ceftriaxone Personal History/ Social History- No history of smoking, alcohol and other drug abuse Patient was seen today for clinical evaluation. Labs and chart reviewed. Overnight patient's BP ranging from 82-112/34- 66, pulse 67-95, temperature--7.4 98.9 I/O , intake 943, output 1650, negative balance 707 Patient's eye opening but no communication, Patient on Ertapenem On 08/23/2024 urine culture presumptive Nell albicans Patient is due for tracheostomy today Patient has Vigil's catheter was changed on 0 08/25/[address] head on 08/24/2024-1. No acute intracranial hemorrhage. 2. No CT findings of territorial ischemia. ABG CXR no significant change WBC 7.1> 7.2> 14.1> 11.4> 9.3> 12.1>? 12.9 >12.9> 15.0> 13.9> 15.5> 16.1> 14.4> 18.2> 20.1> 21.3> 19.7> 15.2 Hemoglobin 13.1> 11.9> 10.8> 11.0> 10.5> 11.9> 12.5> 12.9> 12.7> 11.9> 9.5> 11.6> 11.5> 11.9> 11.3> 11.7 platelet 276>> 302 264> 252> 229> 217> 228> 242> 295> 167> 221> 197> 148> 177> 177> 189> 179> 149 Sodium 137> 142> 147> 146> 148> 148> 143> 148>> 143 >140> 139> 140> 137> 138> 139> 140> 136> 136> 138> 139 Potassium> 3.9> 4.0> 3.7> 3.6> 3.7> 3.7> 3.5> 3.8> 3.5> 3.8> 3.9> 3.2> 3.2> 3.6> 3.7> 3.5> 4.1> 3.7> 3.6> 3.6 Serum creatinine 0.92> 0.87> 1.22> 1.21> 1.19> 0.98> 0.78> 0.81>0.88> 0.74> 0.65> 0.74> 0.84> 0.91> 0.78> 0.90 BUN 18> 31> 26> 29> 26> 22> 24> 31> 23> 19> 19> 25> 23> 23> 35> 38 Serum> bilirubin 0.5> 0.6>0.5> 0.5 0.8> 1.2> 0.9 > 1.0> 0.8> 0.7> .5 >0.7 AST> 20 88> 50> 37> 43> 49> 61> 33> 28> 23> 23 ALT 17> 91> 69> 56> 58> 70> 108> 80> 63> 53> 41>33> 33 Blood culture no growth so far Respiratory Culture no growth Patient on antibiotic ertapenem Provider spoke to patient's daughter Ms. Nieves Levy,-[phone], discussed patient's current medical condition, plan of care, answered her questions Objective vital signs Vital Sign Date Time Temp Pulse Resp B/P (MAP) Pulse Ox O2 Delivery O2 Flow Rate FiO2 4/2/25 06:03 112/56 08/27/24 05:57 92 18 98 30 08/27/24 04:00 98.7 98.7 08/27/24 04:00 Mechanical Ventilator+ Total Intake and Output 08/26/24 08/26/24 08/27/24 15:00 23:00 07:00 Intake Total 943 ml 0 ml Output Total 525 ml 1125 ml Balance 418 ml -1125 ml medications Current Medications Medications Dose Ordered Sig/Kristen Route Start Time Stop Time Status Last Admin Dose Admin Ondansetron HCl 4 mg Q4HP PRN IV 08/11/24 13:00 Docusate Sodium 100 mg BIDPRN PRN PO 08/11/24 13:00 Acetaminophen 650 mg Q6HP PRN PO 08/11/24 13:00 Albuterol 2.5 mg Q6HWA NEB 08/11/24 18:00 08/27/24 05:57 2.5 MG Ipratropium [place] 0.5 mg Q6HWA NEB 08/11/24 18:00 08/27/24 05:57 0.5 MG Albuterol 2.5 mg Q2HPRN PRN NEB 08/11/24 20:45 08/20/24 10:09 2.5 MG Ipratropium [place] 0.5 mg Q2HPRN PRN NEB 08/11/24 20:45 08/20/24 10:09 0.5 MG Pantoprazole Sodium 40 mg DAILY IV 08/13/24 10:00 08/26/24 11:10 40 MG Sildenafil Citrate 20 mg TID@08,14,20 PO 08/14/24 14:00 08/26/24 20:43 20 MG Hydralazine HCl 10 mg Q6HP PRN IV 08/15/24 15:30 08/24/24 18:01 10 MG Labetalol HCl 20 mg Q2HPRN PRN IV 08/19/24 15:15 08/20/24 06:20 20 MG Clonidine HCl 0.1 mg BID PO 08/19/24 22:00 08/26/24 21:52 0.1 MG Sodium Chloride 10 ml QSHIFT@10,22 IV 08/20/24 22:00 08/26/24 21:50 10 ML Carvedilol 12.5 mg Q12HR PO 08/21/24 22:00 08/26/24 23:59 12.5 MG Furosemide 20 mg BIDD IV 08/23/24 06:00 08/27/24 06:03 20 MG Diagnostic Test (Pha) 1 strip ACHS 08/23/24 17:00 08/26/24 21:50 1 STRIP Insulin Human Regular ACHS SC 08/23/24 17:00 08/26/24 21:51 3 UNITS Dextrose 50 ml UD PRN IV 08/23/24 14:15 Bisacodyl 10 mg QHSP PRN AK 08/24/24 14:15 Potassium Chloride 100 ml @ 50 mls/hr Q2H IV 08/24/24 22:00 08/25/24 01:59 UNV Ertapenem 1 gm/ Sodium Chloride 50 ml @ 100 mls/hr 1400 IV 08/25/24 14:00 08/26/24 16:26 100 MLS/HR Enteral Nutritional Formula 1,000 ml 35ML/HR GT 08/25/24 12:00 Amino Acid Protein 30 ml BID GT 08/25/24 22:00 08/26/24 21:49 30 ML Prednisone 10 mg DAILY NG 08/27/24 10:00 Amlodipine Besylate 10 mg DAILY@1700 PO 08/27/24 17:00 Examination General examination- patient on mechanical ventilation, HEENT- PEERLA, no acute nasal discharge Cardiovascular- S1-S2 audible, rate and rhythm regular, no murmur Respiratory-CTAB Gastrointestinal-nontender, bowel sound+. Nondistended Musculoskeletal-swan neck deformity on bilateral hands+, edematous bilateral hands Lower extremity- No leg edema Skin- no acute rash or purpura laboratory and microbiology Laboratory Tests 08/27/24 04:30 Test 08/27/24 04:30 Range/Units Serum Glucose 158 H 74-106 mg/dL Microbiology Date/Time Source Procedure Growth Status 08/25/24 13:42 Nose MRSA Screen - Final Complete 08/23/24 18:36 Voided Urine Urine Culture - Preliminary Presumptive Nell albicans Resulted 08/13/24 04:40 Blood Blood Culture - Final NO GROWTH AFTER 5 DAYS OF INCUBATION. Complete 08/13/24 02:49 Sputum Gram Stain - Final Complete 08/13/24 02:49 Sputum Respiratory Culture - Final Complete Problem List/Assessment/Plan Problem List/Assessment/Plan Assessment and plan Neurology # metabolic encephalopathy/toxic encephalopathy/hypoxic encephalopathy -status post cardiac arrest, status post CPR -patient on mechanical ventilation, -Reported anisocoria with right-sided slightly weaker -CT head very mild cortical atrophy -MRI of the brain- No acute intracranial pathology -continue current management Cardiovascular -Acute diastolic heart failure -[place] set AF patient on DVT prophylaxis -paroxysmal Bradycardia -Echo 2D on 08/13/2024-LVEF 60%, concentric LVH with right ventricle and right atrial enlargement. -CAD -pulmonary hypertension -history of hypertension -hyperlipidemia -continue nebulization -continue Coreg 12.5 mg b.i.d.- hold if bradycardia -patient is due for tracheostomy today Respiratory -acute hypoxic respiratory failure -acute exacerbation of COPD -pulmonary hypertension -failed CPAP trial on 08/18/2024 -Blood culture no growth so far -[place] [address] colony-forming units per mL yeast -Respiratory Culture preliminary no growth -continue nebulization -sildenafil 20 mg t.i.d. Gastrointestinal -transaminitis -monitor CMP Genitourinary/renal -suspected UTI -HECTOR likely due to VMN -right kidney cyst in the lower pole -avoid dehydration and nephrotoxic drugs Infectious disease -Septic shock- Improved -acute pneumonia Gram-positive versus Gram-negative -continue ertapenem as prescribed Hemato oncology -anemia of chronic disease -monitor CBC Endocrinology/ metabolic disorder -obesity Musculoskeletal -rheumatoid arthritis -gout -continue current management Skin or elementary -wound care consult in place PICC line ETT Vigil's catheter Goals of care/advance care planning Code status ; discussed with >25 minutes PUD prophylaxis: Pantoprazole DVT prophylaxis: Lovenox Plan discussed with Dr. Topete, nursing staff, daughter Total time spent on patient evaluation, chart review, assessment and plan, total critical time spent including monitoring mechanical ventilation excluding procedure 83 minutes Plan discussed with: Daughter, Other (RN) My Orders My Orders Orders - CALI WITT RESIDENT Procedure Category Date Status Time Chest Portable XY 08/27/24 Resulted 04:00 Abg W/ Co-Ox RT 08/27/24 Logged 04:00 Prednisone Tablet PHA 08/27/24 In Process 10:00 * Gi Dvh Camera Supervisor CONS 08/26/24 Transmitted 16:59 Dietary Evaluation Review Recommendations by RD: Protein Supplementation Comments: 1) Increase TF rate from 30 mL/hr to 35 mL/hr. Initiate Pro-Stat @ 30 mL bid. Goal rate (including Pro-Stat) will provide 1208 kcals, 77g Pro, and 1178 mL free H2O (including flushes) per 24 hrs. Goal rate will meet ~ 100% estimated daily energy needs and ~94% estimated daily protein needs 2) Initiate vitamin C @ 500 mg and zinc sulfate @ 220 mg qd for 7 days 3) Advance to cardiac diet when medically feasible, pending MANAGER STATISTICAL approval 4) F/u with cardiology and pulmonology 5) Continue to monitor I&O, labs, and skin integrity Expected Outcomes/Goals: 1) appetite and labs to improve 2) diet to advance 3) f/u in 2-3 Interpretation of weight loss: up to 20% in 1 year CALI WITT RESIDENT Aug 27, 2024 06:19
[2024-08-27 08:50] LABS: Base Excess 7.2 mmol/L (-2.0-3.0)
--- NOTE | 2024-08-27 09:48 | DVHPN2 ---
Progress Note - Dictate Date Seen: Aug 27, 2024 Medical Necessity Reason Pt with a Central, PICC or Fol: Yes The following are medically ne: Central Line, Vigil Catheter Reason for vigil catheter: Strict I&O Subjective Ms. Recinos is a 73 years old female with a history of hypertension, dyslipidemia, coronary artery disease, heart attack, congestive heart failure, asthma, COPD on home oxygen, gout, anemia, the patient was admitted found her [facility] on 08/11/2024 with a chief company of shortness of breath I have seen and examined the patient, I have talked to her nurse. She was does not respond to my verbal stimuli, Eyes are closed with strong resistance when I tried to open them. No spontaneous movement in the extremities Pupils are equal (inadequate physical examination) ABG, 08/12/2024: Respiratory acidosis, hypoxia WBC/HB/PLT/MCV, 08/12/2024: 7.2/11.9/302/85.7, 08/19/2024: 13.9/12.9/167/86.5 CMP, 08/12/2024: Unremarkable HGB A1c, 04/11/2024: 500 TBI/AST/ALT/AP, 08/19/2024: 0.19/61/108/86 TG/HDL/LDL/HDL, 05/2023: 101/2026/186/45 Vitamin B12, 03/2024: 1161 TSH, 03/2024: 1.39 EEG 08/13/2024: Remarkably abnormal Extremity venous study, 08/13/2024: No evidence of right or left femoropopliteal venous thrombosis. Chest x-ray, 08/12/2024: Left central venous catheter overlies the left upper chest and may be not position. Clinical correlation advised. Endotracheal tube in satisfactory position. Left central venous catheter in uncertain position Chest x-ray, 08/15/24: Hazy bilateral opacities are unchanged CXR, 08/26/2024: Pulmonary venous congestion CT head, 08/12/2024: Very mild cortical atrophy otherwise unremarkable study CT head, 08/17/2024: No acute intracranial abnormality CT head, 08/24/2024: 1. No acute intracranial hemorrhage. 2. No CT findings of territorial ischemia CTA chest, 08/13/2024: Grossly enlarged pulmonary arteries underlying pulmonary arterial hypertension is suspected no pulmonary embolus There are bilateral infiltrates in the lung bases MRI brain, 07/17/24: No acute intracranial pathology vital signs Vital Sign Date Time Temp Pulse Resp B/P (MAP) Pulse Ox O2 Delivery O2 Flow Rate FiO2 08/27/24 08:16 78 19 107/57 (74) 99 30 08/27/24 08:00 98.7 98.7 08/27/24 06:00 Mechanical Ventilator+ Total Intake and Output 08/26/24 08/26/24 08/27/24 15:00 23:00 07:00 Intake Total 943 ml 0 ml Output Total 525 ml 1125 ml Balance 418 ml -1125 ml medications Current Medications Medications Dose Ordered Sig/Kristen Route Start Time Stop Time Status Last Admin Dose Admin Ondansetron HCl 4 mg Q4HP PRN IV 08/11/24 13:00 Docusate Sodium 100 mg BIDPRN PRN PO 08/11/24 13:00 Acetaminophen 650 mg Q6HP PRN PO 08/11/24 13:00 Albuterol 2.5 mg Q6HWA NEB 08/11/24 18:00 08/27/24 05:57 2.5 MG Ipratropium [place] 0.5 mg Q6HWA NEB 08/11/24 18:00 08/27/24 05:57 0.5 MG Albuterol 2.5 mg Q2HPRN PRN NEB 08/11/24 20:45 08/20/24 10:09 2.5 MG Ipratropium [place] 0.5 mg Q2HPRN PRN NEB 08/11/24 20:45 08/20/24 10:09 0.5 MG Pantoprazole Sodium 40 mg DAILY IV 08/13/24 10:00 08/26/24 11:10 40 MG Sildenafil Citrate 20 mg TID@08,14,20 PO 08/14/24 14:00 08/26/24 20:43 20 MG Hydralazine HCl 10 mg Q6HP PRN IV 08/15/24 15:30 08/24/24 18:01 10 MG Labetalol HCl 20 mg Q2HPRN PRN IV 08/19/24 15:15 08/20/24 06:20 20 MG Clonidine HCl 0.1 mg BID PO 08/19/24 22:00 08/26/24 21:52 0.1 MG Sodium Chloride 10 ml QSHIFT@10,22 IV 08/20/24 22:00 08/26/24 21:50 10 ML Carvedilol 12.5 mg Q12HR PO 08/21/24 22:00 08/26/24 23:59 12.5 MG Furosemide 20 mg BIDD IV 08/23/24 06:00 08/27/24 06:03 20 MG Diagnostic Test (Pha) 1 strip ACHS 08/23/24 17:00 08/27/24 06:36 1 STRIP Insulin Human Regular ACHS SC 08/23/24 17:00 08/27/24 06:37 3 UNITS Dextrose 50 ml UD PRN IV 08/23/24 14:15 Bisacodyl 10 mg QHSP PRN MA 08/24/24 14:15 Potassium Chloride 100 ml @ 50 mls/hr Q2H IV 08/24/24 22:00 08/25/24 01:59 UNV Ertapenem 1 gm/ Sodium Chloride 50 ml @ 100 mls/hr 1400 IV 08/25/24 14:00 08/26/24 16:26 100 MLS/HR Enteral Nutritional Formula 1,000 ml 35ML/HR GT 08/25/24 12:00 Amino Acid Protein 30 ml BID GT 08/25/24 22:00 08/26/24 21:49 30 ML Prednisone 10 mg DAILY NG 08/27/24 10:00 Amlodipine Besylate 10 mg DAILY@1700 PO 08/27/24 17:00 objective The patient is well-nourished and well-developed with no distress. MENTAL STATUS: Subjective, CRANIAL NERVES: pupils are equal round and reactive to light briskly, normal external eye movement, normal sensation and motor examination in the lateral trigeminal nerve distribution, no facial weakness SENSATION: Responses to pain stimuli. MOTOR: Normal tone in the upper and lower extremity. Normal muscle bulk. No fasciculations. No spontaneous extremity movement REFLEXES: Deep tendon reflexes are symmetrical. No pathological reflexes. CEREBELLAR/COORDINATION: Deferred GAIT/STATION: deferred. laboratory and microbiology Laboratory Tests 08/27/24 04:30 Test 08/27/24 04:30 Range/Units Serum Glucose 158 H 74-106 mg/dL Problem List Coma, resolved Hypoxic encephalopathy Metabolic encephalopathy Toxic encephalopathy Cardiopulmonary arrest Respiratory failure Hypoxia Status post CPR Sepsis Pneumonia Acidosis Seizure-like activity to rule out seizure attack Reported anisocoria with right-sided slightly weaker on 08/14/2024, evident physical examination on 08/19/2024 Assessment/Plan Monitoring Supportive treatment ICU care Follow-up labs MRI head Respiratory support Stabilize vitals Antibiotics Oxygen DVT prophylaxis GI prophylaxis Up to chair Physical therapy More recommendation per clinical course This medical document was created using an electronic medical record system with [employer] dictation system. Although this document has been carefully reviewed, there may still be some phonetic and typographical errors. These areas are purely typographical due to imperfections of the software programs, and do not reflect any compromise in the patient's medical care. Prognosis guarded Dietary Evaluation Review Recommendations by RD: Protein Supplementation Comments: 1) Increase TF rate from 30 mL/hr to 35 mL/hr. Initiate Pro-Stat @ 30 mL bid. Goal rate (including Pro-Stat) will provide 1208 kcals, 77g Pro, and 1178 mL free H2O (including flushes) per 24 hrs. Goal rate will meet ~ 100% estimated daily energy needs and ~94% estimated daily protein needs 2) Initiate vitamin C @ 500 mg and zinc sulfate @ 220 mg qd for 7 days 3) Advance to cardiac diet when medically feasible, pending CHIEF TELEPHONE OPERATOR approval 4) F/u with cardiology and pulmonology 5) Continue to monitor I&O, labs, and skin integrity Expected Outcomes/Goals: 1) appetite and labs to improve 2) diet to advance 3) f/u in 2-3 Interpretation of weight loss: up to 20% in 1 year Plan discussed with: PATRIZIA Gottlieb MD Aug 27, 2024 09:48
[2024-08-27] MEDS ORDERED: LORazepam 2MG/ML-1ML VIAL IV PRN (10:00)
[2024-08-27] MEDS: predniSONE 5 MG TAB NG SCH (10:00)
[2024-08-27] MEDS ORDERED: ePHEDrine SULFATE 50 MG/ML AMP IV PRN (12:15)
[2024-08-27] MEDS ORDERED: ONDANSETRON HCL 4 MG/2 ML VIAL IV PRN (12:15)
[2024-08-27] MEDS ORDERED: FLUMAZENIL 0.1 MG/ML INJ 10ML MDV IV PRN (12:15)
[2024-08-27] MEDS ORDERED: HYDROmorphone HCL 2 MG/ML VL/or syr IV PRN (12:15)
[2024-08-27] MEDS ORDERED: oxyCODONE HCL 5MG TAB PO PRN (12:15)
[2024-08-27] MEDS ORDERED: NALOXONE HCL 0.4 MG/ML VIAL IV PRN (12:15)
[2024-08-27] MEDS ORDERED: fentaNYL CITRATE 100 MCG/2 ML VL IV PRN (12:15)
[2024-08-27] MEDS ORDERED: hydrALAZINE HCL 20 MG/ML VL IV PRN (12:15)
[2024-08-27] MEDS ORDERED: HYDROCORTISONE SOD SUCC 100 MG/2ML INJ VIAL ONE (12:31)
[2024-08-27] MEDS ORDERED: MIDAZOLAM HCL 2MG/2ML 2ml VIAL (1mg/ml) ONE (12:31)
[2024-08-27] MEDS ORDERED: MORPHINE SULF PF 5 MG/10 ML VIAL ONE (12:31)
[2024-08-27] MEDS ORDERED: SODIUM CHLORIDE LOCK 10 ML ONE (12:31)
[2024-08-27] MEDS ORDERED: DexAMETHasone SOD PHOS 10MG/1ML VIAL INJ ONE (12:31)
[2024-08-27] MEDS ORDERED: ROCURONIUM 10MG/ML 10ML VIAL IV ONE (12:31)
[2024-08-27] MEDS ORDERED: fentaNYL CITRATE 5 ML ONE (12:31)
[2024-08-27] MEDS ORDERED: KETAMINE 50mg/ML 1ml syringe ONE (12:31)
[2024-08-27] MEDS: BUPIVACAINE 0.25% INJ 50ML VIAL ONE (13:07)
[2024-08-27] MEDS: VANCOMYCIN HCL 1000 MG VL ONE (13:14)
--- NOTE | 2024-08-27 14:08 | DVHOP2 ---
Operative Report [id number] VENTILATOR DEPENDENCE ELECTIVE TRACHEOSTOMY EBL 5 CC NO DRAINS NO ACTIVE BLEEDING NO COMPLICATIONS SHELBY OLMOS MD Aug 27, 2024 14:08
--- NOTE | 2024-08-27 14:38 | DVHOP ---
DATE OF SURGERY: 08/27/2024 PREOPERATIVE DIAGNOSIS: Ventilator dependence. POSTOPERATIVE DIAGNOSIS: Ventilator dependence. PROCEDURE: Elective tracheostomy. SURGEON: Viral Drummond MD PATTERN CLEANER: None. ANESTHESIA: General. BLOOD LOSS: Close to 5 mL. DRAINS: No drains were used. COMPLICATIONS: No complications were encountered. DESCRIPTION OF PROCEDURE: The patient was prepped and draped in the usual sterile fashion in the supine position with the neck extended out and the incision was applied in a transverse fashion anteriorly a finger and a half breadth above the sternal notch, going from the sternomastoid on the left side to the right side and then going around to the platysma. It was divided. The cervical fascia was divided in the midline. The strap muscles were retracted. The thyroid isthmus was divided and secured on either side with the Vicryl suture for hemostasis and then the tracheal rings were exposed, 2, 3 and 4. Cricoid hook was applied to retract the cricoid cartilage upwards and then a U-shaped flap was created on the second, third and fourth tracheal rings, starting from the mid inferior side and then the hinge was on the upper side. A Prolene suture was applied to secure the flap for future identification in case needed postoperatively. The opening was then identified and the ETT was withdrawn, suctioning was done. The opening was dilated and a size 7.5 tracheostomy tube was advanced into position, the bulb inflated to about 7-10 mL and the connection with the ventilator established with good flows as per anesthesia. With the tracheostomy in place, the suturing was done for the platysma on either side using Vicryl suture and skin incision was brought together on either side using silk suture interrupted mattress fashion. Xeroform strip was applied around it. There was no active bleeding noted and the flanges of the tracheostomy tube were secured in place using silk sutures in all 4 quadrants and the patient tolerated the procedure well and was taken back to the ICU in a stable condition. There were no injuries occurred to the major nerves or vessels during the procedure at any time. MD MANUEL Cummings/JOE/IVAN TID: [id number] RECEIPT: [id number] cc: Marty Theodore M.D.
--- NOTE | 2024-08-27 15:12 | DVHPN2 ---
Progress Note - Dictate Date Seen: Aug 27, 2024 Medical Necessity Reason Pt with a Central, PICC or Fol: Yes The following are medically ne: Central Line, Vigil Catheter Reason for vigil catheter: Strict I&O Subjective Patient underwent a tracheostomy today Patient is back on a ventilator vital signs Vital Sign Date Time Temp Pulse Resp B/P (MAP) Pulse Ox O2 Delivery O2 Flow Rate FiO2 08/27/24 12:30 92 16 123/75 (91) 98 08/27/24 12:05 30 08/27/24 12:00 Mechanical Ventilator+ 08/27/24 12:00 99.4 99.4 Total Intake and Output 08/26/24 08/26/24 08/27/24 15:00 23:00 07:00 Intake Total 943 ml 0 ml Output Total 525 ml 1125 ml Balance 418 ml -1125 ml medications Current Medications Medications Dose Ordered Sig/Kristen Route Start Time Stop Time Status Last Admin Dose Admin Ondansetron HCl 4 mg Q4HP PRN IV 08/11/24 13:00 Docusate Sodium 100 mg BIDPRN PRN PO 08/11/24 13:00 Acetaminophen 650 mg Q6HP PRN PO 08/11/24 13:00 Albuterol 2.5 mg Q6HWA NEB 08/11/24 18:00 08/27/24 12:05 2.5 MG Ipratropium [place] 0.5 mg Q6HWA NEB 08/11/24 18:00 08/27/24 12:05 0.5 MG Albuterol 2.5 mg Q2HPRN PRN NEB 08/11/24 20:45 08/20/24 10:09 2.5 MG Ipratropium [place] 0.5 mg Q2HPRN PRN NEB 08/11/24 20:45 08/20/24 10:09 0.5 MG Pantoprazole Sodium 40 mg DAILY IV 08/13/24 10:00 08/27/24 10:43 40 MG Sildenafil Citrate 20 mg TID@08,14,20 PO 08/14/24 14:00 08/27/24 14:47 20 MG Hydralazine HCl 10 mg Q6HP PRN IV 08/15/24 15:30 08/24/24 18:01 10 MG Labetalol HCl 20 mg Q2HPRN PRN IV 08/19/24 15:15 08/20/24 06:20 20 MG Clonidine HCl 0.1 mg BID PO 08/19/24 22:00 08/26/24 21:52 0.1 MG Sodium Chloride 10 ml QSHIFT@10,22 IV 08/20/24 22:00 08/27/24 10:43 10 ML Carvedilol 12.5 mg Q12HR PO 08/21/24 22:00 08/26/24 23:59 12.5 MG Furosemide 20 mg BIDD IV 08/23/24 06:00 08/27/24 06:03 20 MG Diagnostic Test (Pha) 1 strip ACHS 08/23/24 17:00 08/27/24 11:30 1 STRIP Insulin Human Regular ACHS SC 08/23/24 17:00 08/27/24 06:37 3 UNITS Dextrose 50 ml UD PRN IV 08/23/24 14:15 Bisacodyl 10 mg QHSP PRN WI 08/24/24 14:15 Potassium Chloride 100 ml @ 50 mls/hr Q2H IV 08/24/24 22:00 08/25/24 01:59 UNV Ertapenem 1 gm/ Sodium Chloride 50 ml @ 100 mls/hr 1400 IV 08/25/24 14:00 08/27/24 14:48 100 MLS/HR Enteral Nutritional Formula 1,000 ml 35ML/HR GT 08/25/24 12:00 Amino Acid Protein 30 ml BID GT 08/25/24 22:00 08/26/24 21:49 30 ML Prednisone 10 mg DAILY NG 08/27/24 10:00 Amlodipine Besylate 10 mg DAILY@1700 PO 08/27/24 17:00 Lorazepam 1 mg ONCE PRN IV 08/27/24 10:00 objective VITAL SIGNS: Afebrile, stable signs. Intubated.sedated CHEST AND LUNGS: b/l coarse breath sounds HEART: Within normal limits.S1S2 rrr ABDOMEN: Soft.NT ND Ext no c/c/e laboratory and microbiology Laboratory Tests 08/27/24 04:30 Test 08/27/24 04:30 Range/Units Serum Glucose 158 H 74-106 mg/dL Problems(with codes): (1) Pulmonary vascular congestion (2) Ventilator dependence (3) Pneumonia (4) CHF exacerbation (5) COPD exacerbation Prognosis Plan Resume G-tube feedings NPO after midnight on I will tentatively plan to schedule her for an EGD with bedside PEG on 08/29/2024 Dietary Evaluation Review Recommendations by RD: Protein Supplementation Comments: 1) Increase TF rate from 30 mL/hr to 35 mL/hr. Initiate Pro-Stat @ 30 mL bid. Goal rate (including Pro-Stat) will provide 1208 kcals, 77g Pro, and 1178 mL free H2O (including flushes) per 24 hrs. Goal rate will meet ~ 100% estimated daily energy needs and ~94% estimated daily protein needs 2) Initiate vitamin C @ 500 mg and zinc sulfate @ 220 mg qd for 7 days 3) Advance to cardiac diet when medically feasible, pending LEATHER SOFTENER approval 4) F/u with cardiology and pulmonology 5) Continue to monitor I&O, labs, and skin integrity Expected Outcomes/Goals: 1) appetite and labs to improve 2) diet to advance 3) f/u in 2-3 Interpretation of weight loss: up to 20% in 1 year Plan discussed with: Other (Dr Del Rio) HANSA OLMOS MD Aug 27, 2024 15:12
[2024-08-27] MEDS: ceFAZolin 1GM/50ML 50 ML IV ONE (15:15)
--- NOTE | 2024-08-27 16:22 | DVH ---
CHEST RADIOGRAPH Indication: NGT PLACEMENT CONFIRMATION Technique: Single frontal view of the chest was obtained COMPARISON: XY CHEST PORTABLE on DOS: 08/27/24, XY CHEST PORTABLE on DOS: 08/26/24, XY CHEST PORTABLE on DOS: 08/25/24, XY CHEST PORTABLE on DOS: 08/24/24, XY CHEST PORTABLE on DOS: 08/23/24 FINDINGS: Lines and Tubes: Tracheostomy and enteric catheter in satisfactory position. Left central venous cath eter and left-sided SVC, unchanged. Lungs: Congestion Pleura: No effusion. No pneumothorax. Cardiomediastinal contours: Cardiomegaly Bones: Unremarkable IMPRESSION: Nasogastric tube in satisfactory position. No significant interval change.
[2024-08-27] MEDS ORDERED: CARBAMIDE PEROXIDE 6.5% OTIC(EAR) SOLN 15ML EACH EAR ONE (17:30)
[2024-08-27] MEDS: amLODIPine BESYLATE 5 MG TAB PO SCH (17:49)
[2024-08-27] MEDS: CARBAMIDE PEROXIDE 6.5% OTIC(EAR) SOLN 15ML EACH EAR SCH (17:55)
--- NOTE | 2024-08-27 23:45 | DVHPN2 ---
Progress Note - Dictate Date Seen: Aug 27, 2024 Medical Necessity Reason Pt with a Central, PICC or Fol: Yes The following are medically ne: Central Line, Vigil Catheter Reason for vigil catheter: Strict I&O Subjective Patient was seen and evaluated in follow up in the ICU. Patient is intubated and sedated on ventilator. 30% FiO2. Patient is unresponsive to verbal stimuli. WBC 15.2, CO2 33, BUN 38. Chest x-ray cardiomegaly with mild congestion. Patients family would like to proceed with trach and is scheduled for procedure today. vital signs Vital Sign Date Time Temp Pulse Resp B/P (MAP) Pulse Ox O2 Delivery O2 Flow Rate FiO2 08/27/24 12:05 87 15 120/64 (82) 98 30 08/27/24 12:00 99.4 99.4 08/27/24 10:00 Mechanical Ventilator+ Total Intake and Output 08/26/24 08/26/24 08/27/24 15:00 23:00 07:00 Intake Total 943 ml 0 ml Output Total 525 ml 1125 ml Balance 418 ml -1125 ml medications Current Medications Medications Dose Ordered Sig/Kristen Route Start Time Stop Time Status Last Admin Dose Admin Ondansetron HCl 4 mg Q4HP PRN IV 08/11/24 13:00 Docusate Sodium 100 mg BIDPRN PRN PO 08/11/24 13:00 Acetaminophen 650 mg Q6HP PRN PO 08/11/24 13:00 Albuterol 2.5 mg Q6HWA NEB 08/11/24 18:00 08/27/24 12:05 2.5 MG Ipratropium [place] 0.5 mg Q6HWA NEB 08/11/24 18:00 08/27/24 12:05 0.5 MG Albuterol 2.5 mg Q2HPRN PRN NEB 08/11/24 20:45 08/20/24 10:09 2.5 MG Ipratropium [place] 0.5 mg Q2HPRN PRN NEB 08/11/24 20:45 08/20/24 10:09 0.5 MG Pantoprazole Sodium 40 mg DAILY IV 08/13/24 10:00 08/27/24 10:43 40 MG Sildenafil Citrate 20 mg TID@08,14,20 PO 08/14/24 14:00 08/26/24 20:43 20 MG Hydralazine HCl 10 mg Q6HP PRN IV 08/15/24 15:30 08/24/24 18:01 10 MG Labetalol HCl 20 mg Q2HPRN PRN IV 08/19/24 15:15 08/20/24 06:20 20 MG Clonidine HCl 0.1 mg BID PO 08/19/24 22:00 08/26/24 21:52 0.1 MG Sodium Chloride 10 ml QSHIFT@10,22 IV 08/20/24 22:00 08/27/24 10:43 10 ML Carvedilol 12.5 mg Q12HR PO 08/21/24 22:00 08/26/24 23:59 12.5 MG Furosemide 20 mg BIDD IV 08/23/24 06:00 08/27/24 06:03 20 MG Diagnostic Test (Pha) 1 strip ACHS 08/23/24 17:00 08/27/24 06:36 1 STRIP Insulin Human Regular ACHS SC 08/23/24 17:00 08/27/24 06:37 3 UNITS Dextrose 50 ml UD PRN IV 08/23/24 14:15 Bisacodyl 10 mg QHSP PRN [place] 08/24/24 14:15 Potassium Chloride 100 ml @ 50 mls/hr Q2H IV 08/24/24 22:00 08/25/24 01:59 UNV Ertapenem 1 gm/ Sodium Chloride 50 ml @ 100 mls/hr 1400 IV 08/25/24 14:00 08/26/24 16:26 100 MLS/HR Enteral Nutritional Formula 1,000 ml 35ML/HR GT 08/25/24 12:00 Amino Acid Protein 30 ml BID GT 08/25/24 22:00 08/26/24 21:49 30 ML Prednisone 10 mg DAILY NG 08/27/24 10:00 Amlodipine Besylate 10 mg DAILY@1700 PO 08/27/24 17:00 Lorazepam 1 mg ONCE PRN IV 08/27/24 10:00 Fentanyl Citrate 25 mcg Q1HP PRN IV 08/27/24 12:15 08/27/24 15:00 Hydromorphone HCl 0.5 mg Q10M PRN IV 08/27/24 12:15 08/27/24 15:00 Oxycodone HCl 10 mg ONCE PRN PO 08/27/24 12:15 08/27/24 15:00 objective GENERAL: Intubated on ventilator. LUNGS: Decreased breath sounds. CARDIOVASCULAR: Heart sounds are good. ABDOMEN: Soft. laboratory and microbiology Laboratory Tests 08/27/24 04:30 Test 08/27/24 04:30 Range/Units Serum Glucose 158 H 74-106 mg/dL Problem List Metabolic encephalopathy/toxic encephalopathy/hypoxic encephalopathy. Status post cardiac arrest. Acute diastolic heart failure. New onset AFib. Paroxysmal Bradycardia . Acute hypoxic respiratory failure. Acute exacerbation of COPD. Pulmonary hypertension. Transaminitis. HECTOR. Pneumonia. Anemia of chronic disease. Obesity. Rheumatoid arthritis. Gout. Hypertension. Hyperlipidemia. Assessment/Plan Continued all current supportive medical care. Amlodipine, Coreg, Clonidine. IV antibiotics as ordered. Diuretics with Lasix. IV Labetalol for SBP >150 IV Hydralazine for SBP > 150. GI prophylactics. Additional plan as per the hospital course. Critical care time of 45 minutes provided to include time spent evaluation of patient at bedside, when appropriate patient/family education for diagnosis, treatment plan, review of pertinent medical information and discussion of care with specialty providers and PCP. Mechanical ventilator parameters, treatment and adjustments have personally been reviewed by me and treatment plan by development engineer has also been reviewed. Dietary Evaluation Review Recommendations by RD: Protein Supplementation Comments: 1) Increase TF rate from 30 mL/hr to 35 mL/hr. Initiate Pro-Stat @ 30 mL bid. Goal rate (including Pro-Stat) will provide 1208 kcals, 77g Pro, and 1178 mL free H2O (including flushes) per 24 hrs. Goal rate will meet ~ 100% estimated daily energy needs and ~94% estimated daily protein needs 2) Initiate vitamin C @ 500 mg and zinc sulfate @ 220 mg qd for 7 days 3) Advance to cardiac diet when medically feasible, pending AUTOMOBILE BODY REPAIR CHIEF approval 4) F/u with cardiology and pulmonology 5) Continue to monitor I&O, labs, and skin integrity Expected Outcomes/Goals: 1) appetite and labs to improve 2) diet to advance 3) f/u in 2-3 Interpretation of weight loss: up to 20% in 1 year Plan discussed with: ASHLEY Waggoner MD Aug 27, 2024 13:13
[2024-08-28] VITALS (100 sets, daily range): BP systolic 76–141; BP diastolic 43–85; PULSE 79–100; RESP 17–23; TEMP 97.3–98.5; O2SAT 94–100
[2024-08-28 04:53] LABS: Basophils # (auto) 0 10 ^3/uL (0-0.2); Basophils % (auto) 0.2 % (0.0-2.0); Eosinophils # (auto) 0 10 ^3/uL (0-0.8); Hematocrit 38.9 % (36.0-46.0); Hemoglobin 12.8 g/dL (12.2-16.2); Lymphocytes # (auto) 0.4 10 ^3/uL (0.4-5.4); Mean Corpuscular Hemoglobin 27.8 pg (28.0-32.0); Mean Corpuscular Volume 84.3 fL (80.0-100.0); Monocytes # (auto) 0.6 10 ^3/uL (0-1.3); Monocytes % (auto) 4.3 % (0.0-12.0); Neutrophils # (auto) 13.6 10 ^3/uL (1.6-8.6); Neutrophils % (auto) 92.5 % (37.0-80.0); Platelet Count (auto) 193 10^3/uL (140-450); Red Blood Cells 4.61 10^6/uL (4.0-5.20); Red Cell Distribution Width 15.8 % (11.8-14.3); White Blood Cell 14.7 10^3/uL (4.4-10.8)
[2024-08-28 05:11] LABS: Alanine Aminotransferase 35 U/L (7-40); Albumin 4.2 g/dL (3.2-4.8); Alkaline Phosphatase 109 U/L (46-116); Anion Gap 9 (5-15); Aspartate Aminotransferase 31 U/L (13-40); BUN/Creatinine Ratio 37.3 (10.0-20.0); Calcium 9.8 mg/dL (8.7-10.4); Chloride 102 mmol/L (98-107); Potassium 3.6 mmol/L (3.5-5.1); Sodium 142 mmol/L (136-145); Total Protein 6.6 g/dL (5.7-8.2)
[2024-08-28 05:12] LABS: Bilirubin, Total 0.9 mg/dL (0.2-1.0)
[2024-08-28 05:14] LABS: Blood Urea Nitrogen 38 mg/dL (9-23); Carbon Dioxide 31 mmol/L (20-31); Glucose 207 mg/dL (74-106)
[2024-08-28 06:01] LABS: Base Excess 4.8 mmol/L (-2.0-3.0)
--- NOTE | 2024-08-28 06:11 | DVH ---
EXAM: XR Chest, 1 View CLINICAL INDICATION: CHF TECHNIQUE: Frontal view of the chest. COMPARISON: XY CHEST PORTABLE on DOS: 08/27/24, XY CHEST PORTABLE on DOS: 08/27/24, XY CHEST PORTABLE o n DOS: 08/26/24, XY CHEST PORTABLE on DOS: 08/25/24, XY CHEST PORTABLE on DOS: 08/24/24 FINDINGS: LUNGS AND PLEURAL SPACES: Mild congestive heart failure. No consolidation. No pneumothorax. HEART: Unremarkable. No cardiomegaly. MEDIASTINUM: Unremarkable. Normal mediastinal contour. BONES/JOINTS: Unremarkable. No acute fracture. TUBES, LINES AND DEVICES: Tracheostomy tube in satisfactory position. Enteric tube tip cannot be s een but is below the diaphragm. OTHER FINDINGS: . IMPRESSION: Mild congestive heart failure.
--- NOTE | 2024-08-28 06:46 | DVHPNRES ---
Progress Note Date Seen: Aug 28, 2024 Resident Creating Document: CALI WITT Medical Necessity Reason Pt with a Central, PICC or Fol: Yes The following are medically ne: Central Line, Vigil Catheter Reason for vigil catheter: Strict I&O Subjective Review of Systems Patient is 73 years old female with past medical history of asthma, COPD, on home oxygen NCO2 2L/mnt, CAD-NC, CHF, pulmonary hypertension, hypertension, hyperlipidemia, rheumatoid arthritis, gout, anemia came to the hospital with shortness of breaths. Information gathered from reviewing the chart and talking to the family. Having chest pain and shortness of breaths for couple of days before she came into the hospital. Patient was admitted the hospital 1 month before with the abdominal pain, pneumonia. Following discharge patient was sent to [facility] for rehabilitation. Significant initial lab workup-troponin I with a normal limit, BNP elevated 273. CXR-Patchy bibasilar airspace opacities. Cardiomegaly. CT head-08/12/2024 -Very mild cortical atrophy otherwise unremarkable study. CT angio on 08/13/2024- grossly enlarged the main pulmonary artery measures 5.3 cm in caliber, right pulmonary artery measures 3.13 cm in caliber in the left pulmonary artery measures 2.67 cm in caliber. Heart is enlarged. There is a posterior consolidated right lower lobe evidence for bilateral interstitial infiltrates and possibly edema. No evidence for pulmonary embolus the ascending aorta measures 3.77 cm. Also bilateral small consolidates in the posterior right and left lower lobes. Grossly enlarged pulmonary arteries underlying pulmonary arterial hypertension is suspected no pulmonary embolus. There are bilateral infiltrates in the lung bases. One 08/13/2024 Doppler study of the lower extremity negative for DVT. ECHO 2D on 08/14/24 revealed-LVEF 60%, concentric left ventricular hypertrophy with right ventricle and right atrial enlargement. On 08/14/2024- MRI of the brain-no acute abnormality noted. On 08/18/2023 CT head- No acute intracranial abnormality. Patient has been off sedatives for over weeks, patient in vegetative state, only opening, no communication or falling,. Patient had several visits over the year in this hospital. In July 17, 2024, April 16, 2024, June 16, 2023, February 2023, August 14, 2022, September 2012, August 2012, August 2012 Code assist was called on 08/12/2024-patient was found to have unresponsive, stiffness of the bilateral upper and lower extremity, bradycardia, agonal respiration. Code assist was converted to code blue were severe was initiated by bedside RN. Status post CPR. ROSC 20 minutes Patient was intubated on 08/12/2024. Left internal jugular central line was placed on 08/12/2024 Bronchoscopy was done on 08/12/2024-impression- Left lower lobe atelectasis due to mucous plugging. Mucous plugging from L6-L10 and R1-R3 Echo 2D- 04/12/2024 revealed an LVEF of 50% with moderate LVH, RV and left atrium enlargement. The patient also underwent a recent right and left cardiac catheterization on 12/2023 revealing no significant coronary artery disease, elevated left ventricular end-diastolic pressures indicating diastolic heart failure, and pulmonary hypertension deemed to be multifactorial primarily secondary to diastolic heart failure in addition to chronic lung processes for which she was initiated on Sildenafil therapy on 04/2024. Patient had nuclear stress test in -03/19/2023 negative for ischemia, LVEF 59% PMH-heart failure, COPD, asthma, pulmonary hypertension, CAD, NC, hypertension, hyperlipidemia, diabetes mellitus type 2, COPD, asthma, gout, rheumatoid arthritis, anemia PSH- tubal ligation, right foot surgery, tonsillectomy, bilateral total knee replacement, right eye surgery, Allergy- , levofloxacin, ceftriaxone Personal History/ Social History- No history of smoking, alcohol and other drug abuse Patient was seen today for clinical evaluation. Labs and chart reviewed. Overnight patient's BP ranging from -96 142/58-77, pulse 82-98, temperature--97.4 -99.4 I/O , intake 568, output 1876, negative balance 1308 Lab workup ABG -pH 7.54, pCO2 32.3, PO2 67.8, HCO3 27.0 CXR no significant change WBC 7.1> 7.2> 14.1> 11.4> 9.3> 12.1>? 12.9 >12.9> 15.0> 13.9> 15.5> 16.1> 14.4> 18.2> 20.1> 21.3> 19.7> 15.2> 14.7 Hemoglobin 13.1> 11.9> 10.8> 11.0> 10.5> 11.9> 12.5> 12.9> 12.7> 11.9> 9.5> 11.6> 11.5> 11.9> 11.3> 11.7> 12.8 platelet 276>> 302 264> 252> 229> 217> 228> 242> 295> 167> 221> 197> 148> 177> 177> 189> 179> 149> 193 Sodium 137> 142> 147> 146> 148> 148> 143> 148>> 143 >140> 139> 140> 137> 138> 139> 140> 136> 136> 138> 139> 142 Potassium> 3.9> 4.0> 3.7> 3.6> 3.7> 3.7> 3.5> 3.8> 3.5> 3.8> 3.9> 3.2> 3.2> 3.6> 3.7> 3.5> 4.1> 3.7> 3.6> 3.6> 3.6 Serum creatinine 0.92> 0.87> 1.22> 1.21> 1.19> 0.98> 0.78> 0.81>0.88> 0.74> 0.65> 0.74> 0.84> 0.91> 0.78> 0.90> 1.02 BUN 18> 31> 26> 29> 26> 22> 24> 31> 23> 19> 19> 25> 23> 23> 35> 38> 38 Serum> bilirubin 0.5> 0.6>0.5> 0.5 0.8> 1.2> 0.9 > 1.0> 0.8> 0.7> .5 >0.7> 0.9 AST> 20 88> 50> 37> 43> 49> 61> 33> 28> 23> 23> 31 ALT 17> 91> 69> 56> 58> 70> 108> 80> 63> 53> 41>33> 33> 35 Blood culture no growth so far Respiratory Culture no growth Patient on Ertapenem On 08/23/2024 urine culture presumptive Nell albicans Patient had tracheostomy done on 08/27/2024 Patient has Vigil's catheter was changed on 0 08/25/24 CT head on 08/24/2024-1. No acute intracranial hemorrhage. 2. No CT findings of territorial ischemia. Provider spoke to patient's daughter Ms. Nieves Levy,-[phone], discussed patient's current medical condition, plan of care, answered her questions Objective vital signs Vital Sign Date Time Temp Pulse Resp B/P (MAP) Pulse Ox O2 Delivery O2 Flow Rate FiO2 08/28/24 06:30 90 18 118/67 (84) 96 08/28/24 06:00 30 08/28/24 06:00 Mechanical Ventilator+ 08/28/24 04:00 98.0 98.0 Total Intake and Output 08/27/24 08/27/24 08/28/24 15:00 23:00 07:00 Intake Total 304 ml 264 ml Output Total 976 ml 900 ml Balance -672 ml -636 ml medications Current Medications Medications Dose Ordered Sig/Kristen Route Start Time Stop Time Status Last Admin Dose Admin Ondansetron HCl 4 mg Q4HP PRN IV 08/11/24 13:00 Docusate Sodium 100 mg BIDPRN PRN PO 08/11/24 13:00 Acetaminophen 650 mg Q6HP PRN PO 08/11/24 13:00 Albuterol 2.5 mg Q6HWA NEB 08/11/24 18:00 08/28/24 05:55 2.5 MG Ipratropium [place] 0.5 mg Q6HWA NEB 08/11/24 18:00 08/28/24 05:55 0.5 MG Albuterol 2.5 mg Q2HPRN PRN NEB 08/11/24 20:45 08/20/24 10:09 2.5 MG Ipratropium [place] 0.5 mg Q2HPRN PRN NEB 08/11/24 20:45 08/20/24 10:09 0.5 MG Pantoprazole Sodium 40 mg DAILY IV 08/13/24 10:00 08/27/24 10:43 40 MG Sildenafil Citrate 20 mg TID@08,14,20 PO 08/14/24 14:00 08/27/24 21:38 20 MG Hydralazine HCl 10 mg Q6HP PRN IV 08/15/24 15:30 08/24/24 18:01 10 MG Labetalol HCl 20 mg Q2HPRN PRN IV 08/19/24 15:15 08/20/24 06:20 20 MG Clonidine HCl 0.1 mg BID PO 08/19/24 22:00 08/27/24 21:39 0.1 MG Sodium Chloride 10 ml QSHIFT@10,22 IV 08/20/24 22:00 08/27/24 21:39 10 ML Carvedilol 12.5 mg Q12HR PO 08/21/24 22:00 08/27/24 21:38 12.5 MG Furosemide 20 mg BIDD IV 08/23/24 06:00 08/28/24 06:17 20 MG Diagnostic Test (Pha) 1 strip ACHS 08/23/24 17:00 08/28/24 06:18 1 STRIP Insulin Human Regular ACHS SC 08/23/24 17:00 08/28/24 06:19 4 UNITS Dextrose 50 ml UD PRN IV 08/23/24 14:15 Bisacodyl 10 mg QHSP PRN MA 08/24/24 14:15 Potassium Chloride 100 ml @ 50 mls/hr Q2H IV 08/24/24 22:00 08/25/24 01:59 UNV Ertapenem 1 gm/ Sodium Chloride 50 ml @ 100 mls/hr 1400 IV 08/25/24 14:00 08/27/24 14:48 100 MLS/HR Enteral Nutritional Formula 1,000 ml 35ML/HR GT 08/25/24 12:00 Amino Acid Protein 30 ml BID GT 08/25/24 22:00 08/27/24 21:40 30 ML Prednisone 10 mg DAILY NG 08/27/24 10:00 Amlodipine Besylate 10 mg DAILY@1700 PO 08/27/24 17:00 08/27/24 17:49 10 MG Lorazepam 1 mg ONCE PRN IV 08/27/24 10:00 Carbamide Peroxide 5 drop Q12H EACH EAR 08/27/24 18:00 08/28/24 06:17 5 DROP Examination General examination- patient on mechanical ventilation, HEENT- PEERLA, no acute nasal discharge Cardiovascular- S1-S2 audible, rate and rhythm regular, no murmur Respiratory-CTAB Gastrointestinal-nontender, bowel sound+. Nondistended Musculoskeletal-swan neck deformity on bilateral hands+, edematous bilateral hands Lower extremity- No leg edema Skin- no acute rash or purpura laboratory and microbiology Laboratory Tests 08/28/24 04:26 Test 08/28/24 04:26 Range/Units Serum Glucose 207 H 74-106 mg/dL Microbiology Date/Time Source Procedure Growth Status 08/25/24 13:42 Nose MRSA Screen - Final Complete 08/23/24 18:36 Voided Urine Urine Culture - Final Presumptive Nell albicans Complete 08/13/24 04:40 Blood Blood Culture - Final NO GROWTH AFTER 5 DAYS OF INCUBATION. Complete 08/13/24 02:49 Sputum Gram Stain - Final Complete 08/13/24 02:49 Sputum Respiratory Culture - Final Complete Problem List/Assessment/Plan Problem List/Assessment/Plan Assessment and plan Neurology # metabolic encephalopathy/toxic encephalopathy/hypoxic encephalopathy -status post cardiac arrest, status post CPR -patient on mechanical ventilation, -Reported anisocoria with right-sided slightly weaker -CT head very mild cortical atrophy -MRI of the brain- No acute intracranial pathology -continue current management Cardiovascular -Acute diastolic heart failure -[place] set AF patient on DVT prophylaxis -paroxysmal Bradycardia -Echo 2D on 08/13/2024-LVEF 60%, concentric LVH with right ventricle and right atrial enlargement. -CAD -pulmonary hypertension -history of hypertension -hyperlipidemia -continue nebulization -continue Coreg 12.5 mg b.i.d.- hold if bradycardia -patient is due for tracheostomy today Respiratory -acute hypoxic respiratory failure -acute exacerbation of COPD -pulmonary hypertension -failed CPAP trial on 08/18/2024 -Blood culture no growth so far -U[place] [id number] colony-forming units per mL yeast -Respiratory Culture preliminary no growth -continue nebulization -sildenafil 20 mg t.i.d. Gastrointestinal -transaminitis -monitor CMP Genitourinary/renal -suspected UTI -HECTOR likely due to VMN -right kidney cyst in the lower pole -avoid dehydration and nephrotoxic drugs Infectious disease -Septic shock- Improved -acute pneumonia Gram-positive versus Gram-negative -continue ertapenem as prescribed Hemato oncology -anemia of chronic disease -monitor CBC Endocrinology/ metabolic disorder -obesity Musculoskeletal -rheumatoid arthritis -gout -continue current management Skin or elementary -wound care consult in place PICC line ETT Vigil's catheter Goals of care/advance care planning Code status ; discussed with >25 minutes PUD prophylaxis: Pantoprazole DVT prophylaxis: Lovenox Plan discussed with Dr. Topete, nursing staff, daughter Total time spent on patient evaluation, chart review, assessment and plan, total critical time spent including monitoring mechanical ventilation excluding procedure 83 minutes My Orders My Orders Orders - CALI WITT RESIDENT Procedure Category Date Status Time Dietary NOTICE 08/27/24 Transmitted Recommendations 10:50 * Silk Conditioner CONS 08/27/24 Transmitted Consult Chest Portable XY 08/28/24 Resulted 04:00 Chest Portable XY 08/27/24 Resulted 15:33 Carbamide Peroxide PHA 08/27/24 In Process Otic (Ear) (Debrox Ot 18:00 Abg W/ Co-Ox RT 08/28/24 Logged 05:39 Dietary Evaluation Review Recommendations by RD: Protein Supplementation Comments: 1) Increase TF rate from 30 mL/hr to 35 mL/hr. Initiate Pro-Stat @ 30 mL bid. Goal rate (including Pro-Stat) will provide 1208 kcals, 77g Pro, and 1178 mL free H2O (including flushes) per 24 hrs. Goal rate will meet ~ 100% estimated daily energy needs and ~94% estimated daily protein needs 2) Initiate vitamin C @ 500 mg and zinc sulfate @ 220 mg qd for 7 days 3) Advance to cardiac diet when medically feasible, pending MATERIAL CREW SUPERVISOR approval 4) F/u with cardiology and pulmonology 5) Continue to monitor I&O, labs, and skin integrity Expected Outcomes/Goals: 1) appetite and labs to improve 2) diet to advance 3) f/u in 2-3 Interpretation of weight loss: up to 20% in 1 year CALI WITT RESIDENT Aug 28, 2024 06:46
--- NOTE | 2024-08-28 09:20 | DVHPN2 ---
Progress Note Date Seen: Aug 28, 2024 Medical Necessity Reason Pt with a Central, PICC or Fol: Yes The following are medically ne: Central Line, Vigil Catheter Reason for vigil catheter: Strict I&O Objective vital signs Vital Sign Date Time Temp Pulse Resp B/P (MAP) Pulse Ox O2 Delivery O2 Flow Rate FiO2 08/28/24 07:53 98 18 111/71 (84) 94 30 08/28/24 06:00 Mechanical Ventilator+ 08/28/24 04:00 98.0 98.0 Total Intake and Output 08/27/24 08/27/24 08/28/24 15:00 23:00 07:00 Intake Total 304 ml 264 ml Output Total 976 ml 900 ml Balance -672 ml -636 ml medications Current Medications Medications Dose Ordered Sig/Kristen Route Start Time Stop Time Status Last Admin Dose Admin Ondansetron HCl 4 mg Q4HP PRN IV 08/11/24 13:00 Docusate Sodium 100 mg BIDPRN PRN PO 08/11/24 13:00 Acetaminophen 650 mg Q6HP PRN PO 08/11/24 13:00 Albuterol 2.5 mg Q6HWA NEB 08/11/24 18:00 08/28/24 05:55 2.5 MG Ipratropium [place] 0.5 mg Q6HWA NEB 08/11/24 18:00 08/28/24 05:55 0.5 MG Albuterol 2.5 mg Q2HPRN PRN NEB 08/11/24 20:45 08/20/24 10:09 2.5 MG Ipratropium [place] 0.5 mg Q2HPRN PRN NEB 08/11/24 20:45 08/20/24 10:09 0.5 MG Pantoprazole Sodium 40 mg DAILY IV 08/13/24 10:00 08/27/24 10:43 40 MG Sildenafil Citrate 20 mg TID@08,14,20 PO 08/14/24 14:00 08/28/24 07:59 20 MG Hydralazine HCl 10 mg Q6HP PRN IV 08/15/24 15:30 08/24/24 18:01 10 MG Labetalol HCl 20 mg Q2HPRN PRN IV 08/19/24 15:15 08/20/24 06:20 20 MG Clonidine HCl 0.1 mg BID PO 08/19/24 22:00 08/27/24 21:39 0.1 MG Sodium Chloride 10 ml QSHIFT@10,22 IV 08/20/24 22:00 08/27/24 21:39 10 ML Carvedilol 12.5 mg Q12HR PO 08/21/24 22:00 08/27/24 21:38 12.5 MG Furosemide 20 mg BIDD IV 08/23/24 06:00 08/28/24 06:17 20 MG Diagnostic Test (Pha) 1 strip ACHS 08/23/24 17:00 08/28/24 06:18 1 STRIP Insulin Human Regular ACHS SC 08/23/24 17:00 08/28/24 06:19 4 UNITS Dextrose 50 ml UD PRN IV 08/23/24 14:15 Bisacodyl 10 mg QHSP PRN CA 08/24/24 14:15 Potassium Chloride 100 ml @ 50 mls/hr Q2H IV 08/24/24 22:00 08/25/24 01:59 UNV Ertapenem 1 gm/ Sodium Chloride 50 ml @ 100 mls/hr 1400 IV 08/25/24 14:00 08/27/24 14:48 100 MLS/HR Enteral Nutritional Formula 1,000 ml 35ML/HR GT 08/25/24 12:00 Amino Acid Protein 30 ml BID GT 08/25/24 22:00 08/27/24 21:40 30 ML Prednisone 10 mg DAILY NG 08/27/24 10:00 Amlodipine Besylate 10 mg DAILY@1700 PO 08/27/24 17:00 08/27/24 17:49 10 MG Lorazepam 1 mg ONCE PRN IV 08/27/24 10:00 Carbamide Peroxide 5 drop Q12H EACH EAR 08/27/24 18:00 08/28/24 06:17 5 DROP laboratory and microbiology Laboratory Tests 08/28/24 04:26 Test 08/28/24 04:26 Range/Units Serum Glucose 207 H 74-106 mg/dL Microbiology Date/Time Source Procedure Growth Status 08/25/24 13:42 Nose MRSA Screen - Final Complete 08/23/24 18:36 Voided Urine Urine Culture - Final Presumptive Nell albicans Complete 08/13/24 04:40 Blood Blood Culture - Final NO GROWTH AFTER 5 DAYS OF INCUBATION. Complete 08/13/24 02:49 Sputum Gram Stain - Final Complete 08/13/24 02:49 Sputum Respiratory Culture - Final Complete Problem List/Assessment/Plan Problem List/Assessment/Plan INTUBATED AFEBRILE VSS S/P TRACHEOSTOMY NO ACTIVE BLEEDING NO COMPLICATIONS Plan discussed with: Patient Dietary Evaluation Review Recommendations by RD: Protein Supplementation Comments: 1) Increase TF rate from 30 mL/hr to 35 mL/hr. Initiate Pro-Stat @ 30 mL bid. Goal rate (including Pro-Stat) will provide 1208 kcals, 77g Pro, and 1178 mL free H2O (including flushes) per 24 hrs. Goal rate will meet ~ 100% estimated daily energy needs and ~94% estimated daily protein needs 2) Initiate vitamin C @ 500 mg and zinc sulfate @ 220 mg qd for 7 days 3) Advance to cardiac diet when medically feasible, pending [employer]ER approval 4) F/u with cardiology and pulmonology 5) Continue to monitor I&O, labs, and skin integrity Expected Outcomes/Goals: 1) appetite and labs to improve 2) diet to advance 3) f/u in 2-3 Interpretation of weight loss: up to 20% in 1 year SHELBY OLMOS MD Aug 28, 2024 09:20
--- NOTE | 2024-08-28 10:27 | DVH ---
Date: 08/28/2024 09:56 AM Examination: XY KUB ABDOMEN SINGLE VIEW History: DISTENDED ABD Comparison: None TECHNIQUE: Frontal views of the abdomen was obtained. FINDINGS: NG tube in stomach. Diffusely distended loops of small bowel. The lung bases are unremarkable. No acute osseous abnormality identified. IMPRESSION: NG tube in stomach. Diffusely distended loops of small bowel.
--- NOTE | 2024-08-28 10:41 | DVHPN2 ---
Progress Note - Dictate Date Seen: Aug 28, 2024 Medical Necessity Reason Pt with a Central, PICC or Fol: Yes The following are medically ne: Central Line, Vigil Catheter Reason for vigil catheter: Strict I&O Subjective Ms. Recinos is a 73 years old female with a history of hypertension, dyslipidemia, coronary artery disease, heart attack, congestive heart failure, asthma, COPD on home oxygen, gout, anemia, the patient was admitted found her intermediate on 08/11/2024 with a chief company of shortness of breath I have seen and examined the patient, I have talked to her nurse. She is responsive to verbal stimuli, but does not open her eyes or follow any verbal commands. There is strong resistance when I tried to open her eyes. No spontaneous movement in the extremities Status post tracheostomy ABG, 08/12/2024: Respiratory acidosis, hypoxia WBC/HB/PLT/MCV, 08/12/2024: 7.2/11.9/302/85.7, 08/19/2024: 13.9/12.9/167/86.5 CMP, 08/12/2024: Unremarkable HGB A1c, 04/11/2024: 500 TBI/AST/ALT/AP, 08/19/2024: 0.19/61/108/86 TG/HDL/LDL/HDL, 05/2023: 101/2026/186/45 Vitamin B12, 03/2024: 1161 TSH, 03/2024: 1.39 EEG 08/13/2024: Remarkably abnormal Extremity venous study, 08/13/2024: No evidence of right or left femoropopliteal venous thrombosis. Chest x-ray, 08/12/2024: Left central venous catheter overlies the left upper chest and may be not position. Clinical correlation advised. Endotracheal tube in satisfactory position. Left central venous catheter in uncertain position Chest x-ray, 08/15/24: Hazy bilateral opacities are unchanged CXR, 08/26/2024: Pulmonary venous congestion CT head, 08/12/2024: Very mild cortical atrophy otherwise unremarkable study CT head, 08/17/2024: No acute intracranial abnormality CT head, 08/24/2024: 1. No acute intracranial hemorrhage. 2. No CT findings of territorial ischemia CTA chest, 08/13/2024: Grossly enlarged pulmonary arteries underlying pulmonary arterial hypertension is suspected no pulmonary embolus There are bilateral infiltrates in the lung bases MRI brain, 07/17/24: No acute intracranial pathology vital signs Vital Sign Date Time Temp Pulse Resp B/P (MAP) Pulse Ox O2 Delivery O2 Flow Rate FiO2 08/28/24 10:27 92 105/72 08/28/24 10:04 23 96 30 08/28/24 08:00 Mechanical Ventilator+ 08/28/24 04:00 98.0 98.0 Total Intake and Output 08/27/24 08/27/24 08/28/24 15:00 23:00 07:00 Intake Total 304 ml 264 ml Output Total 976 ml 900 ml Balance -672 ml -636 ml medications Current Medications Medications Dose Ordered Sig/Kristen Route Start Time Stop Time Status Last Admin Dose Admin Ondansetron HCl 4 mg Q4HP PRN IV 08/11/24 13:00 Docusate Sodium 100 mg BIDPRN PRN PO 08/11/24 13:00 Acetaminophen 650 mg Q6HP PRN PO 08/11/24 13:00 Albuterol 2.5 mg Q6HWA NEB 08/11/24 18:00 08/28/24 05:55 2.5 MG Ipratropium [place] 0.5 mg Q6HWA NEB 08/11/24 18:00 08/28/24 05:55 0.5 MG Albuterol 2.5 mg Q2HPRN PRN NEB 08/11/24 20:45 08/20/24 10:09 2.5 MG Ipratropium [place] 0.5 mg Q2HPRN PRN NEB 08/11/24 20:45 08/20/24 10:09 0.5 MG Pantoprazole Sodium 40 mg DAILY IV 08/13/24 10:00 08/28/24 10:24 40 MG Sildenafil Citrate 20 mg TID@08,14,20 PO 08/14/24 14:00 08/28/24 07:59 20 MG Hydralazine HCl 10 mg Q6HP PRN IV 08/15/24 15:30 08/24/24 18:01 10 MG Labetalol HCl 20 mg Q2HPRN PRN IV 08/19/24 15:15 08/20/24 06:20 20 MG Clonidine HCl 0.1 mg BID PO 08/19/24 22:00 08/27/24 21:39 0.1 MG Sodium Chloride 10 ml QSHIFT@10,22 IV 08/20/24 22:00 08/28/24 10:25 10 ML Carvedilol 12.5 mg Q12HR PO 08/21/24 22:00 08/28/24 10:27 12.5 MG Furosemide 20 mg BIDD IV 08/23/24 06:00 08/28/24 06:17 20 MG Diagnostic Test (Pha) 1 strip ACHS 08/23/24 17:00 08/28/24 06:18 1 STRIP Insulin Human Regular ACHS SC 08/23/24 17:00 08/28/24 06:19 4 UNITS Dextrose 50 ml UD PRN IV 08/23/24 14:15 Bisacodyl 10 mg QHSP PRN [place] 08/24/24 14:15 Potassium Chloride 100 ml @ 50 mls/hr Q2H IV 08/24/24 22:00 08/25/24 01:59 UNV Ertapenem 1 gm/ Sodium Chloride 50 ml @ 100 mls/hr 1400 IV 08/25/24 14:00 08/27/24 14:48 100 MLS/HR Enteral Nutritional Formula 1,000 ml 35ML/HR GT 08/25/24 12:00 Amino Acid Protein 30 ml BID GT 08/25/24 22:00 08/28/24 10:29 30 ML Prednisone 10 mg DAILY NG 08/27/24 10:00 08/28/24 10:25 10 MG Amlodipine Besylate 10 mg DAILY@1700 PO 08/27/24 17:00 08/27/24 17:49 10 MG Lorazepam 1 mg ONCE PRN IV 08/27/24 10:00 Carbamide Peroxide 5 drop Q12H EACH EAR 08/27/24 18:00 08/28/24 06:17 5 DROP objective The patient is well-nourished and well-developed with no distress. MENTAL STATUS: Subjective, CRANIAL NERVES: pupils are equal round and reactive to light briskly, normal external eye movement, normal sensation and motor examination in the lateral trigeminal nerve distribution, no facial weakness SENSATION: Responses to pain stimuli. MOTOR: Normal tone in the upper and lower extremity. Normal muscle bulk. No fasciculations. No spontaneous extremity movement REFLEXES: Deep tendon reflexes are symmetrical. No pathological reflexes. CEREBELLAR/COORDINATION: Deferred GAIT/STATION: deferred. laboratory and microbiology Laboratory Tests 08/28/24 04:26 Test 08/28/24 04:26 Range/Units Serum Glucose 207 H 74-106 mg/dL Problem List Coma, resolved Hypoxic encephalopathy Metabolic encephalopathy Toxic encephalopathy Cardiopulmonary arrest Respiratory failure Hypoxia Status post CPR Sepsis Pneumonia Acidosis Seizure-like activity to rule out seizure attack Reported anisocoria with right-sided slightly weaker on 08/14/2024, evident physical examination on 08/19/2024 Assessment/Plan Monitoring Supportive treatment ICU care Follow-up labs MRI head Respiratory support Stabilize vitals Antibiotics Oxygen DVT prophylaxis GI prophylaxis Up to chair Physical therapy More recommendation per clinical course This medical document was created using an electronic medical record system with [employer] dictation system. Although this document has been carefully reviewed, there may still be some phonetic and typographical errors. These areas are purely typographical due to imperfections of the software programs, and do not reflect any compromise in the patient's medical care. Prognosis poor Dietary Evaluation Review Recommendations by RD: Protein Supplementation Comments: 1) Increase TF rate from 30 mL/hr to 35 mL/hr. Initiate Pro-Stat @ 30 mL bid. Goal rate (including Pro-Stat) will provide 1208 kcals, 77g Pro, and 1178 mL free H2O (including flushes) per 24 hrs. Goal rate will meet ~ 100% estimated daily energy needs and ~94% estimated daily protein needs 2) Initiate vitamin C @ 500 mg and zinc sulfate @ 220 mg qd for 7 days 3) Advance to cardiac diet when medically feasible, pending [employer] approval 4) F/u with cardiology and pulmonology 5) Continue to monitor I&O, labs, and skin integrity Expected Outcomes/Goals: 1) appetite and labs to improve 2) diet to advance 3) f/u in 2-3 Interpretation of weight loss: up to 20% in 1 year Plan discussed with: Other PATRIZIA SHERWOOD MD Aug 28, 2024 10:41
[2024-08-28] MEDS: LORazepam 2MG/ML-1ML VIAL IV ONE (10:45)
--- NOTE | 2024-08-28 11:58 | DVHDSRES ---
Discharge Summary Date of Admission Resident Creating Document: CALI WITT RESIDENT Aug 11, 2024 at 12:58 Date of Discharge: Aug 28, 2024 Admitting Diagnosis Acute hypoxic respiratory failure Labs/Diagnostic Data: Laboratory Results Test 08/28/24 06:02 08/28/24 05:54 08/28/24 04:26 08/27/24 04:30 POC Glucose 218 mg/dl (70-106) Blood Gas Specimen Type Arterial Blood Gas Sample Site Right radial Blood Gas Patient Temperature 37.0 Arterial Blood Date Drawn [id number] Arterial Blood pH 7.540 (7.350-7.450) Arterial Blood Partial Pressure CO2 32.3 mmHg (32.0-45.0) Arterial Blood Partial Pressure O2 67.8 mmHg (83.0-108.0) Arterial Blood HCO3 27.0 mmol/L (21.0-28.0) Arterial Blood Oxygen Saturation 92.9 % (94.0-98.0) Arterial Blood Base Excess 4.8 mmol/L (-2.0-3.0) Arterial Blood Oxyhemoglobin 91.9 % (94.0-98.0) Arterial Blood Carboxyhemoglobin 0.6 % (0.5-1.5) Arterial Blood Methemoglobin 0.5 % (0.0-1.5) Harpreet Test Yes Blood Gas Total Hemoglobin 13.50 g/dL (12.0-16.0) Blood Gas Set Respiration Rate 18.0 Blood Gas Modality Vent - ac FiO2 % 30.0 Blood Gas Tidal Volume 400.0 Blood Gas PEEP or CPAP 5.0 White Blood Count 14.7 10^3/uL (4.4-10.8) Red Blood Count 4.61 10^6/uL (4.0-5.20) Hemoglobin 12.8 g/dL (12.2-16.2) Hematocrit 38.9 % (36.0-46.0) Mean Corpuscular Volume 84.3 fL (80.0-100.0) Mean Corpuscular Hemoglobin 27.8 pg (28.0-32.0) Mean Corpuscular Hemoglobin Concent 33.0 g/dL (32.0-36.0) Red Cell Distribution Width 15.8 % (11.8-14.3) Platelet Count 193 10^3/uL (140-450) Mean Platelet Volume 10.5 fL (6.9-10.8) Neutrophils (%) (Auto) 92.5 % (37.0-80.0) Lymphocytes (%) (Auto) 3.0 % (10.0-50.0) Monocytes (%) (Auto) 4.3 % (0.0-12.0) Eosinophils (%) (Auto) 0.0 % (0.0-7.0) Basophils (%) (Auto) 0.2 % (0.0-2.0) Neutrophils # (Auto) 13.6 10 ^3/uL (1.6-8.6) Lymphocytes # (Auto) 0.4 10 ^3/uL (0.4-5.4) Monocytes # (Auto) 0.6 10 ^3/uL (0-1.3) Eosinophils # (Auto) 0 10 ^3/uL (0-0.8) Basophils # (Auto) 0 10 ^3/uL (0-0.2) Nucleated Red Blood Cells 0.0 % Sodium Level 142 mmol/L (136-145) Potassium Level 3.6 mmol/L (3.5-5.1) Chloride Level 102 mmol/L (98-107) Carbon Dioxide Level 31 mmol/L (20-31) Anion Gap 9 (5-15) Blood Urea Nitrogen 38 mg/dL (9-23) Creatinine 1.02 mg/dL (0.550-1.02) Glomerular Filtration Rate Calc 59 mL/min (>90) BUN/Creatinine Ratio 37.3 (10.0-20.0) Serum Glucose 207 mg/dL (74-106) Calcium Level 9.8 mg/dL (8.7-10.4) Total Bilirubin 0.9 mg/dL (0.2-1.0) Aspartate Amino Transferase (AST) 31 U/L (13-40) Alanine Aminotransferase (ALT) 35 U/L (7-40) Alkaline Phosphatase 109 U/L (46-116) Total Protein 6.6 g/dL (5.7-8.2) Albumin 4.2 g/dL (3.2-4.8) Prothrombin Time 11.1 sec (9.3-11.8) Prothrombin Time INR 1.05 (0.9-1.15) Test 08/26/24 04:30 08/25/24 08:17 08/24/24 05:14 08/23/24 18:36 Magnesium Level 2.2 mg/dL (1.6-2.6) Differential Total Cells Counted 100.0 (100) Neutrophils % (Manual) 93 (37.0-80.0) Band Neutrophils % (Manual) 0 Lymphocytes % (Manual) 4 (10.0-50.0) Monocytes % (Manual) 3 (0-12) Eosinophils % (Manual) 0 (0-7) Basophils % (Manual) 0 (0.0-2.0) Metamyelocytes % (manual) 0 Myelocytes % (Manual) 0 Promyelocytes % (Manual) 0 Blast Cells % (Manual) 0 Reactive Lymphocytes 0 Platelet Estimate Adequate Activated Partial Thromboplast Time 23.7 SEC (24.5-34.5) B-Type Natriuretic Peptide 301.08 pg/mL (0-100) Random Vancomycin Level 18.1 ug/mL (5-10) Urine Color Colorless (Yellow) Urine Clarity Turbid (Clear) Urine pH 6.5 (5.0-9.0) Urine Specific Rumely 1.006 (1.001-1.035) Urine Protein Negative (Negative) Urine Ketones Negative (Negative) Urine Blood 2+ /uL (Negative) Urine Nitrite Negative (Negative) Urine Bilirubin Negative (Negative) Urine Urobilinogen Normal mg/dL (Negative) Urine Leukocyte Esterase 3+ /uL (Negative) Urine RBC 110 /hpf (0 - 4) Urine WBC Clumps Present /hpf (None Seen) Urine Microscopic WBC 80 /HPF (0-5) Urine Squamous Epithelial Cells None seen /hpf (<5) Urine Bacteria Few /hpf (None Seen) Urine Mucus Few (None Seen) Urine Yeast (Budding) Few /hpf (None Seen) Urine Glucose 2+ mg/dL (Normal) Test 08/23/24 05:35 08/22/24 16:04 08/16/24 06:32 08/14/24 04:30 Creatine Kinase 22 U/L (34-145) Vancomycin Level Trough 25.4 ug/mL (5-10) Blood Gas Comments Urine Uric Acid Crystals Many /hpf (None Seen) Urine Hyaline Casts Few /lpf (0 - 2) Test 08/12/24 21:25 08/12/24 15:55 08/12/24 15:28 08/12/24 12:20 Blood Gas Spontaneous Rate 20 Blood Gas Spontaneous Tidal Volume 400 Bl Gas Inspiratory/Expiratory Ratio 1:2.4 Specimen Drawn By Rocael damon rt D-Dimer, Quantitative 22.61 mg/L FEU (0.0-0.49) Blood Gas Inspiratory Pressure 33.0 Blood Gas Liter Flow 15.00 Blood Gas Critical Value Read Back Yes Blood Gas Notified Whom Blood Gas Notified Time [id number] Blood Gas Notified By Monica oxygen therapy technician Test 08/11/24 11:40 Troponin I High Sensitivity 23 ng/L (</=34) Other Laboratory Tests 08/28/24 04:26 Brief Hx & Hospital Course: Patient is 73 years old female with past medical history of asthma, COPD, on home oxygen NCO2 2L/mnt, CAD-MN, CHF, pulmonary hypertension, hypertension, hyperlipidemia, rheumatoid arthritis, gout, anemia came to the hospital with shortness of breaths. Information gathered from reviewing the chart and talking to the family. Having chest pain and shortness of breaths for couple of days before she came into the hospital. Patient was admitted the hospital 1 month before with the abdominal pain, pneumonia. Following discharge patient was sent to [facility] for rehabilitation. Significant initial lab workup-troponin I with a normal limit, BNP elevated 273. CXR-Patchy bibasilar airspace opacities. Cardiomegaly. CT head-08/12/2024 -Very mild cortical atrophy otherwise unremarkable study. CT angio on 08/13/2024- grossly enlarged the main pulmonary artery measures 5.3 cm in caliber, right pulmonary artery measures 3.13 cm in caliber in the left pulmonary artery measures 2.67 cm in caliber. Heart is enlarged. There is a posterior consolidated right lower lobe evidence for bilateral interstitial infiltrates and possibly edema. No evidence for pulmonary embolus the ascending aorta measures 3.77 cm. Also bilateral small consolidates in the posterior right and left lower lobes. Grossly enlarged pulmonary arteries underlying pulmonary arterial hypertension is suspected no pulmonary embolus. There are bilateral infiltrates in the lung bases. One 08/13/2024 Doppler study of the lower extremity negative for DVT. ECHO 2D on 08/14/24 revealed-LVEF 60%, concentric left ventricular hypertrophy with right ventricle and right atrial enlargement.Bronchoscopy was done on 08/12/2024-impression- Left lower lobe atelectasis due to mucous plugging. Mucous plugging from L6-L10 and R1-R3 On 08/14/2024- MRI of the brain-no acute abnormality noted. On 08/18/2023 CT head- No acute intracranial abnormality. Code assist was called on 08/12/2024-patient was found to have unresponsive, stiffness of the bilateral upper and lower extremity, bradycardia, agonal respiration. Code assist was converted to code blue were severe was initiated by bedside RN. Status post CPR. ROSC 20 minutes Patient was intubated on 08/12/2024. CT head on 08/24/2024-1. No acute intracranial hemorrhage. 2. No CT findings of territorial ischemia. During hospital course patient had leukocytosis, no significant source of infection was found, patient was on a ertapenem IV antibiotic. No significant growth on blood//urine/respiratory culture. Several attempts were made to put patient on CPAP trial but even after shutting off all the sedatives patient was only eye opening, no communication or not falling, for subsequently 6-7 days. Patient was in vegetative state. Following discussion with the family tracheostomy was done on 08/27/2024. Currently not on any sedatives or vasopressor. Patient had tracheostomy done on 08/27/2024 PEG tube placement scheduled for 08/29/2024 Echo 2D- 04/12/2024 revealed an LVEF of 50% with moderate LVH, RV and left atrium enlargement. The patient also underwent a recent right and left cardiac catheterization on 12/2023 revealing no significant coronary artery disease, elevated left ventricular end-diastolic pressures indicating diastolic heart failure, and pulmonary hypertension deemed to be multifactorial primarily secondary to diastolic heart failure in addition to chronic lung processes for which she was initiated on Sildenafil therapy on 04/2024. Patient had nuclear stress test in -03/19/2023 negative for ischemia, LVEF 59% Blood culture no growth so far Respiratory Culture no growth Patient on Ertapenem On 08/23/2024 urine culture presumptive Nell albicans Patient has Martins's catheter was changed on 0 08/25/24 Patient is waiting to be transferred to LTAC after PEG tube placement tomorrow on 08/29/24. Social service consult in place. As per social service prosthesis going on. On 08/28/2024 MRI of the brain ordered by Dr. Mayorga- 1. No evidence of acute infarction, intracranial hemorrhage, mass effect or hydrocephalus. Mild changes of chronic microvascular ischemic disease. 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 Right mastoid effusion. Total time spent for chart review, clinical evaluation including monitoring mechanical ventilation, discharge 60 minutes. Operations or Procedures [address] [address] Ph: [phone] DIAGNOSTIC IMAGING Diagnostic Imaging Report : [id number] Signed PATIENT: JOSE MCCULLOUGH ACCT: [id number] UNIT: [id number] : 1950 LOC: ER ROOM / BED: / AGE / SEX: 73 / F ADM STATUS: REG ER SERVICE 9 ORDERING PHYSICIAN: SOUMYA SPRINGER MD PROCEDURE(s): CXRP - CHEST PORTABLE REASON: sob ORDER NUMBER(s): [id number], ACCESSION NUMBER(s): [id number] XY CHEST PORTABLE, HISTORY: sob COMPARISON: XY CHEST PORTABLE on DOS: 07/03/24, XY CHEST XRAY 1 VIEW on DOS: 04/11/24, XY CHEST PORTABLE on DOS: 06/16/23 XY CHEST PORTABLE on DOS: 07/03/24, XY CHEST XRAY 1 VIEW on DOS: 04/11/24, XY CHEST PORTABLE on DOS: 06/16/23 TECHNICAL DATA: 1 view of the chest was obtained. FINDINGS: Lines and tubes: None Cardiomediastinal silhouette: enlarged Pulmonary vasculature: prominent Lung expansion: normal Lung airspace: Patchy bibasilar opacities. Lung interstitium: normal Pleura: normal Pneumothorax: no Bones: Unremarkable Other: no IMPRESSION: Patchy bibasilar airspace opacities. Cardiomegaly. ATED BY: JULIO MAYORGA MD DICTATED DATE/TIME: 08/11/24902 SIGNED BY: JULIO MAYORGA MD SIGNED DATE/TIME: 08/11/24902 CC: [address] [address] Ph: [phone] DIAGNOSTIC IMAGING Diagnostic Imaging Report : [id number] Signed PATIENT: JOSE MCCULLOUGH ACCT: [id number] UNIT: [id number] : 1950 LOC: ICU CENTRL ROOM / BED: [facility] / A AGE / SEX: 73 / F ADM STATUS: ADM IN SERVICE 08 ORDERING PHYSICIAN: EDITH ANSARI MD PROCEDURE(s): HWOCT - HEAD WITHOUT CONTRAST REASON: s/p CPR ORDER NUMBER(s): [id number], ACCESSION NUMBER(s): [id number] CT HEAD WITHOUT CONTRAST INDICATION: s/p CPR EXAM DATE: 08/12/2024 11:10 PM COMPARISON: None RADIATION DOSE: CTDIvol: 55.97 mGy, DLP: 1650.47 mGy*cm PROCEDURE: CT scans of the head were obtained from the vertex to the skull base. Sagittal and coronal reconstructions were provided. All CT scans at this medical facility are performed using dose modulation techniques as appropriate to a performed exam including the following: Automated exposure control was utilized; adjustment of the MA and/or KV according to patient size; and use of iterative reconstruction technique. FINDINGS: Dense calcifications in the vertebral arteries. There is a minimal cortical atrophy with no signs of stroke or hemorrhage. Patient has nasogastric tube in place. There is soft tissue in the right external auditory canal clinical correlation is advised. ML are unremarkable internal auditory canals unremarkable. Mastoid air cells are well aerated. Paranasal sinuses unremarkable orbits are normal. Calvarium is intact. There are no midline shifts or focal mass effect hippocampal structures are symmetric and midline structures are unremarkable given the level of atrophy. IMPRESSION: 1. Very mild cortical atrophy otherwise unremarkable study . ATED BY: ANIL SANDERS MD DICTATED DATE/TIME: 08/12/242344 SIGNED BY: ANIL SANDERS MD SIGNED DATE/TIME: 08/12/242344 CC: [place] [address] Ph: [phone] DIAGNOSTIC IMAGING Diagnostic Imaging Report : [id number] Signed PATIENT: JOSE MCCULLOUGH ACCT: [id number] UNIT: [id number] : 1950 LOC: ICU CENTRL ROOM / BED: [facility] / A AGE / SEX: 73 / F ADM STATUS: ADM IN SERVICE 39 ORDERING PHYSICIAN: EDITH ANSARI MD PROCEDURE(s): CTACH - CT ANGIO CHEST CONTRAST REASON: rule out PE ORDER NUMBER(s): [id number], ACCESSION NUMBER(s): [id number] INDICATION: rule out PE COMPARISON: CT CT ANGIO CHEST CONTRAST on DOS: 07/04/24, CT CT ANGIO CHEST CONTRAST on DOS: 06/11/23 TECHNIQUE: Multidetector CTA of the chest was performed of the chest with 100 cc of intravenous contrast. PULMONARY ANGIOGRAPHY PROTOCOL was utilized using a bolus-tracking technique centered on the main pulmonary artery. Axial, coronal and sagittal multiplanar and MIP reformats were performed. Radiation Dose : 1. Chest: CTDI volume is 55.97 mGy. Dose-length product is 1650.47 mGy*cm The dose indicators for CT are the volume Computed Tomography (CT) Dose Index (CTDIvol) and the Dose Length Product (DLP), and are measured in units of mGy and mGy-cm, respectively. These indicators are not patient dose, but values generated from the CT scanner acquisition factors. The report includes radiation exposure data for exposures received during this examination. Study was done after administration 100 cc of omnipaque 350 none wasted Findings:. Patient has a endotracheal tube in the trachea pulmonary arteries are grossly enlarged the main pulmonary artery measures 5.3 cm in caliber, right pulmonary artery measures 3.13 cm in caliber in the left pulmonary artery measures 2.67 cm in caliber. Heart is enlarged. There is a posterior consolidated right lower lobe evidence for bilateral interstitial infiltrates and possibly edema. No evidence for pulmonary embolus the ascending aorta measures 3.77 cm. Also bilateral small consolidates in the posterior right and left lower lobes. IMPRESSION: Grossly enlarged pulmonary arteries underlying pulmonary arterial hypertension is suspected no pulmonary embolusThere are bilateral infiltrates in the lung bases ATED BY: ANIL SANDERS MD DICTATED DATE/TIME: 08/13/24 0002 SIGNED BY: ANIL SANDERS MD SIGNED DATE/TIME: 08/13/24 0002 CC: [place] [address] Ph: [phone] DIAGNOSTIC IMAGING Diagnostic Imaging Report : [id number] Signed PATIENT: JOSE MCCULLOUGH ACCT: [id number] UNIT: [id number] : 1950 LOC: [facility] ROOM / BED: [facility] / A AGE / SEX: 73 / F ADM STATUS: ADM IN SERVICE 1207 ORDERING PHYSICIAN: EDITH ANSARI MD PROCEDURE(s): CXR1 - CHEST XRAY 1 VIEW REASON: s/p intubation & central line ORDER NUMBER(s): [id number], ACCESSION NUMBER(s): [id number] CHEST RADIOGRAPH Indication: s/p intubation central line Technique: Single frontal view of the chest was obtained COMPARISON: XY CHEST PORTABLE on DOS: 08/11/24, XY CHEST PORTABLE on DOS: 07/03/24, XY CHEST XRAY 1 VIEW on DOS: 04/11/24, XY CHEST PORTABLE on DOS: 06/16/23, XY CHEST XRAY 1 VIEW on DOS: 06/13/23 FINDINGS: Lines and Tubes: Endotracheal tube in satisfactory position. Left central venous catheter in uncertain position. Lungs: Multifocal airspace disease. Pleura: No effusion. No pneumothorax. Cardiomediastinal contours: Cardiomegaly. Bones: Unremarkable IMPRESSION: Left central venous catheter overlies the left upper chest and may be not position. Clinical correlation advised. ATED BY: RIKY MADRID MD DICTATED DATE/TIME: 08/12/24 123 SIGNED BY: RIKY MADRID MD SIGNED DATE/TIME: 08/12/24 1235 CC: [place] [address] Ph: [phone] DIAGNOSTIC IMAGING Diagnostic Imaging Report : [id number] Signed PATIENT: JOSE MCCULLOUGH ACCT: [id number] UNIT: [id number] : 1950 LOC: [facility] CENTR ROOM / BED: [facility] / A AGE / SEX: 73 / F ADM STATUS: ADM IN SERVICE 0000 ORDERING PHYSICIAN: XIOMARA MARKS MD PROCEDURE(s): BLDVT - BiLat Lower DVT REASON: elevated d-dimer r/o dvt ORDER NUMBER(s): [id number], ACCESSION NUMBER(s): [id number] Bilateral lower extremity venous duplex Clinical History: elevated d-dimer r/o dvt Comparison: None Technique: Duplex Doppler evaluation of the deep venous systems of both lower extremities from the common femoral veins to the popliteal veins including color Doppler and spectral/pulsed waveform analysis was performed. Findings: RIGHT SIDE: The common femoral vein demonstrates appropriate compressibility and waveform variability. There is compressibility/patency of the great saphenous vein at the proximal thigh. The femoral vein demonstrates appropriate compressibility and waveform variability. The deep femoral vein demonstrates appropriate compressibility and waveform variability. The popliteal vein demonstrates appropriate compressibility and waveform variability. There is normal compressibility at the tibioperoneal trunk. LEFT SIDE: The common femoral vein demonstrates appropriate compressibility and waveform variability. There is compressibility/patency of the great saphenous vein at the proximal thigh. The femoral vein demonstrates appropriate compressibility and waveform variability. The deep femoral vein demonstrates appropriate compressibility and waveform variability. The popliteal vein demonstrates appropriate compressibility and waveform variability. There is normal compressibility at the tibioperoneal trunk. Impression: No evidence of right or left femoropopliteal venous thrombosis. ATED BY: LASHA PIZANO MD DICTATED DATE/TIME: 08/13/2458 SIGNED BY: LASHA PIZANO MD SIGNED DATE/TIME: 08/13/2458 CC: [place] [address] Ph: [phone] DIAGNOSTIC IMAGING Diagnostic Imaging Report : [id number] Signed PATIENT: JOSE MCCULLOUGH ACCT: [id number] UNIT: [id number] : 1950 LOC: ICU CENTR ROOM / BED: [facility] / A AGE / SEX: 73 / F ADM STATUS: ADM IN SERVICE 0600 ORDERING PHYSICIAN: ROSHAN HERNANDEZ MD PROCEDURE(s): CXRP - CHEST PORTABLE REASON: RESP FAILURE ORDER NUMBER(s): [id number], ACCESSION NUMBER(s): [id number] CHEST RADIOGRAPH Indication: RESP FAILURE Technique: Single frontal view of the chest was obtained COMPARISON: XY CHEST PORTABLE on DOS: 08/13/24, XY CHEST XRAY 1 VIEW on DOS: 08/12/24, XY CHEST PORTABLE on DOS: 08/11/24, XY CHEST PORTABLE on DOS: 07/03/24, XY CHEST XRAY 1 VIEW on DOS: 04/11/24 FINDINGS: Lines and Tubes: Endotracheal tube in satisfactory position. Left central venous catheter in satisfactory position and left-sided SVC. Lungs: Multifocal airspace disease. Pleura: No effusion. No pneumothorax. Cardiomediastinal contours: Unremarkable Bones: Unremarkable IMPRESSION: Lines and tubes in satisfactory position. No significant interval change. ATED BY: RIKY MADRID MD DICTATED DATE/TIME: 08/14/24505 SIGNED BY: RIKY MADRID MD SIGNED DATE/TIME: 08/14/24505 CC: [place] [address] Ph: [phone] DIAGNOSTIC IMAGING Diagnostic Imaging Report : [id number] Signed PATIENT: JOSE MCCULLOUGH ACCT: [id number] UNIT: [id number] : 1950 LOC: ICU CENTRL ROOM / BED: [address] [place] [address] AGE / SEX: 73 / F ADM STATUS: ADM IN SERVICE 1213 ORDERING PHYSICIAN: PATRIZIA MAYORGA MD PROCEDURE(s): MBHL - BRAIN HEAD WO CONTRAST REASON: s/p cardiac arrest ORDER NUMBER(s): [id number], ACCESSION NUMBER(s): [id number] MR brain HISTORY: s/p cardiac arrest Comparison: CT brain 08/12/2024 TECHNIQUE: MR was performed with a surface coil at 1.5 T magnet. Sagittal, axial and coronal T1 and T2-weighted images were obtained. FINDINGS: No areas of restricted diffusion on diffusion-weighted images. No areas of T2 star signal hypointensity on gradient echo images No areas of T2 signal hyperintensity on FLAIR imaging sequences No hydrocephalus. No midline shift. No extra-axial fluid collections Orbits paranasal sinuses sella and cerebellopontine angles are unremarkable in appearance IMPRESSION: 1. No acute intracranial pathology ATED BY: SAGAR CHEN MD DICTATED DATE/TIME: 08/14/24 1556 SIGNED BY: SAGAR CHEN MD SIGNED DATE/TIME: 08/14/24 155 CC: [address] [address] Ph: [phone] DIAGNOSTIC IMAGING Diagnostic Imaging Report : [id number] Signed PATIENT: JOSE MCCULLOUGH ACCT: [id number] UNIT: [id number] : 1950 LOC: ICU CENTRL ROOM / BED: [facility] / A AGE / SEX: 73 / F ADM STATUS: ADM IN SERVICE 0400 ORDERING PHYSICIAN: CALI WITT PROCEDURE(s): CXRP - CHEST PORTABLE REASON: PNA/CHF ORDER NUMBER(s): [id number], ACCESSION NUMBER(s): [id number] CHEST RADIOGRAPH Indication: PNA/CHF Technique: Single frontal view of the chest was obtained COMPARISON: XY CHEST PORTABLE on DOS: 08/15/24, XY CHEST PORTABLE on DOS: 08/14/24, XY CHEST PORTABLE on DOS: 08/13/24, XY CHEST XRAY 1 VIEW on DOS: 08/12/24, XY CHEST PORTABLE on DOS: 08/11/24 FINDINGS: Lines and Tubes: Lines and tubes are unchanged. Lungs: Multifocal bilateral pulmonary opacities are stable in appearance. Pleura: No effusion. No pneumothorax. Cardiomediastinal contours: Unremarkable Bones: Unremarkable IMPRESSION: 1. No evidence of significant interval change. Stable appearing multifocal bilateral pulmonary opacities. ATED BY: GILBERT KRAUS MD DICTATED DATE/TIME: 08/16/24615 SIGNED BY: GILBERT KRAUS MD SIGNED DATE/TIME: 08/16/24615 CC: [address] [address] Ph: [phone] DIAGNOSTIC IMAGING Diagnostic Imaging Report : [id number] Signed PATIENT: JOSE MCCULLOUGH ACCT: [id number] UNIT: [id number] : 1950 LOC: ICU CENTRL ROOM / BED: [facility] / A AGE / SEX: 73 / F ADM STATUS: ADM IN SERVICE 1217 ORDERING PHYSICIAN: EVANGELIST BOUDREAUX MD PROCEDURE(s): HWOCT - HEAD WITHOUT CONTRAST REASON: MENTAL STATUS ORDER NUMBER(s): [id number], ACCESSION NUMBER(s): [id number] CT HEAD WITHOUT CONTRAST INDICATION: MENTAL STATUS EXAM DATE: 08/17/2024 02:31 PM COMPARISON: CT HEAD WITHOUT CONTRAST on DOS: 08/12/24 RADIATION DOSE: CTDIvol: 58.21 mGy, DLP: 1030.68 mGy*cm PROCEDURE: CT scans of the head were obtained from the vertex to the skull base. Sagittal and coronal reconstructions were provided. All CT scans at this medical facility are performed using dose modulation techniques as appropriate to a performed exam including the following: Automated exposure control was utilized; adjustment of the MA and/or KV according to patient size; and use of iterative reconstruction technique. FINDINGS: There is sulcal and ventricular prominence. The brainshows normal morphology and wolf-white matter differentiation, without intracranial hemorrhage, extra-axial fluid collection, mass effect or acute large vessel infarct. The ventricles are normal in size. The basal cisterns are patent. The skull and visible facial bones are intact. The paranasal sinuses, mastoid air cells and middle ear cavities are well-aerated. The soft tissues of the scalp are unremarkable. IMPRESSION: No acute intracranial abnormality. ATED BY: JULIO MAYORGA MD DICTATED DATE/TIME: 08/17/241457 SIGNED BY: JULIO MAYORGA MD SIGNED DATE/TIME: 08/17/241457 CC: [place] [address] Ph: [phone] DIAGNOSTIC IMAGING Diagnostic Imaging Report : [id number] Signed PATIENT: JOSE MCCULLOUGH ACCT: [id number] UNIT: [id number] : 1950 LOC: ICU CENTR ROOM / BED: 0261 / A AGE / SEX: 73 / F ADM STATUS: ADM IN SERVICE 1903 ORDERING PHYSICIAN: ROSHAN HERNANDEZ MD PROCEDURE(s): USGUIVASAC - US Guided Vascular Access REASON: PICC LINE PLACEMENT ORDER NUMBER(s): [id number], ACCESSION NUMBER(s): [id number] Exam: US US GUIDED VASCULAR ACCESS Date: 08/21/2024 10:16 AM Clinical History: picc line placement Comparison: None Findings: Targeted sonographic evaluation of the right basilic vein was obtained utilizing grayscale and color Doppler imaging. IMPRESSION: Sonographic assistance for central line placement. Please refer to procedural report for detailed findings. ATED BY: FAUSTO ZAVALA MD DICTATED DATE/TIME: 08/22/24554 SIGNED BY: FAUSTO ZAVALA MD SIGNED DATE/TIME: 08/22/24554 CC: [place] [address] Ph: [phone] DIAGNOSTIC IMAGING Diagnostic Imaging Report : [id number] Signed PATIENT: JOSE MCCULLOUGH ACCT: [id number] UNIT: [id number] : 1950 LOC: ICU [facility] ROOM / BED: [address] [place] [address] AGE / SEX: 73 / F ADM STATUS: ADM IN SERVICE 06 ORDERING PHYSICIAN: SAM MA MD PROCEDURE(s): CXRP - CHEST PORTABLE REASON: fu ORDER NUMBER(s): [id number], ACCESSION NUMBER(s): [id number] CHEST RADIOGRAPH Indication: fu Technique: Single frontal view of the chest was obtained COMPARISON: XY CHEST PORTABLE on DOS: 08/23/24, XY CHEST PORTABLE on DOS: 08/22/24, XY CHEST PORTABLE on DOS: 08/21/24, XY CHEST PORTABLE on DOS: 08/20/24, XY CHEST PORTABLE on DOS: 08/20/24 FINDINGS: Lines and Tubes: Unchanged Lungs: Clear Pleura: No effusion. No pneumothorax. Cardiomediastinal contours: Unremarkable Bones: Unremarkable IMPRESSION: 1. No acute disease. 2. Lines and tubes unchanged. ATED BY: GILBERT KRAUS MD DICTATED DATE/TIME: 08/24/24214 SIGNED BY: GILBERT KRAUS MD SIGNED DATE/TIME: 08/24/24214 CC: [address] [id number] Ph: [phone] DIAGNOSTIC IMAGING Diagnostic Imaging Report : [id number] Signed PATIENT: JOSE MCCULLOUGH ACCT: [id number] UNIT: [id number] : 1950 LOC: ICU [facility] ROOM / BED: [facility] / A AGE / SEX: 73 / F ADM STATUS: ADM IN SERVICE 1347 ORDERING PHYSICIAN: SAM MA MD PROCEDURE(s): HWOCT - HEAD WITHOUT CONTRAST REASON: OFF SEDATION X5 DAYS. NON-RESPONSIVE TO COMMANDS ORDER NUMBER(s): [id number], ACCESSION NUMBER(s): [id number] EXAM: CT HEAD WITHOUT CONTRAST INDICATION: OFF SEDATION X5 DAYS. NON-RESPONSIVE TO COMMANDS TECHNIQUE: CT of the head without intravenous contrast. Radiation Dose Information: CT Dose: CTDI volume is 53.0 mGy. Dose-length product is 938.66 mGy*cm The dose indicators for CT are the volume Computed Tomography (CT) Dose Index (CTDIvol) and the Dose Length Product (DLP), and are measured in units of mGy and mGy-cm, respectively. These indicators are not patient dose, but values generated from the CT scanner acquisition factors. The report includes radiation exposure data for exposures received during this examination. COMPARISON: CT HEAD WITHOUT CONTRAST on DOS: 08/17/24, CT HEAD WITHOUT CONTRAST on DOS: 08/12/24 FINDINGS: There is no evidence of acute intracranial hemorrhage, extra-axial collection, mass effect, midline shift, herniation or hydrocephalus. The ventricles, sulci and cisterns are age appropriate. The wolf-white differentiation is intact. Patchy periventricular and subcortical white matter hypoattenuation is nonspecific but may be related to small vessel ischemic disease. The visualized paranasal sinuses and mastoid air cells are clear. The surrounding soft tissues and osseous structures are unremarkable. IMPRESSION: 1. No acute intracranial hemorrhage. 2. No CT findings of territorial ischemia. HS:Y ATED BY: PETRUZZO,SAGAR T Jr. DO DICTATED DATE/TIME: 08/24/241609 SIGNED BY: SAGAR POP Jr., DO SIGNED DATE/TIME: 08/24/241609 CC: [place] [address] Ph: [phone] DIAGNOSTIC IMAGING Diagnostic Imaging Report : [id number] Signed PATIENT: JOSE MCCULLOUGH ACCT: [id number] UNIT: [id number] : 1950 LOC: ICU [facility] ROOM / BED: [facility] / A AGE / SEX: 73 / F ADM STATUS: ADM IN SERVICE 0400 ORDERING PHYSICIAN: CALI WITT RESIDENT PROCEDURE(s): CXRP - CHEST PORTABLE REASON: PNA ORDER NUMBER(s): [id number], ACCESSION NUMBER(s): [id number] EXAM: XR Chest, 1 View CLINICAL INDICATION: PNA TECHNIQUE: Frontal view of the chest. COMPARISON: XY CHEST PORTABLE on DOS: 08/26/24, XY CHEST PORTABLE on DOS: 08/25/24, XY CHEST PORTABLE on DOS: 08/24/24, XY CHEST PORTABLE on DOS: 08/23/24, XY CHEST PORTABLE on DOS: 08/22/24 FINDINGS: LUNGS AND PLEURAL SPACES: See below. HEART: Cardiomegaly with mild congestion. MEDIASTINUM: Unremarkable. Normal mediastinal contour. BONES/JOINTS: Unremarkable. No acute fracture. TUBES, LINES AND DEVICES: Stable tubes and lines. OTHER FINDINGS: . .. IMPRESSION: Cardiomegaly with mild congestion. ATED BY: AMANDA BOSCH MD DICTATED DATE/TIME: 08/27/24512 SIGNED BY: AMANDA BOSCH MD SIGNED DATE/TIME: 08/27/24512 CC: [address] [id number] Ph: [phone] DIAGNOSTIC IMAGING Diagnostic Imaging Report : [id number] Signed PATIENT: JOSE MCCULLOUGH ACCT: [id number] UNIT: [id number] : 1950 LOC: ICU [facility] ROOM / BED: [facility] / A AGE / SEX: 73 / F ADM STATUS: ADM IN SERVICE 0831 ORDERING PHYSICIAN: CALI WITT PROCEDURE(s): KUB - KUB ABDOMEN SINGLE VIEW REASON: DISTENDED ABD ORDER NUMBER(s): [id number], ACCESSION NUMBER(s): [id number] Date: 08/28/2024 09:56 AM Examination: XY KUB ABDOMEN SINGLE VIEW History: DISTENDED ABD Comparison: None TECHNIQUE: Frontal views of the abdomen was obtained. FINDINGS: NG tube in stomach. Diffusely distended loops of small bowel. The lung bases are unremarkable. No acute osseous abnormality identified. IMPRESSION: NG tube in stomach. Diffusely distended loops of small bowel. ATED BY: FAUSTO ZAVALA MD DICTATED DATE/TIME: 08/28/24 102 SIGNED BY: FAUSTO ZAVALA MD SIGNED DATE/TIME: 08/28/24 1025 CC: [place] [address] Ph: [phone] DIAGNOSTIC IMAGING Diagnostic Imaging Report : [id number] Signed PATIENT: JOSE MCCULLOUGH ACCT: [id number] UNIT: [id number] : 1950 LOC: [facility] ROOM / BED: [facility] A AGE / SEX: 73 / F ADM STATUS: ADM IN SERVICE 0400 ORDERING PHYSICIAN: CALI WITT PROCEDURE(s): CXRP - CHEST PORTABLE REASON: CHF ORDER NUMBER(s): [id number], ACCESSION NUMBER(s): [id number] EXAM: XR Chest, 1 View CLINICAL INDICATION: CHF TECHNIQUE: Frontal view of the chest. COMPARISON: XY CHEST PORTABLE on DOS: 08/27/24, XY CHEST PORTABLE on DOS: 08/27/24, XY CHEST PORTABLE on DOS: 08/26/24, XY CHEST PORTABLE on DOS: 08/25/24, XY CHEST PORTABLE on DOS: 08/24/24 FINDINGS: LUNGS AND PLEURAL SPACES: Mild congestive heart failure. No consolidation. No pneumothorax. HEART: Unremarkable. No cardiomegaly. MEDIASTINUM: Unremarkable. Normal mediastinal contour. BONES/JOINTS: Unremarkable. No acute fracture. TUBES, LINES AND DEVICES: Tracheostomy tube in satisfactory position. Enteric tube tip cannot be seen but is below the diaphragm. OTHER FINDINGS: . IMPRESSION: Mild congestive heart failure. ATED BY: AMANDA BOSCH MD DICTATED DATE/TIME: 08/28/24608 SIGNED BY: AMANDA BOSCH MD SIGNED DATE/TIME: 08/28/24 06 CC: [place] [address] Ph: [phone] DIAGNOSTIC IMAGING Diagnostic Imaging Report : [id number] Signed PATIENT: JOSE MCCULLOUGH ACCT: [id number] UNIT: [id number] : 1950 LOC: ICU [facility] ROOM / BED: [facility] / A AGE / SEX: 73 / F ADM STATUS: ADM IN SERVICE 0 ORDERING PHYSICIAN: CALI WITT RESIDENT PROCEDURE(s): KUB - KUB ABDOMEN SINGLE VIEW REASON: DISTENDED ABD ORDER NUMBER(s): [id number], ACCESSION NUMBER(s): [id number] Date: 08/28/2024 09:56 AM Examination: XY KUB ABDOMEN SINGLE VIEW History: DISTENDED ABD Comparison: None TECHNIQUE: Frontal views of the abdomen was obtained. FINDINGS: NG tube in stomach. Diffusely distended loops of small bowel. The lung bases are unremarkable. No acute osseous abnormality identified. IMPRESSION: NG tube in stomach. Diffusely distended loops of small bowel. ATED BY: FAUSTO ZAVALA MD DICTATED DATE/TIME: 08/28/24 102 SIGNED BY: FAUSTO ZAVALA MD SIGNED DATE/TIME: 08/28/24 102 CC: Condition at Discharge: Stable Final Diagnosis/Problems List # metabolic encephalopathy/toxic encephalopathy/hypoxic encephalopathy -acute hypoxic respiratory failure-tracheostomy done on 08/27/2022 -acute exacerbation of COPD -Acute diastolic heart failure s/p Cardiac Arrest -Septic shock- -New [place] set AF patient -paroxysmal Bradycardia -resolved -pulmonary hypertension -history of hypertension -hyperlipidemia -pulmonary hypertension -transaminitis -suspected UTI -HECTOR likely due to VMN -right kidney cyst in the lower pole -acute pneumonia Gram-positive versus Gram-negative -anemia of chronic disease -obesity -rheumatoid arthritis -gout Discharge Disposition: Acute Care Facility Discharge Instruct/Medications Diet: Cardiac 2g Na,low cholest Follow Up/Referral: Follow up with the MD at acute care facility Medications: As per EMR Discharge Statement: "Patient was advised to return to the ER or call 911 if any headaches, dizziness, shortness of breath, chest pain, abdominal pain, bleeding, fevers, or worsening of medical condition. Patient was counseled about treatment plan, medications, possible side effects, patientverbalized understanding. All questions were answered to the best of my ability. This discharge took greater then 30 minutes in planning, reviewing documentation, counseling the patient, and discussing with other team members." ASSESSMENT ASSESSMENT Assessment CALI WITT RESIDENT Aug 28, 2024 11:58
[2024-08-28 12:08] LABS: Basophils # (auto) 0.1 10 ^3/uL (0-0.2); Basophils % (auto) 0.4 % (0.0-2.0); Eosinophils # (auto) 0 10 ^3/uL (0-0.8); Hematocrit 39.1 % (36.0-46.0); Hemoglobin 12.5 g/dL (12.2-16.2); Lymphocytes # (auto) 0.7 10 ^3/uL (0.4-5.4); Lymphocytes % (auto) 3.5 % (10.0-50.0); Mean Corpuscular Hemoglobin 27.2 pg (28.0-32.0); Mean Corpuscular Hgb Conc. 32.1 g/dL (32.0-36.0); Mean Corpuscular Volume 84.9 fL (80.0-100.0); Monocytes # (auto) 1.3 10 ^3/uL (0-1.3); Neutrophils # (auto) 16.7 10 ^3/uL (1.6-8.6); Neutrophils % (auto) 89.1 % (37.0-80.0); Platelet Count (auto) 182 10^3/uL (140-450); Red Blood Cells 4.61 10^6/uL (4.0-5.20); Red Cell Distribution Width 15.6 % (11.8-14.3); White Blood Cell 18.7 10^3/uL (4.4-10.8)
[2024-08-28] MEDS: FLEET ENEMA(ADULT) 135 ML PR ONE (12:23)
--- NOTE | 2024-08-28 15:20 | DVH ---
PROCEDURE: MRI BRAIN HEAD WO CONTRAST INDICATION: ALOC EXAM DATE: 08/28/2024 02:29 PM COMPARISON: MRI BRAIN HEAD WO CONTRAST on DOS: 08/14/24 TECHNIQUE: MRI of the brain without intravenous contrast. FINDINGS: Limited by motion. Diffusion weighted images of the brain demonstrate no evidence of acute infarction. There is no evidence of acute intracranial hemorrhage, extra-axial collection, mass effect, midline s hift, herniation or hydrocephalus. Stable configuration of the lateral ventricles with mild dilation of the posterior horns right greate r than left. Mild changes of chronic microvascular ischemic disease. There are no signal abnormalities on the susceptibility weighted sequences. The major vascular flow voids are present. Right mastoid effusion. Mucous retention cyst posterior right ethmoid air cell. The surrounding soft tissues and osseous structures are unremarkable. IMPRESSION: 1. No evidence of acute infarction, intracranial hemorrhage, mass effect or hydrocephalus. Mild nguyen es of chronic microvascular ischemic disease. 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 Right mastoid effusion. HS:Y
--- NOTE | 2024-08-28 18:40 | DVHPN2 ---
Progress Note - Dictate Date Seen: Aug 28, 2024 Medical Necessity Reason Pt with a Central, PICC or Fol: Yes The following are medically ne: Central Line, Vigil Catheter Reason for vigil catheter: Strict I&O Subjective Patient underwent a tracheostomy Patient is back on a ventilator vital signs Vital Sign Date Time Temp Pulse Resp B/P (MAP) Pulse Ox O2 Delivery O2 Flow Rate FiO2 08/28/24 18:09 88 18 119/67 (84) 95 30 08/28/24 16:00 98.2 98.2 08/28/24 14:00 Mechanical Ventilator+ Total Intake and Output 08/27/24 08/27/24 08/28/24 15:00 23:00 07:00 Intake Total 304 ml 264 ml Output Total 976 ml 900 ml Balance -672 ml -636 ml medications Current Medications Medications Dose Ordered Sig/Kristen Route Start Time Stop Time Status Last Admin Dose Admin Ondansetron HCl 4 mg Q4HP PRN IV 08/11/24 13:00 Docusate Sodium 100 mg BIDPRN PRN PO 08/11/24 13:00 Acetaminophen 650 mg Q6HP PRN PO 08/11/24 13:00 Albuterol 2.5 mg Q6HWA NEB 08/11/24 18:00 08/28/24 18:09 2.5 MG Ipratropium [place] 0.5 mg Q6HWA NEB 08/11/24 18:00 08/28/24 18:09 0.5 MG Albuterol 2.5 mg Q2HPRN PRN NEB 08/11/24 20:45 08/20/24 10:09 2.5 MG Ipratropium [place] 0.5 mg Q2HPRN PRN NEB 08/11/24 20:45 08/20/24 10:09 0.5 MG Pantoprazole Sodium 40 mg DAILY IV 08/13/24 10:00 08/28/24 10:24 40 MG Sildenafil Citrate 20 mg TID@08,14,20 PO 08/14/24 14:00 08/28/24 16:05 20 MG Hydralazine HCl 10 mg Q6HP PRN IV 08/15/24 15:30 08/24/24 18:01 10 MG Labetalol HCl 20 mg Q2HPRN PRN IV 08/19/24 15:15 08/20/24 06:20 20 MG Clonidine HCl 0.1 mg BID PO 08/19/24 22:00 08/27/24 21:39 0.1 MG Sodium Chloride 10 ml QSHIFT@10,22 IV 08/20/24 22:00 08/28/24 10:25 10 ML Carvedilol 12.5 mg Q12HR PO 08/21/24 22:00 08/28/24 10:27 12.5 MG Furosemide 20 mg BIDD IV 08/23/24 06:00 08/28/24 17:55 20 MG Diagnostic Test (Pha) 1 strip ACHS 08/23/24 17:00 08/28/24 17:55 1 STRIP Insulin Human Regular ACHS SC 08/23/24 17:00 08/28/24 17:57 3 UNITS Dextrose 50 ml UD PRN IV 08/23/24 14:15 Bisacodyl 10 mg QHSP PRN TN 08/24/24 14:15 Potassium Chloride 100 ml @ 50 mls/hr Q2H IV 08/24/24 22:00 08/25/24 01:59 UNV Ertapenem 1 gm/ Sodium Chloride 50 ml @ 100 mls/hr 1400 IV 08/25/24 14:00 08/28/24 16:05 100 MLS/HR Enteral Nutritional Formula 1,000 ml 35ML/HR GT 08/25/24 12:00 Amino Acid Protein 30 ml BID GT 08/25/24 22:00 08/28/24 10:29 30 ML Prednisone 10 mg DAILY NG 08/27/24 10:00 08/28/24 10:25 10 MG Amlodipine Besylate 10 mg DAILY@1700 PO 08/27/24 17:00 08/28/24 17:55 10 MG Lorazepam 1 mg ONCE PRN IV 08/27/24 10:00 Carbamide Peroxide 5 drop Q12H EACH EAR 08/27/24 18:00 08/28/24 17:59 5 DROP objective VITAL SIGNS: Afebrile, stable signs. Intubated.sedated CHEST AND LUNGS: b/l coarse breath sounds HEART: Within normal limits.S1S2 rrr ABDOMEN: Soft.NT ND Ext no c/c/e laboratory and microbiology Laboratory Tests 08/28/24 11:44 08/28/24 04:26 Test 08/28/24 04:26 Range/Units Serum Glucose 207 H 74-106 mg/dL Problems(with codes): (1) Ventilator dependence (2) Pneumonia (3) CHF exacerbation Prognosis Plan NPO after midnight I will arrange EGD with PEG tube tomorrow Patient is also in the process of possibly being transferred to acute care facility Dietary Evaluation Review Recommendations by RD: Protein Supplementation Comments: 1) Increase TF rate from 30 mL/hr to 35 mL/hr. Initiate Pro-Stat @ 30 mL bid. Goal rate (including Pro-Stat) will provide 1208 kcals, 77g Pro, and 1178 mL free H2O (including flushes) per 24 hrs. Goal rate will meet ~ 100% estimated daily energy needs and ~94% estimated daily protein needs 2) Initiate vitamin C @ 500 mg and zinc sulfate @ 220 mg qd for 7 days 3) Advance to cardiac diet when medically feasible, pending HIGH WORKER approval 4) F/u with cardiology and pulmonology 5) Continue to monitor I&O, labs, and skin integrity Expected Outcomes/Goals: 1) appetite and labs to improve 2) diet to advance 3) f/u in 2-3 Interpretation of weight loss: up to 20% in 1 year Plan discussed with: Other (None) HANSA OLMOS MD Aug 28, 2024 18:40
--- NOTE | 2024-08-28 23:41 | DVHPN2 ---
Progress Note - Dictate Date Seen: Aug 28, 2024 Medical Necessity Reason Pt with a Central, PICC or Fol: Yes The following are medically ne: Central Line, Vigil Catheter Reason for vigil catheter: Strict I&O Subjective Patient was seen and evaluated in follow up in the ICU. Patient is intubated and sedated on ventilator. 30% FiO2. Patient is responsive to verbal stimuli however does not open eyes or follow verbal commands. KUB showed NG tube in stomach, diffusely distended loops of small bowel. WBC 18.7, BUN 38. MRI brain shows no evidence of acute infarction, intracranial hemorrhage, mass effect or hydrocephalus. Mild changes of chronic microvascular ischemic disease. 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 Right mastoid effusion. vital signs Vital Sign Date Time Temp Pulse Resp B/P (MAP) Pulse Ox O2 Delivery O2 Flow Rate FiO2 08/28/24 12:08 90 108/59 08/28/24 12:00 98.1 18 96 98.1 08/28/24 12:00 30 08/28/24 08:00 Mechanical Ventilator+ Total Intake and Output 08/27/24 08/27/24 08/28/24 14:59 22:59 06:59 Intake Total 304 ml 264 ml Output Total 976 ml 900 ml Balance -672 ml -636 ml medications Current Medications Medications Dose Ordered Sig/Kristen Route Start Time Stop Time Status Last Admin Dose Admin Ondansetron HCl 4 mg Q4HP PRN IV 08/11/24 13:00 Docusate Sodium 100 mg BIDPRN PRN PO 08/11/24 13:00 Acetaminophen 650 mg Q6HP PRN PO 08/11/24 13:00 Albuterol 2.5 mg Q6HWA NEB 08/11/24 18:00 08/28/24 12:00 2.5 MG Ipratropium [place] 0.5 mg Q6HWA NEB 08/11/24 18:00 08/28/24 12:00 0.5 MG Albuterol 2.5 mg Q2HPRN PRN NEB 08/11/24 20:45 08/20/24 10:09 2.5 MG Ipratropium [place] 0.5 mg Q2HPRN PRN NEB 08/11/24 20:45 08/20/24 10:09 0.5 MG Pantoprazole Sodium 40 mg DAILY IV 08/13/24 10:00 08/28/24 10:24 40 MG Sildenafil Citrate 20 mg TID@08,14,20 PO 08/14/24 14:00 08/28/24 07:59 20 MG Hydralazine HCl 10 mg Q6HP PRN IV 08/15/24 15:30 08/24/24 18:01 10 MG Labetalol HCl 20 mg Q2HPRN PRN IV 08/19/24 15:15 08/20/24 06:20 20 MG Clonidine HCl 0.1 mg BID PO 08/19/24 22:00 08/27/24 21:39 0.1 MG Sodium Chloride 10 ml QSHIFT@10,22 IV 08/20/24 22:00 08/28/24 10:25 10 ML Carvedilol 12.5 mg Q12HR PO 08/21/24 22:00 08/28/24 10:27 12.5 MG Furosemide 20 mg BIDD IV 08/23/24 06:00 08/28/24 06:17 20 MG Diagnostic Test (Pha) 1 strip ACHS 08/23/24 17:00 08/28/24 12:09 1 STRIP Insulin Human Regular ACHS SC 08/23/24 17:00 08/28/24 12:13 3 UNITS Dextrose 50 ml UD PRN IV 08/23/24 14:15 Bisacodyl 10 mg QHSP PRN [place] 08/24/24 14:15 Potassium Chloride 100 ml @ 50 mls/hr Q2H IV 08/24/24 22:00 08/25/24 01:59 UNV Ertapenem 1 gm/ Sodium Chloride 50 ml @ 100 mls/hr 1400 IV 08/25/24 14:00 08/27/24 14:48 100 MLS/HR Enteral Nutritional Formula 1,000 ml 35ML/HR GT 08/25/24 12:00 Amino Acid Protein 30 ml BID GT 08/25/24 22:00 08/28/24 10:29 30 ML Prednisone 10 mg DAILY NG 08/27/24 10:00 08/28/24 10:25 10 MG Amlodipine Besylate 10 mg DAILY@1700 PO 08/27/24 17:00 08/27/24 17:49 10 MG Lorazepam 1 mg ONCE PRN IV 08/27/24 10:00 Carbamide Peroxide 5 drop Q12H EACH EAR 08/27/24 18:00 08/28/24 06:17 5 DROP objective GENERAL: Intubated on ventilator. LUNGS: Decreased breath sounds. CARDIOVASCULAR: Heart sounds are good. ABDOMEN: Soft. laboratory and microbiology Laboratory Tests 08/28/24 11:44 08/28/24 04:26 Test 08/28/24 04:26 Range/Units Serum Glucose 207 H 74-106 mg/dL Problem List Metabolic encephalopathy/toxic encephalopathy/hypoxic encephalopathy. Status post cardiac arrest. Acute diastolic heart failure. New onset AFib. Paroxysmal Bradycardia . Acute hypoxic respiratory failure. Acute exacerbation of COPD. Pulmonary hypertension. Transaminitis. HECTOR. Pneumonia. Anemia of chronic disease. Obesity. Rheumatoid arthritis. Gout. Hypertension. Hyperlipidemia. Assessment/Plan Continued all current supportive medical care. Amlodipine, Coreg, Clonidine. IV antibiotics as ordered. Diuretics with Lasix. IV Labetalol for SBP >150 IV Hydralazine for SBP > 150. GI prophylactics. Additional plan as per the hospital course. Critical care time of 45 minutes provided to include time spent evaluation of patient at bedside, when appropriate patient/family education for diagnosis, treatment plan, review of pertinent medical information and discussion of care with specialty providers and PCP. Mechanical ventilator parameters, treatment and adjustments have personally been reviewed by me and treatment plan by assistant research scientist has also been reviewed. Dietary Evaluation Review Recommendations by RD: Protein Supplementation Comments: 1) Increase TF rate from 30 mL/hr to 35 mL/hr. Initiate Pro-Stat @ 30 mL bid. Goal rate (including Pro-Stat) will provide 1208 kcals, 77g Pro, and 1178 mL free H2O (including flushes) per 24 hrs. Goal rate will meet ~ 100% estimated daily energy needs and ~94% estimated daily protein needs 2) Initiate vitamin C @ 500 mg and zinc sulfate @ 220 mg qd for 7 days 3) Advance to cardiac diet when medically feasible, pending PATTERN MARKER approval 4) F/u with cardiology and pulmonology 5) Continue to monitor I&O, labs, and skin integrity Expected Outcomes/Goals: 1) appetite and labs to improve 2) diet to advance 3) f/u in 2-3 Interpretation of weight loss: up to 20% in 1 year Plan discussed with: Other ASHLEY BRADFORD MD Aug 28, 2024 13:12
[2024-08-29] VITALS (106 sets, daily range): BP systolic 70–161; BP diastolic 41–85; PULSE 71–102; RESP 15–20; TEMP 97.7–101.5; O2SAT 94–100
--- NOTE | 2024-08-29 05:14 | DVH ---
INDICATION: MECHANICAL VENTILATION TECHNIQUE: Frontal view of the chest. COMPARISON: XY CHEST PORTABLE on DOS: 08/28/24, XY CHEST PORTABLE on DOS: 08/27/24, XY CHEST PORTABLE on DOS: 08/27/24, XY CHEST PORTABLE on DOS: 08/26/24, XY CHEST PORTABLE on DOS: 08/25/24, XY CHEST PORTABLE o n DOS: 08/28/24 FINDINGS: LUNGS AND PLEURAL SPACES: Mild congestive heart failure. No consolidation. No pneumothorax. HEART: Unremarkable. No cardiomegaly. MEDIASTINUM: Unremarkable. Normal mediastinal contour. BONES/JOINTS: Unremarkable. No acute fracture. TUBES, LINES AND DEVICES: Tracheostomy tube in satisfactory position. Enteric tube tip cannot be s een but is below the diaphragm. OTHER FINDINGS: . IMPRESSION: Mild congestive heart failure.
[2024-08-29 06:29] LABS: Basophils # (auto) 0 10 ^3/uL (0-0.2); Eosinophils # (auto) 0 10 ^3/uL (0-0.8); Eosinophils % (auto) 0.1 % (0.0-7.0); Hemoglobin 11.8 g/dL (12.2-16.2); Lymphocytes # (auto) 0.9 10 ^3/uL (0.4-5.4)
[2024-08-29 06:32] LABS: Hematocrit 36.3 % (36.0-46.0); Lymphocytes % (auto) 5.1 % (10.0-50.0); Mean Corpuscular Hemoglobin 27.2 pg (28.0-32.0); Mean Corpuscular Hgb Conc. 32.4 g/dL (32.0-36.0); Mean Corpuscular Volume 84.1 fL (80.0-100.0); Monocytes # (auto) 0.9 10 ^3/uL (0-1.3); Monocytes % (auto) 5.3 % (0.0-12.0); Neutrophils # (auto) 15.7 10 ^3/uL (1.6-8.6); Neutrophils % (auto) 89.5 % (37.0-80.0); Platelet Count (auto) 169 10^3/uL (140-450); Red Blood Cells 4.32 10^6/uL (4.0-5.20); Red Cell Distribution Width 16.1 % (11.8-14.3); White Blood Cell 17.6 10^3/uL (4.4-10.8)
[2024-08-29 06:35] LABS: INR 1.08 (0.9-1.15); Partial Thromboplastin Time 24.7 SEC (24.5-34.5); Prothrombin Time 11.4 sec (9.3-11.8)
[2024-08-29 06:40] LABS: Base Excess 6.5 mmol/L (-2.0-3.0)
[2024-08-29 06:44] LABS: Alanine Aminotransferase 32 U/L (7-40); Albumin 3.8 g/dL (3.2-4.8); Alkaline Phosphatase 105 U/L (46-116); Anion Gap 12 (5-15); Aspartate Aminotransferase 33 U/L (13-40); BUN/Creatinine Ratio 47.9 (10.0-20.0); Bilirubin, Total 0.8 mg/dL (0.2-1.0); Blood Urea Nitrogen 46 mg/dL (9-23); Calcium 9.8 mg/dL (8.7-10.4); Carbon Dioxide 30 mmol/L (20-31); Chloride 103 mmol/L (98-107); Glucose 116 mg/dL (74-106); Potassium 3.1 mmol/L (3.5-5.1); Sodium 145 mmol/L (136-145)
[2024-08-29] MEDS ORDERED: VANCOMYCIN PER PHARMACY 0 MG IV SCH (09:45)
[2024-08-29] MEDS: VANCOMYCIN 750mg/150ml 150 ML IV SCH (10:56)
--- NOTE | 2024-08-29 11:36 | DVHPN2 ---
Progress Note - Dictate Date Seen: Aug 29, 2024 Medical Necessity Reason Pt with a Central, PICC or Fol: Yes The following are medically ne: Central Line, Vigil Catheter Reason for vigil catheter: Strict I&O Subjective Covering for Dr. Bella Patient seen and examined Overnight events reviewed vital signs Vital Sign Date Time Temp Pulse Resp B/P (MAP) Pulse Ox O2 Delivery O2 Flow Rate FiO2 08/29/24 11:23 89 18 126/84 (98) 98 30 08/29/24 06:00 Mechanical Ventilator+ 08/29/24 04:00 101.5 101.5 Total Intake and Output 08/28/24 08/28/24 08/29/24 15:00 23:00 07:00 Intake Total 283 ml Output Total 650 ml 575 ml Balance -367 ml -575 ml medications Current Medications Medications Dose Ordered Sig/Kristen Route Start Time Stop Time Status Last Admin Dose Admin Ondansetron HCl 4 mg Q4HP PRN IV 08/11/24 13:00 Docusate Sodium 100 mg BIDPRN PRN PO 08/11/24 13:00 Acetaminophen 650 mg Q6HP PRN PO 08/11/24 13:00 Albuterol 2.5 mg Q6HWA NEB 08/11/24 18:00 08/29/24 11:22 2.5 MG Ipratropium [place] 0.5 mg Q6HWA NEB 08/11/24 18:00 08/29/24 11:22 0.5 MG Albuterol 2.5 mg Q2HPRN PRN NEB 08/11/24 20:45 08/20/24 10:09 2.5 MG Ipratropium [place] 0.5 mg Q2HPRN PRN NEB 08/11/24 20:45 08/20/24 10:09 0.5 MG Pantoprazole Sodium 40 mg DAILY IV 08/13/24 10:00 08/29/24 10:57 40 MG Sildenafil Citrate 20 mg TID@08,14,20 PO 08/14/24 14:00 08/29/24 10:49 20 MG Hydralazine HCl 10 mg Q6HP PRN IV 08/15/24 15:30 08/24/24 18:01 10 MG Labetalol HCl 20 mg Q2HPRN PRN IV 08/19/24 15:15 08/20/24 06:20 20 MG Clonidine HCl 0.1 mg BID PO 08/19/24 22:00 08/29/24 10:55 0.1 MG Sodium Chloride 10 ml QSHIFT@10,22 IV 08/20/24 22:00 08/29/24 10:57 10 ML Carvedilol 12.5 mg Q12HR PO 08/21/24 22:00 08/29/24 10:55 12.5 MG Furosemide 20 mg BIDD IV 08/23/24 06:00 08/29/24 05:56 20 MG Diagnostic Test (Pha) 1 strip ACHS 08/23/24 17:00 08/29/24 11:29 1 STRIP Insulin Human Regular ACHS SC 08/23/24 17:00 08/29/24 11:30 2 UNITS Dextrose 50 ml UD PRN IV 08/23/24 14:15 Bisacodyl 10 mg QHSP PRN [place] 08/24/24 14:15 Potassium Chloride 100 ml @ 50 mls/hr Q2H IV 08/24/24 22:00 08/25/24 01:59 UNV Ertapenem 1 gm/ Sodium Chloride 50 ml @ 100 mls/hr 1400 IV 08/25/24 14:00 08/28/24 16:05 100 MLS/HR Enteral Nutritional Formula 1,000 ml 35ML/HR GT 08/25/24 12:00 Amino Acid Protein 30 ml BID GT 08/25/24 22:00 08/28/24 10:29 30 ML Prednisone 10 mg DAILY NG 08/27/24 10:00 08/29/24 10:55 10 MG Amlodipine Besylate 10 mg DAILY@1700 PO 08/27/24 17:00 08/28/24 17:55 10 MG Lorazepam 1 mg ONCE PRN IV 08/27/24 10:00 Carbamide Peroxide 5 drop Q12H EACH EAR 08/27/24 18:00 08/29/24 05:56 5 DROP Vancomycin HCl 0 ml @ 0 mls/hr UD IV 08/29/24 09:45 Vancomycin HCl 150 ml @ 150 mls/hr Q12H IV 08/29/24 11:00 08/29/24 10:56 150 MLS/HR laboratory and microbiology Laboratory Tests 08/29/24 04:41 Test 08/29/24 04:41 Range/Units Serum Glucose 116 H 74-106 mg/dL Assessment/Plan Impression Acute hypoxemic respiratory failure S/p tracheostomy Obesity COPD Patient seen and examined in ICU Events On mechanical ventilation S/p tracheostomy Remain vent dependent Tolerates CPAP however low lung volumes Family at the bedside updated Labs and imaging reviewed ABG reviewed Management Vent support Titrate to maintain sats 90% or above Trach care per RT protocols Bronchodilators Monitor renal function Monitor electrolytes Supplement as needed Pressors as needed for hemodynamic support To maintain a mean arterial pressure of 65 mmHg DVT prophylaxis Critical care time 35 minutes Dietary Evaluation Review Recommendations by RD: Protein Supplementation Comments: 1) Increase TF rate from 30 mL/hr to 35 mL/hr. Initiate Pro-Stat @ 30 mL bid. Goal rate (including Pro-Stat) will provide 1208 kcals, 77g Pro, and 1178 mL free H2O (including flushes) per 24 hrs. Goal rate will meet ~ 100% estimated daily energy needs and ~94% estimated daily protein needs 2) Initiate vitamin C @ 500 mg and zinc sulfate @ 220 mg qd for 7 days 3) Advance to cardiac diet when medically feasible, pending [employer] approval 4) F/u with cardiology and pulmonology 5) Continue to monitor I&O, labs, and skin integrity Expected Outcomes/Goals: 1) appetite and labs to improve 2) diet to advance 3) f/u in 2-3 Interpretation of weight loss: up to 20% in 1 year Plan discussed with: Spouse, Other (Rn) KATELYNN CALLAWAY MD Aug 29, 2024 11:36
--- NOTE | 2024-08-29 15:02 | DVHPN2 ---
Progress Note - Dictate Date Seen: Aug 29, 2024 Medical Necessity Reason Pt with a Central, PICC or Fol: Yes The following are medically ne: Central Line, Vigil Catheter Reason for vigil catheter: Strict I&O Subjective Ms. Recinos is a 73 years old female with a history of hypertension, dyslipidemia, coronary artery disease, heart attack, congestive heart failure, asthma, COPD on home oxygen, gout, anemia, the patient was admitted found her shelter on 08/11/2024 with a chief company of shortness of breath I have seen and examined the patient, I have talked to her nurse. Two sons are in the room with her. Her son claimed the patient was responsive to them yesterday. Her eyes are closed, responsive to touch stimuli, strong resistance when they tried to open her eyes, but she was nonresponsive to verbal stimuli, she does not move her extremities Status post tracheostomy, failed CPAP ABG, 08/12/2024: Respiratory acidosis, hypoxia WBC/HB/PLT/MCV, 08/12/2024: 7.2/11.9/302/85.7, 08/19/2024: 13.9/12.9/167/86.5 CMP, 08/12/2024: Unremarkable HGB A1c, 04/11/2024: 500 TBI/AST/ALT/AP, 08/19/2024: 0.19/61/108/86 TG/HDL/LDL/HDL, 05/2023: 101/2026/186/45 Vitamin B12, 03/2024: 1161 TSH, 03/2024: 1.39 EEG 08/13/2024: Remarkably abnormal Extremity venous study, 08/13/2024: No evidence of right or left femoropopliteal venous thrombosis. Chest x-ray, 08/12/2024: Left central venous catheter overlies the left upper chest and may be not position. Clinical correlation advised. Endotracheal tube in satisfactory position. Left central venous catheter in uncertain position Chest x-ray, 08/15/24: Hazy bilateral opacities are unchanged CXR, 08/26/2024: Pulmonary venous congestion CT head, 08/12/2024: Very mild cortical atrophy otherwise unremarkable study CT head, 08/17/2024: No acute intracranial abnormality CT head, 08/24/2024: 1. No acute intracranial hemorrhage. 2. No CT findings of territorial ischemia CTA chest, 08/13/2024: Grossly enlarged pulmonary arteries underlying pulmonary arterial hypertension is suspected no pulmonary embolus There are bilateral infiltrates in the lung bases MRI brain, 07/17/24: No acute intracranial pathology MRI brain, 08/28/2024: No evidence of acute infarction, intracranial hemorrhage, mass effect or hydrocephalus. Mild changes of chronic microvascular ischemic disease. 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 Right mastoid effusion. vital signs Vital Sign Date Time Temp Pulse Resp B/P (MAP) Pulse Ox O2 Delivery O2 Flow Rate FiO2 08/29/24 14:45 80 18 96/62 (73) 98 08/29/24 14:00 Mechanical Ventilator+ 30 30 08/29/24 11:45 97.7 97.7 Total Intake and Output 08/28/24 08/28/24 08/29/24 15:00 23:00 07:00 Intake Total 283 ml Output Total 650 ml 575 ml Balance -367 ml -575 ml medications Current Medications Medications Dose Ordered Sig/Kristen Route Start Time Stop Time Status Last Admin Dose Admin Ondansetron HCl 4 mg Q4HP PRN IV 08/11/24 13:00 Docusate Sodium 100 mg BIDPRN PRN PO 08/11/24 13:00 Acetaminophen 650 mg Q6HP PRN PO 08/11/24 13:00 Albuterol 2.5 mg Q6HWA NEB 08/11/24 18:00 08/29/24 11:22 2.5 MG Ipratropium [place] 0.5 mg Q6HWA NEB 08/11/24 18:00 08/29/24 11:22 0.5 MG Albuterol 2.5 mg Q2HPRN PRN NEB 08/11/24 20:45 08/20/24 10:09 2.5 MG Ipratropium [place] 0.5 mg Q2HPRN PRN NEB 08/11/24 20:45 08/20/24 10:09 0.5 MG Pantoprazole Sodium 40 mg DAILY IV 08/13/24 10:00 08/29/24 10:57 40 MG Sildenafil Citrate 20 mg TID@08,14,20 PO 08/14/24 14:00 08/29/24 10:49 20 MG Hydralazine HCl 10 mg Q6HP PRN IV 08/15/24 15:30 08/24/24 18:01 10 MG Labetalol HCl 20 mg Q2HPRN PRN IV 08/19/24 15:15 08/20/24 06:20 20 MG Clonidine HCl 0.1 mg BID PO 08/19/24 22:00 08/29/24 10:55 0.1 MG Sodium Chloride 10 ml QSHIFT@10,22 IV 08/20/24 22:00 08/29/24 10:57 10 ML Carvedilol 12.5 mg Q12HR PO 08/21/24 22:00 08/29/24 10:55 12.5 MG Furosemide 20 mg BIDD IV 08/23/24 06:00 08/29/24 05:56 20 MG Diagnostic Test (Pha) 1 strip ACHS 08/23/24 17:00 08/29/24 11:29 1 STRIP Insulin Human Regular ACHS SC 08/23/24 17:00 08/29/24 11:30 2 UNITS Dextrose 50 ml UD PRN IV 08/23/24 14:15 Bisacodyl 10 mg QHSP PRN [place] 08/24/24 14:15 Potassium Chloride 100 ml @ 50 mls/hr Q2H IV 08/24/24 22:00 08/25/24 01:59 UNV Ertapenem 1 gm/ Sodium Chloride 50 ml @ 100 mls/hr 1400 IV 08/25/24 14:00 08/28/24 16:05 100 MLS/HR Enteral Nutritional Formula 1,000 ml 35ML/HR GT 08/25/24 12:00 Amino Acid Protein 30 ml BID GT 08/25/24 22:00 08/28/24 10:29 30 ML Prednisone 10 mg DAILY NG 08/27/24 10:00 08/29/24 10:55 10 MG Amlodipine Besylate 10 mg DAILY@1700 PO 08/27/24 17:00 08/28/24 17:55 10 MG Lorazepam 1 mg ONCE PRN IV 08/27/24 10:00 Carbamide Peroxide 5 drop Q12H EACH EAR 08/27/24 18:00 08/29/24 05:56 5 DROP Vancomycin HCl 0 ml @ 0 mls/hr UD IV 08/29/24 09:45 Vancomycin HCl 150 ml @ 150 mls/hr Q12H IV 08/29/24 11:00 08/29/24 10:56 150 MLS/HR objective The patient is well-nourished and well-developed with no distress. MENTAL STATUS: Subjective, CRANIAL NERVES: pupils are equal round and reactive to light briskly, normal external eye movement, normal sensation and motor examination in the lateral trigeminal nerve distribution, no facial weakness SENSATION: Responses to pain stimuli. MOTOR: Normal tone in the upper and lower extremity. Normal muscle bulk. No fasciculations. No spontaneous extremity movement REFLEXES: Deep tendon reflexes are symmetrical. No pathological reflexes. CEREBELLAR/COORDINATION: Deferred GAIT/STATION: deferred. laboratory and microbiology Laboratory Tests 08/29/24 04:41 Test 08/29/24 04:41 Range/Units Serum Glucose 116 H 74-106 mg/dL Problem List Coma, resolved Hypoxic encephalopathy Metabolic encephalopathy Toxic encephalopathy Cardiopulmonary arrest Respiratory failure Hypoxia Status post CPR Sepsis Pneumonia Acidosis Seizure-like activity to rule out seizure attack Reported anisocoria with right-sided slightly weaker on 08/14/2024, evident physical examination on 08/19/2024 Assessment/Plan Monitoring Supportive treatment ICU care Follow-up labs Respiratory support Stabilize vitals Antibiotics Oxygen DVT prophylaxis GI prophylaxis Up to chair Physical therapy Need a feeding tube More recommendation per clinical course This medical document was created using an electronic medical record system with [employer] computerized dictation system. Although this document has been carefully reviewed, there may still be some phonetic and typographical errors. These areas are purely typographical due to imperfections of the software programs, and do not reflect any compromise in the patient's medical care. Prognosis guarded Dietary Evaluation Review Recommendations by RD: Protein Supplementation Comments: 1) Increase TF rate from 30 mL/hr to 35 mL/hr. Initiate Pro-Stat @ 30 mL bid. Goal rate (including Pro-Stat) will provide 1208 kcals, 77g Pro, and 1178 mL free H2O (including flushes) per 24 hrs. Goal rate will meet ~ 100% estimated daily energy needs and ~94% estimated daily protein needs 2) Initiate vitamin C @ 500 mg and zinc sulfate @ 220 mg qd for 7 days 3) Advance to cardiac diet when medically feasible, pending [employer] approval 4) F/u with cardiology and pulmonology 5) Continue to monitor I&O, labs, and skin integrity Expected Outcomes/Goals: 1) appetite and labs to improve 2) diet to advance 3) f/u in 2-3 Interpretation of weight loss: up to 20% in 1 year Plan discussed with: Son, Other PATRIZIA SHERWOOD MD Aug 29, 2024 15:02
--- NOTE | 2024-08-29 17:01 | DVHPN2 ---
Progress Note - Dictate Date Seen: Aug 29, 2024 Medical Necessity Reason Pt with a Central, PICC or Fol: Yes The following are medically ne: Central Line, Vigil Catheter Reason for vigil catheter: Strict I&O Subjective Patient was tentatively scheduled for a EGD with PEG tube placement today However this was canceled due to scheduling conflict vital signs Vital Sign Date Time Temp Pulse Resp B/P (MAP) Pulse Ox O2 Delivery O2 Flow Rate FiO2 08/29/24 16:00 30 08/29/24 16:00 85 08/29/24 16:00 18 97 Mechanical Ventilator+ 08/29/24 15:43 108/54 (72) 08/29/24 11:45 97.7 97.7 Total Intake and Output 08/28/24 08/28/24 08/29/24 15:00 23:00 07:00 Intake Total 283 ml Output Total 650 ml 575 ml Balance -367 ml -575 ml medications Current Medications Medications Dose Ordered Sig/Kristen Route Start Time Stop Time Status Last Admin Dose Admin Ondansetron HCl 4 mg Q4HP PRN IV 08/11/24 13:00 Docusate Sodium 100 mg BIDPRN PRN PO 08/11/24 13:00 Acetaminophen 650 mg Q6HP PRN PO 08/11/24 13:00 Albuterol 2.5 mg Q6HWA NEB 08/11/24 18:00 08/29/24 11:22 2.5 MG Ipratropium [place] 0.5 mg Q6HWA NEB 08/11/24 18:00 08/29/24 11:22 0.5 MG Albuterol 2.5 mg Q2HPRN PRN NEB 08/11/24 20:45 08/20/24 10:09 2.5 MG Ipratropium [place] 0.5 mg Q2HPRN PRN NEB 08/11/24 20:45 08/20/24 10:09 0.5 MG Pantoprazole Sodium 40 mg DAILY IV 08/13/24 10:00 08/29/24 10:57 40 MG Sildenafil Citrate 20 mg TID@08,14,20 PO 08/14/24 14:00 08/29/24 14:00 20 MG Hydralazine HCl 10 mg Q6HP PRN IV 08/15/24 15:30 08/24/24 18:01 10 MG Labetalol HCl 20 mg Q2HPRN PRN IV 08/19/24 15:15 08/20/24 06:20 20 MG Clonidine HCl 0.1 mg BID PO 08/19/24 22:00 08/29/24 10:55 0.1 MG Sodium Chloride 10 ml QSHIFT@10,22 IV 08/20/24 22:00 08/29/24 10:57 10 ML Carvedilol 12.5 mg Q12HR PO 08/21/24 22:00 08/29/24 10:55 12.5 MG Furosemide 20 mg BIDD IV 08/23/24 06:00 08/29/24 05:56 20 MG Diagnostic Test (Pha) 1 strip ACHS 08/23/24 17:00 08/29/24 11:29 1 STRIP Insulin Human Regular ACHS SC 08/23/24 17:00 08/29/24 11:30 2 UNITS Dextrose 50 ml UD PRN IV 08/23/24 14:15 Bisacodyl 10 mg QHSP PRN [place] 08/24/24 14:15 Potassium Chloride 100 ml @ 50 mls/hr Q2H IV 08/24/24 22:00 08/25/24 01:59 UNV Ertapenem 1 gm/ Sodium Chloride 50 ml @ 100 mls/hr 1400 IV 08/25/24 14:00 08/29/24 14:00 100 MLS/HR Enteral Nutritional Formula 1,000 ml 35ML/HR GT 08/25/24 12:00 Amino Acid Protein 30 ml BID GT 08/25/24 22:00 08/28/24 10:29 30 ML Prednisone 10 mg DAILY NG 08/27/24 10:00 08/29/24 10:55 10 MG Amlodipine Besylate 10 mg DAILY@1700 PO 08/27/24 17:00 08/28/24 17:55 10 MG Lorazepam 1 mg ONCE PRN IV 08/27/24 10:00 Carbamide Peroxide 5 drop Q12H EACH EAR 08/27/24 18:00 08/29/24 05:56 5 DROP objective VITAL SIGNS: Afebrile, stable signs. Intubated.sedated CHEST AND LUNGS: b/l coarse breath sounds HEART: Within normal limits.S1S2 rrr ABDOMEN: Soft.NT ND Ext no c/c/e laboratory and microbiology Laboratory Tests 08/29/24 04:41 Test 08/29/24 04:41 Range/Units Serum Glucose 116 H 74-106 mg/dL Problems(with codes): (1) Ventilator dependence (2) Pulmonary vascular congestion (3) Pneumonia (4) CHF exacerbation (5) COPD exacerbation Prognosis Plan Resume G-tube feedings for now NPO after midnight I will re-evaluate the schedule tomorrow to see if an endoscopy with PEG tube can be performed over the weekend Dietary Evaluation Review Recommendations by RD: Protein Supplementation Comments: 1) Increase TF rate from 30 mL/hr to 35 mL/hr. Initiate Pro-Stat @ 30 mL bid. Goal rate (including Pro-Stat) will provide 1208 kcals, 77g Pro, and 1178 mL free H2O (including flushes) per 24 hrs. Goal rate will meet ~ 100% estimated daily energy needs and ~94% estimated daily protein needs 2) Initiate vitamin C @ 500 mg and zinc sulfate @ 220 mg qd for 7 days 3) Advance to cardiac diet when medically feasible, pending [employer] approval 4) F/u with cardiology and pulmonology 5) Continue to monitor I&O, labs, and skin integrity Expected Outcomes/Goals: 1) appetite and labs to improve 2) diet to advance 3) f/u in 2-3 Interpretation of weight loss: up to 20% in 1 year Plan discussed with: Other (DELORIS Nurse) HANSA OLMOS MD Aug 29, 2024 17:01
[2024-08-29] MEDS: HYDROcodone-ACET 5/325MG TAB PO ONE (18:25)
[2024-08-29] MEDS: ALBUMIN 5% 250 ML IV ONE (22:09)
--- NOTE | 2024-08-29 23:27 | DVHPN2 ---
Progress Note - Dictate Date Seen: Aug 29, 2024 Medical Necessity Reason Pt with a Central, PICC or Fol: Yes The following are medically ne: Central Line, Vigil Catheter Reason for vigil catheter: Strict I&O Subjective Patient was seen and evaluated in follow up in the ICU. Patient is intubated and sedated on ventilator. 30% FiO2. Patient was tentatively scheduled for a EGD with PEG tube placement today, however this was canceled due to scheduling conflict. WBC 17.6, K 3.1, BUN 46. Chest x-ray showed mild congestive heart failure. vital signs Vital Sign Date Time Temp Pulse Resp B/P (MAP) Pulse Ox O2 Delivery O2 Flow Rate FiO2 08/29/24 11:23 89 18 126/84 (98) 98 30 08/29/24 06:00 Mechanical Ventilator+ 08/29/24 04:00 101.5 101.5 Total Intake and Output 08/28/24 08/28/24 08/29/24 15:00 23:00 07:00 Intake Total 283 ml Output Total 650 ml 575 ml Balance -367 ml -575 ml medications Current Medications Medications Dose Ordered Sig/Kristen Route Start Time Stop Time Status Last Admin Dose Admin Ondansetron HCl 4 mg Q4HP PRN IV 08/11/24 13:00 Docusate Sodium 100 mg BIDPRN PRN PO 08/11/24 13:00 Acetaminophen 650 mg Q6HP PRN PO 08/11/24 13:00 Albuterol 2.5 mg Q6HWA NEB 08/11/24 18:00 08/29/24 11:22 2.5 MG Ipratropium [place] 0.5 mg Q6HWA NEB 08/11/24 18:00 08/29/24 11:22 0.5 MG Albuterol 2.5 mg Q2HPRN PRN NEB 08/11/24 20:45 08/20/24 10:09 2.5 MG Ipratropium [place] 0.5 mg Q2HPRN PRN NEB 08/11/24 20:45 08/20/24 10:09 0.5 MG Pantoprazole Sodium 40 mg DAILY IV 08/13/24 10:00 08/29/24 10:57 40 MG Sildenafil Citrate 20 mg TID@08,14,20 PO 08/14/24 14:00 08/29/24 10:49 20 MG Hydralazine HCl 10 mg Q6HP PRN IV 08/15/24 15:30 08/24/24 18:01 10 MG Labetalol HCl 20 mg Q2HPRN PRN IV 08/19/24 15:15 08/20/24 06:20 20 MG Clonidine HCl 0.1 mg BID PO 08/19/24 22:00 08/29/24 10:55 0.1 MG Sodium Chloride 10 ml QSHIFT@10,22 IV 08/20/24 22:00 08/29/24 10:57 10 ML Carvedilol 12.5 mg Q12HR PO 08/21/24 22:00 08/29/24 10:55 12.5 MG Furosemide 20 mg BIDD IV 08/23/24 06:00 08/29/24 05:56 20 MG Diagnostic Test (Pha) 1 strip ACHS 08/23/24 17:00 08/29/24 11:29 1 STRIP Insulin Human Regular ACHS SC 08/23/24 17:00 08/29/24 11:30 2 UNITS Dextrose 50 ml UD PRN IV 08/23/24 14:15 Bisacodyl 10 mg QHSP PRN [place] 08/24/24 14:15 Potassium Chloride 100 ml @ 50 mls/hr Q2H IV 08/24/24 22:00 08/25/24 01:59 UNV Ertapenem 1 gm/ Sodium Chloride 50 ml @ 100 mls/hr 1400 IV 08/25/24 14:00 08/28/24 16:05 100 MLS/HR Enteral Nutritional Formula 1,000 ml 35ML/HR GT 08/25/24 12:00 Amino Acid Protein 30 ml BID GT 08/25/24 22:00 08/28/24 10:29 30 ML Prednisone 10 mg DAILY NG 08/27/24 10:00 08/29/24 10:55 10 MG Amlodipine Besylate 10 mg DAILY@1700 PO 08/27/24 17:00 08/28/24 17:55 10 MG Lorazepam 1 mg ONCE PRN IV 08/27/24 10:00 Carbamide Peroxide 5 drop Q12H EACH EAR 08/27/24 18:00 08/29/24 05:56 5 DROP Vancomycin HCl 0 ml @ 0 mls/hr UD IV 08/29/24 09:45 Vancomycin HCl 150 ml @ 150 mls/hr Q12H IV 08/29/24 11:00 08/29/24 10:56 150 MLS/HR objective GENERAL: Intubated on ventilator. LUNGS: Decreased breath sounds. CARDIOVASCULAR: Heart sounds are good. ABDOMEN: Soft. laboratory and microbiology Laboratory Tests 08/29/24 04:41 Test 08/29/24 04:41 Range/Units Serum Glucose 116 H 74-106 mg/dL Problem List Metabolic encephalopathy/toxic encephalopathy/hypoxic encephalopathy. Status post cardiac arrest. Acute diastolic heart failure. New onset AFib. Paroxysmal Bradycardia . Acute hypoxic respiratory failure. Acute exacerbation of COPD. Pulmonary hypertension. Transaminitis. HECTOR. Pneumonia. Anemia of chronic disease. Obesity. Rheumatoid arthritis. Gout. Hypertension. Hyperlipidemia. Assessment/Plan Continued all current supportive medical care. Amlodipine, Coreg, Clonidine. IV antibiotics as ordered. Diuretics with Lasix. IV Labetalol for SBP >150 IV Hydralazine for SBP > 150. GI prophylactics. Additional plan as per the hospital course. Critical care time of 45 minutes provided to include time spent evaluation of patient at bedside, when appropriate patient/family education for diagnosis, treatment plan, review of pertinent medical information and discussion of care with specialty providers and PCP. Mechanical ventilator parameters, treatment and adjustments have personally been reviewed by me and treatment plan by sustainable design coordinator has also been reviewed. Dietary Evaluation Review Recommendations by RD: Protein Supplementation Comments: 1) Increase TF rate from 30 mL/hr to 35 mL/hr. Initiate Pro-Stat @ 30 mL bid. Goal rate (including Pro-Stat) will provide 1208 kcals, 77g Pro, and 1178 mL free H2O (including flushes) per 24 hrs. Goal rate will meet ~ 100% estimated daily energy needs and ~94% estimated daily protein needs 2) Initiate vitamin C @ 500 mg and zinc sulfate @ 220 mg qd for 7 days 3) Advance to cardiac diet when medically feasible, pending [employer]EL[employer]ER approval 4) F/u with cardiology and pulmonology 5) Continue to monitor I&O, labs, and skin integrity Expected Outcomes/Goals: 1) appetite and labs to improve 2) diet to advance 3) f/u in 2-3 Interpretation of weight loss: up to 20% in 1 year Plan discussed with: ASHLEY Waggoner MD Aug 29, 2024 11:35
[2024-08-30] VITALS (106 sets, daily range): BP systolic 80–147; BP diastolic 41–90; PULSE 69–103; RESP 14–34; TEMP 97.1–99; O2SAT 92–100
[2024-08-30] MEDS: NOREPINEPHRINE 8 MG/250ML KIT 250 ML IV SCH (06:58)
[2024-08-30 09:09] LABS: Base Excess 2.7 mmol/L (-2.0-3.0)
[2024-08-30 14:21] LABS: Basophils # (auto) 0 10 ^3/uL (0-0.2); Basophils % (auto) 0.2 % (0.0-2.0); Eosinophils # (auto) 0.1 10 ^3/uL (0-0.8); Hemoglobin 10.7 g/dL (12.2-16.2); Lymphocytes # (auto) 0.9 10 ^3/uL (0.4-5.4); Monocytes # (auto) 0.8 10 ^3/uL (0-1.3); Neutrophils % (auto) 82.8 % (37.0-80.0); Red Blood Cells 3.96 10^6/uL (4.0-5.20)
[2024-08-30 14:23] LABS: Eosinophils % (auto) 0.8 % (0.0-7.0); Hematocrit 33.3 % (36.0-46.0); Lymphocytes % (auto) 8.8 % (10.0-50.0); Mean Corpuscular Hgb Conc. 32.2 g/dL (32.0-36.0); Mean Corpuscular Volume 84.1 fL (80.0-100.0); Monocytes % (auto) 7.4 % (0.0-12.0); Neutrophils # (auto) 8.5 10 ^3/uL (1.6-8.6); Platelet Count (auto) 134 10^3/uL (140-450); Red Cell Distribution Width 16.2 % (11.8-14.3); White Blood Cell 10.3 10^3/uL (4.4-10.8)
[2024-08-30 14:39] LABS: Alanine Aminotransferase 27 U/L (7-40); Albumin 3.8 g/dL (3.2-4.8); Alkaline Phosphatase 99 U/L (46-116); Anion Gap 10 (5-15); Aspartate Aminotransferase 30 U/L (13-40); BUN/Creatinine Ratio 36.1 (10.0-20.0); Bilirubin, Total 1.2 mg/dL (0.2-1.0); Blood Urea Nitrogen 35 mg/dL (9-23); Calcium 9.2 mg/dL (8.7-10.4); Carbon Dioxide 30 mmol/L (20-31); Chloride 109 mmol/L (98-107); Glucose 117 mg/dL (74-106); Magnesium 2.4 mg/dL (1.6-2.6); Potassium 2.9 mmol/L (3.5-5.1); Sodium 149 mmol/L (136-145); Total Protein 5.8 g/dL (5.7-8.2)
--- NOTE | 2024-08-30 15:34 | DVHPN2 ---
Progress Note - Dictate Date Seen: Aug 30, 2024 Medical Necessity Reason Pt with a Central, PICC or Fol: Yes The following are medically ne: Central Line, Vigil Catheter Reason for vigil catheter: Strict I&O Subjective Patient was seen and evaluated in follow up in the ICU. Patient is intubated and sedated on ventilator. 30% FiO2. Patient is on vasopressors for hemodynamic support. PER GI, no PEG placement today due to BP. Will reassess the patient tomorrow. NA 149, K 2.9, BUN 35. vital signs Vital Sign Date Time Temp Pulse Resp B/P (MAP) Pulse Ox O2 Delivery O2 Flow Rate FiO2 08/30/24 10:30 81 16 100/59 (73) 97 08/30/24 10:00 30 08/30/24 10:00 Mechanical Ventilator+ 08/30/24 08:00 97.5 97.5 Total Intake and Output 08/29/24 08/29/24 08/30/24 15:00 23:00 07:00 Intake Total 50 ml 350 ml 380 ml Output Total 575 ml 400 ml Balance 50 ml -225 ml -20 ml medications Current Medications Medications Dose Ordered Sig/Kristen Route Start Time Stop Time Status Last Admin Dose Admin Ondansetron HCl 4 mg Q4HP PRN IV 08/11/24 13:00 Docusate Sodium 100 mg BIDPRN PRN PO 08/11/24 13:00 Acetaminophen 650 mg Q6HP PRN PO 08/11/24 13:00 Albuterol 2.5 mg Q6HWA NEB 08/11/24 18:00 08/30/24 06:19 2.5 MG Ipratropium [place] 0.5 mg Q6HWA NEB 08/11/24 18:00 08/30/24 06:19 0.5 MG Albuterol 2.5 mg Q2HPRN PRN NEB 08/11/24 20:45 08/20/24 10:09 2.5 MG Ipratropium [place] 0.5 mg Q2HPRN PRN NEB 08/11/24 20:45 08/20/24 10:09 0.5 MG Pantoprazole Sodium 40 mg DAILY IV 08/13/24 10:00 08/30/24 09:29 40 MG Sildenafil Citrate 20 mg TID@08,14,20 PO 08/14/24 14:00 08/29/24 14:00 20 MG Hydralazine HCl 10 mg Q6HP PRN IV 08/15/24 15:30 08/24/24 18:01 10 MG Labetalol HCl 20 mg Q2HPRN PRN IV 08/19/24 15:15 08/20/24 06:20 20 MG Clonidine HCl 0.1 mg BID PO 08/19/24 22:00 08/29/24 10:55 0.1 MG Sodium Chloride 10 ml QSHIFT@10,22 IV 08/20/24 22:00 08/30/24 09:36 10 ML Carvedilol 12.5 mg Q12HR PO 08/21/24 22:00 Hold 08/29/24 10:55 12.5 MG Furosemide 20 mg BIDD IV 08/23/24 06:00 08/29/24 05:56 20 MG Diagnostic Test (Pha) 1 strip ACHS 08/23/24 17:00 08/30/24 05:55 1 STRIP Insulin Human Regular ACHS SC 08/23/24 17:00 08/29/24 22:38 2 UNITS Dextrose 50 ml UD PRN IV 08/23/24 14:15 Bisacodyl 10 mg QHSP PRN OK 08/24/24 14:15 Potassium Chloride 100 ml @ 50 mls/hr Q2H IV 08/24/24 22:00 08/25/24 01:59 UNV Ertapenem 1 gm/ Sodium Chloride 50 ml @ 100 mls/hr 1400 IV 08/25/24 14:00 08/29/24 14:00 100 MLS/HR Enteral Nutritional Formula 1,000 ml 35ML/HR GT 08/25/24 12:00 Amino Acid Protein 30 ml BID GT 08/25/24 22:00 08/28/24 10:29 30 ML Prednisone 10 mg DAILY NG 08/27/24 10:00 08/29/24 10:55 10 MG Amlodipine Besylate 10 mg DAILY@1700 PO 08/27/24 17:00 08/29/24 17:26 10 MG Lorazepam 1 mg ONCE PRN IV 08/27/24 10:00 Carbamide Peroxide 5 drop Q12H EACH EAR 08/27/24 18:00 08/30/24 06:00 5 DROP Norepinephrine Bitartrate 250 ml @ 3.75 mls/hr Q24H IV 08/30/24 06:45 08/30/24 06:58 3.75 MLS/HR objective GENERAL: Intubated on ventilator. LUNGS: Decreased breath sounds. CARDIOVASCULAR: Heart sounds are good. ABDOMEN: Soft. laboratory and microbiology Laboratory Tests 08/29/24 04:41 Test 08/29/24 04:41 Range/Units Serum Glucose 116 H 74-106 mg/dL Problem List Metabolic encephalopathy/toxic encephalopathy/hypoxic encephalopathy. Status post cardiac arrest. Acute diastolic heart failure. New onset AFib. Paroxysmal Bradycardia . Acute hypoxic respiratory failure. Acute exacerbation of COPD. Pulmonary hypertension. Transaminitis. HECTOR. Pneumonia. Anemia of chronic disease. Obesity. Rheumatoid arthritis. Gout. Hypertension. Hyperlipidemia. Assessment/Plan Continued all current supportive medical care. Amlodipine, Clonidine. IV antibiotics as ordered. Diuretics with Lasix. IV Labetalol for SBP >150 IV Hydralazine for SBP > 150. GI prophylactics. Vasopressors for hemodynamic support. Additional plan as per the hospital course. Critical care time of 45 minutes provided to include time spent evaluation of patient at bedside, when appropriate patient/family education for diagnosis, treatment plan, review of pertinent medical information and discussion of care with specialty providers and PCP. Mechanical ventilator parameters, treatment and adjustments have personally been reviewed by me and treatment plan by air intercept controller has also been reviewed. Dietary Evaluation Review Recommendations by RD: Protein Supplementation Comments: 1) Increase TF rate from 30 mL/hr to 35 mL/hr. Initiate Pro-Stat @ 30 mL bid. Goal rate (including Pro-Stat) will provide 1208 kcals, 77g Pro, and 1178 mL free H2O (including flushes) per 24 hrs. Goal rate will meet ~ 100% estimated daily energy needs and ~94% estimated daily protein needs 2) Initiate vitamin C @ 500 mg and zinc sulfate @ 220 mg qd for 7 days 3) Advance to cardiac diet when medically feasible, pending TOOL SPECIALIST approval 4) F/u with cardiology and pulmonology 5) Continue to monitor I&O, labs, and skin integrity Expected Outcomes/Goals: 1) appetite and labs to improve 2) diet to advance 3) f/u in 2-3 Interpretation of weight loss: up to 20% in 1 year Plan discussed with: Other ASHLEY BRADFORD MD Aug 30, 2024 11:23
--- NOTE | 2024-08-30 16:22 | DVHPN2 ---
Subjective Patient unresponsive Reviewed: Care Plan, H&P, Labs, Medications, Previous Orders, Radiology, Other (Consultants) Changes from previous H/P or p: No Changes General: Per HPI Objective Vitals Vital Signs Date Time Temp Pulse Resp B/P (MAP) Pulse Ox O2 Delivery O2 Flow Rate FiO2 08/30/24 15:33 82 16 112/70 (84) 100 30 08/30/24 14:00 Mechanical Ventilator+ 08/30/24 12:15 98.0 98.0 Intake/Output Intake and Output 08/30/24 07:00 Intake Total 780 ml Output Total 975 ml Balance -195 ml Intake Oral 80 ml IV Total 550 ml Tube Feeding 150 ml Output Urine Total 975 ml # Voids 100 General Appearance: moderate distress, Other (Encephalopathic) HEENT: Atraumatic, PERRLA Neck: Other (Tracheostomy) Lungs: Other (Few crackles bilaterally) Cardiovascular: Regular rate Abdomen: Soft Neuro: Other (Unable to assess) Skin: Dry, Intact Psych/Mental Status: Other (Unable to assess) Medications Current Medications Medications Dose Ordered Sig/Kristen Route Start Time Stop Time Status Last Admin Dose Admin Ondansetron HCl 4 mg Q4HP PRN IV 08/11/24 13:00 Docusate Sodium 100 mg BIDPRN PRN PO 08/11/24 13:00 Acetaminophen 650 mg Q6HP PRN PO 08/11/24 13:00 Albuterol 2.5 mg Q6HWA NEB 08/11/24 18:00 08/30/24 11:35 2.5 MG Ipratropium [place] 0.5 mg Q6HWA NEB 08/11/24 18:00 08/30/24 11:35 0.5 MG Albuterol 2.5 mg Q2HPRN PRN NEB 08/11/24 20:45 08/20/24 10:09 2.5 MG Ipratropium [place] 0.5 mg Q2HPRN PRN NEB 08/11/24 20:45 08/20/24 10:09 0.5 MG Pantoprazole Sodium 40 mg DAILY IV 08/13/24 10:00 08/30/24 09:29 40 MG Hydralazine HCl 10 mg Q6HP PRN IV 08/15/24 15:30 08/24/24 18:01 10 MG Labetalol HCl 20 mg Q2HPRN PRN IV 08/19/24 15:15 08/20/24 06:20 20 MG Sodium Chloride 10 ml QSHIFT@10,22 IV 08/20/24 22:00 08/30/24 09:36 10 ML Diagnostic Test (Pha) 1 strip ACHS 08/23/24 17:00 08/30/24 14:23 1 STRIP Insulin Human Regular ACHS SC 08/23/24 17:00 08/29/24 22:38 2 UNITS Dextrose 50 ml UD PRN IV 08/23/24 14:15 Bisacodyl 10 mg QHSP PRN AL 08/24/24 14:15 Potassium Chloride 100 ml @ 50 mls/hr Q2H IV 08/24/24 22:00 08/25/24 01:59 UNV Ertapenem 1 gm/ Sodium Chloride 50 ml @ 100 mls/hr 1400 IV 08/25/24 14:00 08/30/24 14:22 100 MLS/HR Enteral Nutritional Formula 1,000 ml 35ML/HR GT 08/25/24 12:00 Amino Acid Protein 30 ml BID GT 08/25/24 22:00 08/28/24 10:29 30 ML Prednisone 10 mg DAILY NG 08/27/24 10:00 08/29/24 10:55 10 MG Lorazepam 1 mg ONCE PRN IV 08/27/24 10:00 Carbamide Peroxide 5 drop Q12H EACH EAR 08/27/24 18:00 08/30/24 06:00 5 DROP Norepinephrine Bitartrate 250 ml @ 3.75 mls/hr Q24H IV 08/30/24 06:45 08/30/24 06:58 3.75 MLS/HR Furosemide 20 mg DAILY IV 08/31/24 10:00 Laboratory Results Laboratory Tests 08/30/24 13:53 Chemistry Test 08/30/24 13:53 Albumin 3.8 g/dL (3.2-4.8) Calcium Level 9.2 mg/dL (8.7-10.4) Magnesium Level 2.4 mg/dL (1.6-2.6) Total Protein 5.8 g/dL (5.7-8.2) LFT Test 08/30/24 13:53 Alanine Aminotransferase (ALT) 27 U/L (7-40) Alkaline Phosphatase 99 U/L (46-116) Aspartate Amino Transferase (AST) 30 U/L (13-40) Total Bilirubin 1.2 mg/dL (0.2-1.0) H Urinalysis Test 08/14/24 04:30 08/23/24 18:36 Urine Uric Acid Crystals Many /hpf (None Seen) Urine Hyaline Casts Few /lpf (0 - 2) Urine Color Colorless (Yellow) Urine Clarity Turbid (Clear) H Urine pH 6.5 (5.0-9.0) Urine Specific [place] 1.006 (1.001-1.035) Urine Protein Negative (Negative) Urine Ketones Negative (Negative) Urine Blood 2+ /uL (Negative) H Urine Nitrite Negative (Negative) Urine Bilirubin Negative (Negative) Urine Urobilinogen Normal mg/dL (Negative) Urine Leukocyte Esterase 3+ /uL (Negative) Urine RBC 110 /hpf (0 - 4) Urine WBC Clumps Present /hpf (None Seen) Urine Microscopic WBC 80 /HPF (0-5) H Urine Squamous Epithelial Cells None seen /hpf (<5) Urine Bacteria Few /hpf (None Seen) H Urine Mucus Few (None Seen) Urine Yeast (Budding) Few /hpf (None Seen) Urine Glucose 2+ mg/dL (Normal) H Blood Gas Results Test 08/30/24 08:45 Arterial Blood pH 7.571 (7.350-7.450) FiO2 % 30.0 Microbiology Microbiology Date/Time Source Procedure Growth Status 08/25/24 13:42 Nose MRSA Screen - Final Complete 08/23/24 18:36 Voided Urine Urine Culture - Final Presumptive Nell albicans Complete 08/13/24 04:40 Blood Blood Culture - Final NO GROWTH AFTER 5 DAYS OF INCUBATION. Complete 08/13/24 02:49 Sputum Gram Stain - Final Complete 08/13/24 02:49 Sputum Respiratory Culture - Final Complete Labs and/or images reviewed: Labs reviewed by me, Image(s) reviewed by me Assessment/Plan Assessment/Plan Impression: -cardiopulmonary arrest -community-acquired pneumonia, probable Gram-positive/Gram-negative etiology -acute hypoxic respiratory failure with mechanical ventilation dependence -status post tracheostomy -obesity -hypokalemia -pulmonary hypertension -hypotension -primary hypertension -COPD -sepsis Plan: -discussion made with the patient's family was bedside regarding plan of care. All questions answered. -stop antihypertensives. Stop Revatio given RVSP is 40 mmHg patient was on norepinephrine this a.m.. -potassium replacement -GI consultation for PEG tube placement -social service consultation for transfer to LTAC -continue antibiotic therapy -decrease IV Lasix 20 mg p.o. daily -continue tube feeding -repeat labs and chest x-ray in a.m. Critical care time spent with patient discussing and formulating plan of care: 40 minutes. This does not include time spent performing procedures. This medical document was created using an electronic medical record system with [employer] dictation system. Although this document has been carefully reviewed, there may still be some phonetic and typographical errors. These areas are purely typographical due to imperfections of the software programs, and do not reflect any compromise in the patient's medical care. Plan discussed with: Patient, Daughter, Son, Other (RN) My Orders Orders - CHASTITY PIERRE NP Procedure Category Date Status Time Ventilator Orders RT 08/30/24 Transmitted 09:10 Furosemide Injection PHA 08/31/24 In Process (Lasix Injection) 10:00 Basic Metabolic Panel LAB 08/31/24 Verified 04:00 Magnesium LAB 08/31/24 Verified 04:00 Chest Portable XY 08/31/24 Logged 04:00 Abg W/ Co-Ox RT 08/31/24 Logged 04:00 Date of Service: Aug 30, 2024 Billing Provider: CHASTITY PIERRE NP Common Visit Codes: [id number] CARE 30-74 MIN CHASTITY PIERRE NP Aug 30, 2024 16:22
[2024-08-30] MEDS: POTASSIUM EFFERVESENT TAB 25 MEQ PO ONE (16:54)
--- NOTE | 2024-08-30 18:28 | DVH ---
XY CHEST PORTABLE, HISTORY: NGT TO CONFIRM PLACEMENT COMPARISON: XY CHEST PORTABLE on DOS: 08/29/24, XY CHEST PORTABLE on DOS: 08/28/24, XY CHEST PORTABLE on DOS: 08/27/24 XY CHEST PORTABLE on DOS: 08/29/24, XY CHEST PORTABLE on DOS: 08/28/24, XY CHEST PORTABLE on DOS: 08/27/24 TECHNICAL DATA: 1 view of the chest was obtained. FINDINGS: Lines and tubes: Stable tracheostomy. NG in the stomach. Cardiomediastinal silhouette: Enlarged Pulmonary vasculature: Prominent Lung expansion: normal Lung airspace: normal Lung interstitium: normal Pleura: normal Pneumothorax: no Bones: Unremarkable Other: no IMPRESSION: Similar lung aeration bilaterally. NG in the stomach.
--- NOTE | 2024-08-30 19:46 | DVHPN2 ---
Progress Note - Dictate Date Seen: Aug 30, 2024 Medical Necessity Reason Pt with a Central, PICC or Fol: Yes The following are medically ne: Central Line, Vigil Catheter Reason for vigil catheter: Strict I&O Subjective Patient seen and examined at bedside. S/p trach, mechanical ventilator. Overnight events reviewed. vital signs Vital Sign Date Time Temp Pulse Resp B/P (MAP) Pulse Ox O2 Delivery O2 Flow Rate FiO2 08/30/24 19:15 91 17 117/70 (86) 96 08/30/24 18:23 30 08/30/24 18:00 Mechanical Ventilator+ 08/30/24 16:00 99.0 99.0 Total Intake and Output 08/29/24 08/29/24 08/30/24 15:00 23:00 07:00 Intake Total 50 ml 350 ml 380 ml Output Total 575 ml 400 ml Balance 50 ml -225 ml -20 ml medications Current Medications Medications Dose Ordered Sig/Kristen Route Start Time Stop Time Status Last Admin Dose Admin Ondansetron HCl 4 mg Q4HP PRN IV 08/11/24 13:00 Docusate Sodium 100 mg BIDPRN PRN PO 08/11/24 13:00 Acetaminophen 650 mg Q6HP PRN PO 08/11/24 13:00 Albuterol 2.5 mg Q6HWA NEB 08/11/24 18:00 08/30/24 18:23 2.5 MG Ipratropium [place] 0.5 mg Q6HWA NEB 08/11/24 18:00 08/30/24 18:23 0.5 MG Albuterol 2.5 mg Q2HPRN PRN NEB 08/11/24 20:45 08/20/24 10:09 2.5 MG Ipratropium [place] 0.5 mg Q2HPRN PRN NEB 08/11/24 20:45 08/20/24 10:09 0.5 MG Pantoprazole Sodium 40 mg DAILY IV 08/13/24 10:00 08/30/24 09:29 40 MG Hydralazine HCl 10 mg Q6HP PRN IV 08/15/24 15:30 08/24/24 18:01 10 MG Labetalol HCl 20 mg Q2HPRN PRN IV 08/19/24 15:15 08/20/24 06:20 20 MG Sodium Chloride 10 ml QSHIFT@10,22 IV 08/20/24 22:00 08/30/24 09:36 10 ML Diagnostic Test (Pha) 1 strip ACHS 08/23/24 17:00 08/30/24 18:24 1 STRIP Insulin Human Regular ACHS SC 08/23/24 17:00 08/29/24 22:38 2 UNITS Dextrose 50 ml UD PRN IV 08/23/24 14:15 Bisacodyl 10 mg QHSP PRN MA 08/24/24 14:15 Potassium Chloride 100 ml @ 50 mls/hr Q2H IV 08/24/24 22:00 08/25/24 01:59 UNV Ertapenem 1 gm/ Sodium Chloride 50 ml @ 100 mls/hr 1400 IV 08/25/24 14:00 08/30/24 14:22 100 MLS/HR Enteral Nutritional Formula 1,000 ml 35ML/HR GT 08/25/24 12:00 Amino Acid Protein 30 ml BID GT 08/25/24 22:00 08/28/24 10:29 30 ML Prednisone 10 mg DAILY NG 08/27/24 10:00 08/29/24 10:55 10 MG Lorazepam 1 mg ONCE PRN IV 08/27/24 10:00 Carbamide Peroxide 5 drop Q12H EACH EAR 08/27/24 18:00 08/30/24 06:00 5 DROP Norepinephrine Bitartrate 250 ml @ 3.75 mls/hr Q24H IV 08/30/24 06:45 08/30/24 06:58 3.75 MLS/HR Furosemide 20 mg DAILY IV 08/31/24 10:00 objective Gen.: Patient lying in bed in medical ICU. On mechanical ventilator. S/p trach Head: Normocephalic, atraumatic. Eyes: PERRLA. Ears: Normal external anatomy. Throat: Endotracheal tube and orogastric tube in place. Neck: Trach in place. Chest: Transmitted breath sounds bilaterally. Decreased air entry bilaterally. No wheezing. Bibasilar crackles. Cardiovascular: Positive S1, positive S2. Regular rate and rhythm. Abdomen: Positive bowel sounds in all 4 quadrants. Soft, nontender, nondistended. : Vigil in place. Normal external genitalia. Rectal: Deferred. Skin: Warm, dry. Intact. Extremities: 2+ radial pulses bilaterally. No lower extremity edema. Neuro: Off sedation laboratory and microbiology Laboratory Tests 08/30/24 13:53 Test 08/30/24 13:53 Range/Units Serum Glucose 117 H 74-106 mg/dL Assessment/Plan Impression: Acute hypoxic respiratory failure Acute hypercarbic respiratory failure On mechanical ventilator S/p tracheostomy Acute metabolic encephalopathy Shock, septic vs cardiogenic Bilateral pneumonia Obesity BMI 36.1 Mucous plugging Atelectasis Pulmonary hypertension, RVSP 51 mmHg (03/2024) COPD, Moderate obstructive ventilatory defect Reduced DLCO s/p cardiac arrest with ROSC Events: Trached on CPAP PSV 16, PEEP 5 FiO2 30% Trach care Sedation off this morning at 0800 hours. Pressors as necessary for hemodynamic support On Levophed 2 mcg/min Titrate to keep mean arterial pressure greater than [address]. Continue antibiotics Continue bronchodilators Accu-Cheks, ISS. Diurese PRN Monitor renal function Tube feeds for nutritional support Labs and imaging reviewed. Rest of plan as noted below. Plan: s/p intubation on mechanical ventilator. Currently trached on CPAP PSV 16, PEEP 5 FiO2 30% Trach care Place on full vent support if any distress. Titrate FIO2 to keep O2 saturation above 90%. VAP bundle. Daily ABG and CXR while intubated Off sedation S/p therapeutic bronchoscopy on 08/12/24, removed mucous plugging from L6-L10 and R1-R3. S/p central line and arterial line placement See separate procedure notes for details of procedures. Pressors as necessary for hemodynamic support Titrate to keep mean arterial pressure greater than 65 mmHg Continue antibiotics. Monitor renal function Monitor electrolytes. Supplement as necessary. Monitor ins and outs. GI prophylaxis. DVT prophylaxis. Prognosis: Poor given patient's multiple co-morbidities. Condition: Critical Rest of plan per hospitalist and other consultants. A total of 35 minutes of critical care time was spent reviewing the patient record, examining the patient, making a diagnostic and therapeutic plan, discussing this plan with the medical personnel, following up on diagnostic studies and following the patient for clinical stability excluding any and all procedures. At least 50% of this time was spent in direct, [id number] contact. Thank you, Dr. Strickland, for allowing me to participate in this patient's care. Further recommendations will depend on the patient's clinical course. Please do not hesitate to contact me if you have any questions or concerns. This medical document was created using an electronic medical record system with [employer] dictation system. Although these documentations are being carefully reviewed, there may still be some phonetic and typographical changes. The errors are purely typographical, due to imperfection on the software program, and do not reflect any compromise in the patient's medical care. Dietary Evaluation Review Recommendations by RD: Protein Supplementation Comments: 1) Increase TF rate from 30 mL/hr to 35 mL/hr. Initiate Pro-Stat @ 30 mL bid. Goal rate (including Pro-Stat) will provide 1208 kcals, 77g Pro, and 1178 mL free H2O (including flushes) per 24 hrs. Goal rate will meet ~ 100% estimated daily energy needs and ~94% estimated daily protein needs 2) Initiate vitamin C @ 500 mg and zinc sulfate @ 220 mg qd for 7 days 3) Advance to cardiac diet when medically feasible, pending WORKFORCE DEVELOPMENT VICE PRESIDENT approval 4) F/u with cardiology and pulmonology 5) Continue to monitor I&O, labs, and skin integrity Expected Outcomes/Goals: 1) appetite and labs to improve 2) diet to advance 3) f/u in 2-3 Interpretation of weight loss: up to 20% in 1 year Plan discussed with: Other (RN) Critical Care Time(min): 35 EDITH ANSARI MD Aug 30, 2024 19:45
[2024-08-31] VITALS (103 sets, daily range): BP systolic 93–146; BP diastolic 55–85; PULSE 73–105; RESP 14–21; TEMP 98.1–99.1; O2SAT 93–100
[2024-08-31 04:54] LABS: Anion Gap 10 (5-15); Carbon Dioxide 28 mmol/L (20-31)
[2024-08-31 04:55] LABS: Calcium 9.1 mg/dL (8.7-10.4)
[2024-08-31 04:58] LABS: Chloride 112 mmol/L (98-107); Potassium 3.5 mmol/L (3.5-5.1); Sodium 150 mmol/L (136-145)
[2024-08-31 04:59] LABS: BUN/Creatinine Ratio 33.3 (10.0-20.0)
[2024-08-31 05:00] LABS: Magnesium 2.3 mg/dL (1.6-2.6)
[2024-08-31 05:01] LABS: Blood Urea Nitrogen 30 mg/dL (9-23); Glucose 130 mg/dL (74-106)
--- NOTE | 2024-08-31 05:51 | DVH ---
CHEST RADIOGRAPH Indication: chf Technique: Single frontal view of the chest was obtained Comparison: XY CHEST PORTABLE on DOS: 08/30/24, XY CHEST PORTABLE on DOS: 08/29/24, XY CHEST PORTABLE on DOS: 08/28/24 IMPRESSION: Cardiac silhouette is stable. Tracheostomy tube and enteric tube appear unchanged. [id number] pulmonary vascular congestion, interstitial prominence. No sizable effusion or pneumothorax. No signi ficant interval change.
[2024-08-31 07:06] LABS: Base Excess 4.7 mmol/L (-2.0-3.0)
--- NOTE | 2024-08-31 08:53 | DVHPN2 ---
Subjective Patient responds to pain. Opens eyes. Not following commands Reviewed: Care Plan, H&P, Labs, Medications, Previous Orders, Radiology, Other (Consultants) Changes from previous H/P or p: No Changes General: Per HPI Objective Vitals Vital Signs Date Time Temp Pulse Resp B/P (MAP) Pulse Ox O2 Delivery O2 Flow Rate FiO2 08/31/24 08:20 83 16 120/64 (82) 99 30 08/31/24 06:00 Mechanical Ventilator+ 08/31/24 04:00 99.1 99.1 Intake/Output Intake and Output 08/31/24 07:00 Intake Total 220 ml Output Total 850 ml Balance -630 ml Intake Oral 0 ml IV Total 100 ml Tube Feeding 120 ml Output Urine Total 850 ml General Appearance: mild distress, Other (Encephalopathic) HEENT: Atraumatic, PERRLA Neck: Other (Tracheostomy) Lungs: Other (Few crackles bilaterally) Cardiovascular: Normal S1, Normal S2, Other (Atrial fibrillation with unifocal PVCs) Abdomen: Soft Genitourinary: No Apparent Abnormalities (Catheter) Neuro: Other (Unable to assess) Skin: Dry, Intact Psych/Mental Status: Other (Unable to assess) Medications Current Medications Medications Dose Ordered Sig/Kristen Route Start Time Stop Time Status Last Admin Dose Admin Ondansetron HCl 4 mg Q4HP PRN IV 08/11/24 13:00 Docusate Sodium 100 mg BIDPRN PRN PO 08/11/24 13:00 Acetaminophen 650 mg Q6HP PRN PO 08/11/24 13:00 Albuterol 2.5 mg Q6HWA NEB 08/11/24 18:00 08/31/24 06:12 2.5 MG Ipratropium [place] 0.5 mg Q6HWA NEB 08/11/24 18:00 08/31/24 06:12 0.5 MG Albuterol 2.5 mg Q2HPRN PRN NEB 08/11/24 20:45 08/20/24 10:09 2.5 MG Ipratropium [place] 0.5 mg Q2HPRN PRN NEB 08/11/24 20:45 08/20/24 10:09 0.5 MG Pantoprazole Sodium 40 mg DAILY IV 08/13/24 10:00 08/30/24 09:29 40 MG Hydralazine HCl 10 mg Q6HP PRN IV 08/15/24 15:30 08/24/24 18:01 10 MG Labetalol HCl 20 mg Q2HPRN PRN IV 08/19/24 15:15 08/20/24 06:20 20 MG Sodium Chloride 10 ml QSHIFT@10,22 IV 08/20/24 22:00 08/30/24 22:13 10 ML Diagnostic Test (Pha) 1 strip ACHS 08/23/24 17:00 08/31/24 06:59 1 STRIP Insulin Human Regular ACHS SC 08/23/24 17:00 08/29/24 22:38 2 UNITS Dextrose 50 ml UD PRN IV 08/23/24 14:15 Bisacodyl 10 mg QHSP PRN MS 08/24/24 14:15 Potassium Chloride 100 ml @ 50 mls/hr Q2H IV 08/24/24 22:00 08/25/24 01:59 UNV Ertapenem 1 gm/ Sodium Chloride 50 ml @ 100 mls/hr 1400 IV 08/25/24 14:00 08/30/24 14:22 100 MLS/HR Enteral Nutritional Formula 1,000 ml 35ML/HR GT 08/25/24 12:00 Amino Acid Protein 30 ml BID GT 08/25/24 22:00 08/30/24 22:32 30 ML Prednisone 10 mg DAILY NG 08/27/24 10:00 08/29/24 10:55 10 MG Lorazepam 1 mg ONCE PRN IV 08/27/24 10:00 Carbamide Peroxide 5 drop Q12H EACH EAR 08/27/24 18:00 08/31/24 06:00 5 DROP Norepinephrine Bitartrate 250 ml @ 3.75 mls/hr Q24H IV 08/30/24 06:45 08/30/24 06:58 3.75 MLS/HR Furosemide 20 mg DAILY IV 08/31/24 10:00 Purified Water 200 ml Q6HR GT 08/31/24 12:00 Laboratory Results Laboratory Tests 08/30/24 13:53 08/31/24 04:25 Chemistry Test 08/30/24 13:53 08/31/24 04:25 Albumin 3.8 g/dL (3.2-4.8) Calcium Level 9.2 mg/dL (8.7-10.4) 9.1 mg/dL (8.7-10.4) Magnesium Level 2.4 mg/dL (1.6-2.6) 2.3 mg/dL (1.6-2.6) Total Protein 5.8 g/dL (5.7-8.2) LFT Test 08/30/24 13:53 Alanine Aminotransferase (ALT) 27 U/L (7-40) Alkaline Phosphatase 99 U/L (46-116) Aspartate Amino Transferase (AST) 30 U/L (13-40) Total Bilirubin 1.2 mg/dL (0.2-1.0) H Urinalysis Test 08/14/24 04:30 08/23/24 18:36 Urine Uric Acid Crystals Many /hpf (None Seen) Urine Hyaline Casts Few /lpf (0 - 2) Urine Color Colorless (Yellow) Urine Clarity Turbid (Clear) H Urine pH 6.5 (5.0-9.0) Urine Specific [place] 1.006 (1.001-1.035) Urine Protein Negative (Negative) Urine Ketones Negative (Negative) Urine Blood 2+ /uL (Negative) H Urine Nitrite Negative (Negative) Urine Bilirubin Negative (Negative) Urine Urobilinogen Normal mg/dL (Negative) Urine Leukocyte Esterase 3+ /uL (Negative) Urine RBC 110 /hpf (0 - 4) Urine WBC Clumps Present /hpf (None Seen) Urine Microscopic WBC 80 /HPF (0-5) H Urine Squamous Epithelial Cells None seen /hpf (<5) Urine Bacteria Few /hpf (None Seen) H Urine Mucus Few (None Seen) Urine Yeast (Budding) Few /hpf (None Seen) Urine Glucose 2+ mg/dL (Normal) H Blood Gas Results Test 08/31/24 06:50 Arterial Blood pH 7.537 (7.350-7.450) FiO2 % 30.0 Microbiology Microbiology Date/Time Source Procedure Growth Status 08/25/24 13:42 Nose MRSA Screen - Final Complete 08/23/24 18:36 Voided Urine Urine Culture - Final Presumptive Nell albicans Complete 08/13/24 04:40 Blood Blood Culture - Final NO GROWTH AFTER 5 DAYS OF INCUBATION. Complete 08/13/24 02:49 Sputum Gram Stain - Final Complete 08/13/24 02:49 Sputum Respiratory Culture - Final Complete Labs and/or images reviewed: Labs reviewed by me, Image(s) reviewed by me Assessment/Plan Assessment/Plan Impression: -cardiopulmonary arrest -community-acquired pneumonia, probable Gram-positive/Gram-negative etiology -acute hypoxic respiratory failure with mechanical ventilation dependence -status post tracheostomy -obesity -hypokalemia -pulmonary hypertension -hypotension -primary hypertension -COPD -sepsis -atrial fibrillation Plan: Events: Patient's blood pressure improved. Continues to be on 30% FiO2. -start DVT prophylaxis. Recommend to stop Lovenox once risk engineer decided to take patient for PEG placement -potassium replacement -GI consultation for PEG tube placement -social service consultation for transfer to LTAC -continue antibiotic therapy -decrease IV Lasix 20 mg p.o. daily -continue tube feeding -repeat labs and chest x-ray in a.m. Critical care time spent with patient discussing and formulating plan of care: 40 minutes. This does not include time spent performing procedures. This medical document was created using an electronic medical record system with [employer] dictation system. Although this document has been carefully reviewed, there may still be some phonetic and typographical errors. These areas are purely typographical due to imperfections of the software programs, and do not reflect any compromise in the patient's medical care. Plan discussed with: Patient, Other (RN) My Orders Orders - CHASTITY PIERRE NP Procedure Category Date Status Time Ventilator Orders RT 08/30/24 Transmitted 09:10 Furosemide Injection PHA 08/31/24 In Process (Lasix Injection) 10:00 Chest Portable XY 08/31/24 Resulted 04:00 Abg W/ Co-Ox RT 08/31/24 Logged 04:00 Free Water PHA 08/31/24 In Process 12:00 Basic Metabolic Panel LAB 09/01/24 Verified 04:00 Chest Portable XY 09/01/24 Logged 04:00 Abg W/ Co-Ox RT 09/01/24 Logged 04:00 Complete Blood Count LAB 09/01/24 Verified 04:00 Potassium Effervesent PHA 08/31/24 Verified Tab (Klor-Con/Ef) 09:00 Date of Service: Aug 31, 2024 Billing Provider: CHASTITY PIERRE NP Common Visit Codes: [id number] CARE 30-74 MIN CHASTITY PIERRE NP Aug 31, 2024 08:53
[2024-08-31] MEDS: POTASSIUM EFFERVESENT TAB 25 MEQ PO ONE (09:58)
[2024-08-31] MEDS: ENOXAPARIN SOD 40 MG/0.4 ML SYRINGE SC SCH (10:01)
[2024-08-31] MEDS: FUROSEMIDE 20 MG/2 ML VIAL IV SCH (10:03)
[2024-08-31] MEDS: FREE WATER GT SCH (12:05)
--- NOTE | 2024-08-31 13:49 | DVHPN2 ---
Progress Note - Dictate Date Seen: Aug 31, 2024 Medical Necessity Reason Pt with a Central, PICC or Fol: Yes The following are medically ne: Central Line, Vigil Catheter Reason for vigil catheter: Strict I&O Subjective Patient was seen and evaluated in follow up in the ICU. Patient is intubated and sedated on ventilator via trach. 30% FiO2. Patient is receiving vasopressors for hemodynamic support. Patient is having loose BMs. NA 150, BUN 30. Chest x-ray shows tracheostomy tube and enteric tube appear unchanged, [id number] pulmonary vascular congestion, interstitial prominence. vital signs Vital Sign Date Time Temp Pulse Resp B/P (MAP) Pulse Ox O2 Delivery O2 Flow Rate FiO2 08/31/24 12:00 98.5 90 14 105/72 (83) 100 98.5 08/31/24 12:00 Mechanical Ventilator+ 30 30 Total Intake and Output 08/30/24 08/30/24 08/31/24 15:00 23:00 07:00 Intake Total 100 ml 0 ml 120 ml Output Total 400 ml 450 ml Balance 100 ml -400 ml -330 ml medications Current Medications Medications Dose Ordered Sig/Kristen Route Start Time Stop Time Status Last Admin Dose Admin Ondansetron HCl 4 mg Q4HP PRN IV 08/11/24 13:00 Docusate Sodium 100 mg BIDPRN PRN PO 08/11/24 13:00 Acetaminophen 650 mg Q6HP PRN PO 08/11/24 13:00 Albuterol 2.5 mg Q6HWA NEB 08/11/24 18:00 08/31/24 11:49 2.5 MG Ipratropium [place] 0.5 mg Q6HWA NEB 08/11/24 18:00 08/31/24 11:49 0.5 MG Albuterol 2.5 mg Q2HPRN PRN NEB 08/11/24 20:45 08/20/24 10:09 2.5 MG Ipratropium [place] 0.5 mg Q2HPRN PRN NEB 08/11/24 20:45 08/20/24 10:09 0.5 MG Pantoprazole Sodium 40 mg DAILY IV 08/13/24 10:00 08/31/24 10:03 40 MG Hydralazine HCl 10 mg Q6HP PRN IV 08/15/24 15:30 08/24/24 18:01 10 MG Labetalol HCl 20 mg Q2HPRN PRN IV 08/19/24 15:15 08/20/24 06:20 20 MG Sodium Chloride 10 ml QSHIFT@10,22 IV 08/20/24 22:00 08/31/24 10:03 10 ML Diagnostic Test (Pha) 1 strip ACHS 08/23/24 17:00 08/31/24 11:30 1 STRIP Insulin Human Regular ACHS SC 08/23/24 17:00 08/29/24 22:38 2 UNITS Dextrose 50 ml UD PRN IV 08/23/24 14:15 Bisacodyl 10 mg QHSP PRN NM 08/24/24 14:15 Potassium Chloride 100 ml @ 50 mls/hr Q2H IV 08/24/24 22:00 08/25/24 01:59 UNV Ertapenem 1 gm/ Sodium Chloride 50 ml @ 100 mls/hr 1400 IV 08/25/24 14:00 08/30/24 14:22 100 MLS/HR Enteral Nutritional Formula 1,000 ml 35ML/HR GT 08/25/24 12:00 Amino Acid Protein 30 ml BID GT 08/25/24 22:00 08/30/24 22:32 30 ML Prednisone 10 mg DAILY NG 08/27/24 10:00 08/31/24 09:58 10 MG Lorazepam 1 mg ONCE PRN IV 08/27/24 10:00 Carbamide Peroxide 5 drop Q12H EACH EAR 08/27/24 18:00 08/31/24 06:00 5 DROP Norepinephrine Bitartrate 250 ml @ 3.75 mls/hr Q24H IV 08/30/24 06:45 08/30/24 06:58 3.75 MLS/HR Furosemide 20 mg DAILY IV 08/31/24 10:00 08/31/24 10:03 20 MG Purified Water 200 ml Q6HR GT 08/31/24 12:00 08/31/24 12:05 200 ML Enoxaparin Sodium 40 mg DAILY SC 08/31/24 10:00 08/31/24 10:01 40 MG objective GENERAL: Intubated on ventilator. LUNGS: Decreased breath sounds. CARDIOVASCULAR: Heart sounds are good. ABDOMEN: Soft. laboratory and microbiology Laboratory Tests 08/31/24 04:25 08/30/24 13:53 Test 08/31/24 04:25 Range/Units Serum Glucose 130 H 74-106 mg/dL Problem List Metabolic encephalopathy/toxic encephalopathy/hypoxic encephalopathy. Status post cardiac arrest. Acute diastolic heart failure. New onset AFib. Paroxysmal Bradycardia . Acute hypoxic respiratory failure. Acute exacerbation of COPD. Pulmonary hypertension. Transaminitis. HECTOR. Pneumonia. Anemia of chronic disease. Obesity. Rheumatoid arthritis. Gout. Hypertension. Hyperlipidemia. Assessment/Plan Continued all current supportive medical care. Amlodipine, Clonidine. IV antibiotics as ordered. Diuretics with Lasix. IV Labetalol for SBP >150 IV Hydralazine for SBP > 150. GI prophylactics. Vasopressors for hemodynamic support. Additional plan as per the hospital course. Critical care time of 45 minutes provided to include time spent evaluation of patient at bedside, when appropriate patient/family education for diagnosis, treatment plan, review of pertinent medical information and discussion of care with specialty providers and PCP. Mechanical ventilator parameters, treatment and adjustments have personally been reviewed by me and treatment plan by front maker has also been reviewed. Dietary Evaluation Review Recommendations by RD: Protein Supplementation Comments: 1) Increase TF rate from 30 mL/hr to 35 mL/hr. Initiate Pro-Stat @ 30 mL bid. Goal rate (including Pro-Stat) will provide 1208 kcals, 77g Pro, and 1178 mL free H2O (including flushes) per 24 hrs. Goal rate will meet ~ 100% estimated daily energy needs and ~94% estimated daily protein needs 2) Initiate vitamin C @ 500 mg and zinc sulfate @ 220 mg qd for 7 days 3) Advance to cardiac diet when medically feasible, pending APPLICATIONS ADMINISTRATOR approval 4) F/u with cardiology and pulmonology 5) Continue to monitor I&O, labs, and skin integrity Expected Outcomes/Goals: 1) appetite and labs to improve 2) diet to advance 3) f/u in 2-3 Interpretation of weight loss: up to 20% in 1 year Plan discussed with: ASHLEY Waggoner MD Aug 31, 2024 13:11
--- NOTE | 2024-08-31 19:32 | DVHPN2 ---
Progress Note - Dictate Date Seen: Aug 31, 2024 Medical Necessity Reason Pt with a Central, PICC or Fol: Yes The following are medically ne: Central Line Reason for vigil catheter: Strict I&O Subjective Patient seen and examined at bedside. S/p trach, mechanical ventilator. Overnight events reviewed. vital signs Vital Sign Date Time Temp Pulse Resp B/P (MAP) Pulse Ox O2 Delivery O2 Flow Rate FiO2 08/31/24 18:45 93 21 122/85 (97) 98 08/31/24 18:29 30 08/31/24 18:29 Mechanical Ventilator+ 08/31/24 16:00 98.9 98.9 Total Intake and Output 08/30/24 08/30/24 08/31/24 15:00 23:00 07:00 Intake Total 100 ml 0 ml 120 ml Output Total 400 ml 450 ml Balance 100 ml -400 ml -330 ml medications Current Medications Medications Dose Ordered Sig/Kristen Route Start Time Stop Time Status Last Admin Dose Admin Ondansetron HCl 4 mg Q4HP PRN IV 08/11/24 13:00 Docusate Sodium 100 mg BIDPRN PRN PO 08/11/24 13:00 Acetaminophen 650 mg Q6HP PRN PO 08/11/24 13:00 Albuterol 2.5 mg Q6HWA NEB 08/11/24 18:00 08/31/24 18:28 2.5 MG Ipratropium [place] 0.5 mg Q6HWA NEB 08/11/24 18:00 08/31/24 18:28 0.5 MG Albuterol 2.5 mg Q2HPRN PRN NEB 08/11/24 20:45 08/20/24 10:09 2.5 MG Ipratropium [place] 0.5 mg Q2HPRN PRN NEB 08/11/24 20:45 08/20/24 10:09 0.5 MG Pantoprazole Sodium 40 mg DAILY IV 08/13/24 10:00 08/31/24 10:03 40 MG Hydralazine HCl 10 mg Q6HP PRN IV 08/15/24 15:30 08/24/24 18:01 10 MG Labetalol HCl 20 mg Q2HPRN PRN IV 08/19/24 15:15 08/20/24 06:20 20 MG Sodium Chloride 10 ml QSHIFT@10,22 IV 08/20/24 22:00 08/31/24 10:03 10 ML Diagnostic Test (Pha) 1 strip ACHS 08/23/24 17:00 08/31/24 17:16 1 STRIP Insulin Human Regular ACHS SC 08/23/24 17:00 08/29/24 22:38 2 UNITS Dextrose 50 ml UD PRN IV 08/23/24 14:15 Bisacodyl 10 mg QHSP PRN GA 08/24/24 14:15 Potassium Chloride 100 ml @ 50 mls/hr Q2H IV 08/24/24 22:00 08/25/24 01:59 UNV Ertapenem 1 gm/ Sodium Chloride 50 ml @ 100 mls/hr 1400 IV 08/25/24 14:00 08/31/24 13:08 100 MLS/HR Enteral Nutritional Formula 1,000 ml 35ML/HR GT 08/25/24 12:00 Amino Acid Protein 30 ml BID GT 08/25/24 22:00 08/30/24 22:32 30 ML Prednisone 10 mg DAILY NG 08/27/24 10:00 08/31/24 09:58 10 MG Lorazepam 1 mg ONCE PRN IV 08/27/24 10:00 Carbamide Peroxide 5 drop Q12H EACH EAR 08/27/24 18:00 08/31/24 17:48 5 DROP Norepinephrine Bitartrate 250 ml @ 3.75 mls/hr Q24H IV 08/30/24 06:45 08/30/24 06:58 3.75 MLS/HR Furosemide 20 mg DAILY IV 08/31/24 10:00 08/31/24 10:03 20 MG Purified Water 200 ml Q6HR GT 08/31/24 12:00 08/31/24 17:48 200 ML Enoxaparin Sodium 40 mg DAILY SC 08/31/24 10:00 08/31/24 10:01 40 MG objective Gen.: Patient lying in bed in medical ICU. On mechanical ventilator. S/p trach Head: Normocephalic, atraumatic. Eyes: PERRLA. Ears: Normal external anatomy. Throat: Endotracheal tube and orogastric tube in place. Neck: Trach in place. Chest: Transmitted breath sounds bilaterally. Decreased air entry bilaterally. No wheezing. Bibasilar crackles. Cardiovascular: Positive S1, positive S2. Regular rate and rhythm. Abdomen: Positive bowel sounds in all 4 quadrants. Soft, nontender, nondistended. : Vigil in place. Normal external genitalia. Rectal: Deferred. Skin: Warm, dry. Intact. Extremities: 2+ radial pulses bilaterally. No lower extremity edema. Neuro: Off sedation laboratory and microbiology Laboratory Tests 08/31/24 04:25 08/30/24 13:53 Test 08/31/24 04:25 Range/Units Serum Glucose 130 H 74-106 mg/dL Assessment/Plan Impression: Acute hypoxic respiratory failure Acute hypercarbic respiratory failure On mechanical ventilator S/p tracheostomy Acute metabolic encephalopathy Shock, septic vs cardiogenic Bilateral pneumonia Obesity BMI 36.1 Mucous plugging Atelectasis Pulmonary hypertension, RVSP 51 mmHg (03/2024) COPD, Moderate obstructive ventilatory defect Reduced DLCO s/p cardiac arrest with ROSC Events: S/p trach Vent settings; RR 16, tidal volume 400, PEEP 5, FiO2 30% Continue trach care Remains off sedation. Off Levophed, hemodynamically stable. Pending PEG tube. Continue antibiotics Continue bronchodilators Accu-Cheks Diurese PRN Monitor renal function Tube feeds for nutritional support Plan to transfer to LTAC. Labs and imaging reviewed. Rest of plan as noted below. Plan: Patient on mechanical ventilator. S/p trach Vent settings; RR 16, tidal volume 400, PEEP 5, FiO2 30% Trach care Titrate FIO2 to keep O2 saturation above 90%. VAP bundle. Daily ABG and CXR while intubated Off sedation S/p therapeutic bronchoscopy on 08/12/24, removed mucous plugging from L6-L10 and R1-R3. S/p central line and arterial line placement See separate procedure notes for details of procedures. Pressors as necessary for hemodynamic support Titrate to keep mean arterial pressure greater than 65 mmHg Continue antibiotics. Accu-Cheks, ISS PRN Monitor renal function Monitor electrolytes. Supplement as necessary. Monitor ins and outs. GI prophylaxis. DVT prophylaxis. Prognosis: Poor given patient's multiple co-morbidities. Condition: Critical Rest of plan per hospitalist and other consultants. A total of 35 minutes of critical care time was spent reviewing the patient record, examining the patient, making a diagnostic and therapeutic plan, discussing this plan with the medical personnel, following up on diagnostic studies and following the patient for clinical stability excluding any and all procedures. At least 50% of this time was spent in direct, [id number] contact. Thank you, Dr. Strickland, for allowing me to participate in this patient's care. Further recommendations will depend on the patient's clinical course. Please do not hesitate to contact me if you have any questions or concerns. This medical document was created using an electronic medical record system with [employer] dictation system. Although these documentations are being carefully reviewed, there may still be some phonetic and typographical changes. The errors are purely typographical, due to imperfection on the software program, and do not reflect any compromise in the patient's medical care. Dietary Evaluation Review Recommendations by RD: Protein Supplementation Comments: 1) Increase TF rate from 30 mL/hr to 35 mL/hr. Initiate Pro-Stat @ 30 mL bid. Goal rate (including Pro-Stat) will provide 1208 kcals, 77g Pro, and 1178 mL free H2O (including flushes) per 24 hrs. Goal rate will meet ~ 100% estimated daily energy needs and ~94% estimated daily protein needs 2) Initiate vitamin C @ 500 mg and zinc sulfate @ 220 mg qd for 7 days 3) Advance to cardiac diet when medically feasible, pending PERINATOLOGY PHYSICIAN approval 4) F/u with cardiology and pulmonology 5) Continue to monitor I&O, labs, and skin integrity Expected Outcomes/Goals: 1) appetite and labs to improve 2) diet to advance 3) f/u in 2-3 Interpretation of weight loss: up to 20% in 1 year Plan discussed with: Other (KIKO Pang) Critical Care Time(min): 35 EDITH ANSARI MD Aug 31, 2024 19:32
[2024-09-01] VITALS (94 sets, daily range): BP systolic 108–168; BP diastolic 61–111; PULSE 12–120; RESP 15–23; TEMP 98–99.5; O2SAT 95–100
--- NOTE | 2024-09-01 05:20 | DVH ---
EXAM: XR Chest, 1 View CLINICAL INDICATION: pna TECHNIQUE: Frontal view of the chest. COMPARISON: XY CHEST PORTABLE on DOS: 08/31/24, XY CHEST PORTABLE on DOS: 08/30/24, XY CHEST PORTABLE o n DOS: 08/29/24, XY CHEST PORTABLE on DOS: 08/28/24, XY CHEST PORTABLE on DOS: 08/27/24 FINDINGS: LUNGS AND PLEURAL SPACES: See below. HEART: Cardiomegaly with mild congestion. MEDIASTINUM: Unremarkable. Normal mediastinal contour. BONES/JOINTS: Unremarkable. No acute fracture. TUBES, LINES AND DEVICES: Tracheostomy tube in satisfactory position. The endotracheal tube (ETT) is in satisfactory position. OTHER FINDINGS: . IMPRESSION: Cardiomegaly with mild congestion.
[2024-09-01 05:43] LABS: Carbon Dioxide 30 mmol/L (20-31)
[2024-09-01 05:44] LABS: Anion Gap 10 (5-15); Potassium 3.5 mmol/L (3.5-5.1)
[2024-09-01 05:45] LABS: Calcium 9.4 mg/dL (8.7-10.4)
[2024-09-01 05:50] LABS: BUN/Creatinine Ratio 33.7 (10.0-20.0)
[2024-09-01 05:51] LABS: Basophils # (auto) 0 10 ^3/uL (0-0.2); Basophils % (auto) 0.4 % (0.0-2.0); Eosinophils # (auto) 0.1 10 ^3/uL (0-0.8); Eosinophils % (auto) 0.9 % (0.0-7.0); Hematocrit 32.1 % (36.0-46.0); Hemoglobin 10.5 g/dL (12.2-16.2); Lymphocytes # (auto) 1.3 10 ^3/uL (0.4-5.4); Lymphocytes % (auto) 11.9 % (10.0-50.0); Mean Corpuscular Hemoglobin 27.9 pg (28.0-32.0); Mean Corpuscular Hgb Conc. 32.7 g/dL (32.0-36.0); Mean Corpuscular Volume 85.3 fL (80.0-100.0); Monocytes # (auto) 0.8 10 ^3/uL (0-1.3); Monocytes % (auto) 6.9 % (0.0-12.0); Neutrophils # (auto) 8.8 10 ^3/uL (1.6-8.6); Neutrophils % (auto) 79.9 % (37.0-80.0); Platelet Count (auto) 121 10^3/uL (140-450); Red Blood Cells 3.76 10^6/uL (4.0-5.20)
[2024-09-01 06:27] LABS: Blood Urea Nitrogen 32 mg/dL (9-23); Chloride 109 mmol/L (98-107); Glucose 130 mg/dL (74-106); Sodium 149 mmol/L (136-145)
[2024-09-01 07:30] LABS: Base Excess 3.7 mmol/L (-2.0-3.0)
--- NOTE | 2024-09-01 09:54 | DVHPN2 ---
Progress Note - Dictate Date Seen: Sep 01, 2024 Medical Necessity Reason Pt with a Central, PICC or Fol: Yes The following are medically ne: Central Line Reason for vigil catheter: Strict I&O Subjective Ms. Recinos is a 73 years old female with a history of hypertension, dyslipidemia, coronary artery disease, heart attack, congestive heart failure, asthma, COPD on home oxygen, gout, anemia, the patient was admitted found [facility] [place] [facility] on 08/11/2024 with a chief company of shortness of breath I have seen and examined the patient, I have talked to her nurse. Her son-in-law is in the room with her. Her eyes open, sometimes rolling from [id number], she tracks sometimes, she occasionally has some facial expression when she heard her daughter's voice in the cell phone but not every. Her son claimed the patient was responsive to them yesterday. She does not move her extremities (RN: She moved the right arm) ABG, 08/12/2024: Respiratory acidosis, hypoxia WBC/HB/PLT/MCV, 08/12/2024: 7.2/11.9/302/85.7, 08/19/2024: 13.9/12.9/167/86.5 CMP, 08/12/2024: Unremarkable HGB A1c, 04/11/2024: 500 TBI/AST/ALT/AP, 08/19/2024: 0.19/61/108/86 TG/HDL/LDL/HDL, 05/2023: 101/2026/186/45 Vitamin B12, 03/2024: 1161 TSH, 03/2024: 1.39 EEG 08/13/2024: Remarkably abnormal Extremity venous study, 08/13/2024: No evidence of right or left femoropopliteal venous thrombosis. Chest x-ray, 08/12/2024: Left central venous catheter overlies the left upper chest and may be not position. Clinical correlation advised. Endotracheal tube in satisfactory position. Left central venous catheter in uncertain position Chest x-ray, 08/15/24: Hazy bilateral opacities are unchanged CXR, 08/26/2024: Pulmonary venous congestion CT head, 08/12/2024: Very mild cortical atrophy otherwise unremarkable study CT head, 08/17/2024: No acute intracranial abnormality CT head, 08/24/2024: 1. No acute intracranial hemorrhage. 2. No CT findings of territorial ischemia CTA chest, 08/13/2024: Grossly enlarged pulmonary arteries underlying pulmonary arterial hypertension is suspected no pulmonary embolus There are bilateral infiltrates in the lung bases MRI brain, 07/17/24: No acute intracranial pathology MRI brain, 08/28/2024: No evidence of acute infarction, intracranial hemorrhage, mass effect or hydrocephalus. Mild changes of chronic microvascular ischemic disease. 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 Right mastoid effusion. vital signs Vital Sign Date Time Temp Pulse Resp B/P (MAP) Pulse Ox O2 Delivery O2 Flow Rate FiO2 09/01/24 08:45 91 16 131/85 (100) 99 09/01/24 08:12 30 09/01/24 08:00 98.0 98.0 09/01/24 08:00 Mechanical Ventilator+ Total Intake and Output 08/31/24 08/31/24 09/01/24 15:00 23:00 07:00 Intake Total 40 ml Output Total 1000 ml 350 ml Balance -960 ml -350 ml medications Current Medications Medications Dose Ordered Sig/Kristen Route Start Time Stop Time Status Last Admin Dose Admin Ondansetron HCl 4 mg Q4HP PRN IV 08/11/24 13:00 Docusate Sodium 100 mg BIDPRN PRN PO 08/11/24 13:00 Acetaminophen 650 mg Q6HP PRN PO 08/11/24 13:00 Albuterol 2.5 mg Q6HWA NEB 08/11/24 18:00 09/01/24 05:50 2.5 MG Ipratropium [place] 0.5 mg Q6HWA NEB 08/11/24 18:00 09/01/24 05:50 0.5 MG Albuterol 2.5 mg Q2HPRN PRN NEB 08/11/24 20:45 08/20/24 10:09 2.5 MG Ipratropium [place] 0.5 mg Q2HPRN PRN NEB 08/11/24 20:45 08/20/24 10:09 0.5 MG Pantoprazole Sodium 40 mg DAILY IV 08/13/24 10:00 08/31/24 10:03 40 MG Hydralazine HCl 10 mg Q6HP PRN IV 08/15/24 15:30 08/24/24 18:01 10 MG Labetalol HCl 20 mg Q2HPRN PRN IV 08/19/24 15:15 08/20/24 06:20 20 MG Sodium Chloride 10 ml QSHIFT@10,22 IV 08/20/24 22:00 08/31/24 21:45 10 ML Diagnostic Test (Pha) 1 strip ACHS 08/23/24 17:00 09/01/24 06:35 1 STRIP Insulin Human Regular ACHS SC 08/23/24 17:00 08/29/24 22:38 2 UNITS Dextrose 50 ml UD PRN IV 08/23/24 14:15 Bisacodyl 10 mg QHSP PRN NH 08/24/24 14:15 Potassium Chloride 100 ml @ 50 mls/hr Q2H IV 08/24/24 22:00 08/25/24 01:59 UNV Ertapenem 1 gm/ Sodium Chloride 50 ml @ 100 mls/hr 1400 IV 08/25/24 14:00 08/31/24 13:08 100 MLS/HR Enteral Nutritional Formula 1,000 ml 35ML/HR GT 08/25/24 12:00 Amino Acid Protein 30 ml BID GT 08/25/24 22:00 08/31/24 21:45 30 ML Prednisone 10 mg DAILY NG 08/27/24 10:00 08/31/24 09:58 10 MG Lorazepam 1 mg ONCE PRN IV 08/27/24 10:00 Carbamide Peroxide 5 drop Q12H EACH EAR 08/27/24 18:00 09/01/24 05:56 5 DROP Norepinephrine Bitartrate 250 ml @ 3.75 mls/hr Q24H IV 08/30/24 06:45 08/30/24 06:58 3.75 MLS/HR Furosemide 20 mg DAILY IV 08/31/24 10:00 08/31/24 10:03 20 MG Purified Water 200 ml Q6HR GT 08/31/24 12:00 09/01/24 00:28 200 ML Enoxaparin Sodium 40 mg DAILY SC 08/31/24 10:00 08/31/24 10:01 40 MG objective The patient is well-nourished and well-developed with no distress. MENTAL STATUS: Subjective, CRANIAL NERVES: pupils are equal round and reactive to light briskly, normal external eye movement, normal sensation and motor examination in the lateral trigeminal nerve distribution, no facial weakness SENSATION: Responses to pain stimuli. MOTOR: Normal tone in the upper and lower extremity. Normal muscle bulk. No fasciculations. No spontaneous extremity movement REFLEXES: Deep tendon reflexes are symmetrical. No pathological reflexes. CEREBELLAR/COORDINATION: Deferred GAIT/STATION: deferred. laboratory and microbiology Laboratory Tests 09/01/24 05:11 Test 09/01/24 05:11 Range/Units Serum Glucose 130 H 74-106 mg/dL Problem List Coma, resolved Hypoxic encephalopathy Metabolic encephalopathy Toxic encephalopathy Cardiopulmonary arrest Respiratory failure Hypoxia Status post CPR Sepsis Pneumonia Acidosis Seizure-like activity to rule out seizure attack Reported anisocoria with right-sided slightly bigger on 08/14/2024, evident physical examination on 08/19/2024 ? Vegetative status Assessment/Plan Monitoring Supportive treatment ICU care Follow-up labs Respiratory support Stabilize vitals Antibiotics Oxygen DVT prophylaxis GI prophylaxis Up to chair Physical therapy Need a feeding tube More recommendation per clinical course This medical document was created using an electronic medical record system with [employer] dictation system. Although this document has been carefully reviewed, there may still be some phonetic and typographical errors. These areas are purely typographical due to imperfections of the software programs, and do not reflect any compromise in the patient's medical care. Prognosis poor Dietary Evaluation Review Recommendations by RD: Protein Supplementation Comments: 1) Increase TF rate from 30 mL/hr to 35 mL/hr. Initiate Pro-Stat @ 30 mL bid. Goal rate (including Pro-Stat) will provide 1208 kcals, 77g Pro, and 1178 mL free H2O (including flushes) per 24 hrs. Goal rate will meet ~ 100% estimated daily energy needs and ~94% estimated daily protein needs 2) Initiate vitamin C @ 500 mg and zinc sulfate @ 220 mg qd for 7 days 3) Advance to cardiac diet when medically feasible, pending PAPER CONE MAKER approval 4) F/u with cardiology and pulmonology 5) Continue to monitor I&O, labs, and skin integrity Expected Outcomes/Goals: 1) appetite and labs to improve 2) diet to advance 3) f/u in 2-3 Interpretation of weight loss: up to 20% in 1 year Plan discussed with: PATRIZIA Gottlieb MD Sep 01, 2024 09:54
--- NOTE | 2024-09-01 15:08 | DVHPN2 ---
Progress Note - Dictate Date Seen: Sep 01, 2024 Medical Necessity Reason Pt with a Central, PICC or Fol: Yes The following are medically ne: Central Line Reason for vigil catheter: Strict I&O Subjective Patient was seen and evaluated in follow up in the ICU. Patient is intubated and sedated on ventilator. FiO2 is30%. Patient is scheduled for PEG tube placement tomorrow. WBC 11, NA 149, BUN 32. Chest x-ray shows cardiomegaly with mild congestion. vital signs Vital Sign Date Time Temp Pulse Resp B/P (MAP) Pulse Ox O2 Delivery O2 Flow Rate FiO2 09/01/24 14:30 101 18 157/93 (114) 98 09/01/24 14:00 30 09/01/24 14:00 Mechanical Ventilator+ 09/01/24 12:00 98.2 98.2 Total Intake and Output 08/31/24 08/31/24 09/01/24 14:59 22:59 06:59 Intake Total 40 ml Output Total 1000 ml 350 ml Balance -960 ml -350 ml medications Current Medications Medications Dose Ordered Sig/Kristen Route Start Time Stop Time Status Last Admin Dose Admin Ondansetron HCl 4 mg Q4HP PRN IV 08/11/24 13:00 Docusate Sodium 100 mg BIDPRN PRN PO 08/11/24 13:00 Acetaminophen 650 mg Q6HP PRN PO 08/11/24 13:00 Albuterol 2.5 mg Q6HWA NEB 08/11/24 18:00 09/01/24 11:10 2.5 MG Ipratropium [place] 0.5 mg Q6HWA NEB 08/11/24 18:00 09/01/24 11:11 0.5 MG Albuterol 2.5 mg Q2HPRN PRN NEB 08/11/24 20:45 08/20/24 10:09 2.5 MG Ipratropium [place] 0.5 mg Q2HPRN PRN NEB 08/11/24 20:45 08/20/24 10:09 0.5 MG Pantoprazole Sodium 40 mg DAILY IV 08/13/24 10:00 09/01/24 09:50 40 MG Hydralazine HCl 10 mg Q6HP PRN IV 08/15/24 15:30 08/24/24 18:01 10 MG Labetalol HCl 20 mg Q2HPRN PRN IV 08/19/24 15:15 08/20/24 06:20 20 MG Sodium Chloride 10 ml QSHIFT@10,22 IV 08/20/24 22:00 09/01/24 09:50 10 ML Diagnostic Test (Pha) 1 strip ACHS 08/23/24 17:00 09/01/24 11:30 1 STRIP Insulin Human Regular ACHS SC 08/23/24 17:00 08/29/24 22:38 2 UNITS Dextrose 50 ml UD PRN IV 08/23/24 14:15 Bisacodyl 10 mg QHSP PRN RI 08/24/24 14:15 Potassium Chloride 100 ml @ 50 mls/hr Q2H IV 08/24/24 22:00 08/25/24 01:59 UNV Ertapenem 1 gm/ Sodium Chloride 50 ml @ 100 mls/hr 1400 IV 08/25/24 14:00 09/01/24 14:12 100 MLS/HR Enteral Nutritional Formula 1,000 ml 35ML/HR GT 08/25/24 12:00 Amino Acid Protein 30 ml BID GT 08/25/24 22:00 08/31/24 21:45 30 ML Prednisone 10 mg DAILY NG 08/27/24 10:00 09/01/24 09:51 10 MG Lorazepam 1 mg ONCE PRN IV 08/27/24 10:00 Carbamide Peroxide 5 drop Q12H EACH EAR 08/27/24 18:00 09/01/24 05:56 5 DROP Norepinephrine Bitartrate 250 ml @ 3.75 mls/hr Q24H IV 08/30/24 06:45 08/30/24 06:58 3.75 MLS/HR Furosemide 20 mg DAILY IV 08/31/24 10:00 09/01/24 09:51 20 MG Purified Water 200 ml Q6HR GT 08/31/24 12:00 09/01/24 12:14 200 ML Enoxaparin Sodium 40 mg DAILY SC 08/31/24 10:00 08/31/24 10:01 40 MG objective GENERAL: Intubated on ventilator. LUNGS: Decreased breath sounds. CARDIOVASCULAR: Heart sounds are good. ABDOMEN: Soft. laboratory and microbiology Laboratory Tests 09/01/24 05:11 Test 09/01/24 05:11 Range/Units Serum Glucose 130 H 74-106 mg/dL Problem List Metabolic encephalopathy/toxic encephalopathy/hypoxic encephalopathy. Status post cardiac arrest. Acute diastolic heart failure. New onset AFib. Paroxysmal Bradycardia . Acute hypoxic respiratory failure. Acute exacerbation of COPD. Pulmonary hypertension. Transaminitis. HECTOR. Pneumonia. Anemia of chronic disease. Obesity. Rheumatoid arthritis. Gout. Hypertension. Hyperlipidemia. Assessment/Plan Continued all current supportive medical care. Amlodipine, Clonidine. IV antibiotics as ordered. Diuretics with Lasix. IV Labetalol for SBP >150 IV Hydralazine for SBP > 150. GI prophylactics. Vasopressors for hemodynamic support. Additional plan as per the hospital course. Critical care time of 45 minutes provided to include time spent evaluation of patient at bedside, when appropriate patient/family education for diagnosis, treatment plan, review of pertinent medical information and discussion of care with specialty providers and PCP. Mechanical ventilator parameters, treatment and adjustments have personally been reviewed by me and treatment plan by airconditioning engineer has also been reviewed. Dietary Evaluation Review Recommendations by RD: Protein Supplementation Comments: 1) Increase TF rate from 30 mL/hr to 35 mL/hr. Initiate Pro-Stat @ 30 mL bid. Goal rate (including Pro-Stat) will provide 1208 kcals, 77g Pro, and 1178 mL free H2O (including flushes) per 24 hrs. Goal rate will meet ~ 100% estimated daily energy needs and ~94% estimated daily protein needs 2) Initiate vitamin C @ 500 mg and zinc sulfate @ 220 mg qd for 7 days 3) Advance to cardiac diet when medically feasible, pending SALES OPERATIONS SPECIALIST approval 4) F/u with cardiology and pulmonology 5) Continue to monitor I&O, labs, and skin integrity Expected Outcomes/Goals: 1) appetite and labs to improve 2) diet to advance 3) f/u in 2-3 Interpretation of weight loss: up to 20% in 1 year Plan discussed with: ASHLEY Waggoner MD Sep 01, 2024 15:08
[2024-09-01] MEDS: D5W 5% 1,000 ML IV SCH (20:08)
--- NOTE | 2024-09-01 21:15 | DVHPN2 ---
Progress Note - Dictate Date Seen: Sep 01, 2024 Medical Necessity Reason Pt with a Central, PICC or Fol: Yes The following are medically ne: Central Line Reason for vigil catheter: Strict I&O Subjective Patient is still on ventilator S/P tracheostomy Patient was started on tube feedings at 40 mL/hour which she is tolerating Lovenox was put on hold vital signs Vital Sign Date Time Temp Pulse Resp B/P (MAP) Pulse Ox O2 Delivery O2 Flow Rate FiO2 09/01/24 20:32 100 17 137/86 (103) 98 30 09/01/24 20:00 99.5 99.5 09/01/24 20:00 Mechanical Ventilator+ Total Intake and Output 08/31/24 08/31/24 09/01/24 15:00 23:00 07:00 Intake Total 40 ml Output Total 1000 ml 350 ml Balance -960 ml -350 ml medications Current Medications Medications Dose Ordered Sig/Kristen Route Start Time Stop Time Status Last Admin Dose Admin Ondansetron HCl 4 mg Q4HP PRN IV 08/11/24 13:00 Docusate Sodium 100 mg BIDPRN PRN PO 08/11/24 13:00 Acetaminophen 650 mg Q6HP PRN PO 08/11/24 13:00 Albuterol 2.5 mg Q6HWA NEB 08/11/24 18:00 09/01/24 18:18 2.5 MG Ipratropium [place] 0.5 mg Q6HWA NEB 08/11/24 18:00 09/01/24 18:18 0.5 MG Albuterol 2.5 mg Q2HPRN PRN NEB 08/11/24 20:45 08/20/24 10:09 2.5 MG Ipratropium [place] 0.5 mg Q2HPRN PRN NEB 08/11/24 20:45 08/20/24 10:09 0.5 MG Pantoprazole Sodium 40 mg DAILY IV 08/13/24 10:00 09/01/24 09:50 40 MG Hydralazine HCl 10 mg Q6HP PRN IV 08/15/24 15:30 08/24/24 18:01 10 MG Labetalol HCl 20 mg Q2HPRN PRN IV 08/19/24 15:15 08/20/24 06:20 20 MG Sodium Chloride 10 ml QSHIFT@ IV 08/20/24 22:00 09/01/24 09:50 10 ML Diagnostic Test (Pha) 1 strip ACHS 08/23/24 17:00 09/01/24 16:49 1 STRIP Insulin Human Regular ACHS SC 08/23/24 17:00 08/29/24 22:38 2 UNITS Dextrose 50 ml UD PRN IV 08/23/24 14:15 Bisacodyl [address] 08/24/24 14:15 Potassium Chloride 100 ml @ 50 mls/hr Q2H IV 08/24/24 22:00 08/25/24 01:59 UNV Ertapenem 1 gm/ Sodium Chloride 50 ml @ 100 mls/hr 1400 IV 08/25/24 14:00 09/01/24 14:12 100 MLS/HR Enteral Nutritional Formula 1,000 ml 35ML/HR GT 08/25/24 12:00 Amino Acid Protein 30 ml BID GT 08/25/24 22:00 08/31/24 21:45 30 ML Prednisone 10 mg DAILY NG 08/27/24 10:00 09/01/24 09:51 10 MG Lorazepam 1 mg ONCE PRN IV 08/27/24 10:00 Carbamide Peroxide 5 drop Q12H EACH EAR 08/27/24 18:00 09/01/24 18:00 5 DROP Norepinephrine Bitartrate 250 ml @ 3.75 mls/hr Q24H IV 08/30/24 06:45 08/30/24 06:58 3.75 MLS/HR Furosemide 20 mg DAILY IV 08/31/24 10:00 09/01/24 09:51 20 MG Purified Water 200 ml Q6HR GT 08/31/24 12:00 09/01/24 18:00 200 ML Enoxaparin Sodium 40 mg DAILY SC 08/31/24 10:00 08/31/24 10:01 40 MG Dextrose 1,000 ml @ 75 mls/hr [id number] IV 09/01/24 17:45 09/01/24 20:08 75 MLS/HR objective VITAL SIGNS: Afebrile, stable signs. Intubated.sedated CHEST AND LUNGS: b/l coarse breath sounds HEART: Within normal limits.S1S2 rrr ABDOMEN: Soft.NT ND Ext no c/c/e laboratory and microbiology Laboratory Tests 09/01/24 05:11 Test 09/01/24 05:11 Range/Units Serum Glucose 130 H 74-106 mg/dL Problems(with codes): (1) Pulmonary vascular congestion (2) Ventilator dependence (3) Pneumonia (4) CHF exacerbation (5) COPD exacerbation (6) Acute respiratory failure Prognosis Plan Patient will be scheduled for a possible PEG tube placement tomorrow afternoon We will keep her NPO after 4:00 a.m. and hold tube feedings at that time Hold Lovenox Monitor labs I will follow up patient with you Dietary Evaluation Review Recommendations by RD: Protein Supplementation Comments: 1) Increase TF rate from 30 mL/hr to 35 mL/hr. Initiate Pro-Stat @ 30 mL bid. Goal rate (including Pro-Stat) will provide 1208 kcals, 77g Pro, and 1178 mL free H2O (including flushes) per 24 hrs. Goal rate will meet ~ 100% estimated daily energy needs and ~94% estimated daily protein needs 2) Initiate vitamin C @ 500 mg and zinc sulfate @ 220 mg qd for 7 days 3) Advance to cardiac diet when medically feasible, pending DAY HABILITATION SPECIALIST approval 4) F/u with cardiology and pulmonology 5) Continue to monitor I&O, labs, and skin integrity Expected Outcomes/Goals: 1) appetite and labs to improve 2) diet to advance 3) f/u in 2-3 Interpretation of weight loss: up to 20% in 1 year Plan discussed with: Other (DELORIS Nurse) HANSA OLMOS MD Sep 01, 2024 21:15
--- NOTE | 2024-09-01 21:34 | DVHPNRES ---
Progress Note Date Seen: Sep 01, 2024 Resident Creating Document: CRISTIANA KIRKLAND RESIDENT Medical Necessity Reason Pt with a Central, PICC or Fol: Yes The following are medically ne: Central Line Reason for vigil catheter: Strict I&O Subjective Review of Systems Patient is a 73-year-old female with a past medical history of asthma, COPD on home oxygen at 2 L/min, coronary artery disease with a RI, CHF, pulmonary hypertension, hyperlipidemia, rheumatoid arthritis presented to the hospital with a chief complaint of shortness of breath. Patient reported having chest pain and shortness of breath for few days before coming into the hospital. She was admitted a month ago and was diagnosed with pneumonia, following discharge patient was sent to [facility] for rehabilitation. Initial chest x-ray showed bibasilar airspace opacities suspicious for pneumonia. Patient was [facility] with IV antibiotics, breathing treatments, IV steroids. One day after admission patient went into cardiopulmonary arrest , following which CPR was initiated and ROSC was achieved and patient was shifted to ICU level of care. While in the ICU patient was treated for COPD exacerbation likely due to pneumonia with a mucous plugging following which bronchoscopy was done. Patient was tried to wean off mechanical ventilatory support with multiple spontaneous breathing CPAP trials which she failed and continues to be on ventilator support. Tracheostomy was done on August 27. Patient has been off sedation since July. Patient is currently awaiting PEG tube placement and discharge to LTAC Past medical history: COPD, asthma, pulmonary hypertension, CAD, RI, hypertension, hyperlipidemia, diabetes mellitus type 2, COPD, asthma, gout, rheumatoid arthritis, anemia Past surgical history: tubal ligation, right foot surgery, tonsillectomy, bilateral total knee replacement, right eye surgery, Social history: Denies smoking, alcohol, drug use Review of systems Patient seen and examined at the bedside On assessment of the mental status patient had spontaneous eye opening but did not respond to voice commands or painful stimuli. Patient remained hemodynamically stable with the episodes of elevated blood pressure highest recorded 168/94 mmHg with intermittent episodes of tachycardia, no fevers and currently not on any vasopressor support Urine output 1100 mL with a fluid balance of -1300ml over 24 hours and had 1 bowel movement On talking to patient's son, reports that yesterday he noted some movements and the patient tracked family members Objective vital signs Vital Sign Date Time Temp Pulse Resp B/P (MAP) Pulse Ox O2 Delivery O2 Flow Rate FiO2 09/01/24 18:30 96 17 144/84 (104) 99 09/01/24 18:00 Mechanical Ventilator+ 30 30 09/01/24 16:00 99.0 99.0 Total Intake and Output 08/31/24 08/31/24 09/01/24 15:00 23:00 07:00 Intake Total 40 ml Output Total 1000 ml 350 ml Balance -960 ml -350 ml medications Current Medications Medications Dose Ordered Sig/Kristen Route Start Time Stop Time Status Last Admin Dose Admin Ondansetron HCl 4 mg Q4HP PRN IV 08/11/24 13:00 Docusate Sodium 100 mg BIDPRN PRN PO 08/11/24 13:00 Acetaminophen 650 mg Q6HP PRN PO 08/11/24 13:00 Albuterol 2.5 mg Q6HWA NEB 08/11/24 18:00 09/01/24 18:18 2.5 MG Ipratropium [place] 0.5 mg Q6HWA NEB 08/11/24 18:00 09/01/24 18:18 0.5 MG Albuterol 2.5 mg Q2HPRN PRN NEB 08/11/24 20:45 08/20/24 10:09 2.5 MG Ipratropium [place] 0.5 mg Q2HPRN PRN NEB 08/11/24 20:45 08/20/24 10:09 0.5 MG Pantoprazole Sodium 40 mg DAILY IV 08/13/24 10:00 09/01/24 09:50 40 MG Hydralazine HCl 10 mg Q6HP PRN IV 08/15/24 15:30 08/24/24 18:01 10 MG Labetalol HCl 20 mg Q2HPRN PRN IV 08/19/24 15:15 08/20/24 06:20 20 MG Sodium Chloride 10 ml QSHIFT@10,22 IV 08/20/24 22:00 09/01/24 09:50 10 ML Diagnostic Test (Pha) 1 strip ACHS 08/23/24 17:00 09/01/24 16:49 1 STRIP Insulin Human Regular ACHS SC 08/23/24 17:00 08/29/24 22:38 2 UNITS Dextrose 50 ml UD PRN IV 08/23/24 14:15 Bisacodyl 10 mg QHSP PRN DC 08/24/24 14:15 Potassium Chloride 100 ml @ 50 mls/hr Q2H IV 08/24/24 22:00 08/25/24 01:59 UNV Ertapenem 1 gm/ Sodium Chloride 50 ml @ 100 mls/hr 1400 IV 08/25/24 14:00 09/01/24 14:12 100 MLS/HR Enteral Nutritional Formula 1,000 ml 35ML/HR GT 08/25/24 12:00 Amino Acid Protein 30 ml BID GT 08/25/24 22:00 08/31/24 21:45 30 ML Prednisone 10 mg DAILY NG 08/27/24 10:00 09/01/24 09:51 10 MG Lorazepam 1 mg ONCE PRN IV 08/27/24 10:00 Carbamide Peroxide 5 drop Q12H EACH EAR 08/27/24 18:00 09/01/24 18:00 5 DROP Norepinephrine Bitartrate 250 ml @ 3.75 mls/hr Q24H IV 08/30/24 06:45 08/30/24 06:58 3.75 MLS/HR Furosemide 20 mg DAILY IV 08/31/24 10:00 09/01/24 09:51 20 MG Purified Water 200 ml Q6HR GT 08/31/24 12:00 09/01/24 18:00 200 ML Enoxaparin Sodium 40 mg DAILY SC 08/31/24 10:00 08/31/24 10:01 40 MG Dextrose 1,000 ml @ 75 mls/hr [id number] IV 09/01/24 17:45 09/01/24 20:08 75 MLS/HR Examination Constitutional: Patient has spontaneous eye opening but is unresponsive to vocal or painful stimuli Gen - no pallor, no icterus, no cyanosis, no clubbing, no LAD, no edema . Skin - Patients skin is warm and dry.. HEENT - normocephalic, atraumatic, dry mucous membranes. Neck - full ROM, no LAD, no JVD Pulmonary - B/L equal breath sounds with a minimal basilar crackles, no wheezing cardiovascular - variable S1,S2 heard, no added sounds, no murmurs heard. capillary refill normal <2 secs. GI - soft abdomen, nondistended. Bowel sounds normoactive Neurological - patient on mechanical ventilation, no sedation but delirious with spontaneous eye opening but no responds to vocal or painful stimuli. Gag reflex present, plantar reflex downgoing, pupils equal and reactive laboratory and microbiology Laboratory Tests 09/01/24 05:11 Test 09/01/24 05:11 Range/Units Serum Glucose 130 H 74-106 mg/dL Microbiology Date/Time Source Procedure Growth Status 08/25/24 13:42 Nose MRSA Screen - Final Complete 08/23/24 18:36 Voided Urine Urine Culture - Final Presumptive Nell albicans Complete 08/13/24 04:40 Blood Blood Culture - Final NO GROWTH AFTER 5 DAYS OF INCUBATION. Complete 08/13/24 02:49 Sputum Gram Stain - Final Complete 08/13/24 02:49 Sputum Respiratory Culture - Final Complete Problem List/Assessment/Plan Problem List/Assessment/Plan Neurology # acute metabolic / hypoxic encephalopathy status post cardiopulmonary arrest # ?vegetative status - delirious, spontaneous eye opening but nonresponsive - CT head on 08/12- showed very mild cortical atrophy otherwise unremarkable - MRI brain on 08/14- showed no acute intracranial pathology - repeat MRI brain on 08/28- showed no evidence of acute infarction, intracranial hemorrhage, mass effect or hydrocephalus, mild changes of chronic microvascular ischemic disease, stable configuration of lateral ventricles likely colpocephaly - neurology consulted who assessed the patient with possible vegetative state and recommends continuing supportive treatment Respiratory # acute hypercarbic/hypoxemic respiratory failure status post mechanical ventilation # respiratory alkalosis without compensation # mucus plugging s/p bronchoscopy # pulmonary edema - on mechanical ventilation with a peep 5, FiO2 30%, tidal volume 500 mL, PaO2/FiO2 300 - patient has tracheostomy done on 08/27 which showed left lower lobe atelectasis due to mucus plugging from L6-L10 and R1-R3 - bronchoscopy done on 11/12 - albuterol and ipratropium nebulizer q.6 hours - pending transferred to LTAC - we will try a CPAP trial in the morning tomorrow - Lasix 20 mg IV daily Cardiovascular # S/P cardiopulmonary arrest with a ROSC # Septic shock, improved # hypertensive heart disease with diastolic heart failure # new onset atrial fibrillation # pulmonary hypertension - patient currently not on any vasopressor support and is hemodynamically stable - IV ertapenem - hydralazine q.6 hours PRN for SBP> 160 - patient is going for PEG tube placement tomorrow Nephrology # HECTOR likely due to VMN, resolved # Hypernatremia - free water via NG tube 200 mL per q.6 hours - D5W at 75 mL/hour with a goal of sodium correction 8-10 meq over next 24 hours - Lasix 20 mg IV daily Gastrointestinal # patient pending PEG tube placement tomorrow Infectious disease # UTI # sacral wound - urine culture from 08/23 showed growth of presumptive Nell albicans - blood cultures, respiratory sputum cultures from 08/13 negative for any growth - as of today patient does not have any fevers, WBC count [id number] with 79% neutrophils, patient on steroids - currently on IV ertapenem Endocrinology # type 2 diabetes mellitus with hyperglycemia # obesity -on ISS Musculoskeletal # rheumatoid arthritis # gout -continue current management PICC line left upper arm- placed on 08/20 Vigil's catheter- changed on 08/26 Goals of care discussed with the patient's son for over 25 minutes. Code status full code Critical care time spent: 65 minutes Plan discussed with Dr. Theodore Plan discussed with: Son, Other (RN ( Poly )) My Orders My Orders Orders - CRISTIANA KIRKLAND RESIDENT Procedure Category Date Status Time Cpap Trial For Am ORDERS 09/01/24 Transmitted 10:29 D5w 5% (Dextrose 5%) PHA 09/01/24 In Process 17:45 Dietary Evaluation Review Recommendations by RD: Protein Supplementation Comments: 1) Increase TF rate from 30 mL/hr to 35 mL/hr. Initiate Pro-Stat @ 30 mL bid. Goal rate (including Pro-Stat) will provide 1208 kcals, 77g Pro, and 1178 mL free H2O (including flushes) per 24 hrs. Goal rate will meet ~ 100% estimated daily energy needs and ~94% estimated daily protein needs 2) Initiate vitamin C @ 500 mg and zinc sulfate @ 220 mg qd for 7 days 3) Advance to cardiac diet when medically feasible, pending RESOURCE DIRECTOR approval 4) F/u with cardiology and pulmonology 5) Continue to monitor I&O, labs, and skin integrity Expected Outcomes/Goals: 1) appetite and labs to improve 2) diet to advance 3) f/u in 2-3 Interpretation of weight loss: up to 20% in 1 year CRISTIANA KIRKLAND RESIDENT Sep 01, 2024 21:34
[2024-09-02] VITALS (73 sets, daily range): BP systolic 87–163; BP diastolic 56–97; PULSE 69–107; RESP 13–25; TEMP 98.1–98.8; O2SAT 97–100
[2024-09-02 06:10] LABS: Basophils # (auto) 0.1 10 ^3/uL (0-0.2); Basophils % (auto) 0.4 % (0.0-2.0); Eosinophils # (auto) 0.1 10 ^3/uL (0-0.8); Eosinophils % (auto) 0.9 % (0.0-7.0); Hematocrit 34.2 % (36.0-46.0); Hemoglobin 11.1 g/dL (12.2-16.2); Lymphocytes # (auto) 1.7 10 ^3/uL (0.4-5.4); Lymphocytes % (auto) 12.3 % (10.0-50.0); Mean Corpuscular Hemoglobin 27.8 pg (28.0-32.0); Mean Corpuscular Hgb Conc. 32.6 g/dL (32.0-36.0); Mean Corpuscular Volume 85.3 fL (80.0-100.0); Monocytes # (auto) 0.9 10 ^3/uL (0-1.3); Monocytes % (auto) 6.6 % (0.0-12.0); Neutrophils % (auto) 79.8 % (37.0-80.0); Platelet Count (auto) 115 10^3/uL (140-450); Red Blood Cells 4.01 10^6/uL (4.0-5.20); Red Cell Distribution Width 16.3 % (11.8-14.3); White Blood Cell 13.8 10^3/uL (4.4-10.8)
[2024-09-02 06:40] LABS: Alanine Aminotransferase 36 U/L (7-40); Albumin 3.9 g/dL (3.2-4.8); Anion Gap 8 (5-15); Aspartate Aminotransferase 39 U/L (13-40); BUN/Creatinine Ratio 33.7 (10.0-20.0); Bilirubin, Total 0.8 mg/dL (0.2-1.0); Calcium 9.3 mg/dL (8.7-10.4); Carbon Dioxide 29 mmol/L (20-31); Chloride 107 mmol/L (98-107); Magnesium 2.1 mg/dL (1.6-2.6); Phosphorus 2.8 mg/dL (2.4-5.1); Sodium 144 mmol/L (136-145); Total Protein 5.9 g/dL (5.7-8.2)
[2024-09-02 06:48] LABS: Alkaline Phosphatase 121 U/L (46-116); Blood Urea Nitrogen 30 mg/dL (9-23); Glucose 156 mg/dL (74-106)
[2024-09-02] MEDS: POTASSIUM CHLORIDE 40 MEQ, LIDOCAINE 1% (LOCAL ANESTH.) 4 ML in SODIUM CHL 0.9% 250 ML IV ONE (09:03)
--- NOTE | 2024-09-02 09:14 | DVH ---
CHEST RADIOGRAPH Indication: on mechanical vent Technique: Frontal view of the chest. Comparison: XY CHEST PORTABLE on DOS: 09/01/24, XY CHEST PORTABLE on DOS: 08/31/24, XY CHEST PORTABLE on DOS: 08/30/24, XY CHEST PORTABLE on DOS: 08/29/24, XY CHEST PORTABLE on DOS: 08/28/24, XY CHEST PORTABLE on DOS: 09/01/24 FINDINGS: LUNGS AND PLEURAL SPACES: See below. HEART: Cardiomegaly with mild congestion. MEDIASTINUM: Unremarkable. Normal mediastinal contour. BONES/JOINTS: Unremarkable. No acute fracture. TUBES, LINES AND DEVICES: Tracheostomy tube in satisfactory position. The endotracheal tube (ETT) is in satisfactory position. IMPRESSION: Cardiomegaly with mild congestion.
[2024-09-02 09:31] LABS: Base Excess 2.2 mmol/L (-2.0-3.0)
[2024-09-02] MEDS: D5W 5% 1,000 ML IV SCH (10:00)
--- NOTE | 2024-09-02 10:59 | DVHPN2 ---
Progress Note - Dictate Date Seen: Sep 02, 2024 Medical Necessity Reason Pt with a Central, PICC or Fol: Yes The following are medically ne: Central Line Reason for vigil catheter: Strict I&O Subjective Ms. Recinos is a 73 years old female with a history of hypertension, dyslipidemia, coronary artery disease, heart attack, congestive heart failure, asthma, COPD on home oxygen, gout, anemia, the patient was admitted found her halfway on 08/11/2024 with a chief company of shortness of breath I have seen and examined the patient, I have talked to her nurse. She is awake, eyes closed, she was responsive to verbal stimuli once. No following ABG, 08/12/2024: Respiratory acidosis, hypoxia WBC/HB/PLT/MCV, 08/12/2024: 7.2/11.9/302/85.7, 08/19/2024: 13.9/12.9/167/86.5 CMP, 08/12/2024: Unremarkable HGB A1c, 04/11/2024: 500 TBI/AST/ALT/AP, 08/19/2024: 0.19/61/108/86 TG/HDL/LDL/HDL, 05/2023: 101/2026/186/45 Vitamin B12, 03/2024: 1161 TSH, 03/2024: 1.39 EEG 08/13/2024: Remarkably abnormal Extremity venous study, 08/13/2024: No evidence of right or left femoropopliteal venous thrombosis. Chest x-ray, 08/12/2024: Left central venous catheter overlies the left upper chest and may be not position. Clinical correlation advised. Endotracheal tube in satisfactory position. Left central venous catheter in uncertain position Chest x-ray, 08/15/24: Hazy bilateral opacities are unchanged CXR, 08/26/2024: Pulmonary venous congestion CT head, 08/12/2024: Very mild cortical atrophy otherwise unremarkable study CT head, 08/17/2024: No acute intracranial abnormality CT head, 08/24/2024: 1. No acute intracranial hemorrhage. 2. No CT findings of territorial ischemia CTA chest, 08/13/2024: Grossly enlarged pulmonary arteries underlying pulmonary arterial hypertension is suspected no pulmonary embolus There are bilateral infiltrates in the lung bases MRI brain, 07/17/24: No acute intracranial pathology MRI brain, 08/28/2024: No evidence of acute infarction, intracranial hemorrhage, mass effect or hydrocephalus. Mild changes of chronic microvascular ischemic disease. 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 Right mastoid effusion. vital signs Vital Sign Date Time Temp Pulse Resp B/P (MAP) Pulse Ox O2 Delivery O2 Flow Rate FiO2 09/02/24 10:30 98 21 139/84 (102) 99 09/02/24 10:00 30 09/02/24 10:00 Mechanical Ventilator+ 09/02/24 08:00 98.4 98.4 Total Intake and Output 09/01/24 09/01/24 09/02/24 15:00 23:00 07:00 Intake Total 100 ml 405 ml 600 ml Output Total 1100 ml 300 ml Balance 100 ml -695 ml 300 ml medications Current Medications Medications Dose Ordered Sig/Kristen Route Start Time Stop Time Status Last Admin Dose Admin Ondansetron HCl 4 mg Q4HP PRN IV 08/11/24 13:00 Docusate Sodium 100 mg BIDPRN PRN PO 08/11/24 13:00 Acetaminophen 650 mg Q6HP PRN PO 08/11/24 13:00 Albuterol 2.5 mg Q6HWA NEB 08/11/24 18:00 09/02/24 06:13 2.5 MG Ipratropium [place] 0.5 mg Q6HWA NEB 08/11/24 18:00 09/02/24 06:14 0.5 MG Albuterol 2.5 mg Q2HPRN PRN NEB 08/11/24 20:45 08/20/24 10:09 2.5 MG Ipratropium [place] 0.5 mg Q2HPRN PRN NEB 08/11/24 20:45 08/20/24 10:09 0.5 MG Pantoprazole Sodium 40 mg DAILY IV 08/13/24 10:00 09/02/24 09:36 40 MG Hydralazine HCl 10 mg Q6HP PRN IV 08/15/24 15:30 08/24/24 18:01 10 MG Labetalol HCl 20 mg Q2HPRN PRN IV 08/19/24 15:15 08/20/24 06:20 20 MG Sodium Chloride 10 ml QSHIFT@10,22 IV 08/20/24 22:00 09/02/24 09:37 10 ML Diagnostic Test (Pha) 1 strip ACHS 08/23/24 17:00 09/02/24 06:14 1 STRIP Insulin Human Regular ACHS SC 08/23/24 17:00 09/02/24 06:14 2 UNITS Dextrose 50 ml UD PRN IV 08/23/24 14:15 Bisacodyl 10 mg QHSP PRN NE 08/24/24 14:15 Potassium Chloride 100 ml @ 50 mls/hr Q2H IV 08/24/24 22:00 08/25/24 01:59 UNV Ertapenem 1 gm/ Sodium Chloride 50 ml @ 100 mls/hr 1400 IV 08/25/24 14:00 09/01/24 14:12 100 MLS/HR Enteral Nutritional Formula 1,000 ml 35ML/HR GT 08/25/24 12:00 Amino Acid Protein 30 ml BID GT 08/25/24 22:00 09/01/24 21:39 30 ML Prednisone 10 mg DAILY NG 08/27/24 10:00 09/01/24 09:51 10 MG Lorazepam 1 mg ONCE PRN IV 08/27/24 10:00 Carbamide Peroxide 5 drop Q12H EACH EAR 08/27/24 18:00 09/02/24 06:08 5 DROP Norepinephrine Bitartrate 250 ml @ 3.75 mls/hr Q24H IV 08/30/24 06:45 08/30/24 06:58 3.75 MLS/HR Furosemide 20 mg DAILY IV 08/31/24 10:00 09/02/24 09:37 20 MG Purified Water 200 ml Q6HR GT 08/31/24 12:00 09/02/24 06:07 200 ML Enoxaparin Sodium 40 mg DAILY SC 08/31/24 10:00 08/31/24 10:01 40 MG Dextrose 1,000 ml @ 50 mls/hr Q20H IV 09/02/24 10:00 UNV objective The patient is well-nourished and well-developed with no distress. MENTAL STATUS: Subjective, CRANIAL NERVES: pupils are equal round and reactive to light briskly, normal external eye movement, normal sensation and motor examination in the lateral trigeminal nerve distribution, no facial weakness SENSATION: Responses to pain stimuli. MOTOR: Normal tone in the upper and lower extremity. Normal muscle bulk. No fasciculations. No spontaneous extremity movement REFLEXES: Deep tendon reflexes are symmetrical. No pathological reflexes. CEREBELLAR/COORDINATION: Deferred GAIT/STATION: deferred. laboratory and microbiology Laboratory Tests 09/02/24 04:50 Test 09/02/24 04:50 Range/Units Serum Glucose 156 H 74-106 mg/dL Problem List Coma, resolved Hypoxic encephalopathy Metabolic encephalopathy Toxic encephalopathy Cardiopulmonary arrest Respiratory failure Hypoxia Status post CPR Sepsis Pneumonia Acidosis Seizure-like activity to rule out seizure attack Reported anisocoria with right-sided slightly bigger on 08/14/2024, evident physical examination on 08/19/2024 Assessment/Plan Monitoring Supportive treatment ICU care Follow-up labs Respiratory support Stabilize vitals Antibiotics Oxygen DVT prophylaxis GI prophylaxis Up to chair Physical therapy Need a feeding tube More recommendation per clinical course The patient was may have a poor prognosis for adequate/good meaningful recovery This medical document was created using an electronic medical record system with [employer] dictation system. Although this document has been carefully reviewed, there may still be some phonetic and typographical errors. These areas are purely typographical due to imperfections of the software programs, and do not reflect any compromise in the patient's medical care. Prognosis poor Dietary Evaluation Review Recommendations by RD: Protein Supplementation Comments: 1) Increase TF rate from 30 mL/hr to 35 mL/hr. Initiate Pro-Stat @ 30 mL bid. Goal rate (including Pro-Stat) will provide 1208 kcals, 77g Pro, and 1178 mL free H2O (including flushes) per 24 hrs. Goal rate will meet ~ 100% estimated daily energy needs and ~94% estimated daily protein needs 2) Initiate vitamin C @ 500 mg and zinc sulfate @ 220 mg qd for 7 days 3) Advance to cardiac diet when medically feasible, pending PRESCHOOL TEACHER ASSISTANT approval 4) F/u with cardiology and pulmonology 5) Continue to monitor I&O, labs, and skin integrity Expected Outcomes/Goals: 1) appetite and labs to improve 2) diet to advance 3) f/u in 2-3 Interpretation of weight loss: up to 20% in 1 year Plan discussed with: PATRIZIA Gottlieb MD Sep 02, 2024 10:58
[2024-09-02 14:46] LABS: Chloride 104 mmol/L (98-107)
[2024-09-02 14:48] LABS: Anion Gap 16 (5-15); Calcium 6.8 mg/dL (8.7-10.4); Carbon Dioxide 26 mmol/L (20-31); Potassium 2.8 mmol/L (3.5-5.1); Sodium 146 mmol/L (136-145)
[2024-09-02 14:53] LABS: BUN/Creatinine Ratio 30.3 (10.0-20.0); Blood Urea Nitrogen 20 mg/dL (9-23)
[2024-09-02 14:55] LABS: Glucose 459 mg/dL (74-106)
[2024-09-02] MEDS ORDERED: LIDOCAINE VISCOUS 2% 15ML UD ONE (15:11)
[2024-09-02] MEDS ORDERED: MIDAZOLAM HCL 2MG/2ML 2ml VIAL (1mg/ml) ONE (15:12)
[2024-09-02] MEDS ORDERED: SODIUM CHLORIDE LOCK 10 ML ONE (15:13)
[2024-09-02 15:30] LABS: Chloride 107 mmol/L (98-107); Potassium 3.7 mmol/L (3.5-5.1); Sodium 142 mmol/L (136-145)
[2024-09-02 15:31] LABS: Anion Gap 9 (5-15); Carbon Dioxide 26 mmol/L (20-31)
[2024-09-02 15:36] LABS: BUN/Creatinine Ratio 32.1 (10.0-20.0); Glucose 148 mg/dL (74-106)
[2024-09-02 15:38] LABS: Blood Urea Nitrogen 26 mg/dL (9-23)
[2024-09-02] MEDS: MIDAZOLAM HCL 5 MG/ML-1ML VIAL ONE (16:17)
[2024-09-02] MEDS: fentaNYL CITRATE 100 MCG/2 ML VL ONE (16:17)
[2024-09-02] MEDS: diphenhdrAMINE HCL 50 MG/1 ML VL ONE (16:17)
--- NOTE | 2024-09-02 16:38 | DVHOP2 ---
Operative Report [id number] PEG RUBE PLACEMENT NO COMPLICATIONS EGD BY DR Pao OLMOS,SHELBY Mon MD Sep 02, 2024 16:38
--- NOTE | 2024-09-02 16:52 | DVHOP2 ---
Operative Report DATE OF OPERATION: 09/02/24 PROCEDURE: Upper Endoscopy with PEG tube placement. PREOPERATIVE INDICATION: The patient is a 73 -year-old female undergoing endoscopy for peg tube placement due to ventilator dependence POSTOPERATIVE DIAGNOSES: 1. Patient had a 2-3 cm sliding-type hiatal hernia otherwise normal examination up to the 2nd part of the duodenal with no retained gastric contents 2. Percutaneous gastrostomy tube was placed through the anterior abdominal wall under sterile conditions by Dr. Domenico Drummond using endoscopic assistance and guidance as per standard protocol 3. Repeat endoscopy was performed to confirm adequate placement PROCEDURE PERFORMED BY: Hansa Drummond observation assistant : Dr. Viral Drummond GI NURSE: Jesse SCOPE: Olympus videoendoscope. ASA CLASS: 3 PREOPERATIVE MEDICATIONS: Versed 1 mg, Fentanyl 25 mcg, Benadryl 25 mg; pt on ventilator off sedation; IV Ancef 1 gm I administered moderate sedation throughout this __ minutes procedure. An independent trained observer pushed medications at my direction, and monitored the patient's level of consciousness and physiological status throughout. PROCEDURE IN DETAIL: After obtaining an informed consent, the patient was placed on left lateral decubitus position. The patient was then sedated with the above medications. A bite block was placed between her teeth. The endoscope was then passed through the oropharynx, into the esophagus, and through the stomach and pylorus up to the second part of the duodenum. The endoscope was then withdrawn. The stomach was insufflated and the light from the endoscope could be visualized externally Under sterile condition a percutaneous gastrostomy tube was placed through the anterior abdominal wall into the stomach by Dr. Domenico Drummond as per standard protocol using endoscopic guidance and assistance. A repeat endoscopy was performed to confirm adequate placement The G-tube site was dressed in a sterile fashion. Gastric biopsies were obtained. The endoscope was then withdrawn The patient tolerated the procedure well without difficulty. COMPLICATIONS : None SPECIMENS: Gastric biopsy DISPOSITION: Transfer back to the floor D/C to home PLAN: 1. Await for biopsy result 2. Will place pt on Protonix 40 mg IV daily 3. See postop PEG tube care instructions 4. Discussed with DELORIS nurse HANSA DRUMMOND MD Sep 02, 2024 16:52
--- NOTE | 2024-09-02 17:12 | DVHOP ---
DATE OF SURGERY: 09/02/2024 PREPROCEDURE DIAGNOSES: * Dehydration. * Malnutrition. POSTPROCEDURE DIAGNOSES: * Dehydration. * Malnutrition. PROCEDURE: Placement of PEG in conjunction with Dr. Rosana Drummond's endoscopy. DESCRIPTION OF PROCEDURE: The patient was prepped and draped in the usual sterile fashion in the supine position with the left upper abdomen exposed. Endoscopy was carried out. The light was seen shining through in the left upper abdomen and a suitable spot was selected. Lidocaine was infiltrated and a small incision was applied. The angiocatheter needle was advanced through the incision into the anterior wall of the stomach. The needle was withdrawn. The trocar was left in place. The guidewire was advanced into position. The endoscopy instrumentation grabbed the guidewire, pulled out from the mouth, and the PEG tube was engaged with the wire and pulled back into the mouth and the cuff was situated well within the anterior wall of the stomach and the final connections with the PEG tube were established. Dressings applied and there were no complications. The patient tolerated the procedure well and the endoscopy part will be dictated by Dr. Rosana Drummond. MD MANUEL Cummings/KIZZY/CHRISTIAN TID: [id number] RECEIPT: [id number] cc:
[2024-09-02 17:26] LABS: Urine Bacteria None Seen /hpf (None Seen)
[2024-09-02] MEDS ORDERED: hydrALAZINE HCL 20 MG/ML VL IV PRN (17:45)
[2024-09-02] MEDS: ceFAZolin 1GM/50ML 50 ML IV ONE (17:47)
--- NOTE | 2024-09-02 17:55 | DVHPNRES ---
Progress Note Date Seen: Sep 02, 2024 Resident Creating Document: CRISTIANA KIRKLAND RESIDENT Medical Necessity Reason Pt with a Central, PICC or Fol: Yes The following are medically ne: PICC Line, Vigil Catheter Reason for vigil catheter: Strict I&O Subjective Review of Systems Patient is a 73-year-old female with a past medical history of asthma, COPD on home oxygen at 2 L/min, coronary artery disease with a TN, CHF, pulmonary hypertension, hyperlipidemia, rheumatoid arthritis presented to the hospital with a chief complaint of shortness of breath. Patient reported having chest pain and shortness of breath for few days before coming into the hospital. She was admitted a month ago and was diagnosed with pneumonia, following discharge patient was sent to [facility] for rehabilitation. Initial chest x-ray showed bibasilar airspace opacities suspicious for pneumonia. Patient was initially managed on the [facility] floor with IV antibiotics, breathing treatments, IV steroids. One day after admission patient went into cardiopulmonary arrest , following which CPR was initiated and ROSC was achieved and patient was shifted to ICU level of care. While in the ICU patient was treated for COPD exacerbation likely due to pneumonia with a mucous plugging following which bronchoscopy was done. Patient was tried to wean off mechanical ventilatory support with multiple spontaneous breathing CPAP trials which she failed and continues to be on ventilator support. Tracheostomy was done on August 27. Patient has been off sedation since July. Patient is currently awaiting PEG tube placement and discharge to LTAC Past medical history: COPD, asthma, pulmonary hypertension, CAD, TN, hypertension, hyperlipidemia, diabetes mellitus type 2, COPD, asthma, gout, rheumatoid arthritis, anemia Past surgical history: tubal ligation, right foot surgery, tonsillectomy, bilateral total knee replacement, right eye surgery, Social history: Denies smoking, alcohol, drug use Review of systems Patient seen and examined at the bedside On assessment of the mental status patient had spontaneous eye opening but did not respond to voice commands or painful stimuli. Patient remained hemodynamically stable intermittent episodes of tachycardia, no fevers and currently not on any vasopressor support Urine output 1400 mL with a fluid balance of -370ml over 24 hours and had 1 bowel movement Objective vital signs Vital Sign Date Time Temp Pulse Resp B/P (MAP) Pulse Ox O2 Delivery O2 Flow Rate FiO2 09/02/24 17:15 91 15 108/72 (84) 100 09/02/24 16:19 30 09/02/24 16:10 Mechanical Ventilator 09/02/24 14:30 98.1 98.1 Total Intake and Output 09/01/24 09/01/24 09/02/24 15:00 23:00 07:00 Intake Total 100 ml 405 ml 600 ml Output Total 1100 ml 300 ml Balance 100 ml -695 ml 300 ml medications Current Medications Medications Dose Ordered Sig/Kristen Route Start Time Stop Time Status Last Admin Dose Admin Ondansetron HCl 4 mg Q4HP PRN IV 08/11/24 13:00 Docusate Sodium 100 mg BIDPRN PRN PO 08/11/24 13:00 Acetaminophen 650 mg Q6HP PRN PO 08/11/24 13:00 Albuterol 2.5 mg Q6HWA NEB 08/11/24 18:00 09/02/24 12:16 2.5 MG Ipratropium [place] 0.5 mg Q6HWA NEB 08/11/24 18:00 09/02/24 12:16 0.5 MG Albuterol 2.5 mg Q2HPRN PRN NEB 08/11/24 20:45 08/20/24 10:09 2.5 MG Ipratropium [place] 0.5 mg Q2HPRN PRN NEB 08/11/24 20:45 08/20/24 10:09 0.5 MG Pantoprazole Sodium 40 mg DAILY IV 08/13/24 10:00 09/02/24 09:36 40 MG Hydralazine HCl 10 mg Q6HP PRN IV 08/15/24 15:30 08/24/24 18:01 10 MG Labetalol HCl 20 mg Q2HPRN PRN IV 08/19/24 15:15 08/20/24 06:20 20 MG Sodium Chloride 10 ml QSHIFT@10,22 IV 08/20/24 22:00 09/02/24 09:37 10 ML Diagnostic Test (Pha) 1 strip ACHS 08/23/24 17:00 09/02/24 17:50 1 STRIP Insulin Human Regular ACHS SC 08/23/24 17:00 09/02/24 17:50 2 UNITS Dextrose 50 ml UD PRN IV 08/23/24 14:15 Bisacodyl 10 mg QHSP PRN CA 08/24/24 14:15 Potassium Chloride 100 ml @ 50 mls/hr Q2H IV 08/24/24 22:00 08/25/24 01:59 UNV Ertapenem 1 gm/ Sodium Chloride 50 ml @ 100 mls/hr 1400 IV 08/25/24 14:00 09/02/24 13:54 100 MLS/HR Enteral Nutritional Formula 1,000 ml 35ML/HR GT 08/25/24 12:00 Amino Acid Protein 30 ml BID GT 08/25/24 22:00 09/01/24 21:39 30 ML Prednisone 10 mg DAILY NG 08/27/24 10:00 09/01/24 09:51 10 MG Lorazepam 1 mg ONCE PRN IV 08/27/24 10:00 Carbamide Peroxide 5 drop Q12H EACH EAR 08/27/24 18:00 09/02/24 06:08 5 DROP Norepinephrine Bitartrate 250 ml @ 3.75 mls/hr Q24H IV 08/30/24 06:45 08/30/24 06:58 3.75 MLS/HR Furosemide 20 mg DAILY IV 08/31/24 10:00 09/02/24 09:37 20 MG Purified Water 200 ml Q6HR GT 08/31/24 12:00 09/02/24 06:07 200 ML Enoxaparin Sodium 40 mg DAILY SC 08/31/24 10:00 08/31/24 10:01 40 MG Dextrose 1,000 ml @ 50 mls/hr Q20H IV 09/02/24 10:00 Enteral Nutritional Formula 30 ml Q1HR PO 09/03/24 06:00 UNV Examination Constitutional: Patient has spontaneous eye opening but is unresponsive to vocal or painful stimuli Gen - no pallor, no icterus, no cyanosis, no clubbing, no LAD, no edema . Skin - Patients skin is warm and dry.. HEENT - normocephalic, atraumatic, dry mucous membranes. Neck - full ROM, no LAD, no JVD Pulmonary - B/L equal breath sounds with a minimal basilar crackles, no wheezing cardiovascular - variable S1,S2 heard, no added sounds, no murmurs heard. capillary refill normal <2 secs. GI - soft abdomen, nondistended. Bowel sounds normoactive Neurological - patient on mechanical ventilation, no sedation but delirious with spontaneous eye opening but no responds to vocal or painful stimuli. Gag reflex present, plantar reflex downgoing, pupils equal and reactive laboratory and microbiology Laboratory Tests 09/02/24 15:11 09/02/24 04:50 Test 09/02/24 15:11 Range/Units Serum Glucose 148 H 74-106 mg/dL Microbiology Date/Time Source Procedure Growth Status 08/25/24 13:42 Nose MRSA Screen - Final Complete 08/23/24 18:36 Voided Urine Urine Culture - Final Presumptive Nell albicans Complete 08/13/24 04:40 Blood Blood Culture - Final NO GROWTH AFTER 5 DAYS OF INCUBATION. Complete 08/13/24 02:49 Sputum Gram Stain - Final Complete 08/13/24 02:49 Sputum Respiratory Culture - Final Complete Problem List/Assessment/Plan Problem List/Assessment/Plan Neurology # acute metabolic / hypoxic encephalopathy status post cardiopulmonary arrest # ?vegetative status - spontaneous eye opening but nonresponsive - CT head on 08/12- showed very mild cortical atrophy otherwise unremarkable - MRI brain on 08/14- showed no acute intracranial pathology - repeat MRI brain on 08/28- showed no evidence of acute infarction, intracranial hemorrhage, mass effect or hydrocephalus, mild changes of chronic microvascular ischemic disease, stable configuration of lateral ventricles likely colpocephaly - neurology consulted who assessed the patient with possible vegetative state and recommends continuing supportive treatment Respiratory # acute hypercarbic/hypoxemic respiratory failure status post mechanical ventilation # respiratory alkalosis without compensation # mucus plugging s/p bronchoscopy # pulmonary edema - ABG reviewed, - on mechanical ventilation with a peep 5, FiO2 30%, tidal volume 350 mL, RR 14 PaO2/FiO2 300 - bronchoscopy done on 11/12 which showed left lower lobe atelectasis due to mucus plugging from L6-L10 and R1-R3 - patient has tracheostomy done on 08/27 - albuterol and ipratropium nebulizer q.6 hours - pending transferred to [facility] - we will try a CPAP trial in the morning tomorrow Cardiovascular # S/P cardiopulmonary arrest with a ROSC # Septic shock, resolved # hypertensive heart disease with diastolic heart failure # new onset atrial fibrillation # pulmonary hypertension - patient currently not on any vasopressor support and is hemodynamically stable - hydralazine q.6 hours PRN for SBP> 160 Nephrology # HECTOR likely due to VMN, resolved # Hypernatremia - free water via NG tube 300 mL per q.6 hours - was on D5W, stopped after hypernatremia resolved - monitoring labs Gastrointestinal # s/p PEG tube placement - normoactive bowel sounds with bowel movement - we will be started on nutrition via PEG tomorrow Infectious disease # UTI - urine culture from 08/23 showed growth of presumptive Nell albicans - blood cultures, respiratory sputum cultures from 08/13 negative for any growth - as of today patient does not have any fevers, WBC count 60393 with 79% neutrophils, patient on steroids - d/c ertapenam Endocrinology # type 2 diabetes mellitus with hyperglycemia # obesity -on ISS Musculoskeletal # rheumatoid arthritis # gout -continue current management PUD prophylaxis: Protonix DVT prophylaxis: Enoxaparin PICC line left upper arm- placed on 08/20 Vigil's catheter- changed on 08/26 Goals of care discussed with the patient's son for over 25 minutes. Code status full code Critical care time spent excluding procedures: 61 minutes Plan discussed with Dr. Hernandez Plan discussed with: Son, Other (RN (YEIMY)) My Orders My Orders Orders - CRISTIANA KIRKLAND RESIDENT Procedure Category Date Status Time Chest Xray 1 View XY 09/02/24 Resulted 07:38 Urine Bacterial MADELINE 09/02/24 In Process Culture 17:12 Blood Culture MADELINE 09/02/24 Uncollected 07:44 Respiratory Culture MADELINE 09/02/24 Uncollected W/ Gs 07:44 Urinalysis LAB 09/02/24 In Process 07:44 D5w 5% (Dextrose 5%) PHA 09/02/24 In Process 10:00 Free Water PHA 09/02/24 Verified 18:00 Hydralazine Injection PHA 09/02/24 Verified (Apresoline Inject 17:45 Basic Metabolic Panel LAB 09/03/24 Verified 04:00 Complete Blood Count LAB 09/03/24 Verified 04:00 Phosphorus LAB 09/03/24 Verified 04:00 Magnesium LAB 09/03/24 Verified 04:00 Chest Xray 1 View XY 09/03/24 Verified 04:00 Dietary Evaluation Review Recommendations by RD: Protein Supplementation Comments: 1) Increase TF rate from 30 mL/hr to 35 mL/hr. Initiate Pro-Stat @ 30 mL bid. Goal rate (including Pro-Stat) will provide 1208 kcals, 77g Pro, and 1178 mL free H2O (including flushes) per 24 hrs. Goal rate will meet ~ 100% estimated daily energy needs and ~94% estimated daily protein needs 2) Initiate vitamin C @ 500 mg and zinc sulfate @ 220 mg qd for 7 days 3) Advance to cardiac diet when medically feasible, pending [employer]IC[employer] approval 4) F/u with cardiology and pulmonology 5) Continue to monitor I&O, labs, and skin integrity Expected Outcomes/Goals: 1) appetite and labs to improve 2) diet to advance 3) f/u in 2-3 Interpretation of weight loss: up to 20% in 1 year Date of Service: Sep 02, 2024 Billing Provider: ROSHAN HERNANDEZ MD Common Visit Codes: 39219-[id number] CARE 30-74 MIN CRISTIANA KIRKLAND RESIDENT Sep 02, 2024 17:55 ROSHAN HERNANDEZ MD Sep 03, 2024 15:49
[2024-09-02] MEDS: FREE WATER GT SCH (18:00)
--- NOTE | 2024-09-02 18:15 | DVHPN2 ---
Progress Note - Dictate Date Seen: Sep 02, 2024 Medical Necessity Reason Pt with a Central, PICC or Fol: Yes The following are medically ne: PICC Line, Vigil Catheter Reason for vigil catheter: Strict I&O Subjective Patient was seen and evaluated in follow up in the ICU. Patient is intubated and sedated on ventilator. 30% FiO2. Patient underwent EGD with PEG placement. Patient had a 2-3 cm sliding-type hiatal hernia otherwise normal examination up to the 2nd part of the duodenal with no retained gastric contents. WBC 13.8, NA 146, K 2.8. vital signs Vital Sign Date Time Temp Pulse Resp B/P (MAP) Pulse Ox O2 Delivery O2 Flow Rate FiO2 09/02/24 17:15 91 15 108/72 (84) 100 09/02/24 16:19 30 09/02/24 16:10 Mechanical Ventilator 09/02/24 14:30 98.1 98.1 Total Intake and Output 09/01/24 09/01/24 09/02/24 15:00 23:00 07:00 Intake Total 100 ml 405 ml 600 ml Output Total 1100 ml 300 ml Balance 100 ml -695 ml 300 ml medications Current Medications Medications Dose Ordered Sig/Kristen Route Start Time Stop Time Status Last Admin Dose Admin Ondansetron HCl 4 mg Q4HP PRN IV 08/11/24 13:00 Acetaminophen 650 mg Q6HP PRN PO 08/11/24 13:00 Albuterol 2.5 mg Q6HWA NEB 08/11/24 18:00 09/02/24 12:16 2.5 MG Ipratropium [place] 0.5 mg Q6HWA NEB 08/11/24 18:00 09/02/24 12:16 0.5 MG Albuterol 2.5 mg Q2HPRN PRN NEB 08/11/24 20:45 08/20/24 10:09 2.5 MG Ipratropium [place] 0.5 mg Q2HPRN PRN NEB 08/11/24 20:45 08/20/24 10:09 0.5 MG Pantoprazole Sodium 40 mg DAILY IV 08/13/24 10:00 09/02/24 09:36 40 MG Sodium Chloride 10 ml QSHIFT@10,22 IV 08/20/24 22:00 09/02/24 09:37 10 ML Diagnostic Test (Pha) 1 strip ACHS 08/23/24 17:00 09/02/24 17:50 1 STRIP Insulin Human Regular ACHS SC 08/23/24 17:00 09/02/24 17:50 2 UNITS Dextrose 50 ml UD PRN IV 08/23/24 14:15 Bisacodyl 10 mg QHSP PRN [place] 08/24/24 14:15 Potassium Chloride 100 ml @ 50 mls/hr Q2H IV 08/24/24 22:00 08/25/24 01:59 UNV Enteral Nutritional Formula 1,000 ml 35ML/HR GT 08/25/24 12:00 Amino Acid Protein 30 ml BID GT 08/25/24 22:00 09/01/24 21:39 30 ML Prednisone 10 mg DAILY NG 08/27/24 10:00 09/01/24 09:51 10 MG Lorazepam 1 mg ONCE PRN IV 08/27/24 10:00 Carbamide Peroxide 5 drop Q12H EACH EAR 08/27/24 18:00 09/02/24 18:00 5 DROP Norepinephrine Bitartrate 250 ml @ 3.75 mls/hr Q24H IV 08/30/24 06:45 08/30/24 06:58 3.75 MLS/HR Enoxaparin Sodium 40 mg DAILY SC 08/31/24 10:00 08/31/24 10:01 40 MG Dextrose 1,000 ml @ 50 mls/hr Q20H IV 09/02/24 10:00 09/02/24 19:00 Enteral Nutritional Formula 30 ml Q1HR PO 09/03/24 06:00 Purified Water 300 ml Q6HR GT 09/02/24 18:00 Hydralazine HCl 10 mg Q6HP PRN IV 09/02/24 17:45 objective GENERAL: Intubated on ventilator. LUNGS: Decreased breath sounds. CARDIOVASCULAR: Heart sounds are good. ABDOMEN: Soft. laboratory and microbiology Laboratory Tests 09/02/24 15:11 09/02/24 04:50 Test 09/02/24 15:11 Range/Units Serum Glucose 148 H 74-106 mg/dL Problem List Metabolic encephalopathy/toxic encephalopathy/hypoxic encephalopathy. Status post cardiac arrest. Acute diastolic heart failure. New onset AFib. Paroxysmal Bradycardia . Acute hypoxic respiratory failure. Acute exacerbation of COPD. Pulmonary hypertension. Transaminitis. HECTOR. Pneumonia. Anemia of chronic disease. Obesity. Rheumatoid arthritis. Gout. Hypertension. Hyperlipidemia. Assessment/Plan Continued all current supportive medical care. Amlodipine, Clonidine. IV antibiotics as ordered. Diuretics with Lasix. IV Labetalol for SBP >150 IV Hydralazine for SBP > 150. GI prophylactics. Vasopressors for hemodynamic support. Additional plan as per the hospital course. Critical care time of 45 minutes provided to include time spent evaluation of patient at bedside, when appropriate patient/family education for diagnosis, treatment plan, review of pertinent medical information and discussion of care with specialty providers and PCP. Mechanical ventilator parameters, treatment and adjustments have personally been reviewed by me and treatment plan by grain oilseed or pasture grower has also been reviewed. Dietary Evaluation Review Recommendations by RD: Protein Supplementation Comments: 1) Increase TF rate from 30 mL/hr to 35 mL/hr. Initiate Pro-Stat @ 30 mL bid. Goal rate (including Pro-Stat) will provide 1208 kcals, 77g Pro, and 1178 mL free H2O (including flushes) per 24 hrs. Goal rate will meet ~ 100% estimated daily energy needs and ~94% estimated daily protein needs 2) Initiate vitamin C @ 500 mg and zinc sulfate @ 220 mg qd for 7 days 3) Advance to cardiac diet when medically feasible, pending PRINTED FORMS PROOFREADER approval 4) F/u with cardiology and pulmonology 5) Continue to monitor I&O, labs, and skin integrity Expected Outcomes/Goals: 1) appetite and labs to improve 2) diet to advance 3) f/u in 2-3 Interpretation of weight loss: up to 20% in 1 year Plan discussed with: Other ASHLEY BRADFORD MD Sep 02, 2024 18:15
[2024-09-02 18:28] LABS: Urine Blood 3+ /uL (Negative); Urine Clarity Turbid (Clear); Urine Color Light-Brown (Yellow); Urine Mucus FEW (None Seen); Urine Protein, UAD 2+ (Negative); Urine Specific Gravity 1.015 (1.001-1.035); Urine Squamous Epithelial Cell FEW /hpf (<5); Urine Urobilinogen Normal (Negative); Urine WBC 299 /HPF (0-5); Urine WBC Clumps PRESENT /hpf (None Seen)
[2024-09-03] VITALS (107 sets, daily range): BP systolic 86–156; BP diastolic 50–99; PULSE 82–114; RESP 14–26; TEMP 98.1–99.2; O2SAT 95–100
--- NOTE | 2024-09-03 05:29 | DVH ---
EXAM: XR Chest, 1 View CLINICAL INDICATION: on [facility] vent s/p tracheostomy TECHNIQUE: Frontal view of the chest. COMPARISON: XY CHEST XRAY 1 VIEW on DOS: 09/02/24, XY CHEST PORTABLE on DOS: 09/01/24, XY CHEST PORTABL E on DOS: 08/31/24, XY CHEST PORTABLE on DOS: 08/30/24, XY CHEST PORTABLE on DOS: 08/29/24 FINDINGS: LUNGS AND PLEURAL SPACES: See below. HEART: Cardiomegaly with mild congestion. MEDIASTINUM: Unremarkable. Normal mediastinal contour. BONES/JOINTS: Unremarkable. No acute fracture. TUBES, LINES AND DEVICES: Tracheostomy tube in satisfactory position. Left internal jugular centra l venous catheter tip in the superior vena cava. OTHER FINDINGS: . . .. IMPRESSION: Cardiomegaly with mild congestion.
[2024-09-03 05:42] LABS: Basophils # (auto) 0 10 ^3/uL (0-0.2); Basophils % (auto) 0.3 % (0.0-2.0); Eosinophils # (auto) 0.1 10 ^3/uL (0-0.8); Eosinophils % (auto) 1.2 % (0.0-7.0); Hematocrit 34.9 % (36.0-46.0); Hemoglobin 11.1 g/dL (12.2-16.2); Lymphocytes # (auto) 1.9 10 ^3/uL (0.4-5.4); Lymphocytes % (auto) 15.9 % (10.0-50.0); Mean Corpuscular Hemoglobin 27.3 pg (28.0-32.0); Mean Corpuscular Volume 85.3 fL (80.0-100.0); Monocytes # (auto) 0.8 10 ^3/uL (0-1.3); Monocytes % (auto) 6.9 % (0.0-12.0); Neutrophils # (auto) 9.3 10 ^3/uL (1.6-8.6); Neutrophils % (auto) 75.7 % (37.0-80.0); Nucleated Red Blood Cells % 0.1 %; Platelet Count (auto) 106 10^3/uL (140-450); Red Blood Cells 4.08 10^6/uL (4.0-5.20); Red Cell Distribution Width 16.4 % (11.8-14.3); White Blood Cell 12.3 10^3/uL (4.4-10.8)
[2024-09-03 05:53] LABS: Anion Gap 10 (5-15); Carbon Dioxide 26 mmol/L (20-31); Chloride 105 mmol/L (98-107); Sodium 141 mmol/L (136-145)
[2024-09-03 05:54] LABS: Calcium 9.1 mg/dL (8.7-10.4)
[2024-09-03 05:59] LABS: BUN/Creatinine Ratio 26.1 (10.0-20.0); Glucose 104 mg/dL (74-106)
[2024-09-03] MEDS: Ensure Enlive Vanilla 8oz Bottle PO SCH (06:00)
[2024-09-03 06:01] LABS: Phosphorus 2.9 mg/dL (2.4-5.1)
[2024-09-03 06:05] LABS: Blood Urea Nitrogen 23 mg/dL (9-23); Potassium 3.4 mmol/L (3.5-5.1)
[2024-09-03] MEDS: POTASSIUM CHL 20MEQ/50ML 50 ML IV ONE ×2 (06:40→19:49)
[2024-09-03] MEDS ORDERED: POTASSIUM CHLORIDE 40 MEQ, LIDOCAINE 1% (LOCAL ANESTH.) 4 ML in SODIUM CHL 0.9% 250 ML IV ONE (08:00)
[2024-09-03] MEDS: predniSONE 5 MG TAB NG SCH (09:52)
--- NOTE | 2024-09-03 11:10 | DVHPN2 ---
Progress Note - Dictate Date Seen: Sep 03, 2024 Medical Necessity Reason Pt with a Central, PICC or Fol: Yes The following are medically ne: PICC Line, Vigil Catheter Reason for vigil catheter: Strict I&O Subjective Ms. Recinos is a 73 years old female with a history of hypertension, dyslipidemia, coronary artery disease, heart attack, congestive heart failure, asthma, COPD on home oxygen, gout, anemia, the patient was admitted found her custodial on 08/11/2024 with a chief company of shortness of breath I have seen and examined the patient, I have talked to her nurse and resident. Eyes are open, but nonresponsive to verbal stimuli, or visual thread We were able to look at her pupils today, the right side is slightly bigger PEG tube inserted on 09/02/2024 ABG, 08/12/2024: Respiratory acidosis, hypoxia WBC/HB/PLT/MCV, 08/12/2024: 7.2/11.9/302/85.7, 08/19/2024: 13.9/12.9/167/86.5 CMP, 08/12/2024: Unremarkable HGB A1c, 04/11/2024: 500 TBI/AST/ALT/AP, 08/19/2024: 0.19/61/108/86 TG/HDL/LDL/HDL, 05/2023: 101/6/186/45 Vitamin B12, 03/2024: 1161 TSH, 03/2024: 1.39 EEG 08/13/2024: Remarkably abnormal Extremity venous study, 08/13/2024: No evidence of right or left femoropopliteal venous thrombosis. Chest x-ray, 08/12/2024: Left central venous catheter overlies the left upper chest and may be not position. Clinical correlation advised. Endotracheal tube in satisfactory position. Left central venous catheter in uncertain position Chest x-ray, 08/15/24: Hazy bilateral opacities are unchanged CXR, 08/26/2024: Pulmonary venous congestion CT head, 08/12/2024: Very mild cortical atrophy otherwise unremarkable study CT head, 08/17/2024: No acute intracranial abnormality CT head, 08/24/2024: 1. No acute intracranial hemorrhage. 2. No CT findings of territorial ischemia CTA chest, 08/13/2024: Grossly enlarged pulmonary arteries underlying pulmonary arterial hypertension is suspected no pulmonary embolus There are bilateral infiltrates in the lung bases MRI brain, 07/17/24: No acute intracranial pathology MRI brain, 08/28/2024: No evidence of acute infarction, intracranial hemorrhage, mass effect or hydrocephalus. Mild changes of chronic microvascular ischemic disease. 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 Right mastoid effusion. vital signs Vital Sign Date Time Temp Pulse Resp B/P (MAP) Pulse Ox O2 Delivery O2 Flow Rate FiO2 09/03/24 10:03 100 19 125/77 (93) 100 30 09/03/24 08:00 Mechanical Ventilator+ 09/03/24 08:00 98.1 98.1 Total Intake and Output 09/02/24 09/02/24 09/03/24 15:00 23:00 07:00 Intake Total 518.566 ml 151.876 ml 0 ml Output Total 1075 ml 445 ml Balance 518.566 ml -923.124 ml -445 ml medications Current Medications Medications Dose Ordered Sig/Kristen Route Start Time Stop Time Status Last Admin Dose Admin Ondansetron HCl 4 mg Q4HP PRN IV 08/11/24 13:00 Acetaminophen 650 mg Q6HP PRN PO 08/11/24 13:00 Albuterol 2.5 mg Q6HWA NEB 08/11/24 18:00 09/03/24 06:08 2.5 MG Ipratropium [place] 0.5 mg Q6HWA NEB 08/11/24 18:00 09/03/24 06:08 0.5 MG Albuterol 2.5 mg Q2HPRN PRN NEB 08/11/24 20:45 08/20/24 10:09 2.5 MG Ipratropium [place] 0.5 mg Q2HPRN PRN NEB 08/11/24 20:45 08/20/24 10:09 0.5 MG Pantoprazole Sodium 40 mg DAILY IV 08/13/24 10:00 09/03/24 09:51 40 MG Sodium Chloride 10 ml QSHIFT@10,22 IV 08/20/24 22:00 09/03/24 09:51 10 ML Diagnostic Test (Pha) 1 strip ACHS 08/23/24 17:00 09/03/24 06:31 1 STRIP Insulin Human Regular ACHS SC 08/23/24 17:00 09/02/24 17:50 2 UNITS Dextrose 50 ml UD PRN IV 08/23/24 14:15 Bisacodyl 10 mg QHSP PRN [place] 08/24/24 14:15 Potassium Chloride 100 ml @ 50 mls/hr Q2H IV 08/24/24 22:00 08/25/24 01:59 UNV Enteral Nutritional Formula 1,000 ml 35ML/HR GT 08/25/24 12:00 Amino Acid Protein 30 ml BID GT 08/25/24 22:00 09/01/24 21:39 30 ML Lorazepam 1 mg ONCE PRN IV 08/27/24 10:00 Carbamide Peroxide 5 drop Q12H EACH EAR 08/27/24 18:00 09/03/24 06:28 5 DROP Norepinephrine Bitartrate 250 ml @ 3.75 mls/hr Q24H IV 08/30/24 06:45 08/30/24 06:58 3.75 MLS/HR Enoxaparin Sodium 40 mg DAILY SC 08/31/24 10:00 09/03/24 09:54 40 MG Enteral Nutritional Formula 30 ml Q1HR PO 09/03/24 06:00 Purified Water 300 ml Q6HR GT 09/02/24 18:00 Hydralazine HCl 10 mg Q6HP PRN IV 09/02/24 17:45 objective The patient is well-nourished and well-developed with no distress. MENTAL STATUS: Subjective, CRANIAL NERVES: pupils are round and reactive to light briskly, normal external eye movement, normal sensation and motor examination in the lateral trigeminal nerve distribution, no facial weakness SENSATION: Responses to pain stimuli. MOTOR: Normal tone in the upper and lower extremity. Normal muscle bulk. No fasciculations. No spontaneous extremity movement REFLEXES: Deep tendon reflexes are symmetrical. No pathological reflexes. CEREBELLAR/COORDINATION: Deferred GAIT/STATION: deferred. laboratory and microbiology Laboratory Tests 09/03/24 04:45 Test 09/03/24 04:45 Range/Units Serum Glucose 104 74-106 mg/dL Problem List Coma, resolved Hypoxic encephalopathy Metabolic encephalopathy Toxic encephalopathy Cardiopulmonary arrest Respiratory failure Hypoxia Status post CPR Sepsis Pneumonia Acidosis Seizure-like activity to rule out seizure attack Reported anisocoria with right-sided slightly bigger on 08/14/2024, evident physical examination on 08/19/2024, 09/03/2024 ? Vegetative status Assessment/Plan Monitoring Supportive treatment ICU care Follow-up labs Respiratory support Stabilize vitals Antibiotics Oxygen DVT prophylaxis GI prophylaxis Up to chair Physical therapy Need a feeding tube More recommendation per clinical course The patient may have a poor prognosis for adequate/good meaningful recovery This medical document was created using an electronic medical record system with [employer] dictation system. Although this document has been carefully reviewed, there may still be some phonetic and typographical errors. These areas are purely typographical due to imperfections of the software programs, and do not reflect any compromise in the patient's medical care. Prognosis poor Dietary Evaluation Review Recommendations by RD: Protein Supplementation Comments: 1) Increase TF rate from 30 mL/hr to 35 mL/hr. Initiate Pro-Stat @ 30 mL bid. Goal rate (including Pro-Stat) will provide 1208 kcals, 77g Pro, and 1178 mL free H2O (including flushes) per 24 hrs. Goal rate will meet ~ 100% estimated daily energy needs and ~94% estimated daily protein needs 2) Initiate vitamin C @ 500 mg and zinc sulfate @ 220 mg qd for 7 days 3) Advance to cardiac diet when medically feasible, pending RADIATOR CLEANER approval 4) F/u with cardiology and pulmonology 5) Continue to monitor I&O, labs, and skin integrity Expected Outcomes/Goals: 1) appetite and labs to improve 2) diet to advance 3) f/u in 2-3 Interpretation of weight loss: up to 20% in 1 year Plan discussed with: PATRIZIA Gottlieb MD Sep 03, 2024 11:10
--- NOTE | 2024-09-03 15:04 | DVHPN2 ---
Progress Note Date Seen: Sep 03, 2024 Medical Necessity Reason Pt with a Central, PICC or Fol: Yes The following are medically ne: PICC Line, Vigil Catheter Reason for vigil catheter: Strict I&O Objective vital signs Vital Sign Date Time Temp Pulse Resp B/P (MAP) Pulse Ox O2 Delivery O2 Flow Rate FiO2 09/03/24 14:45 91 16 116/76 (89) 98 09/03/24 14:00 30 09/03/24 14:00 Mechanical Ventilator+ 09/03/24 13:30 99.0 99.0 Total Intake and Output 09/02/24 09/02/24 09/03/24 15:00 23:00 07:00 Intake Total 518.566 ml 151.876 ml 0 ml Output Total 1075 ml 445 ml Balance 518.566 ml -923.124 ml -445 ml medications Current Medications Medications Dose Ordered Sig/Kristen Route Start Time Stop Time Status Last Admin Dose Admin Ondansetron HCl 4 mg Q4HP PRN IV 08/11/24 13:00 Acetaminophen 650 mg Q6HP PRN PO 08/11/24 13:00 Albuterol 2.5 mg Q6HWA NEB 08/11/24 18:00 09/03/24 11:26 2.5 MG Ipratropium [place] 0.5 mg Q6HWA NEB 08/11/24 18:00 09/03/24 11:26 0.5 MG Albuterol 2.5 mg Q2HPRN PRN NEB 08/11/24 20:45 08/20/24 10:09 2.5 MG Ipratropium [place] 0.5 mg Q2HPRN PRN NEB 08/11/24 20:45 08/20/24 10:09 0.5 MG Pantoprazole Sodium 40 mg DAILY IV 08/13/24 10:00 09/03/24 09:51 40 MG Sodium Chloride 10 ml QSHIFT@10,22 IV 08/20/24 22:00 09/03/24 09:51 10 ML Diagnostic Test (Pha) 1 strip ACHS 08/23/24 17:00 09/03/24 11:33 1 STRIP Insulin Human Regular ACHS SC 08/23/24 17:00 09/02/24 17:50 2 UNITS Dextrose 50 ml UD PRN IV 08/23/24 14:15 Bisacodyl 10 mg QHSP PRN [place] 08/24/24 14:15 Potassium Chloride 100 ml @ 50 mls/hr Q2H IV 08/24/24 22:00 08/25/24 01:59 UNV Enteral Nutritional Formula 1,000 ml 35ML/HR GT 08/25/24 12:00 Amino Acid Protein 30 ml BID GT 08/25/24 22:00 09/01/24 21:39 30 ML Lorazepam 1 mg ONCE PRN IV 08/27/24 10:00 Carbamide Peroxide 5 drop Q12H EACH EAR 08/27/24 18:00 09/03/24 06:28 5 DROP Norepinephrine Bitartrate 250 ml @ 3.75 mls/hr Q24H IV 08/30/24 06:45 08/30/24 06:58 3.75 MLS/HR Enoxaparin Sodium 40 mg DAILY SC 08/31/24 10:00 09/03/24 09:54 40 MG Enteral Nutritional Formula 30 ml Q1HR PO 09/03/24 06:00 Purified Water 300 ml Q6HR GT 09/02/24 18:00 09/03/24 11:33 300 ML Hydralazine HCl 10 mg Q6HP PRN IV 09/02/24 17:45 laboratory and microbiology Laboratory Tests 09/03/24 04:45 Test 09/03/24 04:45 Range/Units Serum Glucose 104 74-106 mg/dL Microbiology Date/Time Source Procedure Growth Status 09/02/24 17:26 Urine - Vigil Port Urine Culture - Preliminary Resulted 08/25/24 13:42 Nose MRSA Screen - Final Complete 08/13/24 04:40 Blood Blood Culture - Final NO GROWTH AFTER 5 DAYS OF INCUBATION. Complete 08/13/24 02:49 Sputum Gram Stain - Final Complete 08/13/24 02:49 Sputum Respiratory Culture - Final Complete Problem List/Assessment/Plan Problem List/Assessment/Plan INTUBATED AFEBRILE VSS S/P TRACHEOSTOMY S/P PEG PLACEMENT NO ACTIVE BLEEDING NO COMPLICATIONS Plan discussed with: Other Dietary Evaluation Review Recommendations by RD: Protein Supplementation Comments: 1) Increase TF rate from 30 mL/hr to 35 mL/hr. Initiate Pro-Stat @ 30 mL bid. Goal rate (including Pro-Stat) will provide 1208 kcals, 77g Pro, and 1178 mL free H2O (including flushes) per 24 hrs. Goal rate will meet ~ 100% estimated daily energy needs and ~94% estimated daily protein needs 2) Initiate vitamin C @ 500 mg and zinc sulfate @ 220 mg qd for 7 days 3) Advance to cardiac diet when medically feasible, pending [facility] approval 4) F/u with cardiology and pulmonology 5) Continue to monitor I&O, labs, and skin integrity Expected Outcomes/Goals: 1) appetite and labs to improve 2) diet to advance 3) f/u in 2-3 Interpretation of weight loss: up to 20% in 1 year SHELBY OLMOS MD Sep 03, 2024 15:04
[2024-09-03] MEDS ORDERED: Glucerna 1.2 Cal 1Liter BOTTLE GT SCH (16:00)
--- NOTE | 2024-09-03 17:05 | DVHPN2 ---
Progress Note - Dictate Date Seen: Sep 03, 2024 Medical Necessity Reason Pt with a Central, PICC or Fol: Yes The following are medically ne: PICC Line, Vigil Catheter Reason for vigil catheter: Strict I&O Subjective Patient was seen and evaluated in follow up in the ICU. Patient is intubated and sedated on ventilator. 30% FiO2. The patients eyes are open, but nonresponsive to verbal stimuli, or visual thread. Patient tolerated 20 min of trach collar. WBC 12.3. K 3.4. Patients potassium was replaced. Chest x-ray shows cardiomegaly with mild congestion. Patient has been accepted to [facility], pending bed availability. vital signs Vital Sign Date Time Temp Pulse Resp B/P (MAP) Pulse Ox O2 Delivery O2 Flow Rate FiO2 09/03/24 13:00 96 15 101/74 (83) 98 09/03/24 12:00 30 09/03/24 12:00 Mechanical Ventilator+ 09/03/24 12:00 99.2 99.2 Total Intake and Output 09/02/24 09/02/24 09/03/24 15:00 23:00 07:00 Intake Total 518.566 ml 151.876 ml 0 ml Output Total 1075 ml 445 ml Balance 518.566 ml -923.124 ml -445 ml medications Current Medications Medications Dose Ordered Sig/Kristen Route Start Time Stop Time Status Last Admin Dose Admin Ondansetron HCl 4 mg Q4HP PRN IV 08/11/24 13:00 Acetaminophen 650 mg Q6HP PRN PO 08/11/24 13:00 Albuterol 2.5 mg Q6HWA NEB 08/11/24 18:00 09/03/24 11:26 2.5 MG Ipratropium [place] 0.5 mg Q6HWA NEB 08/11/24 18:00 09/03/24 11:26 0.5 MG Albuterol 2.5 mg Q2HPRN PRN NEB 08/11/24 20:45 08/20/24 10:09 2.5 MG Ipratropium [place] 0.5 mg Q2HPRN PRN NEB 08/11/24 20:45 08/20/24 10:09 0.5 MG Pantoprazole Sodium 40 mg DAILY IV 08/13/24 10:00 09/03/24 09:51 40 MG Sodium Chloride 10 ml QSHIFT@10,22 IV 08/20/24 22:00 09/03/24 09:51 10 ML Diagnostic Test (Pha) 1 strip ACHS 08/23/24 17:00 09/03/24 11:33 1 STRIP Insulin Human Regular ACHS SC 08/23/24 17:00 09/02/24 17:50 2 UNITS Dextrose 50 ml UD PRN IV 08/23/24 14:15 Bisacodyl 10 mg QHSP PRN [place] 08/24/24 14:15 Potassium Chloride 100 ml @ 50 mls/hr Q2H IV 08/24/24 22:00 08/25/24 01:59 UNV Enteral Nutritional Formula 1,000 ml 35ML/HR GT 08/25/24 12:00 Amino Acid Protein 30 ml BID GT 08/25/24 22:00 09/01/24 21:39 30 ML Lorazepam 1 mg ONCE PRN IV 08/27/24 10:00 Carbamide Peroxide 5 drop Q12H EACH EAR 08/27/24 18:00 09/03/24 06:28 5 DROP Norepinephrine Bitartrate 250 ml @ 3.75 mls/hr Q24H IV 08/30/24 06:45 08/30/24 06:58 3.75 MLS/HR Enoxaparin Sodium 40 mg DAILY SC 08/31/24 10:00 09/03/24 09:54 40 MG Enteral Nutritional Formula 30 ml Q1HR PO 09/03/24 06:00 Purified Water 300 ml Q6HR GT 09/02/24 18:00 09/03/24 11:33 300 ML Hydralazine HCl 10 mg Q6HP PRN IV 09/02/24 17:45 objective GENERAL: Intubated on ventilator. LUNGS: Decreased breath sounds. CARDIOVASCULAR: Heart sounds are good. ABDOMEN: Soft. laboratory and microbiology Laboratory Tests 09/03/24 04:45 Test 09/03/24 04:45 Range/Units Serum Glucose 104 74-106 mg/dL Problem List Metabolic encephalopathy/toxic encephalopathy/hypoxic encephalopathy. Status post cardiac arrest. Acute diastolic heart failure. New onset AFib. Paroxysmal Bradycardia . Acute hypoxic respiratory failure. Acute exacerbation of COPD. Pulmonary hypertension. Transaminitis. HECTOR. Pneumonia. Anemia of chronic disease. Obesity. Rheumatoid arthritis. Gout. Hypertension. Hyperlipidemia. Assessment/Plan Continued all current supportive medical care. Nebulized breathing treatments. IV Hydralazine for SBP > 150. GI prophylactics. Vasopressors for hemodynamic support. Additional plan as per the hospital course. Critical care time of 45 minutes provided to include time spent evaluation of patient at bedside, when appropriate patient/family education for diagnosis, treatment plan, review of pertinent medical information and discussion of care with specialty providers and PCP. Mechanical ventilator parameters, treatment and adjustments have personally been reviewed by me and treatment plan by keypunch operator has also been reviewed. Dietary Evaluation Review Recommendations by RD: Protein Supplementation Comments: 1) Increase TF rate from 30 mL/hr to 35 mL/hr. Initiate Pro-Stat @ 30 mL bid. Goal rate (including Pro-Stat) will provide 1208 kcals, 77g Pro, and 1178 mL free H2O (including flushes) per 24 hrs. Goal rate will meet ~ 100% estimated daily energy needs and ~94% estimated daily protein needs 2) Initiate vitamin C @ 500 mg and zinc sulfate @ 220 mg qd for 7 days 3) Advance to cardiac diet when medically feasible, pending [employer]ULT FAMILY HOME PROGRAM MANAGER approval 4) F/u with cardiology and pulmonology 5) Continue to monitor I&O, labs, and skin integrity Expected Outcomes/Goals: 1) appetite and labs to improve 2) diet to advance 3) f/u in 2-3 Interpretation of weight loss: up to 20% in 1 year Plan discussed with: ASHLEY Waggoner MD Sep 03, 2024 13:29
--- NOTE | 2024-09-03 20:36 | DVHPNRES ---
Progress Note Date Seen: Sep 03, 2024 Resident Creating Document: CRISTIANA KIRKLAND RESIDENT Medical Necessity Reason Pt with a Central, PICC or Fol: Yes The following are medically ne: PICC Line, Vigil Catheter Reason for vigil catheter: Strict I&O Subjective Review of Systems Patient is a 73-year-old female with a past medical history of asthma, COPD on home oxygen at 2 L/min, coronary artery disease with a SC, CHF, pulmonary hypertension, hyperlipidemia, rheumatoid arthritis presented to the hospital with a chief complaint of shortness of breath. Patient reported having chest pain and shortness of breath for few days before coming into the hospital. She was admitted a month ago and was diagnosed with pneumonia, following discharge patient was sent to [facility] for rehabilitation. Initial chest x-ray showed bibasilar airspace opacities suspicious for pneumonia. Patient was initially managed on the [place] [facility] floor with IV antibiotics, breathing treatments, IV steroids. One day after admission patient went into cardiopulmonary arrest , following which CPR was initiated and ROSC was achieved and patient was shifted to ICU level of care. While in the ICU patient was treated for COPD exacerbation likely due to pneumonia with a mucous plugging following which bronchoscopy was done. Patient was tried to wean off mechanical ventilatory support with multiple spontaneous breathing CPAP trials which she failed and continues to be on ventilator support. Tracheostomy was done on August 27. Patient has been off sedation since July. Patient is currently awaiting PEG tube placement and discharge to LTAC Past medical history: COPD, asthma, pulmonary hypertension, CAD, SC, hypertension, hyperlipidemia, diabetes mellitus type 2, COPD, asthma, gout, rheumatoid arthritis, anemia Past surgical history: tubal ligation, right foot surgery, tonsillectomy, bilateral total knee replacement, right eye surgery, Social history: Denies smoking, alcohol, drug use Review of systems Patient seen and examined at the bedside On assessment of the mental status patient had spontaneous eye opening but did not respond to voice commands or painful stimuli. Patient remained hemodynamically stable , no fevers and currently not on any vasopressor support Urine output 1520 mL with a fluid balance of -774ml over 24 hours and had 3 bowel movements Objective vital signs Vital Sign Date Time Temp Pulse Resp B/P (MAP) Pulse Ox O2 Delivery O2 Flow Rate FiO2 09/03/24 19:00 98 24 140/74 (96) 99 09/03/24 18:00 30 09/03/24 18:00 Mechanical Ventilator+ 09/03/24 16:45 98.2 98.2 Total Intake and Output 09/02/24 09/02/24 09/03/24 15:00 23:00 07:00 Intake Total 518.566 ml 151.876 ml 0 ml Output Total 1075 ml 445 ml Balance 518.566 ml -923.124 ml -445 ml medications Current Medications Medications Dose Ordered Sig/Kristen Route Start Time Stop Time Status Last Admin Dose Admin Ondansetron HCl 4 mg Q4HP PRN IV 08/11/24 13:00 Acetaminophen 650 mg Q6HP PRN PO 08/11/24 13:00 Albuterol 2.5 mg Q6HWA NEB 08/11/24 18:00 09/03/24 18:14 2.5 MG Ipratropium [place] 0.5 mg Q6HWA NEB 08/11/24 18:00 09/03/24 18:14 0.5 MG Albuterol 2.5 mg Q2HPRN PRN NEB 08/11/24 20:45 08/20/24 10:09 2.5 MG Ipratropium [place] 0.5 mg Q2HPRN PRN NEB 08/11/24 20:45 08/20/24 10:09 0.5 MG Pantoprazole Sodium 40 mg DAILY IV 08/13/24 10:00 09/03/24 09:51 40 MG Sodium Chloride 10 ml QSHIFT@10,22 IV 08/20/24 22:00 09/03/24 09:51 10 ML Diagnostic Test (Pha) 1 strip ACHS 08/23/24 17:00 09/03/24 17:20 1 STRIP Insulin Human Regular ACHS SC 08/23/24 17:00 09/03/24 17:24 2 UNITS Dextrose 50 ml UD PRN IV 08/23/24 14:15 Bisacodyl 10 mg QHSP PRN [place] 08/24/24 14:15 Potassium Chloride 100 ml @ 50 mls/hr Q2H IV 08/24/24 22:00 08/25/24 01:59 UNV Amino Acid Protein 30 ml BID GT 08/25/24 22:00 09/01/24 21:39 30 ML Lorazepam 1 mg ONCE PRN IV 08/27/24 10:00 Purified Water 300 ml Q6HR GT 09/02/24 18:00 09/03/24 18:02 300 ML Hydralazine HCl 10 mg Q6HP PRN IV 09/02/24 17:45 Enteral Nutritional Formula 1,000 ml 30ML/HR GT 09/03/24 16:00 Examination Constitutional: Patient has spontaneous eye opening but is unresponsive to vocal or painful stimuli Gen - no pallor, no icterus, no cyanosis, no clubbing, no LAD, no edema . Skin - Patients skin is warm and dry.. HEENT - normocephalic, atraumatic, dry mucous membranes. Neck - full ROM, no LAD, no JVD Pulmonary - B/L equal breath sounds with a minimal basilar crackles, no wheezing cardiovascular - variable S1,S2 heard, no added sounds, no murmurs heard. capillary refill normal <2 secs. GI - soft abdomen, nondistended. Bowel sounds normoactive Neurological - patient on mechanical ventilation, no sedation but delirious with spontaneous eye opening but no responds to vocal or painful stimuli. Gag reflex present, plantar reflex downgoing, pupils equal and reactive laboratory and microbiology Laboratory Tests 09/03/24 04:45 Test 09/03/24 04:45 Range/Units Serum Glucose 104 74-106 mg/dL Microbiology Date/Time Source Procedure Growth Status 09/02/24 17:26 Urine - Vigil Port Urine Culture - Preliminary Resulted 08/25/24 13:42 Nose MRSA Screen - Final Complete 08/13/24 04:40 Blood Blood Culture - Final NO GROWTH AFTER 5 DAYS OF INCUBATION. Complete 08/13/24 02:49 Sputum Gram Stain - Final Complete 08/13/24 02:49 Sputum Respiratory Culture - Final Complete Problem List/Assessment/Plan Problem List/Assessment/Plan Neurology # acute metabolic / hypoxic encephalopathy status post cardiopulmonary arrest # ?vegetative status - spontaneous eye opening but nonresponsive - CT head on 08/12- showed very mild cortical atrophy otherwise unremarkable - MRI brain on 08/14- showed no acute intracranial pathology - repeat MRI brain on 08/28- showed no evidence of acute infarction, intracranial hemorrhage, mass effect or hydrocephalus, mild changes of chronic microvascular ischemic disease, stable configuration of lateral ventricles likely colpocephaly - neurology consulted who assessed the patient with possible vegetative state and recommends continuing supportive treatment Respiratory # acute hypercarbic/hypoxemic respiratory failure status post mechanical ventilation # respiratory alkalosis without compensation # mucus plugging s/p bronchoscopy # pulmonary edema - ABG reviewed, compensated - on mechanical ventilation with a peep 5, FiO2 30%, tidal volume 350 mL, RR 14 PaO2/FiO2 300 - bronchoscopy done on 11/12 which showed left lower lobe atelectasis due to mucus plugging from L6-L10 and R1-R3 - patient has tracheostomy done on 08/27 - albuterol and ipratropium nebulizer q.6 hours - pending transferred to LTACH - patient was put on a trach collar for 20 minutes following which she developed tachypnea and was put on ventilator again Cardiovascular # S/P cardiopulmonary arrest with a ROSC # Septic shock, resolved # hypertensive heart disease with diastolic heart failure # new onset atrial fibrillation # pulmonary hypertension - patient currently not on any vasopressor support and is hemodynamically stable - hydralazine q.6 hours PRN for SBP> 160 Nephrology # HECTOR likely due to VMN, resolved # Hypernatremia # hypokalemia - free water via NG tube 300 mL per q.6 hours - was on D5W, stopped after hypernatremia resolved - monitoring labs Gastrointestinal # s/p PEG tube placement - normoactive bowel sounds with bowel movement - started on nutrition with Glucerna at 30 mL/hour and ProStat 30 mL b.i.d. Infectious disease # UTI - urine culture from 08/23 showed growth of presumptive Nell albicans - blood cultures, respiratory sputum cultures from 08/13 negative for any growth - d/c ertapenam - repeat urine cultures on 09/02 showed no growth - repeat blood cultures on 09/02 show no growth after 24 hours Endocrinology # type 2 diabetes mellitus with hyperglycemia # obesity -on ISS Musculoskeletal # rheumatoid arthritis # gout -continue current management PUD prophylaxis: Protonix DVT prophylaxis: Enoxaparin held because of thrombocytopenia PICC line left upper arm- placed on 08/20 Vigil's catheter- changed on 08/26 Goals of care discussed with the patient's son for over 25 minutes. Code status full code Critical care time spent excluding procedures: 63 minutes Plan discussed with Dr. Hernandez Plan discussed with: Son, Other (RN ( Lisa )) My Orders My Orders Orders - CRISTIANA KIRKLAND RESIDENT Procedure Category Date Status Time Nutritional PHA 09/03/24 In Process Supplements (Glucerna 16:00 Complete Blood Count LAB 09/04/24 Verified 04:00 Basic Metabolic Panel LAB 09/04/24 Verified 04:00 Chest Xray 1 View XY 09/04/24 Logged 04:00 Dietary Evaluation Review Recommendations by RD: Protein Supplementation Comments: 1) Increase TF rate from 30 mL/hr to 35 mL/hr. Initiate Pro-Stat @ 30 mL bid. Goal rate (including Pro-Stat) will provide 1208 kcals, 77g Pro, and 1178 mL free H2O (including flushes) per 24 hrs. Goal rate will meet ~ 100% estimated daily energy needs and ~94% estimated daily protein needs 2) Initiate vitamin C @ 500 mg and zinc sulfate @ 220 mg qd for 7 days 3) Advance to cardiac diet when medically feasible, pending EVENT EXECUTIVE approval 4) F/u with cardiology and pulmonology 5) Continue to monitor I&O, labs, and skin integrity Expected Outcomes/Goals: 1) appetite and labs to improve 2) diet to advance 3) f/u in 2-3 Interpretation of weight loss: up to 20% in 1 year Date of Service: Sep 03, 2024 Billing Provider: ROSHAN HERNANDEZ MD Common Visit Codes: 74536-[id number] CARE 30-74 MIN CRISTIANA KIRKLAND RESIDENT Sep 03, 2024 20:36 ROSHAN HERNANDEZ MD Sep 04, 2024 15:58
--- NOTE | 2024-09-03 22:57 | DVHPN2 ---
Progress Note - Dictate Date Seen: Sep 03, 2024 Medical Necessity Reason Pt with a Central, PICC or Fol: Yes The following are medically ne: PICC Line, Vigil Catheter Reason for vigil catheter: Strict I&O Subjective G-tube site is clean Patient failed a trach collar trial today vital signs Vital Sign Date Time Temp Pulse Resp B/P (MAP) Pulse Ox O2 Delivery O2 Flow Rate FiO2 09/03/24 20:00 101 25 98 Mechanical Ventilator+ 30 30 09/03/24 19:00 140/74 (96) 09/03/24 16:45 98.2 98.2 Total Intake and Output 09/02/24 09/02/24 09/03/24 15:00 23:00 07:00 Intake Total 518.566 ml 151.876 ml 0 ml Output Total 1075 ml 445 ml Balance 518.566 ml -923.124 ml -445 ml medications Current Medications Medications Dose Ordered Sig/Kristen Route Start Time Stop Time Status Last Admin Dose Admin Ondansetron HCl 4 mg Q4HP PRN IV 08/11/24 13:00 Acetaminophen 650 mg Q6HP PRN PO 08/11/24 13:00 Albuterol 2.5 mg Q6HWA NEB 08/11/24 18:00 09/03/24 18:14 2.5 MG Ipratropium [place] 0.5 mg Q6HWA NEB 08/11/24 18:00 09/03/24 18:14 0.5 MG Albuterol 2.5 mg Q2HPRN PRN NEB 08/11/24 20:45 08/20/24 10:09 2.5 MG Ipratropium [place] 0.5 mg Q2HPRN PRN NEB 08/11/24 20:45 08/20/24 10:09 0.5 MG Pantoprazole Sodium 40 mg DAILY IV 08/13/24 10:00 09/03/24 09:51 40 MG Sodium Chloride 10 ml QSHIFT@10,22 IV 08/20/24 22:00 09/03/24 22:00 10 ML Diagnostic Test (Pha) 1 strip ACHS 08/23/24 17:00 09/03/24 22:00 1 STRIP Insulin Human Regular ACHS SC 08/23/24 17:00 09/03/24 17:24 2 UNITS Dextrose 50 ml UD PRN IV 08/23/24 14:15 Bisacodyl 10 mg QHSP PRN [place] 08/24/24 14:15 Potassium Chloride 100 ml @ 50 mls/hr Q2H IV 08/24/24 22:00 08/25/24 01:59 UNV Amino Acid Protein 30 ml BID GT 08/25/24 22:00 09/03/24 22:00 30 ML Lorazepam 1 mg ONCE PRN IV 08/27/24 10:00 Purified Water 300 ml Q6HR GT 09/02/24 18:00 09/03/24 18:02 300 ML Hydralazine HCl 10 mg Q6HP PRN IV 09/02/24 17:45 Enteral Nutritional Formula 1,000 ml 30ML/HR GT 09/03/24 16:00 objective VITAL SIGNS: Afebrile, stable signs. Intubated.sedated CHEST AND LUNGS: b/l coarse breath sounds HEART: Within normal limits.S1S2 rrr ABDOMEN: Soft.NT ND, G-tube site is clean Ext no c/c/e laboratory and microbiology Laboratory Tests 09/03/24 04:45 Test 09/03/24 04:45 Range/Units Serum Glucose 104 74-106 mg/dL Problems(with codes): (1) Ventilator dependence (2) Pulmonary vascular congestion (3) Pneumonia (4) CHF exacerbation (5) COPD exacerbation Prognosis Plan Start tube feedings via gastrostomy tube with a cold rate of 45 mL/hour I will follow up patient with you Monitor labs Once again thank you for allowing me to participate in the care of this patient Dietary Evaluation Review Recommendations by RD: Protein Supplementation Comments: 1) Increase TF rate from 30 mL/hr to 35 mL/hr. Initiate Pro-Stat @ 30 mL bid. Goal rate (including Pro-Stat) will provide 1208 kcals, 77g Pro, and 1178 mL free H2O (including flushes) per 24 hrs. Goal rate will meet ~ 100% estimated daily energy needs and ~94% estimated daily protein needs 2) Initiate vitamin C @ 500 mg and zinc sulfate @ 220 mg qd for 7 days 3) Advance to cardiac diet when medically feasible, pending CONTRACT GRAPHIC DESIGNER approval 4) F/u with cardiology and pulmonology 5) Continue to monitor I&O, labs, and skin integrity Expected Outcomes/Goals: 1) appetite and labs to improve 2) diet to advance 3) f/u in 2-3 Interpretation of weight loss: up to 20% in 1 year Plan discussed with: Other (DELORIS Nurse) HANSA OLMOS MD Sep 03, 2024 22:57
[2024-09-04] VITALS (87 sets, daily range): BP systolic 85–135; BP diastolic 55–89; PULSE 79–103; RESP 8–25; TEMP 97.8–98.7; O2SAT 86–100
[2024-09-04 05:31] LABS: Basophils # (auto) 0 10 ^3/uL (0-0.2); Basophils % (auto) 0.4 % (0.0-2.0); Eosinophils # (auto) 0.1 10 ^3/uL (0-0.8); Eosinophils % (auto) 1.1 % (0.0-7.0); Hematocrit 32.1 % (36.0-46.0); Hemoglobin 10.6 g/dL (12.2-16.2); Lymphocytes # (auto) 2.4 10 ^3/uL (0.4-5.4); Lymphocytes % (auto) 21.6 % (10.0-50.0); Mean Corpuscular Hemoglobin 27.8 pg (28.0-32.0); Mean Corpuscular Volume 84.3 fL (80.0-100.0); Monocytes # (auto) 0.7 10 ^3/uL (0-1.3); Monocytes % (auto) 6.1 % (0.0-12.0); Neutrophils # (auto) 7.7 10 ^3/uL (1.6-8.6); Neutrophils % (auto) 70.8 % (37.0-80.0); Platelet Count (auto) 105 10^3/uL (140-450); Red Blood Cells 3.81 10^6/uL (4.0-5.20); Red Cell Distribution Width 16.4 % (11.8-14.3); White Blood Cell 10.9 10^3/uL (4.4-10.8)
[2024-09-04 05:41] LABS: Anion Gap 9 (5-15); Carbon Dioxide 26 mmol/L (20-31); Chloride 103 mmol/L (98-107); Sodium 138 mmol/L (136-145)
[2024-09-04 05:43] LABS: Calcium 9.2 mg/dL (8.7-10.4)
[2024-09-04 05:47] LABS: BUN/Creatinine Ratio 31.3 (10.0-20.0)
[2024-09-04 06:02] LABS: Blood Urea Nitrogen 31 mg/dL (9-23); Glucose 120 mg/dL (74-106); Potassium 3.4 mmol/L (3.5-5.1)
--- NOTE | 2024-09-04 06:07 | DVH ---
EXAM: XR Chest, 1 View CLINICAL INDICATION: s/p trach TECHNIQUE: Frontal view of the chest. COMPARISON: XY CHEST XRAY 1 VIEW on DOS: 09/03/24, XY CHEST XRAY 1 VIEW on DOS: 09/02/24, XY CHEST XRAY 1 VIEW on DOS: 08/12/24, XY CHEST XRAY 1 VIEW on DOS: 04/11/24, XY CHEST XRAY 1 VIEW on DOS: 06/13/23 FINDINGS: LUNGS AND PLEURAL SPACES: See below. HEART: Cardiomegaly with mild congestion. MEDIASTINUM: Unremarkable. Normal mediastinal contour. BONES/JOINTS: Unremarkable. No acute fracture. TUBES, LINES AND DEVICES: Tracheostomy tube in satisfactory position. OTHER FINDINGS: . . IMPRESSION: Cardiomegaly with mild congestion.
[2024-09-04] MEDS ORDERED: Vital High Protein 1liter Bottle GT SCH (09:00)
[2024-09-04] MEDS ORDERED: POTASSIUM CHL 20MEQ/100ML 100 ML IV SCH (09:15)
--- NOTE | 2024-09-04 10:42 | DVHPN2 ---
Progress Note - Dictate Date Seen: Sep 04, 2024 Medical Necessity Reason Pt with a Central, PICC or Fol: Yes The following are medically ne: PICC Line, Vigil Catheter Reason for vigil catheter: Strict I&O Subjective Ms. Recinos is a 73 years old female with a history of hypertension, dyslipidemia, coronary artery disease, heart attack, congestive heart failure, asthma, COPD on home oxygen, gout, anemia, the patient was admitted found her fdc on 08/11/2024 with a chief company of shortness of breath I have seen and examined the patient, I have talked to her nurse. Eyes are slightly open, she is questionably responsive to my verbal stimuli, she does not follow verbal commands, she does not move her extremities She closed her eyes tightly if they were touched PEG tube inserted on 09/02/2024 ABG, 08/12/2024: Respiratory acidosis, hypoxia WBC/HB/PLT/MCV, 08/12/2024: 7.2/11.9/302/85.7, 08/19/2024: 13.9/12.9/167/86.5 CMP, 08/12/2024: Unremarkable HGB A1c, 04/11/2024: 500 TBI/AST/ALT/AP, 08/19/2024: 0.19/61/108/86 TG/HDL/LDL/HDL, 05/2023: 101/6/186/45 Vitamin B12, 03/2024: 1161 TSH, 03/2024: 1.39 EEG 08/13/2024: Remarkably abnormal Extremity venous study, 08/13/2024: No evidence of right or left femoropopliteal venous thrombosis. Chest x-ray, 08/12/2024: Left central venous catheter overlies the left upper chest and may be not position. Clinical correlation advised. Endotracheal tube in satisfactory position. Left central venous catheter in uncertain position Chest x-ray, 08/15/24: Hazy bilateral opacities are unchanged CXR, 08/26/2024: Pulmonary venous congestion CT head, 08/12/2024: Very mild cortical atrophy otherwise unremarkable study CT head, 08/17/2024: No acute intracranial abnormality CT head, 08/24/2024: 1. No acute intracranial hemorrhage. 2. No CT findings of territorial ischemia CTA chest, 08/13/2024: Grossly enlarged pulmonary arteries underlying pulmonary arterial hypertension is suspected no pulmonary embolus There are bilateral infiltrates in the lung bases MRI brain, 07/17/24: No acute intracranial pathology MRI brain, 08/28/2024: No evidence of acute infarction, intracranial hemorrhage, mass effect or hydrocephalus. Mild changes of chronic microvascular ischemic disease. 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 Right mastoid effusion. vital signs Vital Sign Date Time Temp Pulse Resp B/P (MAP) Pulse Ox O2 Delivery O2 Flow Rate FiO2 09/04/24 10:30 79 18 121/75 (90) 100 09/04/24 10:00 Mechanical Ventilator+ 30 30 09/04/24 08:00 97.8 97.8 Total Intake and Output 09/03/24 09/03/24 09/04/24 15:00 23:00 07:00 Intake Total 600 ml 714 ml Output Total 200 ml 500 ml Balance 400 ml 214 ml medications Current Medications Medications Dose Ordered Sig/Kristen Route Start Time Stop Time Status Last Admin Dose Admin Ondansetron HCl 4 mg Q4HP PRN IV 08/11/24 13:00 Acetaminophen 650 mg Q6HP PRN PO 08/11/24 13:00 Albuterol 2.5 mg Q6HWA NEB 08/11/24 18:00 09/04/24 06:43 2.5 MG Ipratropium Bimble 0.5 mg Q6HWA NEB 08/11/24 18:00 09/04/24 06:43 0.5 MG Albuterol 2.5 mg Q2HPRN PRN NEB 08/11/24 20:45 08/20/24 10:09 2.5 MG Ipratropium Bimble 0.5 mg Q2HPRN PRN NEB 08/11/24 20:45 08/20/24 10:09 0.5 MG Pantoprazole Sodium 40 mg DAILY IV 08/13/24 10:00 09/04/24 09:00 40 MG Sodium Chloride 10 ml QSHIFT@10,22 IV 08/20/24 22:00 09/04/24 09:00 10 ML Diagnostic Test (Pha) 1 strip ACHS 08/23/24 17:00 09/04/24 06:33 1 STRIP Insulin Human Regular ACHS SC 08/23/24 17:00 09/03/24 17:24 2 UNITS Dextrose 50 ml UD PRN IV 08/23/24 14:15 Bisacodyl 10 mg QHSP PRN PA 08/24/24 14:15 Potassium Chloride 100 ml @ 50 mls/hr Q2H IV 08/24/24 22:00 08/25/24 01:59 UNV Lorazepam 1 mg ONCE PRN IV 08/27/24 10:00 Purified Water 300 ml Q6HR GT 09/02/24 18:00 09/04/24 06:00 300 ML Hydralazine HCl 10 mg Q6HP PRN IV 09/02/24 17:45 Enteral Nutritional Formula 1,000 ml 40ML/HR GT 09/04/24 09:00 Potassium Chloride 100 ml @ 50 mls/hr Q2H IV 09/04/24 09:15 09/04/24 13:14 UNV Potassium Chloride 50 ml @ 25 mls/hr Q2H IV 09/04/24 10:15 09/04/24 14:14 objective The patient is well-nourished and well-developed with no distress. MENTAL STATUS: Subjective, CRANIAL NERVES: pupils are round and reactive to light briskly, normal external eye movement, normal sensation and motor examination in the lateral trigeminal nerve distribution, no facial weakness SENSATION: Responses to pain stimuli. MOTOR: Normal tone in the upper and lower extremity. Normal muscle bulk. No fasciculations. No spontaneous extremity movement REFLEXES: Deep tendon reflexes are symmetrical. No pathological reflexes. CEREBELLAR/COORDINATION: Deferred GAIT/STATION: deferred. laboratory and microbiology Laboratory Tests 09/04/24 04:45 Test 09/04/24 04:45 Range/Units Serum Glucose 120 H 74-106 mg/dL Problem List Coma, resolved Hypoxic encephalopathy Metabolic encephalopathy Toxic encephalopathy Cardiopulmonary arrest Respiratory failure Hypoxia Status post CPR Sepsis Pneumonia Acidosis Seizure-like activity to rule out seizure attack Reported anisocoria with right-sided slightly bigger on 08/14/2024, evident physical examination on 08/19/2024, 09/03/2024 ? Vegetative status Assessment/Plan Monitoring Supportive treatment ICU care Follow-up labs Respiratory support Stabilize vitals Antibiotics Oxygen DVT prophylaxis GI prophylaxis Up to chair Physical therapy Need a feeding tube More recommendation per clinical course The patient may have a poor prognosis for adequate/good meaningful recovery This medical document was created using an electronic medical record system with [employer] system. Although this document has been carefully reviewed, there may still be some phonetic and typographical errors. These areas are purely typographical due to imperfections of the software programs, and do not reflect any compromise in the patient's medical care. Prognosis poor Dietary Evaluation Review Recommendations by RD: Protein Supplementation Comments: 1) Increase TF rate from 30 mL/hr to 35 mL/hr. Initiate Pro-Stat @ 30 mL bid. Goal rate (including Pro-Stat) will provide 1208 kcals, 77g Pro, and 1178 mL free H2O (including flushes) per 24 hrs. Goal rate will meet ~ 100% estimated daily energy needs and ~94% estimated daily protein needs 2) Initiate vitamin C @ 500 mg and zinc sulfate @ 220 mg qd for 7 days 3) Advance to cardiac diet when medically feasible, pending GEOMORPHOLOGIST approval 4) F/u with cardiology and pulmonology 5) Continue to monitor I&O, labs, and skin integrity Expected Outcomes/Goals: 1) appetite and labs to improve 2) diet to advance 3) f/u in 2-3 Interpretation of weight loss: up to 20% in 1 year Plan discussed with: Other PATRIZIA SHERWOOD MD Sep 04, 2024 10:42
--- NOTE | 2024-09-04 10:56 | DVHPNRES ---
Progress Note Date Seen: Sep 04, 2024 Resident Creating Document: CRISTIANA KIRKLAND RESIDENT Medical Necessity Reason Pt with a Central, PICC or Fol: Yes The following are medically ne: PICC Line, Vigil Catheter Reason for vigil catheter: Strict I&O Subjective Review of Systems Patient is a 73-year-old female with a past medical history of asthma, COPD on home oxygen at 2 L/min, coronary artery disease with a NM, CHF, pulmonary hypertension, hyperlipidemia, rheumatoid arthritis presented to the hospital with a chief complaint of shortness of breath. Patient reported having chest pain and shortness of breath for few days before coming into the hospital. She was admitted a month ago and was diagnosed with pneumonia, following discharge patient was sent to [facility] for rehabilitation. Initial chest x-ray showed bibasilar airspace opacities suspicious for pneumonia. Patient was initially managed on the [facility] floor with IV antibiotics, breathing treatments, IV steroids. One day after admission patient went into cardiopulmonary arrest , following which CPR was initiated and ROSC was achieved and patient was shifted to ICU level of care. While in the ICU patient was treated for COPD exacerbation likely due to pneumonia with a mucous plugging following which bronchoscopy was done. Patient was tried to wean off mechanical ventilatory support with multiple spontaneous breathing CPAP trials which she failed and continues to be on ventilator support. Tracheostomy was done on August 27. Patient has been off sedation since July. Patient is currently awaiting PEG tube placement and discharge to LTAC Past medical history: COPD, asthma, pulmonary hypertension, CAD, NM, hypertension, hyperlipidemia, diabetes mellitus type 2, COPD, asthma, gout, rheumatoid arthritis, anemia Past surgical history: tubal ligation, right foot surgery, tonsillectomy, bilateral total knee replacement, right eye surgery, Social history: Denies smoking, alcohol, drug use Review of systems Patient seen and examined at the bedside On assessment of the mental status patient had spontaneous eye opening but did not respond to voice commands or painful stimuli. Patient remained hemodynamically stable , no fevers and currently not on any vasopressor support Objective vital signs Vital Sign Date Time Temp Pulse Resp B/P (MAP) Pulse Ox O2 Delivery O2 Flow Rate FiO2 09/04/24 10:30 79 18 121/75 (90) 100 09/04/24 10:00 Mechanical Ventilator+ 30 30 09/04/24 08:00 97.8 97.8 Total Intake and Output 09/03/24 09/03/24 09/04/24 15:00 23:00 07:00 Intake Total 600 ml 714 ml Output Total 200 ml 500 ml Balance 400 ml 214 ml medications Current Medications Medications Dose Ordered Sig/Kristen Route Start Time Stop Time Status Last Admin Dose Admin Ondansetron HCl 4 mg Q4HP PRN IV 08/11/24 13:00 Acetaminophen 650 mg Q6HP PRN PO 08/11/24 13:00 Albuterol 2.5 mg Q6HWA NEB 08/11/24 18:00 09/04/24 06:43 2.5 MG Ipratropium Nora 0.5 mg Q6HWA NEB 08/11/24 18:00 09/04/24 06:43 0.5 MG Albuterol 2.5 mg Q2HPRN PRN NEB 08/11/24 20:45 08/20/24 10:09 2.5 MG Ipratropium Nora 0.5 mg Q2HPRN PRN NEB 08/11/24 20:45 08/20/24 10:09 0.5 MG Pantoprazole Sodium 40 mg DAILY IV 08/13/24 10:00 09/04/24 09:00 40 MG Sodium Chloride 10 ml QSHIFT@ IV 08/20/24 22:00 09/04/24 09:00 10 ML Diagnostic Test (Pha) 1 strip ACHS 08/23/24 17:00 09/04/24 06:33 1 STRIP Insulin Human Regular ACHS SC 08/23/24 17:00 09/03/24 17:24 2 UNITS Dextrose 50 ml UD PRN IV 08/23/24 14:15 Bisacodyl 10 mg QHSP PRN IA 08/24/24 14:15 Potassium Chloride 100 ml @ 50 mls/hr Q2H IV 08/24/24 22:00 08/25/24 01:59 UNV Lorazepam 1 mg ONCE PRN IV 08/27/24 10:00 Purified Water 300 ml Q6HR GT 09/02/24 18:00 09/04/24 06:00 300 ML Hydralazine HCl 10 mg Q6HP PRN IV 09/02/24 17:45 Enteral Nutritional Formula 1,000 ml 40ML/HR GT 09/04/24 09:00 Potassium Chloride 100 ml @ 50 mls/hr Q2H IV 09/04/24 09:15 09/04/24 13:14 UNV Potassium Chloride 50 ml @ 25 mls/hr Q2H IV 09/04/24 10:15 09/04/24 14:14 Examination Constitutional: Patient has spontaneous eye opening but is unresponsive to vocal or painful stimuli Gen - no pallor, no icterus, no cyanosis, no clubbing, no LAD, no edema . Skin - Patients skin is warm and dry.. HEENT - normocephalic, atraumatic, dry mucous membranes. Neck - full ROM, no LAD, no JVD Pulmonary - B/L equal breath sounds with a minimal basilar crackles, no wheezing cardiovascular - variable S1,S2 heard, no added sounds, no murmurs heard. capillary refill normal <2 secs. GI - soft abdomen, nondistended. Bowel sounds normoactive Neurological - patient on mechanical ventilation, no sedation but delirious with spontaneous eye opening but no responds to vocal or painful stimuli. Gag reflex present, plantar reflex downgoing, pupils equal and reactive laboratory and microbiology Laboratory Tests 09/04/24 04:45 Test 09/04/24 04:45 Range/Units Serum Glucose 120 H 74-106 mg/dL Microbiology Date/Time Source Procedure Growth Status 09/02/24 20:54 Blood Blood Culture - Preliminary NO GROWTH AFTER 24 HOURS OF INCUBATION. Resulted 09/02/24 17:26 Urine - Vigil Port Urine Culture - Preliminary Resulted 08/25/24 13:42 Nose MRSA Screen - Final Complete 08/13/24 02:49 Sputum Gram Stain - Final Complete 08/13/24 02:49 Sputum Respiratory Culture - Final Complete Problem List/Assessment/Plan Problem List/Assessment/Plan Neurology # acute metabolic / hypoxic encephalopathy status post cardiopulmonary arrest # ?vegetative status - spontaneous eye opening but nonresponsive - CT head on 08/12- showed very mild cortical atrophy otherwise unremarkable - MRI brain on 08/14- showed no acute intracranial pathology - repeat MRI brain on 08/28- showed no evidence of acute infarction, intracranial hemorrhage, mass effect or hydrocephalus, mild changes of chronic microvascular ischemic disease, stable configuration of lateral ventricles likely colpocephaly - neurology consulted who assessed the patient with possible vegetative state and recommends continuing supportive treatment Respiratory # acute hypercarbic/hypoxemic respiratory failure status post mechanical ventilation # respiratory alkalosis without compensation # mucus plugging s/p bronchoscopy # pulmonary edema - ABG reviewed, compensated - on mechanical ventilation with a peep 5, FiO2 30%, tidal volume 350 mL, RR 14 PaO2/FiO2 300 - bronchoscopy done on 11/12 which showed left lower lobe atelectasis due to mucus plugging from L6-L10 and R1-R3 - patient has tracheostomy done on 08/27 - albuterol and ipratropium nebulizer q.6 hours - pending transferred to LTACH - patient was put on a trach collar she tolerated for 3 hours and again had to be put on mechanical ventilation . Cardiovascular # S/P cardiopulmonary arrest with a ROSC # Septic shock, resolved # hypertensive heart disease with diastolic heart failure # new onset atrial fibrillation # pulmonary hypertension - patient currently not on any vasopressor support and is hemodynamically stable Nephrology # HECTOR likely due to VMN, resolved # Hypernatremia # hypokalemia - free water via NG tube 300 mL per q.6 hours - was on D5W, stopped after hypernatremia resolved - monitoring labs Gastrointestinal # s/p PEG tube placement - normoactive bowel sounds with bowel movement - started on nutrition with Glucerna at 30 mL/hour and ProStat 30 mL b.i.d. Infectious disease # UTI - urine culture from 08/23 showed growth of presumptive Nell albicans - blood cultures, respiratory sputum cultures from 08/13 negative for any growth - d/c ertapenam - repeat urine cultures on 09/02 showed no growth - repeat blood cultures on 09/02 show no growth after 24 hours Endocrinology # type 2 diabetes mellitus with hyperglycemia # obesity -on ISS Musculoskeletal # rheumatoid arthritis # gout -continue current management PUD prophylaxis: Protonix DVT prophylaxis: Enoxaparin held because of thrombocytopenia PICC line left upper arm- placed on 08/20 Vigil's catheter- changed on 08/26 Goals of care discussed with the patient's son for over 25 minutes. Code status full code Critical care time spent excluding procedures: 63 minutes Plan discussed with Dr. Hernandez Plan discussed with: Son (Charles), Other (RN ( Lisa )) My Orders My Orders Orders - CRISTIANA KIRKLAND RESIDENT Procedure Category Date Status Time Chest Xray 1 View XY 09/04/24 Resulted 04:00 Nutritional PHA 09/04/24 In Process Supplements (Vital 09:00 Potassium Chl PHA 09/04/24 In Process 20meq/50ml (Potassium 10:15 Dietary Evaluation Review Recommendations by RD: Protein Supplementation Comments: 1) Increase TF rate from 30 mL/hr to 35 mL/hr. Initiate Pro-Stat @ 30 mL bid. Goal rate (including Pro-Stat) will provide 1208 kcals, 77g Pro, and 1178 mL free H2O (including flushes) per 24 hrs. Goal rate will meet ~ 100% estimated daily energy needs and ~94% estimated daily protein needs 2) Initiate vitamin C @ 500 mg and zinc sulfate @ 220 mg qd for 7 days 3) Advance to cardiac diet when medically feasible, pending HOG FEEDER approval 4) F/u with cardiology and pulmonology 5) Continue to monitor I&O, labs, and skin integrity Expected Outcomes/Goals: 1) appetite and labs to improve 2) diet to advance 3) f/u in 2-3 Interpretation of weight loss: up to 20% in 1 year Date of Service: Sep 04, 2024 Billing Provider: ROSHAN HERNANDEZ MD Common Visit Codes: 28160-[id number] CARE 30-74 MIN CRISTIANA KIRKLAND RESIDENT Sep 04, 2024 10:56 ROSHAN HERNANDEZ MD Sep 06, 2024 20:27
[2024-09-04] MEDS: POTASSIUM CHL 20MEQ/50ML 50 ML IV SCH (10:58)
[2024-09-04 13:16] LABS: Base Excess -0.5 mmol/L (-2.0-3.0)
--- NOTE | 2024-09-04 19:40 | DVHDSRES ---
Discharge Summary Date of Admission Resident Creating Document: CRISTIANA KIRKLAND RESIDENT Aug 11, 2024 at 12:58 Date of Discharge: Sep 04, 2024 Admitting Diagnosis Pneumonia, CHF, COPD, CAD, Hyperlipidemia, Hypertension, Asthma, Wounds: minor sacral grade 1 tear ( less than 0.5cm ) Labs/Diagnostic Data: Laboratory Results Test 09/04/24 16:42 09/04/24 13:05 09/04/24 04:45 09/03/24 04:45 POC Glucose 125 mg/dl (70-106) Blood Gas Specimen Type Arterial Blood Gas Sample Site Right radial Blood Gas Patient Temperature 37.0 Arterial Blood Date Drawn [id number] Arterial Blood pH 7.464 (7.350-7.450) Arterial Blood Partial Pressure CO2 32.4 mmHg (32.0-45.0) Arterial Blood Partial Pressure O2 141.3 mmHg (83.0-108.0) Arterial Blood HCO3 22.7 mmol/L (21.0-28.0) Arterial Blood Oxygen Saturation 98.5 % (94.0-98.0) Arterial Blood Base Excess -0.5 mmol/L (-2.0-3.0) Arterial Blood Oxyhemoglobin 98.0 % (94.0-98.0) Arterial Blood Carboxyhemoglobin 0.1 % (0.5-1.5) Arterial Blood Methemoglobin 0.4 % (0.0-1.5) Harpreet Test Modified Blood Gas Total Hemoglobin 11.20 g/dL (12.0-16.0) Blood Gas Liter Flow 10.00 Blood Gas Modality Cool aerosol Blood Gas Spontaneous Rate 24 FiO2 % 40.0 White Blood Count 10.9 10^3/uL (4.4-10.8) Red Blood Count 3.81 10^6/uL (4.0-5.20) Hemoglobin 10.6 g/dL (12.2-16.2) Hematocrit 32.1 % (36.0-46.0) Mean Corpuscular Volume 84.3 fL (80.0-100.0) Mean Corpuscular Hemoglobin 27.8 pg (28.0-32.0) Mean Corpuscular Hemoglobin Concent 33.0 g/dL (32.0-36.0) Red Cell Distribution Width 16.4 % (11.8-14.3) Platelet Count 105 10^3/uL (140-450) Mean Platelet Volume 10.3 fL (6.9-10.8) Neutrophils (%) (Auto) 70.8 % (37.0-80.0) Lymphocytes (%) (Auto) 21.6 % (10.0-50.0) Monocytes (%) (Auto) 6.1 % (0.0-12.0) Eosinophils (%) (Auto) 1.1 % (0.0-7.0) Basophils (%) (Auto) 0.4 % (0.0-2.0) Neutrophils # (Auto) 7.7 10 ^3/uL (1.6-8.6) Lymphocytes # (Auto) 2.4 10 ^3/uL (0.4-5.4) Monocytes # (Auto) 0.7 10 ^3/uL (0-1.3) Eosinophils # (Auto) 0.1 10 ^3/uL (0-0.8) Basophils # (Auto) 0 10 ^3/uL (0-0.2) Nucleated Red Blood Cells 0.0 % Sodium Level 138 mmol/L (136-145) Potassium Level 3.4 mmol/L (3.5-5.1) Chloride Level 103 mmol/L (98-107) Carbon Dioxide Level 26 mmol/L (20-31) Anion Gap 9 (5-15) Blood Urea Nitrogen 31 mg/dL (9-23) Creatinine 0.99 mg/dL (0.550-1.02) Glomerular Filtration Rate Calc 61 mL/min (>90) BUN/Creatinine Ratio 31.3 (10.0-20.0) Serum Glucose 120 mg/dL (74-106) Calcium Level 9.2 mg/dL (8.7-10.4) Magnesium Level 2.1 mg/dL (1.6-2.6) Phosphorus Level 2.9 mg/dL (2.4-5.1) Test 09/02/24 17:26 09/02/24 09:21 09/02/24 04:50 08/30/24 08:45 Urine Color Light-brown (Yellow) Urine Clarity Turbid (Clear) Urine pH 6.0 (5.0-9.0) Urine Specific [place] 1.015 (1.001-1.035) Urine Protein 2+ (Negative) Urine Ketones Negative (Negative) Urine Blood 3+ /uL (Negative) Urine Nitrite Negative (Negative) Urine Bilirubin Negative (Negative) Urine Urobilinogen Normal mg/dL (Negative) Urine Leukocyte Esterase 3+ /uL (Negative) Urine RBC 2710 /hpf (0 - 4) Urine WBC Clumps Present /hpf (None Seen) Urine Microscopic WBC 299 /HPF (0-5) Urine Squamous Epithelial Cells Few /hpf (<5) Urine Bacteria None seen /hpf (None Seen) Urine Mucus Few (None Seen) Urine Glucose Normal mg/dL (Normal) Blood Gas Set Respiration Rate 14.0 Blood Gas Tidal Volume 350.0 Blood Gas PEEP or CPAP 5.0 Total Bilirubin 0.8 mg/dL (0.2-1.0) Aspartate Amino Transferase (AST) 39 U/L (13-40) Alanine Aminotransferase (ALT) 36 U/L (7-40) Alkaline Phosphatase 121 U/L (46-116) Total Protein 5.9 g/dL (5.7-8.2) Albumin 3.9 g/dL (3.2-4.8) Blood Gas Critical Value Read Back Yes Blood Gas Notified Whom domenico Santos np Blood Gas Notified Time [id number] Blood Gas Notified By Curriculum And Assessment Coordinator sherri Edge 08/29/24 04:41 08/25/24 08:17 08/24/24 05:14 08/23/24 18:36 Prothrombin Time 11.4 sec (9.3-11.8) Prothrombin Time INR 1.08 (0.9-1.15) Activated Partial Thromboplast Time 24.7 SEC (24.5-34.5) Differential Total Cells Counted 100.0 (100) Neutrophils % (Manual) 93 (37.0-80.0) Band Neutrophils % (Manual) 0 Lymphocytes % (Manual) 4 (10.0-50.0) Monocytes % (Manual) 3 (0-12) Eosinophils % (Manual) 0 (0-7) Basophils % (Manual) 0 (0.0-2.0) Metamyelocytes % (manual) 0 Myelocytes % (Manual) 0 Promyelocytes % (Manual) 0 Blast Cells % (Manual) 0 Reactive Lymphocytes 0 Platelet Estimate Adequate B-Type Natriuretic Peptide 301.08 pg/mL (0-100) Random Vancomycin Level 18.1 ug/mL (5-10) Urine Yeast (Budding) Few /hpf (None Seen) Test 08/23/24 05:35 08/22/24 16:04 08/16/24 06:32 08/14/24 04:30 Creatine Kinase 22 U/L (34-145) Vancomycin Level Trough 25.4 ug/mL (5-10) Blood Gas Comments Urine Uric Acid Crystals Many /hpf (None Seen) Urine Hyaline Casts Few /lpf (0 - 2) Test 08/12/24 21:25 08/12/24 15:55 08/12/24 15:28 08/11/24 11:40 Blood Gas Spontaneous Tidal Volume 400 Bl Gas Inspiratory/Expiratory Ratio 1:2.4 Specimen Drawn By Rocael keller D-Dimer, Quantitative 22.61 mg/L FEU (0.0-0.49) Blood Gas Inspiratory Pressure 33.0 Troponin I High Sensitivity 23 ng/L (</=34) Other Laboratory Tests 09/04/24 04:45 Brief Hx & Hospital Course: Patient is a 73-year-old female with a past medical history of asthma, COPD on home oxygen at 2 L/min, coronary artery disease with a SC, CHF, pulmonary hypertension, hyperlipidemia, rheumatoid arthritis presented to the hospital with a chief complaint of shortness of breath. Patient reported having chest pain and shortness of breath for few days before coming into the hospital. She was admitted a month ago and was diagnosed with pneumonia, following discharge patient was sent to [facility] for rehabilitation. Initial chest x-ray showed bibasilar airspace opacities suspicious for pneumonia. Patient was initially managed on the [facility] floor with IV antibiotics, breathing treatments, IV steroids. One day after admission patient went into cardiopulmonary arrest , following which CPR was initiated and ROSC was achieved after 18 mins of CPR and patient was shifted to ICU level of care. While in the ICU patient was treated for COPD exacerbation likely due to pneumonia with a mucous plugging following which bronchoscopy was done. Patient was tried to wean off mechanical ventilatory support with multiple spontaneous breathing CPAP trials which she failed and continues to be on ventilator support. Tracheostomy was done on August 27. Neurology assessed the patient, CT head without contrast and brain MRI without contrast was done which showed no acute intracranial abnormality and neurology assessed her likely to be in a vegetative state. Patient's vasopressor requirement came down and was eventually weaned off. Patient was hemodynamically stable and had been off sedation since July. Patient was underwent PEG tube placement following which feedings were started which she tolerated well. Repeat blood cultures, urine cultures, sputum culture showed no growth. Patient did have mild hypokalemia for which adequate replacement were given. Patient was tried to be put on a trach collar twice but she could not tolerate it for a long period of time and had to be ventilated mechanically. Patient's prognosis is guarded and she is being transferred to LTAC for further care. Discharge plan Discharged disposition: LTAC On mechanical ventilation Medications: Mild Insulin sliding scale a.c. HS, purified water 300 mL GT q.6 hours Diet: While in the hospital patient was on Glucerna with a which she had diarrhea, currently stopped. Dieticians recommend EN Osmolite 1.2 Jose Alejandro @ 45 mL/hours along with ProStat 1 packet daily Consults/Reason for consult Surgical consult for tracheostomy Surgical consult for PEG tube placement Cardiology consult for atrial fibrillation Operations or Procedures Procedure: Endotracheal Intubation INDICATION: Acute respiratory failure, accessory muscle usage Physician: Edith White MD PGY3 Attending: Dr Hernandez CONSENT: Emergent procedure. Implied. Patient medications and allergies reviewed. Patient identification and proposed procedure were verified prior to the procedure by the physician, and a nurse in the patient's room. The heart rate, respiratory rate, oxygen saturations, blood pressure, adequacy of pulmonary ventilation, and response to care were monitored throughout the procedure. The physical status of the patient was reassessed after the procedure. PROCEDURE SUMMARY: A time out was performed. My hands were washed immediately prior to the procedure. I wore a surgical cap, mask with protective eyewear, gown and gloves throughout the procedure. The patient was placed on a monitoring analyst including continuous pulse oximetry. The patient received 16 mg Etomidate and 50 mg rocuronium for induction. Cricoid pressure was maintained from time induction agent was given to time of cuff balloon inflation. Using a MAC 4 GlideoScope and a size 8.0 endotracheal tube with stylet, the patient was intubated on the1st attempt. Patient was very anterior. The stylet was removed and cuff balloon was inflated. Appropriate endotracheal tube position was confirmed by direct visualization of vocal cord passage, fogging of the tube, CO2 colorimetric indicator and symmetric breath sounds. The tube was secured at 21 cm at the lips. Post intubation chest x-ray is demonstrates the ETT between 6 cm above the olman. CPT Code: 73272 EDITH WHITE RESIDENT Aug 12, 2024 13:29 ULTRASOUND-GUIDED LEFT INTERNAL JUGULAR CENTRAL VENOUS CANNULATION CPT Codes: 77719 (ultrasound guidance) 50767 (insertion of non-tunneled centrally inserted central venous catheter) 07398 (CXR interpretation) Attending: Dr Hernandez Resident: Dr White PGY3 Patient medications and allergies reviewed. The risks and benefits of the procedure and the sedation options and risk were discussed with the patient's healthcare proxy. All questions were answered and informed consent was obtained. Patient identification and proposed procedure were verified prior to the procedure by the physician, and a nurse in the patient's room. The heart rate, respiratory rate, oxygen saturations, blood pressure, adequacy of pulmonary ventilation, and response to care were monitored throughout the procedure. The physical status of the patient was reassessed after the procedure. DATE: 08/12/2024 PHYSICIAN: Edith White PREOPERATIVE DIAGNOSIS: Shock, Cardiogenic vs Septic POSTOPERATIVE DIAGNOSIS: Shock, Cardiogenic vs Septic PROCEDURE PERFORMED: Limited Ultrasound-guided LEFT internal jugular central line placement. ANESTHESIA: 2 mL of 1% lidocaine plain. ESTIMATED BLOOD LOSS: less than 5 mL. SPECIMENS: None. COMPLICATIONS: None. INDICATIONS FOR PROCEDURE: The patient is in need of large bore IV access for administration of fluids, including blood products and vasoactive drugs, possible transvenous cardiac pacing and CVP monitoring for hemodynamic instability. DESCRIPTION OF PROCEDURE IN DETAIL: The patient was lying in the Trendelenburg position with head turned 30 degrees away from the insertion site. The skin was thoroughly sponged with chlorhexidine and allowed to dry. All persons involved were shielded with hair nets, face masks and sterile gowns. With sterile-gloved hands the LEFT neck area was draped with the large disposable sterile field provided in the pre-manufactured kit. The skin and subcutaneous tissues superficial to the LEFT internal jugular vein were anesthetized with 2 mL of 1% lidocaine. The LEFT internal jugular vein was identified on ultrasound from the angle of the mandible down into the supraclavicular fossa using the linear ultrasound probe in the transverse orientation. The carotid artery was identified and avoided utilizing color-flow. The internal jugular vein was then placed in the center of the ultrasound field and compressed for patency. A movement artifact was identified as the needle was advanced through the skin and advanced toward the vessel. A real time hyperechoic signal revealed visualization of vascular needle entry into the lumen as blood was noted to flashback in the syringe. The needle was then held in place while the guide wire was advanced. The needle was then removed. Direct visualization of guide wire location within the vein was noted on ultrasound indicating proper placement and was document in the electronic medical record chart. A skin dilator was advanced over the guidewire and removed, and the triple-lumen catheter was then advanced over the guide wire into proper position. The guide wire was removed and discarded. The ports were aspirated which showed good blood return and then carefully flushed with normal saline. The catheter was stabilized and sutured to the skin with 2-0 silk at 2 anchor points. A sterile bio-patch and dressing was placed over the catheter, including the insertion site. The patient tolerated the procedure well. A chest x-ray was ordered for position confirmation. I reviewed the image immediately after it was taken at bedside. Post-procedure chest x-ray demonstrates the central line in the superior vena and no evidence of any pneumothorax. An image recording of the procedure accompanies the chart. ROSHAN HERNANDEZ MD 08/17/24 1158: Date of Service: Aug 12, 2024 Billing Provider: ROSHAN HERNANDEZ MD Common Visit Codes: PROCEDURE ONLY Procedure Codes: [id number] NON-TUNNEL CV CATH EDITH WHITE Aug 12, 2024 13:38 ROSHAN HERNANDEZ MD Aug 17, 2024 11:58 Therapeutic Bronchoscopy procedure note: Indications: poor air entry, Possible mucous plugging. Medicines: See NUT PACKER notes. Complications: None Attending: Dr Hernandez Resident: Dr Domenico White PGY3. Procedure: Patient medications and allergies reviewed. The risks and benefits of the procedure and the sedation options and risk were discussed with the patient's healthcare proxy. All questions were answered and informed consent was obtained. Patient identification and proposed procedure were verified prior to the procedure by the physician, and a nurse, and the respiratory therapist in ICU room. The heart rate, respiratory rate, oxygen saturations, blood pressure, adequacy of pulmonary ventilation, and response to care were monitored throughout the procedure. The physical status of the patient was reassessed after the procedure. After obtaining informed consent, the bronchoscope was introduced through the endotracheal tube and advanced into the trachea bronchial tree of both lungs. The procedure was accomplished without difficulty. The patient tolerated the procedure well. Findings: The trachea is in normal caliber. The olman is sharp. The tracheobronchial tree of the right lung was examined to at least the first subsegmental level. The bronchial mucosa and anatomy in the right lung are normal. There are no endobronchial lesions. There was copious whitish secretions from right main stem bronchus onward throughout R1-R3. The left upper lobe, lingula, and left lower lobe were examined to at least the first subsegmental level. Bronchial mucosa and anatomy in the left upper lobe and lingula are normal. There were no endobronchial lesions. There was copious whitish secretions from left main stem bronchus onward throughout L6-L10. Mucous plugging removed from L6-L10. There was no active bleeding at the completion of the procedure. Estimated blood loss: Less than 5 mL. Impression: Left lower lobe atelectasis due to mucous plugging Mucous plugging from L6-L10 and R1-R3 Recommendation: Pulmonary toileting Procedure codes: 24614, bronchoscopy, rigid and flexible, including fluoroscopic guidance, one performed; with bronchial endobronchial removal of mucous plugging, single or multiple sites ROSHAN HERNANDEZ MD 08/17/24 1158: Date of Service: Aug 12, 2024 Billing Provider: ROSHAN HERNANDEZ MD Common Visit Codes: PROCEDURE ONLY Procedure Codes: [id number] EDITH WHITE Aug 12, 2024 13:46 ROSHAN HERNANDEZ MD Aug 17, 2024 11:58 Right Radial Arterial Line procedure note Indication: Hemodynamic monitoring, frequent blood ABG draws. Glazier Supervisor: Dr. White Date: 08/12/24 Time: 1415 hours Consent: Consent was obtained from patient's healthcare proxy prior to procedure. Indications, risks, and benefits were explained at length. Patient medications and allergies reviewed. The risks and benefits of the procedure and the sedation options and risk were discussed with the patient's healthcare proxy. All questions were answered and informed consent was obtained. Patient identification and proposed procedure were verified prior to the procedure by the physician, and a nurse in the patient's room. The heart rate, respiratory rate, oxygen saturations, blood pressure, adequacy of pulmonary ventilation, and response to care were monitored throughout the procedure. The physical status of the patient was reassessed after the procedure. Procedure summary: A time-out was performed. My hands were washed immediately prior to the procedure. I wore surgical cap, mask with protective eyewear, sterile gown and sterile gloves throughout the procedure. After an Harpreet test was performed to ensure adequate perfusion, the RIGHT wrist was prepped using chlorhexidine scrub and draped in sterile fashion using sterile towels. The radial pulse was identified with the use of ultrasound. The wrist was positioned in the usual fashion. Anesthesia was achieved using 1% lidocaine. Using the radial arterial line kit, needle was inserted into the radial artery using ultrasound guidance. Arterial blood flow was seen to pulsate in the flash chamber. The internal guidewire was advanced easily into the radial artery. The catheter was then advanced over the wire and the needle and wire were withdrawn. The catheter was sutured into place with 1 sutures. A sterile Biopatch and Tegaderm was placed over the catheter at the insertion site. The patient tolerated the procedure without any hemodynamic compromise. At the time of procedure completion, the catheter was connected to the monitoring analyst and calibrated. Appropriate waveform and blood pressure tracing was observed. Estimated blood loss is less than 5 mL. CPT: 17801 Arterial line insertion CPT: 98943 add-on EDITH WHITE MD Aug 12, 2024 22:07 DATE OF SURGERY: 08/27/2024 PREOPERATIVE DIAGNOSIS: Ventilator dependence. POSTOPERATIVE DIAGNOSIS: Ventilator dependence. PROCEDURE: Elective tracheostomy. SURGEON: Shelby Olmos MD PROJECT MANAGER FINANCE: None. ANESTHESIA: General. BLOOD LOSS: Close to 5 mL. DRAINS: No drains were used. COMPLICATIONS: No complications were encountered. DESCRIPTION OF PROCEDURE: The patient was prepped and draped in the usual sterile fashion in the supine position with the neck extended out and the incision was applied in a transverse fashion anteriorly a finger and a half breadth above the sternal notch, going from the sternomastoid on the left side to the right side and then going around to the platysma. It was divided. The cervical fascia was divided in the midline. The strap muscles were retracted. The thyroid isthmus was divided and secured on either side with the Vicryl suture for hemostasis and then the tracheal rings were exposed, 2, 3 and 4. Cricoid hook was applied to retract the cricoid cartilage upwards and then a U-shaped flap was created on the second, third and fourth tracheal rings, starting from the mid inferior side and then the hinge was on the upper side. A Prolene suture was applied to secure the flap for future identification in case needed postoperatively. The opening was then identified and the ETT was withdrawn, suctioning was done. The opening was dilated and a size 7.5 tracheostomy tube was advanced into position, the bulb inflated to about 7-10 mL and the connection with the ventilator established with good flows as per anesthesia. With the tracheostomy in place, the suturing was done for the platysma on either side using Vicryl suture and skin incision was brought together on either side using silk suture interrupted mattress fashion. Xeroform strip was applied around it. There was no active bleeding noted and the flanges of the tracheostomy tube were secured in place using silk sutures in all 4 quadrants and the patient tolerated the procedure well and was taken back to the ICU in a stable condition. There were no injuries occurred to the major nerves or vessels during the procedure at any time. MD MANUEL Cummings/JOE/IVAN Operative Report DATE OF OPERATION: 09/02/24 PROCEDURE: Upper Endoscopy with PEG tube placement. PREOPERATIVE INDICATION: The patient is a 73 -year-old female undergoing endoscopy for peg tube placement due to ventilator dependence POSTOPERATIVE DIAGNOSES: 1. Patient had a 2-3 cm sliding-type hiatal hernia otherwise normal examination up to the 2nd part of the duodenal with no retained gastric contents 2. Percutaneous gastrostomy tube was placed through the anterior abdominal wall under sterile conditions by Dr. Domenico Olmos using endoscopic assistance and guidance as per standard protocol 3. Repeat endoscopy was performed to confirm adequate placement PROCEDURE PERFORMED BY: Hansa Olmos assistant media planner : Dr. Shelby Olmos GI NURSE: Jesse SCOPE: Olympus videoendoscope. ASA CLASS: 3 PREOPERATIVE MEDICATIONS: Versed 1 mg, Fentanyl 25 mcg, Benadryl 25 mg; pt on ventilator off sedation; IV Ancef 1 gm I administered moderate sedation throughout this __ minutes procedure. An independent trained observer pushed medications at my direction, and monitored the patient's level of consciousness and physiological status throughout. PROCEDURE IN DETAIL: After obtaining an informed consent, the patient was placed on left lateral decubitus position. The patient was then sedated with the above medications. A bite block was placed between her teeth. The endoscope was then passed through the oropharynx, into the esophagus, and through the stomach and pylorus up to the second part of the duodenum. The endoscope was then withdrawn. The stomach was insufflated and the light from the endoscope could be visualized externally Under sterile condition a percutaneous gastrostomy tube was placed through the anterior abdominal wall into the stomach by Dr. Domenico Olmos as per standard protocol using endoscopic guidance and assistance. A repeat endoscopy was performed to confirm adequate placement The G-tube site was dressed in a sterile fashion. Gastric biopsies were obtained. The endoscope was then withdrawn The patient tolerated the procedure well without difficulty. COMPLICATIONS : None SPECIMENS: Gastric biopsy DISPOSITION: Transfer back to the floor D/C to home PLAN: 1. Await for biopsy result 2. Will place pt on Protonix 40 mg IV daily 3. See postop PEG tube care instructions 4. Discussed with DELORIS nurse HANSA OLMOS MD Sep 02, 2024 16:52 Operative Report [id number] PEG RUBE PLACEMENT NO COMPLICATIONS EGD BY SHELBY SOLO MD Sep 02, 2024 16:38 Condition at Discharge: Guarded Final Diagnosis/Problems List # acute metabolic / hypoxic encephalopathy status post cardiopulmonary arrest # ?vegetative status # acute hypercarbic/hypoxemic respiratory failure status post mechanical ventilation # type 2 diabetes mellitus with hyperglycemia # obesity # UTI # s/p PEG tube placement # HECTOR likely due to VMN, resolved # Hypernatremia # hypokalemia # S/P cardiopulmonary arrest with a ROSC # Septic shock, resolved # hypertensive heart disease with diastolic heart failure # new onset atrial fibrillation # pulmonary hypertension # respiratory alkalosis without compensation # mucus plugging s/p bronchoscopy # pulmonary edema # rheumatoid arthritis # gout Discharge Disposition: Inpatient Rehab Facility Discharge Instruct/Medications Diet: See Comment Diet comment: TUBE FEEDINGS Activity: No Restrictions, As Tolerated Follow Up/Referral: Follow up with the MD at acute care facility Medications: As per EMR Discharge Statement: "Patient was advised to return to the ER or call 911 if any headaches, dizziness, shortness of breath, chest pain, abdominal pain, bleeding, fevers, or worsening of medical condition. Patient was counseled about treatment plan, medications, possible side effects, patientverbalized understanding. All questions were answered to the best of my ability. This discharge took greater then 30 minutes in planning, reviewing documentation, counseling the patient, and discussing with other team members." ASSESSMENT ASSESSMENT Assessment RESP FAILURE Date of Service: Sep 04, 2024 Billing Provider: ROSHAN HERNANDEZ MD Common Visit Codes: 33897-[facility] C[facility] 30-74 MIN CRISTIANA KIRKLAND RESIDENT Sep 04, 2024 19:40 ROSHAN HERNANDEZ MD Sep 06, 2024 20:28
--- NOTE | 2024-09-04 21:18 | DVHPN2 ---
Progress Note - Dictate Date Seen: Sep 04, 2024 Medical Necessity Reason Pt with a Central, PICC or Fol: Yes The following are medically ne: PICC Line, Vigil Catheter Reason for vigil catheter: Strict I&O Subjective Tube feeds were started however patient developed diarrhea Tube feeds are on hold at the moment vital signs Vital Sign Date Time Temp Pulse Resp B/P (MAP) Pulse Ox O2 Delivery O2 Flow Rate FiO2 09/04/24 20:32 88 18 114/71 (85) 100 30 09/04/24 18:00 Mechanical Ventilator+ 09/04/24 16:00 98.2 98.2 09/04/24 14:32 8 Total Intake and Output 09/03/24 09/03/24 09/04/24 15:00 23:00 07:00 Intake Total 600 ml 714 ml Output Total 200 ml 500 ml Balance 400 ml 214 ml medications Current Medications Medications Dose Ordered Sig/Kristen Route Start Time Stop Time Status Last Admin Dose Admin Ondansetron HCl 4 mg Q4HP PRN IV 08/11/24 13:00 Acetaminophen 650 mg Q6HP PRN PO 08/11/24 13:00 Albuterol 2.5 mg Q6HWA NEB 08/11/24 18:00 09/04/24 18:22 2.5 MG Ipratropium [place] 0.5 mg Q6HWA NEB 08/11/24 18:00 09/04/24 18:22 0.5 MG Albuterol 2.5 mg Q2HPRN PRN NEB 08/11/24 20:45 08/20/24 10:09 2.5 MG Ipratropium [place] 0.5 mg Q2HPRN PRN NEB 08/11/24 20:45 08/20/24 10:09 0.5 MG Pantoprazole Sodium 40 mg DAILY IV 08/13/24 10:00 09/04/24 09:00 40 MG Sodium Chloride 10 ml QSHIFT@, IV 08/20/24 22:00 09/04/24 09:00 10 ML Diagnostic Test (Pha) 1 strip ACHS 08/23/24 17:00 09/04/24 16:49 1 STRIP Insulin Human Regular ACHS SC 08/23/24 17:00 09/03/24 17:24 2 UNITS Dextrose 50 ml UD PRN IV 08/23/24 14:15 Bisacodyl 10 mg QHSP PRN FL 08/24/24 14:15 Potassium Chloride 100 ml @ 50 mls/hr Q2H IV 08/24/24 22:00 08/25/24 01:59 UNV Lorazepam 1 mg ONCE PRN IV 08/27/24 10:00 Purified Water 300 ml Q6HR GT 09/02/24 18:00 09/04/24 17:52 300 ML Hydralazine HCl 10 mg Q6HP PRN IV 09/02/24 17:45 Enteral Nutritional Formula 1,000 ml 40ML/HR GT 09/04/24 09:00 Potassium Chloride 100 ml @ 50 mls/hr Q2H IV 09/04/24 09:15 09/04/24 13:14 UNV objective VITAL SIGNS: Afebrile, stable signs. S/P tracheostomy on ventilator CHEST AND LUNGS: b/l coarse breath sounds HEART: Within normal limits.S1S2 rrr ABDOMEN: Soft.NT ND, G-tube site is clean Ext no c/c/e laboratory and microbiology Laboratory Tests 09/04/24 04:45 Test 09/04/24 04:45 Range/Units Serum Glucose 120 H 74-106 mg/dL Problems(with codes): (1) Ventilator dependence (2) Pulmonary vascular congestion (3) Pneumonia (4) CHF exacerbation (5) COPD exacerbation Prognosis Plan Resume tube feedings at 10-20 mL/hour and continue to observe Patient is scheduled for possible transfer to [facility] for ongoing care and ventilator management Thank you for allowing me to participate in the care of this patient Dietary Evaluation Review Recommendations by RD: Protein Supplementation Comments: 1) Increase TF rate from 30 mL/hr to 35 mL/hr. Initiate Pro-Stat @ 30 mL bid. Goal rate (including Pro-Stat) will provide 1208 kcals, 77g Pro, and 1178 mL free H2O (including flushes) per 24 hrs. Goal rate will meet ~ 100% estimated daily energy needs and ~94% estimated daily protein needs 2) Initiate vitamin C @ 500 mg and zinc sulfate @ 220 mg qd for 7 days 3) Advance to cardiac diet when medically feasible, pending DIE EQUIPMENT OPERATOR approval 4) F/u with cardiology and pulmonology 5) Continue to monitor I&O, labs, and skin integrity Expected Outcomes/Goals: 1) appetite and labs to improve 2) diet to advance 3) f/u in 2-3 Interpretation of weight loss: up to 20% in 1 year Plan discussed with: Other (None) HANSA OLMOS MD Sep 04, 2024 21:17
--- NOTE | 2024-09-04 22:57 | DVHPN2 ---
Progress Note - Dictate Date Seen: Sep 04, 2024 Medical Necessity Reason Pt with a Central, PICC or Fol: Yes The following are medically ne: PICC Line, Vigil Catheter Reason for vigil catheter: Strict I&O Subjective Patient was seen and evaluated in follow up in the ICU. Patient is intubated and sedated on ventilator. 30% FiO2. Tube feeds were started however patient developed diarrhea and are now being held. Patient had spontaneous eye opening but does not respond to voice commands or painful stimuli. WBC 10.9, K 3.4, BUN 31. Chest x-ray shows cardiomegaly with mild congestion. Pending transfer to [place]. vital signs Vital Sign Date Time Temp Pulse Resp B/P (MAP) Pulse Ox O2 Delivery O2 Flow Rate FiO2 09/04/24 11:00 93 17 126/80 (95) 100 09/04/24 10:00 Mechanical Ventilator+ 30 30 09/04/24 08:00 97.8 97.8 Total Intake and Output 09/03/24 09/03/24 09/04/24 15:00 23:00 07:00 Intake Total 600 ml 714 ml Output Total 200 ml 500 ml Balance 400 ml 214 ml medications Current Medications Medications Dose Ordered Sig/Kristen Route Start Time Stop Time Status Last Admin Dose Admin Ondansetron HCl 4 mg Q4HP PRN IV 08/11/24 13:00 Acetaminophen 650 mg Q6HP PRN PO 08/11/24 13:00 Albuterol 2.5 mg Q6HWA NEB 08/11/24 18:00 09/04/24 06:43 2.5 MG Ipratropium [place] 0.5 mg Q6HWA NEB 08/11/24 18:00 09/04/24 06:43 0.5 MG Albuterol 2.5 mg Q2HPRN PRN NEB 08/11/24 20:45 08/20/24 10:09 2.5 MG Ipratropium [place] 0.5 mg Q2HPRN PRN NEB 08/11/24 20:45 08/20/24 10:09 0.5 MG Pantoprazole Sodium 40 mg DAILY IV 08/13/24 10:00 09/04/24 09:00 40 MG Sodium Chloride 10 ml QSHIFT@10,22 IV 08/20/24 22:00 09/04/24 09:00 10 ML Diagnostic Test (Pha) 1 strip ACHS 08/23/24 17:00 09/04/24 11:08 1 STRIP Insulin Human Regular ACHS SC 08/23/24 17:00 09/03/24 17:24 2 UNITS Dextrose 50 ml UD PRN IV 08/23/24 14:15 Bisacodyl 10 mg QHSP PRN PA 08/24/24 14:15 Potassium Chloride 100 ml @ 50 mls/hr Q2H IV 08/24/24 22:00 08/25/24 01:59 UNV Lorazepam 1 mg ONCE PRN IV 08/27/24 10:00 Purified Water 300 ml Q6HR GT 09/02/24 18:00 09/04/24 11:25 300 ML Hydralazine HCl 10 mg Q6HP PRN IV 09/02/24 17:45 Enteral Nutritional Formula 1,000 ml 40ML/HR GT 09/04/24 09:00 Potassium Chloride 100 ml @ 50 mls/hr Q2H IV 09/04/24 09:15 09/04/24 13:14 UNV Potassium Chloride 50 ml @ 25 mls/hr Q2H IV 09/04/24 10:15 09/04/24 14:14 09/04/24 10:58 25 MLS/HR objective GENERAL: Intubated on ventilator. LUNGS: Decreased breath sounds. CARDIOVASCULAR: Heart sounds are good. ABDOMEN: Soft. laboratory and microbiology Laboratory Tests 09/04/24 04:45 Test 09/04/24 04:45 Range/Units Serum Glucose 120 H 74-106 mg/dL Problem List Metabolic encephalopathy/toxic encephalopathy/hypoxic encephalopathy. Status post cardiac arrest. Acute diastolic heart failure. New onset AFib. Paroxysmal Bradycardia . Acute hypoxic respiratory failure. Acute exacerbation of COPD. Pulmonary hypertension. Transaminitis. HECTOR. Pneumonia. Anemia of chronic disease. Obesity. Rheumatoid arthritis. Gout. Hypertension. Hyperlipidemia. Assessment/Plan Continued all current supportive medical care. Nebulized breathing treatments. IV Hydralazine for SBP > 150. GI prophylactics. Vasopressors for hemodynamic support. Additional plan as per the hospital course. Critical care time of 45 minutes provided to include time spent evaluation of patient at bedside, when appropriate patient/family education for diagnosis, treatment plan, review of pertinent medical information and discussion of care with specialty providers and PCP. Mechanical ventilator parameters, treatment and adjustments have personally been reviewed by me and treatment plan by journeyman pipe welder has also been reviewed. Dietary Evaluation Review Recommendations by RD: Protein Supplementation Comments: 1) Increase TF rate from 30 mL/hr to 35 mL/hr. Initiate Pro-Stat @ 30 mL bid. Goal rate (including Pro-Stat) will provide 1208 kcals, 77g Pro, and 1178 mL free H2O (including flushes) per 24 hrs. Goal rate will meet ~ 100% estimated daily energy needs and ~94% estimated daily protein needs 2) Initiate vitamin C @ 500 mg and zinc sulfate @ 220 mg qd for 7 days 3) Advance to cardiac diet when medically feasible, pending JOB PRINTER approval 4) F/u with cardiology and pulmonology 5) Continue to monitor I&O, labs, and skin integrity Expected Outcomes/Goals: 1) appetite and labs to improve 2) diet to advance 3) f/u in 2-3 Interpretation of weight loss: up to 20% in 1 year Plan discussed with: Other ASHLEY BRADFORD MD Sep 04, 2024 11:49
== END 2024-09-04 21:40 | DRG 4 ==
LOC: ER 08:07 → EDBD 08:07 → EDUNIT# 08:07 → OVERFLOW 12:58 → WEST WING 21:15 → TELE-WESTW 08-12 00:55 → ICU CENTRL 08-12 13:10
PROVIDERS: ADMIT Internal Medicine; ATTEND Internal Medicine
PROC: 5A1955Z Respiratory Ventilation, Greater than 96 Consecutive Hours (ICD-10-PCS; principal; 2024-08-12)
PROC: 5A12012 Performance of Cardiac Output, Single, Manual (ICD-10-PCS; 2024-08-12)
PROC: 0BH17EZ Insertion of Endotracheal Airway into Trachea, Via Natural or Artificial Opening (ICD-10-PCS; 2024-08-12)
PROC: 02HV33Z Insertion of Infusion Device into Superior Vena Cava, Percutaneous Approach (ICD-10-PCS; 2024-08-12)
PROC: B548ZZA Ultrasonography of Superior Vena Cava, Guidance (ICD-10-PCS; 2024-08-12)
PROC: 0BJ08ZZ Inspection of Tracheobronchial Tree, Via Natural or Artificial Opening Endoscopic (ICD-10-PCS; 2024-08-12)
PROC: 03HY32Z Insertion of Monitoring Device into Upper Artery, Percutaneous Approach (ICD-10-PCS; 2024-08-12)
PROC: 02HV33Z Insertion of Infusion Device into Superior Vena Cava, Percutaneous Approach (ICD-10-PCS; 2024-08-20)
PROC: B548ZZA Ultrasonography of Superior Vena Cava, Guidance (ICD-10-PCS; 2024-08-20)
PROC: 0B110F4 Bypass Trachea to Cutaneous with Tracheostomy Device, Open Approach (ICD-10-PCS; 2024-08-27)
PROC: 0DB68ZX Excision of Stomach, Via Natural or Artificial Opening Endoscopic, Diagnostic (ICD-10-PCS; 2024-09-02)
PROC: 0DH63UZ Insertion of Feeding Device into Stomach, Percutaneous Approach (ICD-10-PCS; 2024-09-02)
DX: A41.9 Sepsis, unspecified organism (principal); I46.9 Cardiac arrest, cause unspecified; J96.21 Acute and chronic respiratory failure with hypoxia; J96.22 Acute and chronic respiratory failure with hypercapnia; R65.21 Severe sepsis with septic shock; J69.0 Pneumonitis due to inhalation of food and vomit; N17.0 Acute kidney failure with tubular necrosis; I50.33 Acute on chronic diastolic (congestive) heart failure; J18.9 Pneumonia, unspecified organism; G93.41 Metabolic encephalopathy; G93.1 Anoxic brain damage, not elsewhere classified; J44.1 Chronic obstructive pulmonary disease with (acute) exacerbation; I48.92 Unspecified atrial flutter; Z99.11 Dependence on respirator [ventilator] status; E46 Unspecified protein-calorie malnutrition; E87.4 Mixed disorder of acid-base balance; E87.0 Hyperosmolality and hypernatremia; E87.3 Alkalosis; J44.0 Chronic obstructive pulmonary disease with (acute) lower respiratory infection; N30.01 Acute cystitis with hematuria; I25.10 Atherosclerotic heart disease of native coronary artery without angina pectoris; E78.5 Hyperlipidemia, unspecified; I16.0 Hypertensive urgency; E66.9 Obesity, unspecified; I11.0 Hypertensive heart disease with heart failure; D63.8 Anemia in other chronic diseases classified elsewhere; I48.91 Unspecified atrial fibrillation; N28.1 Cyst of kidney, acquired; E86.0 Dehydration; K44.9 Diaphragmatic hernia without obstruction or gangrene; M06.9 Rheumatoid arthritis, unspecified; R74.01 Elevation of levels of liver transaminase levels; M10.9 Gout, unspecified; E87.6 Hypokalemia; E11.65 Type 2 diabetes mellitus with hyperglycemia; Z68.36 Body mass index [BMI] 36.0-36.9, adult; Z98.51 Tubal ligation status; Z96.653 Presence of artificial knee joint, bilateral; Z88.1 Allergy status to other antibiotic agents; Z79.899 Other long term (current) drug therapy
CPT/HCPCS: 36415; 36556; 36569; 36600; 36620; 43239; 43246; 70450; 70551; 71045; 71275; 74018; 76937; 80048; 80053; 80202; 81001; 82550; 82565; 82805; 82962; 83735; 83880; 84100; 84484; 85007; 85025; 85027; 85379; 85610; 85730; 87040; 87070; 87081; 87086; 87088; 87205; 92950; 93005; 93306; 93970; 94002; 94003; 94640; 95819; 96365; 96375; 99291; 99292; G0378; J0171; J1100; J1335; J1450; J1815; J2003; J2248; J2250; J2470; J2543; J3480; J3490; J7060